=== PATIENT | female | born 1995 | race African-American/Black ===

== ENCOUNTER 2020-12-05 15:13 | Inpatient (IN) | payer OTHER, SELFPAY ==
--- NOTE | ~2020-12-05 | MR_ITS ---
EXAMINATION: MR BRAIN WITHOUT AND WITH CONTRAST CLINICAL INFORMATION: Abnormal EEG. Psychosis. Traumatic brain injury. COMPARISON: None available. TECHNIQUE: MRI of the brain was obtained using routine sequences without and following the administration of 8 mL of Gadavist intravenous contrast. FINDINGS: No focal restricted diffusion is demonstrated to suggest acute or subacute cerebral ischemia. No evidence of acute or chronic hemorrhagic products on heme-sensitive imaging. Normal parenchymal signal characteristics. The ventricles are normal in morphology and size. No abnormal mass effect. No midline shift. There is a mixed intensity nodular lesion associated with the pituitary gland that extends into the suprasellar cistern that demonstrates partial T1 hyperintensity and T2 hyperintensity. A portion of this lesion appears to demonstrate enhancement, potentially extending along the pituitary infundibulum. The lesion measures approximately 0.8 x 0.7 x 0.5 cm (although characterization is partially limited by the thickness of slices on this exam). Normal positioning of the cerebellar tonsils. Normal arterial and venous vascular flow voids are present. Small development of venous anomaly within the anterior right frontal lobe. No additional abnormal contrast enhancement. Normal, homogeneous marrow signal. Mild mucosal thickening of the paranasal sinuses. Moderate leftward nasal septal deviation. No signal abnormalities within the mastoids. Multiple soft tissue nodules within the superficial lobes of the left greater than right parotid gland, measuring up to 1.4 cm on the left. There appears to be mildly increased upper cervical chain lymph nodes which are not definitively increased in size on this exam. MR/MR head/brain wo/w con IMPRESSION: 1. No demonstrated acute intracranial abnormalities. 2. Mixed intensity, partially enhancing lesion associated with the pituitary gland extending into the suprasellar cistern. This may represent an underlying adenoma but could be further characterized with dedicated pituitary protocol MRI. 3. No additional suspicious intracranial enhancement. 4. Nonspecific mildly prominent upper cervical chain lymph nodes. Nodules within the bilateral parotid glands may represent intraparotid lymph nodes.
[2020-12-05 15:44] VITALS: BP 139/88; PULSE 113; RESP 16; TEMP 36.9; O2SAT 100; BMI 29.2
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
[2020-12-05 18:28] LABS: COVID-19 Test Negative (Negative); IDNOW Serial# 9DD0AD1C
--- NOTE | 2020-12-05 19:49 | PC.NURSE ---
pt seen by the care tea, pt sitting up in bed, visable on the monitor, protocal maintained with checks.
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
--- NOTE | 2020-12-05 23:01 | MHC.CARE ---
CARE Team reached out to [facility] and to [facility] to see if there were any inpatient psychiatric beds at [facility] as pt and pt's family would prefer that pt go there for treatment. Both [facility] and [facility] reported that there are no open beds and that there will be no open beds this weekend. Pt is a [facility] bedsearch at this time.
[2020-12-06 01:10] LABS: Basophils Percent Auto 0.7 % (0-2); Eosinophils Absolute Auto 0.1 X10*3/uL (0.0-0.4); Eosinophils Percent Auto 1.1 % (0-4); Hemoglobin 13.1 g/dl (12.0-16.0); Imm Gran Abs Auto 0.01 X10*3/uL (0.00-0.03); Imm Gran Pct Auto 0.2 % (0.0-0.4); Lymphocytes Absolute Auto 2.6 X10*3/uL (1.2-4.9); MANUAL DIFF FLAG NO; Mean Corpuscular HGB Conc 34.5 g/dl (31.0-35.0); Mean Corpuscular Hemoglobin 31.2 pg (27.0-33.0); Mean Corpuscular Volume 90.5 fL (80-98); Mean Platelet Volume 9.3 fL (9.4-12.3); Monocytes Absolute Auto 0.7 X10*3/uL (0.1-1.2); Monocytes Percent Auto 11.9 % (2-11); Neutrophils Absolute Auto 2.2 X10*3/uL (2.0-8.3); Neutrophils Percent Auto 40.1 % (45-73); Platelet Count 452 X10*3/uL (160-400); Red Cell Distribution Width 13.2 % (11.0-16.0); White Blood Count 5.6 X10*3/uL (4.8-10.8)
[2020-12-06 01:27] LABS: Alanine Aminotransferase 51 U/L (0-31); Albumin Level 4.3 g/dL (3.5-5.0); Alkaline Phosphatase 97 U/L (39-117); Anion Gap 14 (12-20); Aspartate Amino Transferase 35 U/L (5-31); Bilirubin Total 0.8 mg/dL (0.0-1.0); Blood Urea Nitrogen 5 mg/dL (9-16); Calcium 9.7 mg/dL (8.4-10.2); Carbon Dioxide 24 mmol/L (22-29); Chloride 106 mmol/L (96-108); Creatinine Clr Calc Pharmacy 115.2; Estimated Glomerular Filt Rate > 60; Glucose Random 101 mg/dL (60-115); Potassium 3.6 mmol/L (3.3-5.1); Sodium 140 mmol/L (135-145); Total Protein 7.4 g/dL (6.5-8.0)
--- NOTE | 2020-12-06 02:45 | PC.NURSE ---
pt trying to stay awake, pt nodding off. and is now laying down. pt visable on the monitor, rr reg even and no s./s of distress.
--- NOTE | 2020-12-06 04:57 | PC.NURSE ---
pt asked to give a urine and states she will not.
--- NOTE | 2020-12-06 10:26 | PHA.MEDREC ---
Pharmacy Consult ? Medication Reconciliation Pharmacy has completed the medication reconciliation. Patient refused to talk she said she already told multiple people what medications she take. All she said was she has not taken anything because she is sick. I spoke with patient's mother, Stephenie who reports patient refuses to take medications and it has been about 2 months since she last took her medications. Her active claim history includes: - bupropion XL 300 mg at bedtime - bupropion XL 300 mg daily - doxazosin 1 mg at bedtime - famotidine 20 mg BID - Zofran 2 mg q 6-8hr - olanzapine 15 mg bedtime - metoclopramide Selam Bourne, PharmD
[2020-12-06 10:28] VITALS: BP 143/101; PULSE 94; RESP 16; O2SAT 100
--- NOTE | 2020-12-06 11:46 | PC.NURSE ---
PT asking for nutrition consult, states that she has not eaten in days. Provider notified, consult placed.
--- NOTE | 2020-12-06 17:57 | PC.NURSE ---
PT appears to be responding internally at times. Can be seen making gestures with her hands while looking towards the wall, clapping her hands and laughing at random.
[2020-12-07 06:37] VITALS: BP 109/71; PULSE 104; RESP 18; O2SAT 96
--- NOTE | 2020-12-07 06:47 | PC.NURSE ---
pt slept thru the night, on waking pt was asked for a urine sample, pt states no one has asked her for one, pt has been asked multiple times and has refused. today pt states she will give us urine after drinking her apple juice. no foam cups due to the texture per pt. pt was ruid and used inapprop lang with staff.
[2020-12-07 12:06] VITALS: BP 114/75; PULSE 74; RESP 18; TEMP 37.1; O2SAT 97
--- NOTE | 2020-12-07 14:35 | PC.NURSE ---
pt responding to internal stimuli
--- NOTE | 2020-12-07 15:10 | PC.NURSE ---
Report received. Pt currently resting in room, no complaints at this time, calm and cooperative, no signs of distress. Continues to be a section 12 bed search.
--- NOTE | 2020-12-07 17:22 | PC.NURSE ---
Pt sitting on her bed, lights off in room. Responding to internal stimuli, conversing in self-dialogue.
--- NOTE | 2020-12-07 21:11 | PC.NURSE ---
Pt responding to internal stimuli; sitting on edge of bed, self dialoguing; Currently resting in bed eyes closed, respiration even, unlabored.
[2020-12-08 04:42] VITALS: BP 112/77; PULSE 104; RESP 16; TEMP 37; O2SAT 99
--- NOTE | 2020-12-08 05:59 | MHC.MBSS ---
Patient was up most part of the night watching TV, no distress observed/reported, behavior mostly non-disruptive but thought process disorganized, offered medication for sleep refused, refused to provide urine sample, patient is per-accepted to [facility], disposition is section 12 inpatient bed search, will continue to monitor.
--- NOTE | 2020-12-08 07:09 | PC.NURSE ---
patient appears to remain asleep at present respirations are evn and unlabored, patient appears in no distress
[2020-12-08 08:56] VITALS: BP 130/88; PULSE 92; RESP 14; TEMP 36.8; O2SAT 100
--- NOTE | 2020-12-08 09:07 | PC.NURSE ---
patient seemed irrritable upon t/w's approach with scheduled meds who ordered these meds t/w responded the provider when you came in dont they know griffin been throwing up for days? t/w this is the first i am hearing of it pt responds you need to write in my chart that i cant take pills patient states youre not going to do it, lyndsey olivas
[2020-12-08 11:31] LABS: Amphetamine Screen Urine Not Detected (Not Detect); Barbiturates, Urine Not Detected (Not Detect); Benzodiazepines Screen Urine Not Detected (Not Detect); Cannabinoid Screen Urine POSITIVE (Not Detect); Cocaine Screen Urine Not Detected (Not Detect); Fentanyl, urine Not Detected (Not Detect); Opiate Screen Urine Not Detected (Not Detect); Phencyclidine Screen Urine Not Detected (Not Detect)
--- NOTE | 2020-12-08 12:24 | ECG_ITS ---
Test Reason : atyp. antipsychotic use Blood Pressure : / mmHG Vent. Rate : 097 BPM Atrial Rate : 097 BPM P-R Int : 130 ms QRS Dur : 072 ms QT Int : 344 ms P-R-T Axes : 062 056 036 degrees QTc Int : 436 ms Normal sinus rhythm Normal ECG No previous ECGs available Referred By: Elma Johnson Electronically Signed By:MELCHOR GONZALES MD
[2020-12-08 15:46] VITALS: BP 132/76; PULSE 127; RESP 16; TEMP 36.4; O2SAT 99
--- NOTE | 2020-12-08 16:37 | PC.NURSE ---
Pt signed a Three Day Notice on Friday 12/08 up on 12/11.
--- NOTE | 2020-12-08 18:47 | PC.ADMIT ---
25 y.o female admitted from [facility] to [facility] for psychiatric evaluation. Pt arrived to ED via ambulance on sec 12a for decompensated behavior and functioning secondary to noncompliance with medications for past 2 months per outpatient therapist. Pt A&O, with irritable mood, full affect, and loud-pressured speech. Pt paranoid and delusional, does not appear to be responding to internal stimuli. Pt has been refusing to eat or drink and has lost a notable amount of weight, and has been sleeping poorly. Pt denies SI/HI but has a history of suicide attempts and has been aggressive and threatening towards family members. Pervious inpatient admissions at [facility]. Per Pt report Nausea and declined to any interventions including medications. Pt brief in interview. Pt reports that she does not feel safe at home and would like to have help with living arrangements. Pt denies si,hi, avh at this time. Pt On CV. Pt signed 3 day notice 12/08/2020 up on 12/11/2020. Pt on 15 min safety checks.
[2020-12-09 06:00] VITALS: BP 120/82; PULSE 105; RESP 18; TEMP 36.6; O2SAT 98
[2020-12-09 08:45] LABS: Estimated Average Glucose 97 mg/dL
[2020-12-09 09:06] LABS: Cholesterol 124 mg/dL; HDL Cholesterol 51 mg/dL; LDL Cholesterol Calculated 62 mg/dl; Triglycerides 56 mg/dL
[2020-12-09 09:19] LABS: Free T4 (Free Thyroxine) 1.07 ng/dL (0.71-1.85); Thyroid Stimulating Hormone 2.71 uIU/mL (0.32-4.0)
[2020-12-09 09:29] LABS: Folate 8.9 ng/mL (> or = 4.0); Vitamin B12 643 pg/mL (200-900)
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
--- NOTE | 2020-12-09 15:18 | MHC.CLN ---
RE: CONSULT HT 64 WT 170# IBW 120#+/-10% PT IS 142% IBW INDICATES OBESE FOR HT; BMI 29.2 LABS: 12/06/20 ALBUMIN 4.3 WNL MEDS; PT REPORTED SHE STOPPED TAKING HER MEDS FOR MONTHS ENN: 1422KCALS, 62G PROTEIN, 1860CC H20 DIET RX: REGULAR-APPROPRIATE PT REPORTED FEELING NAUSEOUS MAIN CAUSE OF NOT TAKING MEDS OR FOOD HOWEVER PT REFUSES TO TAKE MEDS FOR NAUSEA WHEN OFFERED PER STAFF PT'S NONCOMPLIANCE WITH PYSCH MEDS MAY BE CONTRIBUTOR TO POOR PO INTAKE IF NAUSEA CONTINUES; RECOMMEND GI CONSULT MONITOR PO INTAKE CLOSELY GSR TO ASSIST IN FILLING OUT MENU
[2020-12-09 18:00] VITALS: BP 126/81; PULSE 97; TEMP 36.3; O2SAT 100
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
[2020-12-10 19:46] VITALS: BP 124/95; PULSE 100; RESP 18; TEMP 36.4
[2020-12-11 06:00] VITALS: BP 118/83; PULSE 94; RESP 16; TEMP 36.3; O2SAT 98
--- NOTE | 2020-12-11 16:29 | P.EN_ITS ---
Event Note Date of Service: 12/11/20 Event Note: Return message from [facility]. Pt was told to stop Gena ace due to adverse response however she is cleared to take other medications prescribed. The team is available to pt as needed [phone]. GI consult ordered for pt today while hospitalized.
--- NOTE | 2020-12-11 16:29 | PM.EVENT ---
Event Note Date of Service: 12/11/20 Event Note: Return message from [facility]. Pt was told to stop Reglan due to adverse response however she is cleared to take other medications prescribed. The team is available to pt as needed [phone]. GI consult ordered for pt today while hospitalized.
--- NOTE | 2020-12-11 17:13 | P.PNPSI_ITS ---
Subjective Subjective Date of Service: 12/11/20 Reason For Visit: Schizoaffective Disorder Subjective Notes: Section 7 Interim History: Application for civil commitment filed due to pt's filing of TDN and decline to retract. Met with pt very briefly, initiated explanation of Section VII, she responded, Give me the paperwork, you are as useless as shit. She left the meeting abruptly after this. Care discussed with pt's father Jason Rueda who reports pt has been in and out of hospital over the past years including [facility], [facility] for ~1 month in 2019. Presentation this admit is similiar to last admit. Pt did well for a few years and was working [id number] began to become dysregulated Feb-Mar 2020. Parents have been monitoring her carefully- her father is a primary care physical and her mother a psychologist, however it is hard to know how to be most helpful to her at this time. Pt seen at [facility]-hx of Olanzapine plus Haldol, Prozac, Prazosin. She did well on these, Haldol was discontinued and Prozac changed to Wellbutrin due to GI sx-when she deteriorated (since spring 2020). PRITCHETT trials have been done-pt did not like them.[facility] had pt on PRITCHETT. Anibal nsideration due to GI issues may be possible if pt agrees. GI issues have been ongoing. She has no special food preferences. She completed cholecystectomy 5-6 years ago but does eat a high fat diet with lots of cheese and seltzer. She has not been eating regularly and family does have evidence that she has been vomiting. She has been smoking a significant amt of cannabis and family wonders if she has the vomiting syndrome associated with cannabis. Sx increased in Feb-Mar 2020 with repeat episodes of vomiting. Prozac was changed to Wellbutrin and pt's sx worsened with the change. [facility], Dr. Mart has done several tests-upper endoscopy was scheduled for this week. No clear cause of sx has been found yet. Team is thinking GI-Brain connection. Reglan trial was not helpful with resulting dystonia, possible seizure. EEG was completed last week. MRI was scheduled, CAT was completed 08/12. [facility] Teleneuro was consulted as well. Family has observed pt becoming more paranoid and spending more time in her room. She is unable to hear others and is dismissive which is not typical of her demeanor. Medication Compliance: No Side effects from medications: Yes (GI-Eval in progress) Attending Groups: No Review of Systems Acute medical concerns: Yes Nausea/Vomiting Medical Review of Systems: unchanged Review of Systems Review of Systems Yes Unobtainable due to mental status Constitutional: Reports poor appetite Gastrointestinal: Reports abdominal pain, Reports dyspepsia, Reports nausea, Reports vomiting and Reports other (unable to take her medicines.) Reports behavioral changes Psychiatric: Reports behavioral changes, Reports depression, Reports irritability, Reports mood swings, Reports paranoia and Reports homicidal ideation Mental Status Exam Mental Status Exam Patient Appearance: Disheveled Patient Orientation: Person, Place and Situation Level of Consciousness: Awake and Alert Patient Behavior: Guarded, Talkative, Suspicious, Aggressive (verbally), Belligerent, Swearing (a lot), Anxious, Fearful, Resistive to Care, Avoidant, Distractible, Good Eye Contact and Impulsive Mood Description: Labile and Angry Affect Description: Labile Patient Cognition Impaired: No Ability to Follow Directions: Good Speech Pattern: Clear, Perseverating, Spontaneous Speech, Rapid, Pressured and Includes Profanity Memory Description: Episodic Impaired Hallucinations: None (denies) Delusions: Paranoid Ideation and Present Perceptual Disturbances: Depersonalization and Derealization Thought Process: Racing, Distracted and Evasive Thought Content: positive for Racing, positive for Circumstantial, positive for Tangential, positive for Evasive, positive for Suicidal Ideation (denies) and positive for Homicidal Ideation (denies) Depressive Symptoms: Increased Anxiety, Insomnia, Diff. Making Decisions, Increased Irritability, Difficulty Sleeping, Changes in Appetite, Significant Weight Loss, Loss of Int. in Activity, Hopelessness, Isolating-Friends/Family, Unhappiness, Loss of Energy and Difficulty Concentrating Abnormal Motor Activity Signs and Symptoms: Agitation and Restlessness Judgement: Poor Diagnostics Vital Signs (24Hr): Vital Signs - 24 hr 12/10/20 19:46 12/11/20 06:00 Temperature 97.6 F 97.4 F Pulse Rate 100 94 Respiratory Rate 18 16 Blood Pressure 124/95 H 118/83 Pulse Oximetry 98 Body Mass Index 29.2 Labs Results: 12/06/20 01:03 12/06/20 01:03 Medications Medications Current Medications Acetaminophen (Acetaminophen 325 Mg Tablet) 650 mg PO Q6H PRN PRN Reason: Headache/Pain Mild Scale (1-3) Al Hydroxide/Mg Hydroxide (Magnesium Hydrox/Alum Hydrox 30 Ml Oral.Susp) 30 ml PO Q6H PRN PRN Reason: Heartburn/Nausea Bupropion HCl (Bupropion Hcl Xl 300 Mg Tab.Er.24h) 300 mg PO DAILY [facility] Last Admin: 12/11/20 08:09 Dose: Not Given Documented by: Hydroxyzine HCl (Hydroxyzine Hcl 25 Mg Tablet) 25 mg PO BEDTIME PRN PRN Reason: Anxiety Magnesium Hydroxide (Milk Of Magnesia 30 Ml Oral.Susp) 30 ml PO DAILY PRN PRN Reason: Constipation Olanzapine (Olanzapine 7.5 Mg Tablet) 15 mg PO DAILY [facility] Last Admin: 12/11/20 08:09 Dose: Not Given Documented by: Pharmacy Consult (Consult Rx Perform Med Rec) 1 each MISCELLANE ONCE PRN PRN Reason: Consult order Trazodone HCl (Trazodone Hcl 50 Mg Tablet) 50 mg PO BEDTIME PRN PRN Reason: Insomnia Allergies Allergies Allergy/AdvReac Type Severity Reaction Status Date / Time metoclopramide [From Reglan] Allergy Muscle Verified 12/06/20 07:02 cramps Assessment & Plan Assessment & Plan (1) Schizoaffective disorder, bipolar type: Status: Acute Code(s): F25.0 - Schizoaffective disorder, bipolar type (2) IBS (irritable bowel syndrome): Status: Acute Code(s): K58.9 - Irritable bowel syndrome without diarrhea Assessment and Plan: IMPRESSION: Pt is a 25 y.o. Female who carries a diagnosis of schizoaffective disorder. She has a hx of [facility] for paranoid delusional thought content and depression. Had OP services at [facility] but stopped taking medications and has been thus been decompensating. Crisis/ED reports family is afraid of patients aggressive behaviors, reports neglecting self care, not eating, not sleeping... Currently Pt is refusing PO medications at this time, may be interested in IM zyprexa. Currently patient does not want male provider and effort is being made to see if she can be switched to female provider. Patient admitted for safety and medication management Plan: Patient signed CV; patient then signed 3 day notice Q 15 minutes checks for safety Will work on switching to female provider Patient refusing p.o. meds Patient may be open to taking Zyprexa intramuscularly Will obtain collateral from family 12/10/20: Collateral contact with [facility] MRI- MRCP negative on 10/08/20-Pt provided with a copy center associate y of this. Message left for Dr. Mart of [facility] [phone] to discuss GI plan of care and if pt needs a consult while admitted. Nutritional eval ordered Pt declines contact with family and providers TDN expires 12/11/20. Pt informed I will proceed with request for commitment and asked to reconsider remaining here so we may re-establish her medications safely with consultation from her GI team, which cannot all be accomplished by 12/11. She will consider. She has made no decision on meds yet. 12/11/20 Care discussed with pt's father Section VII filed. GI consult appreciated. Continue evaluation. I spent 45_ minutes with the patient and/or on the patient floor today, greater than?50% of which was spent counseling/coordinating care. Patient educated on: therapeutic strategies and other Informed Consent: further education needed Reason for contiued inpatient stay Substantial Risk for: harm to self, harm to others, inability to function and med/psych decompensation
[2020-12-11 18:00] VITALS: BP 108/85; PULSE 80
--- NOTE | 2020-12-11 21:24 | PM.GICN ---
History of Present Illness Data of Consult Service Date: 12/11/20 Requesting physician: Hiram Canales Primary Care Provider: Unknown Physician HPI Reason for consult: nausea 25 yr old f with schizoaffective disorder and depression who I saw with a radarman on the psych unit. Patient admitted with decompensation of her mental condition per notes although this is denied by her. She has had chronic nausea and mid abdominal pain with flaky stools since a very young age. Abdominal oain is crampy and worse with food even water. Symptoms are intermittent and seem to occur every other week. She takes THC daily since teenage years, and did stop it for 6 months with no improvement in sx. in fact she felt it made her sx better. She was given reglan but couldn't cont due to cramps and SE. she denies reflux sx. Does admit to [facility] She said she had EGD 2012 and was 'blurry' inside. She also had GI care at [facility] with Dr Mart and had an MRi that was apparently nml. She denies having had a colonoscopy. Review of Systems Review of Systems: Yes Unobtainable due to mental status and Other (unoperative) Gastrointestinal: Gastrointestinal: Reports abdominal pain, Reports dyspepsia, Reports nausea and Reports other (unable to take her medicines.) Neurologic: Reports behavioral changes Psychiatric: Psychiatric: Reports behavioral changes and Reports depression [facility] Past Medical History Medical History (Updated 12/11/20 @ 21:53 by Archana Gomez MD) IBS (irritable bowel syndrome) Schizoaffective disorder, bipolar type Schizophrenia Social History Social History Household Members: Family Housing: House Do you presently have visiting nurse or other home services: No Unable to assess alcohol history related to: Unknown Patient Tobacco Use Status: Former Tobacco user Tobacco use type: Cigarette Smoked in Last 30 Days: No e-Cigarette/Vaping Use: Never Used Patient Interested in Nicotine Replacement: No Patient Given Instructions on How to Stop Smoking: No Second Hand Smoke Exposure: No Use of substances other than those prescribed or required for medical reasons: Yes Substance Use Type: Marijuana Substance Use Frequency: Daily Last Used Substance: Just Prior to Admission Currently Displaying Signs/Symptoms of Drug Intoxication Withdrawal: No Any prior treatment program specific to substance use: No Advance Directives: No Advance Directives Information Provided: Yes Healthcare Proxy: No Guardian: No Do you have thoughts of harming others: None Do you have a plan to hurt others: No Plan Recently lost weight without trying: Yes How much weight loss: Unsure Eating poorly because of decreased appetite: Yes Nutrition screen score: 5 Nutrition Risks: Poor intake 0-25% >4 days Patient : No : No Poor oral hygiene: No service: No Meds Allergies Allergy/AdvReac Type Severity Reaction Status Date / Time metoclopramide [From Reglan] Allergy Muscle Verified 12/06/20 07:02 cramps Active Medications: Current Medications Acetaminophen (Acetaminophen 325 Mg Tablet) 650 mg PO Q6H PRN PRN Reason: Headache/Pain Mild Scale (1-3) Al Hydroxide/Mg Hydroxide (Magnesium Hydrox/Alum Hydrox 30 Ml Oral.Susp) 30 ml PO Q6H PRN PRN Reason: Heartburn/Nausea Bupropion HCl (Bupropion Hcl Xl 300 Mg Tab.Er.24h) 300 mg PO DAILY [facility] Last Admin: 12/11/20 08:09 Dose: Not Given Documented by: Hydroxyzine HCl (Hydroxyzine Hcl 25 Mg Tablet) 25 mg PO BEDTIME PRN PRN Reason: Anxiety Magnesium Hydroxide (Milk Of Magnesia 30 Ml Oral.Susp) 30 ml PO DAILY PRN PRN Reason: Constipation Olanzapine (Olanzapine 7.5 Mg Tablet) 15 mg PO DAILY [facility] Last Admin: 12/11/20 08:09 Dose: Not Given Documented by: Pharmacy Consult (Consult Rx Perform Med Rec) 1 each MISCELLANE ONCE PRN PRN Reason: Consult order Trazodone HCl (Trazodone Hcl 50 Mg Tablet) 50 mg PO BEDTIME PRN PRN Reason: Insomnia Home Medications Medication Instructions Recorded Confirmed Last Taken Type bupropion HCl 300 mg 24 hr tablet, 300 mg PO QAM 12/07/20 12/07/20 Unknown History extended release (Wellbutrin XL) olanzapine 15 mg tablet (Zyprexa) 15 mg PO DAILY 12/07/20 12/07/20 Unknown History Physical Exam Vital Signs: Vital Signs: Last Vital Signs Temp 97.4 F 12/11/20 06:00 Pulse 94 12/11/20 06:00 Resp 16 12/11/20 06:00 BP 118/83 12/11/20 06:00 Pulse Ox 98 12/11/20 06:00 Body Mass Index 29.2 EXAM: GENERAL: The patient is well developed and nontoxic. VITAL SIGNS:see workflow HEENT: Nonicteric sclerae, PERRLA, EOMI. Oropharynx clear. Moist mucous membranes. Conjunctivae appear well perfused. No thyroid mass. CHEST: Chest wall is nontender. HEART: Regular rate and rhythm without murmurs. LUNGS: Clear to auscultation bilaterally. ABDOMEN: Soft, positive bowel sounds, nontender, no organomegaly.no flank tenderness SKIN: No rash, no excessive bruising, petechiae, or purpura. NEUROLOGIC: Cranial nerves II-XII intact without motor/sensory deficit. psych - abn affect, slash shah on arms Const: Other: Appearance: Alert. Oriented, pacing, uncooperative Eyes: Pupils equal, round and reactive to light. ENT: Pharynx normal. Neck: Normal inspection CVS: Unable to assess, patient does not want to be touched Respiratory: No respiratory distress Abdomen: Unable to assess Skin: Normal color Extremities: Standing, walking with steady gait Neuro: Cranial nerves 2-12 grossly intact Psych: Seems manic, uncooperative, angry Results Labs CBC & Chem 7: 12/06/20 01:03 12/06/20 01:03 ECG Attestation: I personally reviewed and interpreted this ECG as follows: (SR, nml QTC) Assessment and Plan (1) Nausea: Status: Acute 1/ Persistent nausea and abn bowel habit with abdominal pain DDX: functional dyspepsia, gastroparesis, gastritis, esophagitis, GERD, less likely central cause, medication effect, mast cell diorder plan: 1/ get notes from [facility] re- recent GI work up 2/ will order stool tests and labs incl calprotectin, elastase , tryptase, histamine, celiac serology, h pylori stool ag test 3/ can try sublingual zofran4 mg q6-8 hr meantime and add daily pantoprazole 20 mg, assess response 4/ if no recent egd thne may consider this as well as colonoscopy with tissue biopsy as an o/p Procedures Date of Service Date of Service: 12/11/20
[2020-12-11 23:24] LABS: Folate 6.8 ng/mL (> or = 4.0); Vitamin B12 561 pg/mL (200-900)
[2020-12-12 00:05] LABS: Erythrocyte Sedimentation Rate 9 MM/HR (0-20)
[2020-12-12 06:00] VITALS: BP 138/65; PULSE 101; RESP 16; TEMP 36.6; O2SAT 100
--- NOTE | 2020-12-12 16:46 | P.PNPSI_ITS ---
Subjective Subjective Date of Service: 12/12/20 Reason For Visit: Schizoaffective Disorder Subjective Notes: Section 7 Interim History: Visable in milieu however does spend much time in her room. Today, awake in bed, declines to meet, does accept a handout on Olanzapine-both IM, PO, short and long acting. GI eval in progress. Records received from [facility] WNL.Section VII. Court 12/17. Medication Compliance: No Side effects from medications: Yes (GI) Attending Groups: No Review of Systems Acute medical concerns: No Medical Review of Systems: unchanged Review of Systems Review of Systems Yes Unobtainable due to mental status and Other (unoperative) Gastrointestinal: Reports abdominal pain, Reports dyspepsia, Reports nausea and Reports other (unable to take her medicines.) Reports behavioral changes Psychiatric: Reports behavioral changes and Reports depression Mental Status Exam Mental Status Exam Patient Appearance: Disheveled Patient Orientation: Person, Place and Situation Level of Consciousness: Awake and Alert Patient Behavior: Guarded, Talkative, Suspicious, Aggressive (verbally), Belligerent, Swearing (a lot), Anxious, Fearful, Resistive to Care, Avoidant, Distractible, Good Eye Contact and Impulsive Mood Description: Labile and Angry Affect Description: Labile Patient Cognition Impaired: No Ability to Follow Directions: Good Speech Pattern: Clear, Perseverating, Spontaneous Speech, Rapid, Pressured and Includes Profanity Memory Description: Episodic Impaired Hallucinations: None (denies) Delusions: Paranoid Ideation and Present Perceptual Disturbances: Depersonalization and Derealization Thought Process: Racing, Distracted and Evasive Thought Content: positive for Racing, positive for Circumstantial, positive for Tangential, positive for Evasive, positive for Suicidal Ideation (denies) and positive for Homicidal Ideation (denies) Depressive Symptoms: Increased Anxiety, Insomnia, Diff. Making Decisions, Increased Irritability, Difficulty Sleeping, Changes in Appetite, Significant Weight Loss, Loss of Int. in Activity, Hopelessness, Isolating-Friends/Family, Unhappiness, Loss of Energy and Difficulty Concentrating Abnormal Motor Activity Signs and Symptoms: Agitation and Restlessness Judgement: Poor Diagnostics Vital Signs (24Hr): Vital Signs - 24 hr 12/11/20 18:00 12/12/20 06:00 Temperature 97.9 F Pulse Rate 80 101 H Respiratory Rate 16 Blood Pressure 108/85 138/65 Pulse Oximetry 100 Body Mass Index 29.2 Labs Results: 12/06/20 01:03 12/06/20 01:03 Labs: Laboratory Results - last 48 hr 12/11/20 12/11/20 22:23 22:23 ESR 9 Vitamin B12 561 Folate 6.8 Medications Medications Current Medications Acetaminophen (Acetaminophen 325 Mg Tablet) 650 mg PO Q6H PRN PRN Reason: Headache/Pain Mild Scale (1-3) Al Hydroxide/Mg Hydroxide (Magnesium Hydrox/Alum Hydrox 30 Ml Oral.Susp) 30 ml PO Q6H PRN PRN Reason: Heartburn/Nausea Bupropion HCl (Bupropion Hcl Xl 300 Mg Tab.Er.24h) 300 mg PO DAILY [facility] Last Admin: 12/12/20 08:32 Dose: Not Given Documented by: Hydroxyzine HCl (Hydroxyzine Hcl 25 Mg Tablet) 25 mg PO BEDTIME PRN PRN Reason: Anxiety Magnesium Hydroxide (Milk Of Magnesia 30 Ml Oral.Susp) 30 ml PO DAILY PRN PRN Reason: Constipation Olanzapine (Olanzapine 7.5 Mg Tablet) 15 mg PO DAILY [facility] Last Admin: 12/12/20 08:32 Dose: Not Given Documented by: Pharmacy Consult (Consult Rx Perform Med Rec) 1 each MISCELLANE ONCE PRN PRN Reason: Consult order Trazodone HCl (Trazodone Hcl 50 Mg Tablet) 50 mg PO BEDTIME PRN PRN Reason: Insomnia Allergies Allergies Allergy/AdvReac Type Severity Reaction Status Date / Time metoclopramide [From Reglan] Allergy Muscle Verified 12/06/20 07:02 cramps Assessment & Plan Assessment & Plan (1) Schizoaffective disorder, bipolar type: Status: Acute Code(s): F25.0 - Schizoaffective disorder, bipolar type (2) IBS (irritable bowel syndrome): Status: Acute Code(s): K58.9 - Irritable bowel syndrome without diarrhea Assessment and Plan: IMPRESSION: Pt is a 25 y.o. Female who carries a diagnosis of schizoaffective disorder. She has a hx of [facility] for paranoid delusional thought content and depression. Had OP services at [facility] but stopped taking medications and has been thus been decompensating. Crisis/ED reports family is afraid of patients aggressive behaviors, reports neglecting self care, not eating, not sleeping... Currently Pt is refusing PO medications at this time, may be interested in IM zyprexa. Currently patient does not want male provider and effort is being made to see if she can be switched to female provider. Patient admitted for safety and medication management Plan: Patient signed CV; patient then signed 3 day notice Q 15 minutes checks for safety Will work on switching to female provider Patient refusing p.o. meds Patient may be open to taking Zyprexa intramuscularly Will obtain collateral from family 12/10/20: Collateral contact with [facility] MRI- MRCP negative on 10/08/20-Pt provided with a copy of this. Message left for Dr. Mart of [facility] [phone] to discuss GI plan of care and if pt needs a consult while admitted. Nutritional eval ordered Pt declines contact with family and providers TDN expires 12/11/20. Pt informed I will proceed with request for commitment and asked to reconsider remaining here so we may re-establish her medications safely with consultation from her GI team, which cannot all be accomplished by 12/11. She will consider. She has made no decision on meds yet. 12/11/20 Care discussed with pt's father Section VII filed. GI consult appreciated. Continue evaluation. 12/12/20 Continue eval Pt given information on IM Olanzapine for review. I spent minutes with the patient and/or on the patient floor today, greater than?50% of which was spent counseling/coordinating care. Reason for contiued inpatient stay Substantial Risk for: harm to self, harm to others, inability to function, rapid decompensation and med/psych decompensation
[2020-12-13 11:35] LABS: Ceruloplasmin 34 mg/dL (18-53)
[2020-12-13 18:00] VITALS: BP 109/65; PULSE 96; RESP 18; TEMP 37.1; O2SAT 100
--- NOTE | 2020-12-13 18:53 | HO.PSYCHPN ---
Subjective Subjective Date of Service: 12/13/20 Reason For Visit: Schizoaffective Disorder Subjective Notes: Floyd Warning and Section 7 Medical Problems Affecting Mental Status: No Interim History: Delaney was mono-syllabic. She continues to refuse treatment and she has no insight into her illness. She tends to isolate and stay in her room. Medication Compliance: Intermittent Side effects from medications: No Attending Groups: No Review of Systems Acute medical concerns: No Medical Review of Systems: unchanged Mental Status Exam Mental Status Exam Patient Appearance: Disheveled Patient Orientation: Person, Place and Situation Level of Consciousness: Awake and Alert Patient Behavior: Guarded, Talkative, Suspicious, Aggressive (verbally), Belligerent, Swearing (a lot), Anxious, Fearful, Resistive to Care, Avoidant, Distractible, Good Eye Contact and Impulsive Mood Description: Labile and Angry Affect Description: Labile Patient Cognition Impaired: No Ability to Follow Directions: Good Speech Pattern: Clear, Perseverating, Spontaneous Speech, Rapid, Pressured and Includes Profanity Memory Description: Episodic Impaired Hallucinations: None (denies) Delusions: Paranoid Ideation and Present Perceptual Disturbances: Depersonalization and Derealization Thought Process: Racing, Distracted and Evasive Thought Content: positive for Racing, positive for Circumstantial, positive for Tangential, positive for Evasive, positive for Suicidal Ideation (denies) and positive for Homicidal Ideation (denies) Depressive Symptoms: Increased Anxiety, Insomnia, Diff. Making Decisions, Increased Irritability, Difficulty Sleeping, Changes in Appetite, Significant Weight Loss, Loss of Int. in Activity, Hopelessness, Isolating-Friends/Family, Unhappiness, Loss of Energy and Difficulty Concentrating Abnormal Motor Activity Signs and Symptoms: Agitation and Restlessness Judgement: Poor Diagnostics Vital Signs (24Hr): Vital Signs - 24 hr 12/13/20 18:00 Temperature 98.7 F Pulse Rate 96 Respiratory Rate 18 Blood Pressure 109/65 Pulse Oximetry 100 Body Mass Index 29.2 Labs Results: 12/06/20 01:03 12/06/20 01:03 Labs: Laboratory Results - last 48 hr 12/11/20 12/11/20 12/11/20 22:23 22:23 22:23 ESR 9 Ceruloplasmin 34 Vitamin B12 561 Folate 6.8 Medications Medications Current Medications Acetaminophen (Acetaminophen 325 Mg Tablet) 650 mg PO Q6H PRN PRN Reason: Headache/Pain Mild Scale (1-3) Al Hydroxide/Mg Hydroxide (Magnesium Hydrox/Alum Hydrox 30 Ml Oral.Susp) 30 ml PO Q6H PRN PRN Reason: Heartburn/Nausea Bupropion HCl (Bupropion Hcl Xl 300 Mg Tab.Er.24h) 300 mg PO DAILY [facility] Last Admin: 12/13/20 09:08 Dose: Not Given Documented by: Hydroxyzine HCl (Hydroxyzine Hcl 25 Mg Tablet) 25 mg PO BEDTIME PRN PRN Reason: Anxiety Magnesium Hydroxide (Milk Of Magnesia 30 Ml Oral.Susp) 30 ml PO DAILY PRN PRN Reason: Constipation Olanzapine (Olanzapine 7.5 Mg Tablet) 15 mg PO DAILY [facility] Last Admin: 12/13/20 09:08 Dose: Not Given Documented by: Pharmacy Consult (Consult Rx Perform Med Rec) 1 each MISCELLANE ONCE PRN PRN Reason: Consult order Trazodone HCl (Trazodone Hcl 50 Mg Tablet) 50 mg PO BEDTIME PRN PRN Reason: Insomnia Allergies Allergies Allergy/AdvReac Type Severity Reaction Status Date / Time metoclopramide [From Reglan] Allergy Muscle Verified 12/06/20 07:02 cramps Assessment & Plan Assessment & Plan (1) Schizoaffective disorder, bipolar type: Status: Acute Code(s): F25.0 - Schizoaffective disorder, bipolar type (2) IBS (irritable bowel syndrome): Status: Acute Code(s): K58.9 - Irritable bowel syndrome without diarrhea Assessment and Plan: IMPRESSION: Pt is a 25 y.o. Female who carries a diagnosis of schizoaffective disorder. She has a hx of [facility] for paranoid delusional thought content and depression. Had OP services at [facility] but stopped taking medications and has been thus been decompensating. Crisis/ED reports family is afraid of patients aggressive behaviors, reports neglecting self care, not eating, not sleeping... Currently Pt is refusing PO medications at this time, may be interested in IM zyprexa. Currently patient does not want male provider and effort is being made to see if she can be switched to female provider. Patient admitted for safety and medication management Plan: Patient signed CV; patient then signed 3 day notice Q 15 minutes checks for safety Will work on switching to female provider Patient refusing p.o. meds Patient may be open to taking Zyprexa intramuscularly Will obtain collateral from family 12/10/20: Collateral contact with [facility] MRI- MRCP negative on 10/08/20-Pt provided with a copy of this. Message left for Dr. Mart of [facility] [phone] to discuss GI plan of care and if pt needs a consult while admitted. Nutritional eval ordered Pt declines contact with family and providers TDN expires 12/11/20. Pt informed I will proceed with request for commitment and asked to reconsider remaining here so we may re-establish her medications safely with consultation from her GI team, which cannot all be accomplished by 12/11. She will consider. She has made no decision on meds yet. 12/11/20 Care discussed with pt's father Section VII filed. GI consult appreciated. Continue evaluation. 12/12/20 Continue eval Pt given information on IM Olanzapine for review. No change to the above plans I spent ___10___ minutes with the patient and/or on the patient floor today, greater than?50% of which was spent counseling/coordinating care. Informed Consent: does not understand Reason for contiued inpatient stay Substantial Risk for: inability to function and rapid decompensation
[2020-12-14 06:00] VITALS: BP 116/70; PULSE 93; RESP 16; TEMP 36.3; O2SAT 100
[2020-12-14 18:00] VITALS: BP 116/72; PULSE 88; TEMP 36.6; O2SAT 100
--- NOTE | 2020-12-14 18:49 | HO.PSYCHPN ---
Subjective Subjective Date of Service: 12/14/20 Reason For Visit: Schizoaffective Disorder Subjective Notes: Section 7 Medical Problems Affecting Mental Status: No Interim History: Delaney remains resistant to all aspects of treatment. She has not been bathing. She has been confrontational with her room mate, and hence a room change was made. She becomes angry when approached, and asks to be left alone. Medication Compliance: No Attending Groups: No Review of Systems Acute medical concerns: No Mental Status Exam Mental Status Exam Patient Appearance: Disheveled Patient Orientation: Person, Place and Situation Level of Consciousness: Awake and Alert Patient Behavior: Guarded, Suspicious, Aggressive (verbally), Belligerent, Swearing (a lot), Anxious, Fearful, Resistive to Care, Avoidant, Distractible, Good Eye Contact and Impulsive Mood Description: Labile and Angry Affect Description: Labile Patient Cognition Impaired: No Ability to Follow Directions: Good Speech Pattern: Clear, Perseverating, Spontaneous Speech, Rapid, Pressured and Includes Profanity Memory Description: Episodic Impaired Hallucinations: None (denies) Delusions: Paranoid Ideation and Present Perceptual Disturbances: Depersonalization and Derealization Thought Process: Racing, Distracted and Evasive Thought Content: positive for Racing, positive for Circumstantial, positive for Tangential, positive for Evasive, positive for Suicidal Ideation (denies) and positive for Homicidal Ideation (denies) Depressive Symptoms: Increased Anxiety, Insomnia, Diff. Making Decisions, Increased Irritability, Difficulty Sleeping, Changes in Appetite, Significant Weight Loss, Loss of Int. in Activity, Hopelessness, Isolating-Friends/Family, Unhappiness, Loss of Energy and Difficulty Concentrating Abnormal Motor Activity Signs and Symptoms: Agitation and Restlessness Judgement: Poor Diagnostics Vital Signs (24Hr): Vital Signs - 24 hr 12/14/20 06:00 Temperature 97.3 F Pulse Rate 93 Respiratory Rate 16 Blood Pressure 116/70 Pulse Oximetry 100 Body Mass Index 29.2 Labs Results: 12/06/20 01:03 12/06/20 01:03 Labs: Laboratory Results - last 48 hr 12/11/20 22:23 Ceruloplasmin 34 Medications Medications Current Medications Acetaminophen (Acetaminophen 325 Mg Tablet) 650 mg PO Q6H PRN PRN Reason: Headache/Pain Mild Scale (1-3) Al Hydroxide/Mg Hydroxide (Magnesium Hydrox/Alum Hydrox 30 Ml Oral.Susp) 30 ml PO Q6H PRN PRN Reason: Heartburn/Nausea Bupropion HCl (Bupropion Hcl Xl 300 Mg Tab.Er.24h) 300 mg PO DAILY [facility] Last Admin: 12/14/20 08:18 Dose: Not Given Documented by: Hydroxyzine HCl (Hydroxyzine Hcl 25 Mg Tablet) 25 mg PO BEDTIME PRN PRN Reason: Anxiety Magnesium Hydroxide (Milk Of Magnesia 30 Ml Oral.Susp) 30 ml PO DAILY PRN PRN Reason: Constipation Olanzapine (Olanzapine 7.5 Mg Tablet) 15 mg PO DAILY [facility] Last Admin: 12/14/20 08:18 Dose: Not Given Documented by: Pharmacy Consult (Consult Rx Perform Med Rec) 1 each MISCELLANE ONCE PRN PRN Reason: Consult order Trazodone HCl (Trazodone Hcl 50 Mg Tablet) 50 mg PO BEDTIME PRN PRN Reason: Insomnia Allergies Allergies Allergy/AdvReac Type Severity Reaction Status Date / Time metoclopramide [From Reglan] Allergy Muscle Verified 12/06/20 07:02 cramps Assessment & Plan Assessment & Plan (1) Schizoaffective disorder, bipolar type: Status: Acute Code(s): F25.0 - Schizoaffective disorder, bipolar type (2) IBS (irritable bowel syndrome): Status: Acute Code(s): K58.9 - Irritable bowel syndrome without diarrhea Assessment and Plan: IMPRESSION: Pt is a 25 y.o. Female who carries a diagnosis of schizoaffective disorder. She has a hx of [facility] for paranoid delusional thought content and depression. Had OP services at [facility] but stopped taking medications and has been thus been decompensating. Crisis/ED reports family is afraid of patients aggressive behaviors, reports neglecting self care, not eating, not sleeping... Currently Pt is refusing PO medications at this time, may be interested in IM zyprexa. Currently patient does not want male provider and effort is being made to see if she can be switched to female provider. Patient admitted for safety and medication management Plan: Patient signed CV; patient then signed 3 day notice Q 15 minutes checks for safety Will work on switching to female provider Patient refusing p.o. meds Patient may be open to taking Zyprexa intramuscularly Will obtain collateral from family 12/10/20: Collateral contact with [facility] MRI- MRCP negative on 10/08/20-Pt provided with a copy of this. Message left for Dr. Mart of [facility] [phone] to discuss GI plan of care and if pt needs a consult while admitted. Nutritional eval ordered Pt declines contact with family and providers TDN expires 12/11/20. Pt informed I will proceed with request for commitment and asked to reconsider remaining here so we may re-establish her medications safely with consultation from her GI team, which cannot all be accomplished by 12/11. She will consider. She has made no decision on meds yet. 12/11/20 Care discussed with pt's father Section VII filed. GI consult appreciated. Continue evaluation. 12/12/20 Continue eval Pt given information on IM Olanzapine for review. 12/13/20: No change to the above plans 12/14/20: No changes to the current plan I spent minutes with the patient and/or on the patient floor today, greater than?50% of which was spent counseling/coordinating care. Patient educated on: medication risk/benefits Informed Consent: does not understand Reason for contiued inpatient stay Substantial Risk for: harm to others, inability to function and rapid decompensation
[2020-12-15 06:00] VITALS: BP 105/57; PULSE 94; TEMP 37.2; O2SAT 99
[2020-12-15] MEDS: Ondansetron ODT 4 MG TAB.RAPDIS TRANSLINGU (12:56)
--- NOTE | 2020-12-15 15:54 | P.PNPSI_ITS ---
Subjective Subjective Date of Service: 12/15/20 Reason For Visit: Schizoaffective Disorder Subjective Notes: Section 7 Healthcare Proxy: No Guardianship: No Medical Problems Affecting Mental Status: No Interim History: Pt currently residing in Room 505 next to nursing station. Unable to give accurate history regarding medications. Telling tw to give haldol, however, per father (a physician) pt with hx of significant dystonia with Haldol. Discussed with pt. who states he is invalid, not existent and she will proceed with lawsuit for our consideration of his information. Attempted to discuss with pt efforts to treat her effectively and well, avoiding medications with adverse SE and in consideration of her PTSD, wanting no distress brought to her which is avoidable. Pt's response was in stating that she would decide the course of treatment, not family, out pt team, previous treatment experience, court. Consistent threats of lawsuit. Review with pt GI consult progress thus far- Zofran prn ordered, pantoprazole ordered but not available at [facility] so GI leadership development consultant chose Prilosec. Per father, pt has trialed Prilosec for several months without efficacy, Famotidine initially helped then stopped working, and Carafate trial of 2-3 doses precipitated vomiting. Pt to consider Zofran prn. GI diagnostics still pending. Pt's father called to provide information-family has cleaned pt's room since her admission and have found plates of food, black mold, perishable items in her room for weeks next to her bed which they see as evidence of pt's level of psychosis, unawareness and inability to care for herself. Medication Compliance: No Side effects from medications: No Attending Groups: No Review of Systems Acute medical concerns: Yes Review of Systems: GI Eval in progress. Review of Systems Review of Systems Yes Unobtainable due to mental status Reports behavioral changes Psychiatric: Reports anxiety, Reports behavioral changes, Reports change in appetite, Reports depression, Reports hopelessness, Reports irritability, Report s mood swings and Reports paranoia Mental Status Exam Mental Status Exam Patient Appearance: Disheveled Patient Orientation: Person, Place and Situation Level of Consciousness: Awake and Alert Patient Behavior: Guarded, Suspicious, Aggressive (verbally), Belligerent, Swearing (a lot), Anxious, Fearful, Resistive to Care, Avoidant, Distractible, Good Eye Contact and Impulsive Mood Description: Labile and Angry Affect Description: Labile Patient Cognition Impaired: No Ability to Follow Directions: Good Speech Pattern: Clear, Perseverating, Spontaneous Speech, Rapid, Pressured and Includes Profanity Memory Description: Episodic Impaired Hallucinations: None (denies) Delusions: Paranoid Ideation and Present Perceptual Disturbances: Depersonalization and Derealization Thought Process: Racing, Distracted and Evasive Thought Content: positive for Racing, positive for Circumstantial, positive for Tangential, positive for Evasive, positive for Suicidal Ideation (denies) and positive for Homicidal Ideation (denies) Depressive Symptoms: Increased Anxiety, Insomnia, Diff. Making Decisions, Increased Irritability, Difficulty Sleeping, Changes in Appetite, Significant Weight Loss, Loss of Int. in Activity, Hopelessness, Isolating-Friends/Family, Unhappiness, Loss of Energy and Difficulty Concentrating Abnormal Motor Activity Signs and Symptoms: Agitation and Restlessness Judgement: Poor Diagnostics Vital Signs (24Hr): Vital Signs - 24 hr 12/14/20 18:00 12/15/20 06:00 Temperature 98 F 98.9 F Pulse Rate 88 94 Blood Pressure 116/72 105/57 L Pulse Oximetry 100 99 Body Mass Index 29.2 Labs Results: 12/06/20 01:03 12/06/20 01:03 Medications Medications Current Medications Acetaminophen (Acetaminophen 325 Mg Tablet) 650 mg PO Q6H PRN PRN Reason: Headache/Pain Mild Scale (1-3) Al Hydroxide/Mg Hydroxide (Magnesium Hydrox/Alum Hydrox 30 Ml Oral.Susp) 30 ml PO Q6H PRN PRN Reason: Heartburn/Nausea Bupropion HCl (Bupropion Hcl Xl 300 Mg Tab.Er.24h) 300 mg PO DAILY [facility] Last Admin: 12/15/20 08:24 Dose: Not Given Documented by: Hydroxyzine HCl (Hydroxyzine Hcl 25 Mg Tablet) 25 mg PO BEDTIME PRN PRN Reason: Anxiety Magnesium Hydroxide (Milk Of Magnesia 30 Ml Oral.Susp) 30 ml PO DAILY PRN PRN Reason: Constipation Olanzapine (Olanzapine 7.5 Mg Tablet) 15 mg PO DAILY [facility] Last Admin: 12/15/20 08:24 Dose: Not Given Documented by: Omeprazole (Omeprazole 20 Mg Capsule.Dr) 20 mg PO DAILY@0630 [facility] Last Admin: 12/15/20 12:59 Dose: Not Given Documented by: Ondansetron HCl (Ondansetron Odt 4 Mg Tab.Rapdis) 4 mg TRANSLINGU Q8H PRN PRN Reason: Nausea Last Admin: 12/15/20 12:56 Dose: 4 mg Documented by: Pharmacy Consult (Consult Rx Perform Med Rec) 1 each MISCELLANE ONCE PRN PRN Reason: Consult order Trazodone HCl (Trazodone Hcl 50 Mg Tablet) 50 mg PO BEDTIME PRN PRN Reason: Insomnia Allergies Allergies Allergy/AdvReac Type Severity Reaction Status Date / Time metoclopramide [From Reglan] Allergy Muscle Verified 12/06/20 07:02 cramps Assessment & Plan Assessment & Plan (1) Schizoaffective disorder, bipolar type: Status: Acute Code(s): F25.0 - Schizoaffective disorder, bipolar type (2) IBS (irritable bowel syndrome): Status: Acute Code(s): K58.9 - Irritable bowel syndrome without diarrhea Assessment and Plan: IMPRESSION: Pt is a 25 y.o. Female who carries a diagnosis of schizoaffective disorder. She has a hx of [facility] for paranoid delusional thought content and depression. Had OP services at [facility] but stopped taking medications and has been thus been decompensating. Crisis/ED reports family is afraid of patients aggressive behaviors, reports neglecting self care, not eating, not sleeping... Currently Pt is refusing PO medications at this time, may be interested in IM zyprexa. Currently patient does not want male provider and effort is being made to see if she can be switched to female provider. Patient admitted for safety and medication management Plan: Patient signed CV; patient then signed 3 day notice Q 15 minutes checks for safety Will work on switching to female provider Patient refusing p.o. meds Patient may be open to taking Zyprexa intramuscularly Will obtain collateral from family 12/10/20: Collateral contact with [facility] MRI- MRCP negative on 10/08/20-Pt provided with a copy of this. Message left for Dr. Mart of [facility] [phone] to discuss GI plan of care and if pt needs a consult while admitted. Nutritional eval ordered Pt declines contact with family and providers TDN expires 12/11/20. Pt informed I will proceed with request for commitment and asked to reconsider remaining here so we may re-establish her medications safely with consultation from her GI team, which cannot all be accomplished by 12/11. She will consider. She has made no decision on meds yet. 12/11/20 Care discussed with pt's father Section VII filed. GI consult appreciated. Continue evaluation. 12/12/20 Continue eval Pt given information on IM Olanzapine for review. 12/13/20: No change to the above plans 12/14/20: No changes to the current plan 12/15/20: Encourage pt to trial IM Olanzapine. I spent _30 minutes with the patient and/or on the patient floor today, greater than?50% of which was spent counseling/coordinating care. Patient educated on: medication risk/benefits Informed Consent: understands and further education needed Reason for contiued inpatient stay Substantial Risk for: harm to self, harm to others, inability to function and rapid decompensation
[2020-12-15 18:00] VITALS: BP 130/66; PULSE 90; TEMP 36.9
[2020-12-16 06:00] VITALS: BP 108/58; PULSE 83; RESP 16; TEMP 36.7; O2SAT 100
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
[2020-12-16 21:25] VITALS: BP 123/70; PULSE 87; TEMP 36.3; O2SAT 98
[2020-12-16 22:31] LABS: Histamine Plasma <1.5 ng/mL (< OR = 1.8)
[2020-12-17 03:25] LABS: Zinc 51 mcg/dL (60-130)
--- NOTE | 2020-12-17 10:36 | P.PNPSI_ITS ---
Subjective Subjective Reason For Visit: Schizoaffective Disorder Diagnostics Vital Signs (24Hr): Vital Signs - 24 hr 12/16/20 21:25 Temperature 97.4 F Pulse Rate 87 Blood Pressure 123/70 Pulse Oximetry 98 Body Mass Index 29.2 Labs Results: 12/06/20 01:03 12/06/20 01:03 Labs: Laboratory Results - last 48 hr 12/11/20 12/12/20 12/12/20 22:23 08:35 08:35 Tryptase 3.8 Plasma Histamine <1.5 Zinc 51 L Medications Medications Current Medications Acetaminophen (Acetaminophen 325 Mg Tablet) 650 mg PO Q6H PRN PRN Reason: Headache/Pain Mild Scale (1-3) Al Hydroxide/Mg Hydroxide (Magnesium Hydrox/Alum Hydrox 30 Ml Oral.Susp) 30 ml PO Q6H PRN PRN Reason: Heartburn/Nausea Bupropion HCl (Bupropion Hcl Xl 300 Mg Tab.Er.24h) 300 mg PO DAILY [facility] Last Admin: 12/17/20 07:44 Dose: Not Given Documented by: Hydroxyzine HCl (Hydroxyzine Hcl 25 Mg Tablet) 25 mg PO BEDTIME PRN PRN Reason: Anxiety Magnesium Hydroxide (Milk Of Magnesia 30 Ml Oral.Susp) 30 ml PO DAILY PRN PRN Reason: Constipation Pt Own Med ( (Lansoprazole 30 Mg)) 1 each PO DAILY@30 [facility] Olanzapine (Olanzapine 7.5 Mg Tablet) 15 mg PO DAILY [facility] Last Admin: 12/17/20 07:44 Dose: Not Given Documented by: Omeprazole (Omeprazole 20 Mg Capsule.Dr) 20 mg PO DAILY@0630 [facility] Last Admin: 12/17/20 07:44 Dose: Not Given Documented by: Ondansetron HCl (Ondansetron Odt 4 Mg Tab.Rapdis) 4 mg TRANSLINGU Q8H PRN PRN Reason: Nausea Last Admin: 12/15/20 12:56 Dose: 4 mg Documented by: Pharmacy Consult (Consult Rx Perform Med Rec) 1 each MISCELLANE ONCE PRN PRN Reason: Consult order Trazodone HCl (Trazodone Hcl 50 Mg Tablet) 50 mg PO BEDTIME PRN PRN Reason: Insomnia Allergies Allergies Allergy/AdvReac Type Severity Reaction Status Date / Time metoclopramide [From Reglan] Allergy Muscle Verified 12/06/20 07:02 cramps haloperidol [From Haldol] AdvReac Severe Dystonia Verified 12/16/20 08:24 sucralfate [From Carafate] AdvReac Severe vomiting Verified 12/16/20 08:23 Assessment & Plan Assessment & Plan (1) Schizoaffective disorder, bipolar type: Status: Acute Code(s): F25.0 - Schizoaffective disorder, bipolar type (2) IBS (irritable bowel syndrome): Status: Acute Code(s): K58.9 - Irritable bowel syndrome without diarrhea Assessment and Plan: IMPRESSION: Pt is a 25 y.o. Female who carries a diagnosis of schizoaffective disorder. She has a hx of [facility] for paranoid delusional thought content and depression. Had OP services at [facility] but stopped taking medications and has been thus been decompensating. Crisis/ED reports family is afraid of patients aggressive behaviors, reports neglecting self care, not eating, not sleeping... Currently P t is refusing PO medications at this time, may be interested in IM zyprexa. Currently patient does not want male provider and effort is being made to see if she can be switched to female provider. Patient admitted for safety and medication management Plan: Patient signed CV; patient then signed 3 day notice Q 15 minutes checks for safety Will work on switching to female provider Patient refusing p.o. meds Patient may be open to taking Zyprexa intramuscularly Will obtain collateral from family 12/10/20: Collateral contact with [facility] MRI- MRCP negative on 10/08/20-Pt provided with a copy of this. Message left for Dr. Mart of [facility] [phone] to discuss GI plan of care and if pt needs a consult while admitted. Nutritional eval ordered Pt declines contact with family and providers TDN expires 12/11/20. Pt informed I will proceed with request for commitment and asked to reconsider remaining here so we may re-establish her medications safely with consultation from her GI team, which cannot all be accomplished by 12/11. She will consider. She has made no decision on meds yet. 12/11/20 Care discussed with pt's father Section VII filed. GI consult appreciated. Continue evaluation. 12/12/20 Continue eval Pt given information on IM Olanzapine for review. 12/13/20: No change to the above plans 12/14/20: No changes to the current plan 12/15/20: Encourage pt to trial IM Olanzapine. 12/16/20: Court date continued to Dec Dr. Gomez has suggested a trial of Lansoprazole 30 mg dissolvable which was ordered. I spent minutes with the patient and/or on the patient floor today, greater than?50% of which was spent counseling/coordinating care.
[2020-12-17 17:27] VITALS: BP 113/71; PULSE 95; RESP 16; TEMP 36.7; O2SAT 98
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
[2020-12-17] MEDS: OLANZapine 10 MG VIAL IM (19:52)
[2020-12-18] MEDS: OLANZapine 10 MG VIAL IM (10:21)
--- NOTE | 2020-12-18 13:42 | P.CNNE_ITS ---
History of Present Illness Data of Consult Service Date: 12/18/20 Primary Care Provider: Unknown Physician HPI Reason for consult: Abnormal EEG 25 years old woman with underlying she has of [place] a admitted on psychiatric hospital. Apparently she had an EEG done read by [facility] on December 05 that showed mild left posterior temporal slowing with no epileptiform discharges. There was no known history of seizure disorder. She had multiple psychiatric hospitalization and at this time she was in acute care for psychiatric symptoms. [facility] Past Medical History Medical History (Updated 12/18/20 @ 13:45 by Issac Tierney MD) IBS (irritable bowel syndrome) Schizoaffective disorder, bipolar type Schizophrenia Social History Social History Household Members: Family Housing: House Do you presently have visiting nurse or other home services: No Unable to assess alcohol history related to: Unknown Patient Tobacco Use Status: Former Tobacco user Tobacco use type: Cigarette Smoked in Last 30 Days: No e-Cigarette/Vaping Use: Never Used Patient Interested in Nicotine Replacement: No Patient Given Instructions on How to Stop Smoking: No Second Hand Smoke Exposure: No Use of substances other than those prescribed or required for medical reasons: Yes Substance Use Type: Marijuana Substance Use Frequency: Daily Last Used Substance: Just Prior to Admission Currently Displaying Signs/Symptoms of Drug Intoxication Withdrawal: No Any prior treatment program specific to substance use: No Advance Directives: No Advance Directives Information Provided: Yes Healthcare Proxy: No Guardian: No Do you have thoughts of harming others: None Do you have a plan to hurt others: No Plan Recently lost weight without trying: Yes How much weight loss: Unsure Eating poorly because of decreased appetite: Yes Nutrition screen score: 5 Nutrition Risks: Poor intake 0-25% >4 days Patient : No : No Poor oral hygiene: No service: No Meds Allergies Allergy/AdvReac Type Severity Reaction Status Date / Time metoclopramide [From Reglan] Allergy Muscle Verified 12/06/20 07:02 cramps haloperidol [From Haldol] AdvReac Severe Dystonia Verified 12/16/20 08:24 sucralfate [From Carafate] AdvReac Severe vomiting Verified 12/16/20 08:23 Active Medications: Current Medications Acetaminophen (Acetaminophen 325 Mg Tablet) 650 mg PO Q6H PRN PRN Reason: Headache/Pain Mild Scale (1-3) Al Hydroxide/Mg Hydroxide (Magnesium Hydrox/Alum Hydrox 30 Ml Oral.Susp) 30 ml PO Q6H PRN PRN Reason: Heartburn/Nausea Benztropine Mesylate (Benztropine Mesylate 1 Mg Tablet) 1 mg PO TID PRN PRN Reason: Extrapyramidal Effects Bupropion HCl (Bupropion Hcl Xl 300 Mg Tab.Er.24h) 300 mg PO DAILY [facility] Last Admin: 12/18/20 10:23 Dose: Not Given Documented by: Hydroxyzine HCl (Hydroxyzine Hcl 25 Mg Tablet) 25 mg PO BEDTIME PRN PRN Reason: Anxiety Magnesium Hydroxide (Milk Of Magnesia 30 Ml Oral.Susp) 30 ml PO DAILY PRN PRN Reason: Constipation Pt Own Med ( (Lansoprazole 30 Mg)) 1 each PO DAILY@0630 [facility] Last Admin: 12/18/20 10:23 Dose: Not Given Documented by: Olanzapine (Olanzapine 10 Mg Vial) 10 mg IM DAILY [facility] Last Admin: 12/18/20 10:21 Dose: 10 mg Documented by: Omeprazole (Omeprazole 20 Mg Capsule.Dr) 20 mg PO DAILY [facility] Last Admin: 12/18/20 10:23 Dose: Not Given Documented by: Ondansetron HCl (Ondansetron Odt 4 Mg Tab.Rapdis) 4 mg TRANSLINGU Q8H PRN PRN Reason: Nausea Last Admin: 12/15/20 12:56 Dose: 4 mg Documented by: Pharmacy Consult (Consult Rx Perform Med Rec) 1 each MISCELLANE ONCE PRN PRN Reason: Consult order Trazodone HCl (Trazodone Hcl 50 Mg Tablet) 50 mg PO BEDTIME PRN PRN Reason: Insomnia Home Medications Medication Instructions Recorded Confirmed Last Taken Type bupropion HCl 300 mg 24 hr tablet, 300 mg PO QAM 12/07/20 12/07/20 Unknown History extended release (Wellbutrin XL) olanzapine 15 mg tablet (Zyprexa) 15 mg PO DAILY 12/07/20 12/07/20 Unknown History Physical Exam Vital Signs: Vital Signs: Last Vital Signs Temp 98.0 F 12/17/20 17:27 Pulse 95 12/17/20 17:27 Resp 16 12/17/20 17:27 BP 113/71 12/17/20 17:27 Pulse Ox 98 12/17/20 17:27 Body Mass Index 29.2 Neuro: Other: She was alert and awake with normal spontaneity of speech fluency comprehension and anxious affect. Pupils were round reactive to light. Extraocular muscles are intact. Visual fletcher are full. Face was symmetrical. There was no focal weakness. Deep tendon reflexes were trace to absent with flexor plantars. Results Labs CBC & Chem 7: 12/06/20 01:03 12/06/20 01:03 Labs: An EEG at [facility] on December 05 read the [facility] revealed left posterior temporal slowing with no epileptic discharges. A noncontrast head CT 8 [facility] on November 13, according to report, did not reveal any significant abnormality. Assessment and Plan (1) Abnormal EEG: Status: Acute 25 years old woman with underlying diagnosis of she has a for any a and a recent abnormal EEG suggesting mild left temporal slowing. There was no clinical or EEG evidence of seizure disorder. Noncontrast head CT was okay. Examination was nonfocal. If she never had it before, I would recommend obtaini ng an MRI of brain with and without contrast to rule out any focal lesion explaining this abnormality. This type of abnormality could also be nonspecific. Procedures Date of Service Date of Service: 12/18/20
[2020-12-18 16:11] LABS: Transglutaminase Ab IgG <1.0 U/mL; Transglutaminase IgA <1.0 U/mL
--- NOTE | 2020-12-18 17:33 | HO.PSYCHPN ---
Subjective Subjective Date of Service: 12/18/20 Reason For Visit: Schizoaffective Disorder Interim History: Patient seen and discussed with team. Patient evaluated this morning and upon interview she reports im fine but also says everything is bothering me. Says I never feels safe, unable to fully articulate why she feels unsafe, attributes this to paranoia. Says her sleep is normal. Stressors include not liking the room she is in, was moved to room by RN station due to issues with roommate but pt says why did i have to move in here? Feels her roommate should have switched rooms, says the room she is in feels scary. Started olanzapine IM but upset that today the injection was brown and yellow, yesterday it was clear. Continues to c/o GI distress and says sublingual zofran did not help but she would be willing to re-trial it at a higher dose. Says she is somewhat eating. Mood is the same. Medication Compliance: Yes Side effects from medications: No Attending Groups: No Review of Systems Acute medical concerns: No Medical Review of Systems: unchanged Mental Status Exam Mental Status Exam Narrative: Patient Appearance:?Disheveled Patient Orientation:?Person, Place and Situation Level of Consciousness:?Awake and Alert Patient Behavior:?Guarded, Suspicious, Aggressive (verbally), Belligerent, Swearing (a lot), Anxious, Fearful, Resistive to Care, Avoidant, Distractible, Good Eye Contact and Impulsive Mood Description:?Labile and Angry Affect Description:?Labile Patient Cognition Impaired:?No Ability to Follow Directions:?Good Speech Pattern:?Clear, Perseverating, Spontaneous Speech, Rapid, Pressured and Includes Profanity Memory Description:?Episodic Impaired Hallucinations:?None (denies) Delusions:?Paranoid Ideation and Present Perceptual Disturbances:?Depersonalization and Derealization Thought Process:?Racing, Distracted and Evasive Thought Content:?positive for Racing, positive for Circumstantial, positive for Tangential, positive for Evasive, positive for Suicidal Ideation (denies) and positive for Homicidal Ideation (denies) Depressive Symptoms:?Increased Anxiety, Insomnia, Diff. Making Decisions, Increased Irritability, Difficulty Sleeping, Changes in Appetite, Significant Weight Loss, Loss of Int. in Activity, Hopelessness, Isolating-Friends/Family, Unhappiness, Loss of Energy and Difficulty Concentrating Abnormal Motor Activity Signs and Symptoms:?Agitation and Restlessness Judgement:?Poor Diagnostics Vital Signs (24Hr): Body Mass Index 29.2 Labs Results: 12/06/20 01:03 12/06/20 01:03 Labs: Laboratory Results - last 48 hr 12/11/20 12/11/20 12/12/20 22:23 22:23 08:35 Plasma Histamine <1.5 Zinc 51 L Tiss Transglutamin IgG <1.0 Tiss Transglutamin IgA <1.0 Medications Medications Current Medications Acetaminophen (Acetaminophen 325 Mg Tablet) 650 mg PO Q6H PRN PRN Reason: Headache/Pain Mild Scale (1-3) Al Hydroxide/Mg Hydroxide (Magnesium Hydrox/Alum Hydrox 30 Ml Oral.Susp) 30 ml PO Q6H PRN PRN Reason: Heartburn/Nausea Benztropine Mesylate (Benztropine Mesylate 1 Mg Tablet) 1 mg PO TID PRN PRN Reason: Extrapyramidal Effects Bupropion HCl (Bupropion Hcl Xl 300 Mg Tab.Er.24h) 300 mg PO DAILY [facility] Last Admin: 12/18/20 10:23 Dose: Not Given Documented by: Hydroxyzine HCl (Hydroxyzine Hcl 25 Mg Tablet) 25 mg PO BEDTIME PRN PRN Reason: Anxiety Magnesium Hydroxide (Milk Of Magnesia 30 Ml Oral.Susp) 30 ml PO DAILY PRN PRN Reason: Constipation Pt Own Med ( (Lansoprazole 30 Mg)) 1 each PO DAILY@0630 [facility] Last Admin: 12/18/20 10:23 Dose: Not Given Documented by: Olanzapine (Olanzapine 10 Mg Vial) 10 mg IM DAILY [facility] Last Admin: 12/18/20 10:21 Dose: 10 mg Documented by: Omeprazole (Omeprazole 20 Mg Capsule.Dr) 20 mg PO DAILY [facility] Last Admin: 12/18/20 10:23 Dose: Not Given Documented by: Ondansetron HCl (Ondansetron Odt 4 Mg Tab.Rapdis) 4 mg TRANSLINGU Q8H PRN PRN Reason: Nausea Last Admin: 12/15/20 12:56 Dose: 4 mg Documented by: Pharmacy Consult (Consult Rx Perform Med Rec) 1 each MISCELLANE ONCE PRN PRN Reason: Consult order Trazodone HCl (Trazodone Hcl 50 Mg Tablet) 50 mg PO BEDTIME PRN PRN Reason: Insomnia Allergies Allergies Allergy/AdvReac Type Severity Reaction Status Date / Time metoclopramide [From Reglan] Allergy Muscle Verified 12/06/20 07:02 cramps haloperidol [From Haldol] AdvReac Severe Dystonia Verified 12/16/20 08:24 sucralfate [From Carafate] AdvReac Severe vomiting Verified 12/16/20 08:23 Assessment & Plan Assessment & Plan (1) Abnormal EEG: Status: Acute Code(s): R94.01 - Abnormal electroencephalogram [EEG] (2) Schizoaffective disorder, bipolar type: Status: Acute Code(s): F25.0 - Schizoaffective disorder, bipolar type (3) IBS (irritable bowel syndrome): Status: Acute Code(s): K58.9 - Irritable bowel syndrome without diarrhea Assessment and Plan: IMPRESSION: Pt is a 25 y.o. Female who carries a diagnosis of schizoaffective disorder. She has a hx of [facility] for paranoid delusional thought content and depression. Had OP services at [facility] but stopped taking medications and has been thus been decompensating. Crisis/ED reports family is afraid of patients aggressive behaviors, reports neglecting self care, not eating, not sleeping... Currently Pt is refusing PO medications at this time, may be interested in IM zyprexa.? Currently patient does not want male provider and effort is being made to see if she can be switched to female provider.? Patient admitted for safety and medication management Plan: Patient signed CV; patient then signed 3 day notice Q 15 minutes checks for safety Will work on switching to female provider Patient refusing p.o. meds Patient may be open to taking Zyprexa intramuscularly Will obtain collateral from family 12/10/20: Collateral contact with [facility] MRI- MRCP negative on 10/08/20-Pt provided with a copy of this. Message left for Dr. Mart of [facility] [phone] to discuss GI plan of care and if pt needs a consult while admitted. Nutritional eval ordered Pt declines contact with family and providers TDN expires 12/11/20. Pt informed I will proceed with request for commitment and asked to reconsider remaining here so we may re-establish her medications safely with consultation from her GI team, which cannot all be accomplished by 12/11. She will consider. She has made no decision on meds yet. 12/11/20 Care discussed with pt's father Section VII filed. GI consult appreciated. Continue evaluation. 12/12/20 Continue eval Pt given information on IM Olanzapine for review. 12/13/20: No change to the above plans 12/14/20: No changes to the current plan 12/15/20: Encourage pt to trial IM Olanzapine. 12/16/20:? Court date continued to Dec ? Dr. Gomez has suggested a trial of Lansoprazole 30 mg dissolvable which was ordered. 12/17/20: Offer Lansoprazole when available, if effective PO atypicals ? Pt will accept IM Haldol-however, 3 reports indicated hx of significant dystonic reaction (father-a physician, [facility], and psychiatrist-[facility] records unable to be accessed). Continue to offer Olanzapine. 12/18/20: Pt has had two doses of IM olanzapine, tolerating it well. Continues to present with paranoia, internally preoccupied, irritable. She is willing to trial increased sublingual zofran to 8 mg BID PRN for continued GI distress. Had neuro consult, much appreciated, recent abnormal EEG suggesting mild left temporal slowing. There was no clinical or EEG evidence of seizure disorder.? Noncontrast head CT was okay.? Examination was nonfocal.?Dr. Vasquez recommend obtaining an MRI of brain with and without contrast to rule out any focal lesion explaining this abnormality. This type of abnormality could also be nonspecific. I spent minutes with the patient and/or on the patient floor today, greater than?50% of which was spent counseling/coordinating care. Reason for contiued inpatient stay Substantial Risk for: harm to self, inability to function, rapid decompensation and med/psych decompensation
[2020-12-18 18:00] VITALS: BP 111/77; PULSE 80; TEMP 36.6
[2020-12-19] MEDS: Ondansetron ODT 4 MG TAB.RAPDIS 8 MG TRANSLINGU (08:36)
[2020-12-19] MEDS: OLANZapine 10 MG VIAL IM (08:37)
--- NOTE | 2020-12-19 14:16 | P.PNPSI_ITS ---
Subjective Subjective Date of Service: 12/19/20 Reason For Visit: Schizoaffective Disorder Subjective Notes: Section 7 Healthcare Proxy: No Guardianship: No Medical Problems Affecting Mental Status: No Interim History: JOSSY completed 12/18/20. Met with pt who is caustic, verbally aggressive, accusatory, paranoid. Review of neuro eval and recommendation for MRI. Pt declines MRI at this time. Pt initiated Lansoprazole this a.m. When asked for her feedback thus far- well, I am not vomiting am I. Continuation of request on 12/17-pt wanting a print out of her meds from [facility]. Call to Noah of [facility] [phone] who reports they will not fax a list of prescriptions filled however will discuss this with pt via phone if she calls in-information given. Review of nutrition consult completed 12/09. Pt asks for another consult. When asked how Olanzpine is working she responds It does not w ork and like I told you I did not get the D word thing (dystonia). Denies feeling overmedicated at the current time and no sx of appearing overmedicated. Medication Compliance: Yes Side effects from medications: No Attending Groups: No Review of Systems Acute medical concerns: No Medical Review of Systems: unchanged Review of Systems Gastrointestinal: Reports nausea Reports behavioral changes Psychiatric: Reports anxiety, Reports behavioral changes, Reports change in appetite, Reports depression, Reports difficulty concentrating, Reports irritability, Reports anhedonia, Reports paranoia and Reports homicidal ideation (family found a large knife in pt's room at home while cleaning) Mental Status Exam Mental Status Exam Narrative: Patient Appearance:?Disheveled Patient Orientation:?Person, Place and Situation Level of Consciousness:?Awake and Alert Patient Behavior:?Guarded, Suspicious, Aggressive (verbally), Belligerent, Swearing (a lot), Anxious, Fearful, Resistive to Care, Avoidant, Distractible, Good Eye Contact and Impulsive Patient Appearance: Disheveled and Malodorous Patient Orientation: Person, Place and Situation Level of Consciousness: Alert Patient Behavior: Guarded, Talkative, Suspicious, Aggressive, Restless, Belligerent, Resistive to Care, Avoidant, Distractible, Isolative, Good Eye Contact and Impulsive Mood Description: Labile and Angry Affect Description: Labile and Angry Patient Cognition Impaired: Yes Ability to Follow Directions: Fair Speech Pattern: Spontaneous Speech, Rapid, Excessive and Loud Memory Description: Remote Impaired and Episodic Impaired Hallucinations: None Delusions: Paranoid Ideation and Present Thought Process: Racing and Evasive Thought Content: positive for Tangential and positive for Homicidal Ideation Depressive Symptoms: Increased Irritability Abnormal Motor Activity Signs and Symptoms: Aggression, Agitation and Restlessness Judgement: Poor Diagnostics Vital Signs (24Hr): Vital Signs - 24 hr 12/18/20 18:00 Temperature 97.9 F Pulse Rate 80 Blood Pressure 111/77 Body Mass Index 29.2 Labs Results: 12/06/20 01:03 12/06/20 01:03 Labs: Laboratory Results - last 48 hr 12/11/20 12/12/20 22:23 08:35 RAST Allergens SEE NOTE Tiss Transglutamin IgG <1.0 Tiss Transglutamin IgA <1.0 Medications Medications Current Medications Acetaminophen (Acetaminophen 325 Mg Tablet) 650 mg PO Q6H PRN PRN Reason: Headache/Pain Mild Scale (1-3) Al Hydroxide/Mg Hydroxide (Magnesium Hydrox/Alum Hydrox 30 Ml Oral.Susp) 30 ml PO Q6H PRN PRN Reason: Heartburn/Nausea Benztropine Mesylate (Benztropine Mesylate 1 Mg Tablet) 1 mg PO TID PRN PRN Reason: Extrapyramidal Effects Hydroxyzine HCl (Hydroxyzine Hcl 25 Mg Tablet) 25 mg PO BEDTIME PRN PRN Reason: Anxiety Magnesium Hydroxide (Milk Of Magnesia 30 Ml Oral.Susp) 30 ml PO DAILY PRN PRN Reason: Constipation Pt Own Med ( (Lansoprazole 30 Mg)) 1 each PO DAILY@0630 [facility] Last Admin: 12/19/20 08:36 Dose: 1 each Documented by: Olanzapine (Olanzapine 10 Mg Vial) 10 mg IM DAILY [facility] Last Admin: 12/19/20 08:37 Dose: 10 mg Documented by: Ondansetron HCl (Ondansetron Odt 4 Mg Tab.Rapdis) 8 mg TRANSLINGU Q8H PRN PRN Reason: Nausea Last Admin: 12/19/20 08:36 Dose: 8 mg Documented by: Pharmacy Consult (Consult Rx Perform Med Rec) 1 each MISCELLANE ONCE PRN PRN Reason: Consult order Trazodone HCl (Trazodone Hcl 50 Mg Tablet) 50 mg PO BEDTIME PRN PRN Reason: Insomnia Allergies Allergies Allergy/AdvReac Type Severity Reaction Status Date / Time metoclopramide [From Reglan] Allergy Muscle Verified 12/06/20 07:02 cramps haloperidol [From Haldol] AdvReac Severe Dystonia Verified 12/16/20 08:24 sucralfate [From Carafate] AdvReac Severe vomiting Verified 12/16/20 08:23 Assessment & Plan Assessment & Plan (1) Abnormal EEG: Status: Acute Code(s): R94.01 - Abnormal electroencephalogram [EEG] (2) Schizoaffective disorder, bipolar type: Status: Acute Code(s): F25.0 - Schizoaffective disorder, bipolar type (3) IBS (irritable bowel syndrome): Status: Acute Code(s): K58.9 - Irritable bowel syndrome without diarrhea Assessment and Plan: IMPRESSION: Pt is a 25 y.o. Female who carries a diagnosis of schizoaffective disorder. She has a hx of [facility] for paranoid delusional thought content and depression. Had OP services at [facility] but stopped taking medications and has been thus been decompensating. Crisis/ED reports family is afraid of patients aggressive behaviors, reports neglecting self care, not eating, not sleeping... Currently Pt is refusing PO medications at this time, may be interested in IM zyprexa.? Currently patient does not want male provider and effort is being made to see if she can be switched to female provider.? Patient admitted for safety and medication management Plan: Patient signed CV; patient then signed 3 day notice Q 15 minutes checks for safety Will work on switching to female provider Patient refusing p.o. meds Patient may be open to taking Zyprexa intramuscularly Will obtain collateral from family 12/10/20: Collateral contact with [facility] MRI- MRCP negative on 10/08/20-Pt provided with a copy of this. Message left for Dr. Mart of [facility] [phone] to discuss GI plan of care and if pt needs a consult while admitted. Nutritional eval ordered Pt declines contact with family and providers TDN expires 12/11/20. Pt informed I will proceed with request for commitment and asked to reconsider remaining here so we may re-establish her medications safely with consultation from her GI team, which cannot all be accomplished by 12/11. She will consider. She has made no decision on meds yet. 12/11/20 Care discussed with pt's father Section VII filed. GI consult appreciated. Continue evaluation. 12/12/20 Continue eval Pt given information on IM Olanzapine for review. 12/13/20: No change to the above plans 12/14/20: No changes to the current plan 12/15/20: Encourage pt to trial IM Olanzapine. 12/16/20:? Court date continued to Dec ? Dr. Gomez has suggested a trial of Lansoprazole 30 mg dissolvable which was ordered. 12/17/20: Offer Lansoprazole when available, if effective PO atypicals ? Pt will accept IM Haldol-however, 3 reports indicated hx of significant dystonic reaction (father-a physician, [facility], and psychiatrist-[facility] records unable to be accessed). Continue to offer Olanzapine. 12/18/20: Pt has had two doses of IM olanzapine, tolerating it well. Continues to present with paranoia, internally preoccupied, irritable. She is willing to trial increased sublingual zofran to 8 mg BID PRN for continued GI distress. Had neuro consult, much appreciated, recent abnormal EEG suggesting mild left temporal slowing. There was no clinical or EEG evidence of seizure disorder.? Noncontrast head CT was okay.? Examination was nonfocal.?Dr. Vasquez recommend obtaining an MRI of brain with and without contrast to rule out any focal lesion explaining this abnormality. This type of abnormality could also be nonspecific. 12/19/20 Pt has declined MRI Lansoprazole 30 mg initiated and tolerate Repeat nutrition consult ordered. I spent ___25___ minutes with the patient and/or on the patient floor today, greater than?50% of which was spent counseling/coordinating care. Patient educated on: medication risk/benefits, therapeutic strategies and medical condition Informed Consent: further education needed Reason for contiued inpatient stay Substantial Risk for: harm to self, harm to others, inability to function, rapid decompensation and med/psych decompensation
--- NOTE | 2020-12-19 14:33 | MHC.CLN ---
RE: CONSULT FOR N/V MEDS: PT STARTED ON LANSOPRAZOLE-PT REPORTS MEDS HAVE NOT HELPED; REMAINS THE SAME ENN: [id number], 62G PROTEIN, 1860CC H20 DIET RX: REGULAR-APPROPRIATE PT REPORTED FEELING NAUSEOUS MAIN CAUSE OF NOT TAKING PO DISCUSSED WITH PT FOODS TO ASSIST IN SYMPTOM MANAGEMENT I.E. BROTH, CRAX, G'DAYANA, TOAST OFFERED PT BLAND DIET AND/OR CLEAR LIQUID DIET PT DECLINED BOTH TYPES OF DIETS STATED, I WON'T EAT THAT ANYWAY EXPLAINED PROCESS FOR FILLING OUT MENU WITH [employer] FROM [employer]; PT CAN ORDER FOOD ITEMS NOTED ABOVE WITH ANY MEAL IF NEEDED PT REFUSED TO DISCUSS WT OR WT LOSS RELATED TO NAUSEA. PT APPEARS WELL NOURISHED [facility] TO ASSIST IN FILLING OUT MENU MONITOR PO INTAKE AND WEIGHT CLOSELY
[2020-12-19 18:00] VITALS: BP 108/74; PULSE 85; RESP 16; TEMP 36.5; O2SAT 99
[2020-12-20 06:00] VITALS: BP 120/81; PULSE 109; RESP 18; TEMP 36.2; O2SAT 100
--- NOTE | 2020-12-20 09:19 | P.PNPSI_ITS ---
Subjective Subjective Date of Service: 12/20/20 Reason For Visit: Schizoaffective Disorder Interim History: JOSSY completed 12/18/20. 12/19/20:Met with pt who is caustic, verbally aggressive, accusatory, paranoid. Review of neuro eval and recommendation for MRI. Pt declines MRI at this time. Pt initiated Lansoprazole this a.m. When asked for her feedback thus far- well, I am not vomiting am I. Continuation of request on 12/17-pt wanting a print out of her meds from [facility]. Call to Noah of [facility] [phone] who reports they will not fax a list of prescriptions filled however will discuss this with pt via phone if she calls in-information given. Review of nutrition consult completed 12/09. Pt asks for another consult. When asked how Olanzpine is working she responds It does not work and like I told you I did not get the D word thing (dystonia). Denies feeling overmedicated at the current time and no sx of appearing overmedicated. 12/20: Unkempt/malodorous. Minimal engagement. Accepting IM OLZ Review of Systems Review of Systems Yes Unobtainable due to mental status and Other (unoperative) Constitutional: Reports poor appetite Reports odynophagia Gastrointestinal: Reports abdominal pain, Reports early satiety, Reports dyspepsia, Reports nausea, Reports odynophagia, Reports vomiting and Reports other (unable to take her medicines.) Reports behavioral changes Psychiatric: Reports abnormal sleep pattern, Reports anxiety, Reports behavioral changes, Reports change in appetite, Reports depression, Reports difficulty concentrating, Reports hopelessness, Reports irritability, Reports anhedonia, Reports mood swings, Reports paranoia, Reports homicidal ideation (family found a large knife in pt's room at home while cleaning) and Reports other (reportedly aggressive to her family) Mental Status Exam Mental Status Exam Narrative: Patient Appearance:?Disheveled Patient Orientation:?Person, Place and Situation Level of Consciousness:?Awake and Alert Patient Behavior:?Guarded, Suspicious, Aggressive (verbally), Belligerent, Swearing (a lot), Anxious, Fearful, Resistive to Care, Avoidant, Distractible, Good Eye Contact and Impulsive Patient Appearance: Disheveled and Malodorous Patient Orientation: Person, Place and Situation Level of Consciousness: Alert Patient Behavior: Guarded, Talkative, Suspicious, Aggressive, Restless, Lira igerent, Resistive to Care, Avoidant, Distractible, Isolative, Good Eye Contact and Impulsive Mood Description: Labile and Angry Affect Description: Labile and Angry Patient Cognition Impaired: Yes Ability to Follow Directions: Fair Speech Pattern: Spontaneous Speech, Rapid, Excessive and Loud Memory Description: Remote Impaired and Episodic Impaired Diagnostics Vital Signs (24Hr): Vital Signs - 24 hr 12/19/20 18:00 12/20/20 06:00 Temperature 97.7 F 97.1 F Pulse Rate 85 109 H Respiratory Rate 16 18 Blood Pressure 108/74 120/81 Pulse Oximetry 99 100 Body Mass Index 29.2 Labs Results: 12/06/20 01:03 12/06/20 01:03 Labs: Laboratory Results - last 48 hr 12/11/20 12/12/20 22:23 08:35 RAST Allergens SEE NOTE Tiss Transglutamin IgG <1.0 Tiss Transglutamin IgA <1.0 Medications Medications Current Medications Acetaminophen (Acetaminophen 325 Mg Tablet) 650 mg PO Q6H PRN PRN Reason: Headache/Pain Mild Scale (1-3) Al Hydroxide/Mg Hydroxide (Magnesium Hydrox/Alum Hydrox 30 Ml Oral.Susp) 30 ml PO Q6H PRN PRN Reason: Heartburn/Nausea Benztropine Mesylate (Benztropine Mesylate 1 Mg Tablet) 1 mg PO TID PRN PRN Reason: Extrapyramidal Effects Hydroxyzine HCl (Hydroxyzine Hcl 25 Mg Tablet) 25 mg PO BEDTIME PRN PRN Reason: Anxiety Magnesium Hydroxide (Milk Of Magnesia 30 Ml Oral.Susp) 30 ml PO DAILY PRN PRN Reason: Constipation Pt Own Med ( (Lansoprazole 30 Mg)) 1 each PO DAILY@0630 [facility] Last Admin: 12/20/20 07:23 Dose: 1 each Documented by: Olanzapine (Olanzapine 10 Mg Vial) 10 mg IM DAILY [facility] Last Admin: 12/19/20 08:37 Dose: 10 mg Documented by: Ondansetron HCl (Ondansetron Odt 4 Mg Tab.Rapdis) 8 mg TRANSLINGU Q8H PRN PRN Reason: Nausea Last Admin: 12/19/20 08:36 Dose: 8 mg Documented by: Pharmacy Consult (Consult Rx Perform Med Rec) 1 each MISCELLANE ONCE PRN PRN Reason: Consult order Trazodone HCl (Trazodone Hcl 50 Mg Tablet) 50 mg PO BEDTIME PRN PRN Reason: Insomnia Allergies Allergies Allergy/AdvReac Type Severity Reaction Status Date / Time metoclopramide [From Reglan] Allergy Muscle Verified 12/06/20 07:02 cramps haloperidol [From Haldol] AdvReac Severe Dystonia Verified 12/16/20 08:24 sucralfate [From Carafate] AdvReac Severe vomiting Verified 12/16/20 08:23 Assessment & Plan Assessment & Plan (1) Abnormal EEG: Status: Acute Code(s): R94.01 - Abnormal electroencephalogram [EEG] (2) Schizoaffective disorder, bipolar type: Status: Acute Code(s): F25.0 - Schizoaffective disorder, bipolar type (3) IBS (irritable bowel syndrome): Status: Acute Code(s): K58.9 - Irritable bowel syndrome without diarrhea Assessment and Plan: IMPRESSION: Pt is a 25 y.o. Female who carries a diagnosis of schizoaffective disorder. She has a hx of [facility] for paranoid delusional thought content and depression. Had OP services at [facility] but stopped taking medications and has been thus been decompensating. Crisis/ED reports family is afraid of patients aggressive behaviors, reports neglecting self care, not eating, not sleeping... Currently Pt is refusing PO medications at this time, may be interested in IM zyprexa.? C urrently patient does not want male provider and effort is being made to see if she can be switched to female provider.? Patient admitted for safety and medication management Plan: Patient signed CV; patient then signed 3 day notice Q 15 minutes checks for safety Will work on switching to female provider Patient refusing p.o. meds Patient may be open to taking Zyprexa intramuscularly Will obtain collateral from family 12/10/20: Collateral contact with [facility] MRI- MRCP negative on 10/08/20-Pt provided with a copy of this. Message left for Dr. Mart of [facility] [phone] to discuss GI plan of care and if pt needs a consult while admitted. Nutritional eval ordered Pt declines contact with family and providers TDN expires 12/11/20. Pt informed I will proceed with request for commitment and asked to reconsider remaining here so we may re-establish her medications safely with consultation from her GI team, which cannot all be accomplished by 12/11. She will consider. She has made no decision on meds yet. 12/11/20 Care discussed with pt's father Section VII filed. GI consult appreciated. Continue evaluation. 12/12/20 Continue eval Pt given information on IM Olanzapine for review. 12/13/20: No change to the above plans 12/14/20: No changes to the current plan 12/15/20: Encourage pt to trial IM Olanzapine. 12/16/20:? Court date continued to Dec ? Dr. oGmez has suggested a trial of Lansoprazole 30 mg dissolvable which was ordered. 12/17/20: Offer Lansoprazole when available, if effective PO atypicals ? Pt will accept IM Haldol-however, 3 reports indicated hx of significant dystonic reaction (father-a physician, [employer] [facility], and psychiatrist-[facility] records unable to be accessed). Continue to offer Olanzapine. 12/18/20: Pt has had two doses of IM olanzapine, tolerating it well. Continues to present with paranoia, internally preoccupied, irritable. She is willing to trial increased sublingual zofran to 8 mg BID PRN for continued GI distress. Had neuro consult, much appreciated, recent abnormal EEG suggesting mild left temporal slowing. There was no clinical or EEG evidence of seizure disorder.? Noncontrast head CT was okay.? Examination was nonfocal.?Dr. Vasquez recommend obtaining an MRI of brain with and without contrast to rule out any focal lesion explaining this abnormality. This type of abnormality could also be nonspecific. 12/19/20 Pt has declined MRI Lansoprazole 30 mg initiated and tolerate Repeat nutrition consult ordered. 12/20: Ct plan w IM OLZ. I spent minutes with the patient and/or on the patient floor today, greater than?50% of which was spent counseling/coordinating care. Reason for contiued inpatient stay Substantial Risk for: rapid decompensation
[2020-12-20] MEDS: OLANZapine 10 MG VIAL IM (09:35)
[2020-12-20 18:00] VITALS: BP 115/71; PULSE 95; TEMP 36.6
[2020-12-21 06:00] VITALS: BP 112/73; PULSE 93; TEMP 36.4; O2SAT 100
--- NOTE | 2020-12-21 08:38 | HO.PSYCHPN ---
Subjective Subjective Date of Service: 12/21/20 Reason For Visit: Schizoaffective Disorder Interim History: JOSSY completed 12/18/20. 12/19/20:Met with pt who is caustic, verbally aggressive, accusatory, paranoid. Review of neuro eval and recommendation for MRI. Pt declines MRI at this time. Pt initiated Lansoprazole this a.m. When asked for her feedback thus far- well, I am not vomiting am I. Continuation of request on 12/17-pt wanting a print out of her meds from [facility]. Call to Noah of [facility] [phone] who reports they will not fax a list of prescriptions filled however will discuss this with pt via phone if she calls in-information given. Review of nutrition consult completed 12/09. Pt asks for another consult. When asked how Olanzpine is working she responds It does not work and like I told you I did not get the D word thing (dystonia). Denies feeling overmedicated at the current time and no sx of appearing overmedicated. 12/20: Unkempt/malodorous. Minimal engagement. Accepting IM OLZ 12/21: Irritable/hostile/Shrugs shoulders and rolls eyes at Qs. Accepting IMs. Unkempt. Refused shower despite staff encouragement Medication Compliance: Intermittent Side effects from medications: No Review of Systems Review of Systems Yes Unobtainable due to mental status and Other (unoperative) Constitutional: Reports poor appetite Reports odynophagia Gastrointestinal: Reports abdominal pain, Reports early satiety, Reports dyspepsia, Reports nausea, Reports odynophagia, Reports vomiting and Reports other (unable to take her medicines.) Reports behavioral changes Psychiatric: Reports abnormal sleep pattern, Reports anxiety, Reports behavioral changes, Reports change in appetite, Reports depression, Reports difficulty concentrating, Reports hopelessness, Reports irritability, Reports anhedonia, Reports mood swings, Reports paranoia, Reports homicidal ideation (family found a large knife in pt's room at home while cleaning) and Reports other (reportedly aggressive to her family) Mental Status Exam Mental Status Exam Narrative: Patient Appearance:?Disheveled Patient Orientation:?Person, Place and Situation Level of Consciousness:?Awake and Alert Patient Behavior:?Guarded, Suspicious, Aggressive (verbally), Belligerent, Swearing (a lot), Anxious, Fearful, Resistive to Care, Avoidant, Distractible, Good Eye Contact and Impulsive Patient Appearance: Disheveled and Malodorous Patient Orientation: Person, Place and Situation Level of Consciousness: Alert Patient Behavior: Guarded, Talkative, Suspicious, Aggressive, Restless, Belligerent, Resistive to Care, Avoidant, Distractible, Isolative, Good Eye Contact and Impulsive Mood Description: Labile and Angry Affect Description: Labile and Angry Patient Cognition Impaired: Yes Ability to Follow Directions: Fair Speech Pattern: Spontaneous Speech, Rapid, Excessive and Loud Memory Description: Remote Impaired and Episodic Impaired Diagnostics Vital Signs (24Hr): Vital Signs - 24 hr 12/20/20 18:00 12/21/20 06:00 Temperature 98 F 97.5 F Pulse Rate 95 93 Blood Pressure 115/71 112/73 Pulse Oximetry 100 Body Mass Index 29.2 Labs Results: 12/06/20 01:03 12/06/20 01:03 Labs: Laboratory Results - last 48 hr 12/12/20 08:35 RAST Allergens SEE NOTE Medications Medications Current Medications Acetaminophen (Acetaminophen 325 Mg Tablet) 650 mg PO Q6H PRN PRN Reason: Headache/Pain Mild Scale (1-3) Al Hydroxide/Mg Hydroxide (Magnesium Hydrox/Alum Hydrox 30 Ml Oral.Susp) 30 ml PO Q6H PRN PRN Reason: Heartburn/Nausea Benztropine Mesylate (Benztropine Mesylate 1 Mg Tablet) 1 mg PO TID PRN PRN Reason: Extrapyramidal Effects Hydroxyzine HCl (Hydroxyzine Hcl 25 Mg Tablet) 25 mg PO BEDTIME PRN PRN Reason: Anxiety Magnesium Hydroxide (Milk Of Magnesia 30 Ml Oral.Susp) 30 ml PO DAILY PRN PRN Reason: Constipation Pt Own Med ( (Lansoprazole 30 Mg)) 1 each PO DAILY@0630 [facility] Last Admin: 12/21/20 06:13 Dose: 1 each Documented by: Olanzapine (Olanzapine 10 Mg Vial) 10 mg IM DAILY [facility] Last Admin: 12/20/20 09:35 Dose: 10 mg Documented by: Ondansetron HCl (Ondansetron Odt 4 Mg Tab.Rapdis) 8 mg TRANSLINGU Q8H PRN PRN Reason: Nausea Last Admin: 12/19/20 08:36 Dose: 8 mg Documented by: Pharmacy Consult (Consult Rx Perform Med Rec) 1 each MISCELLANE ONCE PRN PRN Reason: Consult order Trazodone HCl (Trazodone Hcl 50 Mg Tablet) 50 mg PO BEDTIME PRN PRN Reason: Insomnia Allergies Allergies Allergy/AdvReac Type Severity Reaction Status Date / Time metoclopramide [From Reglan] Allergy Muscle Verified 12/06/20 07:02 cramps haloperidol [From Haldol] AdvReac Severe Dystonia Verified 12/16/20 08:24 sucralfate [From Carafate] AdvReac Severe vomiting Verified 12/16/20 08:23 Assessment & Plan Assessment & Plan (1) Abnormal EEG: Status: Acute Code(s): R94.01 - Abnormal electroencephalogram [EEG] (2) Schizoaffective disorder, bipolar type: Status: Acute Code(s): F25.0 - Schizoaffective disorder, bipolar type (3) IBS (irritable bowel syndrome): Status: Acute Code(s): K58.9 - Irritable bowel syndrome without diarrhea Assessment and Plan: IMPRESSION: Pt is a 25 y.o. Female who carries a diagnosis of schizoaffective disorder. She has a hx of [facility] for paranoid delusional thought content and depression. Had OP services at [facility] but stopped taking medications and has been thus been decompensating. Crisis/ED reports family is afraid of patients aggressive behaviors, reports neglecting self care, not eating, not sleeping... Currently Pt is refusing PO medications at this time, may be interested in IM zyprexa.? Currently patient does not want male provider and effort is being made to see if she can be switched to female provider.? Patient admitted for safety and medication management Plan: Patient signed CV; patient then signed 3 day notice Q 15 minutes checks for safety Will work on switching to female provider Patient refusing p.o. meds Patient may be open to taking Zyprexa intramuscularly Will obtain collateral from family 12/10/20: Collateral contact with [facility] MRI- MRCP negative on 10/08/20-Pt provided with a copy of this. Message left for Dr. Mart of [facility] [phone] to discuss GI plan of care and if pt needs a consult while admitted. Nutritional eval ordered Pt declines contact with family and providers TDN expires 12/11/20. Pt informed I will proceed with request for commitment and asked to reconsider remaining here so we may re-establish her medications safely with consultation from her GI team, which cannot all be accomplished by 12/11. She will consider. She has made no decision on meds yet. 12/11/20 Care discussed with pt's father Section VII filed. GI consult appreciated. Continue evaluation. 12/12/20 Continue eval Pt given information on IM Olanzapine for review. 12/13/20: No change to the above plans 12/14/20: No changes to the current plan 12/15/20: Encourage pt to trial IM Olanzapine. 12/16/20:? Court date continued to Dec ? Dr. Gomez has suggested a trial of Lansoprazole 30 mg dissolvable which was ordered. 12/17/20: Offer Lansoprazole when available, if effective PO atypicals ? Pt will accept IM Haldol-however, 3 reports indicated hx of significant dystonic reaction (father-a physician, [employer] [facility], and psychiatrist-[facility] records unable to be accessed). Continue to offer Olanzapine. 12/18/20: Pt has had two doses of IM olanzapine, tolerating it well. Continues to present with paranoia, internally preoccupied, irritable. She is willing to trial increased sublingual zofran to 8 mg BID PRN for continued GI distress. Had neuro consult, much appreciated, recent abnormal EEG suggesting mild left temporal slowing. There was no clinical or EEG evidence of seizure disorder.? Noncontrast head CT was okay.? Examination was nonfocal.?Dr. Vasquez recommend obtaining an MRI of brain with and without contrast to rule out any focal lesion explaining this abnormality. This type of abnormality could also be nonspecific. 12/19/20 Pt has declined MRI Lansoprazole 30 mg initiated and tolerate Repeat nutrition consult ordered. 12/21; Ct plan I spent minutes with the patient and/or on the patient floor today, greater than?50% of which was spent counseling/coordinating care. Reason for contiued inpatient stay Substantial Risk for: rapid decompensation
[2020-12-21] MEDS: OLANZapine 10 MG VIAL IM (09:38)
[2020-12-21 18:00] VITALS: BP 100/68; PULSE 95; TEMP 36.6
[2020-12-22 06:00] VITALS: BP 101/56; PULSE 70; RESP 16; TEMP 36.6; O2SAT 98
[2020-12-22] MEDS: OLANZapine 10 MG VIAL IM (09:40)
--- NOTE | 2020-12-22 12:18 | P.PNPSI_ITS ---
Subjective Subjective Date of Service: 12/22/20 Reason For Visit: Schizoaffective Disorder Subjective Notes: Section 7 Healthcare Proxy: No Guardianship: No Medical Problems Affecting Mental Status: Yes Interim History: Pt reports GI distress and inability to take medications or food. Lansoprazole 30 mg accepted x 3 days-refused today. Team reports pt able to eat over the weekend. Some increased interaction with team today-less caustic, some increased interaction, more visable in milieu. Met with transactional attorney. Continues with anger and verbally caustic stance with tw. Informed of calls received from parents and information they have given today. Pt angry, accusatory that someone brought in personal items from home and brought them to the pod when she has refused visitors. When asked for more detail, pt left the room precipitously, declining to discuss. Message received from pt's mother later in the morning stating she had left items she thought would be a comfort to pt. Pt informed of this information without response. Attempted to discuss ongoing treatment plan with pt-she is unwilling to do this. Medication Compliance: Intermittent Side effects from medications: No Attending Groups: No Review of Systems Acute medical concerns: Yes GI distress. Not accepting of lansoprazole today. Medical Review of Systems: unchanged Review of Systems Reports behavioral changes Psychiatric: Reports behavioral changes, Reports change in appetite (team reports pt is able to eat), Reports irritability, Reports anhedonia, Reports mood swings and Reports paranoia Mental Status Exam Mental Status Exam Narrative: Patient Appearance:?Disheveled Patient Orientation:?Person, Place and Situation Level of Consciousness:?Awake and Alert Patient Behavior:?Guarded, Suspicious, Aggressive (verbally), Belligerent, Swearing (a lot), Anxious, Fearful, Resistive to Care, Avoidant, Distractible, Good Eye Contact and Impulsive Patient Appearance: Disheveled and Malodorous Patient Orientation: Person, Place and Situation Level of Consciousness: Alert Patient Behavior: Guarded, Talkative, Suspicious, Aggressive, Restless, Belligerent, Resistive to Care, Avoidant, Distractible, Isolative, Good Eye Contact and Impulsive Mood Description: Labile and Angry Affect Description: Labile and Angry Patient Cognition Impaired: Yes Ability to Follow Directions: Fair Speech Pattern: Spontaneous Speech, Rapid, Excessive and Loud Memory Description: Remote Impaired and Episodic Impaired Diagnostics Vital Signs (24Hr): Vital Signs - 24 hr 12/21/20 18:00 12/22/20 06:00 Temperature 97.9 F 98 F Pulse Rate 95 70 Respiratory Rate 16 Blood Pressure 100/68 101/56 L Pulse Oximetry 98 Body Mass Index 29.2 Labs Results: 12/06/20 01:03 12/06/20 01:03 Medications Medications Current Medications Acetaminophen (Acetaminophen 325 Mg Tablet) 650 mg PO Q6H PRN PRN Reason: Headache/Pain Mild Scale (1-3) Al Hydroxide/Mg Hydroxide (Magnesium Hydrox/Alum Hydrox 30 Ml Oral.Susp) 30 ml PO Q6H PRN PRN Reason: Heartburn/Nausea Benztropine Mesylate (Benztropine Mesylate 1 Mg Tablet) 1 mg PO TID PRN PRN Reason: Extrapyramidal Effects Hydroxyzine HCl (Hydroxyzine Hcl 25 Mg Tablet) 25 mg PO BEDTIME PRN PRN Reason: Anxiety Magnesium Hydroxide (Milk Of Magnesia 30 Ml Oral.Susp) 30 ml PO DAILY PRN PRN Reason: Constipation Pt Own Med ( (Lansoprazole 30 Mg)) 1 each PO DAILY@0630 [facility] Last Admin: 12/22/20 06:31 Dose: Not Given Documented by: Olanzapine (Olanzapine 10 Mg Vial) 10 mg IM DAILY [facility] Last Admin: 12/22/20 09:40 Dose: 10 mg Documented by: Ondansetron HCl (Ondansetron Odt 4 Mg Tab.Rapdis) 8 mg TRANSLINGU Q8H PRN PRN Reason: Nausea Last Admin: 12/19/20 08:36 Dose: 8 mg Documented by: Pharmacy Consult (Consult Rx Perform Med Rec) 1 each MISCELLANE ONCE PRN PRN Reason: Consult order Trazodone HCl (Trazodone Hcl 50 Mg Tablet) 50 mg PO BEDTIME PRN PRN Reason: Insomnia Allergies Allergies Allergy/AdvReac Type Severity Reaction Status Date / Time metoclopramide [From Reglan] Allergy Muscle Verified 12/06/20 07:02 cramps haloperidol [From Haldol] AdvReac Severe Dystonia Verified 12/16/20 08:24 sucralfate [From Carafate] AdvReac Severe vomiting Verified 12/16/20 08:23 Assessment & Plan Assessment & Plan (1) Abnormal EEG: Status: Acute Code(s): R94.01 - Abnormal electroencephalogram [EEG] (2) Schizoaffective disorder, bipolar type: Status: Acute Code(s): F25.0 - Schizoaffective disorder, bipolar type (3) IBS (irritable bowel syndrome): Status: Acute Code(s): K58.9 - Irritable bowel syndrome without diarrhea Assessment and Plan: IMPRESSION: Pt is a 25 y.o. Female who carries a diagnosis of schizoaffective disorder. She has a hx of [facility] for paranoid delusional thought content and depression. Had OP services at [facility] but stopped taking medications and has been thus been decompensating. Crisis/ED reports family is afraid of patients aggressive behaviors, reports neglecting self care, not eating, not sleeping... Currently Pt is refusing PO medications at this time, may be interested in IM zyprexa.? Currently patient does not want male provider and effort is being made to see if she can be switched to female provider.? Patient admitted for safety and medication management Plan: Patient signed CV; patient then signed 3 day notice Q 15 minutes checks for safety Will work on switching to female provider Patient refusing p.o. meds Patient may be open to taking Zyprexa intramuscularly Will obtain collateral from family 12/10/20: Collateral contact with [facility] MRI- MRCP negative on 10/08/20-Pt provided with a copy of this. Message left for Dr. Mart of [facility] [phone] to discuss GI plan of care and if pt needs a consult while admitted. Nutritional eval ordered Pt declines contact with family and providers TDN expires 12/11/20. Pt informed I will proceed with request for commitment and asked to reconsider remaining here so we may re-establish her medications safely with consultation from her GI team, which cannot all be accomplished by 12/11. She will consider. She has made no decision on meds yet. 12/11/20 Care discussed with pt's father Section VII filed. GI consult appreciated. Continue evaluation. 12/12/20 Continue eval Pt given information on IM Olanzapine for review. 12/13/20: No change to the above plans 12/14/20: No changes to the current plan 12/15/20: Encourage pt to trial IM Olanzapine. 12/16/20:? Court date continued to Dec ? Dr. Gomez has suggested a trial of Lansoprazole 30 mg dissolvable which was ordered. 12/17/20: Offer Lansoprazole when available, if effective PO atypicals ? Pt will accept IM Haldol-however, 3 reports indicated hx of significant dystonic reaction (father-a physician, [employer] [facility], and psychiatrist-[facility] records unable to be accessed). Continue to offer Olanzapine. 12/18/20: Pt has had two doses of IM olanzapine, tolerating it well. Continues to present with paranoia, internally preoccupied, irritable. She is willing to trial increased sublingual zofran to 8 mg BID PRN for continued GI distress. Had neuro consult, much appreciated, recent abnormal EEG suggesting mild left temporal slowing. There was no clinical or EEG evidence of seizure disorder.? Noncontrast head CT was okay.? Examination was nonfocal.?Dr. Vasquez recommend obtaining an MRI of brain with and without contrast to rule out any focal lesion explaining this abnormality. This type of abnormality could also be nonspecific. 12/19/20 Pt has declined MRI Lansoprazole 30 mg initiated and tolerate Repeat nutrition consult ordered. 12/21; Ct plan 12/22/20: Attempted to discuss plan of care with pt/medications/goals. Pt refuses. Continue Olanzapine Court 12/25/20. I spent _35 minutes with the patient and/or on the patient floor today, greater than?50% of which was spent counseling/coordinating care. Patient educated on: medication risk/benefits and therapeutic strategies Informed Consent: further education needed Reason for contiued inpatient stay Substantial Risk for: harm to self, harm to others, inability to function, rapid decompensation and med/psych decompensation
[2020-12-23] MEDS: OLANZapine 10 MG VIAL IM (08:33)
--- NOTE | 2020-12-23 16:41 | HO.PSYCHPN ---
Subjective Subjective Date of Service: 12/23/20 Reason For Visit: Schizoaffective Disorder Subjective Notes: Section 7 Healthcare Proxy: No Guardianship: No Medical Problems Affecting Mental Status: No Interim History: Team reports Delaney is less aggressive and caustic in interaction. She attended groups this afternoon and is observed to be attentive and increasing her passive participation. She remains guarded, caustic and difficult to engage in discussion regarding treatment, focusing on a peripheral issue, becoming agitated, verbally abusive and abruptly leaving the meeting, diverting from treatment planning. She has refused lansoprazole, stating it does not work. Team reports intake is adequate and without vomiting. Medication Compliance: Intermittent Side effects from medications: No Attending Groups: Yes Review of Systems -Refuses lansoprazole -Refuses MRI suggested by Dr. Tierney Medical Review of Systems: unchanged Review of Systems Reports behavioral changes Psychiatric: Reports behavioral changes, Reports change in appetite (team reports pt is able to eat), Reports irritability, Reports anhedonia, Reports mood swings and Reports paranoia Mental Status Exam Mental Status Exam Patient Appearance: Disheveled and Malodorous Patient Orientation: Person, Place and Situation Level of Consciousness: Alert Patient Behavior: Guarded, Talkative, Suspicious, Aggressive, Restless, Belligerent, Resistive to Care, Avoidant, Distractible, Isolative, Good Eye Contact and Impulsive Mood Description: Labile and Angry Affect Description: Labile and Angry Patient Cognition Impaired: Yes Ability to Follow Directions: Fair Speech Pattern: Spontaneous Speech, Rapid, Excessive and Loud Memory Description: Remote Impaired and Episodic Impaired Diagnostics Vital Signs (24Hr): Body Mass Index 29.2 Labs Results: 12/06/20 01:03 12/06/20 01:03 Medications Medications Current Medications Acetaminophen (Acetaminophen 325 Mg Tablet) 650 mg PO Q6H PRN PRN Reason: Headache/Pain Mild Scale (1-3) Al Hydroxide/Mg Hydroxide (Magnesium Hydrox/Alum Hydrox 30 Ml Oral.Susp) 30 ml PO Q6H PRN PRN Reason: Heartburn/Nausea Benztropine Mesylate (Benztropine Mesylate 1 Mg Tablet) 1 mg PO TID PRN PRN Reason: Extrapyramidal Effects Hydroxyzine HCl (Hydroxyzine Hcl 25 Mg Tablet) 25 mg PO BEDTIME PRN PRN Reason: Anxiety Magnesium Hydroxide (Milk Of Magnesia 30 Ml Oral.Susp) 30 ml PO DAILY PRN PRN Reason: Constipation Pt Own Med ( (Lansoprazole 30 Mg)) 1 each PO DAILY@0630 [facility] Last Admin: 12/23/20 08:37 Dose: Not Given Documented by: Olanzapine (Olanzapine 10 Mg Vial) 10 mg IM DAILY [facility] Last Admin: 12/23/20 08:33 Dose: 10 mg Documented by: Ondansetron HCl (Ondansetron Odt 4 Mg Tab.Rapdis) 8 mg TRANSLINGU Q8H PRN PRN Reason: Nausea Last Admin: 12/19/20 08:36 Dose: 8 mg Documented by: Pharmacy Consult (Consult Rx Perform Med Rec) 1 each MISCELLANE ONCE PRN PRN Reason: Consult order Trazodone HCl (Trazodone Hcl 50 Mg Tablet) 50 mg PO BEDTIME PRN PRN Reason: Insomnia Allergies Allergies Allergy/AdvReac Type Severity Reaction Status Date / Time metoclopramide [From Reglan] Allergy Muscle Verified 12/06/20 07:02 cramps haloperidol [From Haldol] AdvReac Severe Dystonia Verified 12/16/20 08:24 sucralfate [From Carafate] AdvReac Severe vomiting Verified 12/16/20 08:23 Assessment & Plan Assessment & Plan (1) Abnormal EEG: Status: Acute Code(s): R94.01 - Abnormal electroencephalogram [EEG] (2) Schizoaffective disorder, bipolar type: Status: Acute Code(s): F25.0 - Schizoaffective disorder, bipolar type (3) IBS (irritable bowel syndrome): Status: Acute Code(s): K58.9 - Irritable bowel syndrome without diarrhea Assessment and Plan: IMPRESSION: Pt is a 25 y.o. Female who carries a diagnosis of schizoaffective disorder. She has a hx of [facility] for paranoid delusional thought content and depression. Had OP services at [facility] but stopped taking medications and has been thus been decompensating. Crisis/ED reports family is afraid of patients aggressive behaviors, reports neglecting self care, not eating, not sleeping... Currently Pt is refusing PO medications at this time, may be interested in IM zyprexa.? Currently patient does not want male provider and effort is being made to see if she can be switched to female provider.? Patient admitted for safety and medication management Plan: Patient signed CV; patient then signed 3 day notice Q 15 minutes checks for safety Will work on switching to female provider Patient refusing p.o. meds Patient may be open to taking Zyprexa intramuscularly Will obtain collateral from family 12/10/20: Collateral contact with [facility] MRI- MRCP negative on 10/08/20-Pt provided with a copy of this. Message left for Dr. Mart of [facility] [phone] to discuss GI plan of care and if pt needs a consult while admitted. Nutritional eval ordered Pt declines contact with family and providers TDN expires 12/11/20. Pt informed I will proceed with request for commitment and asked to reconsider remaining here so we may re-establish her medications safely with consultation from her GI team, which cannot all be accomplished by 12/11. She will consider. She has made no decision on meds yet. 12/11/20 Care discussed with pt's father Section VII filed. GI consult appreciated. Continue evaluation. 12/12/20 Continue eval Pt given information on IM Olanzapine for review. 12/13/20: No change to the above plans 12/14/20: No changes to the current plan 12/15/20: Encourage pt to trial IM Olanzapine. 12/16/20:? Court date continued to Dec ? Dr. Gomez has suggested a trial of Lansoprazole 30 mg dissolvable which was ordered. 12/17/20: Offer Lansoprazole when available, if effective PO atypicals ? Pt will accept IM Haldol-however, 3 reports indicated hx of significant dystonic reaction (father-a physician, [employer] [facility], and psychiatrist-[facility] records unable to be accessed). Continue to offer Olanzapine. 12/18/20: Pt has had two doses of IM olanzapine, tolerating it well. Continues to present with paranoia, internally preoccupied, irritable. She is willing to trial increased sublingual zofran to 8 mg BID PRN for continued GI distress. Had neuro consult, much appreciated, recent abnormal EEG suggesting mild left temporal slowing. There was no clinical or EEG evidence of seizure disorder.? Noncontrast head CT was okay.? Examination was nonfocal.?Dr. Vasquez recommend obtaining an MRI of brain with and without contrast to rule out any focal lesion explaining this abnormality. This type of abnormality could also be nonspecific. 12/19/20 Pt has declined MRI Lansoprazole 30 mg initiated and tolerate Repeat nutrition consult ordered. 12/21; Ct plan 12/22/20: Attempted to discuss plan of care with pt/medications/goals. Pt refuses. Continue Olanzapine Court 12/25/20. 12/23/20: Team reports pt is more visable in milieu and less agitated. Court 12/25/20. I spent 20 minutes with the patient and/or on the patient floor today, greater than?50% of which was spent counseling/coordinating care. Informed Consent: does not understand Reason for contiued inpatient stay Substantial Risk for: harm to self, harm to others, inability to function, rapid decompensation and med/psych decompensation
[2020-12-23 16:50] VITALS: BP 109/61; PULSE 76; TEMP 36.8
[2020-12-24] MEDS: OLANZapine 10 MG VIAL IM (08:35)
--- NOTE | 2020-12-24 14:51 | HO.PSYCHPN ---
Subjective Subjective Date of Service: 12/24/20 Reason For Visit: Schizoaffective Disorder Subjective Notes: Section 7 Healthcare Proxy: No Guardianship: No Medical Problems Affecting Mental Status: No Interim History: Some improvements are noted. Pt is in the milieu, she is sitting with others at the table, quietly, with some interaction. She is able to talk with some of the team without anger, irritability and verbally caustic sx. She is eating. Accepting IM Olanzapine 10 mg and does not appear with SE or sx of being overmedicated. Hygiene continues to be poor, pt continues to be resistant to talking about her treatment plan without dismissing the conversation and leaving the room before beginning to discuss this issue. . Withdrawal and negativity continue, but have decreased (per OP team report pt is consistently negative, caustic and abusive with providers-which has maintained during her stay thus far.). In consideration of these improvements, pt continues not to be prepared for discharge. Civil commitment hearding 12/25/20. Medication Compliance: Intermittent Side effects from medications: No Attending Groups: Intermittent Review of Systems Acute medical concerns: No Refusal of lansoprazole for GI distress. Pt able to eat but reports she cannot take PO medications due to GI distress. Medical Review of Systems: unchanged Review of Systems Gastrointestinal: Reports other (Eating, reports GI sx when taking PO medications.) Reports behavioral changes Psychiatric: Reports abnormal sleep pattern (reports poor sleep, team document pt is sleeping), Reports behavioral changes, Reports change in appetite, Reports irritability and Reports paranoia Mental Status Exam Mental Status Exam Patient Appearance: Disheveled, Unkempt and Malodorous Patient Orientation: Person, Place, Time and Situation Level of Consciousness: Awake and Alert Patient Behavior: Appropriate, Guarded, Suspicious, Avoidant and Distractible Mood Description: Calm, Suspicious and Withdrawn Affect Description: Flat Patient Cognition Impaired: No Ability to Follow Directions: Fair Speech Pattern: Spontaneous Speech Memory Description: Episodic Impaired Delusions: Paranoid Ideation Perceptual Disturbances: Depersonalization and Derealization Thought Process: Illogical Thought Content: positive for [place] and positive for Circumstantial Depressive Symptoms: Insomnia, Increased Irritability, Difficulty Sleeping, Changes in Appetite and Unexplained Stomach Pain Judgement: Poor Diagnostics Vital Signs (24Hr): Vital Signs - 24 hr 12/23/20 16:50 Temperature 98.3 F Pulse Rate 76 Blood Pressure 109/61 Body Mass Index 29.2 Labs Results: 12/06/20 01:03 12/06/20 01:03 Medications Medications Current Medications Acetaminophen (Acetaminophen 325 Mg Tablet) 650 mg PO Q6H PRN PRN Reason: Headache/Pain Mild Scale (1-3) Al Hydroxide/Mg Hydroxide (Magnesium Hydrox/Alum Hydrox 30 Ml Oral.Susp) 30 ml PO Q6H PRN PRN Reason: Heartburn/Nausea Benztropine Mesylate (Benztropine Mesylate 1 Mg Tablet) 1 mg PO TID PRN PRN Reason: Extrapyramidal Effects Hydroxyzine HCl (Hydroxyzine Hcl 25 Mg Tablet) 25 mg PO BEDTIME PRN PRN Reason: Anxiety Magnesium Hydroxide (Milk Of Magnesia 30 Ml Oral.Susp) 30 ml PO DAILY PRN PRN Reason: Constipation Pt Own Med ( (Lansoprazole 30 Mg)) 1 each PO DAILY@0630 [facility] Last Admin: 12/24/20 08:42 Dose: Not Given Documented by: Olanzapine (Olanzapine 10 Mg Vial) 10 mg IM DAILY [facility] Last Admin: 12/24/20 08:35 Dose: 10 mg Documented by: Ondansetron HCl (Ondansetron Odt 4 Mg Tab.Rapdis) 8 mg TRANSLINGU Q8H PRN PRN Reason: Nausea Last Admin: 12/19/20 08:36 Dose: 8 mg Documented by: Pharmacy Consult (Consult Rx Perform Med Rec) 1 each MISCELLANE ONCE PRN PRN Reason: Consult order Trazodone HCl (Trazodone Hcl 50 Mg Tablet) 50 mg PO BEDTIME PRN PRN Reason: Insomnia Allergies Allergies Allergy/AdvReac Type Severity Reaction Status Date / Time metoclopramide [From Reglan] Allergy Muscle Verified 12/06/20 07:02 cramps haloperidol [From Haldol] AdvReac Severe Dystonia Verified 12/16/20 08:24 sucralfate [From Carafate] AdvReac Severe vomiting Verified 12/16/20 08:23 Assessment & Plan Assessment & Plan (1) Abnormal EEG: Status: Acute Code(s): R94.01 - Abnormal electroencephalogram [EEG] (2) Schizoaffective disorder, bipolar type: Status: Acute Code(s): F25.0 - Schizoaffective disorder, bipolar type (3) IBS (irritable bowel syndrome): Status: Acute Code(s): K58.9 - Irritable bowel syndrome without diarrhea Assessment and Plan: IMPRESSION: Pt is a 25 y.o. Female who carries a diagnosis of schizoaffective disorder. She has a hx of [facility] for paranoid delusional thought content and depression. Had OP services at [facility] but stopped taking medications and has been thus been decompensating. Crisis/ED reports family is afraid of patients aggressive behaviors, reports neglecting self care, not eating, not sleeping... Currently Pt is refusing PO medications at this time, may be interested in IM zyprexa.? Currently patient does not want male provider and effort is being made to see if she can be switched to female provider.? Patient admitted for safety and medication management Plan: Patient signed CV; patient then signed 3 day notice Q 15 minutes checks for safety Will work on switching to female provider Patient refusing p.o. meds Patient may be open to taking Zyprexa intramuscularly Will obtain collateral from family 12/10/20: Collateral contact with [facility] MRI- MRCP negative on 10/08/20-Pt provided with a copy of this. Message left for Dr. Mart of [facility] [phone] to discuss GI plan of care and if pt needs a consult while admitted. Nutritional eval ordered Pt declines contact with family and providers TDN expires 12/11/20. Pt informed I will proceed with request for commitment and asked to reconsider remaining here so we may re-establish her medications safely with consultation from her GI team, which cannot all be accomplished by 12/11. She will consider. She has made no decision on meds yet. 12/11/20 Care discussed with pt's father Section VII filed. GI consult appreciated. Continue evaluation. 12/12/20 Continue eval Pt given information on IM Olanzapine for review. 12/13/20: No change to the above plans 12/14/20: No changes to the current plan 12/15/20: Encourage pt to trial IM Olanzapine. 12/16/20:? Court date continued to Dec ? Dr. Gomez has suggested a trial of Lansoprazole 30 mg dissolvable which was ordered. 12/17/20: Offer Lansoprazole when available, if effective PO atypicals ? Pt will accept IM Haldol-however, 3 reports indicated hx of significant dystonic reaction (father-a physician, [employer] [facility], and psychiatrist-[facility] records unable to be accessed). Continue to offer Olanzapine. 12/18/20: Pt has had two doses of IM olanzapine, tolerating it well. Continues to present with paranoia, internally preoccupied, irritable. She is willing to trial increased sublingual zofran to 8 mg BID PRN for continued GI distress. Had neuro consult, much appreciated, recent abnormal EEG suggesting mild left temporal slowing. There was no clinical or EEG evidence of seizure disorder.? Noncontrast head CT was okay.? Examination was nonfocal.?Dr. Vasquez recommend obtaining an MRI of brain with and without contrast to rule out any focal lesion explaining this abnormality. This type of abnormality could also be nonspecific. 12/19/20 Pt has declined MRI Lansoprazole 30 mg initiated and tolerate Repeat nutrition consult ordered. 12/21; Ct plan 12/22/20: Attempted to discuss plan of care with pt/medications/goals. Pt refuses. Continue Olanzapine Court 12/25/20. 12/23/20: Team reports pt is more visable in milieu and less agitated. Court 12/25/20. 12/24/20: Some increased appropriate interaction noted and milieu tolerance. Court 12/25/20. I spent 20 observation minutes with the patient and/or on the patient floor today, greater than?50% of which was spent counseling/coordinating care. Informed Consent: does not understand Reason for contiued inpatient stay Substantial Risk for: harm to self, harm to others, inability to function and rapid decompensation
[2020-12-24 20:45] VITALS: BP 114/68; PULSE 87; TEMP 36.4; O2SAT 100
[2020-12-25] MEDS: OLANZapine 10 MG VIAL IM (09:41)
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
[2020-12-25 17:57] VITALS: BP 119/69; PULSE 94; TEMP 36.6
[2020-12-26] MEDS: OLANZapine 10 MG VIAL IM (09:18)
--- NOTE | 2020-12-26 16:23 | P.PNPSI_ITS ---
Subjective Subjective Date of Service: 12/26/20 Reason For Visit: Schizoaffective Disorder Healthcare Proxy: No Guardianship: No Medical Problems Affecting Mental Status: No Interim History: Team reports pt did shower last night. We await court decision regarding continued treatment. Pt with some milieu participation-mainly art projects and games-will not discuss care with tw--- Go ... Call from mother who reports she called pt to check in last night. Pt was angry, dismissive and hung up on mother, only to call her back and continue to express anger with her. Pt, if discharged by the court, per family, will not be allowed at the home. She will not have a vehicle returned to her and there are no family or friends for her to stay with. [facility] may be able to offer respite. [facility] could ask pt if she would like to remain and complete treatment. Pt tells team she is planning to get her car and go to a hotel. Family reports she has no funds to implement this. Medication Compliance: Yes Side effects from medications: No Attending Groups: Yes Review of Systems Acute medical concerns: No Medical Review of Systems: unchanged Review of Systems Reports behavioral changes Psychiatric: Reports anxiety, Reports behavioral changes, Reports irritability and Reports paranoia Mental Status Exam Mental Status Exam Patient Appearance: Disheveled, Unkempt and Malodorous Patient Orientation: Person, Place, Time and Situation Level of Consciousness: Awake and Alert Patient Behavior: Appropriate, Guarded, Suspicious, Avoidant and Distractible Mood Description: Calm, Suspicious and Withdrawn Affect Description: Flat Patient Cognition Impaired: No Ability to Follow Directions: Fair Speech Pattern: Spontaneous Speech Memory Description: Episodic Impaired Delusions: Paranoid Ideation Perceptual Disturbances: Depersonalization and Derealization Thought Process: Illogical Thought Content: positive for [place] and positive for Circumstantial Depressive Symptoms: Insomnia, Increased Irritability, Difficulty Sleeping, Changes in Appetite and Unexplained Stomach Pain Judgement: Poor Diagnostics Vital Signs (24Hr): Vital Signs - 24 hr 12/25/20 17:57 Temperature 98 F Pulse Rate 94 Blood Pressure 119/69 Body Mass Index 29.2 Labs Results: 12/06/20 01:03 12/06/20 01:03 Medications Medications Current Medications Acetaminophen (Acetaminophen 325 Mg Tablet) 650 mg PO Q6H PRN PRN Reason: Headache/Pain Mild Scale (1-3) Al Hydroxide/Mg Hydroxide (Magnesium Hydrox/Alum Hydrox 30 Ml Oral.Susp) 30 ml PO Q6H PRN PRN Reason: Heartburn/Nausea Benztropine Mesylate (Benztropine Mesylate 1 Mg Tablet) 1 mg PO TID PRN PRN Reason: Extrapyramidal Effects Hydroxyzine HCl (Hydroxyzine Hcl 25 Mg Tablet) 25 mg PO BEDTIME PRN PRN Reason: Anxiety Magnesium Hydroxide (Milk Of Magnesia 30 Ml Oral.Susp) 30 ml PO DAILY PRN PRN Reason: Constipation Pt Own Med ( (Lansoprazole 30 Mg)) 1 each PO DAILY@0630 [facility] Last Admin: 12/26/20 06:45 Dose: Not Given Documented by: Olanzapine (Olanzapine 10 Mg Vial) 10 mg IM DAILY [facility] Last Admin: 12/26/20 09:18 Dose: 10 mg Documented by: Ondansetron HCl (Ondansetron Odt 4 Mg Tab.Rapdis) 8 mg TRANSLINGU Q8H PRN PRN Reason: Nausea Last Admin: 12/19/20 08:36 Dose: 8 mg Documented by: Pharmacy Consult (Consult Rx Perform Med Rec) 1 each MISCELLANE ONCE PRN PRN Reason: Consult order Trazodone HCl (Trazodone Hcl 50 Mg Tablet) 50 mg PO BEDTIME PRN PRN Reason: Insomnia Allergies Allergies Allergy/AdvReac Type Severity Reaction Status Date / Time metoclopramide [From Reglan] Allergy Muscle Verified 12/06/20 07:02 cramps haloperidol [From Haldol] AdvReac Severe Dystonia Verified 12/16/20 08:24 sucralfate [From Carafate] AdvReac Severe vomiting Verified 12/16/20 08:23 Assessment & Plan Assessment & Plan (1) Abnormal EEG: Status: Acute Code(s): R94.01 - Abnormal electroencephalogram [EEG] (2) Schizoaffective disorder, bipolar type: Status: Acute Code(s): F25.0 - Schizoaffective disorder, bipolar type (3) IBS (irritable bowel syndrome): Status: Acute Code(s): K58.9 - Irritable bowel syndrome without diarrhea Assessment and Plan: IMPRESSION: Pt is a 25 y.o. Female who carries a diagnosis of schizoaffective disorder. She has a hx of [facility] for paranoid delusional thought content and depression. Had OP services at [facility] but stopped taking medications and has been thus been decompensating. Crisis/ED reports family is afraid of patients aggressive behaviors, reports neglecting self care, not eating, not sleeping... Currently Pt is refusing PO medications at this time, may be interested in IM zyprexa.? Currently patient does not want male provider and effort is being made to see if she can be switched to female provider.? Patient admitted for safety and medication management Plan: Patient signed CV; patient then signed 3 day notice Q 15 minutes checks for safety Will work on switching to female provider Patient refusing p.o. meds Patient may be open to taking Zyprexa intramuscularly Will obtain collateral from family 12/10/20: Collateral contact with [facility] MRI- MRCP negative on 10/08/20-Pt provided with a copy of this. Message left for Dr. Mart of [facility] [phone] to discuss GI plan of care and if pt needs a consult while admitted. Nutritional eval ordered Pt declines contact with family and providers TDN expires 12/11/20. Pt informed I will proceed with request for commitment and asked to reconsider remaining here so we may re-establish her medications safely with consultation from her GI team, which cannot all be accomplished by 12/11. She will consider. She has made no decision on meds yet. 12/11/20 Care discussed with pt's father Section VII filed. GI consult appreciated. Continue evaluation. 12/12/20 Continue eval Pt given information on IM Olanzapine for review. 12/13/20: No change to the above plans 12/14/20: No changes to the current plan 12/15/20: Encourage pt to trial IM Olanzapine. 12/16/20:? Court date continued to Dec ? Dr. Gomez has suggested a trial of Lansoprazole 30 mg dissolvable which was ordered. 12/17/20: Offer Lansoprazole when available, if effective PO atypicals ? Pt will accept IM Haldol-however, 3 reports indicated hx of significant dystonic reaction (father-a physician, [facility] OP Team, and psychiatrist-[facility] records unable to be accessed). Continue to offer Olanzapine. 12/18/20: Pt has had two doses of IM olanzapine, tolerating it well. Continues to present with paranoia, internally preoccupied, irritable. She is willing to trial increased sublingual zofran to 8 mg BID PRN for continued GI distress. Had neuro consult, much appreciated, recent abnormal EEG suggesting mild left temporal slowing. There was no clinical or EEG evidence of seizure disorder.? Noncontrast head CT was okay.? Examination was nonfocal.?Dr. Vasquez recommend obtaining an MRI of brain with and without contrast to rule out any focal lesion explaining this abnormality. This type of abnormality could also be nonspecific. 12/19/20 Pt has declined MRI Lansoprazole 30 mg initiated and tolerate Repeat nutrition consult ordered. 12/21; Ct plan 12/22/20: Attempted to discuss plan of care with pt/medications/goals. Pt refuses. Continue Olanzapine Court 12/25/20. 12/23/20: Team reports pt is more visable in milieu and less agitated. Court 12/25/20. 12/24/20: Some increased appropriate interaction noted and milieu tolerance. Court 12/25/20. 12/25/20: Court hearing is continued without a finding. Family is working with [facility] on possible options for pt. They report pt currently has no options. Pt tentatively planning discharge to a hotel. Court decision pending. 12/26/20: Court decision pending. Continue current plan. I spent 30 minutes with the patient and/or on the patient floor today, greater than?50% of which was spent counseling/coordinating care. Informed Consent: further education needed Reason for contiued inpatient stay Substantial Risk for: harm to self, harm to others, inability to function, rapid decompensation and med/psych decompensation
[2020-12-26 19:22] VITALS: BP 111/67; PULSE 75; RESP 16; TEMP 36.3; O2SAT 100
[2020-12-27 06:00] VITALS: BP 111/73; PULSE 75; RESP 18; TEMP 36.5; O2SAT 100
[2020-12-27] MEDS: OLANZapine 10 MG VIAL IM (08:31)
--- NOTE | 2020-12-27 17:13 | P.PNPSI_ITS ---
Subjective Subjective Date of Service: 12/27/20 Reason For Visit: Schizoaffective Disorder Subjective Notes: Section 7 Medical Problems Affecting Mental Status: No Interim History: patient declined to engage with mortgage underwriter. Reported she felt f ine and had nothing to talk about. She did appear guarded. As per staff is paranoid poor ADLs. Medication Compliance: No Attending Groups: Intermittent Review of Systems Acute medical concerns: No Review of Systems Review of Systems unable to fully evaluate Comments: . Mental Status Exam Mental Status Exam Narrative: In room. Declined to engage with mortgage underwriter. Was seen intermittently in groups engaging at times with others. Is irritable and guarded. No evidence of SI or HI. Some internal preoccupation. Insight and judgment limited Diagnostics Vital Signs (24Hr): Vital Signs - 24 hr 12/26/20 19:22 12/27/20 06:00 Temperature 97.3 F 97.7 F Pulse Rate 75 75 Respiratory Rate 16 18 Blood Pressure 111/67 111/73 Pulse Oximetry 100 100 Body Mass Index 29.2 Labs Results: 12/06/20 01:03 12/06/20 01:03 Medications Medications Current Medications Acetaminophen (Acetaminophen 325 Mg Tablet) 650 mg PO Q6H PRN PRN Reason: Headache/Pain Mild Scale (1-3) Al Hydroxide/Mg Hydroxide (Magnesium Hydrox/Alum Hydrox 30 Ml Oral.Susp) 30 ml PO Q6H PRN PRN Reason: Heartburn/Nausea Benztropine Mesylate (Benztropine Mesylate 1 Mg Tablet) 1 mg PO TID PRN PRN Reason: Extrapyramidal Effects Hydroxyzine HCl (Hydroxyzine Hcl 25 Mg Tablet) 25 mg PO BEDTIME PRN PRN Reason: Anxiety Magnesium Hydroxide (Milk Of Magnesia 30 Ml Oral.Susp) 30 ml PO DAILY PRN PRN Reason: Constipation Pt Own Med ( (Lansoprazole 30 Mg)) 1 each PO DAILY@0630 [facility] Last Admin: 12/27/20 08:38 Dose: Not Given Documented by: Olanzapine (Olanzapine 10 Mg Vial) 10 mg IM DAILY [facility] Last Admin: 12/27/20 08:31 Dose: 10 mg Documented by: Ondansetron HCl (Ondansetron Odt 4 Mg Tab.Rapdis) 8 mg TRANSLINGU Q8H PRN PRN Reason: Nausea Last Admin: 12/19/20 08:36 Dose: 8 mg Documented by: Pharmacy Consult (Consult Rx Perform Med Rec) 1 each MISCELLANE ONCE PRN PRN Reason: Consult order Trazodone HCl (Trazodone Hcl 50 Mg Tablet) 50 mg PO BEDTIME PRN PRN Reason: Insomnia Allergies Allergies Allergy/AdvReac Type Severity Reaction Status Date / Time metoclopramide [From Reglan] Allergy Muscle Verified 12/06/20 07:02 cramps haloperidol [From Haldol] AdvReac Severe Dystonia Verified 12/16/20 08:24 sucralfate [From Carafate] AdvReac Severe vomiting Verified 12/16/20 08:23 Assessment & Plan Assessment & Plan (1) Abnormal EEG: Status: Acute Code(s): R94.01 - Abnormal electroencephalogram [EEG] (2) Schizoaffective disorder, bipolar type: Status: Acute Code(s): F25.0 - Schizoaffective disorder, bipolar type (3) IBS (irritable bowel syndrome): Status: Acute Code(s): K58.9 - Irritable bowel syndrome without diarrhea Assessment and Plan: IMPRESSION: Pt is a 25 y.o. Female who carries a diagnosis of schizoaffective disorder. She has a hx of [facility] for paranoid delusional thought content and depression. Had OP services at [facility] but stopped taking medications and has been thus been decompensating. Crisis/ED reports family is afraid of patients aggressive behaviors, reports neglecting self care, not eating, not sleeping... Currently Pt is refusing PO medications at this time, may be interested in IM zyprexa.? Currently patient does not want male provider and effort is being made to see if she can be switched to female provider.? Patient admitted for safety and medication management Plan: Patient signed CV; patient then signed 3 day notice Q 15 minutes checks for safety Will work on switching to female provider Patient refusing p.o. meds Patient may be open to taking Zyprexa intramuscularly Will obtain collateral from family 12/10/20: Collateral contact with [facility] MRI- MRCP negative on 10/08/20-Pt provided with a copy of this. Message left for Dr. Mart of [facility] [phone] to discuss GI plan of care and if pt needs a consult while admitted. Nutritional eval ordered Pt declines contact with family and providers TDN expires 12/11/20. Pt informed I will proceed with request for commitment and asked to reconsider remaining here so we may re-establish her medications safely with consultation from her GI team, which cannot all be accomplished by 12/11. She will consider. She has made no decision on meds yet. 12/11/20 Care discussed with pt's father Section VII filed. GI consult appreciated. Continue evaluation. 12/12/20 Continue eval Pt given information on IM Olanzapine for review. 12/13/20: No change to the above plans 12/14/20: No changes to the current plan 12/15/20: Encourage pt to trial IM Olanzapine. 12/16/20:? Court date continued to Dec ? Dr. Gomez has suggested a trial of Lansoprazole 30 mg dissolvable which was ordered. 12/17/20: Offer Lansoprazole when available, if effective PO atypicals ? Pt will accept IM Haldol-however, 3 reports indicated hx of significant dystonic reaction (father-a physician, [facility], and psychiatrist-[facility] records unable to be accessed). Continue to offer Olanzapine. 12/18/20: Pt has had two doses of IM olanzapine, tolerating it well. Continues to present with paranoia, internally preoccupied, irritable. She is willing to trial increased sublingual zofran to 8 mg BID PRN for continued GI distress. Had neuro consult, much appreciated, recent abnormal EEG suggesting mild left temporal slowing. There was no clinical or EEG evidence of seizure disorder.? Noncontrast head CT was okay.? Examination was nonfocal.?Dr. Vasquez recommend obtaining an MRI of brain with and without contrast to rule out any focal lesion explaining this abnormality. This type of abnormality could also be nonspecific. 12/19/20 Pt has declined MRI Lansoprazole 30 mg initiated and tolerate Repeat nutrition consult ordered. 12/21; Ct plan 12/22/20: Attempted to discuss plan of care with pt/medications/goals. Pt refuses. Continue Olanzapine Court 12/25/20. 12/23/20: Team reports pt is more visable in milieu and less agitated. Court 12/25/20. 12/24/20: Some increased appropriate interaction noted and milieu tolerance. Court 12/25/20. 12/25/20: Court hearing is continued without a finding. Family is working with [facility] on possible options for pt. They report pt currently has no options. Pt tentatively planning discharge to a hotel. Court decision pending. 12/26/20: Court decision pending. Continue current plan. 12/27/2020: No changes to primary team treatment plan I spent minutes with the patient and/or on the patient floor today, greater than?50% of which was spent counseling/coordinating care. Reason for contiued inpatient stay Substantial Risk for: inability to function
[2020-12-27 17:15] VITALS: BP 116/71; PULSE 81; RESP 16; TEMP 36.6; O2SAT 100
[2020-12-28] MEDS: OLANZapine 10 MG VIAL IM (08:17)
--- NOTE | 2020-12-28 12:29 | HO.PSYCHPN ---
Subjective Subjective Date of Service: 12/28/20 Reason For Visit: Schizoaffective Disorder Medical Problems Affecting Mental Status: No Interim History: Patient irritable and guarded today. Reports she has nothing to talk about and does not feel that she needs medications. Denied depression, SI or HI. report having a headache does not want to take anything for same. ADLs are poor. Getting Zyprexa IM as per court order Medication Compliance: No Side effects from medications: No Attending Groups: Intermittent Review of Systems Acute medical concerns: No Review of Systems Review of Systems Endorses having a headache Mental Status Exam Mental Status Exam Narrative: In room. Eating breakfast. Irritable. Guarded. Was seen intermittently in groups engaging at times with others. Is irritable and guarded. No evidence of SI or HI. Some internal preoccupation. Insight and judgment limited Diagnostics Vital Signs (24Hr): Vital Signs - 24 hr 12/27/20 17:15 Temperature 97.8 F Pulse Rate 81 Respiratory Rate 16 Blood Pressure 116/71 Pulse Oximetry 100 Body Mass Index 29.2 Labs Results: 12/06/20 01:03 12/06/20 01:03 Medications Medications Current Medications Acetaminophen (Acetaminophen 325 Mg Tablet) 650 mg PO Q6H PRN PRN Reason: Headache/Pain Mild Scale (1-3) Al Hydroxide/Mg Hydroxide (Magnesium Hydrox/Alum Hydrox 30 Ml Oral.Susp) 30 ml PO Q6H PRN PRN Reason: Heartburn/Nausea Benztropine Mesylate (Benztropine Mesylate 1 Mg Tablet) 1 mg PO TID PRN PRN Reason: Extrapyramidal Effects Hydroxyzine HCl (Hydroxyzine Hcl 25 Mg Tablet) 25 mg PO BEDTIME PRN PRN Reason: Anxiety Magnesium Hydroxide (Milk Of Magnesia 30 Ml Oral.Susp) 30 ml PO DAILY PRN PRN Reason: Constipation Pt Own Med ( (Lansoprazole 30 Mg)) 1 each PO DAILY@0630 [facility] Last Admin: 12/28/20 08:24 Dose: Not Given Documented by: Olanzapine (Olanzapine 10 Mg Vial) [address] [facility] Last Admin: 12/28/20 08:17 Dose: 10 mg Documented by: Ondansetron HCl (Ondansetron Odt 4 Mg Tab.Rapdis) 8 mg TRANSLINGU Q8H PRN PRN Reason: Nausea Last Admin: 12/19/20 08:36 Dose: 8 mg Documented by: Pharmacy Consult (Consult Rx Perform Med Rec) 1 each MISCELLANE ONCE PRN PRN Reason: Consult order Trazodone HCl (Trazodone Hcl 50 Mg Tablet) 50 mg PO BEDTIME PRN PRN Reason: Insomnia Allergies Allergies Allergy/AdvReac Type Severity Reaction Status Date / Time metoclopramide [From Reglan] Allergy Muscle Verified 12/06/20 07:02 cramps haloperidol [From Haldol] AdvReac Severe Dystonia Verified 12/16/20 08:24 sucralfate [From Carafate] AdvReac Severe vomiting Verified 12/16/20 08:23 Assessment & Plan Assessment & Plan (1) Abnormal EEG: Status: Acute Code(s): R94.01 - Abnormal electroencephalogram [EEG] (2) Schizoaffective disorder, bipolar type: Status: Acute Code(s): F25.0 - Schizoaffective disorder, bipolar type (3) IBS (irritable bowel syndrome): Status: Acute Code(s): K58.9 - Irritable bowel syndrome without diarrhea Assessment and Plan: IMPRESSION: Pt is a 25 y.o. Female who carries a diagnosis of schizoaffective disorder. She has a hx of [facility] for paranoid delusional thought content and depression. Had OP services at [facility] but stopped taking medications and has been thus been decompensating. Crisis/ED reports family is afraid of patients aggressive behaviors, reports neglecting self care, not eating, not sleeping... Currently Pt is refusing PO medications at this time, may be interested in IM zyprexa.? Currently patient does not want male provider and effort is being made to see if she can be switched to female provider.? Patient admitted for safety and medication management Plan: Patient signed CV; patient then signed 3 day notice Q 15 minutes checks for safety Will work on switching to female provider Patient refusing p.o. meds Patient may be open to taking Zyprexa intramuscularly Will obtain collateral from family 12/10/20: Collateral contact with [facility] MRI- MRCP negative on 10/08/20-Pt provided with a copy of this. Message left for Dr. Mart of [facility] [phone] to discuss GI plan of care and if pt needs a consult while admitted. Nutritional eval ordered Pt declines contact with family and providers TDN expires 12/11/20. Pt informed I will proceed with request for commitment and asked to reconsider remaining here so we may re-establish her medications safely with consultation from her GI team, which cannot all be accomplished by 12/11. She will consider. She has made no decision on meds yet. 12/11/20 Care discussed with pt's father Section VII filed. GI consult appreciated. Continue evaluation. 12/12/20 Continue eval Pt given information on IM Olanzapine for review. 12/13/20: No change to the above plans 12/14/20: No changes to the current plan 12/15/20: Encourage pt to trial IM Olanzapine. 12/16/20:? Court date continued to Dec ? Dr. Gomez has suggested a trial of Lansoprazole 30 mg dissolvable which was ordered. 12/17/20: Offer Lansoprazole when available, if effective PO atypicals ? Pt will accept IM Haldol-however, 3 reports indicated hx of significant dystonic reaction (father-a physician, [facility], and psychiatrist-[facility] records unable to be accessed). Continue to offer Olanzapine. 12/18/20: Pt has had two doses of IM olanzapine, tolerating it well. Continues to present with paranoia, internally preoccupied, irritable. She is willing to trial increased sublingual zofran to 8 mg BID PRN for continued GI distress. Had neuro consult, much appreciated, recent abnormal EEG suggesting mild left temporal slowing. There was no clinical or EEG evidence of seizure disorder.? Noncontrast head CT was okay.? Examination was nonfocal.?Dr. Vasquez recommend obtaining an MRI of brain with and without contrast to rule out any focal lesion explaining this abnormality. This type of abnormality could also be nonspecific. 12/19/20 Pt has declined MRI Lansoprazole 30 mg initiated and tolerate Repeat nutrition consult ordered. 12/21; Ct plan 12/22/20: Attempted to discuss plan of care with pt/medications/goals. Pt refuses. Continue Olanzapine Court 12/25/20. 12/23/20: Team reports pt is more visable in milieu and less agitated. Court 12/25/20. 12/24/20: Some increased appropriate interaction noted and milieu tolerance. Court 12/25/20. 12/25/20: Court hearing is continued without a finding. Family is working with [facility] on possible options for pt. They report pt currently has no options. Pt tentatively planning discharge to a hotel. Court decision pending. 12/26/20: Court decision pending. Continue current plan. 12/28/2020: No changes to primary team treatment plan I spent minutes with the patient and/or on the patient floor today, greater than?50% of which was spent counseling/coordinating care. Reason for contiued inpatient stay Substantial Risk for: rapid decompensation
[2020-12-28 16:43] VITALS: BP 169/69; PULSE 81; RESP 16; TEMP 36.7; O2SAT 99
[2020-12-29 06:00] VITALS: BP 96/59; PULSE 69; RESP 18; TEMP 37; O2SAT 100
[2020-12-29 08:22] LABS: MANUAL DIFF FLAG NO
[2020-12-29 08:25] LABS: Basophils Percent Auto 0.2 % (0-2); Eosinophils Absolute Auto 0.1 X10*3/uL (0.0-0.4); Eosinophils Percent Auto 2.2 % (0-4); Hematocrit 35.5 % (37.0-47.0); Hemoglobin 11.6 g/dl (12.0-16.0); Imm Gran Abs Auto 0.01 X10*3/uL (0.00-0.03); Imm Gran Pct Auto 0.2 % (0.0-0.4); Lymphocytes Absolute Auto 1.9 X10*3/uL (1.2-4.9); Lymphocytes Percent Auto 33.5 % (20-40); Mean Corpuscular HGB Conc 32.7 g/dl (31.0-35.0); Mean Corpuscular Hemoglobin 31.4 pg (27.0-33.0); Mean Corpuscular Volume 95.9 fL (80.0-98.0); Mean Platelet Volume 9.1 fL (9.4-12.3); Monocytes Absolute Auto 0.5 X10*3/uL (0.1-1.2); Monocytes Percent Auto 9.5 % (2-11); Neutrophils Percent Auto 54.4 % (45-73); Platelet Count 391 X10*3/uL (160-400); Red Cell Distribution Width 14.4 % (11.0-16.0); White Blood Count 5.6 X10*3/uL (4.8-10.8)
[2020-12-29 08:43] LABS: Alanine Aminotransferase 31 U/L (0-31); Albumin Level 3.9 g/dL (3.5-5.0); Alkaline Phosphatase 75 U/L (39-117); Anion Gap 12 (12-20); Aspartate Amino Transferase 22 U/L (5-31); Bilirubin Total 0.4 mg/dL (0.0-1.0); Blood Urea Nitrogen 7 mg/dL (9-16); Calcium 9.2 mg/dL (8.4-10.2); Carbon Dioxide 27 mmol/L (22-29); Chloride 105 mmol/L (96-108); Creatinine Clr Calc Pharmacy 130.9; Estimated Glomerular Filt Rate > 60; Glucose Random 86 mg/dL (60-115); Potassium 4.8 mmol/L (3.3-5.1); Sodium 139 mmol/L (135-145); Total Protein 6.6 g/dL (6.5-8.0)
[2020-12-29] MEDS: OLANZapine 10 MG VIAL IM (08:55)
[2020-12-29 17:23] VITALS: BP 116/75; PULSE 94; TEMP 36.5; O2SAT 100
--- NOTE | 2020-12-29 17:29 | P.PNPSI_ITS ---
Subjective Subjective Date of Service: 12/29/20 Reason For Visit: Schizoaffective Disorder Subjective Notes: Section 7 Healthcare Proxy: No Guardianship: No Medical Problems Affecting Mental Status: No Interim History: [facility] continues to accept IM Olanzapine. We continue to await court decision regarding Section VIII. We have heard from the court that family is in process of a restraining order. Pt's mother has informed tw that pt will not be allowed to take a family vehicle and they believe she has no funds for a hotel or family/friends for resources for housing. When the court decision is completed, will discuss with pt options for ongoing care-possibly [facility] respite, possibly pt remaining in hospital on a voluntary basis to continue care. Pt continues to be dismissive of team. She is in the milieu at times, but is mostly isolative. Medication Compliance: Yes (olanzapine) Side effects from medications: No Attending Groups: Intermittent Review of Systems Acute medical concerns: No Medical Review of Systems: unchanged Review of Systems: Pt has not given an answer regarding continuing GI eval as the next phase may be with more invasive procedures (endoscopy). We will attempt to support pt in her decision making. Review of Systems Reports behavioral changes Psychiatric: Reports behavioral changes, Reports mood swings and Reports paranoia Mental Status Exam Mental Status Exam Patient Appearance: Malodorous Patient Orientation: Person, Place and Situation Level of Consciousness: Alert Patient Behavior: Guarded, Suspicious, Aggressive (verbally), Belligerent, Resistive to Care, Avoidant, Distractible, Isolative and Uncooperative Mood Description: Constricted Affect Description: Constricted Patient Cognition Impaired: Yes Ability to Follow Directions: Fair Speech Pattern: Perseverating and Spontaneous Speech Memory Description: Remote Impaired and Episodic Impaired Delusions: Paranoid Ideation Thought Process: Illogical Thought Content: positive for [place], positive for Circumstantial, positive for Preoccupation and positive for Thought Blocking Depressive Symptoms: Increased Irritability and Isolating-Friends/Family Abnormal Motor Activity Signs and Symptoms: Agitation Judgement: Poor Diagnostics Vital Signs (24Hr): Vital Signs - 24 hr 12/29/20 06:00 12/29/20 17:23 Temperature 98.6 F 97.7 F Pulse Rate 69 94 Respiratory Rate 18 Blood Pressure 96/59 L 116/75 Pulse Oximetry 100 100 Body Mass Index 29.2 Labs Results: 12/29/20 08:06 12/29/20 08:06 Labs: Laboratory Results - last 48 hr 12/29/20 12/29/20 08:06 08:06 WBC 5.6 RBC 3.70 L Hgb 11.6 L Hct 35.5 L MCV 95.9 MCH 31.4 MCHC 32.7 RDW 14.4 Plt Count 391 MPV 9.1 L Immature Gran % (Auto) 0.2 Neut % (Auto) 54.4 Lymph % (Auto) 33.5 Yancey % (Auto) 9.5 Eos % (Auto) 2.2 Baso % (Auto) 0.2 Lymph # (Auto) 1.9 Yancey # (Auto) 0.5 Eos # (Auto) 0.1 Baso # (Auto) 0.0 Abs Immat Gran (auto) 0.01 Absolute Neuts (auto) 3.0 Absolute Nucleated RBC 0.000 Nucleated RBC % (auto) 0.0 Sodium 139 Potassium 4.8 D Chloride 105 Carbon Dioxide 27 Anion Gap 12 BUN 7 L Creatinine 0.66 Estim Creat Clear Calc 130.9 Estimated GFR > 60 Random Glucose 86 Calcium 9.2 Total Bilirubin 0.4 AST 22 ALT 31 Alkaline Phosphatase 75 D Total Protein 6.6 Albumin 3.9 Medications Medications Current Medications Acetaminophen (Acetaminophen 325 Mg Tablet) 650 mg PO Q6H PRN PRN Reason: Headache/Pain Mild Scale (1-3) Al Hydroxide/Mg Hydroxide (Magnesium Hydrox/Alum Hydrox 30 Ml Oral.Susp) 30 ml PO Q6H PRN PRN Reason: Heartburn/Nausea Benztropine Mesylate (Benztropine Mesylate 1 Mg Tablet) 1 mg PO TID PRN PRN Reason: Extrapyramidal Effects Hydroxyzine HCl (Hydroxyzine Hcl 25 Mg Tablet) 25 mg PO BEDTIME PRN PRN Reason: Anxiety Magnesium Hydroxide (Milk Of Magnesia 30 Ml Oral.Susp) 30 ml PO DAILY PRN PRN Reason: Constipation Pt Own Med ( (Lansoprazole 30 Mg)) 1 each PO DAILY@0630 [facility] Last Admin: 12/29/20 08:22 Dose: Not Given Documented by: Olanzapine (Olanzapine 10 Mg Vial) 10 mg IM DAILY [facility] Last Admin: 12/29/20 08:55 Dose: 10 mg Documented by: Ondansetron HCl (Ondansetron Odt 4 Mg Tab.Rapdis) 8 mg TRANSLINGU Q8H PRN PRN Reason: Nausea Last Admin: 12/19/20 08:36 Dose: 8 mg Documented by: Pharmacy Consult (Consult Rx Perform Med Rec) 1 each MISCELLANE ONCE PRN PRN Reason: Consult order Trazodone HCl (Trazodone Hcl 50 Mg Tablet) 50 mg PO BEDTIME PRN PRN Reason: Insomnia Allergies Allergies Allergy/AdvReac Type Severity Reaction Status Date / Time metoclopramide [From Reglan] Allergy Muscle Verified 12/06/20 07:02 cramps haloperidol [From Haldol] AdvReac Severe Dystonia Verified 12/16/20 08:24 sucralfate [From Carafate] AdvReac Severe vomiting Verified 12/16/20 08:23 Assessment & Plan Assessment & Plan (1) Schizoaffective disorder, bipolar type: Status: Acute Code(s): F25.0 - Schizoaffective disorder, bipolar type (2) Abnormal EEG: Status: Acute Code(s): R94.01 - Abnormal electroencephalogram [EEG] (3) IBS (irritable bowel syndrome): Status: Acute Code(s): K58.9 - Irritable bowel syndrome without diarrhea Assessment and Plan: IMPRESSION: Pt is a 25 y.o. Female who carries a diagnosis of schizoaffective disorder. She has a hx of [facility] for paranoid delusional thought content and depression. Had OP services at [facility] but stopped taking medications and has been thus been decompensating. Crisis/ED reports family is afraid of patients aggressive behaviors, reports neglecting self care, not eating, not sleeping... Currently Pt is refusing PO medications at this time, may be interested in IM zyprexa.? Currently patient does not want male provider and effort is being made to see if she can be switched to female provider.? Patient admitted for safety and medication management Plan: Patient signed CV; patient then signed 3 day notice Q 15 minutes checks for safety Will work on switching to female provider Patient refusing p.o. meds Patient may be open to taking Zyprexa intramuscularly Will obtain collateral from family 12/10/20: Collateral contact with [facility] MRI- MRCP negative on 10/08/20-Pt provided with a copy of this. Message left for Dr. Mart of [facility] [phone] to discuss GI plan of care and if pt needs a consult while admitted. Nutritional eval ordered Pt declines contact with family and providers TDN expires 12/11/20. Pt informed I will proceed with request for commitment and asked to reconsider remaining here so we may re-establish her medications safely with consultation from her GI team, which cannot all be accomplished by 12/11. She will consider. She has made no decision on meds yet. 12/11/20 Care discussed with pt's father Section VII filed. GI consult appreciated. Continue evaluation. 12/12/20 Continue eval Pt given information on IM Olanzapine for review. 12/13/20: No change to the above plans 12/14/20: No changes to the current plan 12/15/20: Encourage pt to trial IM Olanzapine. 12/16/20:? Court date continued to Dec ? Dr. Gomez has suggested a trial of Lansoprazole 30 mg dissolvable which was ordered. 12/17/20: Offer Lansoprazole when available, if effective PO atypicals ? Pt will accept IM Haldol-however, 3 reports indicated hx of significant dystonic reaction (father-a physician, [facility], and psychiatrist-[facility] records unable to be accessed). Continue to offer Olanzapine. 12/18/20: Pt has had two doses of IM olanzapine, tolerating it well. Continues to present with paranoia, internally preoccupied, irritable. She is willing to trial increased sublingual zofran to 8 mg BID PRN for continued GI distress. Had neuro consult, much appreciated, recent abnormal EEG suggesting mild left temporal slowing. There was no clinical or EEG evidence of seizure disorder.? Noncontrast head CT was okay.? Examination was nonfocal.?Dr. Vasquez recommend obtaining an MRI of brain with and without contrast to rule out any focal lesion explaining this abnormality. This type of abnormality could also be nonspecific. 12/19/20 Pt has declined MRI Lansoprazole 30 mg initiated and tolerate Repeat nutrition consult ordered. 12/21; Ct plan 12/22/20: Attempted to discuss plan of care with pt/medications/goals. Pt refuses. Continue Olanzapine Court 12/25/20. 12/23/20: Team reports pt is more visable in milieu and less agitated. Court 12/25/20. 12/24/20: Some increased appropriate interaction noted and milieu tolerance. Court 12/25/20. 12/25/20: Court hearing is continued without a finding. Family is working with [facility] on possible options for pt. They report pt currently has no options. Pt tentatively planning discharge to a hotel. Court decision pending. 12/26/20: Court decision pending. Continue current plan. 12/28/2020: No changes to primary team treatment plan 12/29/20: Continue current plan. Court decision is still pending. I spent 15 minutes with the patient and/or on the patient floor today, greater t swain?50% of which was spent counseling/coordinating care. Informed Consent: further education needed Reason for contiued inpatient stay Substantial Risk for: harm to self, harm to others, inability to function and rapid decompensation
[2020-12-30 06:00] VITALS: BP 110/76; PULSE 83; RESP 18; TEMP 36.5; O2SAT 100
[2020-12-30] MEDS: OLANZapine 10 MG VIAL IM (08:01)
[2020-12-30 18:00] VITALS: BP 126/60; PULSE 94; TEMP 36.2; O2SAT 100
--- NOTE | 2020-12-30 20:43 | P.PNPSI_ITS ---
Subjective Subjective Date of Service: 12/30/20 Reason For Visit: Schizoaffective Disorder Subjective Notes: Section 7 Healthcare Proxy: No Guardianship: No Medical Problems Affecting Mental Status: No Interim History: Discussed with Delaney that family will not be able to have her at home if she is not treated properly. Pt reports she plans to get her car and go to a hotel. She will accept a daily IM and will accept an aftercare referral. Discussed respite/crisis stab (she declines) and signing in to the unit (she declines). I am good, I don't need medicine. Medication Compliance: Yes Side effects from medications: No Attending Groups: Intermittent Review of Systems Acute medical concerns: No Medical Review of Systems: unchanged Review of Systems Reports behavioral changes Psychiatric: Reports behavioral changes, Reports mood swings and Reports paranoia Mental Status Exam Mental Status Exam Patient Appearance: Malodorous Patient Orientation: Person, Place and Situation Level of Consciousness: Alert Patient Behavior: Guarded, Suspicious, Aggressive (verbally), Belligerent, Resistive to Care, Avoidant, Distractible, Isolative and Uncooperative Mood Description: Constricted Affect Description: Constricted Patient Cognition Impaired: Yes Ability to Follow Directions: Fair Speech Pattern: Perseverating and Spontaneous Speech Memory Description: Remote Impaired and Episodic Impaired Delusions: Paranoid Ideation Thought Process: Illogical Thought Content: positive for [place], positive for Circumstantial, positive for Preoccupation and positive for Thought Blocking Depressive Symptoms: Increased Irritability and Isolating-Friends/Family Abnormal Motor Activity Signs and Symptoms: Agitation Judgement: Poor Diagnostics Vital Signs (24Hr): Vital Signs - 24 hr 12/30/20 06:00 12/30/20 18:00 Temperature 97.7 F 97.2 F Pulse Rate 83 94 Respiratory Rate 18 Blood Pressure 110/76 126/60 Pulse Oximetry 100 100 Body Mass Index 29.2 Labs Results: 12/29/20 08:06 12/29/20 08:06 Labs: Laboratory Results - last 48 hr 12/29/20 12/29/20 08:06 08:06 WBC 5.6 RBC 3.70 L Hgb 11.6 L Hct 35.5 L MCV 95.9 MCH 31.4 MCHC 32.7 RDW 14.4 Plt Count 391 MPV 9.1 L Immature Gran % (Auto) 0.2 Neut % (Auto) 54.4 Lymph % (Auto) 33.5 [place] % (Auto) 9.5 Eos % (Auto) 2.2 Baso % (Auto) 0.2 Lymph # (Auto) 1.9 [place] # (Auto) 0.5 Eos # (Auto) 0.1 Baso # (Auto) 0.0 Abs Immat Gran (auto) 0.01 Absolute Neuts (auto) 3.0 Absolute Nucleated RBC 0.000 Nucleated RBC % (auto) 0.0 Sodium 139 Potassium 4.8 D Chloride 105 Carbon Dioxide 27 Anion Gap 12 BUN 7 L Creatinine 0.66 Estim Creat Clear Calc 130.9 Estimated GFR > 60 Random Glucose 86 Calcium 9.2 Total Bilirubin 0.4 AST 22 ALT 31 Alkaline Phosphatase 75 D Total Protein 6.6 Albumin 3.9 Medications Medications Current Medications Acetaminophen (Acetaminophen 325 Mg Tablet) 650 mg PO Q6H PRN PRN Reason: Headache/Pain Mild Scale (1-3) Al Hydroxide/Mg Hydroxide (Magnesium Hydrox/Alum Hydrox 30 Ml Oral.Susp) 30 ml PO Q6H PRN PRN Reason: Heartburn/Nausea Benztropine Mesylate (Benztropine Mesylate 1 Mg Tablet) 1 mg PO TID PRN PRN Reason: Extrapyramidal Effects Hydroxyzine HCl (Hydroxyzine Hcl 25 Mg Tablet) 25 mg PO BEDTIME PRN PRN Reason: Anxiety Magnesium Hydroxide (Milk Of Magnesia 30 Ml Oral.Susp) 30 ml PO DAILY PRN PRN Reason: Constipation Pt Own Med ( (Lansoprazole 30 Mg)) 1 each PO DAILY@0630 [facility] Last Admin: 12/30/20 06:28 Dose: Not Given Documented by: Olanzapine (Olanzapine 10 Mg Vial) 10 mg IM DAILY [facility] Last Admin: 12/30/20 08:01 Dose: 10 mg Documented by: Ondansetron HCl (Ondansetron Odt 4 Mg Tab.Rapdis) 8 mg TRANSLINGU Q8H PRN PRN Reason: Nausea Last Admin: 12/19/20 08:36 Dose: 8 mg Documented by: Pharmacy Consult (Consult Rx Perform Med Rec) 1 each MISCELLANE ONCE PRN PRN Reason: Consult order Trazodone HCl (Trazodone Hcl 50 Mg Tablet) 50 mg PO BEDTIME PRN PRN Reason: Insomnia Allergies Allergies Allergy/AdvReac Type Severity Reaction Status Date / Time metoclopramide [From Reglan] Allergy Muscle Verified 12/06/20 07:02 cramps haloperidol [From Haldol] AdvReac Severe Dystonia Verified 12/16/20 08:24 sucralfate [From Carafate] AdvReac Severe vomiting Verified 12/16/20 08:23 Assessment & Plan Assessment & Plan (1) Schizoaffective disorder, bipolar type: Status: Acute Code(s): F25.0 - Schizoaffective disorder, bipolar type (2) Abnormal EEG: Status: Acute Code(s): R94.01 - Abnormal electroencephalogram [EEG] (3) IBS (irritable bowel syndrome): Status: Acute Code(s): K58.9 - Irritable bowel syndrome without diarrhea Assessment and Plan: IMPRESSION: Pt is a 25 y.o. Female who carries a diagnosis of schizoaffective disorder. She has a hx of [facility] for paranoid delusional thought content and depression. Had OP services at [facility] but stopped taking medications and has been thus been decompensating. Crisis/ED reports family is afraid of patients aggressive behaviors, reports neglecting self care, not eating, not sleeping... Currently Pt is refusing PO medications at this time, may be interested in IM zyprexa.? Currently patient does not want male provider and effort is being made to see if she can be switched to female provider.? Patient admitted for safety and medication management Plan: Patient signed CV; patient then signed 3 day notice Q 15 minutes checks for safety Will work on switching to female provider Patient refusing p.o. meds Patient may be open to taking Zyprexa intramuscularly Will obtain collateral from family 12/10/20: Collateral contact with [facility] MRI- MRCP negative on 10/08/20-Pt provided with a copy of this. Message left for Dr. Mart of [facility] [phone] to discuss GI plan of care and if pt needs a consult while admitted. Nutritional eval ordered Pt declines contact with family and providers TDN expires 12/11/20. Pt informed I will proceed with request for commitment and asked to reconsider remaining here so we may re-establish her medications safely with consultation from her GI team, which cannot all be accomplished by 12/11. She will consider. She has made no decision on meds yet. 12/11/20 Care discussed with pt's father Section VII filed. GI consult appreciated. Continue evaluation. 12/12/20 Continue eval Pt given information on IM Olanzapine for review. 12/13/20: No change to the above plans 12/14/20: No changes to the current plan 12/15/20: Encourage pt to trial IM Olanzapine. 12/16/20:? Court date continued to Dec ? Dr. Gomez has suggested a trial of Lansoprazole 30 mg dissolvable which was ordered. 12/17/20: Offer Lansoprazole when available, if effective PO atypicals ? Pt will accept IM Haldol-however, 3 reports indicated hx of significant dystonic reaction (father-a physician, [employer] [facility], and psychiatrist-[facility] records unable to be accessed). Continue to offer Olanzapine. 12/18/20: Pt has had two doses of IM olanzapine, tolerating it well. Continues to present with paranoia, internally preoccupied, irritable. She is willing to trial increased sublingual zofran to 8 mg BID PRN for continued GI distress. Had neuro consult, much appreciated, recent abnormal EEG suggesting mild left temporal slowing. There was no clinical or EEG evidence of seizure disorder.? N oncontrast head CT was okay.? Examination was nonfocal.?Dr. Vasquez recommend obtaining an MRI of brain with and without contrast to rule out any focal lesion explaining this abnormality. This type of abnormality could also be nonspecific. 12/19/20 Pt has declined MRI Lansoprazole 30 mg initiated and tolerate Repeat nutrition consult ordered. 12/21; Ct plan 12/22/20: Attempted to discuss plan of care with pt/medications/goals. Pt refuses. Continue Olanzapine Court 12/25/20. 12/23/20: Team reports pt is more visable in milieu and less agitated. Court 12/25/20. 12/24/20: Some increased appropriate interaction noted and milieu tolerance. Court 12/25/20. 12/25/20: Court hearing is continued without a finding. Family is working with [facility] on possible options for pt. They report pt currently has no options. Pt tentatively planning discharge to a hotel. Court decision pending. 12/26/20: Court decision pending. Continue current plan. 12/28/2020: No changes to primary team treatment plan 12/29/20: Continue current plan. Court decision is still pending. 12/30/20: No court decision yet. Encouraged pt to begin to look at options to continue her treatment. Family is doing the same. I spent 15 minutes with the patient and/or on the patient floor today, greater than?50% of which was spent counseling/coordinating care. Patient educated on: medication risk/benefits and therapeutic strategies Informed Consent: further education needed Reason for contiued inpatient stay Substantial Risk for: harm to self, harm to others, inability to function and rapid decompensation
[2020-12-31 06:00] VITALS: BP 110/71; PULSE 126; RESP 18; TEMP 37; O2SAT 99
[2020-12-31] MEDS: OLANZapine 10 MG VIAL IM (09:47)
--- NOTE | 2020-12-31 17:02 | PC.NURSE ---
Pt is aware of discharge. Pt plans to utilize community services and coping skills learnt here. Denies SI/HI, plan or intent to harm herself or others. Pt verbalize understanding of discharge instructions. She denies physical complaint. Meds sent to [facility]. Appointment for injection tomorrow at 1030 am with PCP office scheduled.
--- NOTE | 2020-12-31 18:34 | HO.PSYCHPN ---
Subjective Subjective Date of Service: 12/31/20 Reason For Visit: Schizoaffective Disorder Subjective Notes: Conditional Voluntary Healthcare Proxy: No Guardianship: No Medical Problems Affecting Mental Status: No Interim History: The court has decided to release pt from her Section VII. In discussion with pt and parents pt decided to sign herself in on CV and continue her treatment. She continues to decline PO medications, stating her GI tract cannot tolerate these and she needs IM. PRITCEHTT discussed with pt-she is on board, but will not do a PO trial-only an IR IM trial. We have initiated a pharmacy search for Abilify IR IM 9.75/1.3 ml with [place], [facility] and [facility]. Medication Compliance: Yes Side effects from medications: No Attending Groups: Yes Review of Systems Acute medical concerns: No Medical Review of Systems: unchanged Review of Systems Reports behavioral changes Psychiatric: Reports behavioral changes, Reports mood swings and Reports paranoia Mental Status Exam Mental Status Exam Patient Appearance: Malodorous Patient Orientation: Person, Place and Situation Level of Consciousness: Alert Patient Behavior: Guarded, Suspicious, Aggressive (verbally), Belligerent, Resistive to Care, Avoidant, Distractible, Isolative and Uncooperative Mood Description: Constricted Affect Description: Constricted Patient Cognition Impaired: Yes Ability to Follow Directions: Fair Speech Pattern: Perseverating and Spontaneous Speech Memory Description: Remote Impaired and Episodic Impaired Delusions: Paranoid Ideation Thought Process: Illogical Thought Content: positive for [place], positive for Circumstantial, positive for Preoccupation and positive for Thought Blocking Depressive Symptoms: Increased Irritability and Isolating-Friends/Family Abnormal Motor Activity Signs and Symptoms: Agitation Judgement: Poor Diagnostics Vital Signs (24Hr): Vital Signs - 24 hr 12/31/20 06:00 Temperature 98.6 F Pulse Rate 126 H Respiratory Rate 18 Blood Pressure 110/71 Pulse Oximetry 99 Body Mass Index 29.2 Labs Results: 12/29/20 08:06 12/29/20 08:06 Medications Medications Current Medications Acetaminophen (Acetaminophen 325 Mg Tablet) 650 mg PO Q6H PRN PRN Reason: Headache/Pain Mild Scale (1-3) Al Hydroxide/Mg Hydroxide (Magnesium Hydrox/Alum Hydrox 30 Ml Oral.Susp) 30 ml PO Q6H PRN PRN Reason: Heartburn/Nausea Benztropine Mesylate (Benztropine Mesylate 1 Mg Tablet) 1 mg PO TID PRN PRN Reason: Extrapyramidal Effects Hydroxyzine HCl (Hydroxyzine Hcl 25 Mg Tablet) 25 mg PO BEDTIME PRN PRN Reason: Anxiety Magnesium Hydroxide (Milk Of Magnesia 30 Ml Oral.Susp) 30 ml PO DAILY PRN PRN Reason: Constipation Pt Own Med ( (Lansoprazole 30 Mg)) 1 each PO DAILY@0630 [facility] Last Admin: 12/31/20 08:05 Dose: Not Given Documented by: Olanzapine (Olanzapine 10 Mg Vial) 10 mg IM DAILY [facility] Last Admin: 12/31/20 09:47 Dose: 10 mg Documented by: Ondansetron HCl (Ondansetron Odt 4 Mg Tab.Rapdis) 8 mg TRANSLINGU Q8H PRN PRN Reason: Nausea Last Admin: 12/19/20 08:36 Dose: 8 mg Documented by: Pharmacy Consult (Consult Rx Perform Med Rec) 1 each MISCELLANE ONCE PRN PRN Reason: Consult order Trazodone HCl (Trazodone Hcl 50 Mg Tablet) 50 mg PO BEDTIME PRN PRN Reason: Insomnia Allergies Allergies Allergy/AdvReac Type Severity Reaction Status Date / Time metoclopramide [From Reglan] Allergy Muscle Verified 12/06/20 07:02 cramps haloperidol [From Haldol] AdvReac Severe Dystonia Verified 12/16/20 08:24 sucralfate [From Carafate] AdvReac Severe vomiting Verified 12/16/20 08:23 Assessment & Plan Assessment & Plan (1) Schizoaffective disorder, bipolar type: Status: Acute Code(s): F25.0 - Schizoaffective disorder, bipolar type (2) Abnormal EEG: Status: Acute Code(s): R94.01 - Abnormal electroencephalogram [EEG] (3) IBS (irritable bowel syndrome): Status: Acute Code(s): K58.9 - Irritable bowel syndrome without diarrhea Assessment and Plan: IMPRESSION: Pt is a 25 y.o. Female who carries a diagnosis of schizoaffective disorder. She has a hx of [facility] for paranoid delusional thought content and depression. Had OP services at [facility] but stopped taking medications and has been thus been decompensating. Crisis/ED reports family is afraid of patients aggressive behaviors, reports neglecting self care, not eating, not sleeping... Currently Pt is refusing PO medications at this time, may be interested in IM zyprexa.? Currently patient does not want male provider and effort is being made to see if she can be switched to female provider.? Patient admitted for safety and medication management Plan: Patient signed CV; patient then signed 3 day notice Q 15 minutes checks for safety Will work on switching to female provider Patient refusing p.o. meds Patient may be open to taking Zyprexa intramuscularly Will obtain collateral from family 12/10/20: Collateral contact with [facility] MRI- MRCP negative on 10/08/20-Pt provided with a copy of this. Message left for Dr. Mart of [facility] [phone] to discuss GI plan of care and if pt needs a consult while admitted. Nutritional eval ordered Pt declines contact with family and providers TDN expires 12/11/20. Pt informed I will proceed with request for commitment and asked to reconsider remaining here so we may re-establish her medications safely with consultation from her GI team, which cannot all be accomplished by 12/11. She will consider. She has made no decision on meds yet. 12/11/20 Care discussed with pt's father Section VII filed. GI consult appreciated. Continue evaluation. 12/12/20 Continue eval Pt given information on IM Olanzapine for review. 12/13/20: No change to the above plans 12/14/20: No changes to the current plan 12/15/20: Encourage pt to trial IM Olanzapine. 12/16/20:? Court date continued to Dec ? Dr. Gomez has suggested a trial of Lansoprazole 30 mg dissolvable which was ordered. 12/17/20: Offer Lansoprazole when available, if effective PO atypicals ? Pt will accept IM Haldol-however, 3 reports indicated hx of significant dystonic reaction (father-a physician, [employer] [facility], and psychiatrist-[facility] records unable to be accessed). Continue to offer Olanzapine. 12/18/20: Pt has had two doses of IM olanzapine, tolerating it well. Continues to present with paranoia, internally preoccupied, irritable. She is willing to trial increased sublingual zofran to 8 mg BID PRN for continued GI distress. Had neuro consult, much appreciated, recent abnormal EEG suggesting mild left temporal slowing. There was no clinical or EEG evidence of seizure disorder.? Noncontrast head CT was okay.? Examination was nonfocal.?Dr. Vasquez recommend obtaining an MRI of brain with and without contrast to rule out any focal lesion explaining this abnormality. This type of abnormality could also be nonspecific. 12/19/20 Pt has declined MRI Lansoprazole 30 mg initiated and tolerate Repeat nutrition consult ordered. 12/21; Ct plan 12/22/20: Attempted to discuss plan of care with pt/medications/goals. Pt refuses. Continue Olanzapine Court 12/25/20. 12/23/20: Team reports pt is more visable in milieu and less agitated. Court 12/25/20. 12/24/20: Some increased appropriate interaction noted and milieu tolerance. Court 12/25/20. 12/25/20: Court hearing is continued without a finding. Family is working with [facility] on possible options for pt. They report pt currently has no options. Pt tentatively planning discharge to a hotel. Court decision pending. 12/26/20: Court decision pending. Continue current plan. 12/28/2020: No changes to primary team treatment plan 12/29/20: Continue current plan. Court decision is still pending. 12/30/20: No court decision yet. Encouraged pt to begin to look at options to continue her treatment. Family is doing the same. 12/31/20: Pt has been released by the court from her Section VII. She has made a choice to remain in treatment and we are working on a trial of PRITCHETT Abilify Aristada, as recommended by her out pt prescribing team. She agrees with this plan, however, will not agree to do a 2 day PO trial of Abilify, therefore we are searching for Abilify IR IM 9.75/1.3 ml with local pharmacies to complete trial to establish tolerance. I spent 120 minutes with the patient and/or on the patient floor today, greater than?50% of which was spent counseling/coordinating care. Patient educated on: medication risk/benefits Informed Consent: further education needed Reason for contiued inpatient stay Substantial Risk for: harm to self, harm to others, inability to function and rapid decompensation
[2021-01-01] MEDS: OLANZapine 10 MG VIAL IM (08:18)
--- NOTE | 2021-01-01 17:26 | HO.PSYCHPN ---
Subjective Subjective Date of Service: 01/01/21 Reason For Visit: Schizoaffective Disorder Subjective Notes: Conditional Voluntary Healthcare Proxy: No Guardianship: No Medical Problems Affecting Mental Status: No Interim History: Discussed with pt our inability to secure Abilify IR IM for 2 day trial to establish tolerance. Pt not wanting to do a PO trial. Discussed options. She will consider and discuss with her parents. Medication Compliance: Yes Side effects from medications: No Attending Groups: Yes Review of Systems Acute medical concerns: No Medical Review of Systems: unchanged Review of Systems Reports behavioral changes Psychiatric: Reports behavioral changes, Reports mood swings and Reports paranoia Mental Status Exam Mental Status Exam Patient Appearance: Malodorous Patient Orientation: Person, Place and Situation Level of Consciousness: Alert Patient Behavior: Guarded, Suspicious, Aggressive (verbally), Belligerent, Resistive to Care, Avoidant, Distractible, Isolative and Uncooperative Mood Description: Constricted Affect Description: Constricted Patient Cognition Impaired: Yes Ability to Follow Directions: Fair Speech Pattern: Perseverating and Spontaneous Speech Memory Description: Remote Impaired and Episodic Impaired Delusions: Paranoid Ideation Thought Process: Illogical Thought Content: positive for [place], positive for Circumstantial, positive for Preoccupation and positive for Thought Blocking Depressive Symptoms: Increased Irritability and Isolating-Friends/Family Abnormal Motor Activity Signs and Symptoms: Agitation Judgement: Poor Diagnostics Vital Signs (24Hr): Body Mass Index 29.2 Labs Results: 12/29/20 08:06 12/29/20 08:06 Medications Medications Current Medications Acetaminophen (Acetaminophen 325 Mg Tablet) 650 mg PO Q6H PRN PRN Reason: Headache/Pain Mild Scale (1-3) Al Hydroxide/Mg Hydroxide (Magnesium Hydrox/Alum Hydrox 30 Ml Oral.Susp) 30 ml PO Q6H PRN PRN Reason: Heartburn/Nausea Benztropine Mesylate (Benztropine Mesylate 1 Mg Tablet) 1 mg PO TID PRN PRN Reason: Extrapyramidal Effects Hydroxyzine HCl (Hydroxyzine Hcl 25 Mg Tablet) 25 mg PO BEDTIME PRN PRN Reason: Anxiety Magnesium Hydroxide (Milk Of Magnesia 30 Ml Oral.Susp) 30 ml PO DAILY PRN PRN Reason: Constipation Pt Own Med ( (Lansoprazole 30 Mg)) 1 each PO DAILY@0630 [facility] Last Admin: 01/01/21 07:48 Dose: Not Given Documented by: Olanzapine (Olanzapine 10 Mg Vial) 10 mg IM DAILY [facility] Last Admin: 01/01/21 08:18 Dose: 10 mg Documented by: Ondansetron HCl (Ondansetron Odt 4 Mg Tab.Rapdis) 8 mg TRANSLINGU Q8H PRN PRN Reason: Nausea Last Admin: 12/19/20 08:36 Dose: 8 mg Documented by: Pharmacy Consult (Consult Rx Perform Med Rec) 1 each MISCELLANE ONCE PRN PRN Reason: Consult order Trazodone HCl (Trazodone Hcl 50 Mg Tablet) 50 mg PO BEDTIME PRN PRN Reason: Insomnia Allergies Allergies Allergy/AdvReac Type Severity Reaction Status Date / Time metoclopramide [From Reglan] Allergy Muscle Verified 12/06/20 07:02 cramps haloperidol [From Haldol] AdvReac Severe Dystonia Verified 12/16/20 08:24 sucralfate [From Carafate] AdvReac Severe vomiting Verified 12/16/20 08:23 Assessment & Plan Assessment & Plan (1) Schizoaffective disorder, bipolar type: Status: Acute Code(s): F25.0 - Schizoaffective disorder, bipolar type (2) Abnormal EEG: Status: Acute Code(s): R94.01 - Abnormal electroencephalogram [EEG] (3) IBS (irritable bowel syndrome): Status: Acute Code(s): K58.9 - Irritable bowel syndrome without diarrhea Assessment and Plan: IMPRESSION: Pt is a 25 y.o. Female who carries a diagnosis of schizoaffective disorder. She has a hx of [facility] for paranoid delusional thought content and depression. Had OP services at [facility] but stopped taking medications and has been thus been decompensating. Crisis/ED reports family is afraid of patients aggressive behaviors, reports neglecting self care, not eating, not sleeping... Currently Pt is refusing PO medications at this time, may be interested in IM zyprexa.? Currently patient does not want male provider and effort is being made to see if she can be switched to female provider.? Patient admitted for safety and medication management Plan: Patient signed CV; patient then signed 3 day notice Q 15 minutes checks for safety Will work on switching to female provider Patient refusing p.o. meds Patient may be open to taking Zyprexa intramuscularly Will obtain collateral from family 12/10/20: Collateral contact with [facility] MRI- MRCP negative on 10/08/20-Pt provided with a copy of this. Message left for Dr. Mart of [facility] [phone] to discuss GI plan of care and if pt needs a consult while admitted. Nutritional eval ordered Pt declines contact with family and providers TDN expires 12/11/20. Pt informed I will proceed with request for commitment and asked to reconsider remaining here so we may re-establish her medications safely with consultation from her GI team, which cannot all be accomplished by 12/11. She will consider. She has made no decision on meds yet. 12/11/20 Care discussed with pt's father Section VII filed. GI consult appreciated. Continue evaluation. 12/12/20 Continue eval Pt given information on IM Olanzapine for review. 12/13/20: No change to the above plans 12/14/20: No changes to the current plan 12/15/20: Encourage pt to trial IM Olanzapine. 12/16/20:? Court date continued to Dec ? Dr. Gomez has suggested a trial of Lansoprazole 30 mg dissolvable which was ordered. 12/17/20: Offer Lansoprazole when available, if effective PO atypicals ? Pt will accept IM Haldol-however, 3 reports indicated hx of significant dystonic reaction (father-a physician, [facility], and psychiatrist-[facility] records unable to be accessed). Continue to offer Olanzapine. 12/18/20: Pt has had two doses of IM olanzapine, tolerating it well. Continues to present with paranoia, internally preoccupied, irritable. She is willing to trial increased sublingual zofran to 8 mg BID PRN for continued GI distress. Had neuro consult, much appreciated, recent abnormal EEG suggesting mild left temporal slowing. There was no clinical or EEG evidence of seizure disorder.? Noncontrast head CT was okay.? Examination was nonfocal.?Dr. Vasquez recommend obtaining an MRI of brain with and without contrast to rule out any focal lesion explaining this abnormality. This type of abnormality could also be nonspecific. 12/19/20 Pt has declined MRI Lansoprazole 30 mg initiated and tolerate Repeat nutrition consult ordered. 12/21; Ct plan 12/22/20: Attempted to discuss plan of care with pt/medications/goals. Pt refuses. Continue Olanzapine Court 12/25/20. 12/23/20: Team reports pt is more visable in milieu and less agitated. Court 12/25/20. 12/24/20: Some increased appropriate interaction noted and milieu tolerance. Court 12/25/20. 12/25/20: Court hearing is continued without a finding. Family is working with [facility] on possible options for pt. They report pt currently has no options. Pt tentatively planning discharge to a hotel. Court decision pending. 12/26/20: Court decision pending. Continue current plan. 12/28/2020: No changes to primary team treatment plan 12/29/20: Continue current plan. Court decision is still pending. 12/30/20: No court decision yet. Encouraged pt to begin to look at options to continue her treatment. Family is doing the same. 01/01/21: Abilify IR IM is no longer available-there is a supply in [place] and a small supply caught up in the shipping industry issue-pharmacy supplier believes a small supply to be on a barge in the [place]. Pt, at this time is not willing to do a 2 day PO Abilify trial to establish tolerance for Maintena or Aristada, however is considering options and discussing with her family. Continue current Olanzapine. I spent 60 minutes with the patient and/or on the patient floor today, greater than?50% of which was spent counseling/coordinating care. Patient educated on: medication risk/benefits Informed Consent: understands and further education needed Reason for contiued inpatient stay Substantial Risk for: harm to self, harm to others, inability to function and rapid decompensation
[2021-01-01 18:00] VITALS: BP 109/57; PULSE 94; RESP 16; TEMP 36.8; O2SAT 100
[2021-01-02 06:00] VITALS: BP 117/69; PULSE 102; RESP 16; TEMP 36.8; O2SAT 100
[2021-01-02] MEDS: OLANZapine 10 MG VIAL IM (08:36)
--- NOTE | 2021-01-02 10:45 | P.PNPSI_ITS ---
Subjective Subjective Date of Service: 01/02/21 Reason For Visit: Schizoaffective Disorder Subjective Notes: Conditional Voluntary Healthcare Proxy: No Guardianship: No Medical Problems Affecting Mental Status: No Interim History: Pt is visable in milieu and engaged. She presents with less ang er and irritability. She continues to contemplate a 2 day PO Abilify trial to establish tolerance for Maintena/Aristada trial. Family is talking with her to assist her in decision making. As of late this afternoon she is considering this with GI support for the 2 day trial. Medication Compliance: Yes Side effects from medications: No Attending Groups: Yes Review of Systems Acute medical concerns: No Medical Review of Systems: unchanged Review of Systems Reports behavioral changes Psychiatric: Reports behavioral changes, Reports mood swings and Reports paranoia Mental Status Exam Mental Status Exam Patient Appearance: Malodorous Patient Orientation: Person, Place and Situation Level of Consciousness: Alert Patient Behavior: Guarded, Suspicious, Aggressive (verbally), Belligerent, Resistive to Care, Avoidant, Distractible, Isolative and Uncooperative Mood Description: Constricted Affect Description: Constricted Patient Cognition Impaired: Yes Ability to Follow Directions: Fair Speech Pattern: Perseverating and Spontaneous Speech Memory Description: Remote Impaired and Episodic Impaired Delusions: Paranoid Ideation Thought Process: Illogical Thought Content: positive for [place], positive for Circumstantial, positive for Preoccupation and positive for Thought Blocking Depressive Symptoms: Increased Irritability and Isolating-Friends/Family Abnormal Motor Activity Signs and Symptoms: Agitation Judgement: Poor Diagnostics Vital Signs (24Hr): Vital Signs - 24 hr 01/01/21 18:00 01/02/21 06:00 Temperature 98.2 F 98.3 F Pulse Rate 94 102 H Respiratory Rate 16 16 Blood Pressure 109/57 L 117/69 Pulse Oximetry 100 100 Body Mass Index 29.2 Labs Results: 12/29/20 08:06 12/29/20 08:06 Medications Medications Current Medications Acetaminophen (Acetaminophen 325 Mg Tablet) 650 mg PO Q6H PRN PRN Reason: Headache/Pain Mild Scale (1-3) Al Hydroxide/Mg Hydroxide (Magnesium Hydrox/Alum Hydrox 30 Ml Oral.Susp) 30 ml PO Q6H PRN PRN Reason: Heartburn/Nausea Benztropine Mesylate (Benztropine Mesylate 1 Mg Tablet) 1 mg PO TID PRN PRN Reason: Extrapyramidal Effects Hydroxyzine HCl (Hydroxyzine Hcl 25 Mg Tablet) 25 mg PO BEDTIME PRN PRN Reason: Anxiety Magnesium Hydroxide (Milk Of Magnesia 30 Ml Oral.Susp) 30 ml PO DAILY PRN PRN Reason: Constipation Pt Own Med ( (Lansoprazole 30 Mg)) 1 each PO DAILY@0630 [facility] Last Admin: 01/02/21 08:36 Dose: Not Given Documented by: Olanzapine (Olanzapine 10 Mg Vial) 10 mg IM DAILY [facility] Last Admin: 01/02/21 08:36 Dose: 10 mg Documented by: Ondansetron HCl (Ondansetron Odt 4 Mg Tab.Rapdis) 8 mg TRANSLINGU Q8H PRN PRN Reason: Nausea Last Admin: 12/19/20 08:36 Dose: 8 mg Documented by: Pharmacy Consult (Consult Rx Perform Med Rec) 1 each MISCELLANE ONCE PRN PRN Reason: Consult order Trazodone HCl (Trazodone Hcl 50 Mg Tablet) 50 mg PO BEDTIME PRN PRN Reason: Insomnia Allergies Allergies Allergy/AdvReac Type Severity Reaction Status Date / Time metoclopramide [From Reglan] Allergy Muscle Verified 12/06/20 07:02 cramps haloperidol [From Haldol] AdvReac Severe Dystonia Verified 12/16/20 08:24 sucralfate [From Carafate] AdvReac Severe vomiting Verified 12/16/20 08:23 Assessment & Plan Assessment & Plan (1) Schizoaffective disorder, bipolar type: Status: Acute Code(s): F25.0 - Schizoaffective disorder, bipolar type (2) Abnormal EEG: Status: Acute Code(s): R94.01 - Abnormal electroencephalogram [EEG] (3) IBS (irritable bowel syndrome): Status: Acute Code(s): K58.9 - Irritable bowel syndrome without diarrhea Assessment and Plan: 01/02/21: Continue current regime On 01/05 probable 2 day trial of Abilify po with GI med support to establish tolerance for Maintena/Aristada trial. I spent 30 minutes with the patient and/or on the patient floor today, greater than?50% of which was spent counseling/coordinating care. Informed Consent: further education needed Reason for contiued inpatient stay Substantial Risk for: harm to self, harm to others, inability to function and rapid decompensation
[2021-01-03 06:00] VITALS: BP 95/52; PULSE 92; RESP 18; TEMP 36.3; O2SAT 100
[2021-01-03] MEDS: OLANZapine 10 MG VIAL IM (09:07)
--- NOTE | 2021-01-03 10:03 | P.PNPSI_ITS ---
Subjective Subjective Date of Service: 01/03/21 Reason For Visit: Schizoaffective Disorder Subjective Notes: Conditional Voluntary Medical Problems Affecting Mental Status: No Interim History: Patient was seen in rounds today and discussed. Records and treatment plan reviewed. Labs are reviewed. He continues to be somewhat irritable. Denies any symptoms of anxiety or depression. He is med compliant. Eating and sleeping adequately. He has been requesting to get his Zyprexa daily as an IM injection. He generally is feeling better. He denies any side effects. No changes were made today. Side effects from medications: Yes Attending Groups: Yes Review of Systems Acute medical concerns: No Review of Systems Review of Systems Yes all other systems are reviewed and are negative Mental Status Exam Mental Status Exam Patient Appearance: Malodorous Patient Orientation: Person, Place and Situation Level of Consciousness: Alert Patient Behavior: Guarded, Suspicious, Aggressive (verbally), Belligerent, Resistive to Care, Avoidant, Distractible, Isolative and Uncooperative Mood Description: Constricted Affect Description: Constricted Patient Cognition Impaired: Yes Ability to Follow Directions: Fair Speech Pattern: Perseverating and Spontaneous Speech Memory Description: Remote Impaired and Episodic Impaired Delusions: Paranoid Ideation Thought Process: Illogical Thought Content: positive for [place], positive for Circumstantial, positive for Preoccupation and positive for Thought Blocking Depressive Symptoms: Increased Irritability and Isolating-Friends/Family Abnormal Motor Activity Signs and Symptoms: Agitation Judgement: Poor Diagnostics Vital Signs (24Hr): Vital Signs - 24 hr 01/03/21 06:00 Temperature 97.4 F Pulse Rate 92 Respiratory Rate 18 Blood Pressure 95/52 L Pulse Oximetry 100 Body Mass Index 29.2 Labs Results: 12/29/20 08:06 12/29/20 08:06 Medications Medications Current Medications Acetaminophen (Acetaminophen 325 Mg Tablet) 650 mg PO Q6H PRN PRN Reason: Headache/Pain Mild Scale (1-3) Al Hydroxide/Mg Hydroxide (Magnesium Hydrox/Alum Hydrox 30 Ml Oral.Susp) 30 ml PO Q6H PRN PRN Reason: Heartburn/Nausea Benztropine Mesylate (Benztropine Mesylate 1 Mg Tablet) 1 mg PO TID PRN PRN Reason: Extrapyramidal Effects Hydroxyzine HCl (Hydroxyzine Hcl 25 Mg Tablet) 25 mg PO BEDTIME PRN PRN Reason: Anxiety Magnesium Hydroxide (Milk Of Magnesia 30 Ml Oral.Susp) 30 ml PO DAILY PRN PRN Reason: Constipation Pt Own Med ( (Lansoprazole 30 Mg)) 1 each PO DAILY@0630 [facility] Last Admin: 01/03/21 06:16 Dose: Not Given Documented by: Olanzapine (Olanzapine 10 Mg Vial) 10 mg IM DAILY [facility] Last Admin: 01/03/21 09:07 Dose: 10 mg Documented by: Ondansetron HCl (Ondansetron Odt 4 Mg Tab.Rapdis) 8 mg TRANSLINGU Q8H PRN PRN Reason: Nausea Last Admin: 12/19/20 08:36 Dose: 8 mg Documented by: Pharmacy Consult (Consult Rx Perform Med Rec) 1 each MISCELLANE ONCE PRN PRN Reason: Consult order Trazodone HCl (Trazodone Hcl 50 Mg Tablet) 50 mg PO BEDTIME PRN PRN Reason: Insomnia Allergies Allergies Allergy/AdvReac Type Severity Reaction Status Date / Time metoclopramide [From Reglan] Allergy Muscle Verified 12/06/20 07:02 cramps haloperidol [From Haldol] AdvReac Severe Dystonia Verified 12/16/20 08:24 sucralfate [From Carafate] AdvReac Severe vomiting Verified 12/16/20 08:23 Assessment & Plan Assessment & Plan (1) Schizoaffective disorder, bipolar type: Status: Acute Code(s): F25.0 - Schizoaffective disorder, bipolar type (2) Abnormal EEG: Status: Acute Code(s): R94.01 - Abnormal electroencephalogram [EEG] (3) IBS (irritable bowel syndrome): Status: Acute Code(s): K58.9 - Irritable bowel syndrome without diarrhea Assessment and Plan: 01/02/21: Continue current regime On 01/05 probable 2 day trial of Abilify po with GI med support to establish tolerance for Maintena/Aristada trial. I spent minutes with the patient and/or on the patient floor today, greater than?50% of which was spent counseling/coordinating care. Reason for contiued inpatient stay Substantial Risk for: other
[2021-01-03 19:20] VITALS: BP 111/80; PULSE 84; RESP 18; TEMP 36.3; O2SAT 98
[2021-01-04 06:00] VITALS: BP 133/81; PULSE 76; TEMP 36.4; O2SAT 100
[2021-01-04 06:58] VITALS: BP 114/75; PULSE 88; TEMP 36.4; O2SAT 100
--- NOTE | 2021-01-04 08:40 | P.PNPSI_ITS ---
Subjective Subjective Date of Service: 01/04/21 Reason For Visit: Schizoaffective Disorder Subjective Notes: Conditional Voluntary Interim History: Patient was seen in rounds today. He has been doing better. Records were reviewed. He has been more visible, pleasant but irritable at times. No complaints or side effects. Eating and sleeping adequately. No mcnally ges were made today Medication Compliance: Yes Side effects from medications: No Review of Systems Acute medical concerns: No Medical Review of Systems: changed Mental Status Exam Mental Status Exam Patient Appearance: Malodorous Patient Orientation: Person, Place and Situation Level of Consciousness: Alert Patient Behavior: Guarded, Suspicious, Aggressive (verbally), Belligerent, Resistive to Care, Avoidant, Distractible, Isolative and Uncooperative Mood Description: Constricted Affect Description: Constricted Patient Cognition Impaired: Yes Ability to Follow Directions: Fair Speech Pattern: Perseverating and Spontaneous Speech Memory Description: Remote Impaired and Episodic Impaired Delusions: Paranoid Ideation Thought Process: Illogical Thought Content: positive for [place], positive for Circumstantial, positive for Preoccupation and positive for Thought Blocking Depressive Symptoms: Increased Irritability and Isolating-Friends/Family Abnormal Motor Activity Signs and Symptoms: Agitation Judgement: Poor Diagnostics Vital Signs (24Hr): Vital Signs - 24 hr 01/03/21 19:20 01/04/21 06:00 01/04/21 06:58 Temperature 97.4 F 97.6 F 97.6 F Pulse Rate 84 76 88 Respiratory Rate 18 Blood Pressure 111/80 133/81 114/75 Pulse Oximetry 98 100 100 Body Mass Index 29.2 Labs Results: 12/29/20 08:06 12/29/20 08:06 Medications Medications Current Medications Acetaminophen (Acetaminophen 325 Mg Tablet) 650 mg PO Q6H PRN PRN Reason: Headache/Pain Mild Scale (1-3) Al Hydroxide/Mg Hydroxide (Magnesium Hydrox/Alum Hydrox 30 Ml Oral.Susp) 30 ml PO Q6H PRN PRN Reason: Heartburn/Nausea Benztropine Mesylate (Benztropine Mesylate 1 Mg Tablet) 1 mg PO TID PRN PRN Reason: Extrapyramidal Effects Hydroxyzine HCl (Hydroxyzine Hcl 25 Mg Tablet) 25 mg PO BEDTIME PRN PRN Reason: Anxiety Magnesium Hydroxide (Milk Of Magnesia 30 Ml Oral.Susp) 30 ml PO DAILY PRN PRN Reason: Constipation Pt Own Med ( (Lansoprazole 30 Mg)) 1 each PO DAILY@0630 [facility] Last Admin: 01/03/21 06:16 Dose: Not Given Documented by: Olanzapine (Olanzapine 10 Mg Vial) 10 mg IM DAILY [facility] Last Admin: 01/03/21 09:07 Dose: 10 mg Documented by: Ondansetron HCl (Ondansetron Odt 4 Mg Tab.Rapdis) 8 mg TRANSLINGU Q8H PRN PRN Reason: Nausea Last Admin: 12/19/20 08:36 Dose: 8 mg Documented by: Pharmacy Consult (Consult Rx Perform Med Rec) 1 each MISCELLANE ONCE PRN PRN Reason: Consult order Trazodone HCl (Trazodone Hcl 50 Mg Tablet) 50 mg PO BEDTIME PRN PRN Reason: Insomnia Allergies Allergies Allergy/AdvReac Type Severity Reaction Status Date / Time metoclopramide [From Reglan] Allergy Muscle Verified 12/06/20 07:02 cramps haloperidol [From Haldol] AdvReac Severe Dystonia Verified 12/16/20 08:24 sucralfate [From Carafate] AdvReac Severe vomiting Verified 12/16/20 08:23 Assessment & Plan Assessment & Plan (1) Schizoaffective disorder, bipolar type: Status: Acute Code(s): F25.0 - Schizoaffective disorder, bipolar type (2) Abnormal EEG: Status: Acute Code(s): R94.01 - Abnormal electroencephalogram [EEG] (3) IBS (irritable bowel syndrome): Status: Acute Code(s): K58.9 - Irritable bowel syndrome without diarrhea Assessment and Plan: 01/02/21: Continue current regime On 01/05 probable 2 day trial of Abilify po with GI med support to establish tolerance for Maintena/Aristada trial. 01/04/2021 continue current regimen and plans I spent minutes with the patient and/or on the patient floor today, greater than?50% of which was spent counseling/coordinating care. Reason for contiued inpatient stay Substantial Risk for: other
[2021-01-04] MEDS: OLANZapine 10 MG VIAL IM (08:42)
[2021-01-04 20:05] VITALS: BP 111/71; PULSE 81; RESP 18; TEMP 36.8; O2SAT 99
[2021-01-04] MEDS: hydrOXYzine HCL 25 MG TABLET PO (23:25)
[2021-01-04] MEDS: Ondansetron ODT 4 MG TAB.RAPDIS 8 MG TRANSLINGU (23:25)
--- NOTE | 2021-01-05 05:04 | PC.NURSE ---
Patient noted to be anxious and withdrawn to room. When asked how she was doing, she was unable to respond. After sometime she stated, I am having flashbacks. Patient noted to have gross motor and facial tics. Patient provided with comfort and assisted to bed with warm blankets.
[2021-01-05 06:26] VITALS: BP 110/59; PULSE 74; RESP 18; TEMP 36.9; O2SAT 100
[2021-01-05] MEDS: OLANZapine 10 MG VIAL IM (09:08)
--- NOTE | 2021-01-05 17:43 | P.PNPSI_ITS ---
Subjective Subjective Date of Service: 01/05/21 Reason For Visit: Schizoaffective Disorder Subjective Notes: Conditional Voluntary Healthcare Proxy: No Guardianship: No Medical Problems Affecting Mental Status: No Interim History: Pt has agreed to Abilify trial, two po doses, if tolerated will give PRITCHETT Abilify. She refuses PO Zofran-[facility] pharmacy has IM and we will order IM Zofran prior to Abilify po trial dosing. Care discussed with Dr. Gomez, consult much appreciated Medication Compliance: Yes Side effects from medications: No Attending Groups: Yes Review of Systems Acute medical concerns: No Medical Review of Systems: unchanged Review of Systems Reports behavioral changes Psychiatric: Reports anxiety, Reports behavioral changes, Reports irritability, Reports mood swings and Reports paranoia Mental Status Exam Mental Status Exam Patient Appearance: Appropriate Patient Orientation: Person, Place, Time and Situation Level of Consciousness: Alert Patient Behavior: Guarded, Talkative, Suspicious, Aggressive, Belligerent, Anxio us, Fearful, Resistive to Care, Avoidant, Good Eye Contact and Uncooperative Mood Description: Calm, Suspicious, Constricted, Hostile, Angry, Flat and Apprehensive Affect Description: Constricted Patient Cognition Impaired: No Ability to Follow Directions: Good Speech Pattern: Spontaneous Speech Memory Description: Episodic Impaired Hallucinations: None Delusions: Paranoid Ideation and Present Thought Process: Distracted Thought Content: positive for [place] Depressive Symptoms: Increased Irritability Abnormal Motor Activity Signs and Symptoms: Restlessness Judgement: Fair Diagnostics Vital Signs (24Hr): Vital Signs - 24 hr 01/04/21 20:05 01/05/21 06:26 Temperature 98.3 F 98.4 F Pulse Rate 81 74 Respiratory Rate 18 18 Blood Pressure 111/71 110/59 L Pulse Oximetry 99 100 Body Mass Index 29.2 Labs Results: 12/29/20 08:06 12/29/20 08:06 Medications Medications Current Medications Acetaminophen (Acetaminophen 325 Mg Tablet) 650 mg PO Q6H PRN PRN Reason: Headache/Pain Mild Scale (1-3) Al Hydroxide/Mg Hydroxide (Magnesium Hydrox/Alum Hydrox 30 Ml Oral.Susp) 30 ml PO Q6H PRN PRN Reason: Heartburn/Nausea Aripiprazole (Aripiprazole 10 Mg Tablet) 10 mg PO DAILY [facility] Stop: 01/08/21 10:00 Benztropine Mesylate (Benztropine Mesylate 1 Mg Tablet) 1 mg PO TID PRN PRN Reason: Extrapyramidal Effects Hydroxyzine HCl (Hydroxyzine Hcl 25 Mg Tablet) 25 mg PO BEDTIME PRN PRN Reason: Anxiety Last Admin: 01/04/21 23:25 Dose: 25 mg Documented by: Magnesium Hydroxide (Milk Of Magnesia 30 Ml Oral.Susp) 30 ml PO DAILY PRN PRN Reason: Constipation Pt Own Med ( (Lansoprazole 30 Mg)) 1 each PO DAILY@0630 [facility] Last Admin: 01/05/21 08:55 Dose: Not Given Documented by: Ondansetron HCl (Ondansetron Odt 4 Mg Tab.Rapdis) 8 mg TRANSLINGU Q8H PRN PRN Reason: Nausea Last Admin: 01/04/21 23:25 Dose: 8 mg Documented by: Ondansetron HCl (Ondansetron Odt 8 Mg Tab.Rapdis) 8 mg TRANSLINGU DAILY [facility] Stop: 01/08/21 10:00 Pharmacy Consult (Consult Rx Perform Med Rec) 1 each MISCELLANE ONCE PRN PRN Reason: Consult order Trazodone HCl (Trazodone Hcl 50 Mg Tablet) 50 mg PO BEDTIME PRN PRN Reason: Insomnia Allergies Allergies Allergy/AdvReac Type Severity Reaction Status Date / Time metoclopramide [From Reglan] Allergy Muscle Verified 12/06/20 07:02 cramps haloperidol [From Haldol] AdvReac Severe Dystonia Verified 12/16/20 08:24 sucralfate [From Carafate] AdvReac Severe vomiting Verified 12/16/20 08:23 Assessment & Plan Assessment & Plan (1) Schizoaffective disorder, bipolar type: Status: Acute Code(s): F25.0 - Schizoaffective disorder, bipolar type (2) Abnormal EEG: Status: Acute Code(s): R94.01 - Abnormal electroencephalogram [EEG] (3) IBS (irritable bowel syndrome): Status: Acute Code(s): K58.9 - Irritable bowel syndrome without diarrhea Assessment and Plan: Pt agrees to Abilify trial, po, 2 doses, 10 mg. Will only accept Zofran IM or I V. [facility] pharmacy has IM so we will trial this. I spent 30 minutes with the patient and/or on the patient floor today, greater than?50% of which was spent counseling/coordinating care. Patient educated on: medication risk/benefits Informed Consent: understands and further education needed Reason for contiued inpatient stay Substantial Risk for: inability to function and rapid decompensation
[2021-01-06 05:23] VITALS: BP 114/74; PULSE 65; RESP 17; TEMP 36.3; O2SAT 98
[2021-01-06] MEDS: ondansetron HCL 4 MG/2 ML VIAL IM (10:15)
[2021-01-06] MEDS: ARIPiprazole 10 MG TABLET PO (11:29)
--- NOTE | 2021-01-06 15:27 | P.PNPSI_ITS ---
Subjective Subjective Date of Service: 01/06/21 Reason For Visit: Schizoaffective Disorder Subjective Notes: Conditional Voluntary Healthcare Proxy: No Guardianship: No Medical Problems Affecting Mental Status: No Interim History: Day one trial of PO Abilify. Given IM Zofran and pt able to jerica erate PO dosing. Checked in with pt during the day-no adverse effects. Discussed with mother. Medication Compliance: Yes Side effects from medications: No Attending Groups: Yes Review of Systems Acute medical concerns: No Medical Review of Systems: unchanged Review of Systems Reports behavioral changes Psychiatric: Reports anxiety, Reports behavioral changes, Reports irritability, Reports mood swings and Reports paranoia Mental Status Exam Mental Status Exam Patient Appearance: Appropriate Patient Orientation: Person, Place, Time and Situation Level of Consciousness: Alert Patient Behavior: Guarded, Talkative, Suspicious, Aggressive, Belligerent, Anxious, Fearful, Resistive to Care, Avoidant, Good Eye Contact and Uncooperative Mood Description: Calm, Suspicious, Constricted, Hostile, Angry, Flat and Apprehensive Affect Description: Constricted Patient Cognition Impaired: No Ability to Follow Directions: Good Speech Pattern: Spontaneous Speech Memory Description: Episodic Impaired Hallucinations: None Delusions: Paranoid Ideation and Present Thought Process: Distracted Thought Content: positive for [place] Depressive Symptoms: Increased Irritability Abnormal Motor Activity Signs and Symptoms: Restlessness Judgement: Fair Diagnostics Vital Signs (24Hr): Vital Signs - 24 hr 01/06/21 05:23 Temperature 97.3 F Pulse Rate 65 Respiratory Rate 17 Blood Pressure 114/74 Pulse Oximetry 98 Body Mass Index 29.2 Labs Results: 12/29/20 08:06 12/29/20 08:06 Medications Medications Current Medications Acetaminophen (Acetaminophen 325 Mg Tablet) 650 mg PO Q6H PRN PRN Reason: Headache/Pain Mild Scale (1-3) Al Hydroxide/Mg Hydroxide (Magnesium Hydrox/Alum Hydrox 30 Ml Oral.Susp) 30 ml PO Q6H PRN PRN Reason: Heartburn/Nausea Aripiprazole (Aripiprazole 10 Mg Tablet) 10 mg PO DAILY [facility] Stop: 01/08/21 10:00 Last Admin: 01/06/21 11:29 Dose: 10 mg Documented by: Benztropine Mesylate (Benztropine Mesylate 1 Mg Tablet) 1 mg PO TID PRN PRN Reason: Extrapyramidal Effects Hydroxyzine HCl (Hydroxyzine Hcl 25 Mg Tablet) 25 mg PO BEDTIME PRN PRN Reason: Anxiety Last Admin: 01/04/21 23:25 Dose: 25 mg Documented by: Magnesium Hydroxide (Milk Of Magnesia 30 Ml Oral.Susp) 30 ml PO DAILY PRN PRN Reason: Constipation Pt Own Med ( (Lansoprazole 30 Mg)) 1 each PO DAILY@0630 [facility] Last Admin: 01/06/21 10:20 Dose: Not Given Documented by: Ondansetron HCl (Ondansetron Odt 4 Mg Tab.Rapdis) 8 mg TRANSLINGU Q8H PRN PRN Reason: Nausea Last Admin: 01/04/21 23:25 Dose: 8 mg Documented by: Ondansetron HCl (Ondansetron Hcl 4 Mg/2 Ml Vial) 4 mg IM DAILY [facility] Stop: 01/07/21 09:01 Last Admin: 01/06/21 10:15 Dose: 4 mg Documented by: Pharmacy Consult (Consult Rx Perform Med Rec) 1 each MISCELLANE ONCE PRN PRN Reason: Consult order Trazodone HCl (Trazodone Hcl 50 Mg Tablet) 50 mg PO BEDTIME PRN PRN Reason: Insomnia Allergies Allergies Allergy/AdvReac Type Severity Reaction Status Date / Time metoclopramide [From Reglan] Allergy Muscle Verified 12/06/20 07:02 cramps haloperidol [From Haldol] AdvReac Severe Dystonia Verified 12/16/20 08:24 sucralfate [From Carafate] AdvReac Severe vomiting Verified 12/16/20 08:23 Assessment & Plan Assessment & Plan (1) Schizoaffective disorder, bipolar type: Status: Acute Code(s): F25.0 - Schizoaffective disorder, bipolar type (2) Abnormal EEG: Status: Acute Code(s): R94.01 - Abnormal electroencephalogram [EEG] (3) IBS (irritable bowel syndrome): Status: Acute Code(s): K58.9 - Irritable bowel syndrome without diarrhea Assessment and Plan: Day 1 of PO Abilify trial without adverse effects. Will proceed with plan to trial for day 2 to establish tolerability. I spent 20 minutes with the patient and/or on the patient floor today, greater than?50% of which was spent counseling/coordinating care. Patient educated on: medication risk/benefits Informed Consent: understands Reason for contiued inpatient stay Substantial Risk for: inability to function and rapid decompensation
[2021-01-07 06:00] VITALS: BP 120/68; PULSE 107; RESP 18; TEMP 36.4
[2021-01-07] MEDS: ondansetron HCL 4 MG/2 ML VIAL IM (09:18)
[2021-01-07] MEDS: ARIPiprazole 10 MG TABLET PO (10:20)
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
[2021-01-08 06:00] VITALS: BP 86/54; PULSE 62; RESP 16; TEMP 36.4; O2SAT 100
--- NOTE | 2021-01-08 14:48 | P.PNPSI_ITS ---
Subjective Subjective Date of Service: 01/08/21 Reason For Visit: Schizoaffective Disorder Subjective Notes: Conditional Voluntary Healthcare Proxy: No Guardianship: No Medical Problems Affecting Mental Status: No Interim History: Pt was scheduled to receive Abilify Maintena 300 mg IM initial dosing today, however we did not receive it on order from outside provider. As a result, discussed with pt ordering the MRI today which she agreed with. Testing completed. Plans [facility] interview 01/09. Active in milieu-no adverse effects reported from two initial doses of PO abilify on 01/06 and 01/07. Planning discharge Wed. Medication Compliance: Yes Side effects from medications: No Attending Groups: Yes Review of Systems Acute medical concerns: No Awaiting MRI results Medical Review of Systems: unchanged Review of Systems Psychiatric: Reports anxiety and Reports irritability Diagnostics Vital Signs (24Hr): Vital Signs - 24 hr 01/08/21 06:00 Temperature 97.5 F Pulse Rate 62 Respiratory Rate 16 Blood Pressure 86/54 L Pulse Oximetry 100 Body Mass Index 29.2 Labs Results: 12/29/20 08:06 01/08/21 20:06 Imaging Radiology Impressions: ITS Impressions Brain MRI 01/08/21 13:09 IMPRESSION: 1. No demonstrated acute intracranial abnormalities. 2. Mixed intensity, partially enhancing lesion associated with the pituitary gland extending into the suprasellar cistern. This may represent an underlying adenoma but could be further characterized with dedicated pituitary protocol MRI. 3. No additional suspicious intracranial enhancement. 4. Nonspecific mildly prominent upper cervical chain lymph nodes. Nodules within the bilateral parotid glands may represent intraparotid lymph nodes. Medications Medications Current Medications Acetaminophen (Acetaminophen 325 Mg Tablet) 650 mg PO Q6H PRN PRN Reason: Headache/Pain Mild Scale (1-3) Al Hydroxide/Mg Hydroxide (Magnesium Hydrox/Alum Hydrox 30 Ml Oral.Susp) 30 ml PO Q6H PRN PRN Reason: Heartburn/Nausea Aripiprazole (Aripiprazole Er 300 Mg Suser.Vial) 300 mg IM ONCE ONE Stop: 01/09/21 10:01 Benztropine Mesylate (Benztropine Mesylate 1 Mg Tablet) 1 mg PO TID PRN PRN Reason: Extrapyramidal Effects Hydroxyzine HCl (Hydroxyzine Hcl 25 Mg Tablet) 25 mg PO BEDTIME PRN PRN Reason: Anxiety Last Admin: 01/04/21 23:25 Dose: 25 mg Documented by: Magnesium Hydroxide (Milk Of Magnesia 30 Ml Oral.Susp) 30 ml PO DAILY PRN PRN Reason: Constipation Pt Own Med ( (Lansoprazole 30 Mg)) 1 each PO DAILY@0630 [facility] Last Admin: 01/08/21 09:14 Dose: Not Given Documented by: Ondansetron HCl (Ondansetron Odt 4 Mg Tab.Rapdis) 8 mg TRANSLINGU Q8H PRN PRN Reason: Nausea Last Admin: 01/04/21 23:25 Dose: 8 mg Documented by: Pharmacy Consult (Consult Rx Perform Med Rec) 1 each MISCELLANE ONCE PRN PRN Reason: Consult order Trazodone HCl (Trazodone Hcl 50 Mg Tablet) 50 mg PO BEDTIME PRN PRN Reason: Insomnia Allergies Allergies Allergy/AdvReac Type Severity Reaction Status Date / Time metoclopramide [From Reglan] Allergy Muscle Verified 12/06/20 07:02 cramps haloperidol [From Haldol] AdvReac Severe Dystonia Verified 12/16/20 08:24 sucralfate [From Carafate] AdvReac Severe vomiting Verified 12/16/20 08:23 Assessment & Plan Assessment & Plan (1) Schizoaffective disorder, bipolar type: Status: Acute Code(s): F25.0 - Schizoaffective disorder, bipolar type (2) Abnormal EEG: Status: Acute Code(s): R94.01 - Abnormal electroencephalogram [EEG] (3) IBS (irritable bowel syndrome): Status: Acute Code(s): K58.9 - Irritable bowel syndrome without diarrhea Assessment and Plan: Continue to monitor. Jorge Aative Zohra Acharyaa injection 01/09/21. I spent 15 minutes with the patient and/or on the patient floor today, greater than?50% of which was spent counseling/coordinating care. Informed Consent: understands and further education needed Reason for contiued inpatient stay Substantial Risk for: harm to self, harm to others, inability to function, rapid decompensation and med/psych decompensation
[2021-01-08 18:45] VITALS: BP 110/89; PULSE 98; RESP 18; TEMP 36.1; O2SAT 99
--- NOTE | 2021-01-08 19:14 | P.EN_ITS ---
Event Note Date of Service: 01/08/21 Event Note: Rapid response Called 655 pm. went directly to see the patient in kitchen moving irregularly. no tonic clonic seizure noted. Observed and received 2 doses of Ativan 2 mg with fair response. Seems pseudoseizures Patient mentation improved after ativan and became relaxed and talkative To check electrolytes Will continue to monitor overnight Hospitalist team fabrication and assembly supervisor
[2021-01-08 19:21] VITALS: PULSE 112; O2SAT 100
[2021-01-08] MEDS: LORazepam 2 MG/ML VIAL 4 MG IVPUSH (19:24)
--- NOTE | 2021-01-08 19:26 | PC.NURSE ---
Ativan 2mg given, with repeat dose 5 minutes apart IV PUSH for seizure/pseudo seizure stat using override
[2021-01-08 19:38] LABS: Glucose, Whole Blood 85 mg/dL (60-115)
[2021-01-08 20:38] LABS: Alanine Aminotransferase 18 U/L (0-31); Albumin Level 4.6 g/dL (3.5-5.0); Alkaline Phosphatase 93 U/L (39-117); Anion Gap 13 (12-20); Aspartate Amino Transferase 18 U/L (5-31); Bilirubin Direct 0.2 mg/dL (0.0-0.5); Bilirubin Total 0.5 mg/dL (0.0-1.0); Blood Urea Nitrogen 8 mg/dL (9-16); Calcium 9.6 mg/dL (8.4-10.2); Carbon Dioxide 27 mmol/L (22-29); Chloride 102 mmol/L (96-108); Creatinine Clr Calc Pharmacy 113.6; Estimated Glomerular Filt Rate > 60; Glucose Random 92 mg/dL (60-115); Magnesium 2.1 mg/dL (1.6-2.6); Potassium 4.1 mmol/L (3.3-5.1); Sodium 138 mmol/L (135-145)
--- NOTE | 2021-01-08 22:40 | PC.NURSE ---
Around 1854- help was requested d/t Pt requiring rapid assistance. Pt observed seizing on the floor as staff where assisting Pt. HAND SOLE SEWER was announced. Pt transferred to [facility]. Oncall aware, Nursing Processing Mgr aware. Family was notified of event.
--- NOTE | 2021-01-09 07:34 | PM.PSYDC ---
DS: Providers Provider Date of Service: 01/08/21 Date of admission: 12/08/20 14:42 Date of discharge: 01/08/21 Primary care physician: Unknown Physician Admitting clinician: Hiram Canales Attending physician on admission: Hiram Canales Consults: 12/11/20 16:25 Consult to Gastroenterology Routine Consulting Provider: [facility] Reason for consultation: Difficulty keeping medications down, IBS sx, OP evhina w/ Dr. Mart in proce Has provider been notified: Yes 12/17/20 19:17 Consult to Neurology Routine Consulting Provider: [facility] Reason for consultation: psychosis, abnormal EEG Has provider been notified: No 01/05/21 10:34 Consult to Gastroenterology Routine Consulting Provider: [facility] Reason for consultation: request recommendation for meds to help pt tolerate po antipsychotic dosing Has provider been notified: Yes Attending physician on discharge: Mat Christensen Discharging clinician: Joann White DS: Diagnosis Discharge Diagnosis (1) Schizoaffective disorder, bipolar type: Status: Acute (2) Abnormal EEG: Status: Acute (3) IBS (irritable bowel syndrome): Status: Acute DS: Medications Discharge Medications Home Medications: Home Medications Medication Instructions Recorded Confirmed L norgest/E estradiol-E estrad 1 tab PO DAILY 01/09/21 01/09/21 0.15 mg-30 mcg (84)/10 mcg(7) tabs,3mos bupropion HCl 300 mg 24 hr tablet, 1 tab PO DAILY 01/09/21 01/09/21 extended release lansoprazole 30 mg delayed 30 mg PO DAILY 01/09/21 01/09/21 release,disintegrating tablet metoclopramide HCl 5 mg tablet 1 tab PO QID 01/09/21 01/09/21 olanzapine 15 mg disintegrating 1 tab PO BEDTIME 01/09/21 01/09/21 tablet Mental Status Exam Mental Status Exam Narrative: This publications writer was not present when pt was discharged to medicine. Data Data Completed and Pending Completed studies during hospitalization [Text1]: 01/08/21 01/08/21 01/08/21 19:18 20:06 20:06 Sodium 138 Potassium 4.1 Chloride 102 Carbon Dioxide 27 Anion Gap 13 BUN 8 L Creatinine 0.76 Estim Creat Clear Calc 113.6 Estimated GFR > 60 POC Glucose 85 Random Glucose 92 Calcium 9.6 Magnesium 2.1 Total Bilirubin 0.5 Direct Bilirubin 0.2 AST 18 ALT 18 Alkaline Phosphatase 93 D Total Protein 8.0 D Albumin 4.6 Prolactin 6.1 Imaging Diagnostic Imaging Impressions Brain MRI 01/08/21 13:09 IMPRESSION: 1. No demonstrated acute intracranial abnormalities. 2. Mixed intensity, partially enhancing lesion associated with the pituitary gland extending into the suprasellar cistern. This may represent an underlying adenoma but could be further characterized with dedicated pituitary protocol MRI. 3. No additional suspicious intracranial enhancement. 4. Nonspecific mildly prominent upper cervical chain lymph nodes. Nodules within the bilateral parotid glands may represent intraparotid lymph nodes. DS: Summary Hospital Course Hospital Course: Admission to adult psychiatry to address symptoms of exacerbation of PTSD and schizoaffective disorder. Civil commit consideration was requested and denied by the court. Pt, unable to tolerate PO meds due to GI sx, accepted Olanzapine 10 mg IM throughout admission. Upon denial of civil commitment by the court, pt agreed to sign a conditional voluntary and continue care and to have a trial of Abilify Maintena, suggested by her out pt provider. She tolerated two po doses of Abilify 10 mg with IM Zofran given prior to both doses on 01/06 and 01/07. Maintena 300 mg was not available on 01/08 and she agreed to continue her medical eval, having MRI with and without contrast to further clarify abnormal EEG results found at [facility] early this . On the evening of 01/08/21 she presented with seizure-like activity and is transferred to medicine for further evaluation, hopefully to continue psychiatric care when this evaluation is completed. Time spent discussing smoking cessation with patient: 3 to 10 minutes Status at Discharge Cognitive/behavioral status at discharge: this publications writer was not present when pt was discharged to medicine Functional status at discharge: bed bound Overall status at discharge: patient is not back to baseline Time Spent with Patient Time attestation: Total time spent providing and/or coordinating discharge services: 15 Discharge Plan Discharge Patient Disposition: [facility] Acute Care Hospital Discharge Diagnosis: Schizoaffective Disorder, Bipolar Type Referrals: JUDY WAKEFIELD [Other] - 01/08/21 2:00 pm (IN OFFICE) Physician,Bobo J [Primary Care Provider] - 1 Day (M[facility] Appointment for injection tomorrow at 1030am with PCP) Discharge Medications: Discontinued olanzapine [Zyprexa] 15 mg Tablet 15 mg PO DAILY RF: 0 bupropion HCl [Wellbutrin XL] 300 mg Tablet Extended Release 24 Hr 300 mg PO QAM RF: 0 No Action metoclopramide HCl 5 mg tablet 1 tab PO QID RF: 0 olanzapine 15 mg tablet,disintegrating 1 tab PO BEDTIME RF: 0 lansoprazole 30 mg tablet,disintegrat, delay rel 30 mg PO DAILY RF: 0 bupropion HCl 300 mg tablet extended release 24 hr 1 tab PO DAILY RF: 0 L norgest/e.estradiol-e.estrad 0.15 mg-30 mcg (84)/10 mcg (7) tablets,dose pack,3 month 1 tab PO DAILY RF: 0 Discharge Orders: Discharge Order (Routine); Ordered 01/08/21 Ordered By: Chanda Lechuga Diet: other Activity on Discharge: per med Stand Alone Forms: Patient Portal Discharge page, Community Support Care Plan Goals: Mood Stabilization Health Concerns: Schizoaffective Disorder, Bipolar Type Plan of Treatment: Transfer to medicine. Assessment: [facility] applied for civil commitment for Delaney. Judge Akins declined ongoing hospitalization, thus Delaney is being discharged before we believe she is prepared to do so. She has been offered to continue treatment at [facility], and to apply for emergency respite services and has declined. She has agreed to a [facility] application for services and this has been submitted. We have recommended that she not drive and she does disagree with this recommendation. She plans to return to her family home in [place], [facility] and states she will stay in a hotel. We have placed her on alert status with local crisis teams. She reports she will continue her IM medications. As a result we have scheduled her with her primary care practice for 01/01/21 10:[address] Cody Maier for her daily injection. Medication refills have been sent to [facility], [place], [place]. Patient Instructions: Olanzapine (By injection) Discharge Date/Time: 01/08/21 19:59
[2021-01-11 04:31] LABS: Prolactin 6.1 ng/mL
== END 2021-01-08 19:59 | disposition home or self-care (01) | DRG 885 ==
LOC: HO.ED 12-08 00:58 → HO.PM5 12-08 14:43
PROVIDERS: Internal Medicine Gastroenterology; Registered Nurse; Student in an Organized Health Care Education/Training Program; Admitting Provider Psychiatry & Neurology Psychiatry; Emergency Provider Emergency Medicine; Visit Provider Clinical Nurse Specialist Psychiatric/Mental Health, Adult
DX: F25.0 Schizoaffective disorder, bipolar type (principal); K58.9 Irritable bowel syndrome, unspecified; R56.9 Unspecified convulsions; R94.01 Abnormal electroencephalogram [EEG]; Z91.14 Patient's other noncompliance with medication regimen; Z91.51 Personal history of suicidal behavior; Z20.822 Contact with and (suspected) exposure to COVID-19; Z87.891 Personal history of nicotine dependence; Z79.899 Other long term (current) drug therapy
CPT/HCPCS: 36415; 70553; 80048; 80053; 80061; 80076; 80307; 82390; 82607; 82746; 82947; 83036; 83088; 83516; 83520; 83735; 84146; 84439; 84443; 84630; 85025; 85652; 86003; 87635; 93005; 99285; A9585; J2060; J2405

== ENCOUNTER 2021-01-08 20:18 | Observation (INO) | payer OTHER, SELFPAY ==
--- NOTE | 2021-01-08 | ECG_ITS ---
Test Reason : chest pain Blood Pressure : / mmHG Vent. Rate : 102 BPM Atrial Rate : 102 BPM P-R Int : 138 ms QRS Dur : 072 ms QT Int : 346 ms P-R-T Axes : 031 041 033 degrees QTc Int : 450 ms Sinus tachycardia Otherwise normal ECG No significant changes seen Referred By: Leonid Ward Electronically Signed By:MELCHOR GONZALES MD
--- NOTE | ~2021-01-08 | FL_ITS ---
PROCEDURE: XR LUMBAR PUNCTURE CLINICAL INFORMATION: Abnormal EEG. Psychosis. Traumatic brain injury. Check anti-NMDA antibody. COMPARISON: None TECHNIQUE/FINDINGS: Procedure and risks and benefits including bleeding, infection and headache were discussed with the patient and informed consent was obtained. The patient was positioned in the prone position. The back was prepped and draped in the usual sterile fashion. The soft tissues were anesthetized with 1% lidocaine plain. Using fluoroscopic guidance and a 22-gauge spinal needle, CSF access at the L3-L4 interlaminar level was obtained. 4 mL of clear CSF fluid was removed. Opening pressure was 3 cm of water. Diagnostic specimen was sent as requested by the ordering physician. FLUOROSCOPY TIME: 0.7 minutes DOSE AREA PRODUCT: 5 Gycm2 FL/FL guided lumbar puncture LP IMPRESSION: Fluoroscopy-guided lumbar puncture.
--- NOTE | ~2021-01-08 | MR_ITS ---
EXAMINATION: MR BRAIN WITHOUT AND WITH CONTRAST CLINICAL INFORMATION: Pituitary adenoma. COMPARISON: Brain MRI from 01/08/2021. TECHNIQUE: Multiplanar, multisequence MRI of the brain was obtained using pituitary protocol before and after the intravenous administration of 4 mL Gadavist. FINDINGS: No focal restricted diffusion is demonstrated to suggest acute or subacute cerebral ischemia. Normal parenchymal signal characteristics. The ventricles are normal in morphology and size. No abnormal mass effect. No midline shift. Normal positioning of the cerebellar tonsils. As previously noted, there is a nodular lesion within the suprasellar cistern that is inseparable from the superior margin of the pituitary gland, measuring 0.7 x 0.7 x 0.6 cm. This lesion demonstrates a 0.4 cm nodular component along its right lateral aspect that is inherently T1 hyperintense and T2 hypointense. There is a 0.6 cm portion of this lesion that is inherently T1 hypointense and T2 hyperintense along its left lateral aspect with irregular enhancing peripheral sheehan. This lesion directly abuts the anterior margin of the pituitary infundibulum which remains midline but is mildly buckled posteriorly. The lesion also abuts the undersurface of the optic chiasm without causing overt deformity of the chiasm. No abnormal signal intensity or enhancement within the optic chiasm at this time. Otherwise, the pituitary gland appears of normal morphology and signal intensity. No additional Normal posterior pituitary bright spot. No hyperenhancing or hypoenhancing lesions demonstrated on post contrast imaging. Normal arterial and venous vascular flow voids are present. No additional abnormal contrast enhancement. Normal, homogeneous marrow signal. Mild mucosal thickening of the paranasal sinuses. Rightward nasal septal deviation. No signal abnormalities within the mastoids. Nonspecific mildly prominent upper cervical chain and parotid lymph nodes, similar to prior exam. MR/MR head/brain wo/w con IMPRESSION: 1. Redemonstrated 0.7 cm nodular lesion centered within the suprasellar cistern. This lesion appears intimately related to the superior margin of the pituitary gland but also abuts the anterior margin of the pituitary infundibulum and undersurface of the optic chiasm. There appears to be both cystic and solid components of this lesion. Leading considerations would include an underlying pituitary microadenoma versus small craniopharyngioma. 2. No acute intracranial abnormalities. No additional abnormal intracranial enhancement.
[2021-01-08 20:25] VITALS: BMI 27.2
[2021-01-08 20:30] VITALS: BP 111/70; PULSE 102; RESP 16; TEMP 37; O2SAT 99
--- NOTE | 2021-01-08 21:35 | P.HPHOSP_ITS ---
History of Present Illness Date of Service: 01/08/21 Chief Complaint: seizure 25-year-old female with past medical history of bipolar/schizophrenia, admitted [facility] for this same who had a rapid response call on her around 7:00 p.m. due to seizure-like activity. Patient was seen by my colleague, given patient co ntinues seizing therefore nursing staff as well as ICU recommended transfer to [facility]. When I saw the patient she was awake, alert, oriented, able to give history well, her father and mother were at bedside. Her mother is a psychologist in her father is a physician in the area. The patient herself says that she had about 2 similar episodes in the past, she was evaluated at an outside hospital, with an EEG and was told that she does not have seizure. She reports that she felt like her seizure was coming today, she had a headache, and when she came about she was postictal. She denies any loss of bowel or bladder control and tongue bite. She currently complaining of abdominal pain but otherwise has no chest pain, no shortness of breath, no nausea or vomiting, no diarrhea constipation, no urinary symptoms and no lower extremity edema. Vitals show no abnormality, I obtained BMP which will showed no significant abnormality, troponin is negative. Lactic acid is 1.4, no other significant abnormality. Patient did have an MRI ordered by the psychiatrist earlier today which showed no demonstrated acute intracranial abnormality, makes intensity partially enhancing lesion associated with the pituitary gland extending into the suprasellar cistern. Patient also had an EEG that was reviewed by Neurology back in November. Per the Neurology report EEG suggesting mild left temporal slowing, no clinical or EEG evidence of seizure disorder. Noncontrast head CT okay, recommend obtaining an MRI of the brain with and without contrast to rule out any focal lesion. This type of abnormality could also be abnormal Patient will be admitted to the medical floor for further management Review of Systems Review of Systems: Yes all other systems are reviewed and are negative [facility] Medical History Anxiety Depression IBS (irritable bowel syndrome) Schizoaffective disorder, bipolar type Schizophrenia Umbilical hernia Pertinent family history: Patient adopted Surgical History History of cholecystectomy Social History Household Members: Family Household Members Other:: dad & brother Housing: House Do you presently have visiting nurse or other home services: No Unable to assess alcohol history related to: Unknown Patient Tobacco Use Status: Former Tobacco user Tobacco use type: Cigarette e-Cigarette/Vaping Use: Never Used Second Hand Smoke Exposure: No Use of substances other than those prescribed or required for medical reasons: Yes Substance Use Type: Marijuana Substance Use Frequency: Daily Last Used Substance: Weeks (ago) Last Used Substance Other:: 5 weeks ago Currently Displaying Signs/Symptoms of Drug Intoxication Withdrawal: No Any prior treatment program specific to substance use: No Have you been hit, kicked, punched, or otherwise hurt by someone within the past year? If so, by whom?: No Do you feel safe in your current relationship?: No Current Relationship Is there a partner from a previous relationship who is making you feel unsafe now?: No Are you made to feel afraid or neglected: No Spiritual Healthcare Practices: none Episcopal Healthcare Practices: none Cultural Healthcare Practices: none Advance Directives: No Do you have thoughts of harming others: None Do you have a plan to hurt others: No Plan Recently lost weight without trying: No Nutrition Risks: No Nutritional Risk Patient : No : No Poor oral hygiene: No service: No Meds Allergies Allergy/AdvReac Type Severity Reaction Status Date / Time metoclopramide [From Reglan] Allergy Muscle Verified 01/08/21 20:46 cramps haloperidol [From Haldol] AdvReac Severe Dystonia Verified 01/08/21 20:46 sucralfate [From Carafate] AdvReac Severe vomiting Verified 01/08/21 20:46 Active Medications: Current Medications Acetaminophen (Acetaminophen 325 Mg Tablet) 650 mg PO Q6H PRN PRN Reason: Pain, Mild (Pain Scale 1-3) Enoxaparin Sodium (Enoxaparin Sodium 40 Mg/0.4 Ml Syringe) 40 mg SUBCUT Q24H FROILAN Levetiracetam (Keppra) 500 mg in 100 mls @ 400 mls/hr IV Q12H FROILAN Ondansetron HCl (Ondansetron Hcl 4 Mg/2 Ml Vial) 4 mg IVPUSH Q8H PRN PRN Reason: Nausea and Vomiting Sodium Chloride (0.9 % Sodium Chloride Flush 3 Ml Syringe) 3 ml IVFLUSH QSHIFT [facility] Physical Exam Vital Signs and Narrative: Vital Signs: Last Vital Signs Temp 98.6 F 01/08/21 20:30 Pulse 102 H 01/08/21 20:30 Resp 16 01/08/21 20:30 BP 111/70 01/08/21 20:30 Pulse Ox 99 01/08/21 20:30 Body Mass Index 27.2 Const: General: cooperative and no acute distress Orientation/consciousness: patient oriented x3 Eyes: General: appearance normal, both eyes and all related structures Pupils: Equal, round and reactive pupils present Resp: Effort & Inspection: normal respiratory effort Auscultation: clear to auscultation bilaterally Cardio: Rate: regular rate Rhythm: regular rhythm GI: Palpation (GI): Soft to palpation Auscultation: normal bowel sounds Skin: General skin exam: no rashes or lesions noted Neuro: General: patient oriented x3 Cranial nerves: Yes Equal, round and reactive pupils present Cognition (Neuro): normal cognition Extrem: General: Yes normal to inspection and Yes no pedal edema Results Labs CBC and Chem 7: 01/08/21 22:06 Assessment and Plan (1) Seizure-like activity: Status: Acute 25-year-old female who was admitted to [facility] for Behavioral health management including bipolar and schizophrenia had a rapid response called on her due to she seizure-like activity. # seizure-like activity - history of this, MRI showing pituitary gland lesion, and history of abnormal EEG - will start on Keppra 500 b.i.d. - will consult neurology - p.r.n. Ativan if seizure activity occurs # bipolar/schizophrenia - will consult psych to see patient while on the medical floor DVT prophylaxis: lovenox Quality Stroke Does the patient have a stroke diagnosis?: No VTE Prior VTE?: No VTE Risk Level:: Medical - moderate - high VTE Device Contraindication: Treatment Not Indicated VTE Drug Contraindication: N/A - Med Ordered
[2021-01-08] MEDS: Enoxaparin Sodium 40 MG/0.4 ML SYRINGE SUBCUT (21:43)
[2021-01-08] MEDS: levETIRAcetam in NaCl (iso-os) 500 MG/100 ML PIGGYBACK 400 MG IV (21:44)
[2021-01-08] MEDS: ondansetron HCL 4 MG/2 ML VIAL IVPUSH (21:44)
[2021-01-08 22:21] LABS: Lactic Acid 1.4 mmol/L (0.5-2.0)
[2021-01-08 22:30] LABS: Anion Gap 10 (12-20); Blood Urea Nitrogen 8 mg/dL (9-16); Calcium 8.3 mg/dL (8.4-10.2); Carbon Dioxide 25 mmol/L (22-29); Chloride 105 mmol/L (96-108); Creatinine Clr Calc Pharmacy 132.1; Estimated Glomerular Filt Rate > 60; Glucose Random 116 mg/dL (60-115); Potassium 3.9 mmol/L (3.3-5.1); Sodium 136 mmol/L (135-145)
[2021-01-08 22:32] LABS: Troponin-I High Sensitivity < 3.5 ng/L (<3.5-17.0)
[2021-01-08] MEDS: 0.9 % Sodium Chloride Flush 3 ML SYRINGE IVFLUSH (23:29)
[2021-01-08 23:34] VITALS: BP 102/54; PULSE 108; RESP 18; TEMP 36.6; O2SAT 97
--- NOTE | 2021-01-09 | EEG_ITS ---
Waking background activity consists of low voltage fast frequencies, intermixed with brief appearance of posterior alpha frequency of 8 hertz at low voltage. Most of the time, the patient is either drowsy or in stage II of sleep with symmetrical frontal central sleep spindles and vertex sharp transients that developed briefly. Deeper stages of sleep are not identified. Arousals are unremarkable. Photic stimulation is without activation. Hyperventilation was omitted. No focal, lateralizing, or paroxysmal discharge is seen. IMPRESSION: This briefly awake and predominantly sleep EEG is within normal limits. MD HERB Park/KRISSY / [id number]
[2021-01-09 04:00] VITALS: BP 115/63; PULSE 103; RESP 18; TEMP 36.8; O2SAT 98
[2021-01-09] MEDS: ondansetron HCL 4 MG/2 ML VIAL IVPUSH (05:56)
[2021-01-09 06:52] LABS: MANUAL DIFF FLAG NO
[2021-01-09 07:02] LABS: Basophils Percent Auto 0.4 % (0-2); Eosinophils Absolute Auto 0.1 X10*3/uL (0.0-0.4); Eosinophils Percent Auto 1.8 % (0-4); Hematocrit 35.8 % (37.0-47.0); Hemoglobin 11.6 g/dl (12.0-16.0); Imm Gran Abs Auto 0.01 X10*3/uL (0.00-0.03); Imm Gran Pct Auto 0.2 % (0.0-0.4); Lymphocytes Absolute Auto 2.1 X10*3/uL (1.2-4.9); Lymphocytes Percent Auto 37.8 % (20-40); Mean Corpuscular HGB Conc 32.4 g/dl (31.0-35.0); Mean Corpuscular Hemoglobin 31.3 pg (27.0-33.0); Mean Corpuscular Volume 96.5 fL (80.0-98.0); Monocytes Absolute Auto 0.6 X10*3/uL (0.1-1.2); Monocytes Percent Auto 10.6 % (2-11); Neutrophils Absolute Auto 2.8 x10*3/uL (2.0-8.3); Neutrophils Percent Auto 49.2 % (45-73); Platelet Count 512 X10*3/uL (160-400); Red Blood Count 3.71 X10*6/uL (4.20-5.50); Red Cell Distribution Width 14.3 % (11.0-16.0); White Blood Count 5.7 X10*3/uL (4.8-10.8)
[2021-01-09 07:18] VITALS: BP 102/58; PULSE 98; RESP 18; TEMP 37; O2SAT 98
[2021-01-09 07:25] LABS: Anion Gap 12 (12-20); Blood Urea Nitrogen 10 mg/dL (9-16); Carbon Dioxide 24 mmol/L (22-29); Chloride 107 mmol/L (96-108); Creatinine Clr Calc Pharmacy 124.8; Estimated Glomerular Filt Rate > 60; Glucose Random 93 mg/dL (60-115); Potassium 4.6 mmol/L (3.3-5.1); Sodium 138 mmol/L (135-145)
[2021-01-09] MEDS: 0.9 % Sodium Chloride Flush 3 ML SYRINGE IVFLUSH ×3 (09:05→21:56)
[2021-01-09] MEDS: levETIRAcetam in NaCl (iso-os) 500 MG/100 ML PIGGYBACK 400 MG IV ×2 (09:05→21:49)
--- NOTE | 2021-01-09 09:48 | HO.PM.IMPN ---
Subjective Subjective Date of Service: 01/09/21 Interval History: seen and examined this AM with patients RN bedside Patient reports minimal recollection of the events that transpired yesterday -- she reports being in the TV room. She remembers thinking she was about to seize and she remembers being given a medication after which she fell asleep. She reports prior history of seizures, but is not any medications She reports intermittent headache, which is not new. She denies any visual changes. Review of Systems negative except HPI Physical Exam Vital Signs: Vital Signs: Last Vital Signs Temp 98.6 F 01/09/21 07:18 Pulse 98 01/09/21 07:18 Resp 18 01/09/21 07:18 BP 102/58 L 01/09/21 07:18 Pulse Ox 98 01/09/21 07:18 Body Mass Index 27.2 Const: Other: General - no acute distress, appears comfortable Cardiovascular - regular rate and rhythm, S1-S2 Lungs - normal respiratory effort, clear to auscultation bilaterally, no wheezing Abdomen - soft, nontender, no rebound or guarding Extremities - no edema bilaterally Neuro - awake and alert, no focal deficits Objective Data Active Medications Acetaminophen (Acetaminophen 325 Mg Tablet) 650 mg PO Q6H PRN PRN Reason: Pain, Mild (Pain Scale 1-3) Enoxaparin Sodium (Enoxaparin Sodium 40 Mg/0.4 Ml Syringe) 40 mg SUBCUT Q24H [facility] Last Admin: 01/08/21 21:43 Dose: 40 mg Documented by: NEO Levetiracetam (Keppra) 500 mg in 100 mls @ 400 mls/hr IV Q12H [facility] Last Infusion: 01/09/21 09:21 Dose: 0 mls/hr Documented by: RANDI Ondansetron HCl (Ondansetron Hcl 4 Mg/2 Ml Vial) 4 mg IVPUSH Q8H PRN PRN Reason: Nausea and Vomiting Last Admin: 01/09/21 05:56 Dose: 4 mg Documented by: NEO Sodium Chloride (0.9 % Sodium Chloride Flush 3 Ml Syringe) 3 ml IVFLUSH QSHIFT [facility] Last Admin: 01/09/21 09:05 Dose: 3 ml Documented by: RANDI Labs CBC & Chem 7: 01/09/21 06:11 01/09/21 06:11 Labs: Laboratory Results - last 24 hr 01/08/21 01/08/21 01/08/21 22:06 22:06 22:06 MCV MCH MCHC RDW Plt Count MPV Immature Gran % (Auto) Neut % (Auto) Lymph % (Auto) [place] % (Auto) Eos % (Auto) Baso % (Auto) Lymph # (Auto) [place] # (Auto) Eos # (Auto) Baso # (Auto) Abs Immat Gran (auto) Absolute Neuts (auto) Absolute Nucleated RBC Nucleated RBC % (auto) Anion Gap 10 L Estim Creat Clear Calc 132.1 Estimated GFR > 60 Random Glucose 116 H Lactic Acid 1.4 Calcium 8.3 L D Troponin I High Sens < 3.5 01/09/21 01/09/21 06:11 06:11 MCV 96.5 MCH 31.3 MCHC 32.4 RDW 14.3 Plt Count 512 H D MPV 9.0 L Immature Gran % (Auto) 0.2 Neut % (Auto) 49.2 Lymph % (Auto) 37.8 [place] % (Auto) 10.6 Eos % (Auto) 1.8 Baso % (Auto) 0.4 Lymph # (Auto) 2.1 [place] # (Auto) 0.6 Eos # (Auto) 0.1 Baso # (Auto) 0.0 Abs Immat Gran (auto) 0.01 Absolute Neuts (auto) 2.8 Absolute Nucleated RBC 0.000 Nucleated RBC % (auto) 0.0 Anion Gap 12 Estim Creat Clear Calc 124.8 Estimated GFR > 60 Random Glucose 93 Lactic Acid Calcium 9.0 D Troponin I High Sens Assessment and Plan (1) Seizure-like activity: Status: Acute Assessment and Plan: This is a 25 yo F who was being treated for schizoaffective disorder on M5 and was transferred to the medical floor on 01/08 after seizure like activity. 1. Seizures -- epileptic vs non-epileptic On IV keppra -- continue for the time being EEG ordered Neurology consulted maintain seizure precautions 2. Suspected Pituitary Adenoma d/w Dr. Mamie Austin from the endocrinology clinic -- hormonal work up can be done as an outpatient. Will give her referral upon d/c. 3. Schizoaffective d/o Med rec pending -- continue meds that she was getting on M5 Psych Consult Full Code DVT pptx, Lovenox Quality Stroke Does the patient have a stroke diagnosis?: No VTE Prior VTE?: No VTE Risk Level:: Medical - moderate - high VTE Device Contraindication: Treatment Not Indicated VTE Drug Contraindication: N/A - Med Ordered
[2021-01-09 12:00] VITALS: BP 104/65; PULSE 85; RESP 18; TEMP 37.2; O2SAT 99
--- NOTE | 2021-01-09 12:27 | MHC.CM.PN ---
met with pt who is from plan is to return when medic ally stable prior to admisison pt explains mthat she was lvivnmg with her family
[2021-01-09 15:55] VITALS: BP 106/58; PULSE 84; RESP 18; TEMP 37.2; O2SAT 100
--- NOTE | 2021-01-09 16:16 | PM.NEUROCN ---
History of Present Illness Data of Consult Service Date: 01/09/21 Primary Care Provider: Unknown Physician HPI Reason for consult: Seizures, psychosis and mood disorder This is a 25-year-old woman who has a long history of headaches since childhood and is also being treated for psychotic problems, probably a schizoaffective disorder and possibly are more disorder for more than 3 years and has had one or 2 hospitalizations at [place] and hospitalization at [facility] and was now admitted to because of the psychotic behavior according to the family, which the patient vehemently denies. In October she had an episode of possible loss of consciousness. She was in the kitchen trying to get some juice and became lightheaded and weak and slid down to the floor with her back against the refrigerator and then came to and went back tto her room. Around that time she was having some twitching movements of her shoulders, which were noted by her psychologist and a video called and she was referred to [facility] where she was seen in the emergency room were tested and thought to possibly have have a dystonic reaction to Reglan that she is only taking 2 pills of but she says that both times she threw them up and that the twitching movements of her shoulders are going on before that. While in [facility] there is some possibility that she may have had a seizure. An EEG was done which showed some areas of slowing. There was no epileptiform activity. Subsequently she had an MRI of the brain which was normal except for a possibility of a pituitary adenoma. She has not been taking her olanzapine for several months and was brought in and admitted took him 5 a few days ago according to her mother because she became dangerous and psychotic. The patient again denies all of this and feels that she is being falsely accused. While on M5 she had a seizure-like episode that was noted as being prolonged. She was transferred to the medical floor and given Keppra IV and started on Keppra 500 mg twice a day, assuming that this was an epileptic seizure.The patient does not have any hheadache at this time, although she gets headaches frequently. Mentally, she is clear and oriented and sometimes confrontational with her mother, who is at bedside and is a psychologist. Review of Systems Review of Systems: negative except HPI Yes all other systems are reviewed and are negative [facility] Past Medical History Medical History Anxiety Depression IBS (irritable bowel syndrome) Schizoaffective disorder, bipolar type Schizophrenia Umbilical hernia Family History Pertinent family history: Patient adopted Surgical History Surgical History History of cholecystectomy Social History Social History Household Members: Family Household Members Other:: dad & brother Housing: House Do you presently have visiting nurse or other home services: No Unable to assess alcohol history related to: Unknown Patient Tobacco Use Status: Former Tobacco user Tobacco use type: Cigarette e-Cigarette/Vaping Use: Never Used Second Hand Smoke Exposure: No Use of substances other than those prescribed or required for medical reasons: Yes Substance Use Type: Marijuana Substance Use Frequency: Daily Last Used Substance: Weeks (ago) Last Used Substance Other:: 5 weeks ago Currently Displaying Signs/Symptoms of Drug Intoxication Withdrawal: No Any prior treatment program specific to substance use: No Have you been hit, kicked, punched, or otherwise hurt by someone within the past year? If so, by whom?: No Do you feel safe in your current relationship?: No Current Relationship Is there a partner from a previous relationship who is making you feel unsafe now?: No Are you made to feel afraid or neglected: No Spiritual Healthcare Practices: none [employer] Healthcare Practices: none Cultural Healthcare Practices: none Advance Directives: No Do you have thoughts of harming others: None Do you have a plan to hurt others: No Plan Recently lost weight without trying: No Nutrition Risks: No Nutritional Risk Patient : No : No Poor oral hygiene: No service: No Meds Allergies Allergy/AdvReac Type Severity Reaction Status Date / Time metoclopramide [From Reglan] Allergy Muscle Verified 01/08/21 20:46 cramps haloperidol [From Haldol] AdvReac Severe Dystonia Verified 01/08/21 20:46 sucralfate [From Carafate] AdvReac Severe vomiting Verified 01/08/21 20:46 Active Medications: Current Medications Acetaminophen (Acetaminophen 325 Mg Tablet) 650 mg PO Q6H PRN PRN Reason: Pain, Mild (Pain Scale 1-3) Enoxaparin Sodium (Enoxaparin Sodium 40 Mg/0.4 Ml Syringe) 40 mg SUBCUT Q24H [facility] Last Admin: 01/08/21 21:43 Dose: 40 mg Documented by: Levetiracetam (Keppra) 500 mg in 100 mls @ 400 mls/hr IV Q12H [facility] Last Infusion: 01/09/21 09:21 Dose: Infused Documented by: Ondansetron HCl (Ondansetron Hcl 4 Mg/2 Ml Vial) 4 mg IVPUSH Q8H PRN PRN Reason: Nausea and Vomiting Last Admin: 01/09/21 05:56 Dose: 4 mg Documented by: Sodium Chloride (0.9 % Sodium Chloride Flush 3 Ml Syringe) 3 ml IVFLUSH QSHIFT [facility] Last Admin: 01/09/21 09:05 Dose: 3 ml Documented by: Home Medications Medication Instructions Recorded Confirmed Last Taken Type L norgest/E estradiol-E estrad 1 tab PO DAILY 01/09/21 01/09/21 Unknown History 0.15 mg-30 mcg (84)/10 mcg(7) tabs,3mos bupropion HCl 300 mg 24 hr tablet, 1 tab PO DAILY 01/09/21 01/09/21 Unknown History extended release lansoprazole 30 mg delayed 30 mg PO DAILY 01/09/21 01/09/21 Unknown History release,disintegrating tablet metoclopramide HCl 5 mg tablet 1 tab PO QID 01/09/21 01/09/21 Unknown History olanzapine 15 mg disintegrating 1 tab PO BEDTIME 01/09/21 01/09/21 Unknown History tablet Physical Exam Vital Signs: Vital Signs: Last Vital Signs Temp 98.9 F 01/09/21 15:55 Pulse 84 01/09/21 15:55 Resp 18 01/09/21 15:55 BP 106/58 L 01/09/21 15:55 Pulse Ox 100 01/09/21 15:55 Body Mass Index 27.2 Const: Other: General - no acute distress, appears comfortable Cardiovascular - regular rate and rhythm, S1-S2 Lungs - normal respiratory effort, clear to auscultation bilaterally, no wheezing Abdomen - soft, nontender, no rebound or guarding Extremities - no edema bilaterally Neuro - awake and alert, no focal deficits General: cooperative and no acute distress Orientation/consciousness: patient oriented x3 Eyes: General: appearance normal, both eyes and all related structures Pupils: Equal, round and reactive pupils present Resp: Effort & Inspection: normal respiratory effort Auscultation: clear to auscultation bilaterally Cardio: Rate: regular rate Rhythm: regular rhythm GI: Palpation (GI): Soft to palpation Auscultation: normal bowel sounds Skin: General skin exam: no rashes or lesions noted Neuro: Other: Normal neurological examination With no focal findings General: patient oriented x3 Cranial nerves: Yes Equal, round and reactive pupils present Cognition (Neuro): normal cognition Extrem: General: Yes normal to inspection and Yes no pedal edema Results Labs CBC & Chem 7: 01/09/21 06:11 01/09/21 06:11 Labs: Short CBC 01/09/21 Range/Units 06:11 WBC 5.7 (4.8-10.8) X10*3/uL Hgb 11.6 L (12.0-16.0) g/dl Hct 35.8 L (37.0-47.0) % Plt Count 512 H D (160-400) X10*3/uL BMP 01/08/21 01/09/21 22:06 06:11 Sodium 136 138 Potassium 3.9 4.6 Chloride 105 107 Carbon Dioxide 25 24 BUN 8 L 10 Creatinine 0.68 0.72 Calcium 8.3 L D 9.0 D Assessment and Plan (1) Seizure-like activity: Status: Acute It is unclear if she is having epileptic seizures or this represents psychogenic seizures. The EEG done today was predominantly drowsy and asleep the brief waking record and this was normal with no paroxysmal features. She has already been started on Keppra 500 mg twice a day as a precaution. I would recommend doing a 24-hour ambulatory EEG which can be arranged as an outpatient In terms of her psychotic behavior and mood disorder, I would leave this up to the psychiatrist's. Because of her age, psychotic episodes and possible seizure the possibility of anti-NMDA receptor encephalitis does exist, although unlikely. In this regard, I would suggest a lumbar puncture next week by the radiologist in the spinal fluid sent for routine analysis, and anti-NMDA receeptor antibody titers In terms of her pituitary lesion I would recommend a dedicated MRI with and without gadolinium with the pituitary protocol. This can also be done next week. As far as I'm concernned the patient can be transferred back to unit and the above recommendations can be followed through. This is a 25 yo F who was being treated for schizoaffective disorder on M5 and was transferred to the medical floor on 01/08 after seizure like activity. 1. Seizures -- epileptic vs non-epileptic On IV keppra -- continue for the time being EEG ordered Neurology consulted maintain seizure precautions 2. Suspected Pituitary Adenoma d/w Dr. Mamie Austin from the endocrinology clinic -- hormonal work up can be done as an outpatient. Will give her referral upon d/c. 3. Schizoaffective d/o Med rec pending -- continue meds that she was getting on M5 Psych Consult Full Code DVT pptx, Lovenox Procedures Date of Service Date of Service: 01/09/21
--- NOTE | 2021-01-09 17:38 | PM.EVENT ---
Event Note Date of Service: 01/09/21 Event Note: Met with patient on [facility], after being transferred from yesterday. Presented as guarded, suspicious, some paranoia noted during encounter, although willing to meet with me. She reports that she wishes to return to when medically cleared. She reports she has not received Abilify today. Continues with some anxiety. States she does not want to miss appointment today with [facility] worker. Discussed case with Dr. Del Cid, recommend hold Abilify at this time. Patient not medically cleared at this time, awaiting Neurology. Discussed case with Gauri White APRN, provider on . This typewriter tester will defer case to psychiatry providers at this time. Thank you.
[2021-01-09 20:00] VITALS: BP 123/77; PULSE 89; RESP 18; TEMP 36.6; O2SAT 100
[2021-01-09] MEDS: LORazepam 2 MG/ML VIAL 1 MG IVPUSH (21:48)
[2021-01-09] MEDS: Enoxaparin Sodium 40 MG/0.4 ML SYRINGE SUBCUT (21:54)
[2021-01-10] VITALS (7 sets, daily range): BP systolic 91–119; BP diastolic 52–82; PULSE 79–102; RESP 18–20; TEMP 36.3–36.9; O2SAT 95–100
--- NOTE | 2021-01-10 03:45 | PC.NURSE ---
Rapid response called for pt d/t seizures that started at 19:53 and lasted a minute. Vitals were taken O2: 100, BP 118/66, RR19, P: 84. happened four more times and ended around 20:06. Overnight hospitalist aware and 1mg Ativan ordered
--- NOTE | 2021-01-10 08:22 | HO.PM.IMPN ---
Subjective Subjective Date of Service: 01/10/21 Interval History: Seen in f/u for seizure, possible Psychogenic seizue, had an episode this morning. Review of Systems no seizure this morning no fever Physical Exam Vital Signs: Vital Signs: Last Vital Signs Temp 98.4 F 01/10/21 03:18 Pulse 94 01/10/21 03:18 Resp 18 01/10/21 03:18 BP 106/56 L 01/10/21 03:18 Pulse Ox 95 01/10/21 03:18 Body Mass Index 27.2 Const: Other: General: AO X 3, no acute distress Resp: CTA bilateral CVS: S1,S2,RRR GI: +BS, NT, no distention Skin: No rash Neuro: motor grossly intact Psych: appropriate affect Objective Data Active Medications Acetaminophen (Acetaminophen 325 Mg Tablet) 650 mg PO Q6H PRN PRN Reason: Pain, Mild (Pain Scale 1-3) Enoxaparin Sodium (Enoxaparin Sodium 40 Mg/0.4 Ml Syringe) 40 mg SUBCUT Q24H [facility] Last Admin: 01/09/21 21:54 Dose: 40 mg Documented by: DEMARCO Levetiracetam (Keppra) 500 mg in 100 mls @ 400 mls/hr IV Q12H [facility] Last Infusion: 01/09/21 23:36 Dose: 0 mls/hr Documented by: DEMARCO Ondansetron HCl (Ondansetron Hcl 4 Mg/2 Ml Vial) 4 mg IVPUSH Q8H PRN PRN Reason: Nausea and Vomiting Last Admin: 01/09/21 05:56 Dose: 4 mg Documented by: NEO Sodium Chloride (0.9 % Sodium Chloride Flush 3 Ml Syringe) 3 ml IVFLUSH QSHIFT [facility] Last Admin: 01/09/21 21:56 Dose: 3 ml Documented by: DEMARCO Labs CBC & Chem 7: 01/09/21 06:11 01/09/21 06:11 Assessment and Plan (1) Seizure-like activity: Status: Acute Assessment and Plan: This is a 25 yo F who was being treated for schizoaffective disorder on M5 and was transferred to the medical floor on 01/08 after seizure like activity. 1. Seizures -- epileptic vs non-epileptic On IV keppra -- continue for the time being EEG no siezure activity Neurology recommends continuing with Keppra, MRI w/ and w/o contrast, LP--all can be done while on Psych unit maintain seizure precautions--if no further seizure next 24 hours then transfer back to Psych 2. Suspected Pituitary Adenoma d/w Dr. Mamie Austin from the endocrinology clinic -- hormonal work up can be done as an outpatient. Will give her referral upon d/c.\ MR as above 3. Schizoaffective d/o Med rec pending -- continue meds that she was getting on M5 Psych following Full Code DVT pptx, Lovenox Transfer to Psych when medically stable. Quality Stroke Does the patient have a stroke diagnosis?: No VTE Prior VTE?: No VTE Risk Level:: Medical - moderate - high VTE Device Contraindication: Treatment Not Indicated VTE Drug Contraindication: N/A - Med Ordered
[2021-01-10] MEDS: levETIRAcetam in NaCl (iso-os) 500 MG/100 ML PIGGYBACK 100 MG IV (10:18)
[2021-01-10] MEDS: 0.9 % Sodium Chloride Flush 3 ML SYRINGE IVFLUSH ×3 (10:23→21:49)
[2021-01-10] MEDS: Enoxaparin Sodium 40 MG/0.4 ML SYRINGE SUBCUT (21:45)
[2021-01-10] MEDS: levETIRAcetam in NaCl (iso-os) 500 MG/100 ML PIGGYBACK 400 MG IV (21:49)
[2021-01-11 03:19] VITALS: BP 99/62; PULSE 92; RESP 20; TEMP 36.4; O2SAT 99
[2021-01-11 07:52] VITALS: BP 98/53; PULSE 76; RESP 20; TEMP 36.9; O2SAT 98
[2021-01-11] MEDS: levETIRAcetam in NaCl (iso-os) 500 MG/100 ML PIGGYBACK 400 MG IV ×2 (10:11→19:42)
[2021-01-11] MEDS: 0.9 % Sodium Chloride Flush 3 ML SYRINGE IVFLUSH ×2 (10:14→19:42)
--- NOTE | 2021-01-11 11:20 | P.PNIM_ITS ---
Subjective Subjective Date of Service: 01/11/21 Interval History: no seizure-like episodes since Tuesday evening anxious Review of Systems Review of Systems: Yes all other systems are reviewed and are negative Physical Exam Vital Signs: Vital Signs: Last Vital Signs Temp 98.5 F 01/11/21 07:52 Pulse 76 01/11/21 07:52 Resp 20 01/11/21 07:52 BP 98/53 L 01/11/21 07:52 Pulse Ox 98 01/11/21 07:52 Body Mass Index 27.2 Gen: in no acute distress HEENT: sclera anicteric, moist mucus membranes Neck: supple Lungs: clear to auscultation bilaterally Heart: regular rate and rhythm, no murmurs Abd: soft, non-tender, non-distended Ext: no edema Skin: warm/well-perfused Neuro: alert and oriented x3, no focal findings Psych: appropriate affect Objective Data Active Medications Acetaminophen (Acetaminophen 325 Mg Tablet) 650 mg PO Q6H PRN PRN Reason: Pain, Mild (Pain Scale 1-3) Enoxaparin Sodium (Enoxaparin Sodium 40 Mg/0.4 Ml Syringe) 40 mg SUBCUT Q24H [facility] Last Admin: 01/10/21 21:45 Dose: 40 mg Documented by: DEMARCO Levetiracetam (Keppra) 500 mg in 100 mls @ 400 mls/hr IV Q12H [facility] Last Infusion: 01/11/21 10:39 Dose: 0 mls/hr Documented by: MAARA Ondansetron HCl (Ondansetron Hcl 4 Mg/2 Ml Vial) 4 mg IVPUSH Q8H PRN PRN Reason: Nausea and Vomiting Last Admin: 01/09/21 05:56 Dose: 4 mg Documented by: NEO Sodium Chloride (0.9 % Sodium Chloride Flush 3 Ml Syringe) 3 ml IVFLUSH QSHIFT [facility] Last Admin: 01/11/21 10:14 Dose: 3 ml Documented by: AMARA Labs CBC & Chem 7: 01/09/21 06:11 01/09/21 06:11 Assessment and Plan (1) Seizure-like activity: Status: Acute Assessment and Plan: hospital d#4 25yo F who was on M5 for psychosis due to schizoaffective disorder, transferred to [facility] after seizure-like activity hx possible LOC with twitching in October attributed possibly to dystonia from metoclopramide MRI with mixed intensity, partially enhancing lesion associated with the pituitary gland extending into the suprasellar cistern concerning for pituitary adenoma # seizure-like activity - continue levetiracetam as per Neurology; outpt 24-hr ambulatory EEG; LP to obtain CSF for anti-NMDA receptor antibody [can be done while on M5] # incidental pituitary adenoma - MRI pituitary protocol with/without contrast, also can be done while on M5 - endocrinology f/u # schizoaffective disorder - continue bupropion, olanzapine as per psychiatry - awaiting psychiatrist to accept pt back to M5 # VTE ppx - SCDs Quality Stroke Does the patient have a stroke diagnosis?: No VTE Prior VTE?: No VTE Risk Level:: Medical - moderate - high VTE Device Contraindication: Treatment Not Indicated VTE Drug Contraindication: N/A - Med Ordered
[2021-01-11 11:49] VITALS: BP 101/64; PULSE 100; RESP 16; TEMP 36.8; O2SAT 100
[2021-01-11 15:11] VITALS: BP 114/63; PULSE 83; RESP 20; TEMP 36.4; O2SAT 100
[2021-01-11 19:01] VITALS: BP 102/63; PULSE 93; RESP 20; TEMP 36.6; O2SAT 99
[2021-01-11 23:07] VITALS: BP 106/51; PULSE 73; RESP 20; TEMP 36.9; O2SAT 98
[2021-01-12 03:25] VITALS: BP 104/57; PULSE 68; RESP 18; TEMP 37; O2SAT 98
[2021-01-12 07:47] VITALS: BP 108/58; PULSE 77; RESP 18; TEMP 37.1; O2SAT 99
[2021-01-12] MEDS: 0.9 % Sodium Chloride Flush 3 ML SYRINGE IVFLUSH ×3 (08:05→20:05)
[2021-01-12] MEDS: levETIRAcetam in NaCl (iso-os) 500 MG/100 ML PIGGYBACK 400 MG IV (08:07)
[2021-01-12 11:20] VITALS: BP 131/60; PULSE 91; RESP 18; TEMP 36.6; O2SAT 100
--- NOTE | 2021-01-12 12:22 | MHC.CM.PN ---
per rounds dc date not determined at this time
--- NOTE | 2021-01-12 14:10 | P.PNIM_ITS ---
Subjective Subjective Date of Service: 01/12/21 Interval History: C/o chronic abd pain/nausea/vomiting Was able to eat half a cheeseburger for lunch Refuses all PO meds, saying they will trigger her abd pain/nausea/vomiting Sees GI at [facility] No further seizure-like episodes Leery of cristóbal Singhppra suspension Review of Systems Review of Systems: Yes all other systems are reviewed and are negative Physical Exam Vital Signs: Vital Signs: Last Vital Signs Temp 97.9 F 01/12/21 11:20 Pulse 91 01/12/21 11:20 Resp 18 01/12/21 11:20 BP 131/60 01/12/21 11:20 Pulse Ox 100 01/12/21 11:20 Body Mass Index 27.2 Gen: in no acute distress HEENT: sclera anicteric, moist mucus membranes Neck: supple Lungs: clear to auscultation bilaterally Heart: regular rate and rhythm, no murmurs Abd: soft, non-tender, non-distended Ext: no edema Skin: warm/well-perfused Neuro: alert and oriented x3, no focal findings Psych: guarded Objective Data Active Medications Acetaminophen (Acetaminophen 325 Mg Tablet) 650 mg PO Q6H PRN PRN Reason: Pain, Mild (Pain Scale 1-3) Bupropion HCl (Bupropion Hcl Xl 300 Mg Tab.Er.24h) 300 mg PO DAILY [facility] Last Admin: 01/12/21 08:07 Dose: Not Given Documented by: LAMBERTO Non-Admin Reason: Patient Refused Levetiracetam (Keppra) 500 mg in 100 mls @ 400 mls/hr IV Q12H [facility] Last Infusion: 01/12/21 08:54 Dose: 0 mls/hr Documented by: LAMBERTO Olanzapine (Olanzapine 7.5 Mg Tablet) 15 mg PO BEDTIME [facility] Last Admin: 01/11/21 19:43 Dose: Not Given Documented by: TONE Non-Admin Reason: Patient Refused Omeprazole (Omeprazole 20 Mg Capsule.) 20 mg PO DAILY [facility] Last Admin: 01/12/21 08:07 Dose: Not Given Documented by: LAMBERTO Non-Admin Reason: Patient Refused Ondansetron HCl (Ondansetron Hcl 4 Mg/2 Ml Vial) 4 mg IVPUSH Q8H PRN PRN Reason: Nausea and Vomiting Last Admin: 01/09/21 05:56 Dose: 4 mg Documented by: TUMASY Sodium Chloride (0.9 % Sodium Chloride Flush 3 Ml Syringe) 3 ml IVFLUSH QSHIFT [facility] Last Admin: 01/12/21 08:05 Dose: 3 ml Documented by: LAMBERTO Labs CBC & Chem 7: 01/09/21 06:11 01/09/21 06:11 Assessment and Plan (1) Seizure-like activity: Status: Acute Assessment and Plan: hospital d#4 25yo F who was on M5 for psychosis due to schizoaffective disorder, transferred to [facility] after seizure-like activity hx possible LOC with twitching in October attributed possibly to dystonia from metoclopramide MRI with mixed intensity, partially enhancing lesion associated with the pituitary gland extending into the suprasellar cistern concerning for pituitary adenoma chronic abd pain/PO med intolerance # seizure-like activity - try oral Keppra liquid; otherwise, per Neurology, d/c Keppra and check outpt ambulatory 24-48hr EEG # chronic abd pain - Dr Gomez consulted 12/11/20. DDX: functional dyspepsia, gastroparesis, gastritis, esophagitis, GERD, less likely central cause, medication effect, mast cell diorder - I would also add possibility of cyclic vomiting/cannabinoid hyperemesis - will request [facility] GI records - will order stool tests: calprotectin + H pylori antigen. check serum elastase , tryptase, histamine. celiac serology negative - re-consult GI - check GES - ?EGD + C-scope? outpt? # schizoaffective disorder - per Neurology, will perform LP and check anti-NMDA receptor antibodies [was going to be done from M5 but psychiatrist requested we keep pt to do the study] - ultimately, it is likely that her other issues are secondary to a primary ps ychiatric disorder- will discuss with psychiatrist # incidental pituitary adenoma - MRI pituitary protocol with/without contrast, outpt endocrinology f/u # VTE ppx - SCDs Quality Stroke Does the patient have a stroke diagnosis?: No VTE Prior VTE?: No VTE Risk Level:: Medical - moderate - high VTE Device Contraindication: Treatment Not Indicated VTE Drug Contraindication: N/A - Med Ordered
[2021-01-12 15:04] LABS: Prothrombin Time 10.8 SEC (9.9-13.0)
[2021-01-12 15:07] LABS: Partial Thromboplastin Time 46.5 SEC (24.1-38.0)
[2021-01-12 15:16] LABS: HCG Quantitative < 2 mIU/mL
[2021-01-12 15:24] VITALS: BP 109/62; PULSE 84; RESP 20; TEMP 36.5; O2SAT 100
[2021-01-12] MEDS: Scopolamine 1.5 MG PATCH.TD.3 EAR-BEHIND (15:59)
[2021-01-12 19:24] VITALS: BP 110/64; PULSE 78; RESP 21; TEMP 36.4; O2SAT 99
[2021-01-12] MEDS: levETIRAcetam Oral Soln 500 MG/5 ML PO (20:05)
--- NOTE | 2021-01-12 22:29 | PM.GIPN ---
Subjective Subjective Date of Service: 01/12/21 Interval History: asked to f/u after seeing pt in the in patient psych unit ongoing issues with taking PO meds due to nausea apparently has managed to take food but not meds couldn;t take lansoprazole after one dose as caused abdominal pain now being investigated for seizures with MRI revealing pituitary lesion Critical Care Time (minutes): 15 Physical Exam Vital Signs: Vital Signs: Last Vital Signs Temp 97.5 F 01/12/21 19:24 Pulse 78 01/12/21 19:24 Resp 21 H 01/12/21 19:24 BP 110/64 01/12/21 19:24 Pulse Ox 99 01/12/21 19:24 Body Mass Index 27.2 EXAM: GENERAL: The patient is well developed and nontoxic. VITAL SIGNS:see workflow HEENT: Nonicteric sclerae, PERRLA, EOMI. Oropharynx clear. Moist mucous membranes. Conjunctivae appear well perfused. No thyroid mass. CHEST: Chest wall is nontender. HEART: Regular rate and rhythm without murmurs. LUNGS: Clear to auscultation bilaterally. ABDOMEN: Soft, positive bowel sounds, nontender, no organomegaly.no flank tenderness SKIN: No rash, no excessive bruising, petechiae, or purpura. NEUROLOGIC: Cranial nerves II-XII intact without motor/sensory deficit. psych- nml affect Objective Data Labs CBC & Chem 7: 01/09/21 06:11 01/09/21 06:11 Labs: Laboratory Results - last 24 hr 01/12/21 01/12/21 14:41 14:41 PT 10.8 INR 1.0 APTT 46.5 H Beta HCG, Quant < 2 Procedures Date of Service Date of Service: 01/12/21 Progress Note: A&P Assessment and plan (1) Nausea: Status: Acute Assessment and Plan: 1/ Unclear if her nausea is organic in origin or psychosomatic given she has been taking food with apparent ease. There may be central effect from seizure disorder or pituitary lesion. She had extensive GI w/u with [facility] at [facility] PLAN: 1/ trial of scopolamine patch since she states she cannot take PO meds, 2/ cont neuro w/u--if neg can consider EGD for further assessment but my feeling is it will be low yield, GES is ordered and pending Fall Risk Details Current Medications: Current Medications Levetiracetam (Levetiracetam Oral Soln 500 Mg/5 Ml) 500 mg PO BID [facility] Last Admin: 01/12/21 20:05 Dose: 500 mg Documented by: Ondansetron HCl (Ondansetron Hcl 4 Mg/2 Ml Vial) 4 mg IVPUSH Q8H PRN PRN Reason: Nausea and Vomiting Last Admin: 01/09/21 05:56 Dose: 4 mg Documented by: Scopolamine (Scopolamine 1.5 Mg Patch.Td.3) 1.5 mg EAR-BEHIND Q72H [facility] Last Admin: 01/12/21 15:59 Dose: 1.5 mg Documented by: Sodium Chloride (0.9 % Sodium Chloride Flush 3 Ml Syringe) 3 ml IVFLUSH QSHIFT [facility] Last Admin: 01/12/21 20:05 Dose: 3 ml Documented by: Time Spent With Patient Time: Total time spent is greater than 50% in coordination of care (as documented) at patient's floor/unit and/or counseling patient: Time with patient: 15 - 24 minutes Quality Stroke Does the patient have a stroke diagnosis?: No VTE Prior VTE?: No VTE Risk Level:: Medical - moderate - high VTE Device Contraindication: Treatment Not Indicated VTE Drug Contraindication: N/A - Med Ordered
[2021-01-12 23:21] VITALS: PULSE 78
[2021-01-13] VITALS (7 sets, daily range): BP systolic 92–112; BP diastolic 59–65; PULSE 58–71; RESP 16–20; TEMP 36.4–37; O2SAT 98–100
[2021-01-13] MEDS: 0.9 % Sodium Chloride Flush 3 ML SYRINGE IVFLUSH (08:56)
--- NOTE | 2021-01-13 11:20 | PC.NURSE ---
Patient is currently downstairs having Lumbar puncture. aware and agrees with procedure
--- NOTE | 2021-01-13 12:32 | HO.RADPN ---
RADIOLOGY Narrative Narrative: LP performed using 22g spinal needle at L3/L4. 4 mL clear CSF removed. Opening pressure not elevated measuring 3 cm h20.
--- NOTE | 2021-01-13 12:41 | PC.NURSE ---
on bedrest lying flat s/p LP. Patient aware and agrees with plan of care. VS q 30min
[2021-01-13 13:02] LABS: CSF Appearance Clear, Colorless; CSF Tube # 2
[2021-01-13 13:04] LABS: Glucose CSF 49 mg/dL
--- NOTE | 2021-01-13 13:18 | HO.PM.IMPN ---
Subjective Subjective Date of Service: 01/13/21 Interval History: tried oral Keppra solution last night and says it made her stomach hurt. she is angry and frustrated NPO for LP today Review of Systems Review of Systems: Yes all other systems are reviewed and are negative Physical Exam Vital Signs: Vital Signs: Last Vital Signs Temp 98.2 F 01/13/21 12:31 Pulse 58 01/13/21 12:59 Resp 18 01/13/21 12:59 BP 112/59 L 01/13/21 12:59 Pulse Ox 100 01/13/21 12:59 Body Mass Index 27.2 Gen: anxious, frustrated HEENT: sclera anicteric, moist mucus membranes Neck: supple Lungs: clear to auscultation bilaterally Heart: regular rate and rhythm, no murmurs Abd: soft, non-tender, non-distended Ext: no edema Skin: warm/well-perfused Neuro: alert and oriented x3, no focal findings Psych: guarded Objective Data Active Medications Levetiracetam (Levetiracetam Oral Soln 500 Mg/5 Ml) 500 mg PO BID [facility] Last Admin: 01/13/21 08:56 Dose: Not Given Documented by: AUGUST Non-Admin Reason: Patient Refused Ondansetron HCl (Ondansetron Hcl 4 Mg/2 Ml Vial) 4 mg IVPUSH Q8H PRN PRN Reason: Nausea and Vomiting Last Admin: 01/09/21 05:56 Dose: 4 mg Documented by: NEO Scopolamine (Scopolamine 1.5 Mg Patch.Td.3) 1.5 mg EAR-BEHIND Q72H [facility] Last Admin: 01/12/21 15:59 Dose: 1.5 mg Documented by: LAMBERTO Sodium Chloride (0.9 % Sodium Chloride Flush 3 Ml Syringe) 3 ml IVFLUSH QSHIFT [facility] Last Admin: 01/13/21 08:56 Dose: 3 ml Documented by: AUGUST Labs CBC & Chem 7: 01/09/21 06:11 01/09/21 06:11 Labs: Laboratory Results - last 24 hr 01/12/21 01/12/21 01/13/21 14:41 14:41 Unknown PT 10.8 INR 1.0 APTT 46.5 H Beta HCG, Quant < 2 CSF Glucose 49 CSF Total Protein 22.0 Assessment and Plan (1) Seizure-like activity: Status: Acute Assessment and Plan: hospital d#5 25yo F who was on M5 for psychosis due to schizoaffective disorder, transferred to [facility] after seizure-like activity hx possible LOC with twitching in October attributed possibly to dystonia from metoclopramide MRI with mixed intensity, partially enhancing lesion associated with the pituitary gland extending into the suprasellar cistern concerning for pituitary adenoma chronic abd pain/PO med intolerance # seizure-like activity - at this point, I believe the safest and most acceptable solution is for the pt to return to and continue IV Keppra with the hope that improving her psychiatric condition would then improve her willingness to transition to oral medications - at some point, she should get an ambulatory 24-48 hr EEG. I tried to arrange this for when she returns to but it really isn't feasible with scheduling. so will have to wait until she is discharged from # chronic abd pain - Dr Gomez consulted 12/11/20. DDX: functional dyspepsia, gastroparesis, gastritis, esophagitis, GERD, less likely central cause, medication effect, mast cell diorder - I would also add possibility of cyclic vomiting/cannabinoid hyperemesis - requested [facility] records - will order stool tests: calprotectin + H pylori antigen. checking serum elastase , tryptase, histamine. celiac serology negative - will order gastric emptying study for tomorrow but can be done while she is on M5 # schizoaffective disorder - per Neurology, will perform LP and check anti-NMDA receptor antibodies [was going to be done from but psychiatrist requested we keep pt to do the study] - ultimately, it is likely that her other issues are secondary to a primary psychiatric disorder- will discuss with psychiatrist # incidental pituitary adenoma - MRI pituitary protocol with/without contrast, outpt endocrinology f/u # VTE ppx - SCDs Quality Stroke Does the patient have a stroke diagnosis?: No VTE Prior VTE?: No VTE Risk Level:: Medical - moderate - high VTE Device Contraindication: Treatment Not Indicated VTE Drug Contraindication: N/A - Med Ordered
[2021-01-13 14:41] LABS: Appearance CSF CLEAR; CSF Tube # 1; Color CSF COLORLESS; Red Blood Cell CSF 1 MM*3; White Blood Cell CSF 0 MM*3
[2021-01-13 14:42] LABS: Appearance CSF CLEAR; CSF Tube # 4; Color CSF COLORLESS; Neutrophils CSF 0 %; Red Blood Cell CSF 0 MM*3; White Blood Cell CSF 0 MM*3
--- NOTE | 2021-01-13 14:48 | PM.DS ---
DS: Providers Provider Date of Service: 01/13/21 Date of admission: 01/08/21 20:18 Primary care physician: Unknown Physician Consults: 01/08/21 20:23 Consult to Neurology Routine Consulting Provider: [facility] Reason for consultation: seizure like activity Has provider been notified: No 01/09/21 06:36 Consult to Psychiatry Routine Consulting Provider: Psych [facility] Reason for consultation: inpatient u pt Has provider been notified: No 01/10/21 06:15 Consult to Crisis Stat Reason for consultation: medically ready to return to Psych Has provider been notified: No 01/12/21 08:18 Consult to Gastroenterology Routine Consulting Provider: [facility] Reason for consultation: GI intolerance of almost every medication DS: Diagnosis Discharge Diagnosis (1) Seizure-like activity: Status: Acute (2) Pituitary neoplasm: Status: Acute (3) Chronic abdominal pain: Status: Acute DS: Summary Hospital Course Hospital Course: from H+P by admitting hospitalist Leonid Ward MD, 01/08/21: 25-year-old female with past medical history of bipolar/schizophrenia, admitted to [facility] for this same who had a rapid response call on her around 7:00 p.m. due to seizure-like activity.? Patient was seen by my colleague, given patient continues seizing therefore nursing staff as well as ICU recommended transfer to [facility].? When I saw the patient she was awake, alert, oriented, able to give history well, her father and mother were at bedside.? Her mother is a psychologist in her father is a physician in the area.? The patient herself says that she had about 2 similar episodes in the past, she was evaluated at an outside hospital, with an EEG and was told that she does not have seizure.? She reports that she felt like her seizure was coming today, she had a headache, and when she came about she was postictal.? She denies any loss of bowel or bladder control and tongue bite. She currently complaining of abdominal pain but otherwise has no chest pain, no shortness of breath, no nausea or vomiting, no diarrhea constipation, no urinary symptoms and no lower extremity edema.? Vitals show no abnormality, I obtained BMP which will showed no significant abnormality, troponin is negative.? Lactic acid is 1.4, no other significant abnormality. Patient did have an MRI ordered by the psychiatrist earlier today which showed no demonstrated acute intracranial abnormality, makes intensity partially enhancing lesion associated with the pituitary gland extending into the suprasellar cistern.? Patient also had an EEG that was reviewed by Neurology back in November.? Per the Neurology report EEG suggesting mild left temporal slowing, no clinical or EEG evidence of seizure disorder.? Noncontrast head CT okay, recommend obtaining an MRI of the brain with and without contrast to rule out any focal lesion.? This type of abnormality could also be abnormal Patient will be admitted to the medical floor for further management This 25yo F who was on M5 for psychosis due to schizoaffective disorder was transferred to the [facility] after seizure-like activity. She has a history of possible syncope with twitching movements back in the [facility] ED in October 2020 attributed possibly to dystonia from metoclopramide. She was started on IV Keppra. MRI of the brain showed a mixed intensity, partially enhancing lesion associated with the pituitary gland extending into the suprasellar cistern concerning for pituitary adenoma; dedicated pituitary MRI showed pituitary adenoma vs. small craniopharyngioma. Regarding this, she should have outpatient Endocrinology and Neurosurgery consultations. Regarding her seizures, we attempted to transition her to PO Keppra liquid but she did not tolerate it. It turns out that she has a longstanding history of PO medication intolerance and is undergoing workup by Gastroenterology at [facility]. She had actually had a consultation with our GI back in November; differential at that time included functional dyspepsia, gastroapresis, gastritis, esophagitis, GERD, medication effect, and mast cell disorder. I resumed the biochemical workup by sending serum elastase, tryptase, and histamine. Celiac serology was negative. Stool tests for calprotectin and Helicobacter pylori antigen are ordered and can be sent from . I did arrange a gastric emptying study for 01/14/21. The possibility of cyclic vomiting/cannabinoid hyperemesis should be considered. Ultimately, she may require EGD as an outpatient. At Neurology's suggestion, we did perform an LP to send anti-NMDA receptor antibodies, which are a sendout test to be followed by Psychiatry. It seems at this point that the priority should be treating her schizoaffective disorder and she was transferred back to for definitive management. As her psychiatric symptoms improve, the hope is that her GI symptoms improve and she becomes more willing to try oral medications. Time Spent with Patient Time attestation: Total time spent providing and/or coordinating discharge services: Discharge coordination time: Greater than 30 minutes Quality: Stroke Does the patient have a stroke diagnosis?: No Physical Exam Vital Signs: Vital Signs: Last Vital Signs Temp 98.2 F 01/13/21 12:31 Pulse 63 01/13/21 14:30 Resp 18 01/13/21 14:30 BP 107/65 01/13/21 14:30 Pulse Ox 99 01/13/21 14:30 Gen: anxious, frus trated HEENT: scle ra anicteric, mois t mucus membranes Neck: supple Lungs : clear to auscult ation bilaterally Heart: regular rat e and rhythm, no m urmurs Abd: soft, non-tender, non-di stended Ext: no ed stanley Skin: warm/wel l-perfused Neuro: alert and oriented x3, no focal find ings Psych: guarde d Body Mass Index 27.2 DS: Data Data Completed and Pending Completed studies during hospitalization [Text1]: ITS Impressions Brain MRI 01/12/21 08:00 IMPRESSION: 1. Redemonstrated 0.7 cm nodular lesion centered within the suprasellar cistern. This lesion appears intimately related to the superior margin of the pituitary gland but also abuts the anterior margin of the pituitary infundibulum and undersurface of the optic chiasm. There appears to be both cystic and solid components of this lesion. Leading considerations would include an underlying pituitary microadenoma versus small craniopharyngioma. 2. No acute intracranial abnormalities. No additional abnormal intracranial enhancement. Laboratory Tests 01/08/21 01/08/21 01/08/21 22:06 22:06 22:06 WBC RBC Hgb Hct MCV MCH MCHC RDW Plt Count MPV Immature Gran % (Auto) Neut % (Auto) Lymph % (Auto) [place] % (Auto) Eos % (Auto) Baso % (Auto) Lymph # (Auto) [place] # (Auto) Eos # (Auto) Baso # (Auto) Abs Immat Gran (auto) Absolute Neuts (auto) Absolute Nucleated RBC Nucleated RBC % (auto) PT INR APTT Sodium 136 Potassium 3.9 Chloride 105 Carbon Dioxide 25 Anion Gap 10 L BUN 8 L Creatinine 0.68 Estim Creat Clear Calc 132.1 Estimated GFR > 60 Random Glucose 116 H Lactic Acid 1.4 Calcium 8.3 L D Troponin I High Sens < 3.5 Tryptase Beta HCG, Quant CSF Tube Number CSF Volume CSF Appearance CSF Color CSF WBC CSF RBC CSF Neutrophils CSF Appearance (b) CSF Glucose CSF Total Protein 01/09/21 01/09/21 01/12/21 06:11 06:11 14:41 WBC 5.7 RBC 3.71 L Hgb 11.6 L Hct 35.8 L MCV 96.5 MCH 31.3 MCHC 32.4 RDW 14.3 Plt Count 512 H D MPV 9.0 L Immature Gran % (Auto) 0.2 Neut % (Auto) 49.2 Lymph % (Auto) 37.8 [place] % (Auto) 10.6 Eos % (Auto) 1.8 Baso % (Auto) 0.4 Lymph # (Auto) 2.1 [place] # (Auto) 0.6 Eos # (Auto) 0.1 Baso # (Auto) 0.0 Abs Immat Gran (auto) 0.01 Absolute Neuts (auto) 2.8 Absolute Nucleated RBC 0.000 Nucleated RBC % (auto) 0.0 PT INR APTT Sodium 138 Potassium 4.6 Chloride 107 Carbon Dioxide 24 Anion Gap 12 BUN 10 Creatinine 0.72 Estim Creat Clear Calc 124.8 Estimated GFR > 60 Random Glucose 93 Lactic Acid Calcium 9.0 D Troponin I High Sens Tryptase 4.7 Beta HCG, Quant CSF Tube Number CSF Volume CSF Appearance CSF Color CSF WBC CSF RBC CSF Neutrophils CSF Appearance (b) CSF Glucose CSF Total Protein 01/12/21 01/12/21 01/13/21 14:41 14:41 Unknown WBC RBC Hgb Hct MCV MCH MCHC RDW Plt Count MPV Immature Gran % (Auto) Neut % (Auto) Lymph % (Auto) [place] % (Auto) Eos % (Auto) Baso % (Auto) Lymph # (Auto) [place] # (Auto) Eos # (Auto) Baso # (Auto) Abs Immat Gran (auto) Absolute Neuts (auto) Absolute Nucleated RBC Nucleated RBC % (auto) PT 10.8 INR 1.0 APTT 46.5 H Sodium Potassium Chloride Carbon Dioxide Anion Gap BUN Creatinine Estim Creat Clear Calc Estimated GFR Random Glucose Lactic Acid Calcium Troponin I High Sens Tryptase Beta HCG, Quant < 2 CSF Tube Number 2 CSF Volume CSF Appearance CSF Color CSF WBC CSF RBC CSF Neutrophils CSF Appearance (b) Clear, Colorless CSF Glucose 49 CSF Total Protein 22.0 01/13/21 01/13/21 Unknown Unknown WBC RBC Hgb Hct MCV MCH MCHC RDW Plt Count MPV Immature Gran % (Auto) Neut % (Auto) Lymph % (Auto) [place] % (Auto) Eos % (Auto) Baso % (Auto) Lymph # (Auto) [place] # (Auto) Eos # (Auto) Baso # (Auto) Abs Immat Gran (auto) Absolute Neuts (auto) Absolute Nucleated RBC Nucleated RBC % (auto) PT INR APTT Sodium Potassium Chloride Carbon Dioxide Anion Gap BUN Creatinine Estim Creat Clear Calc Estimated GFR Random Glucose Lactic Acid Calcium Troponin I High Sens Tryptase Beta HCG, Quant CSF Tube Number 1 4 CSF Volume 1.0 1.0 CSF Appearance CLEAR CLEAR CSF Color COLORLESS COLORLESS CSF WBC 0 0 CSF RBC 1 0 CSF Neutrophils 0 0 CSF Appearance (b) CSF Glucose CSF Total Protein Discharge Plan Discharge Patient Disposition: Xfer Psychiatric Hosp Referrals: Physician,Unknown J [Primary Care Provider] - 1 Week Discharge Medications: New scopolamine base [Transderm-Scop] 1 mg over 3 days Patch 3 Day 1.5 mg EAR-BEHIND Q72H Qty: 1 RF: 0 sodium chloride 0.9 % (flush) [BD PosiFlush Normal Saline 0.9] Syringe 3 ml IVFLUSH QSHIFT Qty: 1000 RF: 0 ondansetron HCl (PF) 4 mg/2 mL Solution 4 mg IVPUSH Q8H PRN (Reason: Nausea And Vomiting) Qty: 1 RF: 0 levetiracetam [Keppra] 500 mg/5 mL solution 500 mg IV BID Qty: 5 RF: 0 Discontinued metoclopramide HCl 5 mg tablet 1 tab PO QID RF: 0 olanzapine 15 mg tablet,disintegrating 1 tab PO BEDTIME RF: 0 lansoprazole 30 mg tablet,disintegrat, delay rel 30 mg PO DAILY RF: 0 bupropion HCl 300 mg tablet extended release 24 hr 1 tab PO DAILY RF: 0 L norgest/e.estradiol-e.estrad 0.15 mg-30 mcg (84)/10 mcg (7) tablets,dose pack,3 month 1 tab PO DAILY RF: 0 Discharge Orders: Discharge Order (Routine); Ordered 01/13/21 Ordered By: Jaehyun Magalie Diet: advance to usual diet Activity on Discharge: As tolerated Stand Alone Forms: Patient Portal Discharge page Care Plan Goals: mental health prevention of possible seizures GI health Health Concerns: schizoaffective disorder seizure-like activity chronic abd pain pituitary neoplasm Plan of Treatment: return to for definitive management of psychiatric symptoms continue IV Keppra 500 mg q12h and transition to PO Keppra at some point 24-48 hour ambulatory EEG as outpatient, follow up with neurology as outpatient GI workup pending: stool studies, gastric emptying study follow up with GI as outpatient follow up with Endocrinology and Neurosurgery as outpatient Assessment: See Discharge Summary
--- NOTE | 2021-01-13 15:07 | MHC.CM.PN ---
pt transferred to
--- NOTE | 2021-01-13 15:30 | PC.NURSE ---
patient no longer on bedrest. VSS during post LP recovery. no restrictionns at this time per MD order. Report called to m5. Care team will pick patient up
[2021-01-19 18:37] LABS: Histamine Plasma <1.5 ng/mL (< OR = 1.8)
== END 2021-01-13 15:31 ==
PROVIDERS: Admitting Provider Internal Medicine; Visit Provider Family Medicine
DX: R56.9 Unspecified convulsions (principal); D44.3 Neoplasm of uncertain behavior of pituitary gland; G89.29 Other chronic pain; R10.9 Unspecified abdominal pain; R11.0 Nausea; G04.81 Other encephalitis and encephalomyelitis; R07.9 Chest pain, unspecified; R00.0 Tachycardia, unspecified; F41.8 Other specified anxiety disorders; F25.0 Schizoaffective disorder, bipolar type; F12.20 Cannabis dependence, uncomplicated; Z90.49 Acquired absence of other specified parts of digestive tract; Z88.8 Allergy status to other drugs, medicaments and biological substances; Z79.3 Long term (current) use of hormonal contraceptives; Z79.899 Other long term (current) drug therapy
CPT/HCPCS: 36415; 62328; 70553; 80048; 82945; 83088; 83520; 83605; 84157; 84484; 84702; 85025; 85610; 85730; 86255; 87015; 87070; 87205; 89051; 93005; 94799; 95816; 99219; J1650; J1953; J2060; J2405

== ENCOUNTER 2021-01-13 15:38 | Inpatient (IN) | payer OTHER, SELFPAY ==
--- NOTE | ~2021-01-13 | NM_ITS ---
EXAMINATION: NM RADIONUCLIDE SOLID FOOD GASTRIC EMPTYING 4-HOUR STUDY CLINICAL INFORMATION: Chronic abdominal pain, nausea and RIBS. Patient cannot eat eggs. COMPARISON: None TECHNIQUE: A standard meal 8 ounces of ensure was administered orally to the patient. Images were obtained using a dual head gamma camera in the anterior and posterior projections over of the stomach immediately post ingestion and at hourly intervals up to 4 hours post ingestion. The anterior and posterior counts at each time interval were averaged using the geometric mean and expressed as percentage of the immediate post ingestion counts. FINDINGS: There is good visualization of activity in the stomach immediately post ingestion. As the study progresses, there is good clearance of activity from the stomach and visualization of progressively increasing small bowel activity. By the end of the study, there is almost no retention noted in the stomach. Retention in the stomach at each time interval was: 1 hour 73% (normal 37%-90%) 2 hours 34% (normal 30%-60%) 3 hours 15% 4 hours 4% (normal 0%-10%) NM/SC gastric emptying study IMPRESSION: Normal 4-hour solid food gastric emptying study. Patient had ensure for oral food.
[2021-01-13] MEDS: levETIRAcetam in NaCl (iso-os) 500 MG/100 ML PIGGYBACK 400 MG IV (17:55)
[2021-01-13 18:00] VITALS: BP 141/78; RESP 92; TEMP 36.5
--- NOTE | 2021-01-13 22:57 | PC.ADMIT ---
Pt is a 25 year old female who was originally on and got transferred to [facility] due to seizure activity. Transferred to [facility] on 01/08/21. Reasoning for coming to was due to decompensation from not taking psychiatric medications for several months. Diagnosis scizoaffecticve disorder. Was medically cleared and will continue to monitor and create a plan in teams for psychiatric treatment. Pt reported mild back pain from receiving a spinal tap for a work up. Denies SI/HI/AVH. Socially more active with peers. Anxiety is high due to not knowing the plan for tomorrow. Did eat 50 % of meal this evening. Continuing IV Keppra Q12. Will continue to monitor.
[2021-01-14 06:00] VITALS: BP 96/60; PULSE 74; RESP 16; TEMP 36.8; O2SAT 97
[2021-01-14] MEDS: levETIRAcetam in NaCl (iso-os) 500 MG/100 ML PIGGYBACK 400 MG IV (06:23)
[2021-01-14] MEDS: 0.9 % Sodium Chloride Flush 3 ML SYRINGE IVFLUSH ×2 (08:41→21:34)
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
[2021-01-14] MEDS: bisacodyL 10 MG SUPP.RECT PR (19:37)
[2021-01-14 20:00] VITALS: BP 95/62; PULSE 100; RESP 16; TEMP 36.4; O2SAT 97
[2021-01-14] MEDS: Mineral OiL enema 133 ML ENEMA PR (20:25)
[2021-01-15] MEDS: 0.9 % Sodium Chloride Flush 3 ML SYRINGE IVFLUSH (06:40)
--- NOTE | 2021-01-15 10:29 | HO.PSYCHPN ---
Subjective Subjective Date of Service: 01/15/21 Reason For Visit: schizoaffective disorder; PTSD Subjective Notes: Conditional Voluntary Healthcare Proxy: No Guardianship: No Medical Problems Affecting Mental Status: Yes Interim History: PT reports co pain and angry that having pain s/p lumbar puncture in back and goes down leg denies headache Medication Compliance: Yes Side effects from medications: No Attending Groups: Intermittent Review of Systems Acute medical concerns: Yes pain on back and down leg- if not responding to lidocaine patch will call hospitalist to see this is known risk from LP Mental Status Exam Mental Status Exam Patient Appearance: Well Grooomed and Appropriate Patient Orientation: Person, Place and Time Level of Consciousness: Awake Patient Behavior: Appropriate (though angry about pain can't tolerate po meds for pain) Mood Description: Constricted Affect Description: Angry Patient Cognition Impaired: No Ability to Follow Directions: Good Speech Pattern: Clear Hallucinations: None Delusions: Not Present Thought Process: Goal Oriented Thought Content: positive for Intact Judgement: Fair Diagnostics Vital Signs (24Hr): Vital Signs - 24 hr 01/14/21 20:00 Temperature 97.5 F Pulse Rate 100 Respiratory Rate 16 Blood Pressure 95/62 Pulse Oximetry 97 Imaging Radiology Impressions: ITS Impressions Gastric Emptying Nuclear Medicine 01/13/21 16:30 IMPRESSION: Normal 4-hour solid food gastric emptying study. Patient had ensure for oral food. Medications Medications Current Medications Acetaminophen (Acetaminophen 325 Mg Tablet) 650 mg PO Q6H PRN PRN Reason: Headache/Pain Mild Scale (1-3) Al Hydroxide/Mg Hydroxide (Magnesium Hydrox/Alum Hydrox 30 Ml Oral.Susp) 30 ml PO Q6H PRN PRN Reason: Heartburn/Nausea Magnesium Hydroxide (Milk Of Magnesia 30 Ml Oral.Susp) 30 ml PO DAILY PRN PRN Reason: Constipation Olanzapine (Olanzapine 10 Mg Tablet) 10 mg PO BID PRN PRN Reason: psychotic agitation Scopolamine (Scopolamine 1.5 Mg Patch.Td.3) 1.5 mg EAR-BEHIND Q72H [facility] Sodium Chloride (0.9 % Sodium Chloride Flush 3 Ml Syringe) 3 ml IVFLUSH QSHIFT [facility] Last Admin: 01/15/21 06:40 Dose: 3 ml Documented by: Trazodone HCl (Trazodone Hcl 50 Mg Tablet) 50 mg PO BEDTIME PRN PRN Reason: Insomnia Trolamine Salicylate/Aloe Vera (Trolamine Salicylate 10%/Aloe Cream 35.4 Gm) 1 appl TOPICAL QID PRN PRN Reason: back pain Last Admin: 01/14/21 21:40 Dose: 1 appl Documented by: Allergies Allergies Allergy/AdvReac Type Severity Reaction Status Date / Time metoclopramide [From Reglan] Allergy Muscle Verified 01/08/21 20:46 cramps haloperidol [From Haldol] AdvReac Severe Dystonia Verified 01/08/21 20:46 sucralfate [From Carafate] AdvReac Severe vomiting Verified 01/08/21 20:46 Assessment & Plan Assessment & Plan (1) Schizoaffective disorder, depressive type: Status: Acute Code(s): F25.1 - Schizoaffective disorder, depressive type Assessment and Plan: ? if this is dx (2) PTSD (post-traumatic stress disorder): Status: Acute Code(s): F43.10 - Post-traumatic stress disorder, unspecified Assessment and Plan: seems more accurate Assessment and Plan: 25 yo female, hx of PTSD, Schizoaffective Disorder. Return transfer from the medical floor s/p [id number] per team. No psychotic symptoms in one week with medication discontinuation. Plan: Discontinue Keppra IV-consulted with neurology. No scheduled psychotropic meds at this time as pt has been off for one week and has not been symptomatic. Olanzapine prn Monitor for symptoms. Continue paraneoplastic evaluation. -Prolactin, TSH, Growth Hormone, FSH, LH 24 hour urine-free cortisol 01/15/21 update pt had seizure at 5:28 SHEET METAL OPERATOR called and pt was transfered to medical unit I spent minutes with the patient and/or on the patient floor today, greater than?50% of which was spent counseling/coordinating care. Patient educated on: other (LP side effect) Informed Consent: understands Reason for contiued inpatient stay Substantial Risk for: rapid decompensation and med/psych decompensation
[2021-01-15] MEDS: Lidocaine 4 % Patch ADH..PATCH 1 PATCH TRANSDERMA (11:04)
[2021-01-15 11:28] VITALS: BP 108/63; PULSE 103; RESP 16; TEMP 36.9; O2SAT 100
[2021-01-15] MEDS: Scopolamine 1.5 MG PATCH.TD.3 EAR-BEHIND (16:05)
[2021-01-15 16:56] VITALS: BP 113/67; PULSE 90; TEMP 36.8; O2SAT 100
--- NOTE | 2021-01-15 17:56 | PC.NURSE ---
Pt started seizing at 1628 in the kitchen was lowered to the floor by staff. Rapid response called. Pt received 4 mg in total of Ativan. information assoc MD notified. Transferred to [facility] [place]. Manager Laundry notified. Family notified at 0048.
[2021-01-15] MEDS: LORazepam 2 MG/ML VIAL 1 MG IM (18:26)
--- NOTE | 2021-01-15 18:35 | PM.IMHP ---
History of Present Illness Date of Service: 01/15/21 Chief Complaint: convulsions 25-year-old female transferred from inpatient psychiatry after rapid response for convulsions. Patient was recently admitted to medical floor, from inpatient psychiatry, on 01/08/2021 for seizure PMFSH Medical History (Updated 01/14/21 @ 18:11 by Joann White APRN) Anxiety Depression IBS (irritable bowel syndrome) PTSD (post-traumatic stress disorder) Schizoaffective disorder, bipolar type Schizophrenia Umbilical hernia Surgical History History of cholecystectomy Social History Household Members: Family Household Members Other:: dad & brother Housing: House Do you presently have visiting nurse or other home services: No Unable to assess alcohol history related to: Unknown Patient Tobacco Use Status: Former Tobacco user Tobacco use type: Cigarette e-Cigarette/Vaping Use: Never Used Second Hand Smoke Exposure: No Substance Use Type: Marijuana service: No Sexual orientation: Lesbian/Greer/Homosexual Meds Allergies Allergy/AdvReac Type Severity Reaction Status Date / Time metoclopramide [From Reglan] Allergy Muscle Verified 01/08/21 20:46 cramps haloperidol [From Haldol] AdvReac Severe Dystonia Verified 01/08/21 20:46 sucralfate [From Carafate] AdvReac Severe vomiting Verified 01/08/21 20:46 Active Medications: Current Medications Acetaminophen (Acetaminophen 325 Mg Tablet) 650 mg PO Q6H PRN PRN Reason: Headache/Pain Mild Scale (1-3) Al Hydroxide/Mg Hydroxide (Magnesium Hydrox/Alum Hydrox 30 Ml Oral.Susp) 30 ml PO Q6H PRN PRN Reason: Heartburn/Nausea Lidocaine (Lidocaine 4 % Patch Adh..Patch) 1 patch TRANSDERMA DAILY PRN; Protocol PRN Reason: Pain, Mild (Pain Scale 1-3) Last Admin: 01/15/21 11:04 Dose: 1 patch Documented by: Lorazepam (Lorazepam 2 Mg/Ml Vial) 2 mg IVPUSH Q4H PRN PRN Reason: seizure Magnesium Hydroxide (Milk Of Magnesia 30 Ml Oral.Susp) 30 ml PO DAILY PRN PRN Reason: Constipation Olanzapine (Olanzapine 10 Mg Tablet) 10 mg PO BID PRN PRN Reason: psychotic agitation Olanzapine (Olanzapine 10 Mg Tablet) 10 mg PO BID PRN PRN Reason: psychosis Scopolamine (Scopolamine 1.5 Mg Patch.Td.3) 1.5 mg EAR-BEHIND Q72H [facility] Last Admin: 01/15/21 16:05 Dose: 1.5 mg Documented by: Sodium Chloride (0.9 % Sodium Chloride Flush 3 Ml Syringe) 3 ml IVFLUSH [facility] Last Admin: 01/15/21 06:40 Dose: 3 ml Documented by: Sodium Chloride (0.9 % Sodium Chloride Flush 3 Ml Syringe) 3 ml IVFLUSH [facility] Trazodone HCl (Trazodone Hcl 50 Mg Tablet) 50 mg PO BEDTIME PRN PRN Reason: Insomnia Trazodone HCl (Trazodone Hcl 50 Mg Tablet) 50 mg PO BEDTIME PRN PRN Reason: insomnnia Trolamine Salicylate/Aloe Vera (Trolamine Salicylate 10%/Aloe Cream 35.4 Gm) 1 appl TOPICAL QID PRN PRN Reason: back pain Last Admin: 01/14/21 21:40 Dose: 1 appl Documented by: Trolamine Salicylate/Aloe Vera (Trolamine Salicylate 10%/Aloe Cream 35.4 Gm) 1 appl TOPICAL QID PRN; Protocol PRN Reason: Pain, Moderate (Pain Scale 4-6 Physical Exam Vital Signs and Narrative: Vital Signs: Last Vital Signs Temp 98.3 F 01/15/21 16:56 Pulse 90 01/15/21 16:56 Resp 16 01/15/21 11:28 BP 113/67 01/15/21 16:56 Pulse Ox 100 01/15/21 16:56 Results Imaging Radiologist's Impressions: Impressions Gastric Emptying Nuclear Medicine 01/13/21 16:30 IMPRESSION: Normal 4-hour solid food gastric emptying study. Patient had ensure for oral food. Quality VTE VTE Risk Level:: Medical - low VTE Device Contraindication: Treatment Not Indicated VTE Drug Contraindication: Treatment Not Indicated
[2021-01-15 19:24] LABS: Hematocrit 35.5 % (37.0-47.0); Hemoglobin 11.6 g/dl (12.0-16.0); Mean Corpuscular HGB Conc 32.7 g/dl (31.0-35.0); Mean Corpuscular Volume 97.8 fL (80.0-98.0); Mean Platelet Volume 9.2 fL (9.4-12.3); Platelet Count 293 X10*3/uL (160-400); Red Blood Count 3.63 X10*6/uL (4.20-5.50); Red Cell Distribution Width 13.8 % (11.0-16.0); White Blood Count 4.8 X10*3/uL (4.8-10.8)
[2021-01-15 19:40] LABS: Anion Gap 14 (12-20); Blood Urea Nitrogen 8 mg/dL (9-16); Calcium 9.6 mg/dL (8.4-10.2); Carbon Dioxide 25 mmol/L (22-29); Chloride 105 mmol/L (96-108); Estimated Glomerular Filt Rate > 60; Glucose Random 74 mg/dL (60-115); Magnesium 2.1 mg/dL (1.6-2.6); Potassium 4.2 mmol/L (3.3-5.1); Sodium 140 mmol/L (135-145)
--- NOTE | 2021-03-15 16:15 | PM.PSYDC ---
DS: Providers Provider Date of Service: 03/17/21 Date of admission: 01/13/21 15:38 Date of discharge: 03/17/21 Primary care physician: Unknown Physician Admitting clinician: Joann White Attending physician on admission: Mat Christensen Consults: 01/15/21 18:30 Consult to Neurology Routine Consulting Provider: [facility] Reason for consultation: seizure - ?epileptic vs non epileptic Attending physician on discharge: Tiana Holder Discharging clinician: Tiana Holder DS: Diagnosis Discharge Diagnosis (1) Schizoaffective disorder, depressive type: (2) PTSD (post-traumatic stress disorder): Status: Acute DS: Medications Discharge Medications Home Medications: Previous Rx's Medication Instructions Recorded aripiprazole 300 mg intramuscular 300 mg IM QMONTH #1 ea 03/02/21 suspension,extended release (Abilify Maintena) aripiprazole 5 mg tablet (Abilify) 5 mg PO DAILY #30 tab 03/02/21 clonazepam 0.5 mg tablet 0.5 mg PO BID #60 tab 03/02/21 clonidine HCl 0.1 mg tablet 0.1 mg PO BID #60 tab 03/02/21 divalproex 250 mg tablet,extended 250 mg PO DAILY #3 tab 03/02/21 release 24 hr (Depakote ER) divalproex 500 mg tablet,extended 500 mg PO BEDTIME #3 tab 03/02/21 release 24 hr hydroxyzine HCl 25 mg tablet 25 mg PO TID PRN #90 tab 03/02/21 hydroxyzine HCl 50 mg tablet 50 mg PO BEDTIME #30 tab 03/02/21 lamotrigine 25 mg tablet 25 mg PO BEDTIME #30 tab 03/02/21 lorazepam 1 mg tablet 1 mg PO Q4H PRN #60 tab 03/02/21 mirtazapine 15 mg tablet 15 mg PO BEDTIME #30 tab 03/02/21 neomycin-bacitracn Zn-polymyx 3.5 1 g TOPICAL BID #1 g 03/02/21 mg-400 unit-5,000 unit/gram top oint (Triple Antibiotic) ondansetron 4 mg disintegrating 4 mg TRANSLINGUAL DAILY PRN #30 tab 03/02/21 tablet ondansetron 8 mg disintegrating 8 mg TRANSLINGUAL BEDTIME #30 tab 03/02/21 tablet Mental Status Exam Mental Status Exam Narrative: S/P seizure Data Imaging Diagnostic Imaging Impressions Gastric Emptying Nuclear Medicine 01/13/21 16:30 IMPRESSION: Normal 4-hour solid food gastric emptying study. Patient had ensure for oral food. DS: Summary Hospital Course Hospital Course: Pt initially admitted 12/08/20-01/08/21 to psychiatry for PTSD, Schizoaffective Disorder. She was transferred to medicine on 01/08/21 due to seizure, returned to psychiatry on 01/13/21 and experienced seizure activity again on 01/15/21, requiring transfer to medicine again for ongoing assessment. Time spent discussing smoking cessation with patient: 3 to 10 minutes Status at Discharge Cognitive/behavioral status at discharge: s/p seizure Functional status at discharge: bed bound Overall status at discharge: patient is not back to baseline Time Spent with Patient Time attestation: Total time spent providing and/or coordinating discharge services:not present when this occurred Time spent: Less than 30 minutes Discharge Plan Discharge Patient Disposition: er Acute Care Hospital Discharge Diagnosis: seizure Referrals: Physician,Unknown J [Primary Care Provider] - 1 Week Discharge Medications: No Action clonidine HCl 0.1 mg Tablet 0.1 mg PO BID Qty: 60 RF: 0 Triple Antibiotic 3.5mg-400 unit- 5,000 unit/gram Ointment 1 g topical BID Qty: 1 RF: 0 clonazepam 0.5 mg Tablet 0.5 mg PO BID Qty: 60 RF: 0 hydroxyzine HCl 50 mg Tablet 50 mg PO BEDTIME Qty: 30 RF: 0 ondansetron 8 mg Tablet,Disintegrating 8 mg translingual BEDTIME Qty: 30 RF: 0 lamotrigine 25 mg Tablet 25 mg PO BEDTIME Qty: 30 RF: 0 divalproex 500 mg Tablet Extended Release 24 Hr 500 mg PO BEDTIME Qty: 3 RF: 0 hydroxyzine HCl 25 mg Tablet 25 mg PO TID PRN (Reason: anxiety) Qty: 90 RF: 0 mirtazapine 15 mg Tablet 15 mg PO BEDTIME Qty: 30 RF: 0 lorazepam 1 mg Tablet 1 mg PO Q4H PRN (Reason: Anxiety) Qty: 60 RF: 0 ondansetron 4 mg Tablet,Disintegrating 4 mg translingual DAILY PRN (Reason: Nausea) Qty: 30 RF: 0 aripiprazole [Abilify] 5 mg Tablet 5 mg PO DAILY Qty: 30 RF: 0 Abilify Maintena 300 mg suspension,extended rel recon 300 mg IM QMONTH Qty: 1 RF: 0 divalproex [Depakote ER] 250 mg tablet extended release 24 hr 250 mg PO DAILY Qty: 3 RF: 0 Discharge Orders: Discharge Order (Routine); Ordered 01/15/21 Ordered By: Tiana Holder Activity on Discharge: As tolerated Care Plan Goals: transfer to medical floor then return for psych planning Health Concerns: seizure s/p LP Plan of Treatment: [facility]IST Assessment: pt seen having seizure - timed by nursing called CLINICAL EXERCISE SPECIALIST and transfer to medical Discharge Date/Time: 01/15/21 18:45
== END 2021-01-15 18:45 | disposition short-term general hospital (02) | DRG 885 ==
LOC: HO.PM5 01-14 09:15 → HO.IMC 01-15 17:48
PROVIDERS: Internal Medicine; Admitting Provider Psychiatry & Neurology Psychiatry; Visit Provider Clinical Nurse Specialist Psychiatric/Mental Health, Adult
DX: F25.1 Schizoaffective disorder, depressive type (principal); F12.20 Cannabis dependence, uncomplicated; F43.10 Post-traumatic stress disorder, unspecified; Z87.891 Personal history of nicotine dependence; Z79.899 Other long term (current) drug therapy
CPT/HCPCS: 36415; 78264; 80048; 83735; 85027; A9541; J1953; J2060

== ENCOUNTER 2021-01-15 18:42 | Inpatient (IN) | payer OTHER, SELFPAY ==
--- NOTE | 2021-01-15 18:43 | P.HPHOSP_ITS ---
History of Present Illness Date of Service: 01/15/21 Chief Complaint: convulsions 25-year-old female transferred from inpatient psychiatry after rapid response for convulsions.? Patient? was recently admitted to medical floor,? from inpatient psychiatry, on 01/08/2021 for seizure. EEG and LP were unremarkable. 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 she was initially started on Keppra but did not tolerate, was then discontinued. She was transferred back to inpatient psychiatry 01/13/2021. On 01/15/2021 at about 17:00 she had convulsions for about 20 minutes, eyes were mostly closed, did not have any trauma as she was lowered gently to floor, no incontinence, Oxygen saturation was maintained throughout, was given 4 mg of Ativan IM. Seizure then broke. patient did not appear postictal. Review of Systems Review of Systems: Constitutional: Denies fever, denies Chills Eyes: denies blurry vision ENT: denies sore throat CVS: denies chest pain Respiratory: Denies dyspnea GI: no abdominal pain : denies dysuria MSK: denies neck pain Skin: denies rash Neuro: denies specific motor weakness Psych: denies suicidal ideation Endocrine: denies heat/cold intolerance Hematologic: denies easy bleeding Allergy: denies hives [facility] Medical History Anxiety Depression IBS (irritable bowel syndrome) PTSD (post-traumatic stress disorder) Schizoaffective disorder, bipolar type Schizophrenia Umbilical hernia Pertinent family history: denies seizures Surgical History History of cholecystectomy Social History Household Members: Family Household Members Other:: dad & brother Housing: House Do you presently have visiting nurse or other home services: No Unable to assess alcohol history related to: Unknown Patient Tobacco Use Status: Former Tobacco user Tobacco use type: Cigarette e-Cigarette/Vaping Use: Never Used Second Hand Smoke Exposure: No Substance Use Type: Marijuana Advance Directives: No Advance Directives Information Provided: No service: No Sexual orientation: Lesbian/Greer/Homosexual Meds Allergies Allergy/AdvReac Type Severity Reaction Status Date / Time metoclopramide [From Reglan] Allergy Muscle Verified 01/08/21 20:46 cramps haloperidol [From Haldol] AdvReac Severe Dystonia Verified 01/08/21 20:46 sucralfate [From Carafate] AdvReac Severe vomiting Verified 01/08/21 20:46 Physical Exam Vital Signs and Narrative: Vital Signs: General: no acute distress HEENT: atraumatic Neck: normal to visual inspection CVS: S1, S2, RRR Resp: CTA bilateral Chest: non tender GI: soft, non tender, non distended : no CVA tenderness Skin: no rashes Extremities: no edema Neuro: Oriented X3, grossly intact Psych: flat affect Assessment and Plan (1) Seizure-like activity: Status: Acute 25F prsented with convulsions convulsions epileptic versus nonepileptic seizure seizure precautions p.r.n. Ativan neuro eval PTSD/schizoaffective psychiatry follow-up pituitary macroadenoma prolactin 6.1, beta HCG less than 2, outpatient follow-up Quality Stroke Does the patient have a stroke diagnosis?: No VTE Prior VTE?: No VTE Risk Level:: Medical - low VTE Device Contraindication: Treatment Not Indicated VTE Drug Contraindication: Treatment Not Indicated
[2021-01-15 19:05] VITALS: BP 127/72; PULSE 98; RESP 16; O2SAT 99
[2021-01-15 19:24] VITALS: BP 127/72; PULSE 98; RESP 16; O2SAT 99
[2021-01-15 19:56] VITALS: BP 108/58; PULSE 87; RESP 18; TEMP 37.1; O2SAT 98
[2021-01-15 23:53] VITALS: BP 106/53; PULSE 89; RESP 18; TEMP 37; O2SAT 97
[2021-01-16] MEDS: 0.9 % Sodium Chloride Flush 3 ML SYRINGE IVFLUSH ×4 (00:31→19:27)
[2021-01-16 03:12] VITALS: BP 96/56; PULSE 92; RESP 20; TEMP 36.9; O2SAT 97
[2021-01-16 06:18] VITALS: BMI 27.5
[2021-01-16 08:00] VITALS: BP 112/62; PULSE 93; RESP 18; TEMP 36.5; O2SAT 100
--- NOTE | 2021-01-16 09:47 | MHC.CM.PN ---
01/16/21 Female 25 DX SZ She was tx from -5 r/t SZ activity. She has been back and forth x2 from [facility] [place]. She lives with family. She is independent with all functional mobility. It has been documented that the Pt has a guardian; however, T/W has not found the guardianship document in the record. DP per Pt M_5 or home. She does not know , she appears to have no preference either way. CM will follow.
[2021-01-16 11:14] VITALS: BP 108/61; PULSE 95; RESP 18; TEMP 36.6; O2SAT 100
--- NOTE | 2021-01-16 12:27 | P.CNNE_ITS ---
History of Present Illness Data of Consult Service Date: 01/16/21 Primary Care Provider: Unknown Physician HPI Reason for consult: Seizure disorder 25 years old woman with complex underlying psychiatric history including diagnosis of schizophrenia who has been evaluated before a possible seizure disorder. She said that 1 time she went to [facility] after a seizure but was discharged on Benadryl. She was admitted on psychiatric floor and there was noted to have convulsions. Apparently dose of Keppra was given but that resulted in side effects. She was brought to medical floor where she was noted to have the seizure-like episodes but hospitalists of the way johnson suggested that this was probably more behavioral than neurological. In the middle of episodes she was relatively responsive and there was no change in her vital signs. She said that she had no clue what had happened. She only remember having a seizure and then waking up in the bed. [facility] Past Medical History Medical History Anxiety Depression IBS (irritable bowel syndrome) PTSD (post-traumatic stress disorder) Schizoaffective disorder, bipolar type Schizophrenia Umbilical hernia Surgical History Surgical History History of cholecystectomy Social History Social History Household Members: Other Household Members Other:: dad & brother Housing: Other Do you presently have visiting nurse or other home services: No Unable to assess alcohol history related to: Unknown Patient Tobacco Use Status: Former Tobacco user Tobacco use type: Cigarette e-Cigarette/Vaping Use: Never Used Second Hand Smoke Exposure: No Use of substances other than those prescribed or required for medical reasons: Yes Substance Use Type: Marijuana Last Used Substance: Weeks (ago) Currently Displaying Signs/Symptoms of Drug Intoxication Withdrawal: No Have you been hit, kicked, punched, or otherwise hurt by someone within the past year? If so, by whom?: No Do you feel safe in your current relationship?: No Current Relationship Is there a partner from a previous relationship who is making you feel unsafe now?: No Advance Directives: No Advance Directives Information Provided: No Advance Directives on File: No Do you have thoughts of harming others: None Do you have a plan to hurt others: No Plan Recently lost weight without trying: No Nutrition Risks: No Nutritional Risk Patient : No : No Poor oral hygiene: No service: No Current occupational status: disabled Sexual orientation: Lesbian/Greer/Homosexual Meds Allergies Allergy/AdvReac Type Severity Reaction Status Date / Time metoclopramide [From Reglan] Allergy Muscle Verified 01/08/21 20:46 cramps haloperidol [From Haldol] AdvReac Severe Dystonia Verified 01/08/21 20:46 sucralfate [From Carafate] AdvReac Severe vomiting Verified 01/08/21 20:46 Active Medications: Current Medications Acetaminophen (Acetaminophen 325 Mg Tablet) 650 mg PO Q6H PRN PRN Reason: Pain, Mild (Pain Scale 1-3) Ibuprofen (Ibuprofen 400 Mg Tablet) 400 mg PO Q6H PRN PRN Reason: mild pain Lorazepam (Lorazepam 2 Mg/Ml Vial) 2 mg IVPUSH Q4H PRN PRN Reason: seizure Sodium Chloride (0.9 % Sodium Chloride Flush 3 Ml Syringe) 3 ml IVFLUSH [facility] Last Admin: 01/16/21 09:52 Dose: 3 ml Documented by: Home Medications Medication Instructions Recorded Confirmed Last Taken Type L norgest/E estradiol-E estrad 1 tab PO DAILY 01/16/21 Unknown History 0.15 mg-30 mcg (84)/10 mcg(7) tabs,3mos bupropion HCl 300 mg 24 hr tablet, 1 tab PO DAILY 01/16/21 Unknown History extended release lansoprazole 30 mg delayed 30 mg PO DAILY 01/16/21 Unknown History release,disintegrating tablet ondansetron 4 mg disintegrating 0.5 tab PO Q6-8H PRN 01/16/21 Unknown History tablet scopolamine base 1 mg over 3 days 1 patch TRANSDERMAL Q3D 01/16/21 01/16/21 01/15/21 History transdermal patch Physical Exam Vital Signs: Vital Signs: Last Vital Signs Temp 97.9 F 01/16/21 11:14 Pulse 95 01/16/21 11:14 Resp 18 01/16/21 11:14 BP 108/61 01/16/21 11:14 Pulse Ox 100 01/16/21 11:14 Body Mass Index 27.5 Neuro: Other: She was alert and awake with normal spontaneity of speech fluency comprehension and affect. Pupils were round reactive. Face was symmetrical. There was no focal weakness. Plantars were flexor. Deep tendon reflexes were trace to absent. When I asked her to sit little bit up, there was bobbing movement of her trunk. Results Labs Labs: Her MRI of brain has not reveal any significant pathology. One EEG had [facility] has revealed left temporal slowing. Assessment and Plan (1) Seizure-like activity: Status: Acute 25 years old woman with complex psychiatric history has multiple episodes suggestive of seizure but clinical observation was suggesting that it might be nonepileptic in nature. Exam was nonfocal. MRI of brain did not reveal any epileptic lesion though a small pituitary lesion was noted with normal prolactin level. An EEG done in the past has revealed left temporal slowing, which was relatively nonspecific but a focal finding. At this time my recommendation is to hold antiepileptics and obtain a 48 hour ambulatory EEG. This EEG can be done here when she is in the hospital or as an outpatient. Procedures Date of Service Date of Service: 01/16/21
--- NOTE | 2021-01-16 12:52 | HO.PM.IMPN ---
Subjective Subjective Date of Service: 01/16/21 Interval History: cc: convulsions interval history: no further events Cardiovascular Cardiovascular: Reports no additional cardiovascular complaints Respiratory Respiratory: Reports no additional respiratory complaints Physical Exam Vital Signs: Vital Signs: Last Vital Signs Temp 97.9 F 01/16/21 11:14 Pulse 95 01/16/21 11:14 Resp 18 01/16/21 11:14 BP 108/61 01/16/21 11:14 Pulse Ox 100 01/16/21 11:14 Body Mass Index 27.5 General: AO X 3, no acute distress Resp: CTA bilateral, no accessory muscles used CVS: S1,S2,RRR GI: soft, non tender, non distended Neuro: motor grossly intact, alert Psych: appropriate affect, appropriate insight Objective Data Active Medications Acetaminophen (Acetaminophen 325 Mg Tablet) 650 mg PO Q6H PRN PRN Reason: Pain, Mild (Pain Scale 1-3) Ibuprofen (Ibuprofen 400 Mg Tablet) 400 mg PO Q6H PRN PRN Reason: mild pain Lorazepam (Lorazepam 2 Mg/Ml Vial) 2 mg IVPUSH Q4H PRN PRN Reason: seizure Sodium Chloride (0.9 % Sodium Chloride Flush 3 Ml Syringe) 3 ml IVFLUSH QSHIFT [facility] Last Admin: 01/16/21 09:52 Dose: 3 ml Documented by: SYLVIA Assessment and Plan (1) Seizure-like activity: Status: Acute Quality Stroke Does the patient have a stroke diagnosis?: No VTE Prior VTE?: No VTE Risk Level:: Medical - low VTE Device Contraindication: Treatment Not Indicated VTE Drug Contraindication: Treatment Not Indicated
--- NOTE | 2021-01-16 13:19 | PM.DS ---
DS: Providers Provider Date of Service: 01/16/21 Date of admission: 01/15/21 18:42 Primary care physician: Unknown Physician Consults: 01/15/21 18:41 Consult to Neurology Routine Consulting Provider: [facility] Reason for consultation: seizure - ? epileptic versus nonepileptic DS: Diagnosis Discharge Diagnosis (1) Seizure-like activity: Status: Acute DS: Summary Hospital Course Hospital Course: patient was admitted for convulsions. she had no further episodes while inpatient. she was seen by neuro who felt these were more likely non epileptic, though, would get 48hr EEG (can be done outpatient). would not continue KEppra or antiepileptic, would not use ativan for further similar events. patient will be transferred back to inpatient psychiatry. Time Spent with Patient Time attestation: Total time spent providing and/or coordinating discharge services: Discharge coordination time: Greater than 30 minutes Quality: Stroke Does the patient have a stroke diagnosis?: No Physical Exam Vital Signs: Vital Signs: Last Vital Signs Temp 97.9 F 01/16/21 11:14 Pulse 95 01/16/21 11:14 Resp 18 01/16/21 11:14 BP 108/61 01/16/21 11:14 Pulse Ox 100 01/16/21 11:14 Body Mass Index 27.5 General: AO X 3, no acute distress Resp: CTA bilateral, no accessory muscles used CVS: S1,S2,RRR GI: soft, non tender, non distended Neuro: motor grossly intact, alert Psych: appropriate affect, appropriate insight Discharge Plan Discharge Patient Disposition: Xfer Psychiatric Hosp Referrals: Physician,Unknown J [Primary Care Provider] - 1 Week Discharge Medications: No Action scopolamine base 1 mg over 3 days Patch 3 Day 1 patch TRANSDERMAL Q3D RF: 0 levetiracetam [Keppra] 500 mg/5 mL solution 500 mg IV BID Qty: 5 RF: 0 ondansetron 4 mg tablet,disintegrating 0.5 tab PO Q6-8H PRN (Reason: Nausea) RF: 0 lansoprazole 30 mg tablet,disintegrat, delay rel 30 mg PO DAILY RF: 0 bupropion HCl 300 mg tablet extended release 24 hr 1 tab PO DAILY RF: 0 L norgest/e.estradiol-e.estrad 0.15 mg-30 mcg (84)/10 mcg (7) tablets,dose pack,3 month 1 tab PO DAILY RF: 0 Discharge Orders: Discharge Order (Routine); Ordered 01/16/21 Ordered By: Leonides Roman Diet: advance to usual diet Activity on Discharge: As tolerated Stand Alone Forms: Patient Portal Discharge page
--- NOTE | 2021-01-16 13:38 | MHC.CARE ---
CARE Team approaches pt regarding signing a Conditional Voluntary Admission form. Pt refuses to sign the form and stated that she will only do so if she is given a 1:1 staff member as she is concerned about having a seizure and falling. She expressed concern over the harm that could result during a fall should she have a seizure. Pt further stated that she wants a female 1:1 and not a male due to her trauma hx. M5 charge nurse contacted to explore the possibility of a 1:1 female staff or if she is able to be placed on a section 12.
[2021-01-16 15:08] VITALS: BP 100/65; PULSE 86; RESP 20; TEMP 36.5; O2SAT 100
--- NOTE | 2021-01-16 16:18 | P.PNIM_ITS ---
Subjective Subjective Date of Service: 01/16/21 Interval History: cc: convulsion interval history: no further events Cardiovascular Cardiovascular: Reports no additional cardiovascular complaints Respiratory Respiratory: Reports no additional respiratory complaints Physical Exam Vital Signs: Vital Signs: Last Vital Signs Temp 97.7 F 01/16/21 15:08 Pulse 86 01/16/21 15:08 Resp 20 01/16/21 15:08 BP 100/65 01/16/21 15:08 Pulse Ox 100 01/16/21 15:08 Body Mass Index 27.5 General: AO X 3, no acute distress Resp: CTA bilateral, no accessory muscles used CVS: S1,S2,RRR GI: soft, non tender, non distended Neuro: motor grossly intact, alert Psych: appropriate affect, appropriate insight Objective Data Active Medications Acetaminophen (Acetaminophen 325 Mg Tablet) 650 mg PO Q6H PRN PRN Reason: Pain, Mild (Pain Scale 1-3) Ibuprofen (Ibuprofen 400 Mg Tablet) 400 mg PO Q6H PRN PRN Reason: mild pain Sodium Chloride (0.9 % Sodium Chloride Flush 3 Ml Syringe) 3 ml IVFLUSH [facility] Last Admin: 01/16/21 16:16 Dose: 3 ml Documented by: VIC Assessment and Plan (1) Seizure-like activity: Status: Acute Assessment and Plan: 25F prsented with convulsions ?convulsions neuro appreciated, more likely non eplieptic, should get 48 hr ambulatory eeg, would not give ativan for further events medically cleared for transfer back to ?PTSD/schizoaffective plan to transfer back to ?pituitary macroadenoma ?prolactin 6.1, beta HCG less than 2,? outpatient follow-up Quality Stroke Does the patient have a stroke diagnosis?: No VTE Prior VTE?: No VTE Risk Level:: Medical - low VTE Device Contraindication: Treatment Not Indicated VTE Drug Contraindication: Treatment Not Indicated
[2021-01-16 20:00] VITALS: BP 105/57; PULSE 80; RESP 20; TEMP 36.8; O2SAT 100
[2021-01-16 23:31] VITALS: BP 105/67; PULSE 65; RESP 18; TEMP 36.2; O2SAT 97
[2021-01-17 04:00] VITALS: PULSE 68
[2021-01-17 08:00] VITALS: BP 103/65; PULSE 69; RESP 18; TEMP 36.7; O2SAT 100
--- NOTE | 2021-01-17 09:03 | MHC.CARE ---
Pt is not voluntary for re-admission to . Per Joann White and Shanae Vargas plan for Pt to be discharged home with family when medically cleared. No further CARE Team intervention needed at this time.
[2021-01-17] MEDS: 0.9 % Sodium Chloride Flush 3 ML SYRINGE IVFLUSH ×3 (10:59→19:43)
--- NOTE | 2021-01-17 11:55 | HO.PM.IMPN ---
Subjective Subjective Date of Service: 01/17/21 Interval History: cc: convulsions interval history: no further events Cardiovascular Cardiovascular: Reports no additional cardiovascular complaints Respiratory Respiratory: Reports no additional respiratory complaints Physical Exam Vital Signs: Vital Signs: Last Vital Signs Temp 98.1 F 01/17/21 08:00 Pulse 69 01/17/21 08:00 Resp 18 01/17/21 08:00 BP 103/65 01/17/21 08:00 Pulse Ox 100 01/17/21 08:00 Body Mass Index 27.5 General: AO X 3, no acute distress Resp:? CTA bilateral, no accessory muscles used CVS: S1,S2,RRR GI: soft, non tender, non distended Neuro:? motor grossly intact, alert Psych: appropriate affect, appropriate insight? Objective Data Active Medications Acetaminophen (Acetaminophen 325 Mg Tablet) 650 mg PO Q6H PRN PRN Reason: Pain, Mild (Pain Scale 1-3) Ibuprofen (Ibuprofen 400 Mg Tablet) 400 mg PO Q6H PRN PRN Reason: mild pain Sodium Chloride (0.9 % Sodium Chloride Flush 3 Ml Syringe) 3 ml IVFLUSH QSHIFT [facility] Last Admin: 01/17/21 10:59 Dose: 3 ml Documented by: LAMBERTO Assessment and Plan (1) Seizure-like activity: Status: Acute Assessment and Plan: 25F prsented with convulsions ?convulsions neuro appreciated, more likely non eplieptic, should get 48 hr ambulatory eeg, would not give ativan for further events will cotinue to observe for now ?PTSD/schizoaffective involuntary admission to inpatient psychiatry not recommended at this time ?pituitary macroadenoma ?prolactin 6.1, beta HCG less than 2,? outpatient follow-up Quality Stroke Does the patient have a stroke diagnosis?: No VTE Prior VTE?: No VTE Risk Level:: Medical - low VTE Device Contraindication: Treatment Not Indicated VTE Drug Contraindication: Treatment Not Indicated
[2021-01-17 15:12] VITALS: BP 107/64; PULSE 78; RESP 20; TEMP 36.9; O2SAT 99
[2021-01-17 18:56] VITALS: BP 113/75; PULSE 80; RESP 20; TEMP 36.5; O2SAT 99
[2021-01-17 23:03] VITALS: BP 138/69; PULSE 128; RESP 20; TEMP 36.8; O2SAT 100
[2021-01-17] MEDS: LORazepam 2 MG/ML VIAL 1 MG IVPUSH (23:10)
--- NOTE | 2021-01-17 23:24 | PM.EVENT ---
Event Note Date of Service: 01/19/21 Event Note: Seizure : Pt had an episode of seizure; rolling Eyes to back, violently shaking; not answering ; Given Ativan - with improvement; had another seizure; given 2nd dose of ativan IV. obtaining stat labs- BMP,lactate, CPK, Prolactin. Spoke to Dr Tierney- chadd- Ativan prn; No AEDs for now as she might need video EEG.
--- NOTE | 2021-01-17 23:42 | PC.NURSE ---
Pt apppeared to be having seizure for appx 5 minutes at 2300. VSS. MD to bedside. Seizure broke with 2mg IV Ativan administered. Base back to baseline orientation and states she doesn't remember having a seizure. MD to folllow-up with neurology on plan.
[2021-01-18 00:01] LABS: Lactic Acid 1.7 mmol/L (0.5-2.0)
[2021-01-18 00:09] LABS: Anion Gap 15 (12-20); Blood Urea Nitrogen 8 mg/dL (9-16); Calcium 9.9 mg/dL (8.4-10.2); Carbon Dioxide 26 mmol/L (22-29); Chloride 104 mmol/L (96-108); Creatinine Clr Calc Pharmacy 115.8; Estimated Glomerular Filt Rate > 60; Glucose Random 89 mg/dL (60-115); Potassium 3.9 mmol/L (3.3-5.1); Sodium 141 mmol/L (135-145)
[2021-01-18] MEDS: LORazepam 2 MG/ML VIAL 1 MG IVPUSH (00:43)
[2021-01-18 03:08] VITALS: BP 97/54; PULSE 80; RESP 20; TEMP 36.8; O2SAT 99
[2021-01-18] MEDS: 0.9 % Sodium Chloride Flush 3 ML SYRINGE IVFLUSH ×2 (07:21→15:49)
[2021-01-18 08:00] VITALS: BP 101/59; PULSE 91; RESP 18; TEMP 36.8; O2SAT 98
--- NOTE | 2021-01-18 11:15 | P.PNIM_ITS ---
Subjective Subjective Date of Service: 01/18/21 Interval History: cc: convulsions interval history: had another episode last night, now feeling better, does not remember episode Cardiovascular Cardiovascular: Reports no additional cardiovascular complaints Respiratory Respiratory: Reports no additional respiratory complaints Physical Exam 2 Vital Signs: Vital Signs: Last Vital Signs Temp 98.2 F 01/18/21 08:00 Pulse 91 01/18/21 08:00 Resp 18 01/18/21 08:00 BP 101/59 L 01/18/21 08:00 Pulse Ox 98 01/18/21 08:00 Body Mass Index 27.5 General: AO X 3, no acute distress Resp: CTA bilateral, no accessory muscles used CVS: S1,S2,RRR GI: soft, non tender, non distended Neuro: motor grossly intact, alert Psych: appropriate affect, appropriate insight Objective Data Active Medications Acetaminophen (Acetaminophen 325 Mg Tablet) 650 mg PO Q6H PRN PRN Reason: Pain, Mild (Pain Scale 1-3) Ibuprofen (Ibuprofen 400 Mg Tablet) 400 mg PO Q6H PRN PRN Reason: mild pain Lorazepam (Lorazepam 2 Mg/Ml Vial) 1 mg IVPUSH Q2H PRN PRN Reason: Seizures Last Admin: 01/17/21 23:10 Dose: 1 mg Documented by: NATALIE Sodium Chloride (0.9 % Sodium Chloride Flush 3 Ml Syringe) [facility] Last Admin: 01/18/21 07:21 Dose: 3 ml Documented by: LAMBERTO Labs CBC & Chem 7: 01/17/21 23:43 Labs: Laboratory Results - last 24 hr 01/17/21 01/17/21 23:43 23:43 Anion Gap 15 Estim Creat Clear Calc 115.8 Estimated GFR > 60 Random Glucose 89 Lactic Acid 1.7 Calcium 9.9 Total Creatine Kinase 274 H Assessment and Plan (1) Seizure-like activity: Status: Acute Assessment and Plan: 25F prsented with convulsions ?convulsions neuro appreciated, previous episodes more likely non eplieptic, however, episode from 01/17/21 was caught on video, shown to neuro, appears more suspicious for epileptic seizure recommendations to transfer to [facility] for video EEG, unfortunately, [facility] unavailable for transfers at this time plan for now will be 48hr inpatient EEG here while on camera, to start 01/19 hold off on AED to allow for events to be caught on EEG. ?PTSD/schizoaffective involuntary admission to inpatient psychiatry not recommended at this time ?pituitary macroadenoma ?prolactin 6.1, beta HCG less than 2,? outpatient follow-up Quality Stroke Does the patient have a stroke diagnosis?: No VTE Prior VTE?: No VTE Risk Level:: Medical - low VTE Device Contraindication: Treatment Not Indicated VTE Drug Contraindication: Treatment Not Indicated
[2021-01-18 12:00] VITALS: BP 102/56; PULSE 80; RESP 18; TEMP 36.8; O2SAT 99
[2021-01-18 15:03] VITALS: BP 115/68; PULSE 80; RESP 16; TEMP 36.9; O2SAT 100
[2021-01-18] MEDS: Enoxaparin Sodium 40 MG/0.4 ML SYRINGE SUBCUT (15:46)
[2021-01-18 18:59] VITALS: BP 104/60; PULSE 86; RESP 17; TEMP 36.7; O2SAT 100
[2021-01-19 04:00] VITALS: BP 99/58; PULSE 88; RESP 20; TEMP 37; O2SAT 96
[2021-01-19] MEDS: LORazepam 2 MG/ML VIAL 1 MG IVPUSH ×5 (04:42→20:06)
--- NOTE | 2021-01-19 06:05 | PM.EVENT ---
Event Note Date of Service: 01/19/21 Event Note: seizure: Patient had another episode of seizure around 4:00 a.m.. Received Ativan IV x3 with improvement in symptoms. Per day team patient is scheduled for EEG today. Will sign out to the day hospitalist for follow-up with the Neurology. Patient's vital signs And respiratory status stable.
[2021-01-19 08:00] VITALS: BP 95/57; PULSE 83; RESP 20; TEMP 36.5; O2SAT 99
[2021-01-19] MEDS: 0.9 % Sodium Chloride Flush 3 ML SYRINGE IVFLUSH ×2 (09:09→17:49)
--- NOTE | 2021-01-19 09:40 | MHC.CM.PN ---
Female 25 DX SZ Plan Tuesday01/16/21 was return to M5. The Patient has continued with SZ activity TX on hold. A 48Hour EEG has been scheduled for today. DP return to M5 when medically clear.
--- NOTE | 2021-01-19 11:23 | P.PNIM_ITS ---
Subjective Subjective Date of Service: 01/19/21 Interval History: cc: convulsions interval history: had another episode last night as well, now feeling better, does not remember episode Cardiovascular Cardiovascular: Reports no additional cardiovascular complaints Respiratory Respiratory: Reports no additional respiratory complaints Physical Exam Vital Signs: Vital Signs: Last Vital Signs Temp 97.7 F 01/19/21 08:00 Pulse 83 01/19/21 08:00 Resp 20 01/19/21 08:00 BP 95/57 L 01/19/21 08:00 Pulse Ox 99 01/19/21 08:00 Body Mass Index 27.5 General: AO X 3, no acute distress Resp:? CTA bilateral, no accessory muscles used CVS: S1,S2,RRR GI: soft, non tender, non distended Neuro:? motor grossly intact, alert Psych: appropriate affect, appropriate insight? Objective Data Active Medications Acetaminophen (Acetaminophen 325 Mg Tablet) 650 mg PO Q6H PRN PRN Reason: Pain, Mild (Pain Scale 1-3) Enoxaparin Sodium (Enoxaparin Sodium 40 Mg/0.4 Ml Syringe) 40 mg SUBCUT Q24H [facility] Last Admin: 01/18/21 15:46 Dose: 40 mg Documented by: SHAWANDA Ibuprofen (Ibuprofen 400 Mg Tablet) 400 mg PO Q6H PRN PRN Reason: mild pain Lorazepam (Lorazepam 2 Mg/Ml Vial) 1 mg IVPUSH Q2H PRN PRN Reason: Seizures Last Admin: 01/19/21 04:57 Dose: 1 mg Documented by: LUIS MANUEL Sodium Chloride (0.9 % Sodium Chloride Flush 3 Ml Syringe) [facility] Last Admin: 01/19/21 09:09 Dose: 3 ml Documented by: CATRACHITA Labs CBC & Chem 7: 01/17/21 23:43 Assessment and Plan (1) Seizure-like activity: Status: Acute Assessment and Plan: 25F prsented with convulsions ?convulsions neuro appreciated, previous episodes more likely non eplieptic, however, episode from 01/17/21 was caught on video, shown to neuro, appears more suspicious for epileptic seizure recommendations to transfer [place] [facility] [place], unfortunately, [facility] unavailable for transfers at this time, and unable to do continuous EEG here plan for now will be 1hr EEG, follow up neuro hold off on AED ?PTSD/schizoaffective involuntary admission to inpatient psychiatry not recommended at this time ?pituitary macroadenoma ?prolactin 6.1, beta HCG less than 2,? outpatient follow-up Quality Stroke Does the patient have a stroke diagnosis?: No VTE Prior VTE?: No VTE Risk Level:: Medical - low VTE Device Contraindication: Treatment Not Indicated VTE Drug Contraindication: Treatment Not Indicated
[2021-01-19 11:47] VITALS: BP 102/60; PULSE 99; RESP 20; TEMP 37; O2SAT 99
[2021-01-19 12:06] LABS: Prolactin 12.5 ng/mL
--- NOTE | 2021-01-19 13:45 | PC.NURSE ---
Skin assessment completed today. Patient has no open areas but has some itchiness to chest. Cream applied.
[2021-01-19 15:51] VITALS: BP 100/58; PULSE 86; RESP 16; TEMP 36.8; O2SAT 100
[2021-01-19] MEDS: Enoxaparin Sodium 40 MG/0.4 ML SYRINGE SUBCUT (15:51)
[2021-01-19 19:54] VITALS: BP 112/52; PULSE 93; RESP 20; TEMP 37; O2SAT 100
[2021-01-19 20:08] VITALS: BP 123/73; PULSE 106; O2SAT 99
--- NOTE | 2021-01-20 | EEG_ITS ---
This is a 16-channel EEG with an EKG lead. The patient started with fully alert and awake and then started having seizure-like episodes. Many of these episodes involved half closure of eyes, deviation of eyes to the right side, jerking of eyes, tensing of the body and jerking of upper torso forward and backward. Background EEG rhythm during initial part of the tracing was 8 to 10 hertz, 5 to 30 microvolt posteriorly, lower amplitude fast anteriorly. Some lead, muscle, and eye movement-related artifacts were noted. Otherwise, no definite EEG abnormality was noted. Cardiac lead revealed tachycardia. IMPRESSION: This EEG reveals nonepileptic episodes or nonepileptic convulsions. No EEG abnormality was noted to suggest epilepsy. MD ALEX Joe/KRISSY / [id number]
[2021-01-20] MEDS: LORazepam 2 MG/ML VIAL 1 MG IVPUSH (02:03)
[2021-01-20 04:00] VITALS: RESP 16
[2021-01-20 07:56] VITALS: BP 108/62; PULSE 90; TEMP 35.8; O2SAT 100
--- NOTE | 2021-01-20 09:30 | HO.PM.IMPN ---
Subjective Subjective Date of Service: 01/20/21 Interval History: cc: convulsions interval history: has had events past 3 nights Cardiovascular Cardiovascular: Reports no additional cardiovascular complaints Respiratory Respiratory: Reports no additional respiratory complaints Physical Exam Vital Signs: Vital Signs: Last Vital Signs Temp 96.4 F L 01/20/21 07:56 Pulse 90 01/20/21 07:56 Resp 16 01/20/21 04:00 BP 108/62 01/20/21 07:56 Pulse Ox 100 01/20/21 07:56 Body Mass Index 27.5 General: AO X 3, no acute distress Resp:? CTA bilateral, no accessory muscles used CVS: S1,S2,RRR GI: soft, non tender, non distended Neuro:? motor grossly intact, alert Psych: appropriate affect, appropriate insight? Objective Data Active Medications Acetaminophen (Acetaminophen 325 Mg Tablet) 650 mg PO Q6H PRN PRN Reason: Pain, Mild (Pain Scale 1-3) Enoxaparin Sodium (Enoxaparin Sodium 40 Mg/0.4 Ml Syringe) 40 mg SUBCUT Q24H [facility] Last Admin: 01/19/21 15:51 Dose: 40 mg Documented by: CATRACHITA Ibuprofen (Ibuprofen 400 Mg Tablet) 400 mg PO Q6H PRN PRN Reason: mild pain Lorazepam (Lorazepam 2 Mg/Ml Vial) 1 mg IVPUSH Q2H PRN PRN Reason: Seizures Last Admin: 01/20/21 02:03 Dose: 1 mg Documented by: CELESTE Sodium Chloride (0.9 % Sodium Chloride Flush 3 Ml Syringe) 3 ml IVFLUSH QSHIFT [facility] Last Admin: 01/19/21 23:48 Dose: Not Given Documented by: CELESTE Non-Admin Reason: Patient Asleep Labs CBC & Chem 7: 01/17/21 23:43 Labs: Laboratory Results - last 24 hr 01/17/21 23:43 Prolactin 12.5 Assessment and Plan (1) Seizure-like activity: Status: Acute Assessment and Plan: 25F prsented with convulsions ?convulsions neuro appreciated, previous episodes more likely non eplieptic, however, episode from 01/17/21 was caught on video, shown to neuro, appears more suspicious for epileptic seizure recommendations to transfer to [facility] for video EEG, unfortunately, [facility] unavailable for transfers at this time, and unable to do continuous EEG here plan for now will be 1hr EEG, follow up neuro hold off on AED ?PTSD/schizoaffective involuntary admission to inpatient psychiatry not recommended at this time will request consult for follow up, ? starting med while inpatient on medicine ?pituitary macroadenoma ?prolactin 6.1, beta HCG less than 2,? outpatient follow-up Quality Stroke Does the patient have a stroke diagnosis?: No VTE Prior VTE?: No VTE Risk Level:: Medical - low VTE Device Contraindication: Treatment Not Indicated VTE Drug Contraindication: Treatment Not Indicated
[2021-01-20 11:20] VITALS: BP 110/56; PULSE 94; TEMP 36.4; O2SAT 97
[2021-01-20 15:35] VITALS: BP 102/64; PULSE 94; RESP 15; TEMP 37.1; O2SAT 100
[2021-01-20] MEDS: Enoxaparin Sodium 40 MG/0.4 ML SYRINGE SUBCUT (16:43)
[2021-01-20] MEDS: 0.9 % Sodium Chloride Flush 3 ML SYRINGE IVFLUSH (16:44)
[2021-01-20 19:31] VITALS: BP 90/63; PULSE 92; RESP 15; TEMP 36.7; O2SAT 99
[2021-01-20 23:40] VITALS: BP 97/54; PULSE 85; RESP 18; TEMP 36.4; O2SAT 98
[2021-01-21] MEDS: 0.9 % Sodium Chloride Flush 3 ML SYRINGE IVFLUSH ×4 (01:13→19:46)
[2021-01-21 08:00] VITALS: BP 118/59; PULSE 78; RESP 18; TEMP 36.8; O2SAT 100
[2021-01-21 11:11] VITALS: BP 116/59; PULSE 85; RESP 18; TEMP 36.5; O2SAT 100
--- NOTE | 2021-01-21 11:14 | HO.PM.IMPN ---
Subjective Subjective Date of Service: 01/21/21 Interval History: the patient was seen and evaluated this morning Laying in bed, feels comfortable overall with no recurrence of the seizures Denies any fever, chills or shortness of breath No reported other overnight events. Systemic review: No fever, chills but reports generalized weakness No chest pain, palpitation No shortness of breath or coughing No abdominal pain but reports having nausea No urinary symptoms No any rash or wounds Physical Exam Vital Signs: Vital Signs: Last Vital Signs Temp 97.7 F 01/21/21 11:11 Pulse 85 01/21/21 11:11 Resp 18 01/21/21 11:11 BP 116/59 L 01/21/21 11:11 Pulse Ox 100 01/21/21 11:11 BMI result Body Mass Index 27.5 Const: Other: Constitutional : Alert, oriented, not in distress Neck : Normal inspection, Supple Cardiovascular : RRR, S1 S2, no lower extremity edema Respiratory : Good bilateral air entry, no crackles, wheezes or rhonchi Gastrointestinal: soft, lax, Normal bowel sounds, Non tender Skin : Warm, Dry Neurological : Alert & oriented x3, No focal deficit Objective Data Active Medications Acetaminophen (Acetaminophen 325 Mg Tablet) 650 mg PO Q6H PRN PRN Reason: Pain, Mild (Pain Scale 1-3) Enoxaparin Sodium (Enoxaparin Sodium 40 Mg/0.4 Ml Syringe) 40 mg SUBCUT Q24H [facility] Last Admin: 01/20/21 16:43 Dose: 40 mg Documented by: ALEKSANDR Ibuprofen (Ibuprofen 400 Mg Tablet) 400 mg PO Q6H PRN PRN Reason: mild pain Sodium Chloride (0.9 % Sodium Chloride Flush 3 Ml Syringe) 3 ml IVFLUSH QSHIFT [facility] Last Admin: 01/21/21 10:20 Dose: 3 ml Documented by: ALEKSANDR Labs CBC & Chem 7: 01/17/21 23:43 Assessment and Plan (1) Nausea: Status: Acute (2) Seizure-like activity: Status: Acute Assessment and Plan: 25F prsented with convulsions ?convulsions neuro input appreciated, previous episodes more likely non eplieptic, however, episode from 01/17/21 was caught on video, shown to neuro, appears more suspicious for epileptic seizure with recommendations to transfer to [facility] [place] unfortunately, [facility] unavailable for transfers at this time, and unable to do continuous EEG here EEG done showing no epileptic wave ?PTSD/schizoaffective involuntary admission to inpatient psychiatry not recommended at this time Psych consult starting med while inpatient on medicine ?pituitary macroadenoma ?prolactin 6.1, beta HCG less than 2,? outpatient follow-up Quality Stroke Does the patient have a stroke diagnosis?: No VTE Prior VTE?: No VTE Risk Level:: Medical - low VTE Device Contraindication: Treatment Not Indicated VTE Drug Contraindication: Treatment Not Indicated
--- NOTE | 2021-01-21 14:32 | MHC.CM.PN ---
Female 25 DX SZ. The EEG has determined that the Pt does not have Epilepsy. M5 eval is pending. DP M5 vs Home.
--- NOTE | 2021-01-21 15:25 | PM.DS ---
DS: Providers Provider Date of Service: 01/22/21 Date of admission: 01/15/21 18:42 Primary care physician: Unknown Physician Consults: 01/15/21 18:41 Consult to Neurology Routine Consulting Provider: [facility] Reason for consultation: seizure - ? epileptic versus nonepileptic 01/20/21 08:48 Consult to Psychiatry Routine Consulting Provider: Psych Covering Reason for consultation: ?start planned meds while on medicine 01/20/21 14:08 Consult to Care Team Routine Comment: Reason for consultation: possible m5 DS: Diagnosis Discharge Diagnosis (1) Nausea: Status: Acute (2) Seizure-like activity: Status: Acute DS: Summary Hospital Course Hospital Course: Admission note HPI 25-year-old female transferred from inpatient psychiatry after rapid response for convulsions.? Patient? was recently admitted to medical floor,? from inpatient psychiatry, on 01/08/2021 for seizure.? EEG and LP were unremarkable.? MRI showed pituitary macroadenoma, does not appear to be functional.? she was initially started on Keppra but did not tolerate, was then discontinued.? She was transferred back to inpatient psychiatry 01/13/2021.? On 01/15/2021 at about 17:00 she had convulsions for about 20 minutes, eyes were mostly closed, did not have any trauma as she was lowered gently to floor, no incontinence,? Oxygen saturation was maintained throughout, was given 4 mg of Ativan IM.? Seizure then broke.? patient did not appear postictal. Hospital course patient was admitted for convulsions. she had no further episodes while inpatient. she was seen by neurology team who felt these were more likely non epileptic, an EEG was done showing no epileptic waves. Neurology recommend would not continue KEppra or antiepileptic, would not use ativan for further similar events. The patient seizure-like episode from 01/17/21 was caught on video, shown to neuro, appears more suspicious so recommendations [place] [facility] [place], unfortunately, [facility] [place] at this time, and unable to do continuous EEG here. EEG was done in the hospital for once showing no abnormal waves. patient will be transferred back to inpatient psychiatry to continue treatment. Time Spent with Patient Time attestation: Total time spent providing and/or coordinating discharge services: Discharge coordination time: Greater than 30 minutes Quality: Stroke Does the patient have a stroke diagnosis?: No Physical Exam Vital Signs: Vital Signs: Last Vital Signs Temp 97.7 F 01/21/21 11:11 Pulse 85 01/21/21 11:11 Resp 18 01/21/21 11:11 BP 116/59 L 01/21/21 11:11 Pulse Ox 100 01/21/21 11:11 BMI result Body Mass Index 27.5 Const: Other: Constitutional : Alert, oriented, not in distress Neck : Normal inspection, Supple Cardiovascular : RRR, S1 S2, no lower extremity edema Respiratory : Good bilateral air entry, no crackles, wheezes or rhonchi Gastrointestinal: soft, lax, Normal bowel sounds, Non tender Skin : Warm, Dry Neurological : Alert & oriented x3, No focal deficit Discharge Plan Discharge Patient Disposition: Xfer Psychiatric Hosp Referrals: Physician,Unknown J [Physician] - 1 Week Discharge Medications: Continued ondansetron 4 mg tablet,disintegrating 0.5 tab PO Q6-8H PRN (Reason: Nausea) RF: 0 lansoprazole 30 mg tablet,disintegrat, delay rel 30 mg PO DAILY RF: 0 Held scopolamine base 1 mg over 3 days Patch 3 Day 1 patch TRANSDERMAL Q3D RF: 0 Hold Instructions: MD shaikh bupropion HCl 300 mg tablet extended release 24 hr 1 tab PO DAILY RF: 0 Hold Instructions: MD shaikh L norgest/e.estradiol-e.estrad 0.15 mg-30 mcg (84)/10 mcg (7) tablets,dose pack,3 month 1 tab PO DAILY RF: 0 Hold Instructions: MD shaikh Discontinued levetiracetam [Keppra] 500 mg/5 mL solution 500 mg IV BID Qty: 5 RF: 0 Discharge Orders: Discharge Order (Routine); Ordered 01/22/21 Ordered By: Ros Mark Diet: advance to usual diet Activity on Discharge: As tolerated Stand Alone Forms: Patient Portal Discharge page
[2021-01-21 15:35] VITALS: BP 108/57; PULSE 9; RESP 18; TEMP 37.6; O2SAT 98
[2021-01-21 15:37] VITALS: TEMP 36.8
--- NOTE | 2021-01-21 16:22 | MHC.CARE ---
1600 Call to [facility] ([phone]), spoke to Hospice Aide Kerrie who stated that patient does NOT need a prior authorization for admission. She was unable to explain why there were three previous authorizations given with number of days and review dates provided.
--- NOTE | 2021-01-21 16:54 | PC.NURSE ---
Patient had seizure for about 5minutes, MD at bedside, patient recovered, awake, only complaint is that her head hurts.
[2021-01-21] MEDS: Enoxaparin Sodium 40 MG/0.4 ML SYRINGE SUBCUT (17:16)
[2021-01-21] MEDS: hydrOXYzine HCL 50 MG/ML VIAL IM (19:02)
[2021-01-21 19:30] VITALS: BP 114/55; PULSE 81; RESP 24; TEMP 36.8; O2SAT 98
[2021-01-21 23:20] VITALS: BP 100/51; PULSE 77; RESP 18; TEMP 36.4; O2SAT 97
--- NOTE | 2021-01-21 23:41 | PC.NURSE ---
Patient with convulsions noted. Airway protected. RN at bedside. Patient on her side. Body convulsing, eyes opening and closing at times. PT given 50mg IM Hydroxyzine at 19:00 as order, by previous RN. Patient continued to have convulsing episodes for about 1.5 hours on and off, usually lasted 30 seconds to a minute each. MD made aware. No new ordered entered. After about 1.5 hours, patient arousing, alert, oriented, c/o h/a. Refused Motrin or Tylenol. Patient able to ambulate with steady gait/standby assist to bathroom with no issues noted. Night MD made aware, states to hold on transfer at this time. RN on M5 notified. Telesitter at bedside at this time. High fall risk precautions in place.
[2021-01-22 03:23] VITALS: BP 99/54; PULSE 66; RESP 18; TEMP 36.4; O2SAT 95
[2021-01-22 07:34] VITALS: BP 98/61; PULSE 72; RESP 16; TEMP 36.9; O2SAT 98
--- NOTE | 2021-01-22 11:04 | PC.NURSE ---
Pt refusing high fall risk measures stating to shut off bed alarm as shes going to do whatever the fuck I want anyways Telesitter remains in place.
--- NOTE | 2021-01-22 16:07 | MHC.CM.PN ---
Female 25 DX SZ Per EEG report patient is not seizing. Patient is scheduled to transfer to M5 today. The discharge order has been received. Patient will transport to M5 when the bed is available. It is anticipated that she will be transfer today.
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
== END 2021-01-22 18:15 | DRG 101 ==
PROVIDERS: Hospitalist; Admitting Provider Internal Medicine; PCP Nurse Practitioner Family; Visit Provider Student in an Organized Health Care Education/Training Program
DX: R56.9 Unspecified convulsions (principal); D35.2 Benign neoplasm of pituitary gland; F43.10 Post-traumatic stress disorder, unspecified; F25.9 Schizoaffective disorder, unspecified; Z87.891 Personal history of nicotine dependence; Z79.1 Long term (current) use of non-steroidal anti-inflammatories (NSAID); Z79.899 Other long term (current) drug therapy
CPT/HCPCS: 36415; 80048; 82550; 83605; 84146; 95816; J1650; J2060

== ENCOUNTER 2021-01-22 18:50 | Inpatient (IN) | payer OTHER, SELFPAY ==
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
[2021-01-22] MEDS: hydrOXYzine HCL 50 MG/ML VIAL IM (21:53)
[2021-01-23 01:25] VITALS: BP 115/64; PULSE 93; RESP 18; TEMP 36.8; O2SAT 100
--- NOTE | 2021-01-23 01:45 | PC.NURSE ---
Patient arrived to [facility] on 2nd shift at 18:34pm.
--- NOTE | 2021-01-23 01:49 | PC.NURSE ---
Patient comes out to nurses station at approximately 1am states I don't feel good. Patient is asked if she wants to talk, she nods her head Yes. Patient is brought to kitchen for conversation. In conversation, patient is asked if she thinks being in the hospital is helping, she responds, I don't know. Patient is asked if she believes she will get through this difficult time, she responds, No, because no one believes me. Patient is provided with validation of her experience and encouraged to discuss her feelings. Patient crouches over her knees while sitting in chair and does not make eye contact, she stops communicating with this flex o writer operator. She then begins to shake her legs and body; Seizure activity is not suspected. Patient is given warm blankets and this flex o writer operator sits with patient while she shakes from 1:10-1:30am. Vitals are assessed; 98.3, HR 93, BP 115/64, 02- 100%. Patient is brought back to her room at approximately 1:40am and encouraged to lay down and rest. Additional warm blankets provided. Patient refuses to lay down, instead sitting up in bed hugging her knees. Covering Chaparro Garcia is notified of event. Will continue to monitor patient for safety and well-being.
[2021-01-23 06:45] VITALS: BP 110/78; PULSE 100; RESP 18; TEMP 36.1; O2SAT 100
--- NOTE | 2021-01-23 16:21 | HO.PSYCHPN ---
Subjective Subjective Date of Service: 01/23/21 Reason For Visit: Psychosis Subjective Notes: Conditional Voluntary and 3 Day Healthcare Proxy: No Guardianship: No Medical Problems Affecting Mental Status: No Interim History: The trauma has taken a toll I guess. Can we discuss my options again? So much has happened I want to be clear on what we decided and why. Alert, calmer, clear. Discussed her thoughts regarding a mixed symptom set of psychotic sx, lability of mood, trauma sx, conversion, seizure sx. They tell me I don't have epilepsy . Reviewed with pt the original idea for Abilify Aristada/Maintena came from her out pt prescriber Dr. Mai Carvajal. Reviewed 2 day po trial of abilify with IM Zofran. Reviewed suggested trial of 14 days of PO prior to PRITCHETT and minimum trial of 2 days. Review of neurology and internal medicine recommendation that pt can have PRITCHETT without restriction given epilepsy rule out. Pt agrees to trial PO for 14 days with Zofran then transition per recommendation to PRITCHETT. Discussed referral to [facility]. She refuses. You don't understand how long it takes me to trust people. I could not do any work because I don't trust them. Agrees we may look for a new therapist for trauma work. Asks that I not talk with family at this time. Medication Compliance: Yes Side effects from medications: No Attending Groups: Yes Review of Systems Acute medical concerns: No Medical Review of Systems: unchanged Review of Systems Reports behavioral changes and Reports seizure-like activity (medical/neuro team report non-epileptic activity) Psychiatric: Reports anxiety, Reports behavioral changes, Reports depression, Reports irritability, Reports anhedonia and Reports paranoia Mental Status Exam Mental Status Exam Patient Appearance: Appropriate Patient Orientation: Person, Place, Time and Situation Level of Consciousness: Awake and Alert Patient Behavior: Guarded, Talkative, Cooperative, Suspicious, Anxious, Fearful and Good Eye Contact Mood Description: Suspicious, Fearful, Hostile, Anxious, Labile, Nervous and Apprehensive Affect Description: Labile Patient Cognition Impaired: No Ability to Follow Directions: Good Speech Pattern: Spontaneous Speech and Soft-Spoken Memory Description: Remote Impaired and Episodic Impaired Hallucinations: None Delusions: Paranoid Ideation Perceptual Disturbances: Depersonalization and Derealization Thought Process: Distracted Thought Content: positive for [place] and positive for Circumstantial Depressive Symptoms: Increased Anxiety, Diff. Making Decisions, Increased Irritability, Isolating-Friends/Family, Unexplained Headaches, Unhappiness, Unexplained Stomach Pain and Difficulty Concentrating Judgement: Fair Diagnostics Vital Signs (24Hr): Vital Signs - 24 hr 01/23/21 01:25 01/23/21 06:45 Temperature 98.3 F 97 F Pulse Rate 93 100 Respiratory Rate 18 18 Blood Pressure 115/64 110/78 Pulse Oximetry 100 100 Medications Medications Current Medications Acetaminophen (Acetaminophen 325 Mg Tablet) 650 mg PO Q6H PRN PRN Reason: Headache/Pain Mild Scale (1-3) Acetaminophen (Acetaminophen 325 Mg Tablet) 650 mg PO Q6H PRN PRN Reason: Headache/Pain Mild Scale (1-3) Acetaminophen (Acetaminophen 325 Mg Tablet) 650 mg PO Q6H PRN PRN Reason: Pain, Mild (Pain Scale 1-3) Al Hydroxide/Mg Hydroxide (Magnesium Hydrox/Alum Hydrox 30 Ml Oral.Susp) 30 ml PO Q6H PRN PRN Reason: Heartburn/Nausea Al Hydroxide/Mg Hydroxide (Magnesium Hydrox/Alum Hydrox 30 Ml Oral.Susp) 30 ml PO Q6H PRN PRN Reason: Heartburn/Nausea Aripiprazole (Aripiprazole 10 Mg Tablet) 10 mg PO BEDTIME [facility] Hydroxyzine HCl (Hydroxyzine Hcl 50 Mg/Ml Vial) 50 mg IM Q6H PRN PRN Reason: agitation, anxiety Last Admin: 01/22/21 21:53 Dose: 50 mg Documented by: Hydroxyzine HCl (Hydroxyzine Hcl 50 Mg Tablet) 50 mg PO Q6H PRN PRN Reason: Anxiety Hydroxyzine HCl (Hydroxyzine Hcl 50 Mg Tablet) 50 mg PO BEDTIME PRN PRN Reason: Anxiety Ibuprofen (Ibuprofen 400 Mg Tablet) 400 mg PO Q6H PRN PRN Reason: mild pain Lorazepam (Lorazepam 2 Mg/Ml Vial) 1 mg IM Q4H PRN PRN Reason: Seizure activity Magnesium Hydroxide (Milk Of Magnesia 30 Ml Oral.Susp) 30 ml PO DAILY PRN PRN Reason: Constipation Magnesium Hydroxide (Milk Of Magnesia 30 Ml Oral.Susp) 30 ml PO DAILY PRN PRN Reason: Constipation Magnesium Hydroxide (Milk Of Magnesia 30 Ml Oral.Susp) 30 ml PO DAILY PRN PRN Reason: Constipation Ondansetron HCl (Ondansetron Hcl 4 Mg/2 Ml Vial) 4 mg IM BEDTIME [facility] Trazodone HCl (Trazodone Hcl 50 Mg Tablet) 50 mg PO BEDTIME PRN PRN Reason: Insomnia Allergies Allergies Allergy/AdvReac Type Severity Reaction Status Date / Time metoclopramide [From Reglan] Allergy Muscle Verified 01/08/21 20:46 cramps haloperidol [From Haldol] AdvReac Severe Dystonia Verified 01/08/21 20:46 sucralfate [From Carafate] AdvReac Severe vomiting Verified 01/08/21 20:46 Assessment & Plan Assessment & Plan (1) PTSD (post-traumatic stress disorder): Status: Acute Code(s): F43.10 - Post-traumatic stress disorder, unspecified (2) Schizoaffective disorder, bipolar type: Status: Acute Code(s): F25.0 - Schizoaffective disorder, bipolar type Assessment and Plan: 25 yo female returns to after extensive medical evaluation of seizure activity. 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 Pt also with inability to swallow medications due to nausea, vomiting, abdominal pain. GI testing is negative thus far. Discussed with Delaney the next step in her treatment. Discussed possible conversion reactions secondary to PTSD which she agrees is a strong possiblity. Asked if she would consider referral to [facility] if we were able and she declined. She is willing to trial a new out pt therapist (female only) and will do a 14 day Abilify po trial with IM Zofran with the plan to transition to [facility]. Plan: 1. Ensure tid with meals-vanilla only. 2. Ativan 1 mg IM prn seizure activity 3. Zofran 4 mg IM HS prior to Abilify dosing 4. Abilify 10 mg HS. I spent 40 minutes with the patient and/or on the patient floor today, greater than?50% of which was spent counseling/coordinating care. Patient educated on: medication risk/benefits and therapeutic strategies Informed Consent: understands and further education needed Reason for contiued inpatient stay Substantial Risk for: rapid decompensation
[2021-01-23] MEDS: LORazepam 2 MG/ML VIAL 1 MG IM (16:30)
[2021-01-23 17:00] VITALS: BP 168/96; PULSE 136; RESP 20; TEMP 36.7; O2SAT 98
[2021-01-23] MEDS: OLANZapine 10 MG VIAL IM (17:58)
--- NOTE | 2021-01-23 23:21 | PC.NURSE ---
At approx 1630- This RN was called over to see Pt in the hallway sitting by the telephone. Pt started to shake her body and hold her hands against her face as she was shaking. Pt was encouraged to talk about what is causing her distress. Pt did not respond initially. Pt received medication (see MAR). Staff prompted Pt to get into wheelchair with minimal assistance- Pt tolerated transfer well. This RN talked to Pt with distractions with positive effect. Pt would smile and say a comment, then go back into a shaking mood. Pt reports having flashbacks as she makes the shaking movement. Pt encouraged to utilize healthy coping skills. Pt started to smack herself in the face with her fists and reporting negative thoughts. Pt offered Zyprexa and Pt agreed to the medication (SEE MAR). Pt observed calmer and resting in her bed with eyes open as staff comes in and out of the room. Pt educated about safety in milieu. Will con't to monitor and provide support.
[2021-01-23 23:35] VITALS: PULSE 68; RESP 15
[2021-01-24] MEDS: hydrOXYzine HCL 50 MG/ML VIAL IM (00:33)
--- NOTE | 2021-01-24 00:48 | PC.NURSE ---
At approximately 12:15am patient requests to speak with a nurse. Patient is assessed, she reports high levels of anxiety and states, Can you please just give me something to knock me out? Medications are reviewed and patient is offered P.O. Trazodone and Hydroxyzine. She replies, That's just going to make me sick, so I guess I'll just suffer. Carbon Rod Inserter Provider, Chanda Lechuga is contacted and updated; IM Hydroxyzine 50mg is recommended. 50 mg IM Hydroxyzine is administered to Left Deltoid without incident.
[2021-01-24] MEDS: ondansetron HCL 4 MG/2 ML VIAL IM (08:02)
[2021-01-24] MEDS: ARIPiprazole 10 MG TABLET PO (08:04)
--- NOTE | 2021-01-24 08:31 | HO.PSYCHPN ---
Subjective Subjective Date of Service: 01/24/21 Reason For Visit: Psychosis Interim History: Patient seen and discussed with team. Patient evaluated this morning and upon interview she reports she has a migraine, rubbing her eyes and face. Pt had a pseudoseizure in afternoon of 01/25/21, endorses sx of amnesia and confusion postictal, however may be a function of PTSD. She was administered IM ativan by RN due to PNES sx. Later in the evening, pt had incident of hitting herself in the face, olanzapine IM 10 mg was administered (not chemical restraint, as pt was willing and prefers IM administration). At bedtime, pt requested IM atarax 50 mg, which helped with sleep, knocked me out, I need that every fucking night. Continues to endorse GI distress. Pt disclosed urges to self harm by cutting but denies plan or intent. She denies SI. Medication Compliance: Yes Side effects from medications: No Attending Groups: Yes Review of Systems Acute medical concerns: No Medical Review of Systems: unchanged Mental Status Exam Mental Status Exam Narrative: Patient Appearance:?Appropriate Patient Orientation:?Person, Place, Time and Situation Level of Consciousness:?Awake and Alert Patient Behavior:?Guarded, Talkative, Cooperative, Suspicious, Anxious, Fearful and Good Eye Contact Mood Description:?Suspicious, Fearful, Hostile, Anxious, Labile, Nervous and Apprehensive Affect Description:?Labile Patient Cognition Impaired:?No Ability to Follow Directions:?Good Speech Pattern:?Spontaneous Speech and Soft-Spoken Memory Description:?Remote Impaired and Episodic Impaired Hallucinations:?None Delusions:?Paranoid Ideation Perceptual Disturbances:?Depersonalization and Derealization Thought Process:?Distracted Thought Content:?positive for [place] and positive for Circumstantial Depressive Symptoms:?Increased Anxiety, Diff. Making Decisions, Increased Irritability, Isolating-Friends/Family, Unexplained Headaches, Unhappiness, Unexplained Stomach Pain and Difficulty Concentrating Judgement:?Fair Diagnostics Vital Signs (24Hr): Vital Signs - 24 hr 01/24/21 21:30 01/24/21 21:37 01/24/21 21:45 Temperature 98.4 F 98.0 F 97.3 F Pulse Rate 114 H 111 H 108 H Respiratory Rate 18 18 14 Blood Pressure 136/84 130/85 126/70 Pulse Oximetry 98 96 99 01/24/21 22:15 Temperature 97.0 F Pulse Rate 101 H Respiratory Rate 18 Blood Pressure 117/70 Pulse Oximetry 100 Medications Medications Current Medications Acetaminophen (Acetaminophen 325 Mg Tablet) 650 mg PO Q6H PRN PRN Reason: Headache/Pain Mild Scale (1-3) Acetaminophen (Acetaminophen 325 Mg Tablet) 650 mg PO Q6H PRN PRN Reason: Headache/Pain Mild Scale (1-3) Acetaminophen (Acetaminophen 325 Mg Tablet) 650 mg PO Q6H PRN PRN Reason: Pain, Mild (Pain Scale 1-3) Al Hydroxide/Mg Hydroxide (Magnesium Hydrox/Alum Hydrox 30 Ml Oral.Susp) 30 ml PO Q6H PRN PRN Reason: Heartburn/Nausea Al Hydroxide/Mg Hydroxide (Magnesium Hydrox/Alum Hydrox 30 Ml Oral.Susp) 30 ml PO Q6H PRN PRN Reason: Heartburn/Nausea Aripiprazole (Aripiprazole 10 Mg Tablet) 10 mg PO DAILY [facility] Last Admin: 01/24/21 08:04 Dose: 10 mg Documented by: Hydroxyzine HCl (Hydroxyzine Hcl 50 Mg/Ml Vial) 50 mg IM Q6H PRN PRN Reason: agitation, anxiety Last Admin: 01/24/21 00:33 Dose: 50 mg Documented by: Hydroxyzine HCl (Hydroxyzine Hcl 50 Mg Tablet) 50 mg PO Q6H PRN PRN Reason: Anxiety Last Admin: 01/25/21 02:56 Dose: 50 mg Documented by: Hydroxyzine HCl (Hydroxyzine Hcl 50 Mg Tablet) 50 mg PO BEDTIME PRN PRN Reason: Anxiety Ibuprofen (Ibuprofen 400 Mg Tablet) 400 mg PO Q6H PRN PRN Reason: mild pain Lorazepam (Lorazepam 2 Mg/Ml Vial) 1 mg IM Q4H PRN PRN Reason: Seizure activity Last Admin: 01/24/21 21:30 Dose: 1 mg Documented by: Magnesium Hydroxide (Milk Of Magnesia 30 Ml Oral.Susp) 30 ml PO DAILY PRN PRN Reason: Constipation Magnesium Hydroxide (Milk Of Magnesia 30 Ml Oral.Susp) 30 ml PO DAILY PRN PRN Reason: Constipation Magnesium Hydroxide (Milk Of Magnesia 30 Ml Oral.Susp) 30 ml PO DAILY PRN PRN Reason: Constipation Ondansetron HCl (Ondansetron Hcl 4 Mg/2 Ml Vial) 4 mg IM DAILY [facility] Last Admin: 01/24/21 08:02 Dose: 4 mg Documented by: Trazodone HCl (Trazodone Hcl 50 Mg Tablet) 50 mg PO BEDTIME PRN PRN Reason: Insomnia Allergies Allergies Allergy/AdvReac Type Severity Reaction Status Date / Time metoclopramide [From Reglan] Allergy Muscle Verified 01/08/21 20:46 cramps haloperidol [From Haldol] AdvReac Severe Dystonia Verified 01/08/21 20:46 sucralfate [From Carafate] AdvReac Severe vomiting Verified 01/08/21 20:46 Assessment & Plan Assessment & Plan (1) PTSD (post-traumatic stress disorder): Status: Acute Code(s): F43.10 - Post-traumatic stress disorder, unspecified (2) Schizoaffective disorder, bipolar type: Status: Acute Code(s): F25.0 - Schizoaffective disorder, bipolar type Assessment and Plan: 25 yo female returns to after extensive medical evaluation of seizure activity. 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 Pt also with inability to swallow medications due to nausea, vomiting, abdominal pain. GI testing is negative thus far. Discussed with Delaney the next step in her treatment. Discussed possible conversion reactions secondary to PTSD which she agrees is a strong possiblity. Asked if she would consider referral to [facility] if we were able and she declined. She is willing to trial a new out pt therapist (female only) and will do a 14 day Abilify po trial with IM Zofran with the plan to transition to [facility]. Plan: 1. Ensure tid with meals-vanilla only. 2. Ativan 1 mg IM prn seizure activity 3. Zofran 4 mg IM HS prior to Abilify dosing 4. Abilify 10 mg HS. Weekend Coverage: 01/24- Pt continues to have episodes of pseudoseizures in the evening, appears to be responding well to IM hydroxyzine 50 mg at bedtime. Will continue abilify PO trial with IM zofran. I spent minutes with the patient and/or on the patient floor today, greater than?50% of which was spent counseling/coordinating care. Reason for contiued inpatient stay Substantial Risk for: harm to self and med/psych decompensation
[2021-01-24 21:30] VITALS: BP 136/84; PULSE 114; RESP 18; TEMP 36.9; O2SAT 98
[2021-01-24] MEDS: LORazepam 2 MG/ML VIAL 1 MG IM (21:30)
[2021-01-24 21:37] VITALS: BP 130/85; PULSE 111; RESP 18; TEMP 36.7; O2SAT 96
[2021-01-24 21:45] VITALS: BP 122/70; BP 126/70; PULSE 104; PULSE 108; RESP 14; RESP 18; TEMP 36.3; TEMP 36.7; O2SAT 98; O2SAT 99
--- NOTE | 2021-01-24 21:59 | PC.NURSE ---
Patient was found in Group Room B by staff completing checks at approximately 21:20. Pt was noted to be unconscious, drooling, with eyes rolled back, and shaking. Ativan 1mg was administered to Right Deltoid with no effect. Covering Chaparro Garcia was notified. Chaparro Garcia requested an CLIENT TECHNOLOGIES ANALYST be called. CLIENT TECHNOLOGIES ANALYST was called and staff came to floor with Nursing Vacation Planner, Kerrie Martin. Nursing Vacation Planner cancelled CLIENT TECHNOLOGIES ANALYST once staff arrived to floor due to previous known medical hx and requested patient be transferred back to her bed to recover. Patient remains unresponsive to staff and continues to shake at this time; 22:07pm.
[2021-01-24 22:15] VITALS: BP 117/70; PULSE 101; RESP 18; TEMP 36.1; O2SAT 100
[2021-01-25] MEDS: hydrOXYzine HCL 50 MG TABLET PO (02:56)
--- NOTE | 2021-01-25 03:18 | PC.NURSE ---
Patient is ambulating the hallway from approximately 230am till 2:55am. She presents with labile mood demanding to know where her shoes and fidget toy are; she is cursing at staff. Staff assist in helping her find her personal items. Patient is agitated with staff and then requests a shot to calm down. Patient is encouraged to take P.O. medication. Patient argues with this remote mortgage underwriter about taking P.O. medications stating it will make her sick. Patient is again encouraged to try P.O. Medication. Hydroxyzine 50mg is cut into quarters with Pill Splitter and quarter pieces administered every five minutes with small sips of tim ciro and 1 cracker which she breaks into quarters. Patient is instructed to sit in view of RN, for close observation. Patient sits outside of medication room from 2:55am - 3:25am while trialing P.O. Medication. Patient is tolerant of P.O. medication without vomiting at this time.
[2021-01-25] MEDS: ondansetron HCL 4 MG/2 ML VIAL IM (09:24)
[2021-01-25] MEDS: ARIPiprazole 10 MG TABLET PO (09:30)
--- NOTE | 2021-01-25 14:33 | HO.PSYCHPN ---
Subjective Subjective Date of Service: 01/25/21 Reason For Visit: Psychosis Interim History: Patient seen and discussed with team. Per staffing and scheduling coordinator, pt had a pseudoseizure over the night on third shift, rapid response called and advised pt be redirected back to bed. She was administered PO hydroxyzine per protection mgr psychiatrist. Patient evaluated this morning and upon interview she says she does not remember the pseudoseizure she had, has postictal sx of confusion, fatigue. However, as interview continued pt was able to recall precipitants to pseudoseizure, mainly exposure to male staff and headphones dying, also a male peer on [facility] told her to stop staring at me, although Delaney said she had been looking at the ground. Pt says she hit her head during the episode, I dont know where, I know what the feeling is. Continues to endorse GI distress but ate a bagel this morning. Continues to report migraine/ headache. Pt reiterates that she prefers IM medication, does not want PO medication. Pt currently denies SI/SIB, behavior is safe in [facility]. Medication Compliance: Yes Side effects from medications: No Attending Groups: Yes Review of Systems Acute medical concerns: No Medical Review of Systems: unchanged Mental Status Exam Mental Status Exam Narrative: Patient Appearance:?Appropriate Patient Orientation:?Person, Place, Time and Situation Level of Consciousness:?Awake and Alert Patient Behavior:?Guarded, Talkative, Cooperative, Suspicious, Anxious, Fearful and Good Eye Contact Mood Description:?Suspicious, Fearful, Hostile, Anxious, Labile, Nervous and Apprehensive Affect Description:?Labile Patient Cognition Impaired:?No Ability to Follow Directions:?Good Speech Pattern:?Spontaneous Speech and Soft-Spoken Memory Description:?Remote Impaired and Episodic Impaired Hallucinations:?None Delusions:?Paranoid Ideation Perceptual Disturbances:?Depersonalization and Derealization Thought Process:?Distracted Thought Content:?positive for [place] and positive for Circumstantial Depressive Symptoms:?Increased Anxiety, Diff. Making Decisions, Increased Irritability, Isolating-Friends/Family, Unexplained Headaches, Unhappiness, Unexplained Stomach Pain and Difficulty Concentrating Judgment:?Fair Diagnostics Vital Signs (24Hr): Vital Signs - 24 hr 01/24/21 21:30 01/24/21 21:37 01/24/21 21:45 Temperature 98.4 F 98.0 F 97.3 F Pulse Rate 114 H 111 H 108 H Respiratory Rate 18 18 14 Blood Pressure 136/84 130/85 126/70 Pulse Oximetry 98 96 99 01/24/21 22:15 Temperature 97.0 F Pulse Rate 101 H Respiratory Rate 18 Blood Pressure 117/70 Pulse Oximetry 100 Imaging Radiology Impressions: ITS Impressions Head CT 01/25/21 11:49 IMPRESSION: 1. There are no acute intracranial bleeds or territorial infarcts. The study partially redemonstrates the fullness in the suprasellar cistern, better shown on the prior MRI scan. 2. There are no acute osseous or soft tissue abnormalities. Medications Medications Current Medications Acetaminophen (Acetaminophen 325 Mg Tablet) 650 mg PO Q6H PRN PRN Reason: Headache/Pain Mild Scale (1-3) Acetaminophen (Acetaminophen 325 Mg Tablet) 650 mg PO Q6H PRN PRN Reason: Headache/Pain Mild Scale (1-3) Acetaminophen (Acetaminophen 325 Mg Tablet) 650 mg PO Q6H PRN PRN Reason: Pain, Mild (Pain Scale 1-3) Al Hydroxide/Mg Hydroxide (Magnesium Hydrox/Alum Hydrox 30 Ml Oral.Susp) 30 ml PO Q6H PRN PRN Reason: Heartburn/Nausea Al Hydroxide/Mg Hydroxide (Magnesium Hydrox/Alum Hydrox 30 Ml Oral.Susp) 30 ml PO Q6H PRN PRN Reason: Heartburn/Nausea Aripiprazole (Aripiprazole 10 Mg Tablet) 10 mg PO DAILY [facility] Last Admin: 01/25/21 09:30 Dose: 10 mg Documented by: Hydroxyzine HCl (Hydroxyzine Hcl 50 Mg/Ml Vial) 50 mg IM Q6H PRN PRN Reason: agitation, anxiety Last Admin: 01/24/21 00:33 Dose: 50 mg Documented by: Hydroxyzine HCl (Hydroxyzine Hcl 50 Mg/Ml Vial) 50 mg IM BEDTIME [facility] Ibuprofen (Ibuprofen 400 Mg Tablet) 400 mg PO Q6H PRN PRN Reason: mild pain Lorazepam (Lorazepam 2 Mg/Ml Vial) 1 mg IM Q4H PRN PRN Reason: Seizure activity Last Admin: 01/24/21 21:30 Dose: 1 mg Documented by: Magnesium Hydroxide (Milk Of Magnesia 30 Ml Oral.Susp) 30 ml PO DAILY PRN PRN Reason: Constipation Magnesium Hydroxide (Milk Of Magnesia 30 Ml Oral.Susp) 30 ml PO DAILY PRN PRN Reason: Constipation Magnesium Hydroxide (Milk Of Magnesia 30 Ml Oral.Susp) 30 ml PO DAILY PRN PRN Reason: Constipation Ondansetron HCl (Ondansetron Hcl 4 Mg/2 Ml Vial) 4 mg IM DAILY [facility] Last Admin: 01/25/21 09:24 Dose: 4 mg Documented by: Allergies Allergies Allergy/AdvReac Type Severity Reaction Status Date / Time metoclopramide [From Reglan] Allergy Muscle Verified 01/08/21 20:46 cramps haloperidol [From Haldol] AdvReac Severe Dystonia Verified 01/08/21 20:46 sucralfate [From Carafate] AdvReac Severe vomiting Verified 01/08/21 20:46 Assessment & Plan Assessment & Plan (1) PTSD (post-traumatic stress disorder): Status: Acute Code(s): F43.10 - Post-traumatic stress disorder, unspecified (2) Schizoaffective disorder, bipolar type: Status: Acute Code(s): F25.0 - Schizoaffective disorder, bipolar type Assessment and Plan: 25 yo female returns to after extensive medical evaluation of seizure activity. 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 Pt also with inability to swallow medications due to nausea, vomiting, abdominal pain. GI testing is negative thus far. Discussed with Delaney the next step in her treatment. Discussed possible conversion reactions secondary to PTSD which she agrees is a strong possiblity. Asked if she would consider referral to [facility] if we were able and she declined. She is willing to trial a new out pt therapist (female only) and will do a 14 day Abilify po trial with IM Zofran with the plan to transition to [facility]. Plan: 1. Ensure tid with meals-vanilla only. 2. Ativan 1 mg IM prn seizure activity 3. Zofran 4 mg IM HS prior to Abilify dosing 4. Abilify 10 mg HS. Weekend Coverage: 01/24- Pt continues to have episodes of pseudoseizures in the evening, appears to be responding well to IM hydroxyzine 50 mg at bedtime. Will continue abilify PO trial with IM zofran. 01/25- Will discontinue hydroxyzine PO PRN, as pt prefers IM due to reported GI distress. Discussed with primary provider and will start abilify maintena 300 mg AM. Pt denies adverse effects on PO abilify, tolerating it well. Continues to have pseudoseizure in evening. Discussed with hospitalist, who recommended staffing and scheduling coordinator contact hospitalist, direct pt to bed, and continue to use hydroxyzine IM PRN or ativan IM PRN for relief. I spent minutes with the patient and/or on the patient floor today, greater than?50% of which was spent counseling/coordinating care. Reason for contiued inpatient stay Substantial Risk for: rapid decompensation and med/psych decompensation
[2021-01-25 20:45] VITALS: BP 129/74; PULSE 92; TEMP 36.8; O2SAT 100
[2021-01-25] MEDS: hydrOXYzine HCL 50 MG/ML VIAL IM (21:32)
--- NOTE | 2021-01-25 21:51 | PC.NURSE ---
Patient is sitting in kitchen with peers, when peers yell for help at approximately 21:30pm. Patient is noted to be unresponsive and shaking with a Pseudoseizure. Patient is moved from kitchen back to her bed and placed in side laying rescue position. 50mg Hydroxyzine IM is administered in Right Glutus by assigned RN Margaret. Patient is provided with 1:1 staff for monitoring while she recovers.
--- NOTE | 2021-01-26 13:30 | PC.NURSE ---
at 1105 [facility] she was caught by a staff member and gently placed down to the floor. blankets out under her head for safety and comfort and staff sat with her on the floor. serene present for the seizure like activity. prior to the activity a female patient had come out of her room naked and megan stated oh hell no and began shaking and eyes rolling back. vss. 126/73 95 99%. breathing ok. activity lasted 25 minutes on the floor. she was given ativan 1mg im in the r gluteal. pt then assisted to wheelchair and and to her bed. c/o headache afterwards.
--- NOTE | 2021-01-26 18:36 | P.PNPSI_ITS ---
Subjective Subjective Date of Service: 01/26/21 Reason For Visit: Psychosis Subjective Notes: Conditional Voluntary and 3 Day (retracted with Hannah Proctor ALDEN) Healthcare Proxy: No Guardianship: No Medical Problems Affecting Mental Status: No Interim History: Pt retracted three day notice with Hannah RUANO. Experienced witnessed pseudo- seizure activity today. Ativan IM prn and support. Pt able to recompensate in a few hours and return to milieu activities. Review with hospitalist team. No medical intervention was required. Met with Delaney later in the day-she asks if tw observed seizure-no recall of what occurred and why-team believes pt was triggered by another female patient who came into the fortune and disrobed in public. Pt with no recall of precipitant or incident. Discussed experience with PO Abilify/IM Zofran over the weekend. Pt reporting her stomach could just not tolerate it-reviewed tw discussion of sx. Abilify Maintena 300 mg [id number] IM on 01/27. Pt agrees. She reports she did not recall our Medication Compliance: Yes Side effects from medications: No Attending Groups: Yes Review of Systems Pseudoseizure activity today. Medical Review of Systems: unchanged Review of Systems Reports behavioral changes Psychiatric: Reports anxiety, Reports behavioral changes, Reports irritability and Reports mood swings Mental Status Exam Mental Status Exam Patient Appearance: Fatigued Patient Orientation: Person, Place, Time and Situation Level of Consciousness: Alert Patient Behavior: Appropriate, Talkative, Cooperative, Fatigued and Good Eye Contact Mood Description: Constricted Affect Description: Constricted Patient Cognition Impaired: No Ability to Follow Directions: Good Speech Pattern: Clear, Spontaneous Speech and Soft-Spoken Memory Description: Episodic Impaired Hallucinations: None Delusions: Not Present Perceptual Disturbances: Depersonalization and Derealization Thought Process: Distracted Thought Content: positive for [place], positive for Circumstantial and positive for Suicidal Ideation (denies) Depressive Symptoms: Increased Anxiety, Diff. Making Decisions, Increased Irritability, Changes in Appetite and Increased Fatigue Judgement: Fair Diagnostics Vital Signs (24Hr): Vital Signs - 24 hr 01/25/21 20:45 Temperature 98.2 F Pulse Rate 92 Blood Pressure 129/74 Pulse Oximetry 100 Imaging Radiology Impressions: ITS Impressions Head CT 01/25/21 11:49 IMPRESSION: 1. There are no acute intracranial bleeds or territorial infarcts. The study partially redemonstrates the fullness in the suprasellar cistern, better shown on the prior MRI scan. 2. There are no acute osseous or soft tissue abnormalities. Medications Medications Current Medications Acetaminophen (Acetaminophen 325 Mg Tablet) 650 mg PO Q6H PRN PRN Reason: Headache/Pain Mild Scale (1-3) Al Hydroxide/Mg Hydroxide (Magnesium Hydrox/Alum Hydrox 30 Ml Oral.Susp) 30 ml PO Q6H PRN PRN Reason: Heartburn/Nausea Hydroxyzine HCl (Hydroxyzine Hcl 50 Mg/Ml Vial) 50 mg IM Q6H PRN PRN Reason: agitation, anxiety Last Admin: 01/24/21 00:33 Dose: 50 mg Documented by: Hydroxyzine HCl (Hydroxyzine Hcl 50 Mg/Ml Vial) 50 mg IM BEDTIME FROILAN Last Admin: 01/25/21 21:32 Dose: 50 mg Documented by: Hydroxyzine HCl (Hydroxyzine Hcl 50 Mg/Ml Vial) 25 mg IM Q6H PRN PRN Reason: Anxiety Ibuprofen (Ibuprofen 400 Mg Tablet) 400 mg PO Q6H PRN PRN Reason: mild pain Lorazepam (Lorazepam 2 Mg/Ml Vial) 1 mg IM Q4H PRN PRN Reason: Seizure activity Last Admin: 01/24/21 21:30 Dose: 1 mg Documented by: Magnesium Hydroxide (Milk Of Magnesia 30 Ml Oral.Susp) 30 ml PO DAILY PRN PRN Reason: Constipation Non-Formulary Medication (Aripiprazole Maintena) 300 mg IM ONCE ONE Stop: 01/26/21 08:01 Ondansetron HCl (Ondansetron Hcl 4 Mg/2 Ml Vial) 4 mg IM DAILY PRN PRN Reason: nausea, vomiting Allergies Allergies Allergy/AdvReac Type Severity Reaction Status Date / Time metoclopramide [From Reglan] Allergy Muscle Verified 01/08/21 20:46 cramps haloperidol [From Haldol] AdvReac Severe Dystonia Verified 01/08/21 20:46 sucralfate [From Carafate] AdvReac Severe vomiting Verified 01/08/21 20:46 Assessment & Plan Assessment & Plan (1) PTSD (post-traumatic stress disorder): Status: Acute Code(s): F43.10 - Post-traumatic stress disorder, unspecified (2) Schizoaffective disorder, bipolar type: Status: Acute Code(s): F25.0 - Schizoaffective disorder, bipolar type Assessment and Plan: 25 yo female returns to after extensive medical evaluation of seizure activity. 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 Pt also with inability to swallow medications due to nausea, vomiting, abdominal pain. GI testing is negative thus far. Discussed with Delaney the next step in her treatment. Discussed possible conversion reactions secondary to PTSD which she agrees is a strong possiblity. Asked if she would consider referral to [facility] if we were able and she declined. She is willing to trial a new out pt therapist (female only) and will do a 14 day Abilify po trial with IM Zofran with the plan to transition to Maintena. Plan: 1. Ensure tid with meals-vanilla only. 2. Ativan 1 mg IM prn seizure activity 3. Zofran 4 mg IM HS prior to Abilify dosing 4. Abilify 10 mg HS. Weekend Coverage: 01/24- Pt continues to have episodes of pseudoseizures in the evening, appears to be responding well to IM hydroxyzine 50 mg at bedtime. Will continue abilify PO trial with IM zofran. 01/25- Will discontinue hydroxyzine PO PRN, as pt prefers IM due to reported GI distress. Discussed with primary provider and will start abilify maintena 300 mg AM. Pt denies adverse effects on PO abilify, tolerating it well. Continues to have pseudoseizure in evening. Discussed with hospitalist, who recommended staff development nurse contact hospitalist, direct pt to bed, and continue to use hydroxyzine IM PRN or ativan IM PRN for relief. 01/26/21 Tentative Abilify Maintena IM 300 mg for 01/27/21. Dr. Christensen to consult with pt on 01/27 as well. I spent 25 minutes with the patient and/or on the patient floor today, greater than?50% of which was spent counseling/coordinating care. Patient educated on: medication risk/benefits Informed Consent: understands and further education needed Reason for contiued inpatient stay Substantial Risk for: harm to self, inability to function, rapid decompensation and med/psych decompensation
[2021-01-26] MEDS: hydrOXYzine HCL 50 MG/ML VIAL IM (20:13)
[2021-01-27 06:00] VITALS: BP 112/73; PULSE 86; RESP 18; TEMP 36.9; O2SAT 100
[2021-01-27] MEDS: hydrOXYzine HCL 50 MG/ML VIAL IM ×2 (06:12→21:15)
--- NOTE | 2021-01-27 07:31 | PC.NURSE ---
Patient is noted to be sitting in the Patient kitchen around 6am with her head in her hands rubbing her temples. Patient check-in is completed. When asked if she was ok Patient shakes her head no. When asked if she thought she needed Hydroxyzine she nods her head yes. Patient vitals are assessed and found to be WNL. Patient is escorted back to room and Hydroxyzine 50mg IM administered to Left Glutus without incident. Patient is resting comfortably in bed at this time.
[2021-01-27] MEDS: LORazepam 2 MG/ML VIAL 1 MG IM (09:18)
[2021-01-27 09:38] LABS: Glucose, Whole Blood 95 mg/dL (60-115)
--- NOTE | 2021-01-27 10:13 | PC.NURSE ---
At 09:15, pt presented with possible seizure activity and staff gently lowered her to the ground and placed her on her side. Blankets were placed under her head for safety and comfort. Prior to the activity, a patient continued to slam their door loudly which appeared to trigger this response. Her body was shaking and eyes rolled to the back of her head. Activity lasted 20 minutes on the floor. Vitals were assessed, BP 143/77, HR 93, O2 98%, blood glucose 95. Once activity subsided, pt was helped into a wheelchair and brought into her room to her bed. Pt c/o headache afterwards.
--- NOTE | 2021-01-27 17:32 | P.PNPSI_ITS ---
Subjective Subjective Date of Service: 01/27/21 Reason For Visit: Psychosis Subjective Notes: Conditional Voluntary Healthcare Proxy: No Guardianship: No Medical Problems Affecting Mental Status: No Interim History: Seizure activity present today. Responded to Lorazepam IM and team support. Reports no memory s/p seizure-minimal recall of events prior to seizure activity. Pt visable in milieu after this event, participating in art/structured activity groups. Zohra IM held today d/t seizure activity- Medication Compliance: Yes Side effects from medications: No Attending Groups: Yes Review of Systems Acute medical concerns: No Review of Systems Reports behavioral changes Psychiatric: Reports anxiety, Reports behavioral changes, Reports irritability and Reports mood swings Mental Status Exam Mental Status Exam Patient Appearance: Fatigued Patient Orientation: Person, Place, Time and Situation Level of Consciousness: Alert Patient Behavior: Appropriate, Talkative, Cooperative, Fatigued and Good Eye Contact Mood Description: Constricted Affect Description: Constricted Patient Cognition Impaired: No Ability to Follow Directions: Good Speech Pattern: Clear, Spontaneous Speech and Soft-Spoken Memory Description: Episodic Impaired Hallucinations: None Delusions: Not Present Perceptual Disturbances: Depersonalization and Derealization Thought Process: Distracted Thought Content: positive for [place], positive for Circumstantial and positive for Suicidal Ideation (denies) Depressive Symptoms: Increased Anxiety, Diff. Making Decisions, Increased Irritability, Changes in Appetite and Increased Fatigue Judgement: Fair Diagnostics Vital Signs (24Hr): Vital Signs - 24 hr 01/27/21 06:00 Temperature 98.5 F Pulse Rate 86 Respiratory Rate 18 Blood Pressure 112/73 Pulse Oximetry 100 Labs Labs: Laboratory Results - last 48 hr 01/27/21 09:34 POC Glucose 95 Imaging Radiology Impressions: ITS Impressions Head CT 01/25/21 11:49 IMPRESSION: 1. There are no acute intracranial bleeds or territorial infarcts. The study partially redemonstrates the fullness in the suprasellar cistern, better shown on the prior MRI scan. 2. There are no acute osseous or soft tissue abnormalities. Medications Medications Current Medications Acetaminophen (Acetaminophen 325 Mg Tablet) 650 mg PO Q6H PRN PRN Reason: Headache/Pain Mild Scale (1-3) Al Hydroxide/Mg Hydroxide (Magnesium Hydrox/Alum Hydrox 30 Ml Oral.Susp) 30 ml PO Q6H PRN PRN Reason: Heartburn/Nausea Hydroxyzine HCl (Hydroxyzine Hcl 50 Mg/Ml Vial) 50 mg IM Q6H PRN PRN Reason: agitation, anxiety Last Admin: 01/27/21 06:12 Dose: 50 mg Documented by: Hydroxyzine HCl (Hydroxyzine Hcl 50 Mg/Ml Vial) 50 mg IM BEDTIME FROILAN Last Admin: 01/26/21 20:13 Dose: 50 mg Documented by: Hydroxyzine HCl (Hydroxyzine Hcl 50 Mg/Ml Vial) 25 mg IM Q6H PRN PRN Reason: Anxiety Ibuprofen (Ibuprofen 400 Mg Tablet) 400 mg PO Q6H PRN PRN Reason: mild pain Lorazepam (Lorazepam 2 Mg/Ml Vial) 1 mg IM Q4H PRN PRN Reason: Seizure activity Last Admin: 01/27/21 09:18 Dose: 1 mg Documented by: Magnesium Hydroxide (Milk Of Magnesia 30 Ml Oral.Susp) 30 ml PO DAILY PRN PRN Reason: Constipation Ondansetron HCl (Ondansetron Hcl 4 Mg/2 Ml Vial) 4 mg IM DAILY PRN PRN Reason: nausea, vomiting Allergies Allergies Allergy/AdvReac Type Severity Reaction Status Date / Time metoclopramide [From Reglan] Allergy Muscle Verified 01/08/21 20:46 cramps haloperidol [From Haldol] AdvReac Severe Dystonia Verified 01/08/21 20:46 sucralfate [From Carafate] AdvReac Severe vomiting Verified 01/08/21 20:46 Assessment & Plan Assessment & Plan (1) PTSD (post-traumatic stress disorder): Status: Acute Code(s): F43.10 - Post-traumatic stress disorder, unspecified (2) Schizoaffective disorder, bipolar type: Status: Acute Code(s): F25.0 - Schizoaffective disorder, bipolar type Assessment and Plan: 25 yo female returns to after extensive medical evaluation of seizure activity. 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 Pt also with inability to swallow medications due to nausea, vomiting, abdominal pain. GI testing is negative thus far. Discussed with Delaney the next step in her treatment. Discussed possible conversion reactions secondary to PTSD which she agrees is a strong possiblity. Asked if she would consider referral to [facility] if we were able and she declined. She is willing to trial a new out pt therapist (female only) and will do a 14 day Abilify po trial with IM Zofran with the plan to transition to Maintena. Plan: 1. Ensure tid with meals-vanilla only. 2. Ativan 1 mg IM prn seizure activity 3. Zofran 4 mg IM HS prior to Abilify dosing 4. Abilify 10 mg HS. Weekend Coverage: 01/24- Pt continues to have episodes of pseudoseizures in the evening, appears to be responding well to IM hydroxyzine 50 mg at bedtime. Will continue abilify PO trial with IM zofran. 01/25- Will discontinue hydroxyzine PO PRN, as pt prefers IM due to reported GI distress. Discussed with primary provider and will start abilify maintena 300 mg AM. Pt denies adverse effects on PO abilify, tolerating it well. Continues to have pseudoseizure in evening. Discussed with hospitalist, who recommended staff attorney contact hospitalist, direct pt to bed, and continue to use hydroxyzine IM PRN or ativan IM PRN for relief. 01/26/21 Tentative Abilify Maintena IM 300 mg for 01/27/21. Dr. Christensen to consult with pt on 01/27 as well. 01/27/21 Hold Abilify PRITCHETT today s/p seizure. I spent 20 minutes with the patient and/or on the patient floor today, greater than?50% of which was spent counseling/coordinating care. Informed Consent: further education needed Reason for contiued inpatient stay Substantial Risk for: harm to self, inability to function and rapid decompensation
[2021-01-27 18:00] VITALS: BP 113/69; PULSE 92; RESP 18; TEMP 36.6; O2SAT 100
[2021-01-28 04:49] LABS: Glucose, Whole Blood 93 mg/dL (60-115)
--- NOTE | 2021-01-28 04:52 | PC.NURSE ---
At 0430 was summoned to pts room by her roomate yelling help. pt was found having gross tonic clonic activity involving all extremities. pt noted to have a right upward gaze. she did not respond to pain or follow command. she is nonverbal. she was immediately placed in a lateral side lying position. tonic clonic activity lasted approximately 5 minutes. with loud noise (slamming of a door) and screaming(pt next door) triggering several other tonic clonic episodes. poc checked 93 vital signs b/p 125/68 p 68 rr 28 sao2 99%.
[2021-01-28 05:11] VITALS: BP 125/68; PULSE 68; RESP 24; O2SAT 99
--- NOTE | 2021-01-28 05:14 | PC.NURSE ---
of interest, pt was left in room uncovered by linens. upon returning to room, pt was found with linens pulled up over her shoulder. no one had entered pts room to pull linen over pt.
[2021-01-28 06:00] VITALS: BP 105/66; PULSE 98; RESP 16; TEMP 36.4; O2SAT 100
--- NOTE | 2021-01-28 06:49 | PC.NURSE ---
pt ambulating hallway. gait is steady. sensorium intact. speech clear and well articulated. no focal deficits. pt states that she does not understand why we did not medicate her while she had seizure. her vital signs are stable.
--- NOTE | 2021-01-28 16:16 | HO.PSYCHPN ---
Subjective Subjective Date of Service: 01/28/21 Reason For Visit: Psychosis Subjective Notes: Conditional Voluntary Healthcare Proxy: No Guardianship: No Medical Problems Affecting Mental Status: No Interim History: Met with pt and Dr. Christensen, as we were going to initiate a trial of Abilify Fabian today. Discussed with pt her OP team recommendation for Abilify. Given her history of Olanzapine, Haldol Dec and other atypicals, Abilify was recommended to assist with mood mgt. Pt, having been off antipsychotics for a few weeks with no evidence of psychosis. She identified target sx as PTSD, anxiety, recent diagnosis of pseudoseizures. Discussed options. Will trial Remeron 7.5 mg HS along with IM Zofran. Medication Compliance: Yes Side effects from medications: No Attending Groups: Yes Review of Systems Acute medical concerns: Yes Medical Review of Systems: unchanged Review of Systems Reports behavioral changes Psychiatric: Reports anxiety, Reports behavioral changes, Reports irritability and Reports mood swings Mental Status Exam Mental Status Exam Patient Appearance: Fatigued Patient Orientation: Person, Place, Time and Situation Level of Consciousness: Alert Patient Behavior: Appropriate, Talkative, Cooperative, Fatigued and Good Eye Contact Mood Description: Constricted Affect Description: Constricted Patient Cognition Impaired: No Ability to Follow Directions: Good Speech Pattern: Clear, Spontaneous Speech and Soft-Spoken Memory Description: Episodic Impaired Hallucinations: None Delusions: Not Present Perceptual Disturbances: Depersonalization and Derealization Thought Process: Distracted Thought Content: positive for [place], positive for Circumstantial and positive for Suicidal Ideation (denies) Depressive Symptoms: Increased Anxiety, Diff. Making Decisions, Increased Irritability, Changes in Appetite and Increased Fatigue Judgement: Fair Diagnostics Vital Signs (24Hr): Vital Signs - 24 hr 01/27/21 18:00 01/28/21 05:11 01/28/21 06:00 Temperature 98 F 97.6 F Pulse Rate 92 68 98 Respiratory Rate 18 24 H 16 Blood Pressure 113/69 125/68 105/66 Pulse Oximetry 100 99 100 Labs Labs: Laboratory Results - last 48 hr 01/27/21 01/28/21 09:34 04:44 POC Glucose 95 93 Imaging Radiology Impressions: ITS Impressions Head CT 01/25/21 11:49 IMPRESSION: 1. There are no acute intracranial bleeds or territorial infarcts. The study partially redemonstrates the fullness in the suprasellar cistern, better shown on the prior MRI scan. 2. There are no acute osseous or soft tissue abnormalities. Medications Medications Current Medications Acetaminophen (Acetaminophen 325 Mg Tablet) 650 mg PO Q6H PRN PRN Reason: Headache/Pain Mild Scale (1-3) Al Hydroxide/Mg Hydroxide (Magnesium Hydrox/Alum Hydrox 30 Ml Oral.Susp) 30 ml PO Q6H PRN PRN Reason: Heartburn/Nausea Hydroxyzine HCl (Hydroxyzine Hcl 50 Mg/Ml Vial) 50 mg IM Q6H PRN PRN Reason: agitation, anxiety Last Admin: 01/27/21 06:12 Dose: 50 mg Documented by: Hydroxyzine HCl (Hydroxyzine Hcl 50 Mg/Ml Vial) 50 mg IM BEDTIME FROILAN Last Admin: 01/27/21 21:15 Dose: 50 mg Documented by: Hydroxyzine HCl (Hydroxyzine Hcl 50 Mg/Ml Vial) 25 mg IM Q6H PRN PRN Reason: Anxiety Ibuprofen (Ibuprofen 400 Mg Tablet) 400 mg PO Q6H PRN PRN Reason: mild pain Lorazepam (Lorazepam 2 Mg/Ml Vial) 1 mg IM Q4H PRN PRN Reason: Seizure activity Last Admin: 01/27/21 09:18 Dose: 1 mg Documented by: Magnesium Hydroxide (Milk Of Magnesia 30 Ml Oral.Susp) 30 ml PO DAILY PRN PRN Reason: Constipation Mirtazapine (Mirtazapine 7.5 Mg Tablet) 7.5 mg PO BEDTIME FROILAN Ondansetron HCl (Ondansetron Hcl 4 Mg/2 Ml Vial) 4 mg IM DAILY PRN PRN Reason: nausea, vomiting Ondansetron HCl (Ondansetron Hcl 4 Mg/2 Ml Vial) 4 mg IM BEDTIME FROILAN Allergies Allergies Allergy/AdvReac Type Severity Reaction Status Date / Time metoclopramide [From Reglan] Allergy Muscle Verified 01/08/21 20:46 cramps haloperidol [From Haldol] AdvReac Severe Dystonia Verified 01/08/21 20:46 sucralfate [From Carafate] AdvReac Severe vomiting Verified 01/08/21 20:46 Assessment & Plan Assessment & Plan (1) PTSD (post-traumatic stress disorder): Status: Acute Code(s): F43.10 - Post-traumatic stress disorder, unspecified (2) Schizoaffective disorder, bipolar type: Status: Acute Code(s): F25.0 - Schizoaffective disorder, bipolar type Assessment and Plan: 25 yo female returns to after extensive medical evaluation of seizure activity. 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 Pt also with inability to swallow medications due to nausea, vomiting, abdominal pain. GI testing is negative thus far. Discussed with Delaney the next step in her treatment. Discussed possible conversion reactions secondary to PTSD which she agrees is a strong possiblity. Asked if she would consider referral to [facility] if we were able and she declined. She is willing to trial a new out pt therapist (female only) and will do a 14 day Abilify po trial with IM Zofran with the plan to transition to Maintena. Plan: 1. Ensure tid with meals-vanilla only. 2. Ativan 1 mg IM prn seizure activity 3. Zofran 4 mg IM HS prior to Abilify dosing 4. Abilify 10 mg HS. Weekend Coverage: 01/24- Pt continues to have episodes of pseudoseizures in the evening, appears to be responding well to IM hydroxyzine 50 mg at bedtime. Will continue abilify PO trial with IM zofran. 01/25- Will discontinue hydroxyzine PO PRN, as pt prefers IM due to reported GI distress. Discussed with primary provider and will start abilify maintena 300 mg AM. Pt denies adverse effects on PO abilify, tolerating it well. Continues to have pseudoseizure in evening. Discussed with hospitalist, who recommended medical staff services manager contact hospitalist, direct pt to bed, and continue to use hydroxyzine IM PRN or ativan IM PRN for relief. 01/26/21 Tentative Abilify Maintena IM 300 mg for 01/27/21. Dr. Christensen to consult with pt on 01/27 as well. 01/27/21 Hold Abilify PRITCHETT today s/p seizure. 01/28/21 Discontinue Abilify Maintena Remeron 7.5 mg HS I spent 30 minutes with the patient and/or on the patient floor today, greater than?50% of which was spent counseling/coordinating care. Patient educated on: medication risk/benefits Informed Consent: understands and further education needed Reason for contiued inpatient stay Substantial Risk for: harm to self, harm to others, inability to function and rapid decompensation
[2021-01-28 18:00] VITALS: BP 119/77; PULSE 95; RESP 18; TEMP 36.6; O2SAT 100
[2021-01-28] MEDS: LORazepam 2 MG/ML VIAL 1 MG IM ×2 (18:17→23:48)
[2021-01-28] MEDS: ondansetron HCL 4 MG/2 ML VIAL IM (21:16)
[2021-01-28] MEDS: Mirtazapine 7.5 MG TABLET PO (21:16)
[2021-01-28] MEDS: hydrOXYzine HCL 50 MG/ML VIAL IM (21:16)
--- NOTE | 2021-01-29 01:06 | PC.NURSE ---
2348: Pt was given Ativan 1 mg IM for seizure-like activity. This activity lasted for approximately 5-7 minutes. Pt fell asleep almost immediately after receiving Ativan injection.
[2021-01-29 08:32] VITALS: BP 108/76; PULSE 104; RESP 18; TEMP 36.9; O2SAT 100
[2021-01-29 13:45] VITALS: BP 136/78; PULSE 118; RESP 18; O2SAT 99
[2021-01-29] MEDS: LORazepam 2 MG/ML VIAL 1 MG IM ×2 (13:55→20:38)
[2021-01-29 18:00] VITALS: BP 111/74; PULSE 102; RESP 18; TEMP 36.6; O2SAT 100
[2021-01-29] MEDS: ondansetron HCL 4 MG/2 ML VIAL IM (20:38)
[2021-01-29] MEDS: Mirtazapine 7.5 MG TABLET PO (20:39)
[2021-01-29] MEDS: clonazePAM 0.5 MG TABLET PO (20:39)
[2021-01-29 22:00] VITALS: BP 133/58; PULSE 108; RESP 16; TEMP 36.6; O2SAT 98
--- NOTE | 2021-01-29 22:58 | P.PNPSI_ITS ---
Subjective Subjective Date of Service: 01/29/21 Reason For Visit: Psychosis Subjective Notes: Conditional Voluntary Healthcare Proxy: No Guardianship: No Medical Problems Affecting Mental Status: No Interim History: Pt with ongoing seizure activity, triggers appear to be environmental and situational. Tolerated Remeron but with stomach upset. Discussed with pt adding Klonopin 0.5 mg and she concurs. Rationale for anxiety mgt, headache mgt, GI upset. Pt able to discuss frustrations-being assigned to male staff, feeling unheard. Medication Compliance: Yes Side effects from medications: No Attending Groups: Yes Review of Systems Acute medical concerns: No Medical Review of Systems: unchanged Review of Systems Reports behavioral changes Psychiatric: Reports anxiety, Reports behavioral changes, Reports irritability and Reports mood swings Mental Status Exam Mental Status Exam Patient Appearance: Fatigued Patient Orientation: Person, Place, Time and Situation Level of Consciousness: Alert Patient Behavior: Appropriate, Talkative, Cooperative, Fatigued and Good Eye Contact Mood Description: Constricted Affect Description: Constricted Patient Cognition Impaired: No Ability to Follow Directions: Good Speech Pattern: Clear, Spontaneous Speech and Soft-Spoken Memory Description: Episodic Impaired Hallucinations: None Delusions: Not Present Perceptual Disturbances: Depersonalization and Derealization Thought Process: Distracted Thought Content: positive for [place], positive for [place]um[place] and positive for Suicidal Ideation (denies) Depressive Symptoms: Increased Anxiety, Diff. Making Decisions, Increased Irritability, Changes in Appetite and Increased Fatigue Judgement: Fair Diagnostics Vital Signs (24Hr): Vital Signs - 24 hr 01/29/21 08:32 01/29/21 13:45 01/29/21 18:00 Temperature 98.4 F 97.8 F Pulse Rate 104 H 118 H 102 H Respiratory Rate 18 18 18 Blood Pressure 108/76 136/78 111/74 Pulse Oximetry 100 99 100 01/29/21 22:00 Temperature 97.8 F Pulse Rate 108 H Respiratory Rate 16 Blood Pressure 133/58 L Pulse Oximetry 98 Labs Labs: Laboratory Results - last 48 hr 01/28/21 04:44 POC Glucose 93 Imaging Radiology Impressions: ITS Impressions Head CT 01/25/21 11:49 IMPRESSION: 1. There are no acute intracranial bleeds or territorial infarcts. The study partially redemonstrates the fullness in the suprasellar cistern, better shown on the prior MRI scan. 2. There are no acute osseous or soft tissue abnormalities. Medications Medications Current Medications Acetaminophen (Acetaminophen 325 Mg Tablet) 650 mg PO Q6H PRN PRN Reason: Headache/Pain Mild Scale (1-3) Al Hydroxide/Mg Hydroxide (Magnesium Hydrox/Alum Hydrox 30 Ml Oral.Susp) 30 ml PO Q6H PRN PRN Reason: Heartburn/Nausea Clonazepam (Clonazepam 0.5 Mg Tablet) 0.5 mg PO BEDTIME [facility] Last Admin: 01/29/21 20:39 Dose: 0.5 mg Documented by: Hydroxyzine HCl (Hydroxyzine Hcl 50 Mg/Ml Vial) 50 mg IM Q6H PRN PRN Reason: agitation, anxiety Last Admin: 01/27/21 06:12 Dose: 50 mg Documented by: Hydroxyzine HCl (Hydroxyzine Hcl 50 Mg/Ml Vial) 50 mg IM BEDTIME [facility] Last Admin: 01/29/21 20:47 Dose: Not Given Documented by: Hydroxyzine HCl (Hydroxyzine Hcl 50 Mg/Ml Vial) 25 mg IM Q6H PRN PRN Reason: Anxiety Ibuprofen (Ibuprofen 400 Mg Tablet) 400 mg PO Q6H PRN PRN Reason: mild pain Lorazepam (Lorazepam 2 Mg/Ml Vial) 1 mg IM Q4H PRN PRN Reason: Seizure activity Last Admin: 01/29/21 20:38 Dose: 1 mg Documented by: Magnesium Hydroxide (Milk Of Magnesia 30 Ml Oral.Susp) 30 ml PO DAILY PRN PRN Reason: Constipation Mirtazapine (Mirtazapine 7.5 Mg Tablet) 7.5 mg PO BEDTIME [facility] Last Admin: 01/29/21 20:39 Dose: 7.5 mg Documented by: Ondansetron HCl (Ondansetron Hcl 4 Mg/2 Ml Vial) 4 mg IM DAILY PRN PRN Reason: nausea, vomiting Ondansetron HCl (Ondansetron Hcl 4 Mg/2 Ml Vial) 4 mg IM BEDTIME [facility] Last Admin: 01/29/21 20:38 Dose: 4 mg Documented by: Allergies Allergies Allergy/AdvReac Type Severity Reaction Status Date / Time metoclopramide [From Reglan] Allergy Muscle Verified 01/08/21 20:46 cramps haloperidol [From Haldol] AdvReac Severe Dystonia Verified 01/08/21 20:46 sucralfate [From Carafate] AdvReac Severe vomiting Verified 01/08/21 20:46 Assessment & Plan Assessment & Plan (1) PTSD (post-traumatic stress disorder): Status: Acute Code(s): F43.10 - Post-traumatic stress disorder, unspecified (2) Schizoaffective disorder, bipolar type: Status: Acute Code(s): F25.0 - Schizoaffective disorder, bipolar type Assessment and Plan: 25 yo female returns to after extensive medical evaluation of seizure activity. 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 Pt also with inability to swallow medications due to nausea, vomiting, abdominal pain. GI testing is negative thus far. Discussed with Delaney the next step in her treatment. Discussed possible conversion reactions secondary to PTSD which she agrees is a strong possiblity. Asked if she would consider referral to [place] if we were able and she declined. She is willing to trial a new out pt therapist (female only) and will do a 14 day Abilify po trial with IM Zofran with the plan to transition to Maintena. Plan: 1. Ensure tid with meals-vanilla only. 2. Ativan 1 mg IM prn seizure activity 3. Zofran 4 mg IM HS prior to Abilify dosing 4. Abilify 10 mg HS. Weekend Coverage: 01/24- Pt continues to have episodes of pseudoseizures in the evening, appears to be responding well to IM hydroxyzine 50 mg at bedtime. Will continue abilify PO trial with IM zofran. 01/25- Will discontinue hydroxyzine PO PRN, as pt prefers IM due to reported GI distress. Discussed with primary provider and will start abilify maintena 300 mg AM. Pt denies adverse effects on PO abilify, tolerating it well. Continues to have pseudoseizure in evening. Discussed with hospitalist, who recommended staff nuclear medicine technologist contact hospitalist, direct pt to bed, and continue to use hydroxyzine IM PRN or ativan IM PRN for relief. 01/26/21 Tentative Abilify Maintena IM 300 mg for 01/27/21. Dr. Christensen to consult with pt on 01/27 as well. 01/27/21 Hold Abilify PRITCHETT today s/p seizure. 01/28/21 Discontinue Abilify Maintena Remeron 7.5 mg HS 01/29/21 Klonopin 0.5 mg HS Continue Mirtazapine I spent 30 minutes with the patient and/or on the patient floor today, greater than?50% of which was spent counseling/coordinating care. Patient educated on: medication risk/benefits Informed Consent: further education needed Reason for contiued inpatient stay Substantial Risk for: harm to self, harm to others, inability to function and rapid decompensation
[2021-01-30 09:11] VITALS: BP 112/68; PULSE 88; RESP 16; TEMP 36.6; O2SAT 100
--- NOTE | 2021-01-30 13:43 | P.PNPSI_ITS ---
Subjective Subjective Date of Service: 01/30/21 Reason For Visit: Psychosis Subjective Notes: Conditional Voluntary Healthcare Proxy: No Guardianship: No Medical Problems Affecting Mental Status: No Interim History: Pt experiencing seizure activity today. She identifies being upset that family will not bring in her eyeglasses as a potential precipitant. Pt accepted for review worksheets on emotional regulation-figuring out what emotions are doing for me, emotional diary and observation and description worksheets. Medication Compliance: Yes Side effects from medications: No Attending Groups: Yes Review of Systems Acute medical concerns: No Medical Review of Systems: unchanged Review of Systems Reports behavioral changes Psychiatric: Reports anxiety, Reports behavioral changes, Reports irritability and Reports mood swings Mental Status Exam Mental Status Exam Patient Appearance: Fatigued Patient Orientation: Person, Place, Time and Situation Level of Consciousness: Alert Patient Behavior: Appropriate, Talkative, Cooperative, Fatigued and Good Eye Contact Mood Description: Constricted Affect Description: Constricted Patient Cognition Impaired: No Ability to Follow Directions: Good Speech Pattern: Clear, Spontaneous Speech and Soft-Spoken Memory Description: Episodic Impaired Hallucinations: None Delusions: Not Present Perceptual Disturbances: Depersonalization and Derealization Thought Process: Distracted Thought Content: positive for [place], positive for Circumstantial and positive for Suicidal Ideation (denies) Depressive Symptoms: Increased Anxiety, Diff. Making Decisions, Increased Irritability, Changes in Appetite and Increased Fatigue Judgement: Fair Diagnostics Vital Signs (24Hr): Vital Signs - 24 hr 01/29/21 13:45 01/29/21 18:00 01/29/21 22:00 Temperature 97.8 F 97.8 F Pulse Rate 118 H 102 H 108 H Respiratory Rate 18 18 16 Blood Pressure 136/78 111/74 133/58 L Pulse Oximetry 99 100 98 01/30/21 09:11 Temperature 97.9 F Pulse Rate 88 Respiratory Rate 16 Blood Pressure 112/68 Pulse Oximetry 100 Imaging Radiology Impressions: ITS Impressions Head CT 01/25/21 11:49 IMPRESSION: 1. There are no acute intracranial bleeds or territorial infarcts. The study partially redemonstrates the fullness in the suprasellar cistern, better shown on the prior MRI scan. 2. There are no acute osseous or soft tissue abnormalities. Medications Medications Current Medications Acetaminophen (Acetaminophen 325 Mg Tablet) 650 mg PO Q6H PRN PRN Reason: Headache/Pain Mild Scale (1-3) Al Hydroxide/Mg Hydroxide (Magnesium Hydrox/Alum Hydrox 30 Ml Oral.Susp) 30 ml PO Q6H PRN PRN Reason: Heartburn/Nausea Clonazepam (Clonazepam 0.5 Mg Tablet) 0.5 mg PO BEDTIME [facility] Last Admin: 01/29/21 20:39 Dose: 0.5 mg Documented by: Hydroxyzine HCl (Hydroxyzine Hcl 50 Mg/Ml Vial) 50 mg IM Q6H PRN PRN Reason: agitation, anxiety Last Admin: 01/27/21 06:12 Dose: 50 mg Documented by: Hydroxyzine HCl (Hydroxyzine Hcl 50 Mg/Ml Vial) 50 mg IM BEDTIME [facility] Last Admin: 01/29/21 20:47 Dose: Not Given Documented by: Hydroxyzine HCl (Hydroxyzine Hcl 50 Mg/Ml Vial) 25 mg IM Q6H PRN PRN Reason: Anxiety Ibuprofen (Ibuprofen 400 Mg Tablet) 400 mg PO Q6H PRN PRN Reason: mild pain Lorazepam (Lorazepam 2 Mg/Ml Vial) 1 mg IM Q4H PRN PRN Reason: Seizure activity Last Admin: 01/29/21 20:38 Dose: 1 mg Documented by: Magnesium Hydroxide (Milk Of Magnesia 30 Ml Oral.Susp) 30 ml PO DAILY PRN PRN Reason: Constipation Mirtazapine (Mirtazapine 7.5 Mg Tablet) 7.5 mg PO BEDTIME [facility] Last Admin: 01/29/21 20:39 Dose: 7.5 mg Documented by: Ondansetron HCl (Ondansetron Hcl 4 Mg/2 Ml Vial) 4 mg IM DAILY PRN PRN Reason: nausea, vomiting Ondansetron HCl (Ondansetron Hcl 4 Mg/2 Ml Vial) 4 mg IM BEDTIME [facility] Last Admin: 01/29/21 20:38 Dose: 4 mg Documented by: Allergies Allergies Allergy/AdvReac Type Severity Reaction Status Date / Time metoclopramide [From Reglan] Allergy Muscle Verified 01/08/21 20:46 cramps haloperidol [From Haldol] AdvReac Severe Dystonia Verified 01/08/21 20:46 sucralfate [From Carafate] AdvReac Severe vomiting Verified 01/08/21 20:46 Assessment & Plan Assessment & Plan (1) PTSD (post-traumatic stress disorder): Status: Acute Code(s): F43.10 - Post-traumatic stress disorder, unspecified (2) Schizoaffective disorder, bipolar type: Status: Acute Code(s): F25.0 - Schizoaffective disorder, bipolar type Assessment and Plan: 25 yo female returns to after extensive medical evaluation of seizure activity. 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 Pt also with inability to swallow medications due to nausea, vomiting, abdominal pain. GI testing is negative thus far. Discussed with Delaney the next step in her treatment. Discussed possible conversion reactions secondary to PTSD which she agrees is a strong possiblity. Asked if she would consider referral to [place] if we were able and she declined. She is willing to trial a new out pt therapist (female only) and will do a 14 day Abilify po trial with IM Zofran with the plan to transition to Maintena. Plan: 1. Ensure tid with meals-vanilla only. 2. Ativan 1 mg IM prn seizure activity 3. Zofran 4 mg IM HS prior to Abilify dosing 4. Abilify 10 mg HS. Weekend Coverage: 01/24- Pt continues to have episodes of pseudoseizures in the evening, appears to be responding well to IM hydroxyzine 50 mg at bedtime. Will continue abilify PO trial with IM zofran. 01/25- Will discontinue hydroxyzine PO PRN, as pt prefers IM due to reported GI distress. Discussed with primary provider and will start abilify maintena 300 mg AM. Pt denies adverse effects on PO abilify, tolerating it well. Continues to have pseudoseizure in evening. Discussed with hospitalist, who recommended chief of staff doctor contact hospitalist, direct pt to bed, and continue to use hydroxyzine IM PRN or ativan IM PRN for relief. 01/26/21 Tentative Abilify Maintena IM 300 mg for 01/27/21. Dr. Christensen to consult with pt on 01/27 as well. 01/27/21 Hold Abilify PRITCHETT today s/p seizure. 01/28/21 Discontinue Abilify Maintena Remeron 7.5 mg HS 01/29/21 Klonopin 0.5 mg HS Continue Mirtazapine 01/30/21 Increase Zofran to 8 mg IM HS-pt request as she is having GI distress with new medications. Continue Klonopin/Mirtazapine trial I spent 20 minutes with the patient and/or on the patient floor today, greater than?50% of which was spent counseling/coordinating care. Patient educated on: medication risk/benefits and therapeutic strategies Informed Consent: further education needed Reason for contiued inpatient stay Substantial Risk for: inability to function and rapid decompensation
[2021-01-30] MEDS: LORazepam 2 MG/ML VIAL 1 MG IM (15:13)
[2021-01-30 18:00] VITALS: BP 107/57; PULSE 102; RESP 16; TEMP 36.8
[2021-01-30 20:20] VITALS: BP 105/57; PULSE 102; RESP 16; O2SAT 99
[2021-01-30] MEDS: hydrOXYzine HCL 50 MG/ML VIAL IM (20:27)
[2021-01-30 20:45] VITALS: BP 110/62; PULSE 98; RESP 16; TEMP 36.9; O2SAT 99
[2021-01-30] MEDS: ondansetron HCL 4 MG/2 ML VIAL 8 MG IM (21:27)
[2021-01-30] MEDS: Mirtazapine 7.5 MG TABLET PO (22:21)
[2021-01-30] MEDS: clonazePAM 0.5 MG TABLET PO (22:21)
--- NOTE | 2021-01-30 22:31 | PC.NURSE ---
Addendum entered by Cristiane Graham RN 01/30/21 22:41: It is to be noted that PTs vital signs remained stable throughout seizure like activity. Original Note: At approximately 2014 patient was found to be having seizure like activity in kitchen area. Upper extremities were shaking and she had upward right sided gaze. PT able to transfer from kitchen chair to wheelchair following simple commands. PT wheeled to room and transferred to bed and placed on right lateral side with Aura Lechuga at the bedside. This nurse administered Hydroxyzine 50mg IM (see APR). PT continued with mild upper extremity jerking for approximately 8 minutes and was able to recover without incident. At approximately 20:40 PT is A & O x 4, sitting upright in bed, speech is clear and precise. Nothing further to report at this time.
--- NOTE | 2021-01-31 06:13 | P.PNPSI_ITS ---
Subjective Subjective Date of Service: 01/31/21 Reason For Visit: Psychosis Interim History: Pt experiencing seizure activity today. She identifies being upset that family will not bring in her eyeglasses as a potential precipitant. Pt accepted for review worksheets on emotional regulation-figuring out what emotions are doing for me, emotional diary and observation and description worksheets. !04/03/20: Refuses to engage with TW. I dont talk to men . Hx pseudoSz noted. Review of Systems Reports behavioral changes and Reports seizure-like activity (medical/neuro team report non-epileptic activity) Psychiatric: Reports anxiety, Reports behavioral changes, Reports depression, Reports irritability, Reports anhedonia, Reports mood swings and Reports paranoia Mental Status Exam Mental Status Exam Narrative: Patient Appearance:?Appropriate Patient Orientation:?Person, Place, Time and Situation Level of Consciousness:?Awake and Alert Patient Behavior:?Guarded, Talkative, Cooperative, Suspicious, Anxious, Fearful and Good Eye Contact Mood Description:?Suspicious, Fearful, Hostile, Anxious, Labile, Nervous and Apprehensive Affect Description:?Labile Patient Cognition Impaired:?No Ability to Follow Directions:?Good Speech Pattern:?Spontaneous Speech and Soft-Spoken Memory Description:?Remote Impaired and Episodic Impaired Hallucinations:?None Delusions:?Paranoid Ideation Perceptual Disturbances:?Depersonalization and Derealization Thought Process:?Distracted Thought Content:?positive for [place] and positive for Circumstantial Depressive Symptoms:?Increased Anxiety, Diff. Making Decisions, Increased Irritability, Isolating-Friends/Family, Unexplained Headaches, Unhappiness, Unexplained Stomach Pain and Difficulty Concentrating Judgment:?Fair Patient Appearance: Fatigued Patient Orientation: Person, Place, Time and Situation Level of Consciousness: Alert Patient Behavior: Appropriate, Talkative, Cooperative, Fatigued and Good Eye Contact Mood Description: Constricted Affect Description: Constricted Patient Cognition Impaired: No Ability to Follow Directions: Good Speech Pattern: Clear, Spontaneous Speech and Soft-Spoken Memory Description: Episodic Impaired Diagnostics Vital Signs (24Hr): Vital Signs - 24 hr 01/30/21 09:11 01/30/21 18:00 01/30/21 20:20 Temperature 97.9 F 98.2 F Pulse Rate 88 102 H 102 H Respiratory Rate 16 16 16 Blood Pressure 112/68 107/57 L 105/57 L Pulse Oximetry 100 99 01/30/21 20:45 Temperature 98.4 F Pulse Rate 98 Respiratory Rate 16 Blood Pressure 110/62 Pulse Oximetry 99 Imaging Radiology Impressions: ITS Impressions Head CT 01/25/21 11:49 IMPRESSION: 1. There are no acute intracranial bleeds or territorial infarcts. The study partially redemonstrates the fullness in the suprasellar cistern, better shown on the prior MRI scan. 2. There are no acute osseous or soft tissue abnormalities. Medications Medications Current Medications Acetaminophen (Acetaminophen 325 Mg Tablet) 650 mg PO Q6H PRN PRN Reason: Headache/Pain Mild Scale (1-3) Al Hydroxide/Mg Hydroxide (Magnesium Hydrox/Alum Hydrox 30 Ml Oral.Susp) 30 ml PO Q6H PRN PRN Reason: Heartburn/Nausea Clonazepam (Clonazepam 0.5 Mg Tablet) 0.5 mg PO BEDTIME [facility] Last Admin: 01/30/21 22:21 Dose: 0.5 mg Documented by: Hydroxyzine HCl (Hydroxyzine Hcl 50 Mg/Ml Vial) 50 mg IM Q6H PRN PRN Reason: agitation, anxiety Last Admin: 01/27/21 06:12 Dose: 50 mg Documented by: Hydroxyzine HCl (Hydroxyzine Hcl 50 Mg/Ml Vial) 50 mg IM BEDTIME [facility] Last Admin: 01/30/21 20:27 Dose: 50 mg Documented by: Hydroxyzine HCl (Hydroxyzine Hcl 50 Mg/Ml Vial) 25 mg IM Q6H PRN PRN Reason: Anxiety Ibuprofen (Ibuprofen 400 Mg Tablet) 400 mg PO Q6H PRN PRN Reason: mild pain Lorazepam (Lorazepam 2 Mg/Ml Vial) 1 mg IM Q4H PRN PRN Reason: Seizure activity Last Admin: 01/30/21 15:13 Dose: 1 mg Documented by: Magnesium Hydroxide (Milk Of Magnesia 30 Ml Oral.Susp) 30 ml PO DAILY PRN PRN Reason: Constipation Mirtazapine (Mirtazapine 7.5 Mg Tablet) 7.5 mg PO BEDTIME [facility] Last Admin: 01/30/21 22:21 Dose: 7.5 mg Documented by: Ondansetron HCl (Ondansetron Hcl 4 Mg/2 Ml Vial) 4 mg IM DAILY PRN PRN Reason: nausea, vomiting Ondansetron HCl (Ondansetron Hcl 4 Mg/2 Ml Vial) 8 mg IM BEDTIME [facility] Last Admin: 01/30/21 21:27 Dose: 8 mg Documented by: Allergies Allergies Allergy/AdvReac Type Severity Reaction Status Date / Time metoclopramide [From Reglan] Allergy Muscle Verified 01/08/21 20:46 cramps haloperidol [From Haldol] AdvReac Severe Dystonia Verified 01/08/21 20:46 sucralfate [From Carafate] AdvReac Severe vomiting Verified 01/08/21 20:46 Assessment & Plan Assessment & Plan (1) PTSD (post-traumatic stress disorder): Status: Acute Code(s): F43.10 - Post-traumatic stress disorder, unspecified (2) Schizoaffective disorder, bipolar type: Status: Acute Code(s): F25.0 - Schizoaffective disorder, bipolar type Assessment and Plan: 25 yo female returns to after extensive medical evaluation of seizure activity. 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 Pt also with inability to swallow medications due to nausea, vomiting, abdominal pain. GI testing is negative thus far. Discussed with Delaney the next step in her treatment. Discussed possible conversion reactions secondary to PTSD which she agrees is a strong possiblity. Asked if she would consider referral to [place] if we were able and she declined. She is willing to trial a new out pt therapist (female only) and will do a 14 day Abilify po trial with IM Zofran with the plan to transition to Maintena. Plan: 1. Ensure tid with meals-vanilla only. 2. Ativan 1 mg IM prn seizure activity 3. Zofran 4 mg IM HS prior to Abilify dosing 4. Abilify 10 mg HS. Weekend Coverage: 01/24- Pt continues to have episodes of pseudoseizures in the evening, appears to be responding well to IM hydroxyzine 50 mg at bedtime. Will continue abilify PO trial with IM zofran. 01/25- Will discontinue hydroxyzine PO PRN, as pt prefers IM due to reported GI distress. Discussed with primary provider and will start abilify maintena 300 mg AM. Pt denies adverse effects on PO abilify, tolerating it well. Continues to have pseudoseizure in evening. Discussed with hospitalist, who recommended community health nurse staff contact hospitalist, direct pt to bed, and continue to use hydroxyzine IM PRN or ativan IM PRN for relief. 01/26/21 Tentative Abilify Maintena IM 300 mg for 01/27/21. Dr. Christensen to consult with pt on 01/27 as well. 01/27/21 Hold Abilify PRITCHETT today s/p seizure. 01/28/21 Discontinue Abilify Maintena Remeron 7.5 mg HS 01/29/21 Klonopin 0.5 mg HS Continue Mirtazapine 01/30/21 Increase Zofran to 8 mg IM HS-pt request as she is having GI distress with new medications. Continue Klonopin/Mirtazapine trial I spent minutes with the patient and/or on the patient floor today, greater than?50% of which was spent counseling/coordinating care. Reason for contiued inpatient stay Substantial Risk for: rapid decompensation
[2021-01-31 11:07] VITALS: BP 123/72; PULSE 124; RESP 16; TEMP 36.3; O2SAT 99
[2021-01-31 16:46] VITALS: BP 111/61; PULSE 104; RESP 16; TEMP 36.9; O2SAT 100
[2021-01-31] MEDS: ondansetron HCL 4 MG/2 ML VIAL 8 MG IM (20:50)
[2021-01-31 21:00] VITALS: BP 116/58; PULSE 102; RESP 16; TEMP 37.2; O2SAT 98
[2021-01-31] MEDS: LORazepam 2 MG/ML VIAL 1 MG IM (21:00)
[2021-01-31 21:10] VITALS: BP 106/58; PULSE 99; RESP 16; O2SAT 99
[2021-01-31 21:20] VITALS: BP 102/56; PULSE 94; RESP 16; O2SAT 98
--- NOTE | 2021-01-31 22:07 | PC.NURSE ---
At approximately 20:45 this nurse asked pt if she would like to take her night time mediation. PT ambulated to bedroom and was talking with this nurse. Ondansetron was given IM (see MAR). Patient immediately began eye fluttering and slow jerking movements of upper extremeties. VS 116/58 HR 102 T 99.0 O2 98%. 1mg Ativan was then given at approximately 21:00 (see MAR). PT continued to have eye fluttering slow jerking movements for approximately 15 minutes and it began to taper off but eye fluttering lasted approximately 45 minutes total. VS remained stable throughout activity.
[2021-01-31] MEDS: Mirtazapine 7.5 MG TABLET PO (22:29)
[2021-01-31] MEDS: clonazePAM 0.5 MG TABLET PO (22:29)
--- NOTE | 2021-02-01 15:07 | P.PNPSI_ITS ---
Subjective Subjective Date of Service: 02/01/21 Reason For Visit: Psychosis Interim History: Pt experiencing seizure activity today. She identifies being upset that family will not bring in her eyeglasses as a potential precipitant. Pt accepted for review worksheets on emotional regulation-figuring out what emotions are doing for me, emotional diary and observation and description worksheets. !04/03/20: Refuses to engage with TW. I dont talk to men . Hx pseudoSz noted. 02/01/21: Remains much the same. Refused to interact. Review of Systems Reports behavioral changes and Reports seizure-like activity (medical/neuro team report non-epileptic activity) Psychiatric: Reports anxiety, Reports behavioral changes, Reports depression, Reports irritability, Reports anhedonia, Reports mood swings and Reports paranoia Mental Status Exam Mental Status Exam Narrative: Patient Appearance:?Appropriate Patient Orientation:?Person, Place, Time and Situation Level of Consciousness:?Awake and Alert Patient Behavior:?Guarded, Talkative, Cooperative, Suspicious, Anxious, Fearful and Good Eye Contact Mood Description:?Suspicious, Fearful, Hostile, Anxious, Labile, Nervous and Apprehensive Affect Description:?Labile Patient Cognition Impaired:?No Ability to Follow Directions:?Good Speech Pattern:?Spontaneous Speech and Soft-Spoken Memory Description:?Remote Impaired and Episodic Impaired Hallucinations:?None Delusions:?Paranoid Ideation Perceptual Disturbances:?Depersonalization and Derealization Thought Process:?Distracted Thought Content:?positive for [place] and positive for Circumstantial Depressive Symptoms:?Increased Anxiety, Diff. Making Decisions, Increased Irritability, Isolating-Friends/Family, Unexplained Headaches, Unhappiness, Unexplained Stomach Pain and Difficulty Concentrating Judgment:?Fair Patient Appearance: Fatigued Patient Orientation: Person, Place, Time and Situation Level of Consciousness: Alert Patient Behavior: Appropriate, Talkative, Cooperative, Fatigued and Good Eye Contact Mood Description: Constricted Affect Description: Constricted Patient Cognition Impaired: No Ability to Follow Directions: Good Speech Pattern: Clear, Spontaneous Speech and Soft-Spoken Memory Description: Episodic Impaired Diagnostics Vital Signs (24Hr): Vital Signs - 24 hr 01/31/21 16:46 01/31/21 21:00 01/31/21 21:10 Temperature 98.4 F 99 F Pulse Rate 104 H 102 H 99 Respiratory Rate 16 16 16 Blood Pressure 111/61 116/58 L 106/58 L Pulse Oximetry 100 98 99 01/31/21 21:20 Temperature Pulse Rate 94 Respiratory Rate 16 Blood Pressure 102/56 L Pulse Oximetry 98 Imaging Radiology Impressions: ITS Impressions Head CT 01/25/21 11:49 IMPRESSION: 1. There are no acute intracranial bleeds or territorial infarcts. The study partially redemonstrates the fullness in the suprasellar cistern, better shown on the prior MRI scan. 2. There are no acute osseous or soft tissue abnormalities. Medications Medications Current Medications Acetaminophen (Acetaminophen 325 Mg Tablet) 650 mg PO Q6H PRN PRN Reason: Headache/Pain Mild Scale (1-3) Al Hydroxide/Mg Hydroxide (Magnesium Hydrox/Alum Hydrox 30 Ml Oral.Susp) 30 ml PO Q6H PRN PRN Reason: Heartburn/Nausea Clonazepam (Clonazepam 0.5 Mg Tablet) 0.5 mg PO BEDTIME FROILAN Last Admin: 01/31/21 22:29 Dose: 0.5 mg Documented by: Hydroxyzine HCl (Hydroxyzine Hcl 50 Mg/Ml Vial) 50 mg IM Q6H PRN PRN Reason: agitation, anxiety Last Admin: 01/27/21 06:12 Dose: 50 mg Documented by: Hydroxyzine HCl (Hydroxyzine Hcl 50 Mg/Ml Vial) 50 mg IM BEDTIME [facility]OILAN Last Admin: 01/31/21 22:03 Dose: Not Given Documented by: Hydroxyzine HCl (Hydroxyzine Hcl 50 Mg/Ml Vial) 25 mg IM Q6H PRN PRN Reason: Anxiety Ibuprofen (Ibuprofen 400 Mg Tablet) 400 mg PO Q6H PRN PRN Reason: mild pain Lorazepam (Lorazepam 2 Mg/Ml Vial) 1 mg IM Q4H PRN PRN Reason: Seizure activity Last Admin: 01/31/21 21:00 Dose: 1 mg Documented by: Magnesium Hydroxide (Milk Of Magnesia 30 Ml Oral.Susp) 30 ml PO DAILY PRN PRN Reason: Constipation Mirtazapine (Mirtazapine 7.5 Mg Tablet) 7.5 mg PO BEDTIME FROILAN Last Admin: 01/31/21 22:29 Dose: 7.5 mg Documented by: Ondansetron HCl (Ondansetron Hcl 4 Mg/2 Ml Vial) 4 mg IM DAILY PRN PRN Reason: nausea, vomiting Ondansetron HCl (Ondansetron Hcl 4 Mg/2 Ml Vial) 8 mg IM BEDTIME FROILAN Last Admin: 01/31/21 20:50 Dose: 8 mg Documented by: Allergies Allergies Allergy/AdvReac Type Severity Reaction Status Date / Time metoclopramide [From Reglan] Allergy Muscle Verified 01/08/21 20:46 cramps haloperidol [From Haldol] AdvReac Severe Dystonia Verified 01/08/21 20:46 sucralfate [From Carafate] AdvReac Severe vomiting Verified 01/08/21 20:46 Assessment & Plan Assessment & Plan (1) PTSD (post-traumatic stress disorder): Status: Acute Code(s): F43.10 - Post-traumatic stress disorder, unspecified (2) Schizoaffective disorder, bipolar type: Status: Acute Code(s): F25.0 - Schizoaffective disorder, bipolar type Assessment and Plan: 25 yo female returns to after extensive medical evaluation of seizure activity. 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 Pt also with inability to swallow medications due to nausea, vomiting, abdominal pain. GI testing is negative thus far. Discussed with Delaney the next step in her treatment. Discussed possible conversion reactions secondary to PTSD which she agrees is a strong possiblity. Asked if she would consider referral to [facility] if we were able and she declined. She is willing to trial a new out pt therapist (female only) and will do a 14 day Abilify po trial with IM Zofran with the plan to transition to Maintena. Plan: 1. Ensure tid with meals-vanilla only. 2. Ativan 1 mg IM prn seizure activity 3. Zofran 4 mg IM HS prior to Abilify dosing 4. Abilify 10 mg HS. Weekend Coverage: 01/24- Pt continues to have episodes of pseudoseizures in the evening, appears to be responding well to IM hydroxyzine 50 mg at bedtime. Will continue abilify PO trial with IM zofran. 01/25- Will discontinue hydroxyzine PO PRN, as pt prefers IM due to reported GI distress. Discussed with primary provider and will start abilify maintena 300 mg AM. Pt denies adverse effects on PO abilify, tolerating it well. Continues to have pseudoseizure in evening. Discussed with hospitalist, who recommended staff submarine warfare officer contact hospitalist, direct pt to bed, and continue to use hydroxyzine IM PRN or ativan IM PRN for relief. 01/26/21 Tentative Abilify Maintena IM 300 mg for 01/27/21. Dr. Christensen to consult with pt on 01/27 as well. 01/27/21 Hold Abilify PRITCHETT today s/p seizure. 01/28/21 Discontinue Abilify Maintena Remeron 7.5 mg HS 01/29/21 Klonopin 0.5 mg HS Continue Mirtazapine 01/30/21 Increase Zofran to 8 mg IM HS-pt request as she is having GI distress with new medications. Continue Klonopin/Mirtazapine trial 01/31 and 02/01/21: Ct Rx plan I spent minutes with the patient and/or on the patient floor today, greater than?50% of which was spent counseling/coordinating care. Reason for contiued inpatient stay Substantial Risk for: rapid decompensation
[2021-02-01] MEDS: hydrOXYzine HCL 50 MG/ML VIAL 25 MG IM (17:19)
[2021-02-01 17:47] VITALS: BP 96/57; PULSE 90; RESP 18; TEMP 36.7; O2SAT 97
[2021-02-01] MEDS: ondansetron HCL 4 MG/2 ML VIAL 8 MG IM (19:54)
[2021-02-01] MEDS: clonazePAM 0.5 MG TABLET PO (21:09)
[2021-02-01] MEDS: Mirtazapine 7.5 MG TABLET PO (21:11)
[2021-02-02] MEDS: hydrOXYzine HCL 50 MG/ML VIAL IM ×3 (01:04→22:53)
--- NOTE | 2021-02-02 03:39 | PC.NURSE ---
Patient is noted to be ambulating out to the nurse's station with un-even gait and tilted head. Patient reports I don't feel good. Pt. is instructed to return to her room and bed for safety while utilization review specialist medications. Patient is escorted back to room and returns to bed without incident. Patient is noted to have seizure like activity while laying in bed, with eyes rolled back Fluttering. Two RNs, assess and wash & dry frequently utilized IM sites; Bilateral Deltoids, Bilateral Gluteals. Three bandaids are removed from Right Deltoid, One bandaids removed from Left Deltoid. One bandaid removed from Right Glut, 2 Bandaids removed from Left Glut. Skin breakdown is noted to bilateral deltoids; worse on Left Deltoids. Skin noted to be open and leaking clear fluid from Left Delotid; Washed & Dried, and covered with Dry Sterile Dressing. Patient is administered IM hydroxyzine to Right Deltoid without incident. Patient's face and feet are washed and dried. Patient is noted to be mal-odorous as she has been refusing to attend to hygiene care. A full bed linen change is completed and patient's dirty clothing around room is collected to be washed/dried. Patient remained in bed with seizure like activity throughout hygiene care and bed linen change till RNs began going through the pockets of her jacket and contents on desk at which point she was able to make and maintain eye contact and clearly state what items she did not want RNs throwing out as they had personal importance to her. Will continue to assess for safety and well being
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
--- NOTE | 2021-02-02 16:08 | PC.NURSE ---
At 1545 p Vitals were takeatient was speaking with a Route Aide in the Art Room and was noted to be having seizure type activity: head town, eyes fluttering, limp. Patient was assisted into wheelchair and assisted into bed and placed in rescue Vitals position. Vitals were taken temp 98.8, BP 99/55, hear rate 100, O2 sats was 100%on room air. Patient remained nonverbal but was reassured by staff. Some fluttering of eyes with eyes rolling backwards. Patient was given and IM of 100 mg of Hydroxyzine in the left gluteus lawanda at 1610/ Patient in NAD at this time. Will monitor as needed.
[2021-02-02 22:00] VITALS: BP 108/61; PULSE 98; TEMP 36.7; O2SAT 99
[2021-02-02] MEDS: ondansetron HCL 4 MG/2 ML VIAL 8 MG IM (22:07)
[2021-02-02] MEDS: Mirtazapine 7.5 MG TABLET PO (22:42)
[2021-02-02] MEDS: clonazePAM 0.5 MG TABLET PO (22:42)
[2021-02-03] MEDS: hydrOXYzine HCL 50 MG/ML VIAL IM ×3 (12:50→20:42)
[2021-02-03 16:25] VITALS: BP 125/78; PULSE 97; RESP 16; TEMP 37.1
[2021-02-03 16:45] VITALS: BP 120/73; PULSE 85; RESP 16
[2021-02-03 18:05] VITALS: BP 119/67; PULSE 101; RESP 16
[2021-02-03 18:30] VITALS: BP 110/74; PULSE 94; RESP 16
--- NOTE | 2021-02-03 19:45 | PC.NURSE ---
Addendum entered by Cristiane Graham RN 02/03/21 19:53: Hydroxyzine 50mg given IM - see MAR Original Note: At approximately 16:20 pt was meeting with provider in room when she began to have pseudo seizure activity. PT was placed in left lateral position. This event lasted approximately 25 minutes. VS remained stable throughout. PT recovered with no complaints post incident.
--- NOTE | 2021-02-03 19:48 | PC.NURSE ---
At approximately 17:50 pt began to exhibit pseudo seizure like activity while in kitchen. PT was lowered to the floor and a pillow was placed under her head to prevent injury. PT was able to follow verbal commands and was able to stand up and transfer to wheelchair with a 2 person assist. PT was brought to her room, transferred to bed and placed in left lateral rescue position. Seizure like activity lasted approximately 30 mins on and off, with eyes rolling back, and mild shaking of all limbs. VS remained stable throughout. call taker contacted, no further orders. Patient supported through event and recovered without incident. Will continue to monitor.
[2021-02-03] MEDS: ondansetron HCL 4 MG/2 ML VIAL 8 MG IM (20:42)
[2021-02-03] MEDS: clonazePAM 0.5 MG TABLET PO (21:04)
[2021-02-03] MEDS: Mirtazapine 7.5 MG TABLET PO (21:04)
--- NOTE | 2021-02-03 21:32 | HO.PSYCHPN ---
Subjective Subjective Date of Service: 02/03/21 Reason For Visit: Psychosis Subjective Notes: Conditional Voluntary Healthcare Proxy: No Guardianship: No Medical Problems Affecting Mental Status: No Interim History: Irritable, seizure activity present. Pt is struggling with planning the next step of care and treatment. Struggles with the psychosis label of symptoms. Identifies PTSD, Anxiety, Depression, Bipolar Mood Disorder as symptoms with validity to her condition. Prepared a handout with comparison of Haldol, Olanzapine, Abilify and common prescription rationale and FDA approved rationale for family meeting 02/04. Medication Compliance: Yes Side effects from medications: No Attending Groups: Yes Review of Systems Acute medical concerns: No Review of Systems Reports behavioral changes Psychiatric: Reports anxiety, Reports behavioral changes, Reports depression, Reports hopelessness, Reports irritability, Reports mood swings and Reports paranoia Mental Status Exam Mental Status Exam Patient Appearance: Disheveled and Unkempt Patient Orientation: Person, Place, Time and Situation Level of Consciousness: Alert Patient Behavior: Guarded, Talkative, Anxious, Distractible, Good Eye Contact and Impulsive Mood Description: Anxious, Labile, Angry and Apprehensive Affect Description: Labile Patient Cognition Impaired: No Ability to Follow Directions: Good Speech Pattern: Spontaneous Speech Memory Description: Episodic Impaired Hallucinations: None Delusions: Paranoid Ideation Perceptual Disturbances: Depersonalization and Derealization Thought Process: Distracted and Rumination Thought Content: positive for Circumstantial Depressive Symptoms: Increased Anxiety, Diff. Making Decisions, Increased Irritability, Hopelessness, Unhappiness and Difficulty Concentrating Judgement: Fair Diagnostics Vital Signs (24Hr): Vital Signs - 24 hr 02/02/21 22:00 02/03/21 16:25 02/03/21 16:45 Temperature 98.0 F 98.8 F Pulse Rate 98 97 85 Respiratory Rate 16 16 Blood Pressure 108/61 125/78 120/73 Pulse Oximetry 99 02/03/21 18:05 02/03/21 18:30 Temperature Pulse Rate 101 H 94 Respiratory Rate 16 16 Blood Pressure 119/67 110/74 Pulse Oximetry Imaging Radiology Impressions: ITS Impressions Head CT 01/25/21 11:49 IMPRESSION: 1. There are no acute intracranial bleeds or territorial infarcts. The study partially redemonstrates the fullness in the suprasellar cistern, better shown on the prior MRI scan. 2. There are no acute osseous or soft tissue abnormalities. Medications Medications Current Medications Acetaminophen (Acetaminophen 325 Mg Tablet) 650 mg PO Q6H PRN PRN Reason: Headache/Pain Mild Scale (1-3) Al Hydroxide/Mg Hydroxide (Magnesium Hydrox/Alum Hydrox 30 Ml Oral.Susp) 30 ml PO Q6H PRN PRN Reason: Heartburn/Nausea Clonazepam (Clonazepam 0.5 Mg Tablet) 0.5 mg PO BEDTIME [facility] Last Admin: 02/03/21 21:04 Dose: 0.5 mg Documented by: Hydroxyzine HCl (Hydroxyzine Hcl 50 Mg/Ml Vial) 50 mg IM Q6H PRN PRN Reason: agitation, anxiety Last Admin: 02/03/21 16:34 Dose: 50 mg Documented by: Hydroxyzine HCl (Hydroxyzine Hcl 50 Mg/Ml Vial) 50 mg IM BEDTIME [facility] Last Admin: 02/03/21 20:42 Dose: 50 mg Documented by: Hydroxyzine HCl (Hydroxyzine Hcl 50 Mg/Ml Vial) 25 mg IM Q6H PRN PRN Reason: Anxiety Last Admin: 02/01/21 17:19 Dose: 25 mg Documented by: Ibuprofen (Ibuprofen 400 Mg Tablet) 400 mg PO Q6H PRN PRN Reason: mild pain Lorazepam (Lorazepam 2 Mg/Ml Vial) 1 mg IM Q4H PRN PRN Reason: Seizure activity Last Admin: 01/31/21 21:00 Dose: 1 mg Documented by: Magnesium Hydroxide (Milk Of Magnesia 30 Ml Oral.Susp) 30 ml PO DAILY PRN PRN Reason: Constipation Mirtazapine (Mirtazapine 7.5 Mg Tablet) 7.5 mg PO BEDTIME [facility] Last Admin: 02/03/21 21:04 Dose: 7.5 mg Documented by: Multi-Ingred Cream/Lotion/Oil/Oint (Mineral Oil/Petrolatum,White 106 Gm Tube) 1 appl TOPICAL TID [facility] Last Admin: 02/03/21 13:32 Dose: Not Given Documented by: Ondansetron HCl (Ondansetron Hcl 4 Mg/2 Ml Vial) 4 mg IM DAILY PRN PRN Reason: nausea, vomiting Ondansetron HCl (Ondansetron Hcl 4 Mg/2 Ml Vial) 8 mg IM BEDTIME [facility] Last Admin: 02/03/21 20:42 Dose: 8 mg Documented by: Allergies Allergies Allergy/AdvReac Type Severity Reaction Status Date / Time metoclopramide [From Reglan] Allergy Muscle Verified 01/08/21 20:46 cramps haloperidol [From Haldol] AdvReac Severe Dystonia Verified 01/08/21 20:46 sucralfate [From Carafate] AdvReac Severe vomiting Verified 01/08/21 20:46 Assessment & Plan Assessment & Plan (1) PTSD (post-traumatic stress disorder): Status: Acute Code(s): F43.10 - Post-traumatic stress disorder, unspecified (2) Schizoaffective disorder, bipolar type: Status: Acute Code(s): F25.0 - Schizoaffective disorder, bipolar type Assessment and Plan: 25 yo female returns to after extensive medical evaluation of seizure activity. 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 Pt also with inability to swallow medications due to nausea, vomiting, abdominal pain. GI testing is negative thus far. Discussed with Delaney the next step in her treatment. Discussed possible conversion reactions secondary to PTSD which she agrees is a strong possiblity. Asked if she would consider referral to [place] if we were able and she declined. She is willing to trial a new out pt therapist (female only) and will do a 14 day Abilify po trial with IM Zofran with the plan to transition to Maintena. Plan: 1. Ensure tid with meals-vanilla only. 2. Ativan 1 mg IM prn seizure activity 3. Zofran 4 mg IM HS prior to Abilify dosing 4. Abilify 10 mg HS. Weekend Coverage: 01/24- Pt continues to have episodes of pseudoseizures in the evening, appears to be responding well to IM hydroxyzine 50 mg at bedtime. Will continue abilify PO trial with IM zofran. 01/25- Will discontinue hydroxyzine PO PRN, as pt prefers IM due to reported GI distress. Discussed with primary provider and will start abilify maintena 300 mg AM. Pt denies adverse effects on PO abilify, tolerating it well. Continues to have pseudoseizure in evening. Discussed with hospitalist, who recommended staff development nurse contact hospitalist, direct pt to bed, and continue to use hydroxyzine IM PRN or ativan IM PRN for relief. 01/26/21 Tentative Abilify Maintena IM 300 mg for 01/27/21. Dr. Christensen to consult with pt on 01/27 as well. 01/27/21 Hold Abilify PRITCHETT today s/p seizure. 01/28/21 Discontinue Abilify Maintena Remeron 7.5 mg HS 01/29/21 Klonopin 0.5 mg HS Continue Mirtazapine 01/30/21 Increase Zofran to 8 mg IM HS-pt request as she is having GI distress with new medications. Continue Klonopin/Mirtazapine trial 01/31 and 02/01/21: Ct Rx plan 02/02/21: Ct. current plan. Seizure activity with clearer precipitants Family meeting with pt 02/04 to discuss Abilify Maintena Trial Will provide added educational material in terms of how Abilify may assist pt in symptom mgt. 02/03/21 Seizure activity present Family meeting 02/04/21 Continue current med regime I spent 15 minutes with the patient and/or on the patient floor today, greater than?50% of which was spent counseling/coordinating care. Patient educated on: medication risk/benefits and therapeutic strategies Informed Consent: further education needed Reason for contiued inpatient stay Substantial Risk for: inability to function and rapid decompensation
[2021-02-04 09:15] VITALS: BP 112/63; PULSE 91; RESP 16; TEMP 36.4; O2SAT 97
[2021-02-04 18:00] VITALS: BP 115/64; PULSE 97; RESP 18; TEMP 37.2; O2SAT 100
--- NOTE | 2021-02-04 18:37 | HO.PSYCHPN ---
Subjective Subjective Date of Service: 02/04/21 Reason For Visit: Psychosis Subjective Notes: Conditional Voluntary Medical Problems Affecting Mental Status: No Interim History: Seizure activity still present. Met with pt, Hannah RUANO, parents to discuss discharge planning, medications. Abilify 10 mg po planned for 02/05 and with Maintena 300 mg IM scheduled for trial on 02/07. Pt, later in the evening asked to meet with tw-she has a cellulitis on her upper arm from injections-she was seen by the hospitalist and given Toradol for pain. Medication Compliance: Yes Side effects from medications: Yes (GI distress) Attending Groups: Yes Review of Systems Acute medical concerns: Yes Medical Review of Systems: unchanged Review of Systems Reports behavioral changes Psychiatric: Reports anxiety, Reports behavioral changes, Reports depression, Reports difficulty concentrating, Reports hopelessness, Reports irritability, Reports anhedonia, Reports mood swings and Reports paranoia Mental Status Exam Mental Status Exam Patient Appearance: Appropriate Patient Orientation: Person, Place, Time and Situation Level of Consciousness: Alert Patient Behavior: Guarded, Talkative, Anxious, Distractible, Good Eye Contact and Impulsive Mood Description: Anxious, Labile, Angry and Apprehensive Affect Description: Labile Patient Cognition Impaired: No Ability to Follow Directions: Good Speech Pattern: Spontaneous Speech Memory Description: Episodic Impaired Hallucinations: None Delusions: Paranoid Ideation Perceptual Disturbances: Depersonalization and Derealization Thought Process: Distracted and Rumination Thought Content: positive for Circumstantial Depressive Symptoms: Increased Anxiety, Diff. Making Decisions, Increased Irritability, Hopelessness, Unhappiness and Difficulty Concentrating Judgement: Fair Diagnostics Vital Signs (24Hr): Vital Signs - 24 hr 02/04/21 09:15 Temperature 97.6 F Pulse Rate 91 Respiratory Rate 16 Blood Pressure 112/63 Pulse Oximetry 97 Imaging Radiology Impressions: ITS Impressions Head CT 01/25/21 11:49 IMPRESSION: 1. There are no acute intracranial bleeds or territorial infarcts. The study partially redemonstrates the fullness in the suprasellar cistern, better shown on the prior MRI scan. 2. There are no acute osseous or soft tissue abnormalities. Medications Medications Current Medications Acetaminophen (Acetaminophen 325 Mg Tablet) 650 mg PO Q6H PRN PRN Reason: Headache/Pain Mild Scale (1-3) Al Hydroxide/Mg Hydroxide (Magnesium Hydrox/Alum Hydrox 30 Ml Oral.Susp) 30 ml PO Q6H PRN PRN Reason: Heartburn/Nausea Aripiprazole (Aripiprazole 10 Mg Tablet) 10 mg PO DAILY [facility] Stop: 02/07/21 09:00 Clonazepam (Clonazepam 0.5 Mg Tablet) 0.5 mg PO BEDTIME [facility] Last Admin: 02/03/21 21:04 Dose: 0.5 mg Documented by: Hydroxyzine HCl (Hydroxyzine Hcl 50 Mg/Ml Vial) 50 mg IM BEDTIME [facility] Last Admin: 02/03/21 20:42 Dose: 50 mg Documented by: Hydroxyzine HCl (Hydroxyzine Hcl 50 Mg/Ml Vial) 25 mg IM BID PRN PRN Reason: Anxiety Ibuprofen (Ibuprofen 400 Mg Tablet) 400 mg PO Q6H PRN PRN Reason: mild pain Lorazepam (Lorazepam 2 Mg/Ml Vial) 1 mg IM BID PRN PRN Reason: Seizure activity Magnesium Hydroxide (Milk Of Magnesia 30 Ml Oral.Susp) 30 ml PO DAILY PRN PRN Reason: Constipation Mirtazapine (Mirtazapine 7.5 Mg Tablet) 7.5 mg PO BEDTIME [facility] Last Admin: 02/03/21 21:04 Dose: 7.5 mg Documented by: Multi-Ingred Cream/Lotion/Oil/Oint (Mineral Oil/Petrolatum,White 106 Gm Tube) 1 appl TOPICAL TID [facility] Last Admin: 02/04/21 12:47 Dose: Not Given Documented by: Non-Formulary Medication (Abilify Maintena) 300 mg IM ONCE ONE Stop: 02/07/21 09:01 Ondansetron HCl (Ondansetron Hcl 4 Mg/2 Ml Vial) 4 mg IM DAILY PRN PRN Reason: nausea, vomiting Ondansetron HCl (Ondansetron Hcl 4 Mg/2 Ml Vial) 8 mg IM BEDTIME [facility] Last Admin: 02/03/21 20:42 Dose: 8 mg Documented by: Allergies Allergies Allergy/AdvReac Type Severity Reaction Status Date / Time metoclopramide [From Reglan] Allergy Muscle Verified 01/08/21 20:46 cramps haloperidol [From Haldol] AdvReac Severe Dystonia Verified 01/08/21 20:46 sucralfate [From Carafate] AdvReac Severe vomiting Verified 01/08/21 20:46 band-aids AdvReac Intermediate skin Uncoded 02/04/21 17:52 irritation Assessment & Plan Assessment & Plan (1) PTSD (post-traumatic stress disorder): Status: Acute Code(s): F43.10 - Post-traumatic stress disorder, unspecified (2) Schizoaffective disorder, bipolar type: Status: Acute Code(s): F25.0 - Schizoaffective disorder, bipolar type Assessment and Plan: 25 yo female returns to after extensive medical evaluation of seizure activity. 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 Pt also with inability to swallow medications due to nausea, vomiting, abdominal pain. GI testing is negative thus far. Discussed with Delaney the next step in her treatment. Discussed possible conversion reactions secondary to PTSD which she agrees is a strong possiblity. Asked if she would consider referral to [place] if we were able and she declined. She is willing to trial a new out pt therapist (female only) and will do a 14 day Abilify po trial with IM Zofran with the plan to transition to Maintena. Plan: 1. Ensure tid with meals-vanilla only. 2. Ativan 1 mg IM prn seizure activity 3. Zofran 4 mg IM HS prior to Abilify dosing 4. Abilify 10 mg HS. Weekend Coverage: 01/24- Pt continues to have episodes of pseudoseizures in the evening, appears to be responding well to IM hydroxyzine 50 mg at bedtime. Will continue abilify PO trial with IM zofran. 01/25- Will discontinue hydroxyzine PO PRN, as pt prefers IM due to reported GI distress. Discussed with primary provider and will start abilify maintena 300 mg AM. Pt denies adverse effects on PO abilify, tolerating it well. Continues to have pseudoseizure in evening. Discussed with hospitalist, who recommended staffing recruiter contact hospitalist, direct pt to bed, and continue to use hydroxyzine IM PRN or ativan IM PRN for relief. 01/26/21 Tentative Abilify Maintena IM 300 mg for 01/27/21. Dr. Christensen to consult with pt on 01/27 as well. 01/27/21 Hold Abilify PRITCHETT today s/p seizure. 01/28/21 Discontinue Abilify Maintena Remeron 7.5 mg HS 01/29/21 Klonopin 0.5 mg HS Continue Mirtazapine 01/30/21 Increase Zofran to 8 mg IM HS-pt request as she is having GI distress with new medications. Continue Klonopin/Mirtazapine trial 01/31 and 02/01/21: Ct Rx plan 02/02/21: Ct. current plan. Seizure activity with clearer precipitants Family meeting with pt 02/04 to discuss Abilify Maintena Trial Will provide added educational material in terms of how Abilify may assist pt in symptom mgt. 02/03/21 Seizure activity present Family meeting 02/04/21 Continue current med regime 02/04/21 Family meeting to discuss discharge planning. Pt beginning to discuss her traumatic experience with her brother to her parents. Parents to discuss what their next step is. Pt wants her brother to move from the family home. Tentative plan would be for pt to return to father's home as she cannot smoke cannabis in mother's partners home. Abilify 10 mg po 02/05 and 17 with IM Maintena on 02/07. I spent 60 minutes with the patient and/or on the patient floor today, greater than?50% of which was spent counseling/coordinating care. Patient educated on: medication risk/benefits Informed Consent: understands and further education needed Reason for contiued inpatient stay Substantial Risk for: inability to function and rapid decompensation
[2021-02-04 20:21] LABS: COVID-19 Test Negative (Negative); IDNOW Serial# 55D5AD1C
[2021-02-04] MEDS: ondansetron HCL 4 MG/2 ML VIAL 8 MG IM (22:11)
--- NOTE | 2021-02-04 22:19 | PM.EVENT ---
Event Note Date of Service: 02/04/21 Event Note: pt complaining of severe pain at site of medication injection in right deltoid muscle. examined, there is no erythema, some edema with tenderness. arms equally warm bilaterally. no evidence of cellulitis. pt unable to take po meds. will prescrive toradol IM for pain and cold compress. please avoid using right deltoid for injection This was communicated to pt Nurse, pt and also to BILINGUAL ACCOUNT MANAGER in charge of pt tonight
[2021-02-04] MEDS: hydrOXYzine HCL 50 MG/ML VIAL IM (22:24)
[2021-02-05] MEDS: ARIPiprazole 10 MG TABLET PO (09:03)
[2021-02-05 09:21] VITALS: BP 97/57; PULSE 84; RESP 16; TEMP 36.8; O2SAT 97
[2021-02-05] MEDS: Ketorolac Tromethamine 30 MG/ML VIAL 15 MG IM ×2 (11:14→20:40)
[2021-02-05] MEDS: Ondansetron ODT 4 MG TAB.RAPDIS TRANSLINGU (16:19)
[2021-02-05 17:22] VITALS: BP 123/71; PULSE 95; RESP 16; TEMP 36.9; O2SAT 100
[2021-02-05] MEDS: Mineral Oil/Petrolatum,White 106 GM Tube 1 APPL TOPICAL (20:56)
[2021-02-05] MEDS: Ondansetron ODT 8 MG TAB.RAPDIS TRANSLINGU (21:00)
[2021-02-05] MEDS: clonazePAM 0.5 MG TABLET PO (21:31)
[2021-02-05] MEDS: Mirtazapine 7.5 MG TABLET PO (21:31)
[2021-02-05] MEDS: hydrOXYzine HCL 25 MG TABLET PO (22:05)
[2021-02-06 06:00] VITALS: BP 123/75; PULSE 85; RESP 14; TEMP 37.1; O2SAT 100
[2021-02-06 09:05] LABS: COVID-19 Test Negative (Negative); IDNOW Serial# 9DD0AD1C
[2021-02-06] MEDS: Ketorolac Tromethamine 30 MG/ML VIAL 15 MG IM ×2 (09:26→20:10)
[2021-02-06] MEDS: Ondansetron ODT 4 MG TAB.RAPDIS TRANSLINGU (09:26)
[2021-02-06] MEDS: Mineral Oil/Petrolatum,White 106 GM Tube 1 APPL TOPICAL ×3 (09:59→23:33)
[2021-02-06] MEDS: ARIPiprazole 10 MG TABLET PO (09:59)
--- NOTE | 2021-02-06 15:24 | HO.PSYCHPN ---
Subjective Subjective Date of Service: 02/05/21 Reason For Visit: Psychosis Subjective Notes: Conditional Voluntary Interim History: Pt asked to meet to review medications. At this time she has decided to take as many of her meds as possible via mouth to offer healing at injection sites. We reviewed her entire regime and made changes, answered questions and explained rationales. Medication Compliance: Yes Side effects from medications: Yes (Pt has been using IM meds and has cellulitis from injection sites) Attending Groups: Yes Review of Systems Acute medical concerns: No Medical Review of Systems: unchanged Review of Systems Psychiatric: Reports anxiety, Reports depression, Reports difficulty concentrating, Reports hopelessness, Reports irritability and Reports paranoia Mental Status Exam Mental Status Exam Patient Appearance: Appropriate Patient Orientation: Person, Place, Time and Situation Level of Consciousness: Alert Patient Behavior: Talkative, Anxious, Distractible, Good Eye Contact and Impulsive Mood Description: Anxious, Labile, Angry and Apprehensive Affect Description: Labile Patient Cognition Impaired: No Ability to Follow Directions: Good Speech Pattern: Spontaneous Speech Memory Description: Episodic Impaired Hallucinations: None Delusions: Paranoid Ideation Perceptual Disturbances: Depersonalization and Derealization Thought Process: Distracted and Rumination Thought Content: positive for Circumstantial Depressive Symptoms: Increased Anxiety, Diff. Making Decisions, Increased Irritability, Hopelessness, Unhappiness and Difficulty Concentrating Judgement: Fair Diagnostics Vital Signs (24Hr): Vital Signs - 24 hr 02/05/21 17:22 02/06/21 06:00 Temperature 98.4 F 98.8 F Pulse Rate 95 85 Respiratory Rate 16 14 Blood Pressure 123/71 123/75 Pulse Oximetry 100 100 Labs Labs: Laboratory Results - last 48 hr 02/04/21 02/06/21 19:57 08:19 COVID-19 ([facility]) Negative Negative COVID-19 Clin Com See Note See Note Imaging Radiology Impressions: ITS Impressions Head CT 01/25/21 11:49 IMPRESSION: 1. There are no acute intracranial bleeds or territorial infarcts. The study partially redemonstrates the fullness in the suprasellar cistern, better shown on the prior MRI scan. 2. There are no acute osseous or soft tissue abnormalities. Medications Medications Current Medications Al Hydroxide/Mg Hydroxide (Magnesium Hydrox/Alum Hydrox 30 Ml Oral.Susp) 30 ml PO Q6H PRN PRN Reason: Heartburn/Nausea Aripiprazole (Aripiprazole 10 Mg Tablet) 10 mg PO DAILY [facility] Stop: 02/07/21 09:00 Last Admin: 02/06/21 09:59 Dose: 10 mg Documented by: Aripiprazole (Aripiprazole Er 300 Mg Suser.Syr) 300 mg IM ONCE ONE Stop: 02/07/21 09:01 Clonazepam (Clonazepam 0.5 Mg Tablet) 0.5 mg PO BEDTIME [facility] Last Admin: 02/05/21 21:31 Dose: 0.5 mg Documented by: Hydroxyzine HCl (Hydroxyzine Hcl 25 Mg Tablet) 25 mg PO Q6H PRN PRN Reason: Anxiety Last Admin: 02/05/21 22:05 Dose: 25 mg Documented by: Ketorolac Tromethamine (Ketorolac Tromethamine 30 Mg/Ml Vial) 15 mg IM BID PRN PRN Reason: cellulitis pain Last Admin: 02/06/21 09:26 Dose: 15 mg Documented by: Lorazepam (Lorazepam 2 Mg/Ml Vial) 1 mg IM BID PRN PRN Reason: Seizure activity Magnesium Hydroxide (Milk Of Magnesia 30 Ml Oral.Susp) 30 ml PO DAILY PRN PRN Reason: Constipation Mirtazapine (Mirtazapine 7.5 Mg Tablet) 7.5 mg PO BEDTIME [facility] Last Admin: 02/05/21 21:31 Dose: 7.5 mg Documented by: Multi-Ingred Cream/Lotion/Oil/Oint (Mineral Oil/Petrolatum,White 106 Gm Tube) 1 appl TOPICAL TID [facility] Last Admin: 02/06/21 14:36 Dose: 1 appl Documented by: Ondansetron HCl (Ondansetron Odt 8 Mg Tab.Rapdis) 8 mg TRANSLINGU BEDTIME [facility] Last Admin: 02/05/21 21:00 Dose: 8 mg Documented by: Ondansetron HCl (Ondansetron Odt 4 Mg Tab.Rapdis) 4 mg TRANSLINGU DAILY PRN PRN Reason: Nausea Last Admin: 02/06/21 09:26 Dose: 4 mg Documented by: Allergies Allergies Allergy/AdvReac Type Severity Reaction Status Date / Time metoclopramide [From Reglan] Allergy Muscle Verified 01/08/21 20:46 cramps haloperidol [From Haldol] AdvReac Severe Dystonia Verified 01/08/21 20:46 sucralfate [From Carafate] AdvReac Severe vomiting Verified 01/08/21 20:46 band-aids AdvReac Intermediate skin Uncoded 02/04/21 17:52 irritation Assessment & Plan Assessment & Plan (1) PTSD (post-traumatic stress disorder): Status: Acute Code(s): F43.10 - Post-traumatic stress disorder, unspecified (2) Schizoaffective disorder, bipolar type: Status: Acute Code(s): F25.0 - Schizoaffective disorder, bipolar type Assessment and Plan: 25 yo female returns to after extensive medical evaluation of seizure activity. 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 Pt also with inability to swallow medications due to nausea, vomiting, abdominal pain. GI testing is negative thus far. Discussed with Delaney the next step in her treatment. Discussed possible conversion reactions secondary to PTSD which she agrees is a strong possiblity. Asked if she would consider referral to [place] if we were able and she declined. She is willing to trial a new out pt therapist (female only) and will do a 14 day Abilify po trial with IM Zofran with the plan to transition to Maintena. Plan: 1. Ensure tid with meals-vanilla only. 2. Ativan 1 mg IM prn seizure activity 3. Zofran 4 mg IM HS prior to Abilify dosing 4. Abilify 10 mg HS. Weekend Coverage: 01/24- Pt continues to have episodes of pseudoseizures in the evening, appears to be responding well to IM hydroxyzine 50 mg at bedtime. Will continue abilify PO trial with IM zofran. 01/25- Will discontinue hydroxyzine PO PRN, as pt prefers IM due to reported GI distress. Discussed with primary provider and will start abilify maintena 300 mg AM. Pt denies adverse effects on PO abilify, tolerating it well. Continues to have pseudoseizure in evening. Discussed with hospitalist, who recommended bell staff contact hospitalist, direct pt to bed, and continue to use hydroxyzine IM PRN or ativan IM PRN for relief. 01/26/21 Tentative Abilify Maintena IM 300 mg for 01/27/21. Dr. Christensen to consult with pt on 01/27 as well. 01/27/21 Hold Abilify PRITCHETT today s/p seizure. 01/28/21 Discontinue Abilify Maintena Remeron 7.5 mg HS 01/29/21 Klonopin 0.5 mg HS Continue Mirtazapine 01/30/21 Increase Zofran to 8 mg IM HS-pt request as she is having GI distress with new medications. Continue Klonopin/Mirtazapine trial 01/31 and 02/01/21: Ct Rx plan 02/02/21: Ct. current plan. Seizure activity with clearer precipitants Family meeting with pt 02/04 to discuss Abilify Maintena Trial Will provide added educational material in terms of how Abilify may assist pt in symptom mgt. 02/03/21 Seizure activity present Family meeting 02/04/21 Continue current med regime 02/04/21 Family meeting to discuss discharge planning. Pt beginning to discuss her traumatic experience with her brother to her parents. Parents to discuss what their next step is. Pt wants her brother to move from the family home. Tentative plan would be for pt to return to father's home as she cannot smoke cannabis in mother's partners home. Abilify 10 mg po 02/05 and with IM Maintena on 02/07. 02/05/21 Pt took initiative today to review meds and request changes from IM to PO to assist in her arms healing. Continue current plan of care. I spent 35 minutes with the patient and/or on the patient floor today, greater than?50% of which was spent counseling/coordinating care. Patient educated on: medication risk/benefits Informed Consent: understands and further education needed Reason for contiued inpatient stay Substantial Risk for: inability to function and rapid decompensation
--- NOTE | 2021-02-06 17:11 | HO.PSYCHPN ---
Subjective Subjective Date of Service: 02/06/21 Reason For Visit: Psychosis Subjective Notes: Conditional Voluntary Interim History: Visable in milieu. No requests for tw today. Tolerating po changes. Zohra Peralta IM due 02/07. Medication Compliance: Yes Side effects from medications: No Attending Groups: Yes Review of Systems Acute medical concerns: No Medical Review of Systems: unchanged Review of Systems Psychiatric: Reports anxiety, Reports depression, Reports difficulty concentrating, Reports hopelessness, Reports irritability and Reports paranoia Mental Status Exam Mental Status Exam Patient Appearance: Appropriate Patient Orientation: Person, Place, Time and Situation Level of Consciousness: Alert Patient Behavior: Talkative, Anxious, Distractible, Good Eye Contact and Impulsive Mood Description: Anxious, Labile, Angry and Apprehensive Affect Description: Labile Patient Cognition Impaired: No Ability to Follow Directions: Good Speech Pattern: Spontaneous Speech Memory Description: Episodic Impaired Hallucinations: None Delusions: Paranoid Ideation Perceptual Disturbances: Depersonalization and Derealization Thought Process: Distracted and Rumination Thought Content: positive for Circumstantial Depressive Symptoms: Increased Anxiety, Diff. Making Decisions, Increased Irritability, Hopelessness, Unhappiness and Difficulty Concentrating Judgement: Fair Diagnostics Vital Signs (24Hr): Vital Signs - 24 hr 02/05/21 17:22 02/06/21 06:00 Temperature 98.4 F 98.8 F Pulse Rate 95 85 Respiratory Rate 16 14 Blood Pressure 123/71 123/75 Pulse Oximetry 100 100 Labs Labs: Laboratory Results - last 48 hr 02/04/21 02/06/21 19:57 08:19 COVID-19 ([facility]) Negative Negative COVID-19 Clin Com See Note See Note Imaging Radiology Impressions: ITS Impressions Head CT 01/25/21 11:49 IMPRESSION: 1. There are no acute intracranial bleeds or territorial infarcts. The study partially redemonstrates the fullness in the suprasellar cistern, better shown on the prior MRI scan. 2. There are no acute osseous or soft tissue abnormalities. Medications Medications Current Medications Al Hydroxide/Mg Hydroxide (Magnesium Hydrox/Alum Hydrox 30 Ml Oral.Susp) 30 ml PO Q6H PRN PRN Reason: Heartburn/Nausea Aripiprazole (Aripiprazole 10 Mg Tablet) 10 mg PO DAILY FROILAN Stop: 02/07/21 09:00 Last Admin: 02/06/21 09:59 Dose: 10 mg Documented by: Aripiprazole (Aripiprazole Er 300 Mg Suser.Syr) 300 mg IM ONCE ONE Stop: 02/07/21 09:01 Clonazepam (Clonazepam 0.5 Mg Tablet) 0.5 mg PO BEDTIME FROILAN Last Admin: 02/05/21 21:31 Dose: 0.5 mg Documented by: Hydroxyzine HCl (Hydroxyzine Hcl 25 Mg Tablet) 25 mg PO Q6H PRN PRN Reason: Anxiety Last Admin: 02/05/21 22:05 Dose: 25 mg Documented by: Ketorolac Tromethamine (Ketorolac Tromethamine 30 Mg/Ml Vial) 15 mg IM BID PRN PRN Reason: cellulitis pain Last Admin: 02/06/21 09:26 Dose: 15 mg Documented by: Lorazepam (Lorazepam 2 Mg/Ml Vial) 1 mg IM BID PRN PRN Reason: Seizure activity Magnesium Hydroxide (Milk Of Magnesia 30 Ml Oral.Susp) 30 ml PO DAILY PRN PRN Reason: Constipation Mirtazapine (Mirtazapine 7.5 Mg Tablet) 7.5 mg PO BEDTIME FROILAN Last Admin: 02/05/21 21:31 Dose: 7.5 mg Documented by: Multi-Ingred Cream/Lotion/Oil/Oint (Mineral Oil/Petrolatum,White 106 Gm Tube) 1 appl TOPICAL TID [facility] Last Admin: 02/06/21 14:36 Dose: 1 appl Documented by: Ondansetron HCl (Ondansetron Odt 8 Mg Tab.Rapdis) 8 mg TRANSLINGU BEDTIME FROILAN Last Admin: 02/05/21 21:00 Dose: 8 mg Documented by: Ondansetron HCl (Ondansetron Odt 4 Mg Tab.Rapdis) 4 mg TRANSLINGU DAILY PRN PRN Reason: Nausea Last Admin: 02/06/21 09:26 Dose: 4 mg Documented by: Allergies Allergies Allergy/AdvReac Type Severity Reaction Status Date / Time metoclopramide [From Reglan] Allergy Muscle Verified 01/08/21 20:46 cramps haloperidol [From Haldol] AdvReac Severe Dystonia Verified 01/08/21 20:46 sucralfate [From Carafate] AdvReac Severe vomiting Verified 01/08/21 20:46 band-aids AdvReac Intermediate skin Uncoded 02/04/21 17:52 irritation Assessment & Plan Assessment & Plan (1) PTSD (post-traumatic stress disorder): Status: Acute Code(s): F43.10 - Post-traumatic stress disorder, unspecified (2) Schizoaffective disorder, bipolar type: Status: Acute Code(s): F25.0 - Schizoaffective disorder, bipolar type Assessment and Plan: 25 yo female returns to after extensive medical evaluation of seizure activity. 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 Pt also with inability to swallow medications due to nausea, vomiting, abdominal pain. GI testing is negative thus far. Discussed with Delaney the next step in her treatment. Discussed possible conversion reactions secondary to PTSD which she agrees is a strong possiblity. Asked if she would consider referral to [place] if we were able and she declined. She is willing to trial a new out pt therapist (female only) and will do a 14 day Abilify po trial with IM Zofran with the plan to transition to Maintena. Plan: 1. Ensure tid with meals-vanilla only. 2. Ativan 1 mg IM prn seizure activity 3. Zofran 4 mg IM HS prior to Abilify dosing 4. Abilify 10 mg HS. Weekend Coverage: 01/24- Pt continues to have episodes of pseudoseizures in the evening, appears to be responding well to IM hydroxyzine 50 mg at bedtime. Will continue abilify PO trial with IM zofran. 01/25- Will discontinue hydroxyzine PO PRN, as pt prefers IM due to reported GI distress. Discussed with primary provider and will start abilify maintena 300 mg AM. Pt denies adverse effects on PO abilify, tolerating it well. Continues to have pseudoseizure in evening. Discussed with hospitalist, who recommended staff command and control officer contact hospitalist, direct pt to bed, and continue to use hydroxyzine IM PRN or ativan IM PRN for relief. 01/26/21 Tentative Abilify Maintena IM 300 mg for 01/27/21. Dr. Christensen to consult with pt on 01/27 as well. 01/27/21 Hold Abilify PRITCHETT today s/p seizure. 01/28/21 Discontinue Abilify Maintena Remeron 7.5 mg HS 01/29/21 Klonopin 0.5 mg HS Continue Mirtazapine 01/30/21 Increase Zofran to 8 mg IM HS-pt request as she is having GI distress with new medications. Continue Klonopin/Mirtazapine trial 01/31 and 02/01/21: Ct Rx plan 02/02/21: Ct. current plan. Seizure activity with clearer precipitants Family meeting with pt 02/04 to discuss Abilify Maintena Trial Will provide added educational material in terms of how Abilify may assist pt in symptom mgt. 02/03/21 Seizure activity present Family meeting 02/04/21 Continue current med regime 02/04/21 Family meeting to discuss discharge planning. Pt beginning to discuss her traumatic experience with her brother to her parents. Parents to discuss what their next step is. Pt wants her brother to move from the family home. Tentative plan would be for pt to return to father's home as she cannot smoke cannabis in mother's partners home. Abilify 10 mg po 02/05 and with IM Maintena on 02/07. 02/05/21 Pt took initiative today to review meds and request changes from IM to PO to assist in her arms healing. Continue current plan of care. 02/06/21 Continue current plan of care I spent 15 minutes with the patient and/or on the patient floor today, greater than?50% of which was spent counseling/coordinating care. Informed Consent: further education needed Reason for contiued inpatient stay Substantial Risk for: inability to function and rapid decompensation
[2021-02-06 20:05] VITALS: BP 109/58; PULSE 93; RESP 18; TEMP 36.9; O2SAT 100
[2021-02-06] MEDS: Ondansetron ODT 8 MG TAB.RAPDIS TRANSLINGU (20:10)
[2021-02-06] MEDS: clonazePAM 0.5 MG TABLET PO (20:26)
[2021-02-06] MEDS: Mirtazapine 7.5 MG TABLET PO (20:26)
[2021-02-06] MEDS: hydrOXYzine HCL 25 MG TABLET PO (23:35)
[2021-02-07] MEDS: Ketorolac Tromethamine 30 MG/ML VIAL 15 MG IM ×2 (09:38→20:52)
[2021-02-07] MEDS: ARIPIPRAZOLE 300 MG IM (09:39)
[2021-02-07] MEDS: Mineral Oil/Petrolatum,White 106 GM Tube 1 APPL TOPICAL ×3 (09:42→21:25)
[2021-02-07] MEDS: Ondansetron ODT 4 MG TAB.RAPDIS TRANSLINGU (11:47)
[2021-02-07] MEDS: hydrOXYzine HCL 25 MG TABLET PO ×2 (15:36→21:23)
--- NOTE | 2021-02-07 18:07 | HO.PSYCHPN ---
Subjective Subjective Date of Service: 02/07/21 Reason For Visit: Psychosis Interim History: Pt received Abilify Maintena 300 mg today. She has been visable on the unit-engaged, confrontive with team at times and at other times appropriately engaged. Medication Compliance: Yes Side effects from medications: No Attending Groups: Yes Review of Systems Acute medical concerns: No Medical Review of Systems: unchanged Review of Systems Psychiatric: Reports anxiety, Reports depression, Reports difficulty concentrating, Reports hopelessness, Reports irritability and Reports paranoia Mental Status Exam Mental Status Exam Patient Appearance: Appropriate Patient Orientation: Person, Place, Time and Situation Level of Consciousness: Alert Patient Behavior: Talkative, Anxious, Distractible, Good Eye Contact and Impulsive Mood Description: Anxious, Labile, Angry and Apprehensive Affect Description: Labile Patient Cognition Impaired: No Ability to Follow Directions: Good Speech Pattern: Spontaneous Speech Memory Description: Episodic Impaired Hallucinations: None Delusions: Paranoid Ideation Perceptual Disturbances: Depersonalization and Derealization Thought Process: Distracted and Rumination Thought Content: positive for Circumstantial Depressive Symptoms: Increased Anxiety, Diff. Making Decisions, Increased Irritability, Hopelessness, Unhappiness and Difficulty Concentrating Judgement: Fair Diagnostics Vital Signs (24Hr): Vital Signs - 24 hr 02/06/21 20:05 Temperature 98.5 F Pulse Rate 93 Respiratory Rate 18 Blood Pressure 109/58 L Pulse Oximetry 100 Labs Labs: Laboratory Results - last 48 hr 02/06/21 08:19 COVID-19 (SHANE) Negative COVID-19 Clin Com See Note Imaging Radiology Impressions: ITS Impressions Head CT 01/25/21 11:49 IMPRESSION: 1. There are no acute intracranial bleeds or territorial infarcts. The study partially redemonstrates the fullness in the suprasellar cistern, better shown on the prior MRI scan. 2. There are no acute osseous or soft tissue abnormalities. Medications Medications Current Medications Al Hydroxide/Mg Hydroxide (Magnesium Hydrox/Alum Hydrox 30 Ml Oral.Susp) 30 ml PO Q6H PRN PRN Reason: Heartburn/Nausea Clonazepam (Clonazepam 0.5 Mg Tablet) 0.5 mg PO BID FROILAN Hydroxyzine HCl (Hydroxyzine Hcl 25 Mg Tablet) 25 mg PO TID FROILAN Last Admin: 02/07/21 15:36 Dose: 25 mg Documented by: Ketorolac Tromethamine (Ketorolac Tromethamine 30 Mg/Ml Vial) 15 mg IM BID PRN PRN Reason: cellulitis pain Last Admin: 02/07/21 09:38 Dose: 15 mg Documented by: Lorazepam (Lorazepam 2 Mg/Ml Vial) 1 mg IM BID PRN PRN Reason: Seizure activity Magnesium Hydroxide (Milk Of Magnesia 30 Ml Oral.Susp) 30 ml PO DAILY PRN PRN Reason: Constipation Mirtazapine (Mirtazapine 7.5 Mg Tablet) 7.5 mg PO BEDTIME FROILAN Last Admin: 02/06/21 20:26 Dose: 7.5 mg Documented by: Multi-Ingred Cream/Lotion/Oil/Oint (Mineral Oil/Petrolatum,White 106 Gm Tube) 1 appl TOPICAL TID FROILAN Last Admin: 02/07/21 15:36 Dose: 1 appl Documented by: Ondansetron HCl (Ondansetron Odt 8 Mg Tab.Rapdis) 8 mg TRANSLINGU BEDTIME FROILAN Last Admin: 02/06/21 20:10 Dose: 8 mg Documented by: Ondansetron HCl (Ondansetron Odt 4 Mg Tab.Rapdis) 4 mg TRANSLINGU DAILY PRN PRN Reason: Nausea Last Admin: 02/07/21 11:47 Dose: 4 mg Documented by: Allergies Allergies Allergy/AdvReac Type Severity Reaction Status Date / Time metoclopramide [From Reglan] Allergy Muscle Verified 01/08/21 20:46 cramps haloperidol [From Haldol] AdvReac Severe Dystonia Verified 01/08/21 20:46 sucralfate [From Carafate] AdvReac Severe vomiting Verified 01/08/21 20:46 band-aids AdvReac Intermediate skin Uncoded 02/04/21 17:52 irritation Assessment & Plan Assessment & Plan (1) PTSD (post-traumatic stress disorder): Status: Acute Code(s): F43.10 - Post-traumatic stress disorder, unspecified (2) Schizoaffective disorder, bipolar type: Status: Acute Code(s): F25.0 - Schizoaffective disorder, bipolar type Assessment and Plan: 25 yo female returns to after extensive medical evaluation of seizure activity. 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 Pt also with inability to swallow medications due to nausea, vomiting, abdominal pain. GI testing is negative thus far. Discussed with Delaney the next step in her treatment. Discussed possible conversion reactions secondary to PTSD which she agrees is a strong possiblity. Asked if she would consider referral to [place] if we were able and she declined. She is willing to trial a new out pt therapist (female only) and will do a 14 day Abilify po trial with IM Zofran with the plan to transition to Maintena. Plan: 1. Ensure tid with meals-vanilla only. 2. Ativan 1 mg IM prn seizure activity 3. Zofran 4 mg IM HS prior to Abilify dosing 4. Abilify 10 mg HS. Weekend Coverage: 01/24- Pt continues to have episodes of pseudoseizures in the evening, appears to be responding well to IM hydroxyzine 50 mg at bedtime. Will continue abilify PO trial with IM zofran. 01/25- Will discontinue hydroxyzine PO PRN, as pt prefers IM due to reported GI distress. Discussed with primary provider and will start abilify maintena 300 mg AM. Pt denies adverse effects on PO abilify, tolerating it well. Continues to have pseudoseizure in evening. Discussed with hospitalist, who recommended director of medical staff services contact hospitalist, direct pt to bed, and continue to use hydroxyzine IM PRN or ativan IM PRN for relief. 01/26/21 Tentative Abilify Maintena IM 300 mg for 01/27/21. Dr. Christensen to consult with pt on 01/27 as well. 01/27/21 Hold Abilify PRITCHETT today s/p seizure. 01/28/21 Discontinue Abilify Maintena Remeron 7.5 mg HS 01/29/21 Klonopin 0.5 mg HS Continue Mirtazapine 01/30/21 Increase Zofran to 8 mg IM HS-pt request as she is having GI distress with new medications. Continue Klonopin/Mirtazapine trial 01/31 and 02/01/21: Ct Rx plan 02/02/21: Ct. current plan. Seizure activity with clearer precipitants Family meeting with pt 02/04 to discuss Abilify Maintena Trial Will provide added educational material in terms of how Abilify may assist pt in symptom mgt. 02/03/21 Seizure activity present Family meeting 02/04/21 Continue current med regime 02/04/21 Family meeting to discuss discharge planning. Pt beginning to discuss her traumatic experience with her brother to her parents. Parents to discuss what their next step is. Pt wants her brother to move from the family home. Tentative plan would be for pt to return to father's home as she cannot smoke cannabis in mother's partners home. Abilify 10 mg po 02/05 and with IM Maintena on 02/07. 02/05/21 Pt took initiative today to review meds and request changes from IM to PO to assist in her arms healing. Continue current plan of care. 02/06/21 Continue current plan of care 02/07/21 Abilify Maintena given Observe for adverse effects. I spent minutes with the patient and/or on the patient floor today, greater than?50% of which was spent counseling/coordinating care. Patient educated on: therapeutic strategies Informed Consent: understands and further education needed Reason for contiued inpatient stay Substantial Risk for: inability to function and rapid decompensation
[2021-02-07] MEDS: Ondansetron ODT 8 MG TAB.RAPDIS TRANSLINGU (20:45)
[2021-02-07] MEDS: Mirtazapine 7.5 MG TABLET PO (21:23)
[2021-02-07] MEDS: clonazePAM 0.5 MG TABLET PO (21:23)
[2021-02-07 21:38] VITALS: BP 130/75; PULSE 82; RESP 16; O2SAT 100
[2021-02-08] MEDS: hydrOXYzine HCL 25 MG TABLET PO ×3 (08:32→21:19)
[2021-02-08] MEDS: clonazePAM 0.5 MG TABLET PO ×2 (08:32→21:19)
[2021-02-08] MEDS: Mineral Oil/Petrolatum,White 106 GM Tube 1 APPL TOPICAL ×3 (08:51→21:16)
--- NOTE | 2021-02-08 15:44 | P.PNPSI_ITS ---
Subjective Subjective Date of Service: 02/08/21 Reason For Visit: Psychosis Interim History: Tolerating Maintena thus far without adverse effect. Discussed relationship with parents today along with feeling uncared for and unloved by family. Discussed not wanting to live, but having many positive things to live for. 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 Decrease in overall lability. Medication Compliance: Yes Side effects from medications: No Attending Groups: Yes Review of Systems Acute medical concerns: No Medical Review of Systems: unchanged Review of Systems Psychiatric: Reports anxiety, Reports depression, Reports difficulty concentrating, Reports hopelessness, Reports irritability and Reports paranoia Mental Status Exam Mental Status Exam Patient Appearance: Appropriate Patient Orientation: Person, Place, Time and Situation Level of Consciousness: Alert Patient Behavior: Talkative, Anxious, Distractible, Good Eye Contact and Impulsive Mood Description: Anxious, Labile, Angry and Apprehensive Affect Description: Labile Patient Cognition Impaired: No Ability to Follow Directions: Good Speech Pattern: Spontaneous Speech Memory Description: Episodic Impaired Hallucinations: None Delusions: Paranoid Ideation Perceptual Disturbances: Depersonalization and Derealization Thought Process: Distracted and Rumination Thought Content: positive for Circumstantial Depressive Symptoms: Increased Anxiety, Diff. Making Decisions, Increased Irritability, Hopelessness, Unhappiness and Difficulty Concentrating Judgement: Fair Diagnostics Vital Signs (24Hr): Vital Signs - 24 hr 02/07/21 21:38 Pulse Rate 82 Respiratory Rate 16 Blood Pressure 130/75 Pulse Oximetry 100 Imaging Radiology Impressions: ITS Impressions Head CT 01/25/21 11:49 IMPRESSION: 1. There are no acute intracranial bleeds or territorial infarcts. The study partially redemonstrates the fullness in the suprasellar cistern, better shown on the prior MRI scan. 2. There are no acute osseous or soft tissue abnormalities. Medications Medications Current Medications Al Hydroxide/Mg Hydroxide (Magnesium Hydrox/Alum Hydrox 30 Ml Oral.Susp) 30 ml PO Q6H PRN PRN Reason: Heartburn/Nausea Clonazepam (Clonazepam 0.5 Mg Tablet) 0.5 mg PO BID [facility] Last Admin: 02/08/21 08:32 Dose: 0.5 mg Documented by: Hydroxyzine HCl (Hydroxyzine Hcl 25 Mg Tablet) 25 mg PO TID [facility] Last Admin: 02/08/21 14:22 Dose: 25 mg Documented by: Ketorolac Tromethamine (Ketorolac Tromethamine 30 Mg/Ml Vial) 15 mg IM BID PRN PRN Reason: cellulitis pain Last Admin: 02/07/21 20:52 Dose: 15 mg Documented by: Lorazepam (Lorazepam 2 Mg/Ml Vial) 1 mg IM BID PRN PRN Reason: Seizure activity Magnesium Hydroxide (Milk Of Magnesia 30 Ml Oral.Susp) 30 ml PO DAILY PRN PRN Reason: Constipation Mirtazapine (Mirtazapine 7.5 Mg Tablet) 7.5 mg PO BEDTIME FROILAN Last Admin: 02/07/21 21:23 Dose: 7.5 mg Documented by: Multi-Ingred Cream/Lotion/Oil/Oint (Mineral Oil/Petrolatum,White 106 Gm Tube) 1 appl TOPICAL TID [facility] Last Admin: 02/08/21 14:23 Dose: 1 appl Documented by: Ondansetron HCl (Ondansetron Odt 8 Mg Tab.Rapdis) 8 mg TRANSLINGU BEDTIME FROILAN Last Admin: 02/07/21 20:45 Dose: 8 mg Documented by: Ondansetron HCl (Ondansetron Odt 4 Mg Tab.Rapdis) 4 mg TRANSLINGU DAILY PRN PRN Reason: Nausea Last Admin: 02/07/21 11:47 Dose: 4 mg Documented by: Allergies Allergies Allergy/AdvReac Type Severity Reaction Status Date / Time metoclopramide [From Reglan] Allergy Muscle Verified 01/08/21 20:46 cramps haloperidol [From Haldol] AdvReac Severe Dystonia Verified 01/08/21 20:46 sucralfate [From Carafate] AdvReac Severe vomiting Verified 01/08/21 20:46 band-aids AdvReac Intermediate skin Uncoded 02/04/21 17:52 irritation Assessment & Plan Assessment & Plan (1) PTSD (post-traumatic stress disorder): Status: Acute Code(s): F43.10 - Post-traumatic stress disorder, unspecified (2) Schizoaffective disorder, bipolar type: Status: Acute Code(s): F25.0 - Schizoaffective disorder, bipolar type Assessment and Plan: 25 yo female returns to after extensive medical evaluation of seizure activity. 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 Pt also with inability to swallow medications due to nausea, vomiting, abdominal pain. GI testing is negative thus far. Discussed with Delaney the next step in her treatment. Discussed possible c onversion reactions secondary to PTSD which she agrees is a strong possiblity. Asked if she would consider referral to [facility] if we were able and she declined. She is willing to trial a new out pt therapist (female only) and will do a 14 day Abilify po trial with IM Zofran with the plan to transition to Maintena. Plan: 1. Ensure tid with meals-vanilla only. 2. Ativan 1 mg IM prn seizure activity 3. Zofran 4 mg IM HS prior to Abilify dosing 4. Abilify 10 mg HS. Weekend Coverage: 01/24- Pt continues to have episodes of pseudoseizures in the evening, appears to be responding well to IM hydroxyzine 50 mg at bedtime. Will continue abilify PO trial with IM zofran. 01/25- Will discontinue hydroxyzine PO PRN, as pt prefers IM due to reported GI distress. Discussed with primary provider and will start abilify maintena 300 mg AM. Pt denies adverse effects on PO abilify, tolerating it well. Continues to have pseudoseizure in evening. Discussed with hospitalist, who recommended staff writer contact hospitalist, direct pt to bed, and continue to use hydroxyzine IM PRN or ativan IM PRN for relief. 01/26/21 Tentative Abilify Maintena IM 300 mg for 01/27/21. Dr. Christensen to consult with pt on 01/27 as well. 01/27/21 Hold Abilify PRITCHETT today s/p seizure. 01/28/21 Discontinue Abilify Maintena Remeron 7.5 mg HS 01/29/21 Klonopin 0.5 mg HS Continue Mirtazapine 01/30/21 Increase Zofran to 8 mg IM HS-pt request as she is having GI distress with new medications. Continue Klonopin/Mirtazapine trial 01/31 and 02/01/21: Ct Rx plan 02/02/21: Ct. current plan. Seizure activity with clearer precipitants Family meeting with pt 02/04 to discuss Abilify Maintena Trial Will provide added educational material in terms of how Abilify may assist pt in symptom mgt. 02/03/21 Seizure activity present Family meeting 02/04/21 Continue current med regime 02/04/21 Family meeting to discuss discharge planning. Pt beginning to discuss her traumatic experience with her brother to her parents. Parents to discuss what their next step is. Pt wants her brother to move from the family home. Tentative plan would be for pt to return to father's home as she cannot smoke cannabis in mother's partners home. Abilify 10 mg po 02/05 and with IM Maintena on 02/07. 02/05/21 Pt took initiative today to review meds and request changes from IM to PO to assist in her arms healing. Continue current plan of care. 02/06/21 Continue current plan of care 02/07/21 Abilify Maintena given Observe for adverse effects. 02/08/21 Continue current plan Pt considering a mood stabilizer for seizure mgt, headache mgt, mood-Will hold as Abilify is new. I spent minutes with the patient and/or on the patient floor today, greater than?50% of which was spent counseling/coordinating care. Patient educated on: medication risk/benefits, therapeutic strategies and medical condition Informed Consent: understands and does not understand Reason for contiued inpatient stay Substantial Risk for: harm to self, inability to function, rapid decompensation and med/psych decompensation
[2021-02-08 16:46] VITALS: BP 104/57; PULSE 88; RESP 18; TEMP 36.2; O2SAT 100
[2021-02-08] MEDS: Ondansetron ODT 8 MG TAB.RAPDIS TRANSLINGU (21:11)
[2021-02-08] MEDS: Ketorolac Tromethamine 30 MG/ML VIAL 15 MG IM (21:19)
[2021-02-08] MEDS: Mirtazapine 7.5 MG TABLET PO (21:19)
[2021-02-09 05:40] VITALS: BP 105/64; PULSE 93; RESP 14; TEMP 36.4; O2SAT 100
[2021-02-09] MEDS: hydrOXYzine HCL 25 MG TABLET PO ×3 (09:14→23:44)
[2021-02-09] MEDS: Mineral Oil/Petrolatum,White 106 GM Tube 1 APPL TOPICAL ×3 (09:15→23:46)
[2021-02-09] MEDS: clonazePAM 0.5 MG TABLET PO ×2 (09:15→23:43)
[2021-02-09] MEDS: Ondansetron ODT 4 MG TAB.RAPDIS TRANSLINGU (13:01)
[2021-02-09] MEDS: Topiramate 25 MG TABLET PO (13:04)
[2021-02-09 13:28] LABS: COVID-19 Test Negative (Negative); IDNOW Serial# 9DD0AD1C
--- NOTE | 2021-02-09 16:34 | P.PNPSI_ITS ---
Subjective Subjective Date of Service: 02/09/21 Reason For Visit: Psychosis Subjective Notes: Conditional Voluntary Interim History: Discussed Topiramate, Lamictal with pt. Discussed risks/benefits. Will trial Topiramate for assistance with mood, seizure activity, headache. Pt asked for information on pituitary adenoma dx. Given from Up To Date. Pt asks for consult/second opinion-thinking she may want surgery. She prefers [facility] to [facility] or [facility] OP consult. Medication Compliance: Yes Side effects from medications: No Attending Groups: Yes Review of Systems Acute medical concerns: No Medical Review of Systems: unchanged Review of Systems Reports behavioral changes Psychiatric: Reports anxiety, Reports behavioral changes, Reports hopelessness, Reports irritability, Reports anhedonia, Reports mood swings, Reports paranoia and Reports suicidal ideation (reports detention SI) Mental Status Exam Mental Status Exam Patient Appearance: Appropriate Patient Orientation: Person, Place, Time and Situation Level of Consciousness: Alert Patient Behavior: Talkative, Anxious, Distractible, Good Eye Contact and Impulsive Mood Description: Anxious, Labile, Angry and Apprehensive Affect Description: Labile Patient Cognition Impaired: No Ability to Follow Directions: Good Speech Pattern: Spontaneous Speech Memory Description: Episodic Impaired Hallucinations: None Delusions: Paranoid Ideation Perceptual Disturbances: Depersonalization and Derealization Thought Process: Distracted and Rumination Thought Content: positive for Circumstantial Depressive Symptoms: Increased Anxiety, Diff. Making Decisions, Increased Irritability, Hopelessness, Unhappiness and Difficulty Concentrating Judgement: Fair Diagnostics Vital Signs (24Hr): Vital Signs - 24 hr 02/08/21 16:46 02/09/21 05:40 Temperature 97.2 F 97.5 F Pulse Rate 88 93 Respiratory Rate 18 14 Blood Pressure 104/57 L 105/64 Pulse Oximetry 100 100 Labs Labs: Laboratory Results - last 48 hr 02/09/21 12:33 COVID-19 ([facility]) Negative COVID-19 Clin Com See Note Imaging Radiology Impressions: ITS Impressions Head CT 01/25/21 11:49 IMPRESSION: 1. There are no acute intracranial bleeds or territorial infarcts. The study partially redemonstrates the fullness in the suprasellar cistern, better shown on the prior MRI scan. 2. There are no acute osseous or soft tissue abnormalities. Medications Medications Current Medications Al Hydroxide/Mg Hydroxide (Magnesium Hydrox/Alum Hydrox 30 Ml Oral.Susp) 30 ml PO Q6H PRN PRN Reason: Heartburn/Nausea Clonazepam (Clonazepam 0.5 Mg Tablet) 0.5 mg PO BID [facility] Last Admin: 02/09/21 09:15 Dose: 0.5 mg Documented by: Hydroxyzine HCl (Hydroxyzine Hcl 25 Mg Tablet) 25 mg PO TID [facility] Last Admin: 02/09/21 15:13 Dose: 25 mg Documented by: Ketorolac Tromethamine (Ketorolac Tromethamine 30 Mg/Ml Vial) 15 mg IM BID PRN PRN Reason: cellulitis pain Last Admin: 02/08/21 21:19 Dose: 15 mg Documented by: Lorazepam (Lorazepam 2 Mg/Ml Vial) 1 mg IM BID PRN PRN Reason: Seizure activity Magnesium Hydroxide (Milk Of Magnesia 30 Ml Oral.Susp) 30 ml PO DAILY PRN PRN Reason: Constipation Mirtazapine (Mirtazapine 7.5 Mg Tablet) 7.5 mg PO BEDTIME [facility] Last Admin: 02/08/21 21:19 Dose: 7.5 mg Documented by: Multi-Ingred Cream/Lotion/Oil/Oint (Mineral Oil/Petrolatum,White 106 Gm Tube) 1 appl TOPICAL TID [facility] Last Admin: 02/09/21 15:05 Dose: 1 appl Documented by: Ondansetron HCl (Ondansetron Odt 8 Mg Tab.Rapdis) 8 mg TRANSLINGU BEDTIME [facility] Last Admin: 02/08/21 21:11 Dose: 8 mg Documented by: Ondansetron HCl (Ondansetron Odt 4 Mg Tab.Rapdis) 4 mg TRANSLINGU DAILY PRN PRN Reason: Nausea Last Admin: 02/09/21 13:01 Dose: 4 mg Documented by: Topiramate (Topiramate 25 Mg Tablet) 25 mg PO DAILY [facility] Last Admin: 02/09/21 13:04 Dose: 25 mg Documented by: Allergies Allergies Allergy/AdvReac Type Severity Reaction Status Date / Time metoclopramide [From Reglan] Allergy Muscle Verified 01/08/21 20:46 cramps haloperidol [From Haldol] AdvReac Severe Dystonia Verified 01/08/21 20:46 sucralfate [From Carafate] AdvReac Severe vomiting Verified 01/08/21 20:46 band-aids AdvReac Intermediate skin Uncoded 02/04/21 17:52 irritation Assessment & Plan Assessment & Plan (1) PTSD (post-traumatic stress disorder): Status: Acute Code(s): F43.10 - Post-traumatic stress disorder, unspecified (2) Schizoaffective disorder, bipolar type: Status: Acute Code(s): F25.0 - Schizoaffective disorder, bipolar type Assessment and Plan: 25 yo female returns to after extensive medical evaluation of seizure activity. 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 Pt also with inability to swallow medications due to nausea, vomiting, abdominal pain. GI testing is negative thus far. Discussed with Delaney the next step in her treatment. Discussed possible conversion reactions secondary to PTSD which she agrees is a strong possiblity. Asked if she would consider referral to [place] if we were able and she declined. She is willing to trial a new out pt therapist (female only) and will do a 14 day Abilify po trial with IM Zofran with the plan to transition to Maintena. Plan: 1. Ensure tid with meals-vanilla only. 2. Ativan 1 mg IM prn seizure activity 3. Zofran 4 mg IM HS prior to Abilify dosing 4. Abilify 10 mg HS. Weekend Coverage: 01/24- Pt continues to have episodes of pseudoseizures in the evening, appears to be responding well to IM hydroxyzine 50 mg at bedtime. Will continue abilify PO trial with IM zofran. 01/25- Will discontinue hydroxyzine PO PRN, as pt prefers IM due to reported GI distress. Discussed with primary provider and will start abilify maintena 300 mg AM. Pt denies adverse effects on PO abilify, tolerating it well. Continues to have pseudoseizure in evening. Discussed with hospitalist, who recommended staffing administrator contact hospitalist, direct pt to bed, and continue to use hydroxyzine IM PRN or ativan IM PRN for relief. 01/26/21 Tentative Abilify Maintena IM 300 mg for 01/27/21. Dr. Christensen to consult with pt on 01/27 as well. 01/27/21 Hold Abilify PRITCHETT today s/p seizure. 01/28/21 Discontinue Abilify Maintena Remeron 7.5 mg HS 01/29/21 Klonopin 0.5 mg HS Continue Mirtazapine 01/30/21 Increase Zofran to 8 mg IM HS-pt request as she is having GI distress with new medications. Continue Klonopin/Mirtazapine trial 01/31 and 02/01/21: Ct Rx plan 02/02/21: Ct. current plan. Seizure activity with clearer precipitants Family meeting with pt 02/04 to discuss Abilify Maintena Trial Will provide added educational material in terms of how Abilify may assist pt in symptom mgt. 02/03/21 Seizure activity present Family meeting 02/04/21 Continue current med regime 02/04/21 Family meeting to discuss discharge planning. Pt beginning to discuss her traumatic experience with her brother to her parents. Parents to discuss what their next step is. Pt wants her brother to move from the family home. Tentative plan would be for pt to return to father's home as she cannot smoke cannabis in mother's partners home. Abilify 10 mg po 02/05 and with IM Maintena on 02/07. 02/05/21 Pt took initiative today to review meds and request changes from IM to PO to assist in her arms healing. Continue current plan of care. 02/06/21 Continue current plan of care 02/07/21 Abilify Maintena given Observe for adverse effects. 02/08/21 Continue current plan Pt considering a mood stabilizer for seizure mgt, headache mgt, mood-Will hold as Abilify is new. 02/09/21: Topiramate 25 mg daily Pt asks for second opinion regarding pituitary tumor Discharge planning. I spent minutes with the patient and/or on the patient floor today, greater than?50% of which was spent counseling/coordinating care. Reason for contiued inpatient stay Substantial Risk for: inability to function and rapid decompensation
[2021-02-09 18:00] VITALS: BP 118/69; PULSE 94; TEMP 36.3; O2SAT 100
[2021-02-09] MEDS: Ondansetron ODT 8 MG TAB.RAPDIS TRANSLINGU (22:27)
[2021-02-09] MEDS: Mirtazapine 7.5 MG TABLET PO (23:44)
[2021-02-10] MEDS: hydrOXYzine HCL 25 MG TABLET PO ×3 (09:20→21:22)
[2021-02-10] MEDS: clonazePAM 0.5 MG TABLET PO ×2 (09:20→21:22)
[2021-02-10] MEDS: Mineral Oil/Petrolatum,White 106 GM Tube 1 APPL TOPICAL ×2 (09:20→16:00)
[2021-02-10] MEDS: Topiramate 25 MG TABLET PO (09:20)
[2021-02-10] MEDS: Ondansetron ODT 4 MG TAB.RAPDIS TRANSLINGU (09:29)
[2021-02-10 18:00] VITALS: BP 118/77; PULSE 111; RESP 18; TEMP 36.9; O2SAT 98
--- NOTE | 2021-02-10 18:15 | P.PNPSI_ITS ---
Subjective Subjective Date of Service: 02/10/21 Reason For Visit: Psychosis Subjective Notes: Conditional Voluntary Interim History: Pt requested a second opinion regarding pituitary adenoma-appt scheduled with [facility] for May 06, 2021 2:15pm [address] Discussed feeling triggered by a peer and by one staff member. Discussed symptom mgt/trigger mgt and encouraged to inform the staff when this occurs so they may assist her in grounding re-enforcement. Medication Compliance: Yes Side effects from medications: No Attending Groups: Yes Review of Systems Acute medical concerns: No Chronic headaches Medical Review of Systems: unchanged Review of Systems Reports behavioral changes Psychiatric: Reports anxiety, Reports behavioral changes, Reports hopelessness, Reports irritability, Reports anhedonia, Reports mood swings, Reports paranoia and Reports suicidal ideation (reports [facility] SI) Mental Status Exam Mental Status Exam Patient Appearance: Appropriate Patient Orientation: Person, Place, Time and Situation Level of Consciousness: Alert Patient Behavior: Talkative, Anxious, Distractible, Good Eye Contact and Impulsive Mood Description: Anxious, Labile, Angry and Apprehensive Affect Description: Labile Patient Cognition Impaired: No Ability to Follow Directions: Good Speech Pattern: Spontaneous Speech Memory Description: Episodic Impaired Hallucinations: None Delusions: Paranoid Ideation Perceptual Disturbances: Depersonalization and Derealization Thought Process: Distracted and Rumination Thought Content: positive for Circumstantial Depressive Symptoms: Increased Anxiety, Diff. Making Decisions, Increased Irritability, Hopelessness, Unhappiness and Difficulty Concentrating Judgement: Fair Diagnostics Labs Labs: Laboratory Results - last 48 hr 02/09/21 12:33 COVID-19 ([facility]) Negative COVID-19 Clin Com See Note Imaging Radiology Impressions: ITS Impressions Head CT 01/25/21 11:49 IMPRESSION: 1. There are no acute intracranial bleeds or territorial infarcts. The study partially redemonstrates the fullness in the suprasellar cistern, better shown on the prior MRI scan. 2. There are no acute osseous or soft tissue abnormalities. Medications Medications Current Medications Al Hydroxide/Mg Hydroxide (Magnesium Hydrox/Alum Hydrox 30 Ml Oral.Susp) 30 ml PO Q6H PRN PRN Reason: Heartburn/Nausea Clonazepam (Clonazepam 0.5 Mg Tablet) 0.5 mg PO BID [facility] Last Admin: 02/10/21 09:20 Dose: 0.5 mg Documented by: Hydroxyzine HCl (Hydroxyzine Hcl 25 Mg Tablet) 25 mg PO TID [facility] Last Admin: 02/10/21 16:00 Dose: 25 mg Documented by: Ketorolac Tromethamine (Ketorolac Tromethamine 30 Mg/Ml Vial) 15 mg IM BID PRN PRN Reason: cellulitis pain Last Admin: 02/08/21 21:19 Dose: 15 mg Documented by: Lorazepam (Lorazepam 2 Mg/Ml Vial) 1 mg IM BID PRN PRN Reason: Seizure activity Magnesium Hydroxide (Milk Of Magnesia 30 Ml Oral.Susp) 30 ml PO DAILY PRN PRN Reason: Constipation Mirtazapine (Mirtazapine 7.5 Mg Tablet) 7.5 mg PO BEDTIME [facility] Last Admin: 02/09/21 23:44 Dose: 7.5 mg Documented by: Multi-Ingred Cream/Lotion/Oil/Oint (Mineral Oil/Petrolatum,White 106 Gm Tube) 1 appl TOPICAL TID [facility] Last Admin: 02/10/21 16:00 Dose: 1 appl Documented by: Ondansetron HCl (Ondansetron Odt 8 Mg Tab.Rapdis) 8 mg TRANSLINGU BEDTIME [facility] Last Admin: 02/09/21 22:27 Dose: 8 mg Documented by: Ondansetron HCl (Ondansetron Odt 4 Mg Tab.Rapdis) 4 mg TRANSLINGU DAILY PRN PRN Reason: Nausea Last Admin: 02/10/21 09:29 Dose: 4 mg Documented by: Topiramate (Topiramate 25 Mg Tablet) 25 mg PO DAILY [facility] Last Admin: 02/10/21 09:20 Dose: 25 mg Documented by: Allergies Allergies Allergy/AdvReac Type Severity Reaction Status Date / Time metoclopramide [From Reglan] Allergy Muscle Verified 01/08/21 20:46 cramps haloperidol [From Haldol] AdvReac Severe Dystonia Verified 01/08/21 20:46 sucralfate [From Carafate] AdvReac Severe vomiting Verified 01/08/21 20:46 band-aids AdvReac Intermediate skin Uncoded 02/04/21 17:52 irritation Assessment & Plan Assessment & Plan (1) PTSD (post-traumatic stress disorder): Status: Acute Code(s): F43.10 - Post-traumatic stress disorder, unspecified (2) Schizoaffective disorder, bipolar type: Status: Acute Code(s): F25.0 - Schizoaffective disorder, bipolar type Assessment and Plan: 25 yo female returns to after extensive medical evaluation of seizure activity. 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 Pt also with inability to swallow medications due to nausea, vomiting, abdominal pain. GI testing is negative thus far. Discussed with Delaney the next step in her treatment. Discussed possible conversion reactions secondary to PTSD which she agrees is a strong possiblity. Asked if she would consider referral to [place] if we were able and she declined. She is willing to trial a new out pt therapist (female only) and will do a 14 d ay Abilify po trial with IM Zofran with the plan to transition to Maintena. Plan: 1. Ensure tid with meals-vanilla only. 2. Ativan 1 mg IM prn seizure activity 3. Zofran 4 mg IM HS prior to Abilify dosing 4. Abilify 10 mg HS. Weekend Coverage: 01/24- Pt continues to have episodes of pseudoseizures in the evening, appears to be responding well to IM hydroxyzine 50 mg at bedtime. Will continue abilify PO trial with IM zofran. 01/25- Will discontinue hydroxyzine PO PRN, as pt prefers IM due to reported GI distress. Discussed with primary provider and will start abilify maintena 300 mg AM. Pt denies adverse effects on PO abilify, tolerating it well. Continues to have pseudoseizure in evening. Discussed with hospitalist, who recommended icu staff nurse contact hospitalist, direct pt to bed, and continue to use hydroxyzine IM PRN or ativan IM PRN for relief. 01/26/21 Tentative Abilify Maintena IM 300 mg for 01/27/21. Dr. Christensen to consult with pt on 01/27 as well. 01/27/21 Hold Abilify PRITCHETT today s/p seizure. 01/28/21 Discontinue Abilify Maintena Remeron 7.5 mg HS 01/29/21 Klonopin 0.5 mg HS Continue Mirtazapine 01/30/21 Increase Zofran to 8 mg IM HS-pt request as she is having GI distress with new medications. Continue Klonopin/Mirtazapine trial 01/31 and 02/01/21: Ct Rx plan 02/02/21: Ct. current plan. Seizure activity with clearer precipitants Family meeting with pt 02/04 to discuss Abilify Maintena Trial Will provide added educational material in terms of how Abilify may assist pt in symptom mgt. 02/03/21 Seizure activity present Family meeting 02/04/21 Continue current med regime 02/04/21 Family meeting to discuss discharge planning. Pt beginning to discuss her traumatic experience with her brother to her parents. Parents to discuss what their next step is. Pt wants her brother to move from the family home. Tentative plan would be for pt to return to father's home as she cannot smoke cannabis in mother's partners home. Abilify 10 mg po 02/05 and with IM Maintena on 02/07. 02/05/21 Pt took initiative today to review meds and request changes from IM to PO to assist in her arms healing. Continue current plan of care. 02/06/21 Continue current plan of care 02/07/21 Abilify Maintena given Observe for adverse effects. 02/08/21 Continue current plan Pt considering a mood stabilizer for seizure mgt, headache mgt, mood-Will hold as Abilify is new. 02/09/21: Topiramate 25 mg daily Pt asks for second opinion regarding pituitary tumor Discharge planning. 02/10/21 Continue current plan. I spent minutes with the patient and/or on the patient floor today, greater than?50% of which was spent counseling/coordinating care. Patient educated on: therapeutic strategies Informed Consent: understands Reason for contiued inpatient stay Substantial Risk for: harm to self, harm to others, inability to function, rapid decompensation and med/psych decompensation
[2021-02-10] MEDS: Ondansetron ODT 8 MG TAB.RAPDIS TRANSLINGU (18:55)
[2021-02-10] MEDS: LORazepam 2 MG/ML VIAL 1 MG IM (20:45)
[2021-02-10] MEDS: Mirtazapine 7.5 MG TABLET PO (21:21)
--- NOTE | 2021-02-10 21:25 | PC.NURSE ---
Patient was in group room C with other patients and a patient observer. The group was singing and laughing. At 2039 patient began exhibiting seizure type activity. This scientific writer and another RN transported patient to her room in a wheelchair. She was able to assist staff with her transfer from the wheelchair to the bed. Vital signs were obtained and read: BP 104/58, HR 96, O2 sats on room air 98% and temporal scan temperature 97.5F. Staff stayed with patient, who was place in the rescue position on her left side. Eyes were noted to be rolled back, breathing without any distress, some rhythmic movements noted to upper body. This scientific writer gave patient Ativan 1 mg IM in the right gluteus lawanda and remained with the patient. At 2109 patient opened her eyes and said she needed to go pee . This scientific writer observed patient as she got up from the side of her bed. Patient denied any dizziness. Patient gait steady as she walked to the bathroom to void. At this time, patient in NAD.
[2021-02-11] MEDS: Mineral Oil/Petrolatum,White 106 GM Tube 1 APPL TOPICAL ×2 (08:58→19:42)
[2021-02-11] MEDS: clonazePAM 0.5 MG TABLET PO ×2 (08:58→19:27)
[2021-02-11] MEDS: hydrOXYzine HCL 25 MG TABLET PO ×3 (08:58→19:27)
[2021-02-11] MEDS: Topiramate 25 MG TABLET PO (08:58)
--- NOTE | 2021-02-11 17:37 | HO.PSYCHPN ---
Subjective Subjective Date of Service: 02/11/21 Reason For Visit: Psychosis Subjective Notes: Conditional Voluntary Healthcare Proxy: No Guardianship: No Medical Problems Affecting Mental Status: No Interim History: TW did not meet individually with pt today-she was not available at 1700 and was engaged in another activity. She is visable on the unit, sad appearing but well engaged with peers.. Received a voice mail from pt's mother, who is not approving of discharge and who is confrontive on the following issues... 1. Medications-She believes Abilify was given incorrectly-400 mg is loading dose, pt had 300 mg. Pt is to have PO for 14-21 days after IM and subtherapeutic dosing will set her up to fail in respite. She reports she has read the literature and checked with Dr. Pena and other MD experts, wondering if tw had checked with MD prior to dosing. Discussed the decision making process, levels of consultation received and rationale for dosing at 300 mg initially-seizure activity and absence of overt sx along with pt's refusal to utilize PO after the injection-making a longer time for efficacy. 2. Decision to discharge pt before improvement setting her up to fail. Mother is concerned and sad. Reviewed progress pt has made. Mother will deliver Yu gifts on 02/13 but is grieving that she cannot be with pt for holiday as it will not be the same. Discussed this as a difficult year, however, pt does seem to be making some progress in treatment. Medication Compliance: Yes Side effects from medications: No Attending Groups: Yes Review of Systems Acute medical concerns: No Medical Review of Systems: unchanged Review of Systems Reports behavioral changes Psychiatric: Reports anxiety, Reports behavioral changes, Reports depression, Reports hopelessness, Reports irritability, Reports anhedonia, Reports mood swings and Reports suicidal ideation Mental Status Exam Mental Status Exam Patient Appearance: Appropriate Patient Orientation: Person, Place, Time and Situation Level of Consciousness: Alert Patient Behavior: Talkative, Anxious and Good Eye Contact Mood Description: Anxious, Labile and Apprehensive Affect Description: Labile Patient Cognition Impaired: No Ability to Follow Directions: Good Speech Pattern: Spontaneous Speech Memory Description: Episodic Impaired Hallucinations: None Delusions: Paranoid Ideation Perceptual Disturbances: Depersonalization and Derealization Thought Process: Distracted and Rumination Thought Content: positive for Circumstantial Depressive Symptoms: Increased Anxiety, Diff. Making Decisions, Increased Irritability, Hopelessness, Unhappiness and Difficulty Concentrating Judgement: Fair Diagnostics Vital Signs (24Hr): Vital Signs - 24 hr 02/10/21 18:00 Temperature 98.4 F Pulse Rate 111 H Respiratory Rate 18 Blood Pressure 118/77 Pulse Oximetry 98 Imaging Radiology Impressions: ITS Impressions Head CT 01/25/21 11:49 IMPRESSION: 1. There are no acute intracranial bleeds or territorial infarcts. The study partially redemonstrates the fullness in the suprasellar cistern, better shown on the prior MRI scan. 2. There are no acute osseous or soft tissue abnormalities. Medications Medications Current Medications Al Hydroxide/Mg Hydroxide (Magnesium Hydrox/Alum Hydrox 30 Ml Oral.Susp) 30 ml PO Q6H PRN PRN Reason: Heartburn/Nausea Clonazepam (Clonazepam 0.5 Mg Tablet) 0.5 mg PO BID [facility] Last Admin: 02/11/21 08:58 Dose: 0.5 mg Documented by: Hydroxyzine HCl (Hydroxyzine Hcl 25 Mg Tablet) 25 mg PO TID [facility] Last Admin: 02/11/21 15:22 Dose: 25 mg Documented by: Ketorolac Tromethamine (Ketorolac Tromethamine 30 Mg/Ml Vial) 15 mg IM BID PRN PRN Reason: cellulitis pain Last Admin: 02/08/21 21:19 Dose: 15 mg Documented by: Lorazepam (Lorazepam 2 Mg/Ml Vial) 1 mg IM BID PRN PRN Reason: Seizure activity Last Admin: 02/10/21 20:45 Dose: 1 mg Documented by: Magnesium Hydroxide (Milk Of Magnesia 30 Ml Oral.Susp) 30 ml PO DAILY PRN PRN Reason: Constipation Mirtazapine (Mirtazapine 7.5 Mg Tablet) 7.5 mg PO BEDTIME [facility] Last Admin: 02/10/21 21:21 Dose: 7.5 mg Documented by: Multi-Ingred Cream/Lotion/Oil/Oint (Mineral Oil/Petrolatum,White 106 Gm Tube) 1 appl TOPICAL TID [facility] Last Admin: 02/11/21 16:00 Dose: Not Given Documented by: Ondansetron HCl (Ondansetron Odt 8 Mg Tab.Rapdis) 8 mg TRANSLINGU BEDTIME [facility] Last Admin: 02/10/21 18:55 Dose: 8 mg Documented by: Ondansetron HCl (Ondansetron Odt 4 Mg Tab.Rapdis) 4 mg TRANSLINGU DAILY PRN PRN Reason: Nausea Last Admin: 02/10/21 09:29 Dose: 4 mg Documented by: Topiramate (Topiramate 25 Mg Tablet) 25 mg PO DAILY [facility] Last Admin: 02/11/21 08:58 Dose: 25 mg Documented by: Allergies Allergies Allergy/AdvReac Type Severity Reaction Status Date / Time metoclopramide [From Reglan] Allergy Muscle Verified 01/08/21 20:46 cramps haloperidol [From Haldol] AdvReac Severe Dystonia Verified 01/08/21 20:46 sucralfate [From Carafate] AdvReac Severe vomiting Verified 01/08/21 20:46 band-aids AdvReac Intermediate skin Uncoded 02/04/21 17:52 irritation Assessment & Plan Assessment & Plan (1) PTSD (post-traumatic stress disorder): Status: Acute Code(s): F43.10 - Post-traumatic stress disorder, unspecified (2) Schizoaffective disorder, bipolar type: Status: Acute Code(s): F25.0 - Schizoaffective disorder, bipolar type Assessment and Plan: 25 yo female returns to after extensive medical evaluation of seizure activity. 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 Pt also with inability to swallow medications due to nausea, vomiting, abdominal pain. GI testing is negative thus far. Discussed with Delaney the next step in her treatment. Discussed possible conversion reactions secondary to PTSD which she agrees is a strong possiblity. Asked if she would consider referral to [place] if we were able and she declined. She is willing to trial a new out pt therapist (female only) and will do a 14 day Abilify po trial with IM Zofran with the plan to transition to [facility]. Plan: 1. Ensure tid with meals-vanilla only. 2. Ativan 1 mg IM prn seizure activity 3. Zofran 4 mg IM HS prior to Abilify dosing 4. Abilify 10 mg HS. Weekend Coverage: 01/24- Pt continues to have episodes of pseudoseizures in the evening, appears to be responding well to IM hydroxyzine 50 mg at bedtime. Will continue abilify PO trial with IM zofran. 01/25- Will discontinue hydroxyzine PO PRN, as pt prefers IM due to reported GI distress. Discussed with primary provider and will start abilify maintena 300 mg AM. Pt denies adverse effects on PO abilify, tolerating it well. Continues to have pseudoseizure in evening. Discussed with hospitalist, who recommended waitstaff contact hospitalist, direct pt to bed, and continue to use hydroxyzine IM PRN or ativan IM PRN for relief. 01/26/21 Tentative Abilify Maintena IM 300 mg for 01/27/21. Dr. Christensen to consult with pt on 01/27 as well. 01/27/21 Hold Abilify PRITCHETT today s/p seizure. 01/28/21 Discontinue Abilify Maintena Remeron 7.5 mg HS 01/29/21 Klonopin 0.5 mg HS Continue Mirtazapine 01/30/21 Increase Zofran to 8 mg IM HS-pt request as she is having GI distress with new medications. Continue Klonopin/Mirtazapine trial 01/31 and 02/01/21: Ct Rx plan 02/02/21: Ct. current plan. Seizure activity with clearer precipitants Family meeting with pt 02/04 to discuss Abilify Maintena Trial Will provide added educational material in terms of how Abilify may assist pt in symptom mgt. 02/03/21 Seizure activity present Family meeting 02/04/21 Continue current med regime 02/04/21 Family meeting to discuss discharge planning. Pt beginning to discuss her traumatic experience with her brother to her parents. Parents to discuss what their next step is. Pt wants her brother to move from the family home. Tentative plan would be for pt to return to father's home as she cannot smoke cannabis in mother's partners home. Abilify 10 mg po 02/05 and with IM Maintena on 02/07. 02/05/21 Pt took initiative today to review meds and request changes from IM to PO to assist in her arms healing. Continue current plan of care. 02/06/21 Continue current plan of care 02/07/21 Abilify Maintena given Observe for adverse effects. 02/08/21 Continue current plan Pt considering a mood stabilizer for seizure mgt, headache mgt, mood-Will hold as Abilify is new. 02/09/21: Topiramate 25 mg daily Pt asks for second opinion regarding pituitary tumor Discharge planning. 02/10/21 Continue current plan. 02/11/21 No changes today in medications. Continue support, education, modulation work I spent minutes with the patient and/or on the patient floor today, greater than?50% of which was spent counseling/coordinating care. Informed Consent: further education needed Reason for contiued inpatient stay Substantial Risk for: harm to self, harm to others, inability to function and rapid decompensation
[2021-02-11 17:56] VITALS: BP 122/62; PULSE 99; RESP 18; TEMP 36.9; O2SAT 100
[2021-02-11] MEDS: Ondansetron ODT 8 MG TAB.RAPDIS TRANSLINGU (19:26)
[2021-02-11] MEDS: Mirtazapine 7.5 MG TABLET PO (19:27)
[2021-02-11] MEDS: LORazepam 2 MG/ML VIAL 1 MG IM (22:11)
--- NOTE | 2021-02-11 23:55 | PC.NURSE ---
Pt brought staff a rock one inch in diameter, a pen, and a pencil. Pt reported to staff that pt's roommate had discussed using the items as weapons.
--- NOTE | 2021-02-12 04:15 | PC.NURSE ---
Early in the evening approximately 19:15 - 19:30pm on 02/11/21 Other patients/peer notify this public relations writer that patient is trying to fight someone in the kitchen. This patient is noted to be verbally antagonizing a new male patient in the kitchen. Patient is redirected to please stop, the behavior and take some space by this public relations writer. The patient becomes verbally aggressive and using foul language with this public relations writer stepping towards them stating You don't even know what's happening. etc. Patient is non-redirectable and disruptive to other patients in the vicinity at this time. Both patient are instructed to take space in their rooms for 15 minutes. This patient initially refuses, becoming verbally belligerent with this public relations writer, she is again instructed to return to her room for some space. The patient slowly returns to her room standing in the door way, making verbal insults toward this public relations writer. Later on in the evening this patient joins another female patient on the unit in staff bashing this public relations writer for approximately an hour. The behavior increases intensity and volume till other patients make complaints. Limits are set with both patients who do not respond well to limit setting. Patient is noted to have become ruder to staff and other patients, less redirectable, and more disruptive to the milieu in recent days.
[2021-02-12] MEDS: Mineral Oil/Petrolatum,White 106 GM Tube 1 APPL TOPICAL ×2 (09:08→20:12)
[2021-02-12] MEDS: hydrOXYzine HCL 25 MG TABLET PO ×2 (09:08→16:40)
[2021-02-12] MEDS: Topiramate 25 MG TABLET PO (09:08)
[2021-02-12] MEDS: clonazePAM 0.5 MG TABLET PO ×2 (09:08→19:59)
--- NOTE | 2021-02-12 13:19 | P.PNPSI_ITS ---
Subjective Subjective Date of Service: 02/12/21 Reason For Visit: Psychosis Interim History: Patient seen and discussed with team. Patient evaluated this morning and upon interview she reports feeling worse. Pt reports intentional restricting, I havent eaten all day. I dont want to eat. Says her stomach always hurts, but also says this is due to staff talking to her about behaviors and she feels she needs to punish herself. Had 2 ensures today. She disclosed incident of SIB, superficial cutting with L arm using phillip. Also reports feeling triggered by a peer on the milieu who has been head banging, as she says she used to do it all the time. Pt currently denies SI/SIB and says she feels safe. Medication Compliance: Yes Side effects from medications: Yes Attending Groups: Yes Review of Systems Acute medical concerns: No Medical Review of Systems: unchanged Mental Status Exam Mental Status Exam Narrative: Patient Appearance:?Appropriate Patient Orientation:?Person, Place, Time and Situation Level of Consciousness:?Alert Patient Behavior:?Talkative, Anxious and Good Eye Contact Mood Description:?Anxious, Labile and Apprehensive Affect Description:?Labile Patient Cognition Impaired:?No Ability to Follow Directions:?Good Speech Pattern:?Spontaneous Speech Memory Description:?Episodic Impaired Hallucinations:?None Delusions:?Paranoid Ideation Perceptual Disturbances:?Depersonalization and Derealization Thought Process:?Distracted and Rumination Thought Content:?positive for Circumstantial Depressive Symptoms:?Increased Anxiety, Diff. Making Decisions, Increased Irritability, Hopelessness, Unhappiness and Difficulty Concentrating Judgement:?Fair Diagnostics Vital Signs (24Hr): Vital Signs - 24 hr 02/11/21 17:56 Temperature 98.4 F Pulse Rate 99 Respiratory Rate 18 Blood Pressure 122/62 Pulse Oximetry 100 Imaging Radiology Impressions: ITS Impressions Head CT 01/25/21 11:49 IMPRESSION: 1. There are no acute intracranial bleeds or territorial infarcts. The study partially redemonstrates the fullness in the suprasellar cistern, better shown on the prior MRI scan. 2. There are no acute osseous or soft tissue abnormalities. Medications Medications Current Medications Al Hydroxide/Mg Hydroxide (Magnesium Hydrox/Alum Hydrox 30 Ml Oral.Susp) 30 ml PO Q6H PRN PRN Reason: Heartburn/Nausea Clonazepam (Clonazepam 0.5 Mg Tablet) 0.5 mg PO BID [facility] Last Admin: 02/12/21 09:08 Dose: 0.5 mg Documented by: Hydroxyzine HCl (Hydroxyzine Hcl 25 Mg Tablet) 25 mg PO TID [facility] Last Admin: 02/12/21 09:08 Dose: 25 mg Documented by: Ketorolac Tromethamine (Ketorolac Tromethamine 30 Mg/Ml Vial) 15 mg IM BID PRN PRN Reason: cellulitis pain Last Admin: 02/08/21 21:19 Dose: 15 mg Documented by: Lorazepam (Lorazepam 2 Mg/Ml Vial) 1 mg IM BID PRN PRN Reason: Seizure activity Last Admin: 02/11/21 22:11 Dose: 1 mg Documented by: Magnesium Hydroxide (Milk Of Magnesia 30 Ml Oral.Susp) 30 ml PO DAILY PRN PRN Reason: Constipation Mirtazapine (Mirtazapine 7.5 Mg Tablet) 7.5 mg PO BEDTIME [facility] Last Admin: 02/11/21 19:27 Dose: 7.5 mg Documented by: Multi-Ingred Cream/Lotion/Oil/Oint (Mineral Oil/Petrolatum,White 106 Gm Tube) 1 appl TOPICAL TID [facility] Last Admin: 02/12/21 09:08 Dose: 1 appl Documented by: Ondansetron HCl (Ondansetron Odt 8 Mg Tab.Rapdis) 8 mg TRANSLINGU BEDTIME [facility] Last Admin: 02/11/21 19:26 Dose: 8 mg Documented by: Ondansetron HCl (Ondansetron Odt 4 Mg Tab.Rapdis) 4 mg TRANSLINGU DAILY PRN PRN Reason: Nausea Last Admin: 02/10/21 09:29 Dose: 4 mg Documented by: Topiramate (Topiramate 25 Mg Tablet) 25 mg PO DAILY [facility] Last Admin: 02/12/21 09:08 Dose: 25 mg Documented by: Allergies Allergies Allergy/AdvReac Type Severity Reaction Status Date / Time metoclopramide [From Reglan] Allergy Muscle Verified 01/08/21 20:46 cramps haloperidol [From Haldol] AdvReac Severe Dystonia Verified 01/08/21 20:46 sucralfate [From Carafate] AdvReac Severe vomiting Verified 01/08/21 20:46 band-aids AdvReac Intermediate skin Uncoded 02/04/21 17:52 irritation Assessment & Plan Assessment & Plan (1) PTSD (post-traumatic stress disorder): Status: Acute Code(s): F43.10 - Post-traumatic stress disorder, unspecified (2) Schizoaffective disorder, bipolar type: Status: Acute Code(s): F25.0 - Schizoaffective disorder, bipolar type Assessment and Plan: 25 yo female returns to after extensive medical evaluation of seizure activity. 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 Pt also with inability to swallow medications due to nausea, vomiting, abdominal pain. GI testing is negative thus far. Discussed with Delaney the next step in her treatment. Discussed possible conversion reactions secondary to PTSD which she agrees is a strong possiblity. Asked if she would consider referral to [place] if we were able and she declined. She is willing to trial a new out pt therapist (female only) and will do a 14 day Abilify po trial with IM Zofran with the plan to transition to M[facility]. Plan: 1. Ensure tid with meals-vanilla only. 2. Ativan 1 mg IM prn seizure activity 3. Zofran 4 mg IM HS prior to Abilify dosing 4. Abilify 10 mg HS. Weekend Coverage: 01/24- Pt continues to have episodes of pseudoseizures in the evening, appears to be responding well to IM hydroxyzine 50 mg at bedtime. Will continue abilify PO trial with IM zofran. 01/25- Will discontinue hydroxyzine PO PRN, as pt prefers IM due to reported GI distress. Discussed with primary provider and will start abilify maintena 300 mg AM. Pt denies adverse effects on PO abilify, tolerating it well. Continues to have pseudoseizure in evening. Discussed with hospitalist, who recommended clinical staff anesthesiologist contact hospitalist, direct pt to bed, and continue to use hydroxyzine IM PRN or ativan IM PRN for relief. 01/26/21 Tentative Abilify Maintena IM 300 mg for 01/27/21. Dr. Christensen to consult with pt on 01/27 as well. 01/27/21 Hold Abilify PRITCHETT today s/p seizure. 01/28/21 Discontinue Abilify Maintena Remeron 7.5 mg HS 01/29/21 Klonopin 0.5 mg HS Continue Mirtazapine 01/30/21 Increase Zofran to 8 mg IM HS-pt request as she is having GI distress with new medications. Continue Klonopin/Mirtazapine trial 01/31 and 02/01/21: Ct Rx plan 02/02/21: Ct. current plan. Seizure activity with clearer precipitants Family meeting with pt 02/04 to discuss Abilify Maintena Trial Will provide added educational material in terms of how Abilify may assist pt in symptom mgt. 02/03/21 Seizure activity present Family meeting 02/04/21 Continue current med regime 02/04/21 Family meeting to discuss discharge planning. Pt beginning to discuss her traumatic experience with her brother to her parents. Parents to discuss what their next step is. Pt wants her brother to move from the family home. Tentative plan would be for pt to return to father's home as she cannot smoke cannabis in mother's partners home. Abilify 10 mg po 02/05 and with IM Maintena on 02/07. 02/05/21 Pt took initiative today to review meds and request changes from IM to PO to assist in her arms healing. Continue current plan of care. 02/06/21 Continue current plan of care 02/07/21 Abilify Maintena given Observe for adverse effects. 02/08/21 Continue current plan Pt considering a mood stabilizer for seizure mgt, headache mgt, mood-Will hold as Abilify is new. 02/09/21: Topiramate 25 mg daily Pt asks for second opinion regarding pituitary tumor Discharge planning. 02/10/21 Continue current plan. 02/11/21 No changes today in medications. Continue support, education, modulation work 02/12/21: Start trial of clonidine 0.1 mg BID, as pt is reporting urges to self harm, feeling triggered, has sx of PTSD. Reviewed risks and benefits. I spent minutes with the patient and/or on the patient floor today, greater than?50% of which was spent counseling/coordinating care. Reason for contiued inpatient stay Substantial Risk for: harm to self, rapid decompensation and med/psych decompensation
[2021-02-12] MEDS: Magnesium Hydrox/Alum Hydrox 30 ML ORAL.SUSP PO (17:44)
[2021-02-12 19:03] VITALS: BP 137/92; PULSE 118; RESP 18; TEMP 36.6; O2SAT 100
[2021-02-12 19:58] VITALS: BP 129/75; PULSE 118
[2021-02-12] MEDS: cloNIDine HCL 0.1 MG TABLET PO (19:58)
[2021-02-12] MEDS: Mirtazapine 7.5 MG TABLET PO (19:58)
[2021-02-12] MEDS: Ondansetron ODT 8 MG TAB.RAPDIS TRANSLINGU (19:59)
[2021-02-13] MEDS: clonazePAM 0.5 MG TABLET PO ×2 (10:05→20:32)
[2021-02-13] MEDS: Topiramate 25 MG TABLET PO (10:05)
[2021-02-13] MEDS: Mineral Oil/Petrolatum,White 106 GM Tube 1 APPL TOPICAL ×2 (10:06→22:10)
[2021-02-13 10:07] VITALS: BP 114/76; PULSE 126
[2021-02-13] MEDS: cloNIDine HCL 0.1 MG TABLET PO ×2 (10:07→20:32)
--- NOTE | 2021-02-13 11:24 | P.PNPSI_ITS ---
Subjective Subjective Date of Service: 02/13/21 Reason For Visit: Psychosis Interim History: Patient seen and discussed with team. Patient evaluated this morning and upon interview pt reports she slept some and feels somewhat calmer in her body since starting clonidine. Still restricting appetite in effort to punish self as she perceives staff setting boundaries as staff being upset with her. Encouraged to eat and attend to self care strategies. Pt denies urges to self harm other than restriction, denies SI, says she feels safe. Medication Compliance: Yes Side effects from medications: No Attending Groups: Yes Review of Systems Acute medical concerns: No Medical Review of Systems: unchanged Mental Status Exam Mental Status Exam Narrative: Patient Appearance:?Appropriate Patient Orientation:?Person, Place, Time and Situation Level of Consciousness:?Alert Patient Behavior:?Talkative, Anxious and Good Eye Contact Mood Description:?Anxious, Labile and Apprehensive Affect Description:?Labile Patient Cognition Impaired:?No Ability to Follow Directions:?Good Speech Pattern:?Spontaneous Speech Memory Description:?Episodic Impaired Hallucinations:?None Delusions:?Paranoid Ideation Perceptual Disturbances:?Depersonalization and Derealization Thought Process:?Distracted and Rumination Thought Content:?positive for Circumstantial Depressive Symptoms:?Increased Anxiety, Diff. Making Decisions, Increased Irritability, Hopelessness, Unhappiness and Difficulty Concentrating Judgement:?Fair Diagnostics Vital Signs (24Hr): Vital Signs - 24 hr 02/15/21 09:17 02/15/21 18:00 02/16/21 06:00 Temperature 98 F 97.4 F Pulse Rate 102 H 74 98 Respiratory Rate 16 16 Blood Pressure 97/63 118/68 105/61 Pulse Oximetry 100 Imaging Radiology Impressions: ITS Impressions Head CT 01/25/21 11:49 IMPRESSION: 1. There are no acute intracranial bleeds or territorial infarcts. The study partially redemonstrates the fullness in the suprasellar cistern, better shown on the prior MRI scan. 2. There are no acute osseous or soft tissue abnormalities. Medications Medications Current Medications Al Hydroxide/Mg Hydroxide (Magnesium Hydrox/Alum Hydrox 30 Ml Oral.Susp) 30 ml PO Q6H PRN PRN Reason: Heartburn/Nausea Last Admin: 02/13/21 15:43 Dose: 30 ml Documented by: Clonazepam (Clonazepam 0.5 Mg Tablet) 0.5 mg PO BID FROILAN Last Admin: 02/15/21 22:02 Dose: 0.5 mg Documented by: Clonidine HCl (Clonidine Hcl 0.1 Mg Tablet) 0.1 mg PO BID [facility]; Protocol Last Admin: 02/15/21 22:02 Dose: 0.1 mg Documented by: Hydroxyzine HCl (Hydroxyzine Hcl 50 Mg Tablet) 50 mg PO BEDTIME [facility] Last Admin: 02/15/21 22:03 Dose: 50 mg Documented by: Hydroxyzine HCl (Hydroxyzine Hcl 25 Mg Tablet) 25 mg PO TID PRN PRN Reason: anxiety Lorazepam (Lorazepam 2 Mg/Ml Vial) 1 mg IM BID PRN PRN Reason: Seizure activity Last Admin: 02/11/21 22:11 Dose: 1 mg Documented by: Magnesium Hydroxide (Milk Of Magnesia 30 Ml Oral.Susp) 30 ml PO DAILY PRN PRN Reason: Constipation Mirtazapine (Mirtazapine 7.5 Mg Tablet) 7.5 mg PO BEDTIME [facility] Last Admin: 02/15/21 22:03 Dose: 7.5 mg Documented by: Multi-Ingred Cream/Lotion/Oil/Oint (Mineral Oil/Petrolatum,White 106 Gm Tube) 1 appl TOPICAL TID [facility] Last Admin: 02/15/21 22:16 Dose: 1 appl Documented by: Ondansetron HCl (Ondansetron Odt 8 Mg Tab.Rapdis) 8 mg TRANSLINGU BEDTIME [facility] Last Admin: 02/15/21 20:21 Dose: 8 mg Documented by: Ondansetron HCl (Ondansetron Odt 4 Mg Tab.Rapdis) 4 mg TRANSLINGU DAILY PRN PRN Reason: Nausea Last Admin: 02/10/21 09:29 Dose: 4 mg Documented by: Topiramate (Topiramate 25 Mg Tablet) 25 mg PO DAILY [facility] Last Admin: 02/15/21 09:17 Dose: 25 mg Documented by: Allergies Allergies Allergy/AdvReac Type Severity Reaction Status Date / Time metoclopramide [From Reglan] Allergy Muscle Verified 01/08/21 20:46 cramps haloperidol [From Haldol] AdvReac Severe Dystonia Verified 01/08/21 20:46 sucralfate [From Carafate] AdvReac Severe vomiting Verified 01/08/21 20:46 band-aids AdvReac Intermediate skin Uncoded 02/04/21 17:52 irritation Assessment & Plan Assessment & Plan (1) PTSD (post-traumatic stress disorder): Status: Acute Code(s): F43.10 - Post-traumatic stress disorder, unspecified (2) Schizoaffective disorder, bipolar type: Status: Acute Code(s): F25.0 - Schizoaffective disorder, bipolar type Assessment and Plan: 25 yo female returns to after extensive medical evaluation of seizure activity. 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 Pt also with inability to swallow medications due to nausea, vomiting, abdominal pain. GI testing is negative thus far. Discussed with Delaney the next step in her treatment. Discussed possible conversion reactions secondary to PTSD which she agrees is a strong possiblity. Asked if she would consider referral to [place] if we were able and she declined. She is willing to trial a new out pt therapist (female only) and will do a 14 day Abilify po trial with IM Zofran with the plan to transition to Maintena. Plan: 1. Ensure tid with meals-vanilla only. 2. Ativan 1 mg IM prn seizure activity 3. Zofran 4 mg IM HS prior to Abilify dosing 4. Abilify 10 mg HS. Weekend Coverage: 01/24- Pt continues to have episodes of pseudoseizures in the evening, appears to be responding well to IM hydroxyzine 50 mg at bedtime. Will continue abilify PO trial with IM zofran. 01/25- Will discontinue hydroxyzine PO PRN, as pt prefers IM due to reported GI distress. Discussed with primary provider and will start abilify maintena 300 mg AM. Pt denies adverse effects on PO abilify, tolerating it well. Continues to have pseudoseizure in evening. Discussed with hospitalist, who recommended staff climate scientist contact hospitalist, direct pt to bed, and continue to use hydroxyzine IM PRN or ativan IM PRN for relief. 01/26/21 Tentative Abilify Maintena IM 300 mg for 01/27/21. Dr. Christensen to consult with pt on 01/27 as well. 01/27/21 Hold Abilify PRITCHETT today s/p seizure. 01/28/21 Discontinue Abilify Maintena Remeron 7.5 mg HS 01/29/21 Klonopin 0.5 mg HS Continue Mirtazapine 01/30/21 Increase Zofran to 8 mg IM HS-pt request as she is having GI distress with new medications. Continue Klonopin/Mirtazapine trial 01/31 and 02/01/21: Ct Rx plan 02/02/21: Ct. current plan. Seizure activity with clearer precipitants Family meeting with pt 02/04 to discuss Abilify Maintena Trial Will provide added educational material in terms of how Abilify may assist pt in symptom mgt. 02/03/21 Seizure activity present Family meeting 02/04/21 Continue current med regime 02/04/21 Family meeting to discuss discharge planning. Pt beginning to discuss her traumatic experience with her brother to her parents. Parents to discuss what their next step is. Pt wants her brother to move from the family home. Tentative plan would be for pt to return to father's home as she cannot smoke cannabis in mother's partners home. Abilify 10 mg po 02/05 and with IM Maintena on 02/07. 02/05/21 Pt took initiative today to review meds and request changes from IM to PO to assist in her arms healing. Continue current plan of care. 02/06/21 Continue current plan of care 02/07/21 Abilify Maintena given Observe for adverse effects. 02/08/21 Continue current plan Pt considering a mood stabilizer for seizure mgt, headache mgt, mood-Will hold as Abilify is new. 02/09/21: Topiramate 25 mg daily Pt asks for second opinion regarding pituitary tumor Discharge planning. 02/10/21 Continue current plan. 02/11/21 No changes today in medications. Continue support, education, modulation work 02/12/21: Start trial of clonidine 0.1 mg BID, as pt is reporting urges to self harm, feeling triggered, has sx of PTSD. Reviewed risks and benefits. 02/13/21: Denies SE on clonidine, reports some improvement in sleep and hyperarousal, continues to endorse sx of PTSD. I spent minutes with the patient and/or on the patient floor today, greater than?50% of which was spent counseling/coordinating care. Reason for contiued inpatient stay Substantial Risk for: harm to self, rapid decompensation and med/psych decompensation
[2021-02-13] MEDS: Magnesium Hydrox/Alum Hydrox 30 ML ORAL.SUSP PO (15:43)
[2021-02-13 18:20] VITALS: BP 119/68; PULSE 100; RESP 18; TEMP 36.6; O2SAT 100
[2021-02-13] MEDS: Ondansetron ODT 8 MG TAB.RAPDIS TRANSLINGU (20:31)
[2021-02-13 20:32] VITALS: BP 120/71; PULSE 97
[2021-02-13] MEDS: hydrOXYzine HCL 25 MG TABLET PO (20:33)
[2021-02-13] MEDS: Mirtazapine 7.5 MG TABLET PO (20:33)
[2021-02-14] MEDS: Topiramate 25 MG TABLET PO (09:36)
[2021-02-14] MEDS: clonazePAM 0.5 MG TABLET PO ×2 (09:36→21:09)
[2021-02-14] MEDS: hydrOXYzine HCL 25 MG TABLET PO ×2 (09:36→21:09)
[2021-02-14 09:38] VITALS: BP 116/61; PULSE 94
[2021-02-14] MEDS: cloNIDine HCL 0.1 MG TABLET PO ×2 (09:38→21:08)
[2021-02-14] MEDS: Mineral Oil/Petrolatum,White 106 GM Tube 1 APPL TOPICAL (09:38)
--- NOTE | 2021-02-14 15:28 | HO.PSYCHPN ---
Subjective Subjective Date of Service: 02/14/21 Reason For Visit: Psychosis Interim History: Patient seen and discussed with team. Patient evaluated this morning and upon interview she reports its going. Says her body still feels calmer. Sleep last night was terrible. Discloses a pt called her the n word, doesnt feel safe around him but is able to talk to staff and utilize coping skills. Ate yogurt and little bit of muffin today. Denies SI/SIB. Medication Compliance: Yes Side effects from medications: No Attending Groups: Yes Review of Systems Acute medical concerns: No Medical Review of Systems: unchanged Mental Status Exam Mental Status Exam Narrative: Patient Appearance:?Appropriate Patient Orientation:?Person, Place, Time and Situation Level of Consciousness:?Alert Patient Behavior:?Talkative, Anxious and Good Eye Contact Mood Description:?Anxious, Labile and Apprehensive Affect Description:?Labile Patient Cognition Impaired:?No Ability to Follow Directions:?Good Speech Pattern:?Spontaneous Speech Memory Description:?Episodic Impaired Hallucinations:?None Delusions:?Paranoid Ideation Perceptual Disturbances:?Depersonalization and Derealization Thought Process:?Distracted and Rumination Thought Content:?positive for Circumstantial Depressive Symptoms:?Increased Anxiety, Diff. Making Decisions, Increased Irritability, Hopelessness, Unhappiness and Difficulty Concentrating Judgement:?Fair Diagnostics Vital Signs (24Hr): Vital Signs - 24 hr 02/15/21 09:17 02/15/21 18:00 02/16/21 06:00 Temperature 98 F 97.4 F Pulse Rate 102 H 74 98 Respiratory Rate 16 16 Blood Pressure 97/63 118/68 105/61 Pulse Oximetry 100 Imaging Radiology Impressions: ITS Impressions Head CT 01/25/21 11:49 IMPRESSION: 1. There are no acute intracranial bleeds or territorial infarcts. The study partially redemonstrates the fullness in the suprasellar cistern, better shown on the prior MRI scan. 2. There are no acute osseous or soft tissue abnormalities. Medications Medications Current Medications Al Hydroxide/Mg Hydroxide (Magnesium Hydrox/Alum Hydrox 30 Ml Oral.Susp) 30 ml PO Q6H PRN PRN Reason: Heartburn/Nausea Last Admin: 02/13/21 15:43 Dose: 30 ml Documented by: Clonazepam (Clonazepam 0.5 Mg Tablet) 0.5 mg PO BID FROILAN Last Admin: 02/15/21 22:02 Dose: 0.5 mg Documented by: Clonidine HCl (Clonidine Hcl 0.1 Mg Tablet) 0.1 mg PO BID [facility]; Protocol Last Admin: 02/15/21 22:02 Dose: 0.1 mg Documented by: Hydroxyzine HCl (Hydroxyzine Hcl 50 Mg Tablet) 50 mg PO BEDTIME [facility] Last Admin: 02/15/21 22:03 Dose: 50 mg Documented by: Hydroxyzine HCl (Hydroxyzine Hcl 25 Mg Tablet) 25 mg PO TID PRN PRN Reason: anxiety Lorazepam (Lorazepam 2 Mg/Ml Vial) 1 mg IM BID PRN PRN Reason: Seizure activity Last Admin: 02/11/21 22:11 Dose: 1 mg Documented by: Magnesium Hydroxide (Milk Of Magnesia 30 Ml Oral.Susp) 30 ml PO DAILY PRN PRN Reason: Constipation Mirtazapine (Mirtazapine 7.5 Mg Tablet) 7.5 mg PO BEDTIME [facility] Last Admin: 02/15/21 22:03 Dose: 7.5 mg Documented by: Multi-Ingred Cream/Lotion/Oil/Oint (Mineral Oil/Petrolatum,White 106 Gm Tube) 1 appl TOPICAL TID [facility] Last Admin: 02/15/21 22:16 Dose: 1 appl Documented by: Ondansetron HCl (Ondansetron Odt 8 Mg Tab.Rapdis) 8 mg TRANSLINGU BEDTIME [facility] Last Admin: 02/15/21 20:21 Dose: 8 mg Documented by: Ondansetron HCl (Ondansetron Odt 4 Mg Tab.Rapdis) 4 mg TRANSLINGU DAILY PRN PRN Reason: Nausea Last Admin: 02/10/21 09:29 Dose: 4 mg Documented by: Topiramate (Topiramate 25 Mg Tablet) 25 mg PO DAILY [facility] Last Admin: 02/15/21 09:17 Dose: 25 mg Documented by: Allergies Allergies Allergy/AdvReac Type Severity Reaction Status Date / Time metoclopramide [From Reglan] Allergy Muscle Verified 01/08/21 20:46 cramps haloperidol [From Haldol] AdvReac Severe Dystonia Verified 01/08/21 20:46 sucralfate [From Carafate] AdvReac Severe vomiting Verified 01/08/21 20:46 band-aids AdvReac Intermediate skin Uncoded 02/04/21 17:52 irritation Assessment & Plan Assessment & Plan (1) PTSD (post-traumatic stress disorder): Status: Acute Code(s): F43.10 - Post-traumatic stress disorder, unspecified (2) Schizoaffective disorder, bipolar type: Status: Acute Code(s): F25.0 - Schizoaffective disorder, bipolar type Assessment and Plan: 25 yo female returns to after extensive medical evaluation of seizure activity. 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 Pt also with inability to swallow medications due to nausea, vomiting, abdominal pain. GI testing is negative thus far. Discussed with Delaney the next step in her treatment. Discussed possible conversion reactions secondary to PTSD which she agrees is a strong possiblity. Asked if she would consider referral to [place] if we were able and she declined. She is willing to trial a new out pt therapist (female only) and will do a 14 day Abilify po trial with IM Zofran with the plan to transition to Maintena. Plan: 1. Ensure tid with meals-vanilla only. 2. Ativan 1 mg IM prn seizure activity 3. Zofran 4 mg IM HS prior to Abilify dosing 4. Abilify 10 mg HS. Weekend Coverage: 01/24- Pt continues to have episodes of pseudoseizures in the evening, appears to be responding well to IM hydroxyzine 50 mg at bedtime. Will continue abilify PO trial with IM zofran. 01/25- Will discontinue hydroxyzine PO PRN, as pt prefers IM due to reported GI distress. Discussed with primary provider and will start abilify maintena 300 mg AM. Pt denies adverse effects on PO abilify, tolerating it well. Continues to have pseudoseizure in evening. Discussed with hospitalist, who recommended staff editor contact hospitalist, direct pt to bed, and continue to use hydroxyzine IM PRN or ativan IM PRN for relief. 01/26/21 Tentative Abilify Maintena IM 300 mg for 01/27/21. Dr. Christensen to consult with pt on 01/27 as well. 01/27/21 Hold Abilify PRITCHETT today s/p seizure. 01/28/21 Discontinue Abilify Maintena Remeron 7.5 mg HS 01/29/21 Klonopin 0.5 mg HS Continue Mirtazapine 01/30/21 Increase Zofran to 8 mg IM HS-pt request as she is having GI distress with new medications. Continue Klonopin/Mirtazapine trial 01/31 and 02/01/21: Ct Rx plan 02/02/21: Ct. current plan. Seizure activity with clearer precipitants Family meeting with pt 02/04 to discuss Abilify Maintena Trial Will provide added educational material in terms of how Abilify may assist pt in symptom mgt. 02/03/21 Seizure activity present Family meeting 02/04/21 Continue current med regime 02/04/21 Family meeting to discuss discharge planning. Pt beginning to discuss her traumatic experience with her brother to her parents. Parents to discuss what their next step is. Pt wants her brother to move from the family home. Tentative plan would be for pt to return to father's home as she cannot smoke cannabis in mother's partners home. Abilify 10 mg po 02/05 and with IM Maintena on 02/07. 02/05/21 Pt took initiative today to review meds and request changes from IM to PO to assist in her arms healing. Continue current plan of care. 02/06/21 Continue current plan of care 02/07/21 Abilify Maintena given Observe for adverse effects. 02/08/21 Continue current plan Pt considering a mood stabilizer for seizure mgt, headache mgt, mood-Will hold as Abilify is new. 02/09/21: Topiramate 25 mg daily Pt asks for second opinion regarding pituitary tumor Discharge planning. 02/10/21 Continue current plan. 02/11/21 No changes today in medications. Continue support, education, modulation work 02/12/21: Start trial of clonidine 0.1 mg BID, as pt is reporting urges to self harm, feeling triggered, has sx of PTSD. Reviewed risks and benefits. 02/13/21: Denies SE on clonidine, reports some improvement in sleep and hyperarousal, continues to endorse sx of PTSD. 02/14/21: Pt's appetite has improved somewhat and pt has been reporting benefit on medications, however says sleep was poor and she continues to endorse sx of PTSD. I spent minutes with the patient and/or on the patient floor today, greater than?50% of which was spent counseling/coordinating care. Reason for contiued inpatient stay Substantial Risk for: harm to self, rapid decompensation and med/psych decompensation
[2021-02-14 18:00] VITALS: BP 102/74; PULSE 96; RESP 18; TEMP 36.3; O2SAT 97
[2021-02-14] MEDS: Ondansetron ODT 8 MG TAB.RAPDIS TRANSLINGU (20:41)
[2021-02-14 21:08] VITALS: BP 102/74; PULSE 96
[2021-02-14] MEDS: Mirtazapine 7.5 MG TABLET PO (21:09)
[2021-02-15 06:00] VITALS: BP 97/63; PULSE 102; RESP 18; TEMP 36.5; O2SAT 100
[2021-02-15 09:17] VITALS: BP 97/63; PULSE 102
[2021-02-15] MEDS: clonazePAM 0.5 MG TABLET PO ×2 (09:17→22:02)
[2021-02-15] MEDS: hydrOXYzine HCL 25 MG TABLET PO ×2 (09:17→14:19)
[2021-02-15] MEDS: Topiramate 25 MG TABLET PO (09:17)
[2021-02-15] MEDS: cloNIDine HCL 0.1 MG TABLET PO ×2 (09:17→22:02)
[2021-02-15] MEDS: Mineral Oil/Petrolatum,White 106 GM Tube 1 APPL TOPICAL ×2 (09:19→22:16)
--- NOTE | 2021-02-15 16:32 | HO.PSYCHPN ---
Subjective Subjective Date of Service: 02/15/21 Reason For Visit: Psychosis Interim History: Patient seen and discussed with team. Patient evaluated this morning and upon interview pt reports she didnt sleep at all last night, says her door is so squeaky, does not like nightly checks, lies awake at night, says her anxiety is worse at night because the drama is way worse at night, referring to social issues on the milieu. Reports she only ate breakfast because the kitchen did not bring up the correct meal for lunch and dinner. Denies feeling tired in the day. Today she says her flashbacks are so much stronger. Denies SI/SIB/HI upon inquiry. Says she feels safe. Medication Compliance: Yes Side effects from medications: No Attending Groups: Yes Review of Systems Acute medical concerns: No Medical Review of Systems: unchanged Mental Status Exam Mental Status Exam Narrative: Patient Appearance:?Appropriate Patient Orientation:?Person, Place, Time and Situation Level of Consciousness:?Alert Patient Behavior:?Talkative, Anxious and Good Eye Contact Mood Description:?Anxious, Labile and Apprehensive Affect Description:?Labile Patient Cognition Impaired:?No Ability to Follow Directions:?Good Speech Pattern:?Spontaneous Speech Memory Description:?Episodic Impaired Hallucinations:?None Delusions:?Paranoid Ideation Perceptual Disturbances:?Depersonalization and Derealization Thought Process:?Distracted and Rumination Thought Content:?positive for Circumstantial Depressive Symptoms:?Increased Anxiety, Diff. Making Decisions, Increased Irritability, Hopelessness, Unhappiness and Difficulty Concentrating Judgement:?Fair Diagnostics Vital Signs (24Hr): Vital Signs - 24 hr 02/15/21 09:17 02/15/21 18:00 02/16/21 06:00 Temperature 98 F 97.4 F Pulse Rate 102 H 74 98 Respiratory Rate 16 16 Blood Pressure 97/63 118/68 105/61 Pulse Oximetry 100 Imaging Radiology Impressions: ITS Impressions Head CT 01/25/21 11:49 IMPRESSION: 1. There are no acute intracranial bleeds or territorial infarcts. The study partially redemonstrates the fullness in the suprasellar cistern, better shown on the prior MRI scan. 2. There are no acute osseous or soft tissue abnormalities. Medications Medications Current Medications Al Hydroxide/Mg Hydroxide (Magnesium Hydrox/Alum Hydrox 30 Ml Oral.Susp) 30 ml PO Q6H PRN PRN Reason: Heartburn/Nausea Last Admin: 02/13/21 15:43 Dose: 30 ml Documented by: Clonazepam (Clonazepam 0.5 Mg Tablet) 0.5 mg PO BID [facility] Last Admin: 02/15/21 22:02 Dose: 0.5 mg Documented by: Clonidine HCl (Clonidine Hcl 0.1 Mg Tablet) 0.1 mg PO BID [facility]; Protocol Last Admin: 02/15/21 22:02 Dose: 0.1 mg Documented by: Hydroxyzine HCl (Hydroxyzine Hcl 50 Mg Tablet) 50 mg PO BEDTIME [facility] Last Admin: 02/15/21 22:03 Dose: 50 mg Documented by: Hydroxyzine HCl (Hydroxyzine Hcl 25 Mg Tablet) 25 mg PO TID PRN PRN Reason: anxiety Lorazepam (Lorazepam 2 Mg/Ml Vial) 1 mg IM BID PRN PRN Reason: Seizure activity Last Admin: 02/11/21 22:11 Dose: 1 mg Documented by: Magnesium Hydroxide (Milk Of Magnesia 30 Ml Oral.Susp) 30 ml PO DAILY PRN PRN Reason: Constipation Mirtazapine (Mirtazapine 7.5 Mg Tablet) 7.5 mg PO BEDTIME [facility] Last Admin: 02/15/21 22:03 Dose: 7.5 mg Documented by: Multi-Ingred Cream/Lotion/Oil/Oint (Mineral Oil/Petrolatum,White 106 Gm Tube) 1 appl TOPICAL TID [facility] Last Admin: 02/15/21 22:16 Dose: 1 appl Documented by: Ondansetron HCl (Ondansetron Odt 8 Mg Tab.Rapdis) 8 mg TRANSLINGU BEDTIME [facility] Last Admin: 02/15/21 20:21 Dose: 8 mg Documented by: Ondansetron HCl (Ondansetron Odt 4 Mg Tab.Rapdis) 4 mg TRANSLINGU DAILY PRN PRN Reason: Nausea Last Admin: 02/10/21 09:29 Dose: 4 mg Documented by: Topiramate (Topiramate 25 Mg Tablet) 25 mg PO DAILY [facility] Last Admin: 02/15/21 09:17 Dose: 25 mg Documented by: Allergies Allergies Allergy/AdvReac Type Severity Reaction Status Date / Time metoclopramide [From Reglan] Allergy Muscle Verified 01/08/21 20:46 cramps haloperidol [From Haldol] AdvReac Severe Dystonia Verified 01/08/21 20:46 sucralfate [From Carafate] AdvReac Severe vomiting Verified 01/08/21 20:46 band-aids AdvReac Intermediate skin Uncoded 02/04/21 17:52 irritation Assessment & Plan Assessment & Plan (1) PTSD (post-traumatic stress disorder): Status: Acute Code(s): F43.10 - Post-traumatic stress disorder, unspecified (2) Schizoaffective disorder, bipolar type: Status: Acute Code(s): F25.0 - Schizoaffective disorder, bipolar type Assessment and Plan: 25 yo female returns to after extensive medical evaluation of seizure activity. 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 Pt also with inability to swallow medications due to nausea, vomiting, abdominal pain. GI testing is negative thus far. Discussed with Delaney the next step in her treatment. Discussed possible conversion reactions secondary to PTSD which she agrees is a strong possiblity. Asked if she would consider referral to [place] if we were able and she declined. She is willing to trial a new out pt therapist (female only) and will do a 14 day Abilify po trial with IM Zofran with the plan to transition to Maintena. Plan: 1. Ensure tid with meals-vanilla only. 2. Ativan 1 mg IM prn seizure activity 3. Zofran 4 mg IM HS prior to Abilify dosing 4. Abilify 10 mg HS. Weekend Coverage: 01/24- Pt continues to have episodes of pseudoseizures in the evening, appears to be responding well to IM hydroxyzine 50 mg at bedtime. Will continue abilify PO trial with IM zofran. 01/25- Will discontinue hydroxyzine PO PRN, as pt prefers IM due to reported GI distress. Discussed with primary provider and will start abilify maintena 300 mg AM. Pt denies adverse effects on PO abilify, tolerating it well. Continues to have pseudoseizure in evening. Discussed with hospitalist, who recommended staff field engineer contact hospitalist, direct pt to bed, and continue to use hydroxyzine IM PRN or ativan IM PRN for relief. 01/26/21 Tentative Abilify Maintena IM 300 mg for 01/27/21. Dr. Christensen to consult with pt on 01/27 as well. 01/27/21 Hold Abilify PRITCHETT today s/p seizure. 01/28/21 Discontinue Abilify Maintena Remeron 7.5 mg HS 01/29/21 Klonopin 0.5 mg HS Continue Mirtazapine 01/30/21 Increase Zofran to 8 mg IM HS-pt request as she is having GI distress with new medications. Continue Klonopin/Mirtazapine trial 01/31 and 02/01/21: Ct Rx plan 02/02/21: Ct. current plan. Seizure activity with clearer precipitants Family meeting with pt 02/04 to discuss Abilify Maintena Trial Will provide added educational material in terms of how Abilify may assist pt in symptom mgt. 02/03/21 Seizure activity present Family meeting 02/04/21 Continue current med regime 02/04/21 Family meeting to discuss discharge planning. Pt beginning to discuss her traumatic experience with her brother to her parents. Parents to discuss what their next step is. Pt wants her brother to move from the family home. Tentative plan would be for pt to return to father's home as she cannot smoke cannabis in mother's partners home. Abilify 10 mg po 02/05 and with IM Maintena on 02/07. 02/05/21 Pt took initiative today to review meds and request changes from IM to PO to assist in her arms healing. Continue current plan of care. 02/06/21 Continue current plan of care 02/07/21 Abilify Maintena given Observe for adverse effects. 02/08/21 Continue current plan Pt considering a mood stabilizer for seizure mgt, headache mgt, mood-Will hold as Abilify is new. 02/09/21: Topiramate 25 mg daily Pt asks for second opinion regarding pituitary tumor Discharge planning. 02/10/21 Continue current plan. 02/11/21 No changes today in medications. Continue support, education, modulation work 02/12/21: Start trial of clonidine 0.1 mg BID, as pt is reporting urges to self harm, feeling triggered, has sx of PTSD. Reviewed risks and benefits. 02/13/21: Denies SE on clonidine, reports some improvement in sleep and hyperarousal, continues to endorse sx of PTSD. 02/14/21: Pt's appetite has improved somewhat and pt has been reporting benefit on medications, however says sleep was poor and she continues to endorse sx of PTSD. 02/15/21: Pt reports sx of PTSD, unclear if clonidine has been helpful. Encouraged pt to attend to ADLs. I spent minutes with the patient and/or on the patient floor today, greater than?50% of which was spent counseling/coordinating care. Reason for contiued inpatient stay Substantial Risk for: harm to self, rapid decompensation and med/psych decompensation
[2021-02-15 18:00] VITALS: BP 118/68; PULSE 74; RESP 16; TEMP 36.6
[2021-02-15] MEDS: Ondansetron ODT 8 MG TAB.RAPDIS TRANSLINGU (20:21)
[2021-02-15] MEDS: Mirtazapine 7.5 MG TABLET PO (22:03)
[2021-02-15] MEDS: hydrOXYzine HCL 50 MG TABLET PO (22:03)
--- NOTE | 2021-02-15 22:55 | PC.NURSE ---
At approximately 6:05 pm PT began to have seizure like activity (eyes rolling and arms shaking) while in bed. VS remained stable throughout episode that lasted approximately 10 minutes. PT was emotionally supported throughout the episode and did not require any medication. PT did not lose control of bowels or bladder and recovered without any lasting effects.
[2021-02-16 06:00] VITALS: BP 105/61; PULSE 98; RESP 16; TEMP 36.3; O2SAT 100
[2021-02-16] MEDS: Topiramate 25 MG TABLET PO (10:56)
[2021-02-16] MEDS: Mineral Oil/Petrolatum,White 106 GM Tube 1 APPL TOPICAL ×2 (10:56→14:29)
[2021-02-16] MEDS: clonazePAM 0.5 MG TABLET PO ×2 (10:56→22:11)
[2021-02-16 10:57] VITALS: BP 98/64; PULSE 94
[2021-02-16] MEDS: cloNIDine HCL 0.1 MG TABLET PO ×2 (10:57→22:10)
--- NOTE | 2021-02-16 13:22 | P.PNPSI_ITS ---
Subjective Subjective Date of Service: 02/16/21 Reason For Visit: Psychosis Subjective Notes: Conditional Voluntary Healthcare Proxy: No Guardianship: No Medical Problems Affecting Mental Status: No Interim History: Pt reports she continues with headache, does experience double vision at times-reports eye exam > 1 year ago and has been using her glasses from home for >1 week. Seizure activity continues, however infrequent, usually tied to overt stressor in environment or identifiable trigger. Responds to support. Accepting PO medications and working hard on symptom managment/trigger managment and on moving ahead in a positive frame of reference. Review of medications. Discussed adding PO Abilify to PRITCHETT Maintena as mother had requested-pt reports she will try with ongoing GI sx concerns. Also, discussed Topiramate efficacy for headache mgt-pt reports no change-would like to trial Depakote, which was previously discussed-pt aware that this medication is not suggested for child-bearing age women, pt again responds that she has no intention of having children and asks for trial. She verbalized understanding of potential defects if she becomes while on Depakote. She also discussed her change of perspective regarding second opinion regarding pituitary adenoma. She requests consult with [facility] as she has been given a positive reference from a peer regarding [facility] [place] [place] consultations. Medication Compliance: Yes Side effects from medications: No Attending Groups: Yes Review of Systems Acute medical concerns: No Medical Review of Systems: unchanged Review of Systems Reports behavioral changes Psychiatric: Reports anxiety, Reports behavioral changes, Reports depression, Reports hopelessness, Reports irritability, Reports anhedonia, Reports mood swings and Reports suicidal ideation Mental Status Exam Mental Status Exam Patient Appearance: Appropriate Patient Orientation: Person, Place, Time and Situation Level of Consciousness: Awake and Alert Patient Behavior: Appropriate, Talkative, Cooperative and Good Eye Contact Mood Description: Anxious Affect Description: Anxious Patient Cognition Impaired: No Ability to Follow Directions: Good Speech Pattern: Spontaneous Speech Memory Description: Intact Hallucinations: None Delusions: Not Present Perceptual Disturbances: Depersonalization and Derealization Thought Process: Linear Thought Content: positive for Linear Depressive Symptoms: Increased Anxiety, Diff. Making Decisions and Thoughts of /Suicide Judgement: Fair Diagnostics Vital Signs (24Hr): Vital Signs - 24 hr 02/15/21 18:00 02/16/21 06:00 02/16/21 10:57 Temperature 98 F 97.4 F Pulse Rate 74 98 94 Respiratory Rate 16 16 Blood Pressure 118/68 105/61 98/64 Pulse Oximetry 100 Imaging Radiology Impressions: ITS Impressions Head CT 01/25/21 11:49 IMPRESSION: 1. There are no acute intracranial bleeds or territorial infarcts. The study partially redemonstrates the fullness in the suprasellar cistern, better shown on the prior MRI scan. 2. There are no acute osseous or soft tissue abnormalities. Medications Medications Current Medications Al Hydroxide/Mg Hydroxide (Magnesium Hydrox/Alum Hydrox 30 Ml Oral.Susp) 30 ml PO Q6H PRN PRN Reason: Heartburn/Nausea Last Admin: 02/13/21 15:43 Dose: 30 ml Documented by: Clonazepam (Clonazepam 0.5 Mg Tablet) 0.5 mg PO BID [facility] Last Admin: 02/16/21 10:56 Dose: 0.5 mg Documented by: Clonidine HCl (Clonidine Hcl 0.1 Mg Tablet) 0.1 mg PO BID [facility]; Protocol Last Admin: 02/16/21 10:57 Dose: 0.1 mg Documented by: Hydroxyzine HCl (Hydroxyzine Hcl 50 Mg Tablet) 50 mg PO BEDTIME [facility] Last Admin: 02/15/21 22:03 Dose: 50 mg Documented by: Hydroxyzine HCl (Hydroxyzine Hcl 25 Mg Tablet) 25 mg PO TID PRN PRN Reason: anxiety Lorazepam (Lorazepam 2 Mg/Ml Vial) 1 mg IM BID PRN PRN Reason: Seizure activity Last Admin: 02/11/21 22:11 Dose: 1 mg Documented by: Magnesium Hydroxide (Milk Of Magnesia 30 Ml Oral.Susp) 30 ml PO DAILY PRN PRN Reason: Constipation Mirtazapine (Mirtazapine 7.5 Mg Tablet) 7.5 mg PO BEDTIME [facility] Last Admin: 02/15/21 22:03 Dose: 7.5 mg Documented by: Multi-Ingred Cream/Lotion/Oil/Oint (Mineral Oil/Petrolatum,White 106 Gm Tube) 1 appl TOPICAL TID [facility] Last Admin: 02/16/21 10:56 Dose: 1 appl Documented by: Ondansetron HCl (Ondansetron Odt 8 Mg Tab.Rapdis) 8 mg TRANSLINGU BEDTIME [facility] Last Admin: 02/15/21 20:21 Dose: 8 mg Documented by: Ondansetron HCl (Ondansetron Odt 4 Mg Tab.Rapdis) 4 mg TRANSLINGU DAILY PRN PRN Reason: Nausea Last Admin: 02/10/21 09:29 Dose: 4 mg Documented by: Topiramate (Topiramate 25 Mg Tablet) 25 mg PO DAILY [facility] Last Admin: 02/16/21 10:56 Dose: 25 mg Documented by: Allergies Allergies Allergy/AdvReac Type Severity Reaction Status Date / Time metoclopramide [From Reglan] Allergy Muscle Verified 01/08/21 20:46 cramps haloperidol [From Haldol] AdvReac Severe Dystonia Verified 01/08/21 20:46 sucralfate [From Carafate] AdvReac Severe vomiting Verified 01/08/21 20:46 band-aids AdvReac Intermediate skin Uncoded 02/04/21 17:52 irritation Assessment & Plan Assessment & Plan (1) PTSD (post-traumatic stress disorder): Status: Acute Code(s): F43.10 - Post-traumatic stress disorder, unspecified (2) Schizoaffective disorder, bipolar type: Status: Acute Code(s): F25.0 - Schizoaffective disorder, bipolar type Assessment and Plan: 25 yo female returns to after extensive medical evaluation of seizure activity. 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 Pt also with inability to swallow medications due to nausea, vomiting, abdominal pain. GI testing is negative thus far. Discussed with Delaney the next step in her treatment. Discussed possible conversion reactions secondary to PTSD which she agrees is a strong possiblity. Asked if she would consider referral to [place] if we were able and she declined. She is willing to trial a new out pt therapist (female only) and will do a 14 day Abilify po trial with IM Zofran with the plan to transition to [facility]. Plan: 1. Ensure tid with meals-vanilla only. 2. Ativan 1 mg IM prn seizure activity 3. Zofran 4 mg IM HS prior to Abilify dosing 4. Abilify 10 mg HS. Weekend Coverage: 01/24- Pt continues to have episodes of pseudoseizures in the evening, appears to be responding well to IM hydroxyzine 50 mg at bedtime. Will continue abilify PO trial with IM zofran. 01/25- Will discontinue hydroxyzine PO PRN, as pt prefers IM due to reported GI distress. Discussed with primary provider and will start abilify maintena 300 mg AM. Pt denies adverse effects on PO abilify, tolerating it well. Continues to have pseudoseizure in evening. Discussed with hospitalist, who recommended staffing assistant contact hospitalist, direct pt to bed, and continue to use hydroxyzine IM PRN or ativan IM PRN for relief. 01/26/21 Tentative Abilify Maintena IM 300 mg for 01/27/21. Dr. Christensen to consult with pt on 01/27 as well. 01/27/21 Hold Abilify PRITCHETT today s/p seizure. 01/28/21 Discontinue Abilify Maintena Remeron 7.5 mg HS 01/29/21 Klonopin 0.5 mg HS Continue Mirtazapine 01/30/21 Increase Zofran to 8 mg IM HS-pt request as she is having GI distress with new medications. Continue Klonopin/Mirtazapine trial 01/31 and 02/01/21: Ct Rx plan 02/02/21: Ct. current plan. Seizure activity with clearer precipitants Family meeting with pt 02/04 to discuss Abilify Maintena Trial Will provide added educational material in terms of how Abilify may assist pt in symptom mgt. 02/03/21 Seizure activity present Family meeting 02/04/21 Continue current med regime 02/04/21 Family meeting to discuss discharge planning. Pt beginning to discuss her traumatic experience with her brother to her parents. Parents to discuss what their next step is. Pt wants her brother to move from the family home. Tentative plan would be for pt to return to father's home as she cannot smoke cannabis in mother's partners home. Abilify 10 mg po 02/05 and with IM Maintena on 02/07. 02/05/21 Pt took initiative today to review meds and request changes from IM to PO to assist in her arms healing. Continue current plan of care. 02/06/21 Continue current plan of care 02/07/21 Abilify Maintena given Observe for adverse effects. 02/08/21 Continue current plan Pt considering a mood stabilizer for seizure mgt, headache mgt, mood-Will hold as Abilify is new. 02/09/21: Topiramate 25 mg daily Pt asks for second opinion regarding pituitary tumor Discharge planning. 02/10/21 Continue current plan. 02/11/21 No changes today in medications. Continue support, education, modulation work 02/12/21: Start trial of clonidine 0.1 mg BID, as pt is reporting urges to self harm, feeling triggered, has sx of PTSD. Reviewed risks and benefits. 02/13/21: Denies SE on clonidine, reports some improvement in sleep and hyperarousal, continues to endorse sx of PTSD. 02/14/21: Pt's appetite has improved somewhat and pt has been reporting benefit on medications, however says sleep was poor and she continues to endorse sx of PTSD. 02/15/21: Pt reports sx of PTSD, unclear if clonidine has been helpful. Encouraged pt to attend to ADLs. 02/16/21: Abilify 5 mg HS Depakote ER 250 mg HS For now, continue Topiramate-if Depakote is more effective, will taper. I spent 30 minutes with the patient and/or on the patient floor today, greater than?50% of which was spent counseling/coordinating care. Patient educated on: medication risk/benefits Informed Consent: understands and further education needed Reason for contiued inpatient stay Substantial Risk for: harm to self, inability to function and rapid decompensation
[2021-02-16] MEDS: Ondansetron ODT 8 MG TAB.RAPDIS TRANSLINGU (20:48)
[2021-02-16] MEDS: Mirtazapine 7.5 MG TABLET PO (22:10)
[2021-02-16] MEDS: ARIPiprazole 5 MG TABLET PO (22:10)
[2021-02-16] MEDS: hydrOXYzine HCL 50 MG TABLET PO (22:10)
[2021-02-16] MEDS: Divalproex Sodium ER 250 MG TAB.ER.24H PO (22:11)
[2021-02-17 06:00] VITALS: BP 107/60; PULSE 80; RESP 18; TEMP 36.6; O2SAT 100
[2021-02-17] MEDS: Topiramate 25 MG TABLET PO (09:16)
[2021-02-17] MEDS: clonazePAM 0.5 MG TABLET PO ×2 (09:17→21:16)
[2021-02-17 15:43] VITALS: BP 112/67; PULSE 91; RESP 16; TEMP 37.1; O2SAT 99
[2021-02-17 15:52] VITALS: BP 112/67; PULSE 91
[2021-02-17] MEDS: cloNIDine HCL 0.1 MG TABLET PO (15:52)
--- NOTE | 2021-02-17 17:33 | HO.PSYCHPN ---
Subjective Subjective Date of Service: 02/17/21 Reason For Visit: Psychosis Subjective Notes: Conditional Voluntary Healthcare Proxy: No Guardianship: No Medical Problems Affecting Mental Status: No Interim History: Seizure activity today-possibly triggered by discussing discharge. Reports poor sleep, racing thoughts. I think I have never slept well. Discussed medication changes which she is very open to trials. Medication Compliance: Yes Side effects from medications: No Attending Groups: Yes Review of Systems Acute medical concerns: No Medical Review of Systems: unchanged Review of Systems Reports behavioral changes Psychiatric: Reports abnormal sleep pattern, Reports anxiety, Reports behavioral changes, Reports depression, Reports hopelessness, Reports irritability, Reports anhedonia, Reports mood swings and Reports suicidal ideation Mental Status Exam Mental Status Exam Patient Appearance: Appropriate Patient Orientation: Person, Place, Time and Situation Level of Consciousness: Awake and Alert Patient Behavior: Appropriate, Talkative, Cooperative and Good Eye Contact Mood Description: Anxious Affect Description: Anxious Patient Cognition Impaired: No Ability to Follow Directions: Good Speech Pattern: Spontaneous Speech Memory Description: Intact Hallucinations: None Delusions: Not Present Perceptual Disturbances: Depersonalization and Derealization Thought Process: Linear Thought Content: positive for Linear Depressive Symptoms: Increased Anxiety, Diff. Making Decisions and Thoughts of /Suicide Judgement: Fair Diagnostics Vital Signs (24Hr): Vital Signs - 24 hr 02/17/21 06:00 02/17/21 15:43 02/17/21 15:52 Temperature 97.9 F 98.8 F Pulse Rate 80 91 91 Respiratory Rate 18 16 Blood Pressure 107/60 112/67 112/67 Pulse Oximetry 100 99 Imaging Radiology Impressions: ITS Impressions Head CT 01/25/21 11:49 IMPRESSION: 1. There are no acute intracranial bleeds or territorial infarcts. The study partially redemonstrates the fullness in the suprasellar cistern, better shown on the prior MRI scan. 2. There are no acute osseous or soft tissue abnormalities. Medications Medications Current Medications Al Hydroxide/Mg Hydroxide (Magnesium Hydrox/Alum Hydrox 30 Ml Oral.Susp) 30 ml PO Q6H PRN PRN Reason: Heartburn/Nausea Last Admin: 02/13/21 15:43 Dose: 30 ml Documented by: Aripiprazole (Aripiprazole 5 Mg Tablet) 5 mg PO DAILY FROILAN Clonazepam (Clonazepam 0.5 Mg Tablet) 0.5 mg PO BID FROILAN Last Admin: 02/17/21 09:17 Dose: 0.5 mg Documented by: Clonidine HCl (Clonidine Hcl 0.1 Mg Tablet) 0.1 mg PO BID FROILAN; Protocol Last Admin: 02/17/21 09:30 Dose: Not Given Documented by: Divalproex Sodium (Divalproex Sodium Er 500 Mg Tab.Er.24h) 500 mg PO BEDTIME FROILAN Hydroxyzine HCl (Hydroxyzine Hcl 50 Mg Tablet) 50 mg PO BEDTIME FROILAN Last Admin: 02/16/21 22:10 Dose: 50 mg Documented by: Hydroxyzine HCl (Hydroxyzine Hcl 25 Mg Tablet) 25 mg PO TID PRN PRN Reason: anxiety Lorazepam (Lorazepam 2 Mg/Ml Vial) 1 mg IM BID PRN PRN Reason: Seizure activity Last Admin: 02/11/21 22:11 Dose: 1 mg Documented by: Lorazepam (Lorazepam 1 Mg Tablet) 1 mg PO Q4H PRN PRN Reason: Anxiety Magnesium Hydroxide (Milk Of Magnesia 30 Ml Oral.Susp) 30 ml PO DAILY PRN PRN Reason: Constipation Ondansetron HCl (Ondansetron Odt 8 Mg Tab.Rapdis) 8 mg TRANSLINGU BEDTIME FROILAN Last Admin: 02/16/21 20:48 Dose: 8 mg Documented by: Ondansetron HCl (Ondansetron Odt 4 Mg Tab.Rapdis) 4 mg TRANSLINGU DAILY PRN PRN Reason: Nausea Last Admin: 02/10/21 09:29 Dose: 4 mg Documented by: Quetiapine Fumarate (Quetiapine Fumarate 50 Mg Tablet) 50 mg PO TID PRN PRN Reason: anxiety, insomnia Allergies Allergies Allergy/AdvReac Type Severity Reaction Status Date / Time metoclopramide [From Reglan] Allergy Muscle Verified 01/08/21 20:46 cramps haloperidol [From Haldol] AdvReac Severe Dystonia Verified 01/08/21 20:46 sucralfate [From Carafate] AdvReac Severe vomiting Verified 01/08/21 20:46 band-aids AdvReac Intermediate skin Uncoded 02/04/21 17:52 irritation Assessment & Plan Assessment & Plan (1) PTSD (post-traumatic stress disorder): Status: Acute Code(s): F43.10 - Post-traumatic stress disorder, unspecified (2) Schizoaffective disorder, bipolar type: Status: Acute Code(s): F25.0 - Schizoaffective disorder, bipolar type Assessment and Plan: 25 yo female returns to after extensive medical evaluation of seizure activity. 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 Pt also with inability to swallow medications due to nausea, vomiting, abdominal pain. GI testing is negative thus far. Discussed with Delaney the next step in her treatment. Discussed possible conversion reactions secondary to PTSD which she agrees is a strong possiblity. Asked if she would consider referral to [place] if we were able and she declined. She is willing to trial a new out pt therapist (female only) and will do a 14 day Abilify po trial with IM Zofran with the plan to transition to Maintena. Plan: 1. Ensure tid with meals-vanilla only. 2. Ativan 1 mg IM prn seizure activity 3. Zofran 4 mg IM HS prior to Abilify dosing 4. Abilify 10 mg HS. Weekend Coverage: 01/24- Pt continues to have episodes of pseudoseizures in the evening, appears to be responding well to IM hydroxyzine 50 mg at bedtime. Will continue abilify PO trial with IM zofran. 01/25- Will discontinue hydroxyzine PO PRN, as pt prefers IM due to reported GI distress. Discussed with primary provider and will start abilify maintena 300 mg AM. Pt denies adverse effects on PO abilify, tolerating it well. Continues to have pseudoseizure in evening. Discussed with hospitalist, who recommended nursing staffing coordinator contact hospitalist, direct pt to bed, and continue to use hydroxyzine IM PRN or ativan IM PRN for relief. 01/26/21 Tentative Abilify Maintena IM 300 mg for 01/27/21. Dr. Christensen to consult with pt on 01/27 as well. 01/27/21 Hold Abilify PRITCHETT today s/p seizure. 01/28/21 Discontinue Abilify Maintena Remeron 7.5 mg HS 01/29/21 Klonopin 0.5 mg HS Continue Mirtazapine 01/30/21 Increase Zofran to 8 mg IM HS-pt request as she is having GI distress with new medications. Continue Klonopin/Mirtazapine trial 01/31 and 02/01/21: Ct Rx plan 02/02/21: Ct. current plan. Seizure activity with clearer precipitants Family meeting with pt 02/04 to discuss Abilify Maintena Trial Will provide added educational material in terms of how Abilify may assist pt in symptom mgt. 02/03/21 Seizure activity present Family meeting 02/04/21 Continue current med regime 02/04/21 Family meeting to discuss discharge planning. Pt beginning to discuss her traumatic experience with her brother to her parents. Parents to discuss what their next step is. Pt wants her brother to move from the family home. Tentative plan would be for pt to return to father's home as she cannot smoke cannabis in mother's partners home. Abilify 10 mg po 02/05 and with IM Maintena on 02/07. 02/05/21 Pt took initiative today to review meds and request changes from IM to PO to assist in her arms healing. Continue current plan of care. 02/06/21 Continue current plan of care 02/07/21 Abilify Maintena given Observe for adverse effects. 02/08/21 Continue current plan Pt considering a mood stabilizer for seizure mgt, headache mgt, mood-Will hold as Abilify is new. 02/09/21: Topiramate 25 mg daily Pt asks for second opinion regarding pituitary tumor Discharge planning. 02/10/21 Continue current plan. 02/11/21 No changes today in medications. Continue support, education, modulation work 02/12/21: Start trial of clonidine 0.1 mg BID, as pt is reporting urges to self harm, feeling triggered, has sx of PTSD. Reviewed risks and benefits. 02/13/21: Denies SE on clonidine, reports some improvement in sleep and hyperarousal, continues to endorse sx of PTSD. 02/14/21: Pt's appetite has improved somewhat and pt has been reporting benefit on medications, however says sleep was poor and she continues to endorse sx of PTSD. 02/15/21: Pt reports sx of PTSD, unclear if clonidine has been helpful. Encouraged pt to attend to ADLs. 02/16/21: Abilify 5 mg HS Depakote ER 250 mg HS For now, continue Topiramate-if Depakote is more effective, will taper. 02/17/21 Change Abilify to a.m. dosing Discontinue Topiramate Increase Depakote to ER 500 mg HS Seroquel 50 mg tid prn Lorazepam 1 mg po q4 hours prn anxiety, panic I spent 30 minutes with the patient and/or on the patient floor today, greater than?50% of which was spent counseling/coordinating care. Patient educated on: medication risk/benefits Informed Consent: further education needed Reason for contiued inpatient stay Substantial Risk for: harm to self, inability to function and rapid decompensation
[2021-02-17] MEDS: Ondansetron ODT 8 MG TAB.RAPDIS TRANSLINGU (20:56)
[2021-02-17] MEDS: hydrOXYzine HCL 50 MG TABLET PO (21:16)
[2021-02-17] MEDS: Divalproex Sodium ER 500 MG TAB.ER.24H PO (21:16)
[2021-02-17 21:27] VITALS: BP 91/53; PULSE 80; RESP 18; TEMP 36.4; O2SAT 100
[2021-02-17] MEDS: hydrOXYzine HCL 25 MG TABLET PO (22:58)
[2021-02-17 23:01] VITALS: BP 95/52; PULSE 80
[2021-02-18] MEDS: LORazepam 1 MG TABLET PO ×2 (00:06→17:03)
[2021-02-18 08:50] VITALS: BP 102/60; PULSE 95
[2021-02-18] MEDS: cloNIDine HCL 0.1 MG TABLET PO ×2 (08:50→20:08)
[2021-02-18] MEDS: clonazePAM 0.5 MG TABLET PO ×2 (08:50→20:09)
[2021-02-18] MEDS: ARIPiprazole 5 MG TABLET PO (08:50)
--- NOTE | 2021-02-18 13:53 | P.PNPSI_ITS ---
Subjective Subjective Date of Service: 02/18/21 Reason For Visit: Psychosis Subjective Notes: Conditional Voluntary Healthcare Proxy: No Guardianship: No Medical Problems Affecting Mental Status: No Interim History: Tolerating medications PO. Reports some increase in sleep last night (minutes), however no relief from headache or insomnia. Discussed feelings of anger today and the energy it requires to manage anger. Discussed having no future goals-life, career-just to . 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 Currently without interest in returning to this. Medication Compliance: Yes Side effects from medications: No Attending Groups: Yes Review of Systems Acute medical concerns: No Medical Review of Systems: unchanged Review of Systems Constitutional: Reports headache(s) Reports headache(s) Reports headache(s) Psychiatric: Reports abnormal sleep pattern, Reports anxiety, Reports depression, Reports hopelessness, Reports irritability, Reports anhedonia, Reports mood swings and Reports suicidal ideation Mental Status Exam Mental Status Exam Patient Appearance: Appropriate Patient Orientation: Person, Place, Time and Situation Level of Consciousness: Awake and Alert Patient Behavior: Appropriate, Talkative, Cooperative and Good Eye Contact Mood Description: Anxious Affect Description: Anxious Patient Cognition Impaired: No Ability to Follow Directions: Good Speech Pattern: Spontaneous Speech Memory Description: Intact Hallucinations: None Delusions: Not Present Perceptual Disturbances: Depersonalization and Derealization Thought Process: Linear Thought Content: positive for Linear Depressive Symptoms: Increased Anxiety, Diff. Making Decisions and Thoughts of /Suicide Judgement: Fair Diagnostics Vital Signs (24Hr): Vital Signs - 24 hr 02/17/21 15:43 02/17/21 15:52 02/17/21 21:27 Temperature 98.8 F 97.5 F Pulse Rate 91 91 80 Respiratory Rate 16 18 Blood Pressure 112/67 112/67 91/53 L Pulse Oximetry 99 100 02/17/21 23:01 02/18/21 08:50 Temperature Pulse Rate 80 95 Respiratory Rate Blood Pressure 95/52 L 102/60 Pulse Oximetry Imaging Radiology Impressions: ITS Impressions Head CT 01/25/21 11:49 IMPRESSION: 1. There are no acute intracranial bleeds or territorial infarcts. The study partially redemonstrates the fullness in the suprasellar cistern, better shown on the prior MRI scan. 2. There are no acute osseous or soft tissue abnormalities. Medications Medications Current Medications Al Hydroxide/Mg Hydroxide (Magnesium Hydrox/Alum Hydrox 30 Ml Oral.Susp) 30 ml PO Q6H PRN PRN Reason: Heartburn/Nausea Last Admin: 02/13/21 15:43 Dose: 30 ml Documented by: Aripiprazole (Aripiprazole 5 Mg Tablet) 5 mg PO DAILY [facility] Last Admin: 02/18/21 08:50 Dose: 5 mg Documented by: Clonazepam (Clonazepam 0.5 Mg Tablet) 0.5 mg PO BID FROILAN Last Admin: 02/18/21 08:50 Dose: 0.5 mg Documented by: Clonidine HCl (Clonidine Hcl 0.1 Mg Tablet) 0.1 mg PO BID [facility]; Protocol Last Admin: 02/18/21 08:50 Dose: 0.1 mg Documented by: Divalproex Sodium (Divalproex Sodium Er 500 Mg Tab.Er.24h) 500 mg PO BEDTIME FROILAN Last Admin: 02/17/21 21:16 Dose: 500 mg Documented by: Hydroxyzine HCl (Hydroxyzine Hcl 50 Mg Tablet) 50 mg PO BEDTIME FROILAN Last Admin: 02/17/21 21:16 Dose: 50 mg Documented by: Hydroxyzine HCl (Hydroxyzine Hcl 25 Mg Tablet) 25 mg PO TID PRN PRN Reason: anxiety Last Admin: 02/17/21 22:58 Dose: 25 mg Documented by: Lorazepam (Lorazepam 2 Mg/Ml Vial) 1 mg IM BID PRN PRN Reason: Seizure activity Last Admin: 02/11/21 22:11 Dose: 1 mg Documented by: Lorazepam (Lorazepam 1 Mg Tablet) 1 mg PO Q4H PRN PRN Reason: Anxiety Last Admin: 02/18/21 00:06 Dose: 1 mg Documented by: Magnesium Hydroxide (Milk Of Magnesia 30 Ml Oral.Susp) 30 ml PO DAILY PRN PRN Reason: Constipation Ondansetron HCl (Ondansetron Odt 8 Mg Tab.Rapdis) 8 mg TRANSLINGU BEDTIME FROILAN Last Admin: 02/17/21 20:56 Dose: 8 mg Documented by: Ondansetron HCl (Ondansetron Odt 4 Mg Tab.Rapdis) 4 mg TRANSLINGU DAILY PRN PRN Reason: Nausea Last Admin: 02/10/21 09:29 Dose: 4 mg Documented by: Quetiapine Fumarate (Quetiapine Fumarate 50 Mg Tablet) 50 mg PO TID PRN PRN Reason: anxiety, insomnia Allergies Allergies Allergy/AdvReac Type Severity Reaction Status Date / Time metoclopramide [From Reglan] Allergy Muscle Verified 01/08/21 20:46 cramps haloperidol [From Haldol] AdvReac Severe Dystonia Verified 01/08/21 20:46 sucralfate [From Carafate] AdvReac Severe vomiting Verified 01/08/21 20:46 band-aids AdvReac Intermediate skin Uncoded 02/04/21 17:52 irritation Assessment & Plan Assessment & Plan (1) PTSD (post-traumatic stress disorder): Status: Acute Code(s): F43.10 - Post-traumatic stress disorder, unspecified (2) Schizoaffective disorder, bipolar type: Status: Acute Code(s): F25.0 - Schizoaffective disorder, bipolar type Assessment and Plan: 25 yo female returns to after extensive medical evaluation of seizure activity. 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 Pt also with inability to swallow medications due to nausea, vomiting, abdominal pain. GI testing is negative thus far. Discussed with Delaney the next step in her treatment. Discussed possible conversion reactions secondary to PTSD which she agrees is a strong possiblity. Asked if she would consider referral to [place] if we were able and she declined. She is willing to trial a new out pt therapist (female only) and will do a 14 d ay Abilify po trial with IM Zofran with the plan to transition to Maintena. Plan: 1. Ensure tid with meals-vanilla only. 2. Ativan 1 mg IM prn seizure activity 3. Zofran 4 mg IM HS prior to Abilify dosing 4. Abilify 10 mg HS. Weekend Coverage: 01/24- Pt continues to have episodes of pseudoseizures in the evening, appears to be responding well to IM hydroxyzine 50 mg at bedtime. Will continue abilify PO trial with IM zofran. 01/25- Will discontinue hydroxyzine PO PRN, as pt prefers IM due to reported GI distress. Discussed with primary provider and will start abilify maintena 300 mg AM. Pt denies adverse effects on PO abilify, tolerating it well. Continues to have pseudoseizure in evening. Discussed with hospitalist, who recommended staff educator contact hospitalist, direct pt to bed, and continue to use hydroxyzine IM PRN or ativan IM PRN for relief. 01/26/21 Tentative Abilify Maintena IM 300 mg for 01/27/21. Dr. Christensen to consult with pt on 01/27 as well. 01/27/21 Hold Abilify PRITCHETT today s/p seizure. 01/28/21 Discontinue Abilify Maintena Remeron 7.5 mg HS 01/29/21 Klonopin 0.5 mg HS Continue Mirtazapine 01/30/21 Increase Zofran to 8 mg IM HS-pt request as she is having GI distress with new medications. Continue Klonopin/Mirtazapine trial 01/31 and 02/01/21: Ct Rx plan 02/02/21: Ct. current plan. Seizure activity with clearer precipitants Family meeting with pt 02/04 to discuss Abilify Maintena Trial Will provide added educational material in terms of how Abilify may assist pt in symptom mgt. 02/03/21 Seizure activity present Family meeting 02/04/21 Continue current med regime 02/04/21 Family meeting to discuss discharge planning. Pt beginning to discuss her traumatic experience with her brother to her parents. Parents to discuss what their next step is. Pt wants her brother to move from the family home. Tentative plan would be for pt to return to father's home as she cannot smoke cannabis in mother's partners home. Abilify 10 mg po 02/05 and with IM Maintena on 02/07. 02/05/21 Pt took initiative today to review meds and request changes from IM to PO to assist in her arms healing. Continue current plan of care. 02/06/21 Continue current plan of care 02/07/21 Abilify Maintena given Observe for adverse effects. 02/08/21 Continue current plan Pt considering a mood stabilizer for seizure mgt, headache mgt, mood-Will hold as Abilify is new. 02/09/21: Topiramate 25 mg daily Pt asks for second opinion regarding pituitary tumor Discharge planning. 02/10/21 Continue current plan. 02/11/21 No changes today in medications. Continue support, education, modulation work 02/12/21: Start trial of clonidine 0.1 mg BID, as pt is reporting urges to self harm, feeling triggered, has sx of PTSD. Reviewed risks and benefits. 02/13/21: Denies SE on clonidine, reports some improvement in sleep and hyperarousal, continues to endorse sx of PTSD. 02/14/21: Pt's appetite has improved somewhat and pt has been reporting benefit on medications, however says sleep was poor and she continues to endorse sx of PTSD. 02/15/21: Pt reports sx of PTSD, unclear if clonidine has been helpful. Encouraged pt to attend to ADLs. 02/16/21: Abilify 5 mg HS Depakote ER 250 mg HS For now, continue Topiramate-if Depakote is more effective, will taper. 02/17/21 Change Abilify to a.m. dosing Discontinue Topiramate Increase Depakote to ER 500 mg HS Seroquel 50 mg tid prn Lorazepam 1 mg po q4 hours prn anxiety, panic 02/18/21 Continue current plan. I spent minutes with the patient and/or on the patient floor today, greater than?50% of which was spent counseling/coordinating care. Patient educated on: therapeutic strategies Informed Consent: understands and further education needed Reason for contiued inpatient stay Substantial Risk for: harm to self, inability to function, rapid decompensation and med/psych decompensation
[2021-02-18 18:00] VITALS: BP 109/71; PULSE 81; RESP 18; TEMP 36.2; O2SAT 100
[2021-02-18] MEDS: Ondansetron ODT 8 MG TAB.RAPDIS TRANSLINGU (20:07)
[2021-02-18 20:08] VITALS: BP 121/73; PULSE 109
[2021-02-18] MEDS: Divalproex Sodium ER 500 MG TAB.ER.24H PO (20:09)
[2021-02-18] MEDS: hydrOXYzine HCL 50 MG TABLET PO (20:09)
[2021-02-19] MEDS: hydrOXYzine HCL 25 MG TABLET PO (00:42)
[2021-02-19 09:20] VITALS: BP 109/75; PULSE 91
[2021-02-19] MEDS: clonazePAM 0.5 MG TABLET PO ×2 (09:20→20:12)
[2021-02-19] MEDS: ARIPiprazole 5 MG TABLET PO (09:20)
[2021-02-19] MEDS: cloNIDine HCL 0.1 MG TABLET PO ×2 (09:20→20:12)
--- NOTE | 2021-02-19 16:32 | P.PNPSI_ITS ---
Subjective Subjective Date of Service: 02/19/21 Reason For Visit: Psychosis Subjective Notes: Conditional Voluntary Healthcare Proxy: No Guardianship: No Medical Problems Affecting Mental Status: No Interim History: Pt reporting no effects from medications, sleep is ~25 minutes per night, no change in headache pain. Reports GI sx are not as bad as when I first started taking meds-Zofran IM is helpful she reports. Pt discussed some of her interactions/conflicts with peers on the unit-as the unit has been high activity-she is astute, observant and accurate in her observations. Attempted to answer questions offer support. Discussion of Depakote titration. Labs 02/23/21. Tentative COVID booster 02/24/21. Medication Compliance: Yes Side effects from medications: No Attending Groups: Yes Review of Systems Acute medical concerns: No Medical Review of Systems: unchanged Review of Systems Reports behavioral changes Psychiatric: Reports abnormal sleep pattern, Reports anxiety, Reports behavioral changes, Reports change in appetite, Reports depression, Reports difficulty concentrating, Reports hopelessness, Reports irritability, Reports anhedonia, Reports mood swings and Reports suicidal ideation Mental Status Exam Mental Status Exam Patient Appearance: Appropriate Patient Orientation: Person, Place, Time and Situation Level of Consciousness: Awake and Alert Patient Behavior: Appropriate, Talkative, Cooperative and Good Eye Contact Mood Description: Anxious Affect Description: Anxious Patient Cognition Impaired: No Ability to Follow Directions: Good Speech Pattern: Spontaneous Speech Memory Description: Intact Hallucinations: None Delusions: Not Present Perceptual Disturbances: Depersonalization and Derealization Thought Process: Linear Thought Content: positive for Linear Depressive Symptoms: Increased Anxiety, Diff. Making Decisions and Thoughts of /Suicide Judgement: Fair Diagnostics Vital Signs (24Hr): Vital Signs - 24 hr 02/18/21 18:00 02/18/21 20:08 02/19/21 09:20 Temperature 97.1 F Pulse Rate 81 109 H 91 Respiratory Rate 18 Blood Pressure 109/71 121/73 109/75 Pulse Oximetry 100 Labs Results: 02/23/21 08:18 02/23/21 08:18 Imaging Radiology Impressions: ITS Impressions Head CT 01/25/21 11:49 IMPRESSION: 1. There are no acute intracranial bleeds or territorial infarcts. The study partially redemonstrates the fullness in the suprasellar cistern, better shown on the prior MRI scan. 2. There are no acute osseous or soft tissue abnormalities. Medications Medications Current Medications Al Hydroxide/Mg Hydroxide (Magnesium Hydrox/Alum Hydrox 30 Ml Oral.Susp) 30 ml PO Q6H PRN PRN Reason: Heartburn/Nausea Last Admin: 02/13/21 15:43 Dose: 30 ml Documented by: Aripiprazole (Aripiprazole 5 Mg Tablet) 5 mg PO DAILY FROILAN Last Admin: 02/19/21 09:20 Dose: 5 mg Documented by: Clonazepam (Clonazepam 0.5 Mg Tablet) 0.5 mg PO BID FROILAN Last Admin: 02/19/21 09:20 Dose: 0.5 mg Documented by: Clonidine HCl (Clonidine Hcl 0.1 Mg Tablet) 0.1 mg PO BID [facility]; Protocol Last Admin: 02/19/21 09:20 Dose: 0.1 mg Documented by: Divalproex Sodium (Divalproex Sodium Er 250 Mg Tab.Er.24h) 750 mg PO BEDTIME FROILAN Hydroxyzine HCl (Hydroxyzine Hcl 50 Mg Tablet) 50 mg PO BEDTIME FROILAN Last Admin: 02/18/21 20:09 Dose: 50 mg Documented by: Hydroxyzine HCl (Hydroxyzine Hcl 25 Mg Tablet) 25 mg PO TID PRN PRN Reason: anxiety Last Admin: 02/19/21 00:42 Dose: 25 mg Documented by: Lorazepam (Lorazepam 2 Mg/Ml Vial) 1 mg IM BID PRN PRN Reason: Seizure activity Last Admin: 02/11/21 22:11 Dose: 1 mg Documented by: Lorazepam (Lorazepam 1 Mg Tablet) 1 mg PO Q4H PRN PRN Reason: Anxiety Last Admin: 02/18/21 17:03 Dose: 1 mg Documented by: Magnesium Hydroxide (Milk Of Magnesia 30 Ml Oral.Susp) 30 ml PO DAILY PRN PRN Reason: Constipation Ondansetron HCl (Ondansetron Odt 8 Mg Tab.Rapdis) 8 mg TRANSLINGU BEDTIME FROILAN Last Admin: 02/18/21 20:07 Dose: 8 mg Documented by: Ondansetron HCl (Ondansetron Odt 4 Mg Tab.Rapdis) 4 mg TRANSLINGU DAILY PRN PRN Reason: Nausea Last Admin: 02/10/21 09:29 Dose: 4 mg Documented by: Quetiapine Fumarate (Quetiapine Fumarate 50 Mg Tablet) 50 mg PO TID PRN PRN Reason: anxiety, insomnia Allergies Allergies Allergy/AdvReac Type Severity Reaction Status Date / Time metoclopramide [From Reglan] Allergy Muscle Verified 01/08/21 20:46 cramps haloperidol [From Haldol] AdvReac Severe Dystonia Verified 01/08/21 20:46 sucralfate [From Carafate] AdvReac Severe vomiting Verified 01/08/21 20:46 band-aids AdvReac Intermediate skin Uncoded 02/04/21 17:52 irritation Assessment & Plan Assessment & Plan (1) PTSD (post-traumatic stress disorder): Status: Acute Code(s): F43.10 - Post-traumatic stress disorder, unspecified (2) Schizoaffective disorder, bipolar type: Status: Acute Code(s): F25.0 - Schizoaffective disorder, bipolar type Assessment and Plan: 25 yo female returns to after extensive medical evaluation of seizure activity. 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 Pt also with inability to swallow medications due to nausea, vomiting, abdominal pain. GI testing is negative thus far. Discussed with Delaney the next step in her treatment. Discussed possible conversion reactions secondary to PTSD which she agrees is a strong possiblity. Asked if she would consider referral to [place] if we were able and she declined. She is willing to trial a new out pt therapist (female only) and will do a 14 day Abilify po trial with IM Zofran with the plan to transition to Maintena. Plan: 1. Ensure tid with meals-vanilla only. 2. Ativan 1 mg IM prn seizure activity 3. Zofran 4 mg IM HS prior to Abilify dosing 4. Abilify 10 mg HS. Weekend Coverage: 01/24- Pt continues to have episodes of pseudoseizures in the evening, appears to be responding well to IM hydroxyzine 50 mg at bedtime. Will continue abilify PO trial with IM zofran. 01/25- Will discontinue hydroxyzine PO PRN, as pt prefers IM due to reported GI distress. Discussed with primary provider and will start abilify maintena 300 mg AM. Pt denies adverse effects on PO abilify, tolerating it well. Continues to have pseudoseizure in evening. Discussed with hospitalist, who recommended temporary staff accountant contact hospitalist, direct pt to bed, and continue to use hydroxyzine IM PRN or ativan IM PRN for relief. 01/26/21 Tentative Abilify Maintena IM 300 mg for 01/27/21. Dr. Christensen to consult with pt on 01/27 as well. 01/27/21 Hold Abilify PRITCHETT today s/p seizure. 01/28/21 Discontinue Abilify Maintena Remeron 7.5 mg HS 01/29/21 Klonopin 0.5 mg HS Continue Mirtazapine 01/30/21 Increase Zofran to 8 mg IM HS-pt request as she is having GI distress with new medications. Continue Klonopin/Mirtazapine trial 01/31 and 02/01/21: Ct Rx plan 02/02/21: Ct. current plan. Seizure activity with clearer precipitants Family meeting with pt 02/04 to discuss Abilify Maintena Trial Will provide added educational material in terms of how Abilify may assist pt in symptom mgt. 02/03/21 Seizure activity present Family meeting 02/04/21 Continue current med regime 02/04/21 Family meeting to discuss discharge planning. Pt beginning to discuss her traumatic experience with her brother to her parents. Parents to discuss what their next step is. Pt wants her brother to move from the family home. Tentative plan would be for pt to return to father's home as she cannot smoke cannabis in mother's partners home. Abilify 10 mg po 02/05 and with IM Maintena on 02/07. 02/05/21 Pt took initiative today to review meds and request changes from IM to PO to assist in her arms healing. Continue current plan of care. 02/06/21 Continue current plan of care 02/07/21 Abilify Maintena given Observe for adverse effects. 02/08/21 Continue current plan Pt considering a mood stabilizer for seizure mgt, headache mgt, mood-Will hold as Abilify is new. 02/09/21: Topiramate 25 mg daily Pt asks for second opinion regarding pituitary tumor Discharge planning. 02/10/21 Continue current plan. 02/11/21 No changes today in medications. Continue support, education, modulation work 02/12/21: Start trial of clonidine 0.1 mg BID, as pt is reporting urges to self harm, feeling triggered, has sx of PTSD. Reviewed risks and benefits. 02/13/21: Denies SE on clonidine, reports some improvement in sleep and hyperarousal, continues to endorse sx of PTSD. 02/14/21: Pt's appetite has improved somewhat and pt has been reporting benefit on medications, however says sleep was poor and she continues to endorse sx of PTSD. 02/15/21: Pt reports sx of PTSD, unclear if clonidine has been helpful. Encouraged pt to attend to ADLs. 02/16/21: Abilify 5 mg HS Depakote ER 250 mg HS For now, continue Topiramate-if Depakote is more effective, will taper. 02/17/21 Change Abilify to a.m. dosing Discontinue Topiramate Increase Depakote to ER 500 mg HS Seroquel 50 mg tid prn Lorazepam 1 mg po q4 hours prn anxiety, panic 02/18/21 Continue current plan. 02/19/21 Pt reports no relief from headache nor increase in sleep. Discussed titration of Depakote to 750 mg with labs on 02/23/21-valproate, cbcd, chemp. Tentative COVID vaccine 02/24/21. I spent minutes with the patient and/or on the patient floor today, greater than?50% of which was spent counseling/coordinating care. Reason for contiued inpatient stay Substantial Risk for: harm to self, inability to function, rapid decompensation and med/psych decompensation
[2021-02-19 18:00] VITALS: BP 106/63; PULSE 79; TEMP 37.1; O2SAT 100
[2021-02-19] MEDS: Ondansetron ODT 8 MG TAB.RAPDIS TRANSLINGU (20:09)
[2021-02-19 20:12] VITALS: BP 105/57; PULSE 80
[2021-02-19] MEDS: hydrOXYzine HCL 50 MG TABLET PO (20:12)
[2021-02-19] MEDS: Divalproex Sodium ER 250 MG TAB.ER.24H 750 MG PO (20:12)
[2021-02-19] MEDS: LORazepam 1 MG TABLET PO (20:14)
[2021-02-19] MEDS: QUEtiapine Fumarate 50 MG TABLET PO (22:32)
[2021-02-20] MEDS: hydrOXYzine HCL 50 MG TABLET PO ×2 (00:07→20:32)
[2021-02-20] MEDS: LORazepam 1 MG TABLET PO ×2 (00:07→18:52)
[2021-02-20 08:37] VITALS: BP 110/56; PULSE 81; RESP 14; TEMP 36; O2SAT 100
[2021-02-20 09:24] VITALS: BP 114/60; PULSE 83
[2021-02-20] MEDS: ARIPiprazole 5 MG TABLET PO (09:24)
[2021-02-20] MEDS: clonazePAM 0.5 MG TABLET PO ×2 (09:24→20:33)
[2021-02-20] MEDS: cloNIDine HCL 0.1 MG TABLET PO ×2 (09:24→20:33)
--- NOTE | 2021-02-20 11:10 | HO.PSYCHPN ---
Subjective Subjective Date of Service: 02/20/21 Reason For Visit: Psychosis Subjective Notes: Conditional Voluntary Interim History: Pt reporting no change from medications, sleep is still poor sleeping approximately 30 minutes per night, no change in headache pain. Reports GI sx improved. Pt has psuedo seizure 2 days ago but none today. less conflict with others on unit. Labs 02/23/21. Tentative COVID booster 02/24/21. Medication Compliance: Yes Side effects from medications: Yes (? headache) Attending Groups: No Review of Systems Acute medical concerns: No Medical Review of Systems: unchanged Review of Systems Review of Systems unchanged Constitutional: Reports headache(s) Reports headache(s) Reports behavioral changes, Reports headache(s) and Reports seizure-like activity (medical/neuro team report non-epileptic activity) Psychiatric: Reports abnormal sleep pattern, Reports anxiety, Reports behavioral changes, Reports change in appetite, Reports depression, Reports difficulty concentrating, Reports hopelessness, Reports irritability, Reports anhedonia, Reports mood swings, Reports paranoia, Reports suicidal ideation and Reports other (pseudoseizure) Mental Status Exam Mental Status Exam Narrative: Patient Appearance:?Appropriate Patient Orientation:?Person, Place, Time and Situation Level of Consciousness:?Alert Patient Behavior:?Talkative, Anxious and Good Eye Contact Mood Description:?Anxious, Labile and Apprehensive Affect Description:?Labile Patient Cognition Impaired:?No Ability to Follow Directions:?Good Speech Pattern:?Spontaneous Speech Memory Description:?Episodic Impaired Hallucinations:?None Delusions:?Paranoid Ideation Perceptual Disturbances:?Depersonalization and Derealization Thought Process:?Distracted and Rumination Thought Content:?positive for Circumstantial Depressive Symptoms:?Increased Anxiety, Diff. Making Decisions, Increased Irritability, Hopelessness, Unhappiness and Difficulty Concentrating Judgement:?Fair Patient Cognition Impaired: No Diagnostics Vital Signs (24Hr): Vital Signs - 24 hr 02/19/21 18:00 02/19/21 20:12 02/20/21 08:37 Temperature 98.7 F 96.8 F Pulse Rate 79 80 81 Respiratory Rate 14 Blood Pressure 106/63 105/57 L 110/56 L Pulse Oximetry 100 100 02/20/21 09:24 Temperature Pulse Rate 83 Respiratory Rate Blood Pressure 114/60 Pulse Oximetry Imaging Radiology Impressions: ITS Impressions Head CT 01/25/21 11:49 IMPRESSION: 1. There are no acute intracranial bleeds or territorial infarcts. The study partially redemonstrates the fullness in the suprasellar cistern, better shown on the prior MRI scan. 2. There are no acute osseous or soft tissue abnormalities. Medications Medications Current Medications Al Hydroxide/Mg Hydroxide (Magnesium Hydrox/Alum Hydrox 30 Ml Oral.Susp) 30 ml PO Q6H PRN PRN Reason: Heartburn/Nausea Last Admin: 02/13/21 15:43 Dose: 30 ml Documented by: Aripiprazole (Aripiprazole 5 Mg Tablet) 5 mg PO DAILY FROILAN Last Admin: 02/20/21 09:24 Dose: 5 mg Documented by: Clonazepam (Clonazepam 0.5 Mg Tablet) 0.5 mg PO BID FROILAN Last Admin: 02/20/21 09:24 Dose: 0.5 mg Documented by: Clonidine HCl (Clonidine Hcl 0.1 Mg Tablet) 0.1 mg PO BID FROILAN; Protocol Last Admin: 02/20/21 09:24 Dose: 0.1 mg Documented by: Divalproex Sodium (Divalproex Sodium Er 250 Mg Tab.Er.24h) 750 mg PO BEDTIME FROILAN Last Admin: 02/19/21 20:12 Dose: 750 mg Documented by: Hydroxyzine HCl (Hydroxyzine Hcl 50 Mg Tablet) 50 mg PO BEDTIME FROILAN Last Admin: 02/20/21 00:07 Dose: 50 mg Documented by: Hydroxyzine HCl (Hydroxyzine Hcl 25 Mg Tablet) 25 mg PO TID PRN PRN Reason: anxiety Last Admin: 02/19/21 00:42 Dose: 25 mg Documented by: Lorazepam (Lorazepam 2 Mg/Ml Vial) 1 mg IM BID PRN PRN Reason: Seizure activity Last Admin: 02/11/21 22:11 Dose: 1 mg Documented by: Lorazepam (Lorazepam 1 Mg Tablet) 1 mg PO Q4H PRN PRN Reason: Anxiety Last Admin: 02/20/21 00:07 Dose: 1 mg Documented by: Magnesium Hydroxide (Milk Of Magnesia 30 Ml Oral.Susp) 30 ml PO DAILY PRN PRN Reason: Constipation Ondansetron HCl (Ondansetron Odt 8 Mg Tab.Rapdis) 8 mg TRANSLINGU BEDTIME FROILAN Last Admin: 02/19/21 20:09 Dose: 8 mg Documented by: Ondansetron HCl (Ondansetron Odt 4 Mg Tab.Rapdis) 4 mg TRANSLINGU DAILY PRN PRN Reason: Nausea Last Admin: 02/10/21 09:29 Dose: 4 mg Documented by: Quetiapine Fumarate (Quetiapine Fumarate 50 Mg Tablet) 50 mg PO TID PRN PRN Reason: anxiety, insomnia Last Admin: 02/19/21 22:32 Dose: 50 mg Documented by: Allergies Allergies Allergy/AdvReac Type Severity Reaction Status Date / Time metoclopramide [From Reglan] Allergy Muscle Verified 01/08/21 20:46 cramps haloperidol [From Haldol] AdvReac Severe Dystonia Verified 01/08/21 20:46 sucralfate [From Carafate] AdvReac Severe vomiting Verified 01/08/21 20:46 band-aids AdvReac Intermediate skin Uncoded 02/04/21 17:52 irritation Assessment & Plan Assessment & Plan (1) PTSD (post-traumatic stress disorder): Status: Acute Code(s): F43.10 - Post-traumatic stress disorder, unspecified (2) Schizoaffective disorder, bipolar type: Status: Acute Code(s): F25.0 - Schizoaffective disorder, bipolar type Assessment and Plan: 25 yo female returns to after extensive medical evaluation of seizure activity. 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 Pt also with inability to swallow medications due to nausea, vomiting, abdominal pain. GI testing is negative thus far. Discussed with Delaney the next step in her treatment. Discussed possible conversion reactions secondary to PTSD which she agrees is a strong possiblity. Asked if she would consider referral to [place] if we were able and she declined. She is willing to trial a new out pt therapist (female only) and will do a 14 day Abilify po trial with IM Zofran with the plan to transition to [facility]. Plan: 1. Ensure tid with meals-vanilla only. 2. Ativan 1 mg IM prn seizure activity 3. Zofran 4 mg IM HS prior to Abilify dosing 4. Abilify 10 mg HS. Weekend Coverage: 01/24- Pt continues to have episodes of pseudoseizures in the evening, appears to be responding well to IM hydroxyzine 50 mg at bedtime. Will continue abilify PO trial with IM zofran. 01/25- Will discontinue hydroxyzine PO PRN, as pt prefers IM due to reported GI distress. Discussed with primary provider and will start abilify maintena 300 mg AM. Pt denies adverse effects on PO abilify, tolerating it well. Continues to have pseudoseizure in evening. Discussed with hospitalist, who recommended staff submarine warfare officer contact hospitalist, direct pt to bed, and continue to use hydroxyzine IM PRN or ativan IM PRN for relief. 01/26/21 Tentative Abilify Maintena IM 300 mg for 01/27/21. Dr. Christensen to consult with pt on 01/27 as well. 01/27/21 Hold Abilify PRITCHETT today s/p seizure. 01/28/21 Discontinue Abilify Maintena Remeron 7.5 mg HS 01/29/21 Klonopin 0.5 mg HS Continue Mirtazapine 01/30/21 Increase Zofran to 8 mg IM HS-pt request as she is having GI distress with new medications. Continue Klonopin/Mirtazapine trial 01/31 and 02/01/21: Ct Rx plan 02/02/21: Ct. current plan. Seizure activity with clearer precipitants Family meeting with pt 02/04 to discuss Abilify Maintena Trial Will provide added educational material in terms of how Abilify may assist pt in symptom mgt. 02/03/21 Seizure activity present Family meeting 02/04/21 Continue current med regime 02/04/21 Family meeting to discuss discharge planning. Pt beginning to discuss her traumatic experience with her brother to her parents. Parents to discuss what their next step is. Pt wants her brother to move from the family home. Tentative plan would be for pt to return to father's home as she cannot smoke cannabis in mother's partners home. Abilify 10 mg po 02/05 and with IM Maintena on 02/07. 02/05/21 Pt took initiative today to review meds and request changes from IM to PO to assist in her arms healing. Continue current plan of care. 02/06/21 Continue current plan of care 02/07/21 Abilify Maintena given Observe for adverse effects. 02/08/21 Continue current plan Pt considering a mood stabilizer for seizure mgt, headache mgt, mood-Will hold as Abilify is new. 02/09/21: Topiramate 25 mg daily Pt asks for second opinion regarding pituitary tumor Discharge planning. 02/10/21 Continue current plan. 02/11/21 No changes today in medications. Continue support, education, modulation work 02/12/21: Start trial of clonidine 0.1 mg BID, as pt is reporting urges to self harm, feeling triggered, has sx of PTSD. Reviewed risks and benefits. 02/13/21: Denies SE on clonidine, reports some improvement in sleep and hyperarousal, continues to endorse sx of PTSD. 02/14/21: Pt's appetite has improved somewhat and pt has been reporting benefit on medications, however says sleep was poor and she continues to endorse sx of PTSD. 02/15/21: Pt reports sx of PTSD, unclear if clonidine has been helpful. Encouraged pt to attend to ADLs. 02/16/21: Abilify 5 mg HS Depakote ER 250 mg HS For now, continue Topiramate-if Depakote is more effective, will taper. 02/17/21 Change Abilify to a.m. dosing Discontinue Topiramate Increase Depakote to ER 500 mg HS Seroquel 50 mg tid prn Lorazepam 1 mg po q4 hours prn anxiety, panic 02/18/21 Continue current plan. 02/19/21 Pt reports no relief from headache nor increase in sleep. Discussed titration of Depakote to 750 mg with labs on 02/23/21-valproate, cbcd, chemp. Tentative COVID vaccine 02/24/21. 02/20/21- continue with current plan I spent minutes with the patient and/or on the patient floor today, greater than?50% of which was spent counseling/coordinating care. Reason for contiued inpatient stay Substantial Risk for: inability to function and rapid decompensation
[2021-02-20 18:05] VITALS: BP 108/64; PULSE 100; RESP 16; TEMP 36.7; O2SAT 100
[2021-02-20] MEDS: Ondansetron ODT 8 MG TAB.RAPDIS TRANSLINGU (20:32)
[2021-02-20] MEDS: Divalproex Sodium ER 250 MG TAB.ER.24H 750 MG PO (20:32)
[2021-02-20 20:33] VITALS: BP 107/59; PULSE 88
[2021-02-20] MEDS: QUEtiapine Fumarate 50 MG TABLET PO (20:33)
[2021-02-21] MEDS: LORazepam 1 MG TABLET PO ×2 (00:08→22:00)
[2021-02-21] MEDS: hydrOXYzine HCL 25 MG TABLET PO (00:08)
[2021-02-21 08:59] VITALS: BP 105/82; PULSE 93
[2021-02-21] MEDS: ARIPiprazole 5 MG TABLET PO (08:59)
[2021-02-21] MEDS: clonazePAM 0.5 MG TABLET PO ×2 (08:59→21:58)
[2021-02-21] MEDS: cloNIDine HCL 0.1 MG TABLET PO ×2 (08:59→21:58)
[2021-02-21 16:00] VITALS: BP 109/66; PULSE 86; TEMP 36.4; O2SAT 99
--- NOTE | 2021-02-21 18:52 | P.PNPSI_ITS ---
Subjective Subjective Date of Service: 02/21/21 Reason For Visit: Psychosis Interim History: pt brighter affect. less irritable; subjectively reporting she feels no different but appears brighter and calmer. Medication Compliance: Yes Side effects from medications: No Review of Systems Acute medical concerns: No Medical Review of Systems: unchanged Review of Systems Review of Systems unchanged Constitutional: Reports headache(s) Reports headache(s) Reports behavioral changes, Reports headache(s) and Reports seizure-like activity (medical/neuro team report non-epileptic activity) Psychiatric: Reports abnormal sleep pattern, Reports anxiety, Reports behavioral changes, Reports change in appetite, Reports depression, Reports difficulty concentrating, Reports hopelessness, Reports irritability, Reports anhedonia, Reports mood swings, Reports paranoia, Reports suicidal ideation and Reports other (pseudoseizure) Mental Status Exam Mental Status Exam Patient Appearance: Appropriate Patient Orientation: Person, Place, Time and Situation Level of Consciousness: Awake and Alert Patient Behavior: Appropriate, Talkative, Cooperative and Good Eye Contact Mood Description: Calm and Cheerful (slightly more content) Affect Description: Happy (slightly more content) and Relaxed Patient Cognition Impaired: No Ability to Follow Directions: Good Speech Pattern: Spontaneous Speech Memory Description: Intact Judgement: Good Diagnostics Vital Signs (24Hr): Vital Signs - 24 hr 02/20/21 20:33 02/21/21 08:59 02/21/21 16:00 Temperature 97.6 F Pulse Rate 88 93 86 Blood Pressure 107/59 L 105/82 109/66 Pulse Oximetry 99 Imaging Radiology Impressions: ITS Impressions Head CT 01/25/21 11:49 IMPRESSION: 1. There are no acute intracranial bleeds or territorial infarcts. The study partially redemonstrates the fullness in the suprasellar cistern, better shown on the prior MRI scan. 2. There are no acute osseous or soft tissue abnormalities. Medications Medications Current Medications Al Hydroxide/Mg Hydroxide (Magnesium Hydrox/Alum Hydrox 30 Ml Oral.Susp) 30 ml PO Q6H PRN PRN Reason: Heartburn/Nausea Last Admin: 02/13/21 15:43 Dose: 30 ml Documented by: Aripiprazole (Aripiprazole 5 Mg Tablet) 5 mg PO DAILY [facility] Last Admin: 02/21/21 08:59 Dose: 5 mg Documented by: Clonazepam (Clonazepam 0.5 Mg Tablet) 0.5 mg PO BID [facility] Last Admin: 02/21/21 08:59 Dose: 0.5 mg Documented by: Clonidine HCl (Clonidine Hcl 0.1 Mg Tablet) 0.1 mg PO BID [facility]; Protocol Last Admin: 02/21/21 08:59 Dose: 0.1 mg Documented by: Divalproex Sodium (Divalproex Sodium Er 250 Mg Tab.Er.24h) 750 mg PO BEDTIME [facility] Last Admin: 02/20/21 20:32 Dose: 750 mg Documented by: Hydroxyzine HCl (Hydroxyzine Hcl 50 Mg Tablet) 50 mg PO BEDTIME [facility] Last Admin: 02/20/21 20:32 Dose: 50 mg Documented by: Hydroxyzine HCl (Hydroxyzine Hcl 25 Mg Tablet) 25 mg PO TID PRN PRN Reason: anxiety Last Admin: 02/21/21 00:08 Dose: 25 mg Documented by: Lorazepam (Lorazepam 2 Mg/Ml Vial) 1 mg IM BID PRN PRN Reason: Seizure activity Last Admin: 02/11/21 22:11 Dose: 1 mg Documented by: Lorazepam (Lorazepam 1 Mg Tablet) 1 mg PO Q4H PRN PRN Reason: Anxiety Last Admin: 02/21/21 00:08 Dose: 1 mg Documented by: Magnesium Hydroxide (Milk Of Magnesia 30 Ml Oral.Susp) 30 ml PO DAILY PRN PRN Reason: Constipation Ondansetron HCl (Ondansetron Odt 8 Mg Tab.Rapdis) 8 mg TRANSLINGU BEDTIME [facility] Last Admin: 02/20/21 20:32 Dose: 8 mg Documented by: Ondansetron HCl (Ondansetron Odt 4 Mg Tab.Rapdis) 4 mg TRANSLINGU DAILY PRN PRN Reason: Nausea Last Admin: 02/10/21 09:29 Dose: 4 mg Documented by: Quetiapine Fumarate (Quetiapine Fumarate 50 Mg Tablet) 50 mg PO TID PRN PRN Reason: anxiety, insomnia Last Admin: 02/20/21 20:33 Dose: 50 mg Documented by: Allergies Allergies Allergy/AdvReac Type Severity Reaction Status Date / Time metoclopramide [From Reglan] Allergy Muscle Verified 01/08/21 20:46 cramps haloperidol [From Haldol] AdvReac Severe Dystonia Verified 01/08/21 20:46 sucralfate [From Carafate] AdvReac Severe vomiting Verified 01/08/21 20:46 band-aids AdvReac Intermediate skin Uncoded 02/04/21 17:52 irritation Assessment & Plan Assessment & Plan (1) PTSD (post-traumatic stress disorder): Status: Acute Code(s): F43.10 - Post-traumatic stress disorder, unspecified (2) Schizoaffective disorder, bipolar type: Status: Acute Code(s): F25.0 - Schizoaffective disorder, bipolar type Assessment and Plan: 25 yo female returns to after extensive medical evaluation of seizure activity. 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 Pt also with inability to swallow medications due to nausea, vomiting, abdominal pain. GI testing is negative thus far. Discussed with Delaney the next step in her treatment. Discussed possible conversion reactions secondary to PTSD which she agrees is a strong possiblity. Asked if she would consider referral to [facility] if we were able and she declined. She is willing to trial a new out pt therapist (female only) and will do a 14 day Abilify po trial with IM Zofran with the plan to transition to Maintena. Plan: 1. Ensure tid with meals-vanilla only. 2. Ativan 1 mg IM prn seizure activity 3. Zofran 4 mg IM HS prior to Abilify dosing 4. Abilify 10 mg HS. Weekend Coverage: 01/24- Pt continues to have episodes of pseudoseizures in the evening, appears to be responding well to IM hydroxyzine 50 mg at bedtime. Will continue abilify PO trial with IM zofran. 01/25- Will discontinue hydroxyzine PO PRN, as pt prefers IM due to reported GI distress. Discussed with primary provider and will start abilify maintena 300 mg AM. Pt denies adverse effects on PO abilify, tolerating it well. Continues to have pseudoseizure in evening. Discussed with hospitalist, who recommended staff readiness officer contact hospitalist, direct pt to bed, and continue to use hydroxyzine IM PRN or ativan IM PRN for relief. 01/26/21 Tentative Abilify Maintena IM 300 mg for 01/27/21. Dr. Christensen to consult with pt on 01/27 as well. 01/27/21 Hold Abilify PRITCHETT today s/p seizure. 01/28/21 Discontinue Abilify Maintena Remeron 7.5 mg HS 01/29/21 Klonopin 0.5 mg HS Continue Mirtazapine 01/30/21 Increase Zofran to 8 mg IM HS-pt request as she is having GI distress with new medications. Continue Klonopin/Mirtazapine trial 01/31 and 02/01/21: Ct Rx plan 02/02/21: Ct. current plan. Seizure activity with clearer precipitants Family meeting with pt 02/04 to discuss Abilify Maintena Trial Will provide added educational material in terms of how Abilify may assist pt in symptom mgt. 02/03/21 Seizure activity present Family meeting 02/04/21 Continue current med regime 02/04/21 Family meeting to discuss discharge planning. Pt beginning to discuss her traumatic experience with her brother to her parents. Parents to discuss what their next step is. Pt wants her brother to move from the family home. Tentative plan would be for pt to return to father's home as she cannot smoke cannabis in mother's partners home. Abilify 10 mg po 02/05 and with IM Maintena on 02/07. 02/05/21 Pt took initiative today to review meds and request changes from IM to PO to assist in her arms healing. Continue current plan of care. 02/06/21 Continue current plan of care 02/07/21 Abilify Maintena given Observe for adverse effects. 02/08/21 Continue current plan Pt considering a mood stabilizer for seizure mgt, headache mgt, mood-Will hold as Abilify is new. 02/09/21: Topiramate 25 mg daily Pt asks for second opinion regarding pituitary tumor Discharge planning. 02/10/21 Continue current plan. 02/11/21 No changes today in medications. Continue support, education, modulation work 02/12/21: Start trial of clonidine 0.1 mg BID, as pt is reporting urges to self harm, feeling triggered, has sx of PTSD. Reviewed risks and benefits. 02/13/21: Denies SE on clonidine, reports some improvement in sleep and hyperarousal, continues to endorse sx of PTSD. 02/14/21: Pt's appetite has improved somewhat and pt has been reporting benefit on medications, however says sleep was poor and she continues to endorse sx of PTSD. 02/15/21: Pt reports sx of PTSD, unclear if clonidine has been helpful. Encouraged pt to attend to ADLs. 02/16/21: Abilify 5 mg HS Depakote ER 250 mg HS For now, continue Topiramate-if Depakote is more effective, will taper. 02/17/21 Change Abilify to a.m. dosing Discontinue Topiramate Increase Depakote to ER 500 mg HS Seroquel 50 mg tid prn Lorazepam 1 mg po q4 hours prn anxiety, panic 02/18/21 Continue current plan. 02/19/21 Pt reports no relief from headache nor increase in sleep. Discussed titration of Depakote to 750 mg with labs on 02/23/21-valproate, cbcd, chemp. Tentative COVID vaccine 02/24/21. 02/20/21- continue with current plan 02/21/21 continue with current treatment plan I spent minutes with the patient and/or on the patient floor today, greater than?50% of which was spent counseling/coordinating care. Reason for contiued inpatient stay Substantial Risk for: harm to self, inability to function and rapid decompensation
[2021-02-21] MEDS: Ondansetron ODT 8 MG TAB.RAPDIS TRANSLINGU (21:36)
[2021-02-21] MEDS: Divalproex Sodium ER 250 MG TAB.ER.24H 750 MG PO (21:57)
[2021-02-21 21:58] VITALS: BP 115/78; PULSE 91
[2021-02-21] MEDS: hydrOXYzine HCL 50 MG TABLET PO (22:01)
[2021-02-22] MEDS: QUEtiapine Fumarate 50 MG TABLET PO ×2 (00:32→22:43)
[2021-02-22 06:00] VITALS: BP 107/57; PULSE 94; RESP 16; TEMP 36.6; O2SAT 99
[2021-02-22 09:31] VITALS: BP 107/57; PULSE 94
[2021-02-22] MEDS: clonazePAM 0.5 MG TABLET PO ×2 (09:31→22:43)
[2021-02-22] MEDS: ARIPiprazole 5 MG TABLET PO (09:31)
[2021-02-22] MEDS: cloNIDine HCL 0.1 MG TABLET PO ×2 (09:31→22:42)
--- NOTE | 2021-02-22 10:38 | P.PNPSI_ITS ---
Subjective Subjective Date of Service: 02/22/21 Reason For Visit: Psychosis Interim History: pt brighter affect. less irritable;anxious Medication Compliance: Yes Side effects from medications: No Attending Groups: Intermittent Review of Systems Acute medical concerns: No Medical Review of Systems: unchanged Review of Systems Review of Systems unchanged Constitutional: Reports headache(s) Reports headache(s) Reports behavioral changes, Reports headache(s) and Reports seizure-like activity (medical/neuro team report non-epileptic activity) Psychiatric: Reports abnormal sleep pattern, Reports anxiety, Reports behavioral changes, Reports change in appetite, Reports depression, Reports difficulty concentrating, Reports hopelessness, Reports irritability, Reports anhedonia, Reports mood swings, Reports paranoia, Reports suicidal ideation and Reports other (pseudoseizure) Mental Status Exam Mental Status Exam Narrative: Patient Appearance:?Appropriate Patient Orientation:?Person, Place, Time and Situation Level of Consciousness:?Alert Patient Behavior:?Talkative, Anxious and Good Eye Contact Mood Description:?Anxious, Labile and Apprehensive Affect Description:?Labile Patient Cognition Impaired:?No Ability to Follow Directions:?Good Speech Pattern:?Spontaneous Speech Memory Description:?Episodic Impaired Hallucinations:?None Delusions:?Paranoid Ideation Perceptual Disturbances:?Depersonalization and Derealization Thought Process:?Distracted and Rumination Thought Content:?positive for Circumstantial Depressive Symptoms:?Increased Anxiety, Diff. Making Decisions, Increased Irritability, Hopelessness, Unhappiness and Difficulty Concentrating Judgement:?Fair Patient Appearance: Appropriate Patient Orientation: Person, Place, Time and Situation Level of Consciousness: Awake and Alert Patient Behavior: Appropriate, Talkative, Cooperative and Good Eye Contact Mood Description: Calm and Cheerful (slightly more content) Affect Description: Happy (slightly more content) and Relaxed Patient Cognition Impaired: No Ability to Follow Directions: Good Speech Pattern: Spontaneous Speech Memory Description: Intact Judgement: Fair Diagnostics Vital Signs (24Hr): Vital Signs - 24 hr 02/21/21 16:00 02/21/21 21:58 02/22/21 06:00 Temperature 97.6 F 97.8 F Pulse Rate 86 91 94 Respiratory Rate 16 Blood Pressure 109/66 115/78 107/57 L Pulse Oximetry 99 99 02/22/21 09:31 Temperature Pulse Rate 94 Respiratory Rate Blood Pressure 107/57 L Pulse Oximetry Imaging Radiology Impressions: ITS Impressions Head CT 01/25/21 11:49 IMPRESSION: 1. There are no acute intracranial bleeds or territorial infarcts. The study partially redemonstrates the fullness in the suprasellar cistern, better shown on the prior MRI scan. 2. There are no acute osseous or soft tissue abnormalities. Medications Medications Current Medications Al Hydroxide/Mg Hydroxide (Magnesium Hydrox/Alum Hydrox 30 Ml Oral.Susp) 30 ml PO Q6H PRN PRN Reason: Heartburn/Nausea Last Admin: 02/13/21 15:43 Dose: 30 ml Documented by: Aripiprazole (Aripiprazole 5 Mg Tablet) 5 mg PO DAILY [facility] Last Admin: 02/22/21 09:31 Dose: 5 mg Documented by: Clonazepam (Clonazepam 0.5 Mg Tablet) 0.5 mg PO BID [facility] Last Admin: 02/22/21 09:31 Dose: 0.5 mg Documented by: Clonidine HCl (Clonidine Hcl 0.1 Mg Tablet) 0.1 mg PO BID [facility]; Protocol Last Admin: 02/22/21 09:31 Dose: 0.1 mg Documented by: Divalproex Sodium (Divalproex Sodium Er 250 Mg Tab.Er.24h) 750 mg PO BEDTIME [facility] Last Admin: 02/21/21 21:57 Dose: 750 mg Documented by: Hydroxyzine HCl (Hydroxyzine Hcl 50 Mg Tablet) 50 mg PO BEDTIME [facility] Last Admin: 02/21/21 22:01 Dose: 50 mg Documented by: Hydroxyzine HCl (Hydroxyzine Hcl 25 Mg Tablet) 25 mg PO TID PRN PRN Reason: anxiety Last Admin: 02/21/21 00:08 Dose: 25 mg Documented by: Lorazepam (Lorazepam 2 Mg/Ml Vial) 1 mg IM BID PRN PRN Reason: Seizure activity Last Admin: 02/11/21 22:11 Dose: 1 mg Documented by: Lorazepam (Lorazepam 1 Mg Tablet) 1 mg PO Q4H PRN PRN Reason: Anxiety Last Admin: 02/21/21 22:00 Dose: 1 mg Documented by: Magnesium Hydroxide (Milk Of Magnesia 30 Ml Oral.Susp) 30 ml PO DAILY PRN PRN Reason: Constipation Ondansetron HCl (Ondansetron Odt 8 Mg Tab.Rapdis) 8 mg TRANSLINGU BEDTIME [facility] Last Admin: 02/21/21 21:36 Dose: 8 mg Documented by: Ondansetron HCl (Ondansetron Odt 4 Mg Tab.Rapdis) 4 mg TRANSLINGU DAILY PRN PRN Reason: Nausea Last Admin: 02/10/21 09:29 Dose: 4 mg Documented by: Quetiapine Fumarate (Quetiapine Fumarate 50 Mg Tablet) 50 mg PO TID PRN PRN Reason: anxiety, insomnia Last Admin: 02/22/21 00:32 Dose: 50 mg Documented by: Allergies Allergies Allergy/AdvReac Type Severity Reaction Status Date / Time metoclopramide [From Reglan] Allergy Muscle Verified 01/08/21 20:46 cramps haloperidol [From Haldol] AdvReac Severe Dystonia Verified 01/08/21 20:46 sucralfate [From Carafate] AdvReac Severe vomiting Verified 01/08/21 20:46 band-aids AdvReac Intermediate skin Uncoded 02/04/21 17:52 irritation Assessment & Plan Assessment & Plan (1) PTSD (post-traumatic stress disorder): Status: Acute Code(s): F43.10 - Post-traumatic stress disorder, unspecified (2) Schizoaffective disorder, bipolar type: Status: Acute Code(s): F25.0 - Schizoaffective disorder, bipolar type Assessment and Plan: 25 yo female returns to after extensive medical evaluation of seizure activity. 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 Pt also with inability to swallow medications due to nausea, vomiting, abdominal pain. GI testing is negative thus far. Discussed with Delaney the next step in her treatment. Discussed possible conversion reactions secondary to PTSD which she agrees is a strong possiblity. Asked if she would consider referral to [facility] if we were able and she declined. She is willing to trial a new out pt therapist (female only) and will do a 14 day Abilify po trial with IM Zofran with the plan to transition to [facility]. Plan: 1. Ensure tid with meals-vanilla only. 2. Ativan 1 mg IM prn seizure activity 3. Zofran 4 mg IM HS prior to Abilify dosing 4. Abilify 10 mg HS. Weekend Coverage: 01/24- Pt continues to have episodes of pseudoseizures in the evening, appears to be responding well to IM hydroxyzine 50 mg at bedtime. Will continue abilify PO trial with IM zofran. 01/25- Will discontinue hydroxyzine PO PRN, as pt prefers IM due to reported GI distress. Discussed with primary provider and will start abilify maintena 300 mg AM. Pt denies adverse effects on PO abilify, tolerating it well. Continues to have pseudoseizure in evening. Discussed with hospitalist, who recommended staff development educator contact hospitalist, direct pt to bed, and continue to use hydroxyzine IM PRN or ativan IM PRN for relief. 01/26/21 Tentative Abilify Maintena IM 300 mg for 01/27/21. Dr. Christensen to consult with pt on 01/27 as well. 01/27/21 Hold Abilify PRITCHETT today s/p seizure. 01/28/21 Discontinue Abilify Maintena Remeron 7.5 mg HS 01/29/21 Klonopin 0.5 mg HS Continue Mirtazapine 01/30/21 Increase Zofran to 8 mg IM HS-pt request as she is having GI distress with new medications. Continue Klonopin/Mirtazapine trial 01/31 and 02/01/21: Ct Rx plan 02/02/21: Ct. current plan. Seizure activity with clearer precipitants Family meeting with pt 02/04 to discuss Abilify Maintena Trial Will provide added educational material in terms of how Abilify may assist pt in symptom mgt. 02/03/21 Seizure activity present Family meeting 02/04/21 Continue current med regime 02/04/21 Family meeting to discuss discharge planning. Pt beginning to discuss her traumatic experience with her brother to her parents. Parents to discuss what their next step is. Pt wants her brother to move from the family home. Tentative plan would be for pt to return to father's home as she cannot smoke cannabis in mother's partners home. Abilify 10 mg po 02/05 and with IM Maintena on 02/07. 02/05/21 Pt took initiative today to review meds and request changes from IM to PO to assist in her arms healing. Continue current plan of care. 02/06/21 Continue current plan of care 02/07/21 Abilify Maintena given Observe for adverse effects. 02/08/21 Continue current plan Pt considering a mood stabilizer for seizure mgt, headache mgt, mood-Will hold as Abilify is new. 02/09/21: Topiramate 25 mg daily Pt asks for second opinion regarding pituitary tumor Discharge planning. 02/10/21 Continue current plan. 02/11/21 No changes today in medications. Continue support, education, modulation work 02/12/21: Start trial of clonidine 0.1 mg BID, as pt is reporting urges to self harm, feeling triggered, has sx of PTSD. Reviewed risks and benefits. 02/13/21: Denies SE on clonidine, reports some improvement in sleep and hyperarousal, continues to endorse sx of PTSD. 02/14/21: Pt's appetite has improved somewhat and pt has been reporting benefit on medications, however says sleep was poor and she continues to endorse sx of PTSD. 02/15/21: Pt reports sx of PTSD, unclear if clonidine has been helpful. Encouraged pt to attend to ADLs. 02/16/21: Abilify 5 mg HS Depakote ER 250 mg HS For now, continue Topiramate-if Depakote is more effective, will taper. 02/17/21 Change Abilify to a.m. dosing Discontinue Topiramate Increase Depakote to ER 500 mg HS Seroquel 50 mg tid prn Lorazepam 1 mg po q4 hours prn anxiety, panic 02/18/21 Continue current plan. 02/19/21 Pt reports no relief from headache nor increase in sleep. Discussed titration of Depakote to 750 mg with labs on 02/23/21-valproate, cbcd, chemp. Tentative COVID vaccine 02/24/21. 02/20/21- continue with current plan 02/21/21 continue with current treatment plan 02/22/21 continue current treatment plan - labs scheduled for 02/23 I spent minutes with the patient and/or on the patient floor today, greater than?50% of which was spent counseling/coordinating care. Reason for contiued inpatient stay Substantial Risk for: harm to self, inability to function and rapid decompensation
[2021-02-22 18:00] VITALS: BP 90/51; PULSE 78
[2021-02-22] MEDS: Ondansetron ODT 8 MG TAB.RAPDIS TRANSLINGU (21:25)
[2021-02-22 22:42] VITALS: BP 102/63; PULSE 87
[2021-02-22] MEDS: hydrOXYzine HCL 50 MG TABLET PO (22:43)
[2021-02-22] MEDS: Divalproex Sodium ER 250 MG TAB.ER.24H 750 MG PO (22:43)
[2021-02-23 05:35] VITALS: BP 102/54; PULSE 80; RESP 16; TEMP 36.4; O2SAT 100
[2021-02-23 08:23] LABS: MANUAL DIFF FLAG NO
[2021-02-23 08:26] LABS: Basophils Percent Auto 0.5 % (0-2); Eosinophils Absolute Auto 0.1 X10*3/uL (0.0-0.4); Eosinophils Percent Auto 1.8 % (0-4); Hematocrit 35.5 % (37.0-47.0); Hemoglobin 11.6 g/dl (12.0-16.0); Imm Gran Abs Auto 0.01 X10*3/uL (0.00-0.03); Imm Gran Pct Auto 0.3 % (0.0-0.4); Lymphocytes Absolute Auto 1.9 X10*3/uL (1.2-4.9); Lymphocytes Percent Auto 47.7 % (20-40); Mean Corpuscular HGB Conc 32.7 g/dl (31.0-35.0); Mean Corpuscular Hemoglobin 31.9 pg (27.0-33.0); Mean Corpuscular Volume 97.5 fL (80.0-98.0); Mean Platelet Volume 8.4 fL (9.4-12.3); Monocytes Absolute Auto 0.4 X10*3/uL (0.1-1.2); Monocytes Percent Auto 10.7 % (2-11); Neutrophils Absolute Auto 1.5 x10*3/uL (2.0-8.3); Platelet Count 456 X10*3/uL (160-400); Red Blood Count 3.64 X10*6/uL (4.20-5.50); Red Cell Distribution Width 12.7 % (11.0-16.0); White Blood Count 3.9 X10*3/uL (4.8-10.8)
[2021-02-23 08:44] LABS: Alanine Aminotransferase 11 U/L (0-31); Alkaline Phosphatase 69 U/L (39-117); Anion Gap 9 (12-20); Aspartate Amino Transferase 12 U/L (5-31); Bilirubin Total 0.3 mg/dL (0.0-1.0); Blood Urea Nitrogen 9 mg/dL (9-16); Calcium 9.3 mg/dL (8.4-10.2); Carbon Dioxide 31 mmol/L (22-29); Chloride 103 mmol/L (96-108); Estimated Glomerular Filt Rate > 60; Glucose Random 87 mg/dL (60-115); Potassium 4.6 mmol/L (3.3-5.1); Sodium 138 mmol/L (135-145); Total Protein 7.1 g/dL (6.5-8.0)
[2021-02-23 08:48] VITALS: BP 102/60; PULSE 100
[2021-02-23] MEDS: ARIPiprazole 5 MG TABLET PO (08:48)
[2021-02-23] MEDS: clonazePAM 0.5 MG TABLET PO ×2 (08:48→20:35)
[2021-02-23] MEDS: cloNIDine HCL 0.1 MG TABLET PO ×2 (08:48→20:35)
[2021-02-23 08:50] LABS: Valproate 76.8 mcg/mL (50.0-100.0)
[2021-02-23] MEDS: LORazepam 2 MG/ML VIAL 1 MG IM (18:33)
[2021-02-23] MEDS: Ondansetron ODT 8 MG TAB.RAPDIS TRANSLINGU (20:34)
[2021-02-23] MEDS: Divalproex Sodium ER 250 MG TAB.ER.24H 750 MG PO (20:35)
[2021-02-23] MEDS: hydrOXYzine HCL 50 MG TABLET PO (20:35)
[2021-02-23 20:41] VITALS: BP 119/75; PULSE 98; RESP 18; TEMP 36.7; O2SAT 100
[2021-02-23] MEDS: NeoMY/Polymyx/Bacit/Ointment 14 GM Tube TOPICAL (22:43)
[2021-02-24] MEDS: QUEtiapine Fumarate 25 MG TABLET 75 MG PO ×2 (00:28→23:35)
[2021-02-24 06:00] VITALS: BP 106/64; PULSE 76; RESP 17; TEMP 36; O2SAT 97
[2021-02-24] MEDS: cloNIDine HCL 0.1 MG TABLET PO ×2 (08:48→20:58)
[2021-02-24] MEDS: clonazePAM 0.5 MG TABLET PO ×2 (08:48→20:56)
[2021-02-24] MEDS: ARIPiprazole 5 MG TABLET PO (08:48)
--- NOTE | 2021-02-24 15:23 | HO.PSYCHPN ---
Subjective Subjective Date of Service: 02/23/21 Reason For Visit: Psychosis Subjective Notes: Conditional Voluntary Interim History: Reports insomnia, depression, flashbacks, nightmares. Reports SIBS (cutting) over the weekend with a staple. Superficial scratches on L forearm-neosporin ordered per pt request. Pt prepared for COVID vaccine ordered for 02/25/20. Discussed frustration with family and feeling not loved or cared for-reports father purchased a new vehicle however will not fund brother getting his own apartment so pt can return home feeling safe-interprets this action as not being cared about or valued. Medication Compliance: Yes Side effects from medications: No Attending Groups: Yes Review of Systems Acute medical concerns: No Medical Review of Systems: unchanged Review of Systems Psychiatric: Reports abnormal sleep pattern, Reports anxiety, Reports depression, Reports hopelessness, Reports irritability and Reports suicidal ideation Mental Status Exam Mental Status Exam Patient Appearance: Appropriate Patient Orientation: Person, Place, Time and Situation Level of Consciousness: Alert Patient Behavior: Talkative, Cooperative and Good Eye Contact Mood Description: Depressed Affect Description: Flat Patient Cognition Impaired: No Ability to Follow Directions: Good Speech Pattern: Spontaneous Speech Memory Description: Intact Hallucinations: None Delusions: Not Present Perceptual Disturbances: Depersonalization and Derealization Thought Process: Rumination Thought Content: positive for Circumstantial, positive for Perseveration and positive for Suicidal Ideation Depressive Symptoms: Increased Anxiety, Insomnia, Increased Irritability, Difficulty Sleeping, Hopelessness, Isolating-Friends/Family, Unhappiness, Increased Fatigue, Thoughts of /Suicide, Low Self Esteem, Loss of Energy and Difficulty Concentrating Judgement: Fair Diagnostics Vital Signs (24Hr): Vital Signs - 24 hr 02/23/21 20:41 02/24/21 06:00 Temperature 98.0 F 96.8 F Pulse Rate 98 76 Respiratory Rate 18 17 Blood Pressure 119/75 106/64 Pulse Oximetry 100 97 Labs Results: 02/23/21 08:18 02/23/21 08:18 Labs: Laboratory Results - last 48 hr 02/23/21 02/23/21 08:18 08:18 WBC 3.9 L RBC 3.64 L Hgb 11.6 L Hct 35.5 L MCV 97.5 MCH 31.9 MCHC 32.7 RDW 12.7 Plt Count 456 H D MPV 8.4 L Immature Gran % (Auto) 0.3 Neut % (Auto) 39.0 L Lymph % (Auto) 47.7 H [place] % (Auto) 10.7 Eos % (Auto) 1.8 Baso % (Auto) 0.5 Lymph # (Auto) 1.9 [place] # (Auto) 0.4 Eos # (Auto) 0.1 Baso # (Auto) 0.0 Abs Immat Gran (auto) 0.01 Absolute Neuts (auto) 1.5 L Absolute Nucleated RBC 0.000 Nucleated RBC % (auto) 0.0 Sodium 138 Potassium 4.6 Chloride 103 Carbon Dioxide 31 H Anion Gap 9 L BUN 9 Creatinine 0.80 Estim Creat Clear Calc TNP Estimated GFR > 60 Random Glucose 87 Calcium 9.3 D Total Bilirubin 0.3 AST 12 ALT 11 Alkaline Phosphatase 69 D Total Protein 7.1 Albumin 4.0 Valproic Acid 76.8 Imaging Radiology Impressions: ITS Impressions Head CT 01/25/21 11:49 IMPRESSION: 1. There are no acute intracranial bleeds or territorial infarcts. The study partially redemonstrates the fullness in the suprasellar cistern, better shown on the prior MRI scan. 2. There are no acute osseous or soft tissue abnormalities. Medications Medications Current Medications Al Hydroxide/Mg Hydroxide (Magnesium Hydrox/Alum Hydrox 30 Ml Oral.Susp) 30 ml PO Q6H PRN PRN Reason: Heartburn/Nausea Last Admin: 02/13/21 15:43 Dose: 30 ml Documented by: Aripiprazole (Aripiprazole 5 Mg Tablet) 5 mg PO DAILY [facility] Last Admin: 02/24/21 08:48 Dose: 5 mg Documented by: Clonazepam (Clonazepam 0.5 Mg Tablet) 0.5 mg PO BID [facility] Last Admin: 02/24/21 08:48 Dose: 0.5 mg Documented by: Clonidine HCl (Clonidine Hcl 0.1 Mg Tablet) 0.1 mg PO BID [facility]; Protocol Last Admin: 02/24/21 08:48 Dose: 0.1 mg Documented by: Divalproex Sodium (Divalproex Sodium Er 250 Mg Tab.Er.24h) 750 mg PO BEDTIME [facility] Last Admin: 02/23/21 20:35 Dose: 750 mg Documented by: Hydroxyzine HCl (Hydroxyzine Hcl 50 Mg Tablet) 50 mg PO BEDTIME [facility] Last Admin: 02/23/21 20:35 Dose: 50 mg Documented by: Hydroxyzine HCl (Hydroxyzine Hcl 25 Mg Tablet) 25 mg PO TID PRN PRN Reason: anxiety Last Admin: 02/21/21 00:08 Dose: 25 mg Documented by: Lorazepam (Lorazepam 2 Mg/Ml Vial) 1 mg IM BID PRN PRN Reason: Seizure activity Last Admin: 02/23/21 18:33 Dose: 1 mg Documented by: Lorazepam (Lorazepam 1 Mg Tablet) 1 mg PO Q4H PRN PRN Reason: Anxiety Last Admin: 02/21/21 22:00 Dose: 1 mg Documented by: Magnesium Hydroxide (Milk Of Magnesia 30 Ml Oral.Susp) 30 ml PO DAILY PRN PRN Reason: Constipation Neomycin/Polymyxin/Bacitracin (Neomy/Polymyx/Bacit/Ointment 14 Gm Tube) 1 gm TOPICAL BID [facility]; Protocol Last Admin: 02/24/21 09:07 Dose: Not Given Documented by: Ondansetron HCl (Ondansetron Odt 8 Mg Tab.Rapdis) 8 mg TRANSLINGU BEDTIME [facility] Last Admin: 02/23/21 20:34 Dose: 8 mg Documented by: Ondansetron HCl (Ondansetron Odt 4 Mg Tab.Rapdis) 4 mg TRANSLINGU DAILY PRN PRN Reason: Nausea Last Admin: 02/10/21 09:29 Dose: 4 mg Documented by: Quetiapine Fumarate (Quetiapine Fumarate 25 Mg Tablet) 75 mg PO BEDTIME PRN PRN Reason: insomnia Last Admin: 02/24/21 00:28 Dose: 75 mg Documented by: Allergies Allergies Allergy/AdvReac Type Severity Reaction Status Date / Time metoclopramide [From Reglan] Allergy Muscle Verified 01/08/21 20:46 cramps haloperidol [From Haldol] AdvReac Severe Dystonia Verified 01/08/21 20:46 sucralfate [From Carafate] AdvReac Severe vomiting Verified 01/08/21 20:46 band-aids AdvReac Intermediate skin Uncoded 02/04/21 17:52 irritation Assessment & Plan Assessment & Plan (1) PTSD (post-traumatic stress disorder): Status: Acute Code(s): F43.10 - Post-traumatic stress disorder, unspecified (2) Schizoaffective disorder, bipolar type: Status: Acute Code(s): F25.0 - Schizoaffective disorder, bipolar type Assessment and Plan: 25 yo female returns to after extensive medical evaluation of seizure activity. 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 Pt also with inability to swallow medications due to nausea, vomiting, abdominal pain. GI testing is negative thus far. Discussed with Delaney the next step in her treatment. Discussed possible conversion reactions secondary to PTSD which she agrees is a strong possiblity. Asked if she would consider referral to [place] if we were able and she declined. She is willing to trial a new out pt therapist (female only) and will do a 14 day Abilify po trial with IM Zofran with the plan to transition to Maintena. Plan: 1. Ensure tid with meals-vanilla only. 2. Ativan 1 mg IM prn seizure activity 3. Zofran 4 mg IM HS prior to Abilify dosing 4. Abilify 10 mg HS. Weekend Coverage: 01/24- Pt continues to have episodes of pseudoseizures in the evening, appears to be responding well to IM hydroxyzine 50 mg at bedtime. Will continue abilify PO trial with IM zofran. 01/25- Will discontinue hydroxyzine PO PRN, as pt prefers IM due to reported GI distress. Discussed with primary provider and will start abilify maintena 300 mg AM. Pt denies adverse effects on PO abilify, tolerating it well. Continues to have pseudoseizure in evening. Discussed with hospitalist, who recommended director of midwifery/staff midwife contact hospitalist, direct pt to bed, and continue to use hydroxyzine IM PRN or ativan IM PRN for relief. 01/26/21 Tentative Abilify Maintena IM 300 mg for 01/27/21. Dr. Christensen to consult with pt on 01/27 as well. 01/27/21 Hold Abilify PRITCHETT today s/p seizure. 01/28/21 Discontinue Abilify Maintena Remeron 7.5 mg HS 01/29/21 Klonopin 0.5 mg HS Continue Mirtazapine 01/30/21 Increase Zofran to 8 mg IM HS-pt request as she is having GI distress with new medications. Continue Klonopin/Mirtazapine trial 01/31 and 02/01/21: Ct Rx plan 02/02/21: Ct. current plan. Seizure activity with clearer precipitants Family meeting with pt 02/04 to discuss Abilify Maintena Trial Will provide added educational material in terms of how Abilify may assist pt in symptom mgt. 02/03/21 Seizure activity present Family meeting 02/04/21 Continue current med regime 02/04/21 Family meeting to discuss discharge planning. Pt beginning to discuss her traumatic experience with her brother to her parents. Parents to discuss what their next step is. Pt wants her brother to move from the family home. Tentative plan would be for pt to return to father's home as she cannot smoke cannabis in mother's partners home. Abilify 10 mg po 02/05 and with IM Maintena on 02/07. 02/05/21 Pt took initiative today to review meds and request changes from IM to PO to assist in her arms healing. Continue current plan of care. 02/06/21 Continue current plan of care 02/07/21 Abilify Maintena given Observe for adverse effects. 02/08/21 Continue current plan Pt considering a mood stabilizer for seizure mgt, headache mgt, mood-Will hold as Abilify is new. 02/09/21: Topiramate 25 mg daily Pt asks for second opinion regarding pituitary tumor Discharge planning. 02/10/21 Continue current plan. 02/11/21 No changes today in medications. Continue support, education, modulation work 02/12/21: Start trial of clonidine 0.1 mg BID, as pt is reporting urges to self harm, feeling triggered, has sx of PTSD. Reviewed risks and benefits. 02/13/21: Denies SE on clonidine, reports some improvement in sleep and hyperarousal, continues to endorse sx of PTSD. 02/14/21: Pt's appetite has improved somewhat and pt has been reporting benefit on medications, however says sleep was poor and she continues to endorse sx of PTSD. 02/15/21: Pt reports sx of PTSD, unclear if clonidine has been helpful. Encouraged pt to attend to ADLs. 02/16/21: Abilify 5 mg HS Depakote ER 250 mg HS For now, continue Topiramate-if Depakote is more effective, will taper. 02/17/21 Change Abilify to a.m. dosing Discontinue Topiramate Increase Depakote to ER 500 mg HS Seroquel 50 mg tid prn Lorazepam 1 mg po q4 hours prn anxiety, panic 02/18/21 Continue current plan. 02/19/21 Pt reports no relief from headache nor increase in sleep. Discussed titration of Depakote to 750 mg with labs on 02/23/21-valproate, cbcd, chemp. Tentative COVID vaccine 02/24/21. 02/23/21 Increase Seroquel to 75 mg HS as sleep remains disrupted Neosporin to superficial scratches COVID Booster 02/24/21. Transition to Respite when appropriate I spent 30 minutes with the patient and/or on the patient floor today, greater than?50% of which was spent counseling/coordinating care. Patient educated on: medication risk/benefits and therapeutic strategies Informed Consent: understands and further education needed Reason for contiued inpatient stay Substantial Risk for: harm to self, inability to function and rapid decompensation
[2021-02-24 18:00] VITALS: BP 129/63; PULSE 97; TEMP 36.7
[2021-02-24] MEDS: Ondansetron ODT 4 MG TAB.RAPDIS TRANSLINGU (18:18)
--- NOTE | 2021-02-24 20:06 | P.PNPSI_ITS ---
Subjective Subjective Date of Service: 02/24/21 Reason For Visit: Psychosis Subjective Notes: Conditional Voluntary Healthcare Proxy: No Guardianship: No Medical Problems Affecting Mental Status: No Interim History: Participating in [employer] Received COVID booster today Planning transition for respite. Medication Compliance: Yes Side effects from medications: No Attending Groups: Yes Review of Systems Acute medical concerns: No Medical Review of Systems: unchanged Review of Systems Psychiatric: Reports abnormal sleep pattern, Reports anxiety, Reports depression, Reports hopelessness, Reports irritability and Reports suicidal ideation Mental Status Exam Mental Status Exam Patient Appearance: Appropriate Patient Orientation: Person, Place, Time and Situation Level of Consciousness: Alert Patient Behavior: Talkative, Cooperative and Good Eye Contact Mood Description: Depressed Affect Description: Flat Patient Cognition Impaired: No Ability to Follow Directions: Good Speech Pattern: Spontaneous Speech Memory Description: Intact Hallucinations: None Delusions: Not Present Perceptual Disturbances: Depersonalization and Derealization Thought Process: Rumination Thought Content: positive for Circumstantial, positive for Perseveration and positive for Suicidal Ideation Depressive Symptoms: Increased Anxiety, Insomnia, Increased Irritability, Difficulty Sleeping, Hopelessness, Isolating-Friends/Family, Unhappiness, Increased Fatigue, Thoughts of /Suicide, Low Self Esteem, Loss of Energy and Difficulty Concentrating Judgement: Fair Diagnostics Vital Signs (24Hr): Vital Signs - 24 hr 02/23/21 20:41 02/24/21 06:00 02/24/21 18:00 Temperature 98.0 F 96.8 F 98.0 F Pulse Rate 98 76 97 Respiratory Rate 18 17 Blood Pressure 119/75 106/64 129/63 Pulse Oximetry 100 97 Labs Results: 02/23/21 08:18 02/23/21 08:18 Labs: Laboratory Results - last 48 hr 02/23/21 02/23/21 08:18 08:18 WBC 3.9 L RBC 3.64 L Hgb 11.6 L Hct 35.5 L MCV 97.5 MCH 31.9 MCHC 32.7 RDW 12.7 Plt Count 456 H D MPV 8.4 L Immature Gran % (Auto) 0.3 Neut % (Auto) 39.0 L Lymph % (Auto) 47.7 H [place] % (Auto) 10.7 Eos % (Auto) 1.8 Baso % (Auto) 0.5 Lymph # (Auto) 1.9 [place] # (Auto) 0.4 Eos # (Auto) 0.1 Baso # (Auto) 0.0 Abs Immat Gran (auto) 0.01 Absolute Neuts (auto) 1.5 L Absolute Nucleated RBC 0.000 Nucleated RBC % (auto) 0.0 Sodium 138 Potassium 4.6 Chloride 103 Carbon Dioxide 31 H Anion Gap 9 L BUN 9 Creatinine 0.80 Estim Creat Clear Calc TNP Estimated GFR > 60 Random Glucose 87 Calcium 9.3 D Total Bilirubin 0.3 AST 12 ALT 11 Alkaline Phosphatase 69 D Total Protein 7.1 Albumin 4.0 Valproic Acid 76.8 Imaging Radiology Impressions: ITS Impressions Head CT 01/25/21 11:49 IMPRESSION: 1. There are no acute intracranial bleeds or territorial infarcts. The study partially redemonstrates the fullness in the suprasellar cistern, better shown on the prior MRI scan. 2. There are no acute osseous or soft tissue abnormalities. Medications Medications Current Medications Al Hydroxide/Mg Hydroxide (Magnesium Hydrox/Alum Hydrox 30 Ml Oral.Susp) 30 ml PO Q6H PRN PRN Reason: Heartburn/Nausea Last Admin: 02/13/21 15:43 Dose: 30 ml Documented by: Aripiprazole (Aripiprazole 5 Mg Tablet) 5 mg PO DAILY [facility] Last Admin: 02/24/21 08:48 Dose: 5 mg Documented by: Clonazepam (Clonazepam 0.5 Mg Tablet) 0.5 mg PO BID [facility] Last Admin: 02/24/21 08:48 Dose: 0.5 mg Documented by: Clonidine HCl (Clonidine Hcl 0.1 Mg Tablet) 0.1 mg PO BID [facility]; Protocol Last Admin: 02/24/21 08:48 Dose: 0.1 mg Documented by: Divalproex Sodium (Divalproex Sodium Er 250 Mg Tab.Er.24h) 750 mg PO BEDTIME [facility] Last Admin: 02/23/21 20:35 Dose: 750 mg Documented by: Hydroxyzine HCl (Hydroxyzine Hcl 50 Mg Tablet) 50 mg PO BEDTIME [facility] Last Admin: 02/23/21 20:35 Dose: 50 mg Documented by: Hydroxyzine HCl (Hydroxyzine Hcl 25 Mg Tablet) 25 mg PO TID PRN PRN Reason: anxiety Last Admin: 02/21/21 00:08 Dose: 25 mg Documented by: Lorazepam (Lorazepam 2 Mg/Ml Vial) 1 mg IM BID PRN PRN Reason: Seizure activity Last Admin: 02/23/21 18:33 Dose: 1 mg Documented by: Lorazepam (Lorazepam 1 Mg Tablet) 1 mg PO Q4H PRN PRN Reason: Anxiety Last Admin: 02/21/21 22:00 Dose: 1 mg Documented by: Magnesium Hydroxide (Milk Of Magnesia 30 Ml Oral.Susp) 30 ml PO DAILY PRN PRN Reason: Constipation Neomycin/Polymyxin/Bacitracin (Neomy/Polymyx/Bacit/Ointment 14 Gm Tube) 1 gm TOPICAL BID [facility]; Protocol Last Admin: 02/24/21 09:07 Dose: Not Given Documented by: Ondansetron HCl (Ondansetron Odt 8 Mg Tab.Rapdis) 8 mg TRANSLINGU BEDTIME [facility] Last Admin: 02/23/21 20:34 Dose: 8 mg Documented by: Ondansetron HCl (Ondansetron Odt 4 Mg Tab.Rapdis) 4 mg TRANSLINGU DAILY PRN PRN Reason: Nausea Last Admin: 02/24/21 18:18 Dose: 4 mg Documented by: Quetiapine Fumarate (Quetiapine Fumarate 25 Mg Tablet) 75 mg PO BEDTIME PRN PRN Reason: insomnia Last Admin: 02/24/21 00:28 Dose: 75 mg Documented by: Allergies Allergies Allergy/AdvReac Type Severity Reaction Status Date / Time metoclopramide [From Reglan] Allergy Muscle Verified 01/08/21 20:46 cramps haloperidol [From Haldol] AdvReac Severe Dystonia Verified 01/08/21 20:46 sucralfate [From Carafate] AdvReac Severe vomiting Verified 01/08/21 20:46 band-aids AdvReac Intermediate skin Uncoded 02/04/21 17:52 irritation Assessment & Plan Assessment & Plan (1) PTSD (post-traumatic stress disorder): Status: Acute Code(s): F43.10 - Post-traumatic stress disorder, unspecified (2) Schizoaffective disorder, bipolar type: Status: Acute Code(s): F25.0 - Schizoaffective disorder, bipolar type Assessment and Plan: 25 yo female returns to after extensive medical evaluation of seizure activity. 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 Pt also with inability to swallow medications due to nausea, vomiting, abdominal pain. GI testing is negative thus far. Discussed with Delaney the next step in her treatment. Discussed possible conver cesar reactions secondary to PTSD which she agrees is a strong possiblity. Asked if she would consider referral to [place] if we were able and she declined. She is willing to trial a new out pt therapist (female only) and will do a 14 day Abilify po trial with IM Zofran with the plan to transition to Maintena. Plan: 1. Ensure tid with meals-vanilla only. 2. Ativan 1 mg IM prn seizure activity 3. Zofran 4 mg IM HS prior to Abilify dosing 4. Abilify 10 mg HS. Weekend Coverage: 01/24- Pt continues to have episodes of pseudoseizures in the evening, appears to be responding well to IM hydroxyzine 50 mg at bedtime. Will continue abilify PO trial with IM zofran. 01/25- Will discontinue hydroxyzine PO PRN, as pt prefers IM due to reported GI distress. Discussed with primary provider and will start abilify maintena 300 mg AM. Pt denies adverse effects on PO abilify, tolerating it well. Continues to have pseudoseizure in evening. Discussed with hospitalist, who recommended staff home therapy rn contact hospitalist, direct pt to bed, and continue to use hydroxyzine IM PRN or ativan IM PRN for relief. 01/26/21 Tentative Abilify Maintena IM 300 mg for 01/27/21. Dr. Christensen to consult with pt on 01/27 as well. 01/27/21 Hold Abilify PRITCHETT today s/p seizure. 01/28/21 Discontinue Abilify Maintena Remeron 7.5 mg HS 01/29/21 Klonopin 0.5 mg HS Continue Mirtazapine 01/30/21 Increase Zofran to 8 mg IM HS-pt request as she is having GI distress with new medications. Continue Klonopin/Mirtazapine trial 01/31 and 02/01/21: Ct Rx plan 02/02/21: Ct. current plan. Seizure activity with clearer precipitants Family meeting with pt 02/04 to discuss Abilify Maintena Trial Will provide added educational material in terms of how Abilify may assist pt in symptom mgt. 02/03/21 Seizure activity present Family meeting 02/04/21 Continue current med regime 02/04/21 Family meeting to discuss discharge planning. Pt beginning to discuss her traumatic experience with her brother to her parents. Parents to discuss what their next step is. Pt wants her brother to move from the family home. Tentative plan would be for pt to return to father's home as she cannot smoke cannabis in mother's partners home. Abilify 10 mg po 02/05 and with IM Maintena on 02/07. 02/05/21 Pt took initiative today to review meds and request changes from IM to PO to assist in her arms healing. Continue current plan of care. 02/06/21 Continue current plan of care 02/07/21 Abilify Maintena given Observe for adverse effects. 02/08/21 Continue current plan Pt considering a mood stabilizer for seizure mgt, headache mgt, mood-Will hold as Abilify is new. 02/09/21: Topiramate 25 mg daily Pt asks for second opinion regarding pituitary tumor Discharge planning. 02/10/21 Continue current plan. 02/11/21 No changes today in medications. Continue support, education, modulation work 02/12/21: Start trial of clonidine 0.1 mg BID, as pt is reporting urges to self harm, feeling triggered, has sx of PTSD. Reviewed risks and benefits. 02/13/21: Denies SE on clonidine, reports some improvement in sleep and hyperarousal, continues to endorse sx of PTSD. 02/14/21: Pt's appetite has improved somewhat and pt has been reporting benefit on medications, however says sleep was poor and she continues to endorse sx of PTSD. 02/15/21: Pt reports sx of PTSD, unclear if clonidine has been helpful. Encouraged pt to attend to ADLs. 02/16/21: Abilify 5 mg HS Depakote ER 250 mg HS For now, continue Topiramate-if Depakote is more effective, will taper. 02/17/21 Change Abilify to a.m. dosing Discontinue Topiramate Increase Depakote to ER 500 mg HS Seroquel 50 mg tid prn Lorazepam 1 mg po q4 hours prn anxiety, panic 02/18/21 Continue current plan. 02/19/21 Pt reports no relief from headache nor increase in sleep. Discussed titration of Depakote to 750 mg with labs on 02/23/21-valproate, cbcd, chemp. Tentative COVID vaccine 02/24/21. 02/24/21 Continue current plan Transition/discharge planning for tentative respite admission. I spent 30 minutes with the patient and/or on the patient floor today, greater than?50% of which was spent counseling/coordinating care. Patient educated on: therapeutic strategies Informed Consent: further education needed Reason for contiued inpatient stay Substantial Risk for: harm to self, inability to function and rapid decompensation
[2021-02-24] MEDS: hydrOXYzine HCL 50 MG TABLET PO (20:55)
[2021-02-24] MEDS: Divalproex Sodium ER 250 MG TAB.ER.24H 750 MG PO (20:56)
[2021-02-24] MEDS: Ondansetron ODT 8 MG TAB.RAPDIS TRANSLINGU (20:56)
[2021-02-24] MEDS: LORazepam 2 MG/ML VIAL 1 MG IM (23:53)
--- NOTE | 2021-02-25 00:37 | PC.NURSE ---
Addendum entered by Maryellen Briceño RN 02/25/21 00:55: Will continue to monitor throughout the night. Original Note: At approx. 2345 Pt had seizure activity while standing at the med room. She was given ativan at 2253 and transported to her room. Vitals taken 123/66, HR 78, Temp 98.9, 100%.
[2021-02-25 01:02] VITALS: BP 85/52; PULSE 78; RESP 16; TEMP 36.9; O2SAT 99
[2021-02-25] MEDS: hydrOXYzine HCL 25 MG TABLET PO (04:03)
[2021-02-25] MEDS: ARIPiprazole 5 MG TABLET PO (09:10)
[2021-02-25] MEDS: clonazePAM 0.5 MG TABLET PO ×2 (09:10→22:06)
[2021-02-25] MEDS: cloNIDine HCL 0.1 MG TABLET PO ×2 (09:10→22:08)
--- NOTE | 2021-02-25 16:50 | P.PNPSI_ITS ---
Subjective Subjective Date of Service: 02/25/21 Reason For Visit: Psychosis Subjective Notes: Conditional Voluntary Healthcare Proxy: No Guardianship: No Medical Problems Affecting Mental Status: No Interim History: Pt/team report seizure activity last evening-pt reports due to another pt screaming and rattling at her door handle in the late evening. Pt has had a GI response to COVID vaccine-did spend some time resting today but is feeling improved when we met mid afternoon. Review of medicines and efficacy. Seroquel not helpful-will return to Remeron and discontinue Seroquel-Remeron pt felt somewhat more helpful with sleep. Unsure about Depakote-no real change in headache mgt, some decrease in seizure activity however I think it has nothing to do with Depakote . Will continue to monitor-?Lamictal trial. Pt requests to be allowed to have her switch first thing in the a.m. as it decreased anxiety overall. Will discuss in team. Medication Compliance: Yes Side effects from medications: No Attending Groups: Yes Review of Systems Acute medical concerns: No Medical Review of Systems: unchanged Review of Systems Psychiatric: Reports abnormal sleep pattern, Reports anxiety, Reports depression, Reports hopelessness, Reports irritability and Reports suicidal ideation Mental Status Exam Mental Status Exam Patient Appearance: Appropriate Patient Orientation: Person, Place, Time and Situation Level of Consciousness: Alert Patient Behavior: Talkative, Cooperative and Good Eye Contact Mood Description: Depressed Affect Description: Flat Patient Cognition Impaired: No Ability to Follow Directions: Good Speech Pattern: Spontaneous Speech Memory Description: Intact Hallucinations: None Delusions: Not Present Perceptual Disturbances: Depersonalization and Derealization Thought Process: Rumination Thought Content: positive for Circumstantial, positive for Perseveration and positive for Suicidal Ideation Depressive Symptoms: Increased Anxiety, Insomnia, Increased Irritability, Difficulty Sleeping, Hopelessness, Isolating-Friends/Family, Unhappiness, Increased Fatigue, Thoughts of /Suicide, Low Self Esteem, Loss of Energy and Difficulty Concentrating Judgement: Fair Diagnostics Vital Signs (24Hr): Vital Signs - 24 hr 02/24/21 18:00 02/25/21 01:02 Temperature 98.0 F 98.4 F Pulse Rate 97 78 Respiratory Rate 16 Blood Pressure 129/63 85/52 L Pulse Oximetry 99 Labs Results: 02/23/21 08:18 02/23/21 08:18 Imaging Radiology Impressions: ITS Impressions Head CT 01/25/21 11:49 IMPRESSION: 1. There are no acute intracranial bleeds or territorial infarcts. The study partially redemonstrates the fullness in the suprasellar cistern, better shown on the prior MRI scan. 2. There are no acute osseous or soft tissue abnormalities. Medications Medications Current Medications Al Hydroxide/Mg Hydroxide (Magnesium Hydrox/Alum Hydrox 30 Ml Oral.Susp) 30 ml PO Q6H PRN PRN Reason: Heartburn/Nausea Last Admin: 02/13/21 15:43 Dose: 30 ml Documented by: Aripiprazole (Aripiprazole 5 Mg Tablet) 5 mg PO DAILY [facility] Last Admin: 02/25/21 09:10 Dose: 5 mg Documented by: Clonazepam (Clonazepam 0.5 Mg Tablet) 0.5 mg PO BID [facility] Last Admin: 02/25/21 09:10 Dose: 0.5 mg Documented by: Clonidine HCl (Clonidine Hcl 0.1 Mg Tablet) 0.1 mg PO BID [facility]; Protocol Last Admin: 02/25/21 09:10 Dose: 0.1 mg Documented by: Divalproex Sodium (Divalproex Sodium Er 250 Mg Tab.Er.24h) 750 mg PO BEDTIME [facility] Last Admin: 02/24/21 20:56 Dose: 750 mg Documented by: Hydroxyzine HCl (Hydroxyzine Hcl 50 Mg Tablet) 50 mg PO BEDTIME [facility] Last Admin: 02/24/21 20:55 Dose: 50 mg Documented by: Hydroxyzine HCl (Hydroxyzine Hcl 25 Mg Tablet) 25 mg PO TID PRN PRN Reason: anxiety Last Admin: 02/25/21 04:03 Dose: 25 mg Documented by: Lorazepam (Lorazepam 2 Mg/Ml Vial) 1 mg IM BID PRN PRN Reason: Seizure activity Last Admin: 02/24/21 23:53 Dose: 1 mg Documented by: Lorazepam (Lorazepam 1 Mg Tablet) 1 mg PO Q4H PRN PRN Reason: Anxiety Last Admin: 02/21/21 22:00 Dose: 1 mg Documented by: Magnesium Hydroxide (Milk Of Magnesia 30 Ml Oral.Susp) 30 ml PO DAILY PRN PRN Reason: Constipation Neomycin/Polymyxin/Bacitracin (Neomy/Polymyx/Bacit/Ointment 14 Gm Tube) 1 gm TOPICAL BID [facility]; Protocol Last Admin: 02/25/21 09:17 Dose: Not Given Documented by: Ondansetron HCl (Ondansetron Odt 8 Mg Tab.Rapdis) 8 mg TRANSLINGU BEDTIME [facility] Last Admin: 02/24/21 20:56 Dose: 8 mg Documented by: Ondansetron HCl (Ondansetron Odt 4 Mg Tab.Rapdis) 4 mg TRANSLINGU DAILY PRN PRN Reason: Nausea Last Admin: 02/24/21 18:18 Dose: 4 mg Documented by: Quetiapine Fumarate (Quetiapine Fumarate 25 Mg Tablet) 75 mg PO BEDTIME PRN PRN Reason: insomnia Last Admin: 02/24/21 23:35 Dose: 75 mg Documented by: Allergies Allergies Allergy/AdvReac Type Severity Reaction Status Date / Time metoclopramide [From Reglan] Allergy Muscle Verified 01/08/21 20:46 cramps haloperidol [From Haldol] AdvReac Severe Dystonia Verified 01/08/21 20:46 sucralfate [From Carafate] AdvReac Severe vomiting Verified 01/08/21 20:46 band-aids AdvReac Intermediate skin Uncoded 02/04/21 17:52 irritation Assessment & Plan Assessment & Plan (1) PTSD (post-traumatic stress disorder): Status: Acute Code(s): F43.10 - Post-traumatic stress disorder, unspecified (2) Schizoaffective disorder, bipolar type: Status: Acute Code(s): F25.0 - Schizoaffective disorder, bipolar type Assessment and Plan: 25 yo female returns to after extensive medical evaluation of seizure activity. 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 Pt also with inability to swallow medications due to nausea, vomiting, abdominal pain. GI testing is negative thus far. Discussed with Delaney the next step in her treatment. Discussed possible conversion reactions secondary to PTSD which she agrees is a strong possiblity. Asked if she would consider referral to [place] if we were able and she declined. She is willing to trial a new out pt therapist (female only) and will do a 14 day Abilify po trial with IM Zofran with the plan to transition to [facility]. Plan: 1. Ensure tid with meals-vanilla only. 2. Ativan 1 mg IM prn seizure activity 3. Zofran 4 mg IM HS prior to Abilify dosing 4. Abilify 10 mg HS. Weekend Coverage: 01/24- Pt continues to have episodes of pseudoseizures in the evening, appears to be responding well to IM hydroxyzine 50 mg at bedtime. Will continue abilify PO trial with IM zofran. 01/25- Will discontinue hydroxyzine PO PRN, as pt prefers IM due to reported GI distress. Discussed with primary provider and will start abilify maintena 300 mg AM. Pt denies adverse effects on PO abilify, tolerating it well. Continues to have pseudoseizure in evening. Discussed with hospitalist, who recommended workforce staffing advisor contact hospitalist, direct pt to bed, and continue to use hydroxyzine IM PRN or ativan IM PRN for relief. 01/26/21 Tentative Abilify Maintena IM 300 mg for 01/27/21. Dr. Christensen to consult with pt on 01/27 as well. 01/27/21 Hold Abilify PRITCHETT today s/p seizure. 01/28/21 Discontinue Abilify Maintena Remeron 7.5 mg HS 01/29/21 Klonopin 0.5 mg HS Continue Mirtazapine 01/30/21 Increase Zofran to 8 mg IM HS-pt request as she is having GI distress with new medications. Continue Klonopin/Mirtazapine trial 01/31 and 02/01/21: Ct Rx plan 02/02/21: Ct. current plan. Seizure activity with clearer precipitants Family meeting with pt 02/04 to discuss Abilify Maintena Trial Will provide added educational material in terms of how Abilify may assist pt in symptom mgt. 02/03/21 Seizure activity present Family meeting 02/04/21 Continue current med regime 02/04/21 Family meeting to discuss discharge planning. Pt beginning to discuss her traumatic experience with her brother to her parents. Parents to discuss what their next step is. Pt wants her brother to move from the family home. Tentative plan would be for pt to return to father's home as she cannot smoke cannabis in mother's partners home. Abilify 10 mg po 02/05 and with IM Maintena on 02/07. 02/05/21 Pt took initiative today to review meds and request changes from IM to PO to assist in her arms healing. Continue current plan of care. 02/06/21 Continue current plan of care 02/07/21 Paulinamamililiam Peralta given Observe for adverse effects. 02/08/21 Continue current plan Pt considering a mood stabilizer for seizure mgt, headache mgt, mood-Will hold as Abilify is new. 02/09/21: Topiramate 25 mg daily Pt asks for second opinion regarding pituitary tumor Discharge planning. 02/10/21 Continue current plan. 02/11/21 No changes today in medications. Continue support, education, modulation work 02/12/21: Start trial of clonidine 0.1 mg BID, as pt is reporting urges to self harm, feeling triggered, has sx of PTSD. Reviewed risks and benefits. 02/13/21: Denies SE on clonidine, reports some improvement in sleep and hyperarousal, continues to endorse sx of PTSD. 02/14/21: Pt's appetite has improved somewhat and pt has been reporting benefit on m edications, however says sleep was poor and she continues to endorse sx of PTSD. 02/15/21: Pt reports sx of PTSD, unclear if clonidine has been helpful. Encouraged pt to attend to ADLs. 02/16/21: Abilify 5 mg HS Depakote ER 250 mg HS For now, continue Topiramate-if Depakote is more effective, will taper. 02/17/21 Change Abilify to a.m. dosing Discontinue Topiramate Increase Depakote to ER 500 mg HS Seroquel 50 mg tid prn Lorazepam 1 mg po q4 hours prn anxiety, panic 02/18/21 Continue current plan. 02/19/21 Pt reports no relief from headache nor increase in sleep. Discussed titration of Depakote to 750 mg with labs on 02/23/21-valproate, cbcd, chemp. Tentative COVID vaccine 02/24/21. 02/23/21 Increase Seroquel to 75 mg HS as sleep remains disrupted Neosporin to superficial scratches COVID Booster 02/24/21. Transition to Respite when appropriate 02/25/21 Discontinue Seroquel-pt finds it not helpful. Remeron 7.5 mg HS (believes it was more helpful with her sleep) Lamictal 25 mg HS If Lamictal is tolerated will begin Depakote tapering on 02/26/21. I spent 30 minutes with the patient and/or on the patient floor today, greater than?50% of which was spent counseling/coordinating care. Patient educated on: medication risk/benefits Informed Consent: understands and further education needed Reason for contiued inpatient stay Substantial Risk for: harm to self, inability to function and rapid decompensation
[2021-02-25 18:00] VITALS: BP 106/53; PULSE 94; TEMP 36.9; O2SAT 99
[2021-02-25 21:30] VITALS: BP 117/66; PULSE 75; TEMP 36.8; O2SAT 100
[2021-02-25] MEDS: Divalproex Sodium ER 250 MG TAB.ER.24H 750 MG PO (22:04)
[2021-02-25] MEDS: Ondansetron ODT 8 MG TAB.RAPDIS TRANSLINGU (22:04)
[2021-02-25] MEDS: hydrOXYzine HCL 50 MG TABLET PO (22:06)
[2021-02-25] MEDS: Mirtazapine 7.5 MG TABLET PO (22:07)
[2021-02-25] MEDS: lamoTRIgine 25 MG TABLET PO (22:07)
[2021-02-26 06:00] VITALS: BP 102/64; PULSE 60; RESP 14; TEMP 37; O2SAT 98
[2021-02-26] MEDS: cloNIDine HCL 0.1 MG TABLET PO ×2 (09:16→21:40)
[2021-02-26] MEDS: clonazePAM 0.5 MG TABLET PO ×2 (09:16→21:42)
[2021-02-26] MEDS: ARIPiprazole 5 MG TABLET PO (09:16)
--- NOTE | 2021-02-26 12:50 | P.PNPSI_ITS ---
Subjective Subjective Date of Service: 02/26/21 Reason For Visit: Psychosis Subjective Notes: Conditional Voluntary Healthcare Proxy: No Guardianship: No Medical Problems Affecting Mental Status: No Interim History: Reports ongoing sleep sx. Discussed increase in Remeron to 15 mg hs. Discharge planned for next dukn-[id number] of concerns with family no allowing her to return and chosing her brother over her. Alert, clear, articulate. Medication Compliance: Yes Side effects from medications: No Attending Groups: Yes Review of Systems Acute medical concerns: No Medical Review of Systems: unchanged Review of Systems Psychiatric: Reports abnormal sleep pattern, Reports anxiety, Reports depression, Reports hopelessness, Reports irritability and Reports suicidal ideation Mental Status Exam Mental Status Exam Patient Appearance: Appropriate Patient Orientation: Person, Place, Time and Situation Level of Consciousness: Alert Patient Behavior: Talkative, Cooperative and Good Eye Contact Mood Description: Depressed Affect Description: Flat Patient Cognition Impaired: No Ability to Follow Directions: Good Speech Pattern: Spontaneous Speech Memory Description: Intact Hallucinations: None Delusions: Not Present Perceptual Disturbances: Depersonalization and Derealization Thought Process: Rumination Thought Content: positive for Circumstantial, positive for Perseveration and positive for Suicidal Ideation Depressive Symptoms: Increased Anxiety, Insomnia, Increased Irritability, Difficulty Sleeping, Hopelessness, Isolating-Friends/Family, Unhappiness, Increased Fatigue, Thoughts of /Suicide, Low Self Esteem, Loss of Energy and Difficulty Concentrating Judgement: Fair Diagnostics Vital Signs (24Hr): Vital Signs - 24 hr 02/25/21 18:00 02/25/21 21:30 02/26/21 06:00 Temperature 98.4 F 98.2 F 98.6 F Pulse Rate 94 75 60 Respiratory Rate 14 Blood Pressure 106/53 L 117/66 102/64 Pulse Oximetry 99 100 98 Labs Results: 02/23/21 08:18 02/23/21 08:18 Imaging Radiology Impressions: ITS Impressions Head CT 01/25/21 11:49 IMPRESSION: 1. There are no acute intracranial bleeds or territorial infarcts. The study partially redemonstrates the fullness in the suprasellar cistern, better shown on the prior MRI scan. 2. There are no acute osseous or soft tissue abnormalities. Medications Medications Current Medications Al Hydroxide/Mg Hydroxide (Magnesium Hydrox/Alum Hydrox 30 Ml Oral.Susp) 30 ml PO Q6H PRN PRN Reason: Heartburn/Nausea Last Admin: 02/13/21 15:43 Dose: 30 ml Documented by: Aripiprazole (Aripiprazole 5 Mg Tablet) 5 mg PO DAILY [facility] Last Admin: 02/26/21 09:16 Dose: 5 mg Documented by: Clonazepam (Clonazepam 0.5 Mg Tablet) 0.5 mg PO BID [facility] Last Admin: 02/26/21 09:16 Dose: 0.5 mg Documented by: Clonidine HCl (Clonidine Hcl 0.1 Mg Tablet) 0.1 mg PO BID [facility]; Protocol Last Admin: 02/26/21 09:16 Dose: 0.1 mg Documented by: Divalproex Sodium (Divalproex Sodium Er 250 Mg Tab.Er.24h) 750 mg PO BEDTIME [facility] Last Admin: 02/25/21 22:04 Dose: 750 mg Documented by: Hydroxyzine HCl (Hydroxyzine Hcl 50 Mg Tablet) 50 mg PO BEDTIME [facility] Last Admin: 02/25/21 22:06 Dose: 50 mg Documented by: Hydroxyzine HCl (Hydroxyzine Hcl 25 Mg Tablet) 25 mg PO TID PRN PRN Reason: anxiety Last Admin: 02/25/21 04:03 Dose: 25 mg Documented by: Lamotrigine (Lamotrigine 25 Mg Tablet) 25 mg PO BEDTIME [facility] Last Admin: 02/25/21 22:07 Dose: 25 mg Documented by: Lorazepam (Lorazepam 2 Mg/Ml Vial) 1 mg IM BID PRN PRN Reason: Seizure activity Last Admin: 02/24/21 23:53 Dose: 1 mg Documented by: Lorazepam (Lorazepam 1 Mg Tablet) 1 mg PO Q4H PRN PRN Reason: Anxiety Last Admin: 02/21/21 22:00 Dose: 1 mg Documented by: Magnesium Hydroxide (Milk Of Magnesia 30 Ml Oral.Susp) 30 ml PO DAILY PRN PRN Reason: Constipation Mirtazapine (Mirtazapine 7.5 Mg Tablet) 7.5 mg PO BEDTIME [facility] Last Admin: 02/25/21 22:07 Dose: 7.5 mg Documented by: Neomycin/Polymyxin/Bacitracin (Neomy/Polymyx/Bacit/Ointment 14 Gm Tube) 1 gm TOPICAL BID [facility]; Protocol Last Admin: 02/26/21 09:16 Dose: Not Given Documented by: Ondansetron HCl (Ondansetron Odt 8 Mg Tab.Rapdis) 8 mg TRANSLINGU BEDTIME [facility] Last Admin: 02/25/21 22:04 Dose: 8 mg Documented by: Ondansetron HCl (Ondansetron Odt 4 Mg Tab.Rapdis) 4 mg TRANSLINGU DAILY PRN PRN Reason: Nausea Last Admin: 02/24/21 18:18 Dose: 4 mg Documented by: Allergies Allergies Allergy/AdvReac Type Severity Reaction Status Date / Time metoclopramide [From Reglan] Allergy Muscle Verified 01/08/21 20:46 cramps haloperidol [From Haldol] AdvReac Severe Dystonia Verified 01/08/21 20:46 sucralfate [From Carafate] AdvReac Severe vomiting Verified 01/08/21 20:46 band-aids AdvReac Intermediate skin Uncoded 02/04/21 17:52 irritation Assessment & Plan Assessment & Plan (1) PTSD (post-traumatic stress disorder): Status: Acute Code(s): F43.10 - Post-traumatic stress disorder, unspecified (2) Schizoaffective disorder, bipolar type: Status: Acute Code(s): F25.0 - Schizoaffective disorder, bipolar type Assessment and Plan: 25 yo female returns to after extensive medical evaluation of seizure activity. 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 Pt also with inability to swallow medications due to nausea, vomiting, abdominal pain. GI testing is negative thus far. Discussed with Delaney the next step in her treatment. Discussed possible conversion reactions secondary to PTSD which she agrees is a strong possiblity. Asked if she would consider referral to [place] if we were able and she declined. She is willing to trial a new out pt therapist (female only) and will do a 14 day Abilify po trial with IM Zofran with the plan to transition to [facility]. Plan: 1. Ensure tid with meals-vanilla only. 2. Ativan 1 mg IM prn seizure activity 3. Zofran 4 mg IM HS prior to Abilify dosing 4. Abilify 10 mg HS. Weekend Coverage: 01/24- Pt continues to have episodes of pseudoseizures in the evening, appears to be responding well to IM hydroxyzine 50 mg at bedtime. Will continue abilify PO trial with IM zofran. 01/25- Will discontinue hydroxyzine PO PRN, as pt prefers IM due to reported GI distress. Discussed with primary provider and will start abilify maintena 300 mg AM. Pt denies adverse effects on PO abilify, tolerating it well. Continues to have pseudoseizure in evening. Discussed with hospitalist, who recommended director staffing contact hospitalist, direct pt to bed, and continue to use hydroxyzine IM PRN or ativan IM PRN for relief. 01/26/21 Tentative Abilify Maintena IM 300 mg for 01/27/21. Dr. Christensen to consult with pt on 01/27 as well. 01/27/21 Hold Abilify PRITCHETT today s/p seizure. 01/28/21 Discontinue Abilify Maintena Remeron 7.5 mg HS 01/29/21 Klonopin 0.5 mg HS Continue Mirtazapine 01/30/21 Increase Zofran to 8 mg IM HS-pt request as she is having GI distress with new medications. Continue Klonopin/Mirtazapine trial 01/31 and 02/01/21: Ct Rx plan 02/02/21: Ct. current plan. Seizure activity with clearer precipitants Family meeting with pt 02/04 to discuss Abilify Maintena Trial Will provide added educational material in terms of how Abilify may assist pt in symptom mgt. 02/03/21 Seizure activity present Family meeting 02/04/21 Continue current med regime 02/04/21 Family meeting to discuss discharge planning. Pt beginning to discuss her traumatic experience with her brother to her parents. Parents to discuss what their next step is. Pt wants her brother to move from the family home. Tentative plan would be for pt to return to father's home as she cannot smoke cannabis in mother's partners home. Abilify 10 mg po 02/05 and with IM Maintena on 02/07. 02/05/21 Pt took initiative today to review meds and request changes from IM to PO to assist in her arms healing. Continue current plan of care. 02/06/21 Continue current plan of care 02/07/21 Abilify Maintena given Observe for adverse effects. 02/08/21 Continue current plan Pt considering a mood stabilizer for seizure mgt, headache mgt, mood-Will hold as Abilify is new. 02/09/21: Topiramate 25 mg daily Pt asks for second opinion regarding pituitary tumor Discharge planning. 02/10/21 Continue current plan. 02/11/21 No changes today in medications. Continue support, education, modulation work 02/12/21: Start trial of clonidine 0.1 mg BID, as pt is reporting urges to self harm, feeling triggered, has sx of PTSD. Reviewed risks and benefits. 02/13/21: Denies SE on clonidine, reports some improvement in sleep and hyperarousal, continues to endorse sx of PTSD. 02/14/21: Pt's appetite has improved somewhat and pt has been reporting benefit on medications, however says sleep was poor and she continues to endorse sx of PTSD. 02/15/21: Pt reports sx of PTSD, unclear if clonidine has been helpful. Encouraged pt to attend to ADLs. 02/16/21: Abilify 5 mg HS Depakote ER 250 mg HS For now, continue Topiramate-if Depakote is more effective, will taper. 02/17/21 Change Abilify to a.m. dosing Discontinue Topiramate Increase Depakote to ER 500 mg HS Seroquel 50 mg tid prn Lorazepam 1 mg po q4 hours prn anxiety, panic 02/18/21 Continue current plan. 02/19/21 Pt reports no relief from headache nor increase in sleep. Discussed titration of Depakote to 750 mg with labs on 02/23/21-valproate, cbcd, chemp. Tentative COVID vaccine 02/24/21. 02/23/21 Increase Seroquel to 75 mg HS as sleep remains disrupted Neosporin to superficial scratches COVID Booster 02/24/21. Transition to Respite when appropriate 02/25/21 Discontinue Seroquel-pt finds it not helpful. Remeron 7.5 mg HS (believes it was more helpful with her sleep) Lamictal 25 mg HS If Lamictal is tolerated will begin Depakote tapering on 02/26/21. 02/26/21 Increase Remeron to 15 mg hs I spent 30 minutes with the patient and/or on the patient floor today, greater than?50% of which was spent counseling/coordinating care. Patient educated on: medication risk/benefits Informed Consent: understands Reason for contiued inpatient stay Substantial Risk for: harm to self, inability to function and rapid decom pensation
[2021-02-26 18:00] VITALS: BP 108/57; PULSE 69; RESP 17; TEMP 36.4; O2SAT 98
[2021-02-26] MEDS: Ondansetron ODT 8 MG TAB.RAPDIS TRANSLINGU (20:54)
[2021-02-26] MEDS: hydrOXYzine HCL 50 MG TABLET PO (21:41)
[2021-02-26] MEDS: lamoTRIgine 25 MG TABLET PO (21:41)
[2021-02-26] MEDS: Divalproex Sodium ER 250 MG TAB.ER.24H 750 MG PO (21:42)
[2021-02-26] MEDS: Mirtazapine 15 MG TABLET PO (21:42)
[2021-02-27 06:00] VITALS: BP 126/80; PULSE 80; RESP 14; TEMP 36.8; O2SAT 96
[2021-02-27] MEDS: ARIPiprazole 5 MG TABLET PO (09:13)
[2021-02-27] MEDS: cloNIDine HCL 0.1 MG TABLET PO (09:13)
[2021-02-27] MEDS: clonazePAM 0.5 MG TABLET PO ×2 (09:13→22:21)
--- NOTE | 2021-02-27 17:04 | HO.PSYCHPN ---
Subjective Subjective Date of Service: 02/27/21 Reason For Visit: Psychosis Subjective Notes: Conditional Voluntary Healthcare Proxy: No Guardianship: No Medical Problems Affecting Mental Status: No Interim History: Preparing for discharge next week. Visable in milieu, spending time with a peer on Nintendo switch. No individual concerns for tw today. Medication Compliance: Yes Side effects from medications: No Attending Groups: No Review of Systems Acute medical concerns: No Medical Review of Systems: unchanged Review of Systems Psychiatric: Reports abnormal sleep pattern, Reports anxiety, Reports depression, Reports hopelessness, Reports irritability, Reports anhedonia and Reports suicidal ideation Mental Status Exam Mental Status Exam Patient Appearance: Appropriate Patient Orientation: Person, Place, Time and Situation Level of Consciousness: Alert Patient Behavior: Talkative, Cooperative and Good Eye Contact Mood Description: Depressed Affect Description: Flat Patient Cognition Impaired: No Ability to Follow Directions: Good Speech Pattern: Spontaneous Speech Memory Description: Intact Hallucinations: None Delusions: Not Present Perceptual Disturbances: Depersonalization and Derealization Thought Process: Rumination Thought Content: positive for Circumstantial, positive for Perseveration and positive for Suicidal Ideation Depressive Symptoms: Increased Anxiety, Insomnia, Increased Irritability, Difficulty Sleeping, Hopelessness, Isolating-Friends/Family, Unhappiness, Increased Fatigue, Thoughts of /Suicide, Low Self Esteem, Loss of Energy and Difficulty Concentrating Judgement: Fair Diagnostics Vital Signs (24Hr): Vital Signs - 24 hr 02/26/21 18:00 02/27/21 06:00 Temperature 97.5 F 98.2 F Pulse Rate 69 80 Respiratory Rate 17 14 Blood Pressure 108/57 L 126/80 Pulse Oximetry 98 96 Labs Results: 02/23/21 08:18 02/23/21 08:18 Imaging Radiology Impressions: ITS Impressions Head CT 01/25/21 11:49 IMPRESSION: 1. There are no acute intracranial bleeds or territorial infarcts. The study partially redemonstrates the fullness in the suprasellar cistern, better shown on the prior MRI scan. 2. There are no acute osseous or soft tissue abnormalities. Medications Medications Current Medications Al Hydroxide/Mg Hydroxide (Magnesium Hydrox/Alum Hydrox 30 Ml Oral.Susp) 30 ml PO Q6H PRN PRN Reason: Heartburn/Nausea Last Admin: 02/13/21 15:43 Dose: 30 ml Documented by: Aripiprazole (Aripiprazole 5 Mg Tablet) 5 mg PO DAILY [facility] Last Admin: 02/27/21 09:13 Dose: 5 mg Documented by: Clonazepam (Clonazepam 0.5 Mg Tablet) 0.5 mg PO BID [facility] Last Admin: 02/27/21 09:13 Dose: 0.5 mg Documented by: Clonidine HCl (Clonidine Hcl 0.1 Mg Tablet) 0.1 mg PO BID [facility]; Protocol Last Admin: 02/27/21 09:13 Dose: 0.1 mg Documented by: Divalproex Sodium (Divalproex Sodium Er 250 Mg Tab.Er.24h) 750 mg PO BEDTIME [facility] Last Admin: 02/26/21 21:42 Dose: 750 mg Documented by: Hydroxyzine HCl (Hydroxyzine Hcl 50 Mg Tablet) 50 mg PO BEDTIME [facility] Last Admin: 02/26/21 21:41 Dose: 50 mg Documented by: Hydroxyzine HCl (Hydroxyzine Hcl 25 Mg Tablet) 25 mg PO TID PRN PRN Reason: anxiety Last Admin: 02/25/21 04:03 Dose: 25 mg Documented by: Lamotrigine (Lamotrigine 25 Mg Tablet) 25 mg PO BEDTIME [facility] Last Admin: 02/26/21 21:41 Dose: 25 mg Documented by: Lorazepam (Lorazepam 2 Mg/Ml Vial) 1 mg IM BID PRN PRN Reason: Seizure activity Last Admin: 02/24/21 23:53 Dose: 1 mg Documented by: Lorazepam (Lorazepam 1 Mg Tablet) 1 mg PO Q4H PRN PRN Reason: Anxiety Last Admin: 02/21/21 22:00 Dose: 1 mg Documented by: Magnesium Hydroxide (Milk Of Magnesia 30 Ml Oral.Susp) 30 ml PO DAILY PRN PRN Reason: Constipation Mirtazapine (Mirtazapine 15 Mg Tablet) 15 mg PO BEDTIME [facility] Last Admin: 02/26/21 21:42 Dose: 15 mg Documented by: Neomycin/Polymyxin/Bacitracin (Neomy/Polymyx/Bacit/Ointment 14 Gm Tube) 1 gm TOPICAL BID [facility]; Protocol Last Admin: 02/27/21 09:13 Dose: Not Given Documented by: Ondansetron HCl (Ondansetron Odt 8 Mg Tab.Rapdis) 8 mg TRANSLINGU BEDTIME [facility] Last Admin: 02/26/21 20:54 Dose: 8 mg Documented by: Ondansetron HCl (Ondansetron Odt 4 Mg Tab.Rapdis) 4 mg TRANSLINGU DAILY PRN PRN Reason: Nausea Last Admin: 02/24/21 18:18 Dose: 4 mg Documented by: Allergies Allergies Allergy/AdvReac Type Severity Reaction Status Date / Time metoclopramide [From Reglan] Allergy Muscle Verified 01/08/21 20:46 cramps haloperidol [From Haldol] AdvReac Severe Dystonia Verified 01/08/21 20:46 sucralfate [From Carafate] AdvReac Severe vomiting Verified 01/08/21 20:46 band-aids AdvReac Intermediate skin Uncoded 02/04/21 17:52 irritation Assessment & Plan Assessment & Plan (1) PTSD (post-traumatic stress disorder): Status: Acute Code(s): F43.10 - Post-traumatic stress disorder, unspecified (2) Schizoaffective disorder, bipolar type: Status: Acute Code(s): F25.0 - Schizoaffective disorder, bipolar type Assessment and Plan: 25 yo female returns to after extensive medical evaluation of seizure activity. 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 Pt also with inability to swallow medications due to nausea, vomiting, abdominal pain. GI testing is negative thus far. Discussed with Delaney the next step in her treatment. Discussed possible conversion reactions secondary to PTSD which she agrees is a strong possiblity. Asked if she would consider referral to [facility] if we were able and she declined. She is willing to trial a new out pt therapist (female only) and will do a 14 day Abilify po trial with IM Zofran with the plan to transition to M[facility]. Plan: 1. Ensure tid with meals-vanilla only. 2. Ativan 1 mg IM prn seizure activity 3. Zofran 4 mg IM HS prior to Abilify dosing 4. Abilify 10 mg HS. Weekend Coverage: 01/24- Pt continues to have episodes of pseudoseizures in the evening, appears to be responding well to IM hydroxyzine 50 mg at bedtime. Will continue abilify PO trial with IM zofran. 01/25- Will discontinue hydroxyzine PO PRN, as pt prefers IM due to reported GI distress. Discussed with primary provider and will start abilify maintena 300 mg AM. Pt denies adverse effects on PO abilify, tolerating it well. Continues to have pseudoseizure in evening. Discussed with hospitalist, who recommended icu staff nurse contact hospitalist, direct pt to bed, and continue to use hydroxyzine IM PRN or ativan IM PRN for relief. 01/26/21 Tentative Abilify Maintena IM 300 mg for 01/27/21. Dr. Christensen to consult with pt on 01/27 as well. 01/27/21 Hold Abilify PRITCHETT today s/p seizure. 01/28/21 Discontinue Abilify Maintena Remeron 7.5 mg HS 01/29/21 Klonopin 0.5 mg HS Continue Mirtazapine 01/30/21 Increase Zofran to 8 mg IM HS-pt request as she is having GI distress with new medications. Continue Klonopin/Mirtazapine trial 01/31 and 02/01/21: Ct Rx plan 02/02/21: Ct. current plan. Seizure activity with clearer precipitants Family meeting with pt 02/04 to discuss Abilify Maintena Trial Will provide added educational material in terms of how Abilify may assist pt in symptom mgt. 02/03/21 Seizure activity present Family meeting 02/04/21 Continue current med regime 02/04/21 Family meeting to discuss discharge planning. Pt beginning to discuss her traumatic experience with her brother to her parents. Parents to discuss what their next step is. Pt wants her brother to move from the family home. Tentative plan would be for pt to return to father's home as she cannot smoke cannabis in mother's partners home. Abilify 10 mg po 02/05 and with IM Maintena on 02/07. 02/05/21 Pt took initiative today to review meds and request changes from IM to PO to assist in her arms healing. Continue current plan of care. 02/06/21 Continue current plan of care 02/07/21 Abilify Maintena given Observe for adverse effects. 02/08/21 Continue current plan Pt considering a mood stabilizer for seizure mgt, headache mgt, mood-Will hold as Abilify is new. 02/09/21: Topiramate 25 mg daily Pt asks for second opinion regarding pituitary tumor Discharge planning. 02/10/21 Continue current plan. 02/11/21 No changes today in medications. Continue support, education, modulation work 02/12/21: Start trial of clonidine 0.1 mg BID, as pt is reporting urges to self harm, feeling triggered, has sx of PTSD. Reviewed risks and benefits. 02/13/21: Denies SE on clonidine, reports some improvement in sleep and hyperarousal, continues to endorse sx of PTSD. 02/14/21: Pt's appetite has improved somewhat and pt has been reporting benefit on medications, however says sleep was poor and she continues to endorse sx of PTSD. 02/15/21: Pt reports sx of PTSD, unclear if clonidine has been helpful. Encouraged pt to attend to ADLs. 02/16/21: Abilify 5 mg HS Depakote ER 250 mg HS For now, continue Topiramate-if Depakote is more effective, will taper. 02/17/21 Change Abilify to a.m. dosing Discontinue Topiramate Increase Depakote to ER 500 mg HS Seroquel 50 mg tid prn Lorazepam 1 mg po q4 hours prn anxiety, panic 02/18/21 Continue current plan. 02/19/21 Pt reports no relief from headache nor increase in sleep. Discussed titration of Depakote to 750 mg with labs on 02/23/21-valproate, cbcd, chemp. Tentative COVID vaccine 02/24/21. 02/23/21 Increase Seroquel to 75 mg HS as sleep remains disrupted Neosporin to superficial scratches COVID Booster 02/24/21. Transition to Respite when appropriate 02/25/21 Discontinue Seroquel-pt finds it not helpful. Remeron 7.5 mg HS (believes it was more helpful with her sleep) Lamictal 25 mg HS If Lamictal is tolerated will begin Depakote tapering on 02/26/21. 02/26/21 Increase Remeron to 15 mg hs 02/27/21 Discharge planning and support for Delaney. I spent 15 minutes with the patient and/or on the patient floor today, greater than?50% of which was spent counseling/coordinating care. Patient educated on: medication risk/benefits Informed Consent: understands and further education needed Reason for contiued inpatient stay Substantial Risk for: harm to self and rapid decompensation
[2021-02-27 17:21] VITALS: BP 104/56; PULSE 66; RESP 16; TEMP 36.6; O2SAT 99
--- NOTE | 2021-02-27 17:22 | PC.NURSE ---
At approximately 17:10 this publicity writer was called to the OT room after staff reported some seizure like activity. PT was sitting in chair, slightly slouched without any seizure activity when I arrived. VS stable, BP 104/56, HR 66, T 98 O2 Sat 99% RA. PT able to follow short verbal commands and move from chair into wheelchair. PT brought to her room, shoes and jacket were removed and PT was placed in left lateral position. Of note, PT did not have any convulsion from the arrival of this publicity writer to the time this publicity writer left the room.
[2021-02-27] MEDS: Divalproex Sodium ER 250 MG TAB.ER.24H 750 MG PO (22:19)
[2021-02-27] MEDS: hydrOXYzine HCL 50 MG TABLET PO (22:19)
[2021-02-27] MEDS: Mirtazapine 15 MG TABLET PO (22:20)
[2021-02-27] MEDS: lamoTRIgine 25 MG TABLET PO (22:20)
[2021-02-27] MEDS: Ondansetron ODT 8 MG TAB.RAPDIS TRANSLINGU (22:21)
[2021-02-28] MEDS: hydrOXYzine HCL 25 MG TABLET PO ×2 (00:18→23:36)
[2021-02-28] MEDS: ARIPiprazole 5 MG TABLET PO (08:47)
[2021-02-28] MEDS: clonazePAM 0.5 MG TABLET PO ×2 (08:47→18:41)
[2021-02-28] MEDS: cloNIDine HCL 0.1 MG TABLET PO ×2 (10:10→18:41)
--- NOTE | 2021-02-28 12:26 | P.PNPSI_ITS ---
Subjective Subjective Date of Service: 02/28/21 Reason For Visit: Psychosis Subjective Notes: Conditional Voluntary Interim History: Pt pleasant on approach. Pt with bright affect. However, she reports that she is not ready for discharged, that she feels the same as when she came in. However, staff have noted that pt is much more visible, brighter affect. Pt reports chronic suicidal ideation but denies any plan or intent to hurt herself. She is eating and sleeping well. Medication Compliance: Yes Side effects from medications: No Review of Systems Review of Systems unchanged Constitutional: Reports headache(s) Reports headache(s) Reports behavioral changes, Reports headache(s) and Reports seizure-like activity (medical/neuro team report non-epileptic activity) Psychiatric: Reports abnormal sleep pattern, Reports anxiety, Reports behavioral changes, Reports change in appetite, Reports depression, Reports difficulty concentrating, Reports hopelessness, Reports irritability, Reports anhedonia, Reports mood swings, Reports paranoia, Reports suicidal ideation and Reports other (pseudoseizure) Mental Status Exam Mental Status Exam Narrative: Patient Appearance:?Appropriate Patient Orientation:?Person, Place, Time and Situation Level of Consciousness:?Alert Patient Behavior:?Talkative, Anxious and Good Eye Contact Mood Description:?Anxious, Labile and Apprehensive Affect Description:?Labile Patient Cognition Impaired:?No Ability to Follow Directions:?Good Speech Pattern:?Spontaneous Speech Memory Description:?Episodic Impaired Hallucinations:?None Delusions:?Paranoid Ideation Perceptual Disturbances:?Depersonalization and Derealization Thought Process:?Distracted and Rumination Thought Content:?positive for Circumstantial Depressive Symptoms:?Increased Anxiety, Diff. Making Decisions, Increased Irritability, Hopelessness, Unhappiness and Difficulty Concentrating Judgement:?Fair Diagnostics Vital Signs (24Hr): Vital Signs - 24 hr 02/28/21 19:05 03/01/21 06:00 Temperature 97.5 F 97.5 F Pulse Rate 94 77 Respiratory Rate 18 18 Blood Pressure 128/66 92/51 L Pulse Oximetry 100 100 Labs Results: 02/23/21 08:18 02/23/21 08:18 Imaging Radiology Impressions: ITS Impressions Head CT 01/25/21 11:49 IMPRESSION: 1. There are no acute intracranial bleeds or territorial infarcts. The study partially redemonstrates the fullness in the suprasellar cistern, better shown on the prior MRI scan. 2. There are no acute osseous or soft tissue abnormalities. Medications Medications Current Medications Al Hydroxide/Mg Hydroxide (Magnesium Hydrox/Alum Hydrox 30 Ml Oral.Susp) 30 ml PO Q6H PRN PRN Reason: Heartburn/Nausea Last Admin: 02/13/21 15:43 Dose: 30 ml Documented by: Aripiprazole (Aripiprazole 5 Mg Tablet) 5 mg PO DAILY [facility] Last Admin: 03/01/21 09:18 Dose: 5 mg Documented by: Clonazepam (Clonazepam 0.5 Mg Tablet) 0.5 mg PO BID [facility] Last Admin: 03/01/21 09:18 Dose: 0.5 mg Documented by: Clonidine HCl (Clonidine Hcl 0.1 Mg Tablet) 0.1 mg PO BID [facility]; Protocol Last Admin: 03/01/21 09:20 Dose: 0.1 mg Documented by: Divalproex Sodium (Divalproex Sodium Er 250 Mg Tab.Er.24h) 750 mg PO BEDTIME [facility] Last Admin: 02/28/21 18:41 Dose: 750 mg Documented by: Hydroxyzine HCl (Hydroxyzine Hcl 50 Mg Tablet) 50 mg PO BEDTIME [facility] Last Admin: 02/28/21 18:41 Dose: 50 mg Documented by: Hydroxyzine HCl (Hydroxyzine Hcl 25 Mg Tablet) 25 mg PO TID PRN PRN Reason: anxiety Last Admin: 02/28/21 23:36 Dose: 25 mg Documented by: Lamotrigine (Lamotrigine 25 Mg Tablet) 25 mg PO BEDTIME [facility] Last Admin: 02/28/21 18:41 Dose: 25 mg Documented by: Lorazepam (Lorazepam 2 Mg/Ml Vial) 1 mg IM BID PRN PRN Reason: Seizure activity Last Admin: 02/24/21 23:53 Dose: 1 mg Documented by: Lorazepam (Lorazepam 1 Mg Tablet) 1 mg PO Q4H PRN PRN Reason: Anxiety Last Admin: 03/01/21 00:03 Dose: 1 mg Documented by: Magnesium Hydroxide (Milk Of Magnesia 30 Ml Oral.Susp) 30 ml PO DAILY PRN PRN Reason: Constipation Mirtazapine (Mirtazapine 15 Mg Tablet) 15 mg PO BEDTIME [facility] Last Admin: 02/28/21 18:41 Dose: 15 mg Documented by: Neomycin/Polymyxin/Bacitracin (Neomy/Polymyx/Bacit/Ointment 14 Gm Tube) 1 gm TOPICAL BID [facility]; Protocol Last Admin: 03/01/21 10:54 Dose: Not Given Documented by: Ondansetron HCl (Ondansetron Odt 8 Mg Tab.Rapdis) 8 mg TRANSLINGU BEDTIME [facility] Last Admin: 02/28/21 18:41 Dose: 8 mg Documented by: Ondansetron HCl (Ondansetron Odt 4 Mg Tab.Rapdis) 4 mg TRANSLINGU DAILY PRN PRN Reason: Nausea Last Admin: 02/24/21 18:18 Dose: 4 mg Documented by: Allergies Allergies Allergy/AdvReac Type Severity Reaction Status Date / Time metoclopramide [From Reglan] Allergy Muscle Verified 01/08/21 20:46 cramps haloperidol [From Haldol] AdvReac Severe Dystonia Verified 01/08/21 20:46 sucralfate [From Carafate] AdvReac Severe vomiting Verified 01/08/21 20:46 band-aids AdvReac Intermediate skin Uncoded 02/04/21 17:52 irritation Assessment & Plan Assessment & Plan (1) PTSD (post-traumatic stress disorder): Status: Acute Code(s): F43.10 - Post-traumatic stress disorder, unspecified (2) Schizoaffective disorder, bipolar type: Status: Acute Code(s): F25.0 - Schizoaffective disorder, bipolar type Assessment and Plan: 25 yo female returns to after extensive medical evaluation of seizure activity. 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 Pt also with inability to swallow medications due to nausea, vomiting, abdominal pain. GI testing is negative thus far. Discussed with Delaney the next step in her treatment. Discussed possible conversion reactions secondary to PTSD which she agrees is a strong possiblity. Asked if she would consider referral to [facility] if we were able and she declined. She is willing to trial a new out pt therapist (female only) and will do a 14 day Abilify po trial with IM Zofran with the plan to transition to [facility]. Plan: 1. Ensure tid with meals-vanilla only. 2. Ativan 1 mg IM prn seizure activity 3. Zofran 4 mg IM HS prior to Abilify dosing 4. Abilify 10 mg HS. Weekend Coverage: 01/24- Pt continues to have episodes of pseudoseizures in the evening, appears to be responding well to IM hydroxyzine 50 mg at bedtime. Will continue abilify PO trial with IM zofran. 01/25- Will discontinue hydroxyzine PO PRN, as pt prefers IM due to reported GI distress. Discussed with primary provider and will start abilify maintena 300 mg AM. Pt denies adverse effects on PO abilify, tolerating it well. Continues to have pseudoseizure in evening. Discussed with hospitalist, who recommended staff development nurse contact hospitalist, direct pt to bed, and continue to use hydroxyzine IM PRN or ativan IM PRN for relief. 01/26/21 Tentative Abilify Maintena IM 300 mg for 01/27/21. Dr. Christensen to consult with pt on 01/27 as well. 01/27/21 Hold Abilify PRITCHETT today s/p seizure. 01/28/21 Discontinue Abilify Maintena Remeron 7.5 mg HS 01/29/21 Klonopin 0.5 mg HS Continue Mirtazapine 01/30/21 Increase Zofran to 8 mg IM HS-pt request as she is having GI distress with new medications. Continue Klonopin/Mirtazapine trial 01/31 and 02/01/21: Ct Rx plan 02/02/21: Ct. current plan. Seizure activity with clearer precipitants Family meeting with pt 02/04 to discuss Abilify Maintena Trial Will provide added educational material in terms of how Abilify may assist pt in symptom mgt. 02/03/21 Seizure activity present Family meeting 02/04/21 Continue current med regime 02/04/21 Family meeting to discuss discharge planning. Pt beginning to discuss her traumatic experience with her brother to her parents. Parents to discuss what their next step is. Pt wants her brother to move from the family home. Tentative plan would be for pt to return to father's home as she cannot smoke cannabis in mother's partners home. Abilify 10 mg po 02/05 and 17 with IM Maintena on 02/07. 02/05/21 Pt took initiative today to review meds and request changes from IM to PO to assist in her arms healing. Continue current plan of care. 02/06/21 Continue current plan of care 02/07/21 Zohra Peralta given Observe for adverse effects. 02/08/21 Continue current plan Pt considering a mood stabilizer for seizure mgt, headache mgt, mood-Will hold as Abilify is new. 02/09/21: Topiramate 25 mg daily Pt asks for second opinion regarding pituitary tumor Discharge planning. 02/10/21 Continue current plan. 02/11/21 No changes today in medications. Continue support, education, modulation work 02/12/21: Start trial of clonidine 0.1 mg BID, as pt is reporting urges to self harm, feeling triggered, has sx of PTSD. Reviewed risks and benefits. 02/13/21: Denies SE on clonidine, reports some improvement in sleep and hyperarousal, continues to endorse sx of PTSD. 02/14/21: Pt's appetite has improved somewhat and pt has been reporting benefit on medications, however says sleep was poor and she continues to endorse sx of PTSD. 02/15/21: Pt reports sx of PTSD, unclear if clonidine has been helpful. Encouraged pt to attend to ADLs. 02/16/21: Abilify 5 mg HS Depakote ER 250 mg HS For now, continue Topiramate-if Depakote is more effective, will taper. 02/17/21 Change Abilify to a.m. dosing Discontinue Topiramate Increase Depakote to ER 500 mg HS Seroquel 50 mg tid prn Lorazepam 1 mg po q4 hours prn anxiety, panic 02/18/21 Continue current plan. 02/19/21 Pt reports no relief from headache nor increase in sleep. Discussed titration of Depakote to 750 mg with labs on 02/23/21-valproate, cbcd, chemp. Tentative COVID vaccine 02/24/21. 02/23/21 Increase Seroquel to 75 mg HS as sleep remains disrupted Neosporin to superficial scratches COVID Booster 02/24/21. Transition to Respite when appropriate 02/25/21 Discontinue Seroquel-pt finds it not helpful. Remeron 7.5 mg HS (believes it was more helpful with her sleep) Lamictal 25 mg HS If Lamictal is tolerated will begin Depakote tapering on 02/26/21. 02/26/21 Increase Remeron to 15 mg hs 02/27/21 Discharge planning and support for Delaney. 02/28- no changes in medications. bright affect, visible. I spent minutes with the patient and/or on the patient floor today, greater than?50% of which was spent counseling/coordinating care. Reason for contiued inpatient stay Substantial Risk for: stable for discharge
[2021-02-28] MEDS: Mirtazapine 15 MG TABLET PO (18:41)
[2021-02-28] MEDS: Divalproex Sodium ER 250 MG TAB.ER.24H 750 MG PO (18:41)
[2021-02-28] MEDS: hydrOXYzine HCL 50 MG TABLET PO (18:41)
[2021-02-28] MEDS: lamoTRIgine 25 MG TABLET PO (18:41)
[2021-02-28] MEDS: Ondansetron ODT 8 MG TAB.RAPDIS TRANSLINGU (18:41)
[2021-02-28] MEDS: NeoMY/Polymyx/Bacit/Ointment 14 GM Tube TOPICAL (19:02)
[2021-02-28 19:05] VITALS: BP 128/66; PULSE 94; RESP 18; TEMP 36.4; O2SAT 100
[2021-03-01] MEDS: LORazepam 1 MG TABLET PO (00:03)
[2021-03-01 06:00] VITALS: BP 92/51; PULSE 77; RESP 18; TEMP 36.4; O2SAT 100
[2021-03-01] MEDS: ARIPiprazole 5 MG TABLET PO (09:18)
[2021-03-01] MEDS: clonazePAM 0.5 MG TABLET PO ×2 (09:18→18:53)
[2021-03-01] MEDS: cloNIDine HCL 0.1 MG TABLET PO ×2 (09:20→18:55)
--- NOTE | 2021-03-01 12:30 | HO.PSYCHPN ---
Subjective Subjective Date of Service: 03/01/21 Reason For Visit: Psychosis Subjective Notes: Conditional Voluntary Interim History: Pt seen in her room, playing with [employer]. Pt with bright affect. However, she reports that she is not ready for discharged, that she feels the same as when she came in. However, staff have noted that pt is much more visible, brighter affect. Pt reports chronic suicidal ideation but denies any plan or intent to hurt herself. She is eating and sleeping well. Review of Systems Review of Systems unchanged Constitutional: Reports headache(s) Reports headache(s) Reports behavioral changes, Reports headache(s) and Reports seizure-like activity (medical/neuro team report non-epileptic activity) Psychiatric: Reports abnormal sleep pattern, Reports anxiety, Reports behavioral changes, Reports change in appetite, Reports depression, Reports difficulty concentrating, Reports hopelessness, Reports irritability, Reports anhedonia, Reports mood swings, Reports paranoia, Reports suicidal ideation and Reports other (pseudoseizure) Mental Status Exam Mental Status Exam Narrative: Patient Appearance:?Appropriate Patient Orientation:?Person, Place, Time and Situation Level of Consciousness:?Alert Patient Behavior:?Talkative, Anxious and Good Eye Contact Mood Description:?Anxious, Labile and Apprehensive Affect Description:?Labile Patient Cognition Impaired:?No Ability to Follow Directions:?Good Speech Pattern:?Spontaneous Speech Memory Description:?Episodic Impaired Hallucinations:?None Delusions:?Paranoid Ideation Perceptual Disturbances:?Depersonalization and Derealization Thought Process:?Distracted and Rumination Thought Content:?positive for Circumstantial Depressive Symptoms:?Increased Anxiety, Diff. Making Decisions, Increased Irritability, Hopelessness, Unhappiness and Difficulty Concentrating Judgement:?Fair Diagnostics Vital Signs (24Hr): Vital Signs - 24 hr 02/28/21 19:05 03/01/21 06:00 Temperature 97.5 F 97.5 F Pulse Rate 94 77 Respiratory Rate 18 18 Blood Pressure 128/66 92/51 L Pulse Oximetry 100 100 Labs Results: 02/23/21 08:18 02/23/21 08:18 Imaging Radiology Impressions: ITS Impressions Head CT 01/25/21 11:49 IMPRESSION: 1. There are no acute intracranial bleeds or territorial infarcts. The study partially redemonstrates the fullness in the suprasellar cistern, better shown on the prior MRI scan. 2. There are no acute osseous or soft tissue abnormalities. Medications Medications Current Medications Al Hydroxide/Mg Hydroxide (Magnesium Hydrox/Alum Hydrox 30 Ml Oral.Susp) 30 ml PO Q6H PRN PRN Reason: Heartburn/Nausea Last Admin: 02/13/21 15:43 Dose: 30 ml Documented by: Aripiprazole (Aripiprazole 5 Mg Tablet) 5 mg PO DAILY [facility] Last Admin: 03/01/21 09:18 Dose: 5 mg Documented by: Clonazepam (Clonazepam 0.5 Mg Tablet) 0.5 mg PO BID [facility] [place] Last Admin: 03/01/21 09:18 Dose: 0.5 mg Documented by: Clonidine HCl (Clonidine Hcl 0.1 Mg Tablet) 0.1 mg PO BID [facility] [place]; Protocol Last Admin: 03/01/21 09:20 Dose: 0.1 mg Documented by: Divalproex Sodium (Divalproex Sodium Er 250 Mg Tab.Er.24h) 750 mg PO BEDTIME [facility] [place] Last Admin: 02/28/21 18:41 Dose: 750 mg Documented by: Hydroxyzine HCl (Hydroxyzine Hcl 50 Mg Tablet) 50 mg PO BEDTIME [facility] [place] Last Admin: 02/28/21 18:41 Dose: 50 mg Documented by: Hydroxyzine HCl (Hydroxyzine Hcl 25 Mg Tablet) 25 mg PO TID PRN PRN Reason: anxiety Last Admin: 02/28/21 23:36 Dose: 25 mg Documented by: Lamotrigine (Lamotrigine 25 Mg Tablet) 25 mg PO BEDTIME [facility] [place] Last Admin: 02/28/21 18:41 Dose: 25 mg Documented by: Lorazepam (Lorazepam 2 Mg/Ml Vial) 1 mg IM BID PRN PRN Reason: Seizure activity Last Admin: 02/24/21 23:53 Dose: 1 mg Documented by: Lorazepam (Lorazepam 1 Mg Tablet) 1 mg PO Q4H PRN PRN Reason: Anxiety Last Admin: 03/01/21 00:03 Dose: 1 mg Documented by: Magnesium Hydroxide (Milk Of Magnesia 30 Ml Oral.Susp) 30 ml PO DAILY PRN PRN Reason: Constipation Mirtazapine (Mirtazapine 15 Mg Tablet) 15 mg PO BEDTIME [facility] [place] Last Admin: 02/28/21 18:41 Dose: 15 mg Documented by: Neomycin/Polymyxin/Bacitracin (Neomy/Polymyx/Bacit/Ointment 14 Gm Tube) 1 gm TOPICAL BID [facility]; Protocol Last Admin: 03/01/21 10:54 Dose: Not Given Documented by: Ondansetron HCl (Ondansetron Odt 8 Mg Tab.Rapdis) 8 mg TRANSLINGU BEDTIME [facility] Last Admin: 02/28/21 18:41 Dose: 8 mg Documented by: Ondansetron HCl (Ondansetron Odt 4 Mg Tab.Rapdis) 4 mg TRANSLINGU DAILY PRN PRN Reason: Nausea Last Admin: 02/24/21 18:18 Dose: 4 mg Documented by: Allergies Allergies Allergy/AdvReac Type Severity Reaction Status Date / Time metoclopramide [From Reglan] Allergy Muscle Verified 01/08/21 20:46 cramps haloperidol [From Haldol] AdvReac Severe Dystonia Verified 01/08/21 20:46 sucralfate [From Carafate] AdvReac Severe vomiting Verified 01/08/21 20:46 band-aids AdvReac Intermediate skin Uncoded 02/04/21 17:52 irritation Assessment & Plan Assessment & Plan (1) PTSD (post-traumatic stress disorder): Status: Acute Code(s): F43.10 - Post-traumatic stress disorder, unspecified (2) Schizoaffective disorder, bipolar type: Status: Acute Code(s): F25.0 - Schizoaffective disorder, bipolar type Assessment and Plan: 25 yo female returns to after extensive medical evaluation of seizure activity. 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 Pt also with inability to swallow medications due to nausea, vomiting, abdominal pain. GI testing is negative thus far. Discussed with Delaney the next step in her treatment. Discussed possible conversion reactions secondary to PTSD which she agrees is a strong possiblity. Asked if she would consider referral to [place] if we were able and she declined. She is willing to trial a new out pt therapist (female only) and will do a 14 day Abilify po trial with IM Zofran with the plan to transition to [facility]. Plan: 1. Ensure tid with meals-vanilla only. 2. Ativan 1 mg IM prn seizure activity 3. Zofran 4 mg IM HS prior to Abilify dosing 4. Abilify 10 mg HS. Weekend Coverage: 01/24- Pt continues to have episodes of pseudoseizures in the evening, appears to be responding well to IM hydroxyzine 50 mg at bedtime. Will continue abilify PO trial with IM zofran. 01/25- Will discontinue hydroxyzine PO PRN, as pt prefers IM due to reported GI distress. Discussed with primary provider and will start abilify maintena 300 mg AM. Pt denies adverse effects on PO abilify, tolerating it well. Continues to have pseudoseizure in evening. Discussed with hospitalist, who recommended full time staff interpreter contact hospitalist, direct pt to bed, and continue to use hydroxyzine IM PRN or ativan IM PRN for relief. 01/26/21 Tentative Abilify Maintena IM 300 mg for 01/27/21. Dr. Christensen to consult with pt on 01/27 as well. 01/27/21 Hold Abilify PRITCHETT today s/p seizure. 01/28/21 Discontinue Abilify Maintena Remeron 7.5 mg HS 01/29/21 Klonopin 0.5 mg HS Continue Mirtazapine 01/30/21 Increase Zofran to 8 mg IM HS-pt request as she is having GI distress with new medications. Continue Klonopin/Mirtazapine trial 01/31 and 02/01/21: Ct Rx plan 02/02/21: Ct. current plan. Seizure activity with clearer precipitants Family meeting with pt 02/04 to discuss Abilify Maintena Trial Will provide added educational material in terms of how Abilify may assist pt in symptom mgt. 02/03/21 Seizure activity present Family meeting 02/04/21 Continue current med regime 02/04/21 Family meeting to discuss discharge planning. Pt beginning to discuss her traumatic experience with her brother to her parents. Parents to discuss what their next step is. Pt wants her brother to move from the family home. Tentative plan would be for pt to return to father's home as she cannot smoke cannabis in mother's partners home. Abilify 10 mg po 02/05 and 17 with IM Maintena on 02/07. 02/05/21 Pt took initiative today to review meds and request changes from IM to PO to assist in her arms healing. Continue current plan of care. 02/06/21 Continue current plan of care 02/07/21 Zohra Peralta given Observe for adverse effects. 02/08/21 Continue current plan Pt considering a mood stabilizer for seizure mgt, headache mgt, mood-Will hold as Abilify is new. 02/09/21: Topiramate 25 mg daily Pt asks for second opinion regarding pituitary tumor Discharge planning. 02/10/21 Continue current plan. 02/11/21 No changes today in medications. Continue support, education, modulation work 02/12/21: Start trial of clonidine 0.1 mg BID, as pt is reporting urges to self harm, feeling triggered, has sx of PTSD. Reviewed risks and benefits. 02/13/21: Denies SE on clonidine, reports some improvement in sleep and hyperarousal, continues to endorse sx of PTSD. 02/14/21: Pt's appetite has improved somewhat and pt has been reporting benefit on medications, however says sleep was poor and she continues to endorse sx of PTSD. 02/15/21: Pt reports sx of PTSD, unclear if clonidine has been helpful. Encouraged pt to attend to ADLs. 02/16/21: Abilify 5 mg HS Depakote ER 250 mg HS For now, continue Topiramate-if Depakote is more effective, will taper. 02/17/21 Change Abilify to a.m. dosing Discontinue Topiramate Increase Depakote to ER 500 mg HS Seroquel 50 mg tid prn Lorazepam 1 mg po q4 hours prn anxiety, panic 02/18/21 Continue current plan. 02/19/21 Pt reports no relief from headache nor increase in sleep. Discussed titration of Depakote to 750 mg with labs on 02/23/21-valproate, cbcd, chemp. Tentative COVID vaccine 02/24/21. 02/23/21 Increase Seroquel to 75 mg HS as sleep remains disrupted Neosporin to superficial scratches COVID Booster 02/24/21. Transition to Respite when appropriate 02/25/21 Discontinue Seroquel-pt finds it not helpful. Remeron 7.5 mg HS (believes it was more helpful with her sleep) Lamictal 25 mg HS If Lamictal is tolerated will begin Depakote tapering on 02/26/21. 02/26/21 Increase Remeron to 15 mg hs 02/27/21 Discharge planning and support for Delaney. 02/28- no changes in medications. bright affect, visible. I spent minutes with the patient and/or on the patient floor today, greater than?50% of which was spent counseling/coordinating care. Reason for contiued inpatient stay Substantial Risk for: stable for discharge
[2021-03-01] MEDS: Ondansetron ODT 8 MG TAB.RAPDIS TRANSLINGU (18:51)
[2021-03-01] MEDS: Divalproex Sodium ER 250 MG TAB.ER.24H 750 MG PO (18:53)
[2021-03-01] MEDS: hydrOXYzine HCL 50 MG TABLET PO (18:53)
[2021-03-01] MEDS: Mirtazapine 15 MG TABLET PO (18:54)
[2021-03-01] MEDS: lamoTRIgine 25 MG TABLET PO (18:54)
[2021-03-01] MEDS: NeoMY/Polymyx/Bacit/Ointment 14 GM Tube TOPICAL (18:55)
[2021-03-01 19:05] VITALS: BP 130/86; PULSE 101; RESP 18; TEMP 37; O2SAT 97
[2021-03-02 06:00] VITALS: BP 103/63; PULSE 96; RESP 14; TEMP 37.1; O2SAT 99
[2021-03-02] MEDS: ARIPiprazole 5 MG TABLET PO (08:54)
[2021-03-02] MEDS: cloNIDine HCL 0.1 MG TABLET PO ×2 (08:54→21:12)
[2021-03-02] MEDS: clonazePAM 0.5 MG TABLET PO ×2 (08:54→21:11)
--- NOTE | 2021-03-02 12:35 | P.PNPSI_ITS ---
Subjective Subjective Date of Service: 03/02/21 Reason For Visit: Psychosis Subjective Notes: Conditional Voluntary Healthcare Proxy: No Guardianship: No Medical Problems Affecting Mental Status: No Interim History: Preparing for discharge. Review of medications. Will begin Depakote tapering as she finds it has not been helpful for headache or mood mgt. Termination meeting. Medication Compliance: Yes Side effects from medications: No Attending Groups: Yes Review of Systems Acute medical concerns: No Medical Review of Systems: unchanged Review of Systems Psychiatric: Reports anxiety Mental Status Exam Mental Status Exam Patient Appearance: Appropriate Patient Orientation: Person, Place, Time and Situation Level of Consciousness: Alert Patient Behavior: Appropriate, Talkative, Cooperative and Good Eye Contact Mood Description: Constricted Affect Description: Constricted and Flat Patient Cognition Impaired: No Ability to Follow Directions: Good Speech Pattern: Spontaneous Speech Memory Description: Intact Hallucinations: None Delusions: Not Present Perceptual Disturbances: Depersonalization and Derealization Thought Process: Distracted and Rumination Thought Content: positive for Circumstantial Depressive Symptoms: Increased Anxiety and Thoughts of /Suicide (denies) Judgement: Fair Diagnostics Vital Signs (24Hr): Vital Signs - 24 hr 03/01/21 19:05 03/02/21 06:00 Temperature 98.6 F 98.7 F Pulse Rate 101 H 96 Respiratory Rate 18 14 Blood Pressure 130/86 103/63 Pulse Oximetry 97 99 Labs Results: 02/23/21 08:18 02/23/21 08:18 Imaging Radiology Impressions: ITS Impressions Head CT 01/25/21 11:49 IMPRESSION: 1. There are no acute intracranial bleeds or territorial infarcts. The study partially redemonstrates the fullness in the suprasellar cistern, better shown on the prior MRI scan. 2. There are no acute osseous or soft tissue abnormalities. Medications Medications Current Medications Al Hydroxide/Mg Hydroxide (Magnesium Hydrox/Alum Hydrox 30 Ml Oral.Susp) 30 ml PO Q6H PRN PRN Reason: Heartburn/Nausea Last Admin: 02/13/21 15:43 Dose: 30 ml Documented by: Aripiprazole (Aripiprazole 5 Mg Tablet) 5 mg PO DAILY [facility] Last Admin: 03/02/21 08:54 Dose: 5 mg Documented by: Clonazepam (Clonazepam 0.5 Mg Tablet) 0.5 mg PO BID [facility] Last Admin: 03/02/21 08:54 Dose: 0.5 mg Documented by: Clonidine HCl (Clonidine Hcl 0.1 Mg Tablet) 0.1 mg PO BID [facility]; Protocol Last Admin: 03/02/21 08:54 Dose: 0.1 mg Documented by: Divalproex Sodium (Divalproex Sodium Er 250 Mg Tab.Er.24h) 750 mg PO BEDTIME [facility] Last Admin: 03/01/21 18:53 Dose: 750 mg Documented by: Hydroxyzine HCl (Hydroxyzine Hcl 50 Mg Tablet) 50 mg PO BEDTIME [facility] Last Admin: 03/01/21 18:53 Dose: 50 mg Documented by: Hydroxyzine HCl (Hydroxyzine Hcl 25 Mg Tablet) 25 mg PO TID PRN PRN Reason: anxiety Last Admin: 02/28/21 23:36 Dose: 25 mg Documented by: Lamotrigine (Lamotrigine 25 Mg Tablet) 25 mg PO BEDTIME [facility] Last Admin: 03/01/21 18:54 Dose: 25 mg Documented by: Lorazepam (Lorazepam 2 Mg/Ml Vial) 1 mg IM BID PRN PRN Reason: Seizure activity Last Admin: 02/24/21 23:53 Dose: 1 mg Documented by: Lorazepam (Lorazepam 1 Mg Tablet) 1 mg PO Q4H PRN PRN Reason: Anxiety Last Admin: 03/01/21 00:03 Dose: 1 mg Documented by: Magnesium Hydroxide (Milk Of Magnesia 30 Ml Oral.Susp) 30 ml PO DAILY PRN PRN Reason: Constipation Mirtazapine (Mirtazapine 15 Mg Tablet) 15 mg PO BEDTIME [facility] Last Admin: 03/01/21 18:54 Dose: 15 mg Documented by: Neomycin/Polymyxin/Bacitracin (Neomy/Polymyx/Bacit/Ointment 14 Gm Tube) 1 gm TOPICAL BID [facility]; Protocol Last Admin: 03/02/21 09:06 Dose: Not Given Documented by: Ondansetron HCl (Ondansetron Odt 8 Mg Tab.Rapdis) 8 mg TRANSLINGU BEDTIME [facility] Last Admin: 03/01/21 18:51 Dose: 8 mg Documented by: Ondansetron HCl (Ondansetron Odt 4 Mg Tab.Rapdis) 4 mg TRANSLINGU DAILY PRN PRN Reason: Nausea Last Admin: 02/24/21 18:18 Dose: 4 mg Documented by: Allergies Allergies Allergy/AdvReac Type Severity Reaction Status Date / Time metoclopramide [From Reglan] Allergy Muscle Verified 01/08/21 20:46 cramps haloperidol [From Haldol] AdvReac Severe Dystonia Verified 01/08/21 20:46 sucralfate [From Carafate] AdvReac Severe vomiting Verified 01/08/21 20:46 band-aids AdvReac Intermediate skin Uncoded 02/04/21 17:52 irritation Assessment & Plan Assessment & Plan (1) PTSD (post-traumatic stress disorder): Status: Acute Code(s): F43.10 - Post-traumatic stress disorder, unspecified (2) Schizoaffective disorder, bipolar type: Status: Acute Code(s): F25.0 - Schizoaffective disorder, bipolar type Assessment and Plan: 25 yo female returns to after extensive medical evaluation of seizure activity. 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 Pt also with inability to swallow medications due to nausea, vomiting, abdominal pain. GI t esting is negative thus far. Discussed with Delaney the next step in her treatment. Discussed possible conversion reactions secondary to PTSD which she agrees is a strong possiblity. Asked if she would consider referral to [place] if we were able and she declined. She is willing to trial a new out pt therapist (female only) and will do a 14 day Abilify po trial with IM Zofran with the plan to transition to [facility]. Plan: 1. Ensure tid with meals-vanilla only. 2. Ativan 1 mg IM prn seizure activity 3. Zofran 4 mg IM HS prior to Abilify dosing 4. Abilify 10 mg HS. Weekend Coverage: 01/24- Pt continues to have episodes of pseudoseizures in the evening, appears to be responding well to IM hydroxyzine 50 mg at bedtime. Will continue abilify PO trial with IM zofran. 01/25- Will discontinue hydroxyzine PO PRN, as pt prefers IM due to reported GI distress. Discussed with primary provider and will start abilify maintena 300 mg AM. Pt denies adverse effects on PO abilify, tolerating it well. Continues to have pseudoseizure in evening. Discussed with hospitalist, who recommended icu staff nurse contact hospitalist, direct pt to bed, and continue to use hydroxyzine IM PRN or ativan IM PRN for relief. 01/26/21 Tentative Abilify Maintena IM 300 mg for 01/27/21. Dr. Christensen to consult with pt on 01/27 as well. 01/27/21 Hold Abilify PRITCHETT today s/p seizure. 01/28/21 Discontinue Abilify Maintena Remeron 7.5 mg HS 01/29/21 Klonopin 0.5 mg HS Continue Mirtazapine 01/30/21 Increase Zofran to 8 mg IM HS-pt request as she is having GI distress with new medications. Continue Klonopin/Mirtazapine trial 01/31 and 02/01/21: Ct Rx plan 02/02/21: Ct. current plan. Seizure activity with clearer precipitants Family meeting with pt 02/04 to discuss Abilify Maintena Trial Will provide added educational material in terms of how Abilify may assist pt in symptom mgt. 02/03/21 Seizure activity present Family meeting 02/04/21 Continue current med regime 02/04/21 Family meeting to discuss discharge planning. Pt beginning to discuss her traumatic experience with her brother to her parents. Parents to discuss what their next step is. Pt wants her brother to move from the family home. Tentative plan would be for pt to return to father's home as she cannot smoke cannabis in mother's partners home. Abilify 10 mg po 02/05 and with IM Maintena on 02/07. 02/05/21 Pt took initiative today to review meds and request changes from IM to PO to assist in her arms healing. Continue current plan of care. 02/06/21 Continue current plan of care 02/07/21 Abilify Maintena given Observe for adverse effects. 02/08/21 Continue current plan Pt considering a mood stabilizer for seizure mgt, headache mgt, mood-Will hold as Abilify is new. 02/09/21: Topiramate 25 mg daily Pt asks for second opinion regarding pituitary tumor Discharge planning. 02/10/21 Continue current plan. 02/11/21 No changes today in medications. Continue support, education, modulation work 02/12/21: Start trial of clonidine 0.1 mg BID, as pt is reporting urges to self harm, feeling triggered, has sx of PTSD. Reviewed risks and benefits. 02/13/21: Denies SE on clonidine, reports some improvement in sleep and hyperarousal, cont inues to endorse sx of PTSD. 02/14/21: Pt's appetite has improved somewhat and pt has been reporting benefit on medications, however says sleep was poor and she continues to endorse sx of PTSD. 02/15/21: Pt reports sx of PTSD, unclear if clonidine has been helpful. Encouraged pt to attend to ADLs. 02/16/21: Abilify 5 mg HS Depakote ER 250 mg HS For now, continue Topiramate-if Depakote is more effective, will taper. 02/17/21 Change Abilify to a.m. dosing Discontinue Topiramate Increase Depakote to ER 500 mg HS Seroquel 50 mg tid prn Lorazepam 1 mg po q4 hours prn anxiety, panic 02/18/21 Continue current plan. 02/19/21 Pt reports no relief from headache nor increase in sleep. Discussed titration of Depakote to 750 mg with labs on 02/23/21-valproate, cbcd, chemp. Tentative COVID vaccine 02/24/21. 02/23/21 Increase Seroquel to 75 mg HS as sleep remains disrupted Neosporin to superficial scratches COVID Booster 02/24/21. Transition to Respite when appropriate 02/25/21 Discontinue Seroquel-pt finds it not helpful. Remeron 7.5 mg HS (believes it was more helpful with her sleep) Lamictal 25 mg HS If Lamictal is tolerated will begin Depakote tapering on 02/26/21. 02/26/21 Increase Remeron to 15 mg hs 02/27/21 Discharge planning and support for Delaney. 02/28- no changes in medications. bright affect, visible. 03/02/21- Review of medications Depakote tapering Discharge 03/03/21. I spent 30 minutes with the patient and/or on the patient floor today, greater than?50% of which was spent counseling/coordinating care. Patient educated on: medication risk/benefits Informed Consent: understands Reason for contiued inpatient stay Substantial Risk for: stable for discharge
[2021-03-02 14:07] LABS: COVID-19 Test Negative (Negative)
--- NOTE | 2021-03-02 20:09 | PC.NURSE ---
Patient went to get her laundry out of the dryer and commented, I can't believe they want me to be taking Depakote with the fu*kng brain tumor I have . She further stated I'm going to talk to her [provider] in the morning .
[2021-03-02] MEDS: Ondansetron ODT 8 MG TAB.RAPDIS TRANSLINGU (20:11)
[2021-03-02] MEDS: hydrOXYzine HCL 50 MG TABLET PO (21:11)
[2021-03-02] MEDS: Divalproex Sodium ER 500 MG TAB.ER.24H PO (21:11)
[2021-03-02] MEDS: lamoTRIgine 25 MG TABLET PO (21:11)
[2021-03-02] MEDS: Mirtazapine 15 MG TABLET PO (21:12)
[2021-03-02 21:15] VITALS: BP 109/61; PULSE 73; TEMP 36.6; O2SAT 100
[2021-03-02] MEDS: LORazepam 1 MG TABLET PO (23:13)
[2021-03-03 05:43] VITALS: BP 94/52; PULSE 76; RESP 16; TEMP 36.5; O2SAT 96
[2021-03-03] MEDS: cloNIDine HCL 0.1 MG TABLET PO (09:53)
[2021-03-03] MEDS: ARIPiprazole 5 MG TABLET PO (09:53)
[2021-03-03] MEDS: clonazePAM 0.5 MG TABLET PO (09:53)
[2021-03-03] MEDS: NeoMY/Polymyx/Bacit/Ointment 14 GM Tube TOPICAL (09:56)
--- NOTE | 2021-03-04 11:49 | P.DS_ITS ---
DS: Providers Provider Date of Service: 03/03/21 Date of admission: 01/22/21 18:50 Date of discharge: 03/03/21 Primary care physician: Unknown Physician Admitting clinician: Joann White Attending physician on admission: Mat Christensen Consults: 02/04/21 17:52 Consult to Hospitalist Routine Consulting Provider: Hospitalist Reason For Exam: cellulitis upper arm-pt has daily injections Attending physician on discharge: Mat Christensen Discharging clinician: Joann White DS: Diagnosis Discharge Diagnosis (1) PTSD (post-traumatic stress disorder): Status: Acute (2) Schizoaffective disorder, bipolar type: Status: Acute DS: Medications Discharge Medications Home Medications: Previous Rx's Medication Instructions Recorded aripiprazole 300 mg intramuscular 300 mg IM QMONTH #1 ea 03/02/21 suspension,extended release (Abilify Maintena) aripiprazole 5 mg tablet (Abilify) 5 mg PO DAILY #30 tab 03/02/21 clonazepam 0.5 mg tablet 0.5 mg PO BID #60 tab 03/02/21 clonidine HCl 0.1 mg tablet 0.1 mg PO BID #60 tab 03/02/21 divalproex 250 mg tablet,extended 250 mg PO DAILY #3 tab 03/02/21 release 24 hr (Depakote ER) divalproex 500 mg tablet,extended 500 mg PO BEDTIME #3 tab 03/02/21 release 24 hr hydroxyzine HCl 25 mg tablet 25 mg PO TID PRN #90 tab 03/02/21 hydroxyzine HCl 50 mg tablet 50 mg PO BEDTIME #30 tab 03/02/21 lamotrigine 25 mg tablet 25 mg PO BEDTIME #30 tab 03/02/21 lorazepam 1 mg tablet 1 mg PO Q4H PRN #60 tab 03/02/21 mirtazapine 15 mg tablet 15 mg PO BEDTIME #30 tab 03/02/21 neomycin-bacitracn Zn-polymyx 3.5 1 g TOPICAL BID #1 g 03/02/21 mg-400 unit-5,000 unit/gram top oint (Triple Antibiotic) ondansetron 4 mg disintegrating 4 mg TRANSLINGUAL DAILY PRN #30 tab 03/02/21 tablet ondansetron 8 mg disintegrating 8 mg TRANSLINGUAL BEDTIME #30 tab 03/02/21 tablet Mental Status Exam Mental Status Exam Patient Appearance: Appropriate Patient Orientation: Person, Place, Time and Situation Level of Consciousness: Alert Patient Behavior: Appropriate, Talkative, Cooperative and Good Eye Contact Mood Description: Constricted Affect Description: Constricted and Flat Patient Cognition Impaired: No Ability to Follow Directions: Good Speech Pattern: Spontaneous Speech Memory Description: Intact Hallucinations: None Delusions: Not Present Perceptual Disturbances: Depersonalization and Derealization Thought Process: Distracted and Rumination Thought Content: positive for Circumstantial Depressive Symptoms: Increased Anxiety and Thoughts of /Suicide (denies) Judgement: Fair Data Data Completed and Pending Completed studies during hospitalization [Text1]: 03/02/21 13:33 COVID-19 ([facility]ANE) Negative COVID-19 Clin Com See Note Imaging Diagnostic Imaging Impressions Head CT 01/25/21 11:49 IMPRESSION: 1. There are no acute intracranial bleeds or territorial infarcts. The study partially redemonstrates the fullness in the suprasellar cistern, better shown on the prior MRI scan. 2. There are no acute osseous or soft tissue abnormalities. DS: Summary Hospital Course Hospital Course: Pt initially admitted 12/08/20 to adult psychiatry to address symptoms of PTSD, Schizoaffective Disorder, Bipolar type. Subsequent medical transfers due to seizure activity which medically the team reports are non-epileptic in origin. Pt was found to have a pituitary adenoma which at this time the recommendation is for monitoring via MRI every six months. Pt plans a second opinion in addition to monitoring. During this portion of the admission, pt was more tolerant of PO medication trials. Abilify Maintena was initiated and tolerated. Seizure activity continued, however decreased in frequency and intensity as Delaney was closer to discharge. She was involved in the milieu, continued with mood symptoms throughout, however, was willing and able to make some choices and decisions regarding her treatment plan to allow her to move forward. She accepted [facility] services along with an offer for respite admission. Abilify Maintena initial dosing was tolerated, she was able to add PO Abilify which she had originally refused as well. Klonopin was initiated for anxiety, as was Clonidine. Remeron was given for insomnia. Depakote was trialed with pt reporting no effect upon mood, headache mgt or seizure quality. This was in process of tapering and cross titrating with Lamictal upon discharge Time spent discussing smoking cessation with patient: 3 to 10 minutes Status at Discharge Functional status at discharge: independent ambulation Overall status at discharge: patient is progressing back to baseline Time Spent with Patient Time attestation: Total time spent providing and/or coordinating discharge services: 35 Time spent: Greater than 30 minutes Discharge Plan Discharge Patient Disposition: Xfer to Respite Facility Discharge Diagnosis: PTSD Schizoaffective Disorder, Bipolar Type Referrals: Sara Harding, TRANSITIONS MANAGER RN [Nurse Practitioner] - 1 Week (PROVIDER WASNT ANSWERING PHONE CALLS. A MESSAGE WAS LEFT FOR FOR A CALL BACK FOR A FOLLOW-UP APPOINTMENT ) Discharge Medications: New clonidine HCl 0.1 mg Tablet 0.1 mg PO BID Qty: 60 RF: 0 Triple Antibiotic 3.5mg-400 unit- 5,000 unit/gram Ointment 1 g topical BID Qty: 1 RF: 0 clonazepam 0.5 mg Tablet 0.5 mg PO BID Qty: 60 RF: 0 hydroxyzine HCl 50 mg Tablet 50 mg PO BEDTIME Qty: 30 RF: 0 ondansetron 8 mg Tablet,Disintegrating 8 mg translingual BEDTIME Qty: 30 RF: 0 lamotrigine 25 mg Tablet 25 mg PO BEDTIME Qty: 30 RF: 0 divalproex 500 mg Tablet Extended Release 24 Hr 500 mg PO BEDTIME Qty: 3 RF: 0 hydroxyzine HCl 25 mg Tablet 25 mg PO TID PRN (Reason: anxiety) Qty: 90 RF: 0 mirtazapine 15 mg Tablet 15 mg PO BEDTIME Qty: 30 RF: 0 lorazepam 1 mg Tablet 1 mg PO Q4H PRN (Reason: Anxiety) Qty: 60 RF: 0 ondansetron 4 mg Tablet,Disintegrating 4 mg translingual DAILY PRN (Reason: Nausea) Qty: 30 RF: 0 aripiprazole [Abilify] 5 mg Tablet 5 mg PO DAILY Qty: 30 RF: 0 Abilify Maintena 300 mg suspension,extended rel recon 300 mg IM QMONTH Qty: 1 RF: 0 divalproex [Depakote ER] 250 mg tablet extended release 24 hr 250 mg PO DAILY Qty: 3 RF: 0 Discontinued scopolamine base 1 mg over 3 days Patch 3 Day 1 patch TRANSDERMAL Q3D RF: 0 Hold Instructions: MD decision ondansetron 4 mg tablet,disintegrating 0.5 tab PO Q6-8H PRN (Reason: Nausea) RF: 0 lansoprazole 30 mg tablet,disintegrat, delay rel 30 mg PO DAILY RF: 0 bupropion HCl 300 mg tablet extended release 24 hr 1 tab PO DAILY RF: 0 Hold Instructions: MD shaikh L norgest/e.estradiol-e.estrad 0.15 mg-30 mcg (84)/10 mcg (7) tablets,dose pack,3 month 1 tab PO DAILY RF: 0 Hold Instructions: MD shaikh Discharge Orders: Discharge Order (Routine); Ordered 03/03/21 Ordered By: Joann White Diet: advance to usual diet Activity on Discharge: As tolerated Stand Alone Forms: Patient Portal Discharge page Care Plan Goals: Mood Stabilization Health Concerns: PTSD Schizoaffective Disorder, Bipolar Type Pituitary neoplasm IBS with food/medicine intolerances at times Plan of Treatment: Attend scheduled appointments Take medications as directed Zohra Peralta injection is due on 03/10/21 Follow up with speciality appointments- GI, Endocrine Assessment: non-psychotic, non-suicidal Discharge Date/Time: 03/03/21 14:25
== END 2021-03-03 14:25 | DRG 885 ==
PROVIDERS: Admitting Provider Psychiatry & Neurology Psychiatry; Visit Provider Clinical Nurse Specialist Psychiatric/Mental Health, Adult
DX: F25.0 Schizoaffective disorder, bipolar type (principal); F43.10 Post-traumatic stress disorder, unspecified; F44.5 Conversion disorder with seizures or convulsions; Z91.52 Personal history of nonsuicidal self-harm; Z20.822 Contact with and (suspected) exposure to COVID-19; Z79.899 Other long term (current) drug therapy
CPT/HCPCS: 36415; 70450; 80053; 80164; 82947; 85025; 87635; J0401; J1885; J2060; J2405

== ENCOUNTER 2021-03-11 14:18 | Emergency (ER) | payer OTHER, SELFPAY ==
--- NOTE | 2021-03-11 14:38 | ED_ITS ---
HPI - General Adult General Chief complaint: Seizure Stated complaint: reported seizure for 25 minutes Time Seen by Provider: 03/11/21 14:23 Source: patient and EMS Mode of arrival: EMS Limitations: no limitations History of Present Illness HPI narrative: this is a 25 years old of female was brought here by ambulance from a psychiatric facility ([facility]) for possible seizure. The facility states that she was seizing for about 20 minutes, she was given 2 mg of Versed IM by the EMS she had IV awake and alert in no distress no postictal. Patient has no complaining at this time she is awake and alert no focal. Patient was also utilized the [facility] discharge on January 21 the 2020 she was discharged with the diagnosis no known epileptic seizure, she was seen neurologist Dr. Tierney, she had the EEG which was normal, she had an LP which was unremarkable, the MRI of the brain showed pituitary micro adenoma. Onset (ago): hour(s) (1 h ago) Radiation: non-radiation Severity: mild Pain Consistency: intermittent Relieving factors: none Exacerbating factors: none Associated symptoms: denies other symptoms Related Data Previous Rx's Medication Instructions Recorded aripiprazole 300 mg intramuscular 300 mg IM QMONTH #1 ea 03/02/21 suspension,extended release (Abilify Maintena) aripiprazole 5 mg tablet (Abilify) 5 mg PO DAILY #30 tab 03/02/21 clonazepam 0.5 mg tablet 0.5 mg PO BID #60 tab 03/02/21 clonidine HCl 0.1 mg tablet 0.1 mg PO BID #60 tab 03/02/21 divalproex 250 mg tablet,extended 250 mg PO DAILY #3 tab 03/02/21 release 24 hr (Depakote ER) divalproex 500 mg tablet,extended 500 mg PO BEDTIME #3 tab 03/02/21 release 24 hr hydroxyzine HCl 25 mg tablet 25 mg PO TID PRN #90 tab 03/02/21 hydroxyzine HCl 50 mg tablet 50 mg PO BEDTIME #30 tab 03/02/21 lamotrigine 25 mg tablet 25 mg PO BEDTIME #30 tab 03/02/21 lorazepam 1 mg tablet 1 mg PO Q4H PRN #60 tab 03/02/21 mirtazapine 15 mg tablet 15 mg PO BEDTIME #30 tab 03/02/21 neomycin-bacitracn Zn-polymyx 3.5 1 g TOPICAL BID #1 g 03/02/21 mg-400 unit-5,000 unit/gram top oint (Triple Antibiotic) ondansetron 4 mg disintegrating 4 mg TRANSLINGUAL DAILY PRN #30 03/02/21 tab tablet ondansetron 8 mg disintegrating 8 mg TRANSLINGUAL BEDTIME #30 tab 03/02/21 tablet Allergies Allergy/AdvReac Type Severity Reaction Status Date / Time metoclopramide Allergy Muscle Verified 01/08/21 20:46 [From Reglan] cramps haloperidol [From AdvReac Severe Dystonia Verified 01/08/21 20:46 Haldol] sucralfate [From AdvReac Severe vomiting Verified 01/08/21 20:46 Carafate] band-aids AdvReac Intermediate skin Uncoded 02/04/21 17:52 irritation Review of Systems Verdana 4l Review of Systems: Verdana 4d There is no fever, no Verdana 4d vomiting, no diarrhea Verdana 4d Verdana 4l Eyes: Verdana 4d Verdana 4d Eyes: Verdana 4d Reports no additional eye complaints Verdana 4l Cardiovascular: Verdana 4d Cardiovascular: Verdana 4d Verdana 4d Reports no additional cardiovascular complaints Verdana 4l Neurologic: Verdana 4d Reports system reviewed and no additional complaints, except as documented PMFSH Past Medical History Medical History Anxiety Depression IBS (irritable bowel syndrome) PTSD (post-traumatic stress disorder) Schizoaffective disorder, bipolar type Schizoaffective disorder, depressive type Schizophrenia Schizophrenia Umbilical hernia Surgical History History of cholecystectomy Social History Social History Household Members: Family Household Members Other:: dad & brother Housing: House Do you presently have visiting nurse or other home services: No Unable to assess alcohol history related to: Unknown Patient Tobacco Use Status: Former Tobacco user Tobacco use type: Cigarette e-Cigarette/Vaping Use: Never Used Second Hand Smoke Exposure: No Substance Use Type: Marijuana Advance Directives: No Advance Directives Information Provided: No service: No Current occupational status: disabled Sexual orientation: Lesbian/Greer/Homosexual Physical Exam Verdana 4l Vital Signs: Verdana 4d Verdana 4d Vital Signs: Verdana 4d Verdana 4Bd Last Vital Signs Verdana 4d Road Equipment Operator New 4d Road Equipment Operator New 4d Temp 97.8 F 03/11/21 17:01 Road Equipment Operator New 4d Pulse 73 03/11/21 17:01 Road Equipment Operator New 4d Resp 18 03/11/21 17:01 BP 100/65 03/11/21 17:01 Pulse Ox 100 03/11/21 17:01 BMI result Body Mass Index 26.5 she is awake and alert in not acute distress Const: General: cooperative, comfortable and no acute distress Nutritional Appearance: average body habitus Orientation/consciousness: patient oriented x3 Limitations: no limitations HENMT: Head: Yes normal to inspection Face and sinus: Yes normal facial exam Neck: Neck: Yes normal visual inspection, Yes full ROM and Yes no lymphadenopathy Chest: Chest palpation & inspection: normal inspection of the chest Resp: Effort & Inspection: normal respiratory effort Auscultation: clear to auscultation bilaterally Cardio: Jugular venous distension: no JVD Rate: regular rate Rhythm: regular rhythm GI: Inspection: Yes normal to inspection Palpation (GI): Soft to palpation, not firm, nontender and no guarding : General: Yes no CVA tenderness Back/Spine/Pelvis: Back: no CVA tenderness Skin: General skin exam: no rashes or lesions noted Rashes: no rashes Neuro: General: patient oriented x3 Cranial nerves: Yes CN's II-XII intact bilaterally Course Reevaluation(s) Reevaluation #1: I spoke with Mag Santiago from the [facility] respite [phone] pt was sitting in the chair and she was shaking all over Reevaluation #2: she remains stable clinically no seizure observed, we are waiting for the blood work result anticipated discharge if the blood work okay Medical Decision Making MDM Narrative Medical decision making narrative: this is a 25 years old with psychiatric history and history of pseudo-seizure according to the medical record brought in for a possible seizure. We will get some blood work monitor the patient for a couple hours anticipate discharge Lab Data Result diagrams: 03/11/21 16:06 03/11/21 16:05 Labs: Lab Results 01/03/11/21 03/11/21 Range/Units 15:07 15:07 16:05 WBC (4.8-10.8) X10*3/uL RBC (4.20-5.50) X10*6/uL Hgb (12.0-16.0) g/dl Hct (37.0-47.0) % MCV (80.0-98.0) fL MCH (27.0-33.0) pg MCHC (31.0-35.0) g/dl RDW (11.0-16.0) % Plt Count (160-400) X10*3/uL MPV (9.4-12.3) fL Immature Gran % (0.0-0.4) % (Auto) Neut % (Auto) (45-73) % Lymph % (Auto) (20-40) % Thomas % (Auto) (2-11) % Eos % (Auto) (0-4) % Baso % (Auto) (0-2) % Lymph # (Auto) (1.2-4.9) X10*3/uL Thomas # (Auto) (0.1-1.2) X10*3/uL Eos # (Auto) (0.0-0.4) X10*3/uL Baso # (Auto) (0.0-0.2) X10*3/uL Abs Immat Gran (auto) (0.00-0.03) X10*3/uL Absolute Neuts (auto) (2.0-8.3) x10*3/uL Absolute Nucleated (0.0-0.012) RBC X10*3/uL Nucleated RBC % (0.0-0.2) /100WBC (auto) Sodium 137 (135-145) mmol/L Potassium 5.2 H (3.3-5.1) mmol/L Chloride 106 (96-108) mmol/L Carbon Dioxide 22 (22-29) mmol/L Anion Gap 14 (12-20) BUN 14 D (9-16) mg/dL Creatinine 0.79 (0.5-1.4) mg/dL Estim Creat Clear 100.7 Calc Estimated GFR > 60 Random Glucose 82 (60-115) mg/dL Calcium 9.8 (8.4-10.2) mg/dL Total Bilirubin 0.3 (0.0-1.0) mg/dL AST 25 D (5-31) U/L ALT 14 (0-31) U/L Alkaline Phosphatase 76 (39-117) U/L Total Protein 8.8 H D (6.5-8.0) g/dL Albumin 4.4 (3.5-5.0) g/dL Beta HCG, Quant < 2 mIU/mL Urine Color YELLOW Urine Appearance CLEAR Urine pH 5.5 (5.0-8.0) Ur Specific [place] <= 1.005 (1.005-1.025) Urine Protein NEG (NEG-TRACE) MG/DL Urine Glucose (UA) NEG (NEG) MG/DL Urine Ketones NEG (NEG) MG/DL Urine Blood NEG (NEG) Urine Nitrite NEG (NEG) Ur Leukocyte Esterase NEG (NEG) Urine RBC 0 (0) /HPF Urine WBC 0 (0-4) /HPF Ur Squamous Epith TRACE /LPF Cells Urine Bacteria TRACE /LPF Urine Opiates Screen Not Detected (Not Detect) Urine Fentanyl Screen Not Detected (Not Detect) Ur Barbiturates Not Detected (Not Detect) Screen Ur Phencyclidine Scrn Not Detected (Not Detect) Ur Amphetamines Not Detected (Not Detect) Screen U Benzodiazepines POSITIVE H (Not Detect) Scrn Urine Cocaine Screen Not Detected (Not Detect) U Marijuana (THC) Not Detected (Not Detect) Screen 03/11/21 Range/Units 16:06 WBC 3.8 L (4.8-10.8) X10*3/uL RBC 4.86 D (4.20-5.50) X10*6/uL Hgb 15.4 D (12.0-16.0) g/dl Hct 47.2 H D (37.0-47.0) % MCV 97.1 (80.0-98.0) fL MCH 31.7 (27.0-33.0) pg MCHC 32.6 (31.0-35.0) g/dl RDW 12.4 (11.0-16.0) % Plt Count 190 D (160-400) X10*3/uL MPV 9.4 (9.4-12.3) fL Immature Gran % (Auto) 0.0 (0.0-0.4) % Neut % (Auto) 54.6 (45-73) % Lymph % (Auto) 34.8 (20-40) % Thomas % (Auto) 8.8 (2-11) % Eos % (Auto) 1.3 (0-4) % Baso % (Auto) 0.5 (0-2) % Lymph # (Auto) 1.3 (1.2-4.9) X10*3/uL Thomas # (Auto) 0.3 (0.1-1.2) X10*3/uL Eos # (Auto) 0.1 (0.0-0.4) X10*3/uL Baso # (Auto) 0.0 (0.0-0.2) X10*3/uL Abs Immat Gran (auto) 0.00 (0.00-0.03) X10*3/uL Absolute Neuts (auto) 2.1 (2.0-8.3) x10*3/uL Absolute Nucleated RBC 0.000 (0.0-0.012) X10*3/uL Nucleated RBC % (auto) 0.0 (0.0-0.2) /100WBC Sodium (135-145) mmol/L Potassium (3.3-5.1) mmol/L Chloride (96-108) mmol/L Carbon Dioxide (22-29) mmol/L Anion Gap (12-20) BUN (9-16) mg/dL Creatinine (0.5-1.4) mg/dL Estim Creat Clear Calc Estimated GFR Random Glucose (60-115) mg/dL Calcium (8.4-10.2) mg/dL Total Bilirubin (0.0-1.0) mg/dL AST (5-31) U/L ALT (0-31) U/L Alkaline Phosphatase (39-117) U/L Total Protein (6.5-8.0) g/dL Albumin (3.5-5.0) g/dL Beta HCG, Quant mIU/mL Urine Color Urine Appearance Urine pH (5.0-8.0) Ur Specific [place] (1.005-1.025) Urine Protein (NEG-TRACE) MG/DL Urine Glucose (UA) (NEG) MG/DL Urine Ketones (NEG) MG/DL Urine Blood (NEG) Urine Nitrite (NEG) Ur Leukocyte Esterase (NEG) Urine RBC (0) /HPF Urine WBC (0-4) /HPF Ur Squamous Epith Cells /LPF Urine Bacteria /LPF Urine Opiates Screen (Not Detect) Urine Fentanyl Screen (Not Detect) Ur Barbiturates Screen (Not Detect) Ur Phencyclidine Scrn (Not Detect) Ur Amphetamines Screen (Not Detect) U Benzodiazepines Scrn (Not Detect) Urine Cocaine Screen (Not Detect) U Marijuana (THC) Screen (Not Detect) Discharge Plan Discharge Clinical Impression: Pseudoseizure Patient Disposition: Home, Self-Care Instructions: Recurrent Seizures in Adults (ED) Additional Instructions: follow-up with your primary care physician, return to emergency room if you worse, fever vomiting any concern Prescriptions: No Action clonidine HCl 0.1 mg Tablet 0.1 mg PO BID Qty: 60 0RF Protocol: Hold for SBP< HOLD for SBP < : 90 Triple Antibiotic 3.5mg-400 unit- 5,000 unit/gram Ointment 1 g topical BID Qty: 1 0RF Protocol: Apply to: Apply to: forearm clonazepam 0.5 mg Tablet 0.5 mg PO BID Qty: 60 0RF hydroxyzine HCl 50 mg Tablet 50 mg PO BEDTIME Qty: 30 0RF ondansetron 8 mg Tablet,Disintegrating 8 mg translingual BEDTIME Qty: 30 0RF lamotrigine 25 mg Tablet 25 mg PO BEDTIME Qty: 30 0RF divalproex 500 mg Tablet Extended Release 24 Hr 500 mg PO BEDTIME Qty: 3 0RF hydroxyzine HCl 25 mg Tablet 25 mg PO TID PRN (Reason: anxiety) Qty: 90 0RF mirtazapine 15 mg Tablet 15 mg PO BEDTIME Qty: 30 0RF lorazepam 1 mg Tablet 1 mg PO Q4H PRN (Reason: Anxiety) Qty: 60 0RF ondansetron 4 mg Tablet,Disintegrating 4 mg translingual DAILY PRN (Reason: Nausea) Qty: 30 0RF aripiprazole [Abilify] 5 mg Tablet 5 mg PO DAILY Qty: 30 0RF Abilify Maintena 300 mg suspension,extended rel recon 300 mg IM QMONTH Qty: 1 0RF Rx Instructions: Injection Due on 03/10/21. divalproex [Depakote ER] 250 mg tablet extended release 24 hr 250 mg PO DAILY Qty: 3 0RF Rx Instructions: Take Depakote ER 500 mg at bedtime for three days- Mar 03, , Take Depakote ER 250 mg at bedtime for three days-Mar 06, , 16 Discontinue after that. Referrals: Sara Harding, HEAD PORTER [Primary Care Provider] - 2 days Interventions: ED Discharge Assessment Last Done: 03/11/21 17:31 Discharge Date/Time: 03/11/21 17:31
[2021-03-11 14:52] VITALS: BP 121/74; PULSE 74; RESP 18; TEMP 36.6; O2SAT 100; BMI 26.5
[2021-03-11] MEDS: 0.9 % Sodium Chloride 1,000 ML 999 ML IVCONT (15:10)
[2021-03-11] MEDS: LORazepam 1 MG TABLET PO (15:10)
[2021-03-11 15:13] LABS: Appearance Urine CLEAR; Color Urine YELLOW; Glucose Urine UA NEG (NEG); Leukocyte Esterase Urine NEG (NEG); Nitrite Urine NEG (NEG); PH 5.5 (5.0-8.0); Specific Gravity - Urine <= 1.005 (1.005-1.025); Urine Blood NEG (NEG); Urine Ketones NEG (NEG); Urine Protein NEG (NEG-TRACE)
[2021-03-11 15:20] LABS: Bacteria Urine TRACE /LPF; RBC Urine 0 /HPF (0); Squamous Epithelial Cell Urine TRACE /LPF; WBC Urine 0 /HPF (0-4)
[2021-03-11 15:28] LABS: Amphetamine Screen Urine Not Detected (Not Detect); Barbiturates, Urine Not Detected (Not Detect); Benzodiazepines Screen Urine POSITIVE (Not Detect); Cannabinoid Screen Urine Not Detected (Not Detect); Cocaine Screen Urine Not Detected (Not Detect); Fentanyl, urine Not Detected (Not Detect); Opiate Screen Urine Not Detected (Not Detect); Phencyclidine Screen Urine Not Detected (Not Detect)
--- NOTE | 2021-03-11 16:06 | ED_ITS ---
HPI - Seizure General Chief Complaint: Seizure Stated Complaint: reported seizure for 25 minutes Time Seen by Provider: 03/11/21 14:23 Source: patient and EMS Mode of arrival: EMS Limitations: no limitations History of Present Illness Seizure History: Yes Related Data Previous Rx's Medication Instructions Recorded aripiprazole 300 mg intramuscular 300 mg IM QMONTH #1 ea 03/02/21 suspension,extended release (Abilify Maintena) aripiprazole 5 mg tablet (Abilify) 5 mg PO DAILY #30 tab 03/02/21 clonazepam 0.5 mg tablet 0.5 mg PO BID #60 tab 03/02/21 clonidine HCl 0.1 mg tablet 0.1 mg PO BID #60 tab 03/02/21 divalproex 250 mg tablet,extended 250 mg PO DAILY #3 tab 03/02/21 release 24 hr (Depakote ER) divalproex 500 mg tablet,extended 500 mg PO BEDTIME #3 tab 03/02/21 release 24 hr hydroxyzine HCl 25 mg tablet 25 mg PO TID PRN #90 tab 03/02/21 hydroxyzine HCl 50 mg tablet 50 mg PO BEDTIME #30 tab 03/02/21 lamotrigine 25 mg tablet 25 mg PO BEDTIME #30 tab 03/02/21 lorazepam 1 mg tablet 1 mg PO Q4H PRN #60 tab 03/02/21 mirtazapine 15 mg tablet 15 mg PO BEDTIME #30 tab 03/02/21 neomycin-bacitracn Zn-polymyx 3.5 1 g TOPICAL BID #1 g 03/02/21 mg-400 unit-5,000 unit/gram top oint (Triple Antibiotic) ondansetron 4 mg disintegrating 4 mg TRANSLINGUAL DAILY PRN #30 03/02/21 tab tablet ondansetron 8 mg disintegrating 8 mg TRANSLINGUAL BEDTIME #30 tab 03/02/21 tablet Allergies Allergy/AdvReac Type Severity Reaction Status Date / Time metoclopramide Allergy Muscle Verified 01/08/21 20:46 [From Reglan] cramps haloperidol [From AdvReac Severe Dystonia Verified 01/08/21 20:46 Haldol] sucralfate [From AdvReac Severe vomiting Verified 01/08/21 20:46 Carafate] band-aids AdvReac Intermediate skin Uncoded 02/04/21 17:52 irritation PMFSH Past Medical History Medical History Anxiety Depression IBS (irritable bowel syndrome) PTSD (post-traumatic stress disorder) Schizoaffective disorder, bipolar type Schizoaffective disorder, depressive type Schizophrenia Schizophrenia Umbilical hernia Surgical History History of cholecystectomy Social History Social History Household Members: Family Household Members Other:: dad & brother Housing: House Do you presently have visiting nurse or other home services: No Unable to assess alcohol history related to: Unknown Patient Tobacco Use Status: Former Tobacco user Tobacco use type: Cigarette e-Cigarette/Vaping Use: Never Used Second Hand Smoke Exposure: No Substance Use Type: Marijuana Advance Directives: No Advance Directives Information Provided: No service: No Current occupational status: disabled Sexual orientation: Lesbian/Greer/Homosexual Physical Exam Verdana 4l Vital Signs: Verdana 4d Verdana 4d Vital Signs: Verdana 4d Verdana 4Bd Last Vital Signs Verdana 4d Vessel Slag Worker New 4d Vessel Slag Worker New 4d Temp 97.8 F 03/11/21 14:52 Vessel Slag Worker New 4d Pulse 74 03/11/21 14:52 Vessel Slag Worker NewNew 4d Resp 18 03/11/21 14:52 BP 121/74 03/11/21 14:52 Pulse Ox 100 03/11/21 14:52 BMI result Body Mass Index 26.5 MDM - Seizure Lab Data Result diagrams: 03/11/21 16:06 03/11/21 16:05 Labs: Lab Results 03/11/21 03/11/21 03/11/21 Range/Units 15:07 15:07 16:06 WBC 3.8 L (4.8-10.8) X10*3/uL RBC 4.86 D (4.20-5.50) X10*6/uL Hgb 15.4 D (12.0-16.0) g/dl Hct 47.2 H D (37.0-47.0) % MCV 97.1 (80.0-98.0) fL MCH 31.7 (27.0-33.0) pg MCHC 32.6 (31.0-35.0) g/dl RDW 12.4 (11.0-16.0) % Plt Count 190 D (160-400) X10*3/uL MPV 9.4 (9.4-12.3) fL Immature Gran % 0.0 (0.0-0.4) % (Auto) Neut % (Auto) 54.6 (45-73) % Lymph % (Auto) 34.8 (20-40) % [place] % (Auto) 8.8 (2-11) % Eos % (Auto) 1.3 (0-4) % Baso % (Auto) 0.5 (0-2) % Lymph # (Auto) 1.3 (1.2-4.9) X10*3/uL [place] # (Auto) 0.3 (0.1-1.2) X10*3/uL Eos # (Auto) 0.1 (0.0-0.4) X10*3/uL Baso # (Auto) 0.0 (0.0-0.2) X10*3/uL Abs Immat Gran (auto) 0.00 (0.00-0.03) X10*3/uL Absolute Neuts (auto) 2.1 (2.0-8.3) x10*3/uL Absolute Nucleated 0.000 (0.0-0.012) RBC X10*3/uL Nucleated RBC % 0.0 (0.0-0.2) /100WBC (auto) Urine Color YELLOW Urine Appearance CLEAR Urine pH 5.5 (5.0-8.0) Ur Specific Only <= 1.005 (1.005-1.025) Urine Protein NEG (NEG-TRACE) MG/DL Urine Glucose (UA) NEG (NEG) MG/DL Urine Ketones NEG (NEG) MG/DL Urine Blood NEG (NEG) Urine Nitrite NEG (NEG) Ur Leukocyte Esterase NEG (NEG) Urine RBC 0 (0) /HPF Urine WBC 0 (0-4) /HPF Ur Squamous Epith TRACE /LPF Cells Urine Bacteria TRACE /LPF Urine Opiates Screen Not Detected (Not Detect) Urine Fentanyl Screen Not Detected (Not Detect) Ur Barbiturates Not Detected (Not Detect) Screen Ur Phencyclidine Scrn Not Detected (Not Detect) Ur Amphetamines Not Detected (Not Detect) Screen U Benzodiazepines POSITIVE H (Not Detect) Scrn Urine Cocaine Screen Not Detected (Not Detect) U Marijuana (THC) Not Detected (Not Detect) Screen Discharge Plan Discharge Clinical Impression: Pseudoseizure Patient Disposition: Home, Self-Care Instructions: Recurrent Seizures in Adults (ED) Additional Instructions: follow-up with your primary care physician, return to emergency room if you worse, fever vomiting any concern Prescriptions: No Action clonidine HCl 0.1 mg Tablet 0.1 mg PO BID Qty: 60 RF: 0 Triple Antibiotic 3.5mg-400 unit- 5,000 unit/gram Ointment 1 g topical BID Qty: 1 RF: 0 clonazepam 0.5 mg Tablet 0.5 mg PO BID Qty: 60 RF: 0 hydroxyzine HCl 50 mg Tablet 50 mg PO BEDTIME Qty: 30 RF: 0 ondansetron 8 mg Tablet,Disintegrating 8 mg translingual BEDTIME Qty: 30 RF: 0 lamotrigine 25 mg Tablet 25 mg PO BEDTIME Qty: 30 RF: 0 divalproex 500 mg Tablet Extended Release 24 Hr 500 mg PO BEDTIME Qty: 3 RF: 0 hydroxyzine HCl 25 mg Tablet 25 mg PO TID PRN (Reason: anxiety) Qty: 90 RF: 0 mirtazapine 15 mg Tablet 15 mg PO BEDTIME Qty: 30 RF: 0 lorazepam 1 mg Tablet 1 mg PO Q4H PRN (Reason: Anxiety) Qty: 60 RF: 0 ondansetron 4 mg Tablet,Disintegrating 4 mg translingual DAILY PRN (Reason: Nausea) Qty: 30 RF: 0 aripiprazole [Abilify] 5 mg Tablet 5 mg PO DAILY Qty: 30 RF: 0 Abilify Maintena 300 mg suspension,extended rel recon 300 mg IM QMONTH Qty: 1 RF: 0 divalproex [Depakote ER] 250 mg tablet extended release 24 hr 250 mg PO DAILY Qty: 3 RF: 0 Referrals: Sara Harding, I[facility] [Primary Care Provider] - 2 days
[2021-03-11 16:09] LABS: MANUAL DIFF FLAG NO
[2021-03-11 16:10] LABS: Basophils Percent Auto 0.5 % (0-2); Eosinophils Absolute Auto 0.1 X10*3/uL (0.0-0.4); Eosinophils Percent Auto 1.3 % (0-4); Hematocrit 47.2 % (37.0-47.0); Hemoglobin 15.4 g/dl (12.0-16.0); Lymphocytes Absolute Auto 1.3 X10*3/uL (1.2-4.9); Lymphocytes Percent Auto 34.8 % (20-40); Mean Corpuscular HGB Conc 32.6 g/dl (31.0-35.0); Mean Corpuscular Hemoglobin 31.7 pg (27.0-33.0); Mean Corpuscular Volume 97.1 fL (80.0-98.0); Mean Platelet Volume 9.4 fL (9.4-12.3); Monocytes Absolute Auto 0.3 X10*3/uL (0.1-1.2); Monocytes Percent Auto 8.8 % (2-11); Neutrophils Absolute Auto 2.1 x10*3/uL (2.0-8.3); Neutrophils Percent Auto 54.6 % (45-73); Platelet Count 190 X10*3/uL (160-400); Red Blood Count 4.86 X10*6/uL (4.20-5.50); Red Cell Distribution Width 12.4 % (11.0-16.0); White Blood Count 3.8 X10*3/uL (4.8-10.8)
[2021-03-11 16:29] LABS: Alanine Aminotransferase 14 U/L (0-31); Albumin Level 4.4 g/dL (3.5-5.0); Alkaline Phosphatase 76 U/L (39-117); Anion Gap 14 (12-20); Aspartate Amino Transferase 25 U/L (5-31); Bilirubin Total 0.3 mg/dL (0.0-1.0); Blood Urea Nitrogen 14 mg/dL (9-16); Calcium 9.8 mg/dL (8.4-10.2); Carbon Dioxide 22 mmol/L (22-29); Chloride 106 mmol/L (96-108); Creatinine Clr Calc Pharmacy 100.7; Estimated Glomerular Filt Rate > 60; Glucose Random 82 mg/dL (60-115); Potassium 5.2 mmol/L (3.3-5.1); Sodium 137 mmol/L (135-145); Total Protein 8.8 g/dL (6.5-8.0)
[2021-03-11 16:34] LABS: HCG Quantitative < 2 mIU/mL
[2021-03-11 17:01] VITALS: BP 100/65; PULSE 73; RESP 18; TEMP 36.6; O2SAT 100
== END 2021-03-11 17:31 | disposition home or self-care (01) ==
PROVIDERS: Emergency Provider Emergency Medicine; PCP Nurse Practitioner Family
DX: R56.9 Unspecified convulsions (principal); Z79.899 Other long term (current) drug therapy; Z87.891 Personal history of nicotine dependence
CPT/HCPCS: 36415; 80053; 80307; 81001; 84702; 85025; 96360; 99283; 99284

== ENCOUNTER 2021-03-24 15:47 | Inpatient (IN) | payer OTHER, SELFPAY ==
[2021-03-24 16:00] VITALS: BP 108/69; BP 108/73; PULSE 85; RESP 18; TEMP 36.8; O2SAT 100; BMI 25.8
--- NOTE | 2021-03-24 16:23 | ED_ITS ---
HPI - General Adult General Chief complaint: General Medical <RISHI Dhaliwal - Last Filed: 03/24/21 21:47> Stated complaint: pseudo seizures <RISHI Dhaliwal - Last Filed: 03/24/21 21:47> Time Seen by Provider: 03/24/21 16:05 <RISHI Dhaliwal - Last Filed: 03/24/21 21:47> Source: patient, EMS and old records reviewed <RISHI Dhaliwal - Last Filed: 03/24/21 21:47> Mode of arrival: EMS <RISHI Dhaliwal - Last Filed: 03/24/21 21:47> Limitations: no limitations <RISHI Dhaliwal - Last Filed: 03/24/21 21:47> History of Present Illness HPI narrative: 25 y/o female with history of nonepileptic psychogenic episodes, schizophrenia, pituitary microadenoma who presents to the ER for evaluation after she had pseudoseizures at [facility] facility. She reports having more of them recently. She does not remember what happened before the event today. EMS denies any post-ictal state and patient arrives AAO x3 with no physical complaints. She cannot say the frequency of her events but reports they have been increasing. She denies being on seizure medication. She reports increased stress. <RISHI Dhaliwal - Last Filed: 03/24/21 21:47> MD complaint: pseudoseizures <RISHI Dhaliwal - Last Filed: 03/24/21 21:47> Onset (ago): unknown <RISHI Dhaliwal - Last Filed: 03/24/21 21:47> Severity: similar to prior episodes <RISHI Dhaliwal - Last Filed: 03/24/21 21:47> Pain Consistency: intermittent <RISHI Dhaliwal - Last Filed: 03/24/21 21:47> Relieving factors: none <RISHI Dhaliwal - Last Filed: 03/24/21 21:47> Exacerbating factors: none <RISHI Dhaliwal - Last Filed: 03/24/21 21:47> Associated symptoms: denies other symptoms <RISHI Dhaliwal - Last Filed: 03/24/21 21:47> Treatments prior to arrival: none <RISHI Dhaliwal - Last Filed: 03/24/21 21:47> Related Data Home medications: Home Medications Medication Instructions Recorded Confirmed aripiprazole 5 mg tablet 1 tab PO DAILY 03/24/21 03/24/21 clonazepam 0.5 mg tablet 1 tab PO BID PRN 03/24/21 03/24/21 clonidine HCl 0.1 mg tablet 1 tab PO BID 03/24/21 03/24/21 hydroxyzine HCl 50 mg tablet 1 tab PO BEDTIME 03/24/21 03/24/21 lamotrigine 25 mg tablet 2 tab PO DAILY 03/24/21 03/24/21 mirtazapine 15 mg tablet 1 tab PO BEDTIME 03/24/21 03/24/21 olanzapine 15 mg disintegrating 1 tab PO BEDTIME 03/24/21 03/24/21 tablet Previous Rx's Medication Instructions Recorded aripiprazole 300 mg intramuscular 300 mg IM QMONTH #1 ea 03/02/21 suspension,extended release (Abilifneo Maintena) <RISHI Dhaliwal - Last Filed: 03/24/21 21:47> Allergies/adverse reactions: Allergies Allergy/AdvReac Type Severity Reaction Status Date / Time metoclopramide Allergy Muscle Verified 01/08/21 20:46 [From Reglan] cramps haloperidol [From AdvReac Severe Dystonia Verified 01/08/21 20:46 Haldol] sucralfate [From AdvReac Severe vomiting Verified 01/08/21 20:46 Carafate] band-aids AdvReac Intermediate skin Uncoded 02/04/21 17:52 irritation <RISHI Dhaliwal - Last Filed: 03/24/21 21:47> Review of Systems 2 Verdana 4l Review of Systems: Verdana 4d Verdana 4d Constitutional: No Fever, No Chills ENT/Mouth: No sore throat, No Rhinorrhea, No Swallowing Difficulty Eyes: No Eye Pain, No vision changes Cardiovascular: No Chest Pain, No SOB, No Orthopnea, No Edema Respiratory: No Cough, No Sputum, No Wheezing, No dyspnea Gastrointestinal: No Nausea, No Vomiting, No Diarrhea, No abdominal Pain Genitourinary: No Dysuria, No Urinary Frequency, No Hematuria Musculoskeletal: No joint pain, No Myalgias Skin: No Skin Lesions, No rash Neuro: No Weakness, No Numbness, No Dizziness, No Headache Psych: + Anxiety/Panic, + Depression, No SI Heme/Lymph: No Bruising, No Lymphadenopathy Endocrine: No Polyuria, No Polydipsia <RISHI Dhaliwal - Last Filed: 03/24/21 21:47> [facility] Past Medical History Medical History: Medical History Anxiety Depression IBS (irritable bowel syndrome) PTSD (post-traumatic stress disorder) Schizoaffective disorder, bipolar type Schizoaffective disorder, depressive type Schizophrenia Schizophrenia Umbilical hernia <RISHI Dhaliwal - Last Filed: 03/24/21 21:47> Surgical History: Surgical History History of cholecystectomy <RISHI Dhaliwal - Last Filed: 03/24/21 21:47> Social History Social History: Social History Household Members: Family Household Members Other:: dad & brother Housing: House Do you presently have visiting nurse or other home services: No Unable to assess alcohol history related to: Unknown Patient Tobacco Use Status: Former Tobacco user Tobacco use type: Cigarette e-Cigarette/Vaping Use: Never Used Second Hand Smoke Exposure: No Substance Use Type: Marijuana Advance Directives: No Advance Directives Information Provided: No service: No Current occupational status: disabled Sexual orientation: Lesbian/Greer/Homosexual <RISHI Dhaliwal - Last Filed: 03/24/21 21:47> Physical Exam Verdana 4l Vital Signs: Verdana 4d Verdana 4d Vital Signs: Verdana 4d Verdana 4Bd Last Vital Signs Verdana 4d Photonics Engineer New 4d Photonics Engineer New 4d Temp 98.2 F 03/25/21 05:57 Photonics Engineer New 4d Pulse 84 03/25/21 05:57 Photonics Engineer New 4d Resp 16 03/25/21 05:57 BP 98/56 L 03/25/21 05:57 Pulse Ox 99 03/25/21 05:57 BMI result Body Mass Index 25.8 <RISHI Dhaliwal - Last Filed: 03/24/21 21:47> Vital Signs: Last Vital Signs Temp 98.2 F 03/25/21 05:57 Pulse 84 03/25/21 05:57 Resp 16 03/25/21 05:57 BP 98/56 L 03/25/21 05:57 Pulse Ox 99 03/25/21 05:57 BMI result Body Mass Index 25.8 <RISHI Kearns - Last Filed: 03/25/21 10:24> Appearance: Alert. Oriented X3. No acute distress. Eyes: Pupils equal, round and reactive to light. EOMI, no nystagmus ENT: Pharynx normal. Neck: Normal inspection. Neck supple. CVS: Normal heart rate and rhythm. Pulses normal. Respiratory: No respiratory distress. Breath sounds normal. Abdomen: Soft and nontender. +BS x4 Skin: Skin warm and dry. Normal skin color. Normal skin turgor. No rashes. Extremities: No lower extremity edema. Normal inspection and ROM x4. Neuro/psych: Oriented X 3. No motor deficit. No sensory deficit. CN II-XII intact. Flat affect, limited responses to some questions with poor insight. not suicidal. denies AH/VH. <RISHI Dhaliwal - Last Filed: 03/24/21 21:47> Course Course Course Narrative: 25 y/o female with history of nonepileptic seizures, schizophrenia, pituitary microadenoma with recent CT and MRIs done last December and January who presents to the ER with increase frequency of pseudoseizures. [facility] they wanted to make sure her pituitary adenoma was not contributing to her seizures. She had a extensive workup during last M5 admission. She had a normal EEG during her ?seizure episodes? with no abnormal EEG waveforms. She was not discharged on any antiepileptic medications. [facility] is involved in her care however she does not have a therapist. Patient arrives to the ER alert and oriented without any physical complaints. No headache. No vision changes. Her pseudoseizures are not related to her pituitary microadeoma and she does not have a true seizure disorder. There is no need for CT scan or MRI at this time. She is stable for discharge back to [facility]. <RISHI Dhaliwal - Last Filed: 03/24/21 21:47> Reevaluation(s) Reevaluation #1: After d/w CARE team, per [facility] respite home they are requesting crisis evaluation and [facility] will need to approve her return. This cannot be done until tomorrow. She is not suicidal at this time. Will have CARE team see her and bas ic medical workup. <RISHI Dhaliwal - Last Filed: 03/24/21 21:47> Reevaluation #2: After hearing patient was not accepted back to [facility] patient found a soda can top and superficially cut her forearm. Local wound care performed. Patient transferred to [facility] with safety checks in place. Medical workup is unremarkable. Physician observation started at 18:04. Patient placed in physician observation because patient is awaiting [facility] evaluation for the possible need of inpatient psych admission. At the time observation was started patient's vital signs were stable. Patient is alert and oriented. Neuro exam is non-focal. CV: RRR and lungs are clear. Will continue to monitor. <IRSHI Dhaliwal - Last Filed: 03/24/21 21:47> Reevaluation #3: Patient demanding 8 mg zofran prior to her home meds or else she will get violently ill. She is agitated and yelling at staff. She picked up prescriptions for both 8 mg and 4 mg zofran in the last month. EKG with normal QTc. Will give dose of 8mg zofran now per patient request. Pending CARE team evaluation. <RISHI Dhaliwal - Last Filed: 03/24/21 21:47> Additional Reevaluation(s): Physician observation continued. Patient is not in any distress. Patient awaiting care team follow-up. Patient alert oriented x3. 03/25/2021 at 10:24 <RISHI Kearns - Last Filed: 03/25/21 10:24> Consultations Consultation #1: CARE team <RISHI Dhaliwal - Last Filed: 03/24/21 21:47> Medical Decision Making Lab Data Result diagrams: : 03/24/21 16:57 03/24/21 16:57 <RISHI Dhaliwal - Last Filed: 03/24/21 21:47> Labs: Lab Results 02/03/1403/24/21 03/24/21 Range/Units 16:51 16:57 16:57 WBC 5.0 (4.8-10.8) X10*3/uL RBC 4.32 (4.20-5.50) X10*6/uL Hgb 13.6 (12.0-16.0) g/dl Hct 41.7 (37.0-47.0) % MCV 96.5 (80.0-98.0) fL MCH 31.5 (27.0-33.0) pg MCHC 32.6 (31.0-35.0) g/dl RDW 12.4 (11.0-16.0) % Plt Count 480 H D (160-400) X10*3/uL MPV 8.5 L (9.4-12.3) fL Immature Gran % (Auto) 0.0 (0.0-0.4) % Neut % (Auto) 59.6 (45-73) % Lymph % (Auto) 32.6 (20-40) % [place] % (Auto) 6.0 (2-11) % Eos % (Auto) 1.2 (0-4) % Baso % (Auto) 0.6 (0-2) % Lymph # (Auto) 1.6 (1.2-4.9) X10*3/uL [place] # (Auto) 0.3 (0.1-1.2) X10*3/uL Eos # (Auto) 0.1 (0.0-0.4) X10*3/uL Baso # (Auto) 0.0 (0.0-0.2) X10*3/uL Abs Immat Gran (auto) 0.00 (0.00-0.03) X10*3/uL Absolute Neuts (auto) 3.0 (2.0-8.3) x10*3/uL Absolute Nucleated RBC 0.000 (0.0-0.012) X10*3/uL Nucleated RBC % (auto) 0.0 (0.0-0.2) /100WBC Sodium 140 (135-145) mmol/L Potassium 4.4 (3.3-5.1) mmol/L Chloride 103 (96-108) mmol/L Carbon Dioxide 29 (22-29) mmol/L Anion Gap 12 (12-20) BUN 12 (9-16) mg/dL Creatinine 0.78 (0.5-1.4) mg/dL Estim Creat Clear Calc 112.5 Estimated GFR > 60 Random Glucose 87 (60-115) mg/dL Calcium 10.4 H D (8.4-10.2) mg/dL Magnesium 2.2 (1.6-2.6) mg/dL Total Bilirubin 0.3 (0.0-1.0) mg/dL Direct Bilirubin 0.2 (0.0-0.5) mg/dL AST 17 (5-31) U/L ALT 16 (0-31) U/L Alkaline Phosphatase 81 (39-117) U/L Total Protein 8.8 H (6.5-8.0) g/dL Albumin 4.8 (3.5-5.0) g/dL Urine Color Urine Appearance Urine pH (5.0-8.0) Ur Specific [place] (1.005-1.025) Urine Protein (NEG-TRACE) MG/DL Urine Glucose (UA) (NEG) MG/DL Urine Ketones (NEG) MG/DL Urine Blood (NEG) Urine Nitrite (NEG) Ur Leukocyte Esterase (NEG) Urine Opiates Screen (Not Detect) Urine Fentanyl Screen (Not Detect) Ur Barbiturates Screen (Not Detect) Valproic Acid (50.0-100.0) mcg/mL Ur Phencyclidine Scrn (Not Detect) Ur Amphetamines Screen (Not Detect) U Benzodiazepines Scrn (Not Detect) Urine Cocaine Screen (Not Detect) U Marijuana (THC) Screen (Not Detect) Ethyl Alcohol mg/dL COVID-19 (SHANE) Negative (Negative) COVID-19 Clin Com See Note 03/24/21 03/24/21 03/24/21 Range/Units 16:57 16:57 18:34 WBC (4.8-10.8) X10*3/uL RBC (4.20-5.50) X10*6/uL Hgb (12.0-16.0) g/dl Hct (37.0-47.0) % MCV (80.0-98.0) fL MCH (27.0-33.0) pg MCHC (31.0-35.0) g/dl RDW (11.0-16.0) % Plt Count (160-400) X10*3/uL MPV (9.4-12.3) fL Immature Gran % (Auto) (0.0-0.4) % Neut % (Auto) (45-73) % Lymph % (Auto) (20-40) % [place] % (Auto) (2-11) % Eos % (Auto) (0-4) % Baso % (Auto) (0-2) % Lymph # (Auto) (1.2-4.9) X10*3/uL [place] # (Auto) (0.1-1.2) X10*3/uL Eos # (Auto) (0.0-0.4) X10*3/uL Baso # (Auto) (0.0-0.2) X10*3/uL Abs Immat Gran (auto) (0.00-0.03) X10*3/uL Absolute Neuts (auto) (2.0-8.3) x10*3/uL Absolute Nucleated RBC (0.0-0.012) X10*3/uL Nucleated RBC % (auto) (0.0-0.2) /100WBC Sodium (135-145) mmol/L Potassium (3.3-5.1) mmol/L Chloride (96-108) mmol/L Carbon Dioxide (22-29) mmol/L Anion Gap (12-20) BUN (9-16) mg/dL Creatinine (0.5-1.4) mg/dL Estim Creat Clear Calc Estimated GFR Random Glucose (60-115) mg/dL Calcium (8.4-10.2) mg/dL Magnesium (1.6-2.6) mg/dL Total Bilirubin (0.0-1.0) mg/dL Direct Bilirubin (0.0-0.5) mg/dL AST (5-31) U/L ALT (0-31) U/L Alkaline Phosphatase (39-117) U/L Total Protein (6.5-8.0) g/dL Albumin (3.5-5.0) g/dL Urine Color YELLOW Urine Appearance CLEAR Urine pH 6.0 (5.0-8.0) Ur Specific [place] 1.020 (1.005-1.025) Urine Protein NEG (NEG-TRACE) MG/DL Urine Glucose (UA) NEG (NEG) MG/DL Urine Ketones NEG (NEG) MG/DL Urine Blood NEG (NEG) Urine Nitrite NEG (NEG) Ur Leukocyte Esterase NEG (NEG) Urine Opiates Screen (Not Detect) Urine Fentanyl Screen (Not Detect) Ur Barbiturates Screen (Not Detect) Valproic Acid < 2.0 L (50.0-100.0) mcg/mL Ur Phencyclidine Scrn (Not Detect) Ur Amphetamines Screen (Not Detect) U Benzodiazepines Scrn (Not Detect) Urine Cocaine Screen (Not Detect) U Marijuana (THC) Screen (Not Detect) Ethyl Alcohol < 10 mg/dL COVID-19 (SHANE) (Negative) COVID-19 Clin Com 03/24/21 Range/Units 18:34 WBC (4.8-10.8) X10*3/uL RBC (4.20-5.50) X10*6/uL Hgb (12.0-16.0) g/dl Hct (37.0-47.0) % MCV (80.0-98.0) fL MCH (27.0-33.0) pg MCHC (31.0-35.0) g/dl RDW (11.0-16.0) % Plt Count (160-400) X10*3/uL MPV (9.4-12.3) fL Immature Gran % (Auto) (0.0-0.4) % Neut % (Auto) (45-73) % Lymph % (Auto) (20-40) % [place] % (Auto) (2-11) % Eos % (Auto) (0-4) % Baso % (Auto) (0-2) % Lymph # (Auto) (1.2-4.9) X10*3/uL [place] # (Auto) (0.1-1.2) X10*3/uL Eos # (Auto) (0.0-0.4) X10*3/uL Baso # (Auto) (0.0-0.2) X10*3/uL Abs Immat Gran (auto) (0.00-0.03) X10*3/uL Absolute Neuts (auto) (2.0-8.3) x10*3/uL Absolute Nucleated RBC (0.0-0.012) X10*3/uL Nucleated RBC % (auto) (0.0-0.2) /100WBC Sodium (135-145) mmol/L Potassium (3.3-5.1) mmol/L Chloride (96-108) mmol/L Carbon Dioxide (22-29) mmol/L Anion Gap (12-20) BUN (9-16) mg/dL Creatinine (0.5-1.4) mg/dL Estim Creat Clear Calc Estimated GFR Random Glucose (60-115) mg/dL Calcium (8.4-10.2) mg/dL Magnesium (1.6-2.6) mg/dL Total Bilirubin (0.0-1.0) mg/dL Direct Bilirubin (0.0-0.5) mg/dL AST (5-31) U/L ALT (0-31) U/L Alkaline Phosphatase (39-117) U/L Total Protein (6.5-8.0) g/dL Albumin (3.5-5.0) g/dL Urine Color Urine Appearance Urine pH (5.0-8.0) Ur Specific [place] (1.005-1.025) Urine Protein (NEG-TRACE) MG/DL Urine Glucose (UA) (NEG) MG/DL Urine Ketones (NEG) MG/DL Urine Blood (NEG) Urine Nitrite (NEG) Ur Leukocyte Esterase (NEG) Urine Opiates Screen Not Detected (Not Detect) Urine Fentanyl Screen Not Detected (Not Detect) Ur Barbiturates Screen Not Detected (Not Detect) Valproic Acid (50.0-100.0) mcg/mL Ur Phencyclidine Scrn Not Detected (Not Detect) Ur Amphetamines Screen Not Detected (Not Detect) U Benzodiazepines Scrn Not Detected (Not Detect) Urine Cocaine Screen Not Detected (Not Detect) U Marijuana (THC) Screen Not Detected (Not Detect) Ethyl Alcohol mg/dL COVID-19 (SHANE) (Negative) COVID-19 Clin Com <RISHI Dhaliwal - Last Filed: 03/24/21 21:47> Lab Results 03/24/21 03/24/21 03/24/21 Range/Units 16:51 16:57 16:57 WBC 5.0 (4.8-10.8) X10*3/uL RBC 4.32 (4.20-5.50) X10*6/uL Hgb 13.6 (12.0-16.0) g/dl Hct 41.7 (37.0-47.0) % MCV 96.5 (80.0-98.0) fL MCH 31.5 (27.0-33.0) pg MCHC 32.6 (31.0-35.0) g/dl RDW 12.4 (11.0-16.0) % Plt Count 480 H D (160-400) X10*3/uL MPV 8.5 L (9.4-12.3) fL Immature Gran % (Auto) 0.0 (0.0-0.4) % Neut % (Auto) 59.6 (45-73) % Lymph % (Auto) 32.6 (20-40) % [place] % (Auto) 6.0 (2-11) % Eos % (Auto) 1.2 (0-4) % Baso % (Auto) 0.6 (0-2) % Lymph # (Auto) 1.6 (1.2-4.9) X10*3/uL [place] # (Auto) 0.3 (0.1-1.2) X10*3/uL Eos # (Auto) 0.1 (0.0-0.4) X10*3/uL Baso # (Auto) 0.0 (0.0-0.2) X10*3/uL Abs Immat Gran (auto) 0.00 (0.00-0.03) X10*3/uL Absolute Neuts (auto) 3.0 (2.0-8.3) x10*3/uL Absolute Nucleated RBC 0.000 (0.0-0.012) X10*3/uL Nucleated RBC % (auto) 0.0 (0.0-0.2) /100WBC Sodium 140 (135-145) mmol/L Potassium 4.4 (3.3-5.1) mmol/L Chloride 103 (96-108) mmol/L Carbon Dioxide 29 (22-29) mmol/L Anion Gap 12 (12-20) BUN 12 (9-16) mg/dL Creatinine 0.78 (0.5-1.4) mg/dL Estim Creat Clear Calc 112.5 Estimated GFR > 60 Random Glucose 87 (60-115) mg/dL Calcium 10.4 H D (8.4-10.2) mg/dL Magnesium 2.2 (1.6-2.6) mg/dL Total Bilirubin 0.3 (0.0-1.0) mg/dL Direct Bilirubin 0.2 (0.0-0.5) mg/dL AST 17 (5-31) U/L ALT 16 (0-31) U/L Alkaline Phosphatase 81 (39-117) U/L Total Protein 8.8 H (6.5-8.0) g/dL Albumin 4.8 (3.5-5.0) g/dL Urine Color Urine Appearance Urine pH (5.0-8.0) Ur Specific [place] (1.005-1.025) Urine Protein (NEG-TRACE) MG/DL Urine Glucose (UA) (NEG) MG/DL Urine Ketones (NEG) MG/DL Urine Blood (NEG) Urine Nitrite (NEG) Ur Leukocyte Esterase (NEG) Urine Opiates Screen (Not Detect) Urine Fentanyl Screen (Not Detect) Ur Barbiturates Screen (Not Detect) Valproic Acid (50.0-100.0) mcg/mL Ur Phencyclidine Scrn (Not Detect) Ur Amphetamines Screen (Not Detect) U Benzodiazepines Scrn (Not Detect) Urine Cocaine Screen (Not Detect) U Marijuana (THC) Screen (Not Detect) Ethyl Alcohol mg/dL COVID-19 ([facility]ANE) Negative (Negative) COVID-19 Clin Com See Note 03/24/21 03/24/21 03/24/21 Range/Units 16:57 16:57 18:34 WBC (4.8-10.8) X10*3/uL RBC (4.20-5.50) X10*6/uL Hgb (12.0-16.0) g/dl Hct (37.0-47.0) % MCV (80.0-98.0) fL MCH (27.0-33.0) pg MCHC (31.0-35.0) g/dl RDW (11.0-16.0) % Plt Count (160-400) X10*3/uL MPV (9.4-12.3) fL Immature Gran % (Auto) (0.0-0.4) % Neut % (Auto) (45-73) % Lymph % (Auto) (20-40) % [place] % (Auto) (2-11) % Eos % (Auto) (0-4) % Baso % (Auto) (0-2) % Lymph # (Auto) (1.2-4.9) X10*3/uL [place] # (Auto) (0.1-1.2) X10*3/uL Eos # (Auto) (0.0-0.4) X10*3/uL Baso # (Auto) (0.0-0.2) X10*3/uL Abs Immat Gran (auto) (0.00-0.03) X10*3/uL Absolute Neuts (auto) (2.0-8.3) x10*3/uL Absolute Nucleated RBC (0.0-0.012) X10*3/uL Nucleated RBC % (auto) (0.0-0.2) /100WBC Sodium (135-145) mmol/L Potassium (3.3-5.1) mmol/L Chloride (96-108) mmol/L Carbon Dioxide (22-29) mmol/L Anion Gap (12-20) BUN (9-16) mg/dL Creatinine (0.5-1.4) mg/dL Estim Creat Clear Calc Estimated GFR Random Glucose (60-115) mg/dL Calcium (8.4-10.2) mg/dL Magnesium (1.6-2.6) mg/dL Total Bilirubin (0.0-1.0) mg/dL Direct Bilirubin (0.0-0.5) mg/dL AST (5-31) U/L ALT (0-31) U/L Alkaline Phosphatase (39-117) U/L Total Protein (6.5-8.0) g/dL Albumin (3.5-5.0) g/dL Urine Color YELLOW Urine Appearance CLEAR Urine pH 6.0 (5.0-8.0) Ur Specific [place] 1.020 (1.005-1.025) Urine Protein NEG (NEG-TRACE) MG/DL Urine Glucose (UA) NEG (NEG) MG/DL Urine Ketones NEG (NEG) MG/DL Urine Blood NEG (NEG) Urine Nitrite NEG (NEG) Ur Leukocyte Esterase NEG (NEG) Urine Opiates Screen (Not Detect) Urine Fentanyl Screen (Not Detect) Ur Barbiturates Screen (Not Detect) Valproic Acid < 2.0 L (50.0-100.0) mcg/mL Ur Phencyclidine Scrn (Not Detect) Ur Amphetamines Screen (Not Detect) U Benzodiazepines Scrn (Not Detect) Urine Cocaine Screen (Not Detect) U Marijuana (THC) Screen (Not Detect) Ethyl Alcohol < 10 mg/dL COVID-19 ([facility]ANE) (Negative) COVID-19 Clin Com 03/24/21 Range/Units 18:34 WBC (4.8-10.8) X10*3/uL RBC (4.20-5.50) X10*6/uL Hgb (12.0-16.0) g/dl Hct (37.0-47.0) % MCV (80.0-98.0) fL MCH (27.0-33.0) pg MCHC (31.0-35.0) g/dl RDW (11.0-16.0) % Plt Count (160-400) X10*3/uL MPV (9.4-12.3) fL Immature Gran % (Auto) (0.0-0.4) % Neut % (Auto) (45-73) % Lymph % (Auto) (20-40) % [place] % (Auto) (2-11) % Eos % (Auto) (0-4) % Baso % (Auto) (0-2) % Lymph # (Auto) (1.2-4.9) X10*3/uL [place] # (Auto) (0.1-1.2) X10*3/uL Eos # (Auto) (0.0-0.4) X10*3/uL Baso # (Auto) (0.0-0.2) X10*3/uL Abs Immat Gran (auto) (0.00-0.03) X10*3/uL Absolute Neuts (auto) (2.0-8.3) x10*3/uL Absolute Nucleated RBC (0.0-0.012) X10*3/uL Nucleated RBC % (auto) (0.0-0.2) /100WBC Sodium (135-145) mmol/L Potassium (3.3-5.1) mmol/L Chloride (96-108) mmol/L Carbon Dioxide (22-29) mmol/L Anion Gap (12-20) BUN (9-16) mg/dL Creatinine (0.5-1.4) mg/dL Estim Creat Clear Calc Estimated GFR Random Glucose (60-115) mg/dL Calcium (8.4-10.2) mg/dL Magnesium (1.6-2.6) mg/dL Total Bilirubin (0.0-1.0) mg/dL Direct Bilirubin (0.0-0.5) mg/dL AST (5-31) U/L ALT (0-31) U/L Alkaline Phosphatase (39-117) U/L Total Protein (6.5-8.0) g/dL Albumin (3.5-5.0) g/dL Urine Color Urine Appearance Urine pH (5.0-8.0) Ur Specific [place] (1.005-1.025) Urine Protein (NEG-TRACE) MG/DL Urine Glucose (UA) (NEG) MG/DL Urine Ketones (NEG) MG/DL Urine Blood (NEG) Urine Nitrite (NEG) Ur Leukocyte Esterase (NEG) Urine Opiates Screen Not Detected (Not Detect) Urine Fentanyl Screen Not Detected (Not Detect) Ur Barbiturates Screen Not Detected (Not Detect) Valproic Acid (50.0-100.0) mcg/mL Ur Phencyclidine Scrn Not Detected (Not Detect) Ur Amphetamines Screen Not Detected (Not Detect) U Benzodiazepines Scrn Not Detected (Not Detect) Urine Cocaine Screen Not Detected (Not Detect) U Marijuana (THC) Screen Not Detected (Not Detect) Ethyl Alcohol mg/dL COVID-19 ([facility]) (Negative) COVID-19 Clin Com <RISHI Kearns - Last Filed: 03/25/21 10:24> ECG Data Attestation: I personally reviewed and interpreted this ECG as follows: <RISHI Dhaliwal - Last Filed: 03/24/21 21:47> Interpretation: Normal EKG, HR 85, normal sinus rhythm, normal QTC, normal WI interval, no ST segment elevations or depressions. <RISHI Dhaliwal - Last Filed: 03/24/21 21:47> Discharge Plan Discharge Clinical Impression: Psychogenic nonepileptic seizure, Schizoaffective disorder, bipolar type <RISHI Dhaliwal - Last Filed: 03/24/21 21:47> Patient Disposition: Still a Patient <RISHI Dhaliwal - Last Filed: 03/24/21 21:47> Instructions: Nonepileptic Seizures (DC) <RISHI Dhaliwal - Last Filed: 03/24/21 21:47> Additional Instructions: Your history of nonepileptic seizures does not have correlation with your pituitary microadenoma. Recommend following up with your Psychiatrist and regular doctor. Stress can play a major role in nonepileptic seizure or pseudoseizures. Recommend following up with a therapist JULI. If you develop new or worsening symptoms call 911 or come back to the ER for further evaluation. <RISHI Dhaliwal - Last Filed: 03/24/21 21:47> Prescriptions: No Action Abilify Maintena 300 mg suspension,extended rel recon 300 mg IM QMONTH Qty: 1 0RF Rx Instructions: Injection Due on 03/10/21. clonidine HCl 0.1 mg tablet 1 tab PO BID 0RF clonazepam 0.5 mg tablet 1 tab PO BID PRN (Reason: Anxiety) 0RF aripiprazole 5 mg tablet 1 tab PO DAILY 0RF hydroxyzine HCl 50 mg tablet 1 tab PO BEDTIME 0RF lamotrigine 25 mg tablet 2 tab PO DAILY 0RF mirtazapine 15 mg tablet 1 tab PO BEDTIME 0RF olanzapine 15 mg tablet,disintegrating 1 tab PO BEDTIME 0RF <RISHI Dhaliwal - Last Filed: 03/24/21 21:47>
[2021-03-24 17:01] LABS: MANUAL DIFF FLAG NO
[2021-03-24 17:03] LABS: Basophils Percent Auto 0.6 % (0-2); Eosinophils Absolute Auto 0.1 X10*3/uL (0.0-0.4); Eosinophils Percent Auto 1.2 % (0-4); Hematocrit 41.7 % (37.0-47.0); Hemoglobin 13.6 g/dl (12.0-16.0); Lymphocytes Absolute Auto 1.6 X10*3/uL (1.2-4.9); Lymphocytes Percent Auto 32.6 % (20-40); Mean Corpuscular HGB Conc 32.6 g/dl (31.0-35.0); Mean Corpuscular Hemoglobin 31.5 pg (27.0-33.0); Mean Corpuscular Volume 96.5 fL (80.0-98.0); Mean Platelet Volume 8.5 fL (9.4-12.3); Monocytes Absolute Auto 0.3 X10*3/uL (0.1-1.2); Neutrophils Percent Auto 59.6 % (45-73); Platelet Count 480 X10*3/uL (160-400); Red Blood Count 4.32 X10*6/uL (4.20-5.50); Red Cell Distribution Width 12.4 % (11.0-16.0)
[2021-03-24 17:22] LABS: COVID-19 Test Negative (Negative)
[2021-03-24 17:26] LABS: Ethanol < 10 mg/dL
[2021-03-24 17:28] LABS: Alanine Aminotransferase 16 U/L (0-31); Albumin Level 4.8 g/dL (3.5-5.0); Alkaline Phosphatase 81 U/L (39-117); Anion Gap 12 (12-20); Aspartate Amino Transferase 17 U/L (5-31); Bilirubin Direct 0.2 mg/dL (0.0-0.5); Bilirubin Total 0.3 mg/dL (0.0-1.0); Blood Urea Nitrogen 12 mg/dL (9-16); Carbon Dioxide 29 mmol/L (22-29); Chloride 103 mmol/L (96-108); Creatinine Clr Calc Pharmacy 112.5; Estimated Glomerular Filt Rate > 60; Glucose Random 87 mg/dL (60-115); Magnesium 2.2 mg/dL (1.6-2.6); Potassium 4.4 mmol/L (3.3-5.1); Sodium 140 mmol/L (135-145); Total Protein 8.8 g/dL (6.5-8.0)
[2021-03-24 17:34] LABS: Calcium 10.4 mg/dL (8.4-10.2)
--- NOTE | 2021-03-24 18:07 | PC.NURSE ---
Patient alert and oriented x 3. social work faculty member came and said she had cut herself with soda can top cleaned and applied bacitracin and wrapped (multiple small cuts). Patient doesn't want to stay in ER. Patient denies any physical pain. Will continue to monitor.
[2021-03-24 18:45] LABS: Appearance Urine CLEAR; Color Urine YELLOW; Glucose Urine UA NEG (NEG); Leukocyte Esterase Urine NEG (NEG); Nitrite Urine NEG (NEG); Urine Blood NEG (NEG); Urine Ketones NEG (NEG); Urine Protein NEG (NEG-TRACE)
[2021-03-24 18:55] LABS: Amphetamine Screen Urine Not Detected (Not Detect); Barbiturates, Urine Not Detected (Not Detect); Benzodiazepines Screen Urine Not Detected (Not Detect); Cannabinoid Screen Urine Not Detected (Not Detect); Cocaine Screen Urine Not Detected (Not Detect); Fentanyl, urine Not Detected (Not Detect); Opiate Screen Urine Not Detected (Not Detect); Phencyclidine Screen Urine Not Detected (Not Detect)
[2021-03-24 19:37] LABS: Valproate < 2.0 mcg/mL (50.0-100.0)
--- NOTE | 2021-03-24 19:44 | MHC.CARE ---
CARE team evaluated pt who arrived to ED via ambulance from [facility] respite bed ([facility]) after experiencing a pseudoseizure at the program. Mag Santiago, rehabilitation supervisor at the respite program, reported that the pt is unable to return to the facility for medical reasons and stated that [facility] is advocating for another psychiatric admission. While in the ED and awaiting assessment, she inflicted superficial cuts to her left forearm with the cap of a soda can, sharing that she has been feeling overwhelmed and stressed, and that no one wants to help her. Pt was changed over and moved to the pod. Plan at this time is for tentative psychiatric admission, which will be discussed among the inpatient psychiatry clinical and social work teams in the morning.
[2021-03-24 20:07] VITALS: BP 119/69; PULSE 97; TEMP 37.1; O2SAT 99
[2021-03-24] MEDS: cloNIDine HCL 0.1 MG TABLET PO (20:50)
[2021-03-24] MEDS: clonazePAM 0.5 MG TABLET PO (20:50)
[2021-03-24] MEDS: hydrOXYzine HCL 50 MG TABLET PO (20:50)
[2021-03-24] MEDS: Mirtazapine 15 MG TABLET PO (20:50)
[2021-03-24] MEDS: Ondansetron ODT 4 MG TAB.RAPDIS TRANSLINGU ×2 (21:06→21:49)
--- NOTE | 2021-03-24 21:23 | ECG_ITS ---
Test Reason : med clearance Blood Pressure : / mmHG Vent. Rate : 086 BPM Atrial Rate : 086 BPM P-R Int : 158 ms QRS Dur : 074 ms QT Int : 364 ms P-R-T Axes : 051 049 033 degrees QTc Int : 435 ms Normal sinus rhythm Normal ECG When compared with ECG of 08-JAN-2021 23:20, No significant change was found Referred By: Anastasiya Arora Electronically Signed By:MARS KEVIN
--- NOTE | 2021-03-25 05:25 | PC.NURSE ---
Patient slept through the night, no distress observed/reported, patient was very particular about her medication, refused her Olanzapine, received Zofran 8 mg after EKG, patient was assessed by care team, no disposition updated, Re-Eval by care team, VSS, behavior non-concerning at this time, VSS, will continue to monitor.
[2021-03-25 05:57] VITALS: BP 98/56; PULSE 84; RESP 16; TEMP 36.8; O2SAT 99
--- NOTE | 2021-03-25 06:57 | PC.NURSE ---
patient appears to remain asleep at present respirations are even and unlabored patient appears in no distress
[2021-03-25] MEDS: cloNIDine HCL 0.1 MG TABLET PO ×2 (11:29→20:58)
[2021-03-25] MEDS: lamoTRIgine 25 MG TABLET 50 MG PO (11:29)
[2021-03-25] MEDS: ARIPiprazole 5 MG TABLET PO (11:30)
[2021-03-25 12:05] VITALS: BP 111/70; PULSE 89; TEMP 36; O2SAT 100
[2021-03-25 15:29] VITALS: BP 112/70; PULSE 87; TEMP 37; O2SAT 99
[2021-03-25 19:20] VITALS: BP 122/79; PULSE 120; RESP 18; TEMP 36.4; O2SAT 100
[2021-03-25] MEDS: hydrOXYzine HCL 50 MG TABLET PO (20:58)
[2021-03-25] MEDS: clonazePAM 0.5 MG TABLET PO (20:58)
[2021-03-25] MEDS: Mirtazapine 15 MG TABLET PO (20:58)
[2021-03-25 21:05] VITALS: BP 130/72; PULSE 107
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
[2021-03-26] MEDS: LORazepam 1 MG TABLET PO ×2 (00:32→23:20)
[2021-03-26 08:30] VITALS: BP 112/73; PULSE 87; TEMP 36.9
[2021-03-26] MEDS: ARIPiprazole 5 MG TABLET PO (09:23)
[2021-03-26] MEDS: lamoTRIgine 25 MG TABLET 50 MG PO (09:23)
[2021-03-26] MEDS: cloNIDine HCL 0.1 MG TABLET PO ×2 (09:23→20:36)
[2021-03-26] MEDS: Ondansetron ODT 4 MG TAB.RAPDIS TRANSLINGU (13:40)
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
[2021-03-26] MEDS: Magnesium Hydrox/Alum Hydrox 30 ML ORAL.SUSP PO (20:26)
[2021-03-26 20:29] VITALS: BP 125/67; PULSE 107; RESP 16; TEMP 37.4; O2SAT 97
[2021-03-26] MEDS: Ondansetron ODT 8 MG TAB.RAPDIS TRANSLINGU (20:35)
[2021-03-26] MEDS: Mirtazapine 15 MG TABLET PO (20:36)
[2021-03-26] MEDS: traZODone HCL 50 MG TABLET PO (20:36)
[2021-03-26] MEDS: hydrOXYzine HCL 50 MG TABLET PO (20:36)
[2021-03-26] MEDS: clonazePAM 0.5 MG TABLET PO (20:37)
[2021-03-27 08:45] VITALS: BP 103/62; PULSE 87; TEMP 36.8
[2021-03-27] MEDS: ARIPiprazole 10 MG TABLET PO (09:16)
[2021-03-27] MEDS: lamoTRIgine 25 MG TABLET 50 MG PO (09:16)
[2021-03-27] MEDS: cloNIDine HCL 0.1 MG TABLET PO ×2 (09:17→20:35)
[2021-03-27] MEDS: clonazePAM 0.5 MG TABLET PO ×2 (09:17→20:35)
--- NOTE | 2021-03-27 16:20 | HO.PSYCHPN ---
Subjective Subjective Date of Service: 03/27/21 Reason For Visit: conversion disorder Interim History: Patient seen and discussed with team. Patient evaluated this morning and upon interview pt is found in her bed, playing her [place] switch. She reports she has not had a pseudoseizure since admission. Utilizing PRN medications. Says respite was triggering due to peers being verbally aggressive. She had incident of vomiting but reports benefit on zophran for nausea. Discussed her provider, Joann Sosa scheduling a f/u for her for her pituitary adenoma. In the milieu, patient is safe but isolative in behavior. Denies SI/SIB/HI upon inquiry. Denies irritability or assaultive ideation. Says she feels safe. Medication Compliance: Yes Side effects from medications: No Attending Groups: Yes Review of Systems Acute medical concerns: No Medical Review of Systems: unchanged Mental Status Exam Mental Status Exam Narrative: Patient Appearance:?Appropriate Patient Orientation:?Person, Place, Time and Situation Level of Consciousness:?Alert Patient Behavior:?Appropriate, Talkative, Cooperative and Good Eye Contact Mood Description:?Depressed and Flat Affect Description:?Flat Patient Cognition Impaired:?No Ability to Follow Directions:?Good Speech Pattern:?Spontaneous Speech Memory Description:?Intact Hallucinations:?None Delusions:?Not Present Perceptual Disturbances:?Depersonalization and Derealization Thought Process:?Intact and Rumination Thought Content:?positive for Circumstantial and positive for Suicidal Ideation (denies) Depressive Symptoms:?Increased Anxiety, Insomnia and Difficulty Sleeping Judgment:?Good Diagnostics Vital Signs (24Hr): Vital Signs - 24 hr 03/26/21 20:29 03/27/21 08:45 Temperature 99.3 F 98.3 F Pulse Rate 107 H 87 Respiratory Rate 16 Blood Pressure 125/67 103/62 Pulse Oximetry 97 BMI result Body Mass Index 25.8 Labs Results: 03/24/21 16:57 03/24/21 16:57 Medications Medications Current Medications Al Hydroxide/Mg Hydroxide (Magnesium Hydrox/Alum Hydrox 30 Ml Oral.Susp) 30 ml PO Q6H PRN PRN Reason: Heartburn/Nausea Last Admin: 03/26/21 20:26 Dose: 30 ml Documented by: Aripiprazole (Aripiprazole 10 Mg Tablet) 10 mg PO DAILY [facility] Last Admin: 03/27/21 09:16 Dose: 10 mg Documented by: Clonazepam (Clonazepam 0.5 Mg Tablet) 0.5 mg PO BID [facility] Last Admin: 03/27/21 09:17 Dose: 0.5 mg Documented by: Clonidine HCl (Clonidine Hcl 0.1 Mg Tablet) 0.1 mg PO BID [facility]; Protocol Last Admin: 03/27/21 09:17 Dose: 0.1 mg Documented by: Hydroxyzine HCl (Hydroxyzine Hcl 50 Mg Tablet) 50 mg PO BEDTIME [facility] Last Admin: 03/26/21 20:36 Dose: 50 mg Documented by: Hydroxyzine HCl (Hydroxyzine Hcl 25 Mg Tablet) 25 mg PO BEDTIME PRN PRN Reason: Anxiety Lamotrigine (Lamotrigine 25 Mg Tablet) 50 mg PO DAILY [facility] Last Admin: 03/27/21 09:16 Dose: 50 mg Documented by: Lorazepam (Lorazepam 1 Mg Tablet) 1 mg PO Q4H PRN PRN Reason: agitation Last Admin: 03/26/21 23:20 Dose: 1 mg Documented by: Magnesium Hydroxide (Milk Of Magnesia 30 Ml Oral.Susp) 30 ml PO DAILY PRN PRN Reason: Constipation Mirtazapine (Mirtazapine 15 Mg Tablet) 15 mg PO BEDTIME [facility] Last Admin: 03/26/21 20:36 Dose: 15 mg Documented by: Ondansetron HCl (Ondansetron Odt 8 Mg Tab.Rapdis) 8 mg TRANSLINGU BEDTIME [facility] Last Admin: 03/26/21 20:35 Dose: 8 mg Documented by: Ondansetron HCl (Ondansetron Odt 4 Mg Tab.Rapdis) 4 mg TRANSLINGU DAILY PRN PRN Reason: Nausea Last Admin: 03/26/21 13:40 Dose: 4 mg Documented by: Trazodone HCl (Trazodone Hcl 50 Mg Tablet) 50 mg PO BEDTIME PRN PRN Reason: Insomnia Last Admin: 03/26/21 20:36 Dose: 50 mg Documented by: Allergies Allergies Allergy/AdvReac Type Severity Reaction Status Date / Time metoclopramide [From Reglan] Allergy Muscle Verified 01/08/21 20:46 cramps haloperidol [From Haldol] AdvReac Severe Dystonia Verified 01/08/21 20:46 sucralfate [From Carafate] AdvReac Severe vomiting Verified 01/08/21 20:46 band-aids AdvReac Intermediate skin Uncoded 02/04/21 17:52 irritation Assessment & Plan Assessment & Plan (1) PTSD (post-traumatic stress disorder): Status: Acute Code(s): F43.10 - Post-traumatic stress disorder, unspecified (2) Schizoaffective disorder, bipolar type: Status: Acute Code(s): F25.0 - Schizoaffective disorder, bipolar type (3) IBS (irritable bowel syndrome): Status: Acute Code(s): K58.9 - Irritable bowel syndrome without diarrhea Plan 25 yo female, history of PTSD, Schizoaffective Disorder, presents from respite with increasing pseudoseizure activity s/p COVID, needing to quarantine and not having many opportunities to process feelings due to quarantine. Pt discharged from respite as team noted increase in pseudoseizure activity and is wanting this symptom addressed. Discussed with pt and she agrees that the best way to address the symptom is ongoing psychotherapy, skill building with DBT focus, and participating in activites which increase her self-esteem and individuation. Pt is scheduled for a provider meeting next week so team may review housing options with her as [facility] Med regime reviewed and adjustments agreed to. Plan: Review of diagnostics Increase Abilify to 10 mg daily. Will increase maintena when due @ 04/10. Ensure with meals TID to assist with GI sx mgt. Transition to [facility] senior living hopefully in a brief time 03/27: no med changes, has flu with endo scheduled by primary provider for pituitary adenoma, utilizing zophran for nausea I spent minutes with the patient and/or on the patient floor today, greater than?50% of which was spent counseling/coordinating care. Reason for contiued inpatient stay Substantial Risk for: rapid decompensation and med/psych decompensation
[2021-03-27] MEDS: Mirtazapine 15 MG TABLET PO (20:35)
[2021-03-27] MEDS: hydrOXYzine HCL 50 MG TABLET PO (20:35)
[2021-03-27] MEDS: Ondansetron ODT 8 MG TAB.RAPDIS TRANSLINGU (20:35)
[2021-03-27] MEDS: traZODone HCL 50 MG TABLET PO (20:36)
[2021-03-27 20:43] VITALS: BP 103/66; PULSE 80; RESP 16; TEMP 36.4; O2SAT 96
[2021-03-28] MEDS: cloNIDine HCL 0.1 MG TABLET PO ×2 (08:05→20:59)
[2021-03-28] MEDS: lamoTRIgine 25 MG TABLET 50 MG PO (08:05)
[2021-03-28] MEDS: clonazePAM 0.5 MG TABLET PO ×2 (08:06→20:59)
[2021-03-28] MEDS: Ondansetron ODT 4 MG TAB.RAPDIS TRANSLINGU (08:06)
[2021-03-28] MEDS: ARIPiprazole 10 MG TABLET PO (08:06)
[2021-03-28 08:32] VITALS: BP 112/82; PULSE 102; RESP 14; TEMP 37.1; O2SAT 100
--- NOTE | 2021-03-28 11:54 | P.PNPSI_ITS ---
Subjective Subjective Date of Service: 03/28/21 Reason For Visit: conversion disorder Interim History: Patient seen and discussed with team. Patient evaluated this morning and upon interview pt reports she had Covid while at respite but denies residual sx. Says she had to move to a group room to sleep last night due to her roommate snoring. Trazodone helped with sleep onset but says she kept waking up. Did not attend groups today. In the milieu, patient is safe but withdrawn in behavior. Denies SI/SIB/HI upon inquiry. Denies irritability or assaultive ideation. Says she feels safe. Medication Compliance: Yes Side effects from medications: No Attending Groups: No Review of Systems Acute medical concerns: No Medical Review of Systems: unchanged Mental Status Exam Mental Status Exam Narrative: Patient Appearance:?Appropriate Patient Orientation:?Person, Place, Time and Situation Level of Consciousness:?Alert Patient Behavior:?Appropriate, Talkative, Cooperative and Good Eye Contact Mood Description:?Depressed and Flat Affect Description:?Flat Patient Cognition Impaired:?No Ability to Follow Directions:?Good Speech Pattern:?Spontaneous Speech Memory Description:?Intact Hallucinations:?None Delusions:?Not Present Perceptual Disturbances:?Depersonalization and Derealization Thought Process:?Intact and Rumination Thought Content:?positive for Circumstantial and positive for Suicidal Ideation (denies) Depressive Symptoms:?Increased Anxiety, Insomnia and Difficulty Sleeping Judgment:?Good Diagnostics Vital Signs (24Hr): Vital Signs - 24 hr 03/29/21 17:16 03/29/21 20:24 03/30/21 06:00 Temperature 98.8 F 97.6 F Pulse Rate 107 H 86 95 Respiratory Rate 18 14 Blood Pressure 110/75 119/84 110/61 Pulse Oximetry 97 95 BMI result Verdana 4 Body Mass Index Verdana 4 25.8 Verdana 4 Verdana 4 Labs Results: 03/24/21 16:57 03/24/21 16:57 Labs: Laboratory Results - last 48 hr 03/30/21 03/30/21 03/30/21 08:26 08:26 08:26 Estimat Average Glucose 97 Hemoglobin A1c % 5.0 Triglycerides 54 Cholesterol 176 D LDL Cholesterol, Calc 90 HDL Cholesterol 76 D Vitamin B12 620 Folate 17.2 TSH 2.60 Medications Medications Current Medications Al Hydroxide/Mg Hydroxide (Magnesium Hydrox/Alum Hydrox 30 Ml Oral.Susp) 30 ml PO Q6H PRN PRN Reason: Heartburn/Nausea Last Admin: 03/26/21 20:26 Dose: 30 ml Documented by: Aripiprazole (Aripiprazole 10 Mg Tablet) 10 mg PO DAILY [facility] Last Admin: 03/30/21 08:55 Dose: 10 mg Documented by: Clonazepam (Clonazepam 0.5 Mg Tablet) 0.5 mg PO BID [facility] Last Admin: 03/30/21 08:28 Dose: 0.5 mg Documented by: Clonidine HCl (Clonidine Hcl 0.1 Mg Tablet) 0.1 mg PO BID [facility]; Protocol Last Admin: 03/30/21 08:54 Dose: 0.1 mg Documented by: Hydroxyzine HCl (Hydroxyzine Hcl 50 Mg Tablet) 50 mg PO BEDTIME [facility] Last Admin: 03/29/21 20:12 Dose: 50 mg Documented by: Hydroxyzine HCl (Hydroxyzine Hcl 25 Mg Tablet) 25 mg PO Q6H PRN PRN Reason: Anxiety Last Admin: 03/29/21 14:35 Dose: 25 mg Documented by: Lamotrigine (Lamotrigine 25 Mg Tablet) 50 mg PO DAILY [facility] Last Admin: 03/30/21 08:54 Dose: 50 mg Documented by: Lorazepam (Lorazepam 1 Mg Tablet) 1 mg PO Q4H PRN PRN Reason: agitation Last Admin: 03/29/21 21:52 Dose: 1 mg Documented by: Magnesium Hydroxide (Milk Of Magnesia 30 Ml Oral.Susp) 30 ml PO DAILY PRN PRN Reason: Constipation Mirtazapine (Mirtazapine 15 Mg Tablet) 15 mg PO BEDTIME [facility] Last Admin: 03/29/21 20:12 Dose: 15 mg Documented by: Ondansetron HCl (Ondansetron Odt 8 Mg Tab.Rapdis) 8 mg TRANSLINGU BEDTIME [facility] Last Admin: 03/29/21 20:09 Dose: 8 mg Documented by: Ondansetron HCl (Ondansetron Odt 4 Mg Tab.Rapdis) 4 mg TRANSLINGU DAILY PRN PRN Reason: Nausea Last Admin: 03/30/21 08:28 Dose: 4 mg Documented by: Trazodone HCl (Trazodone Hcl 50 Mg Tablet) 50 mg PO BEDTIME [facility] Last Admin: 03/29/21 20:13 Dose: 50 mg Documented by: Allergies Allergies Allergy/AdvReac Type Severity Reaction Status Date / Time metoclopramide Allergy Muscle Verified 01/08/21 20:46 [From Reglan] cramps haloperidol [From AdvReac Severe Dystonia Verified 01/08/21 20:46 Haldol] sucralfate [From AdvReac Severe vomiting Verified 01/08/21 20:46 Carafate] band-aids AdvReac Intermediate skin Uncoded 02/04/21 17:52 irritation Assessment & Plan Assessment & Plan (1) PTSD (post-traumatic stress disorder): Status: Acute Code(s): F43.10 - Post-traumatic stress disorder, unspecified (2) Schizoaffective disorder, bipolar type: Status: Acute Code(s): F25.0 - Schizoaffective disorder, bipolar type (3) IBS (irritable bowel syndrome): Status: Acute Code(s): K58.9 - Irritable bowel syndrome without diarrhea Plan 25 yo female, history of PTSD, Schizoaffective Disorder, presents from respite with increasing pseudoseizure activity s/p COVID, needing to quarantine and not having many opportunities to process feelings due to quarantine. Pt discharged from respite as team noted increase in pseudoseizure activity and is wanting this symptom addressed. Discussed with pt and she agrees that the best way to address the symptom is ongoing psychotherapy, skill building with DBT focus, and participating in activites which increase her self-esteem and individuation. Pt is scheduled for a provider meeting next week so team may review housing options with her as [facility] Med regime reviewed and adjustments agreed to. Plan: Review of diagnostics Increase Abilify to 10 mg daily. Will increase maintena when due @ 04/10. Ensure with meals TID to assist with GI sx mgt. Transition to [facility] senior care hopefully in a brief time 03/27: no med changes, has flu with endo scheduled by primary provider for pituitary adenoma, utilizing zophran for nausea 03/28: increase vistaril to 25 mg Q6H PRN for anxiety, schedule trazodone 50 mg QHS for sleep due to reported benefit. No pseudo seizure today. Pt eating okay, no vomiting. I spent minutes with the patient and/or on the patient floor today, greater than?50% of which was spent counseling/coordinating care. Reason for contiued inpatient stay Substantial Risk for: rapid decompensation and med/psych decompensation
[2021-03-28] MEDS: LORazepam 1 MG TABLET PO ×2 (13:47→18:26)
[2021-03-28 17:00] VITALS: BP 114/82; PULSE 84; RESP 16; TEMP 36.8; O2SAT 99
[2021-03-28] MEDS: Ondansetron ODT 8 MG TAB.RAPDIS TRANSLINGU (20:57)
[2021-03-28] MEDS: traZODone HCL 50 MG TABLET PO (20:59)
[2021-03-28] MEDS: hydrOXYzine HCL 50 MG TABLET PO (20:59)
[2021-03-28] MEDS: Mirtazapine 15 MG TABLET PO (20:59)
[2021-03-28 21:12] VITALS: BP 118/68; PULSE 94
[2021-03-29] MEDS: clonazePAM 0.5 MG TABLET PO ×2 (08:30→20:12)
[2021-03-29] MEDS: Ondansetron ODT 4 MG TAB.RAPDIS TRANSLINGU (08:30)
[2021-03-29 09:48] VITALS: BP 112/66; PULSE 102; RESP 14; TEMP 36.6; O2SAT 100
[2021-03-29] MEDS: lamoTRIgine 25 MG TABLET 50 MG PO (09:49)
[2021-03-29] MEDS: cloNIDine HCL 0.1 MG TABLET PO ×2 (09:49→20:12)
[2021-03-29] MEDS: ARIPiprazole 10 MG TABLET PO (09:57)
[2021-03-29] MEDS: LORazepam 1 MG TABLET PO ×3 (11:27→21:52)
[2021-03-29] MEDS: hydrOXYzine HCL 25 MG TABLET PO (14:35)
--- NOTE | 2021-03-29 16:23 | P.PNPSI_ITS ---
Subjective Subjective Date of Service: 03/29/21 Reason For Visit: conversion disorder Interim History: Patient seen and discussed with team. Patient evaluated this morning and upon interview she reports she had a seizure last nightbut does not remember it. Has been in bed all day.Had an incident of superficial cutting last night with a fork, told her RN and gave up the fork. Still has headaches. Says her increase in vistaril to Q6H PRN kind of helped. Says trazodone has helped with sleep. [place] triggered today due to a peer being verbally aggressive on the unit., Also says her roommate screams, it makes me fucking scared. In the milieu, patient is safe but isolative in behavior. Denies SI/SIB/HI upon inquiry. Denies irritability or assaultive ideation. Says she feels safe. Medication Compliance: Yes Side effects from medications: No Attending Groups: Yes Review of Systems Acute medical concerns: No Medical Review of Systems: unchanged Mental Status Exam Mental Status Exam Narrative: Patient Appearance:?Appropriate Patient Orientation:?Person, Place, Time and Situation Level of Consciousness:?Alert Patient Behavior:?Appropriate, Talkative, Cooperative and Good Eye Contact Mood Description:?Depressed and Flat Affect Description:?Flat Patient Cognition Impaired:?No Ability to Follow Directions:?Good Speech Pattern:?Spontaneous Speech Memory Description:?Intact Hallucinations:?None Delusions:?Not Present Perceptual Disturbances:?Depersonalization and Derealization Thought Process:?Intact and Rumination Thought Content:?positive for Circumstantial and positive for Suicidal Ideation (denies) Depressive Symptoms:?Increased Anxiety, Insomnia and Difficulty Sleeping Judgment:?Good Diagnostics Vital Signs (24Hr): Vital Signs - 24 hr 03/28/21 17:00 03/28/21 21:12 03/29/21 09:48 Temperature 98.2 F 98 F Pulse Rate 84 94 102 H Respiratory Rate 16 14 Blood Pressure 114/82 118/68 112/66 Pulse Oximetry 99 100 BMI result Verdana 4 Body Mass Index Verdana 4 25.8 Verdana 4 Verdana 4 Labs Results: 03/24/21 16:57 03/24/21 16:57 Medications Medications Current Medications Al Hydroxide/Mg Hydroxide (Magnesium Hydrox/Alum Hydrox 30 Ml Oral.Susp) 30 ml PO Q6H PRN PRN Reason: Heartburn/Nausea Last Admin: 03/26/21 20:26 Dose: 30 ml Documented by: Aripiprazole (Aripiprazole 10 Mg Tablet) 10 mg PO DAILY [facility] Last Admin: 03/29/21 09:57 Dose: 10 mg Documented by: Clonazepam (Clonazepam 0.5 Mg Tablet) 0.5 mg PO BID [facility] Last Admin: 03/29/21 08:30 Dose: 0.5 mg Documented by: Clonidine HCl (Clonidine Hcl 0.1 Mg Tablet) 0.1 mg PO BID [facility]; Protocol Last Admin: 03/29/21 09:49 Dose: 0.1 mg Documented by: Hydroxyzine HCl (Hydroxyzine Hcl 50 Mg Tablet) 50 mg PO BEDTIME [facility] Last Admin: 03/28/21 20:59 Dose: 50 mg Documented by: Hydroxyzine HCl (Hydroxyzine Hcl 25 Mg Tablet) 25 mg PO Q6H PRN PRN Reason: Anxiety Last Admin: 03/29/21 14:35 Dose: 25 mg Documented by: Lamotrigine (Lamotrigine 25 Mg Tablet) 50 mg PO DAILY [facility] Last Admin: 03/29/21 09:49 Dose: 50 mg Documented by: Lorazepam (Lorazepam 1 Mg Tablet) 1 mg PO Q4H PRN PRN Reason: agitation Last Admin: 03/29/21 11:27 Dose: 1 mg Documented by: Magnesium Hydroxide (Milk Of Magnesia 30 Ml Oral.Susp) 30 ml PO DAILY PRN PRN Reason: Constipation Mirtazapine (Mirtazapine 15 Mg Tablet) 15 mg PO BEDTIME [facility] Last Admin: 03/28/21 20:59 Dose: 15 mg Documented by: Ondansetron HCl (Ondansetron Odt 8 Mg Tab.Rapdis) 8 mg TRANSLINGU BEDTIME [facility] Last Admin: 03/28/21 20:57 Dose: 8 mg Documented by: Ondansetron HCl (Ondansetron Odt 4 Mg Tab.Rapdis) 4 mg TRANSLINGU DAILY PRN PRN Reason: Nausea Last Admin: 03/29/21 08:30 Dose: 4 mg Documented by: Trazodone HCl (Trazodone Hcl 50 Mg Tablet) 50 mg PO BEDTIME [facility] Allergies Allergies Allergy/AdvReac Type Severity Reaction Status Date / Time metoclopramide Allergy Muscle Verified 01/08/21 20:46 [From Reglan] cramps haloperidol [From AdvReac Severe Dystonia Verified 01/08/21 20:46 Haldol] sucralfate [From AdvReac Severe vomiting Verified 01/08/21 20:46 Carafate] band-aids AdvReac Intermediate skin Uncoded 02/04/21 17:52 irritation Assessment & Plan Assessment & Plan (1) PTSD (post-traumatic stress disorder): Status: Acute Code(s): F43.10 - Post-traumatic stress disorder, unspecified (2) Schizoaffective disorder, bipolar type: Status: Acute Code(s): F25.0 - Schizoaffective disorder, bipolar type (3) IBS (irritable bowel syndrome): Status: Acute Code(s): K58.9 - Irritable bowel syndrome without diarrhea Plan 25 yo female, history of PTSD, Schizoaffective Disorder, presents from respite with increasing pseudoseizure activity s/p COVID, needing to quarantine and not having many opportunities to process feelings due to quarantine. Pt discharged from respite as team noted increase in pseudoseizure activity and is wanting this symptom addressed. Discussed with pt and she agrees that the best way to address the symptom is ongoing psychotherapy, skill building with DBT focus, and participating in activites which increase her self-esteem and individuation. Pt is scheduled for a provider meeting next week so team may review housing options with her as she was planning to move to a residential from respite. Med regime reviewed and adjustments agreed to. Plan: Review of diagnostics Increase Abilify to 10 mg daily. Will increase maintena when due @ 04/10. Ensure with meals TID to assist with GI sx mgt. Transition to [facility] residential hopefully in a brief time 03/27: no med changes, has flu with endo scheduled by primary provider for pituitary adenoma, utilizing zophran for nausea 03/28: increase vistaril to 25 mg Q6H PRN for anxiety, schedule trazodone 50 mg QHS for sleep due to reported benefit 03/29: no med changes, discussed DBT strategies for self harm urges I spent minutes with the patient and/or on the patient floor today, greater than?50% of which was spent counseling/coordinating care. Reason for contiued inpatient stay Substantial Risk for: rapid decompensation and med/psych decompensation
[2021-03-29 17:16] VITALS: BP 110/75; PULSE 107; RESP 18; TEMP 37.1; O2SAT 97
[2021-03-29] MEDS: Ondansetron ODT 8 MG TAB.RAPDIS TRANSLINGU (20:09)
[2021-03-29] MEDS: Mirtazapine 15 MG TABLET PO (20:12)
[2021-03-29] MEDS: hydrOXYzine HCL 50 MG TABLET PO (20:12)
[2021-03-29] MEDS: traZODone HCL 50 MG TABLET PO (20:13)
[2021-03-29 20:24] VITALS: BP 119/84; PULSE 86
[2021-03-30 06:00] VITALS: BP 110/61; PULSE 95; RESP 14; TEMP 36.4; O2SAT 95
[2021-03-30] MEDS: clonazePAM 0.5 MG TABLET PO ×2 (08:28→21:51)
[2021-03-30] MEDS: Ondansetron ODT 4 MG TAB.RAPDIS TRANSLINGU (08:28)
[2021-03-30 08:52] LABS: Estimated Average Glucose 97 mg/dL
[2021-03-30] MEDS: lamoTRIgine 25 MG TABLET 50 MG PO (08:54)
[2021-03-30] MEDS: cloNIDine HCL 0.1 MG TABLET PO ×2 (08:54→21:51)
[2021-03-30] MEDS: ARIPiprazole 10 MG TABLET PO (08:55)
[2021-03-30 09:16] LABS: Cholesterol 176 mg/dL; HDL Cholesterol 76 mg/dL; LDL Cholesterol Calculated 90 mg/dl; Triglycerides 54 mg/dL
[2021-03-30 10:06] LABS: Folate 17.2 ng/mL (> or = 4.0); Vitamin B12 620 pg/mL (200-900)
[2021-03-30] MEDS: LORazepam 1 MG TABLET PO ×2 (14:13→20:05)
--- NOTE | 2021-03-30 15:27 | HO.PSYCHPN ---
Subjective Subjective Date of Service: 03/30/21 Reason For Visit: conversion disorder Subjective Notes: Conditional Voluntary Interim History: Delaney is pleased that she will be seen for a second opinion regarding her pituitary adenoma at [facility] neuroendocrine clinic on 04/16/21 11am. Reivew of the weekend and how her emotions effect her actions, behavior and locus of control. She is identifying basis for seizure activity based upon environment. Had a triggering experience with a peer over the weekend, reminding her of an instance with her brother. Discussed her feelings of powerlessness. Medication Compliance: Yes Side effects from medications: No Attending Groups: Yes Review of Systems Acute medical concerns: No Medical Review of Systems: unchanged Review of Systems Psychiatric: Reports anxiety and Reports depression Mental Status Exam Mental Status Exam Patient Appearance: Appropriate Patient Orientation: Person, Place, Time and Situation Level of Consciousness: Alert Patient Behavior: Talkative and Good Eye Contact Mood Description: Depressed, Fearful (triggered by a peer on the unit) and Anxious Affect Description: Flat Patient Cognition Impaired: No Ability to Follow Directions: Good Speech Pattern: Spontaneous Speech Memory Description: Intact Hallucinations: None Delusions: Not Present Perceptual Disturbances: Depersonalization and Derealization Thought Process: Goal Oriented Thought Content: positive for Goal Oriented Depressive Symptoms: Increased Anxiety, Difficulty Sleeping, Hopelessness, Thoughts of /Suicide, Low Self Esteem and Difficulty Concentrating Judgement: Fair Diagnostics Vital Signs (24Hr): Vital Signs - 24 hr 03/29/21 17:16 03/29/21 20:24 03/30/21 06:00 Temperature 98.8 F 97.6 F Pulse Rate 107 H 86 95 Respiratory Rate 18 14 Blood Pressure 110/75 119/84 110/61 Pulse Oximetry 97 95 BMI result Body Mass Index 25.8 Labs Results: 03/24/21 16:57 03/24/21 16:57 Labs: Laboratory Results - last 48 hr 03/30/21 03/30/21 03/30/21 08:26 08:26 08:26 Estimat Average Glucose 97 Hemoglobin A1c % 5.0 Triglycerides 54 Cholesterol 176 D LDL Cholesterol, Calc 90 HDL Cholesterol 76 D Vitamin B12 620 Folate 17.2 TSH 2.60 Medications Medications Current Medications Al Hydroxide/Mg Hydroxide (Magnesium Hydrox/Alum Hydrox 30 Ml Oral.Susp) 30 ml PO Q6H PRN PRN Reason: Heartburn/Nausea Last Admin: 03/26/21 20:26 Dose: 30 ml Documented by: Aripiprazole (Aripiprazole 10 Mg Tablet) 10 mg PO DAILY [facility] Last Admin: 03/30/21 08:55 Dose: 10 mg Documented by: Clonazepam (Clonazepam 0.5 Mg Tablet) 0.5 mg PO BID [facility] Last Admin: 03/30/21 08:28 Dose: 0.5 mg Documented by: Clonidine HCl (Clonidine Hcl 0.1 Mg Tablet) 0.1 mg PO BID [facility]; Protocol Last Admin: 03/30/21 08:54 Dose: 0.1 mg Documented by: Hydroxyzine HCl (Hydroxyzine Hcl 50 Mg Tablet) 50 mg PO BEDTIME [facility] Last Admin: 03/29/21 20:12 Dose: 50 mg Documented by: Hydroxyzine HCl (Hydroxyzine Hcl 25 Mg Tablet) 25 mg PO Q6H PRN PRN Reason: Anxiety Last Admin: 03/29/21 14:35 Dose: 25 mg Documented by: Lamotrigine (Lamotrigine 25 Mg Tablet) 50 mg PO DAILY [facility] Last Admin: 03/30/21 08:54 Dose: 50 mg Documented by: Lorazepam (Lorazepam 1 Mg Tablet) 1 mg PO Q4H PRN PRN Reason: agitation Last Admin: 03/30/21 14:13 Dose: 1 mg Documented by: Magnesium Hydroxide (Milk Of Magnesia 30 Ml Oral.Susp) 30 ml PO DAILY PRN PRN Reason: Constipation Mirtazapine (Mirtazapine 15 Mg Tablet) 15 mg PO BEDTIME [facility] Last Admin: 03/29/21 20:12 Dose: 15 mg Documented by: Ondansetron HCl (Ondansetron Odt 8 Mg Tab.Rapdis) 8 mg TRANSLINGU BEDTIME [facility] Last Admin: 03/29/21 20:09 Dose: 8 mg Documented by: Ondansetron HCl (Ondansetron Odt 4 Mg Tab.Rapdis) 4 mg TRANSLINGU DAILY PRN PRN Reason: Nausea Last Admin: 03/30/21 08:28 Dose: 4 mg Documented by: Trazodone HCl (Trazodone Hcl 50 Mg Tablet) 50 mg PO BEDTIME [facility] Last Admin: 03/29/21 20:13 Dose: 50 mg Documented by: Allergies Allergies Allergy/AdvReac Type Severity Reaction Status Date / Time metoclopramide [From Reglan] Allergy Muscle Verified 01/08/21 20:46 cramps haloperidol [From Haldol] AdvReac Severe Dystonia Verified 01/08/21 20:46 sucralfate [From Carafate] AdvReac Severe vomiting Verified 01/08/21 20:46 band-aids AdvReac Intermediate skin Uncoded 02/04/21 17:52 irritation Assessment & Plan Assessment & Plan (1) PTSD (post-traumatic stress disorder): Status: Acute Code(s): F43.10 - Post-traumatic stress disorder, unspecified (2) Schizoaffective disorder, bipolar type: Status: Acute Code(s): F25.0 - Schizoaffective disorder, bipolar type (3) IBS (irritable bowel syndrome): Status: Acute Code(s): K58.9 - Irritable bowel syndrome without diarrhea Plan 25 yo female, history of PTSD, Schizoaffective Disorder, presents from respite with increasing pseudoseizure activity s/p COVID, needing to quarantine and not having many opportunities to process feelings due to quarantine. Pt discharged from respite as team noted increase in pseudoseizure activity and is wanting this symptom addressed. Discussed with pt and she agrees that the best way to address the symptom is ongoing psychotherapy, skill building with DBT focus, and participating in activites which increase her self-esteem and individuation. Pt is scheduled for a provider meeting next week so team may review housing options with her as she was planning to move to a nursing home from respite. Med regime reviewed and adjustments agreed to. Plan: Review of diagnostics Increase Abilify to 10 mg daily. Will increase maintena when due @ 04/10. Ensure with meals TID to assist with GI sx mgt. Transition to [facility] nursing home hopefully in a brief time 03/27: no med changes, has flu with endo scheduled by primary provider for pituitary adenoma, utilizing zophran for nausea 03/28: increase vistaril to 25 mg Q6H PRN for anxiety, schedule trazodone 50 mg QHS for sleep due to reported benefit. No pseudo seizure today. Pt eating okay, no vomiting. 03/30/21: Continue current plan of care. [facility] neuroendocrine appt 04/16 11am I spent 25minutes with the patient and/or on the patient floor today, greater than?50% of which was spent counseling/coordinating care. Patient educated on: medication risk/benefits and therapeutic strategies Informed Consent: understands and further education needed Reason for contiued inpatient stay Substantial Risk for: harm to self, inability to function and rapid decompensation
[2021-03-30] MEDS: hydrOXYzine HCL 25 MG TABLET PO (16:50)
[2021-03-30 18:00] VITALS: BP 129/63; PULSE 108; RESP 18; TEMP 37.6; O2SAT 100
[2021-03-30] MEDS: Ondansetron ODT 8 MG TAB.RAPDIS TRANSLINGU (21:49)
[2021-03-30] MEDS: traZODone HCL 50 MG TABLET PO (21:52)
[2021-03-30] MEDS: hydrOXYzine HCL 50 MG TABLET PO (21:52)
[2021-03-30] MEDS: Mirtazapine 15 MG TABLET PO (21:52)
[2021-03-31] MEDS: LORazepam 1 MG TABLET PO ×3 (03:19→22:50)
[2021-03-31 08:50] VITALS: BP 109/61; PULSE 92; TEMP 37.1
[2021-03-31] MEDS: lamoTRIgine 25 MG TABLET 50 MG PO (09:10)
[2021-03-31] MEDS: clonazePAM 0.5 MG TABLET PO ×2 (09:10→22:04)
[2021-03-31] MEDS: cloNIDine HCL 0.1 MG TABLET PO ×2 (09:10→22:03)
[2021-03-31] MEDS: ARIPiprazole 10 MG TABLET PO (09:10)
[2021-03-31] MEDS: Ondansetron ODT 4 MG TAB.RAPDIS TRANSLINGU (09:38)
--- NOTE | 2021-03-31 16:51 | P.PNPSI_ITS ---
Subjective Subjective Date of Service: 03/31/21 Reason For Visit: conversion disorder Subjective Notes: Conditional Voluntary Interim History: Team has moved pt closer to the nursing station as she had an interaction with a peer over the weekend which was triggering to a similiar experience she encountered with her brother. Provider meeting was postponed until 04/03 due to schedule conflicts with [facility] team. Isolative on the unit, however did attend a.m. creative group, meeting with team,- anxious about her next placement step. Sleep interrupted with unit noise. Reports depressive anxious sx. Medication Compliance: Yes Side effects from medications: No Attending Groups: Intermittent Review of Systems Acute medical concerns: No Medical Review of Systems: unchanged Review of Systems Psychiatric: Reports anxiety and Reports depression Mental Status Exam Mental Status Exam Patient Appearance: Appropriate Patient Orientation: Person, Place, Time and Situation Level of Consciousness: Alert Patient Behavior: Talkative and Good Eye Contact Mood Description: Depressed, Fearful (triggered by a peer on the unit) and Anxious Affect Description: Flat Patient Cognition Impaired: No Ability to Follow Directions: Good Speech Pattern: Spontaneous Speech Memory Description: Intact Hallucinations: None Delusions: Not Present Perceptual Disturbances: Depersonalization and Derealization Thought Process: Goal Oriented Thought Content: positive for Goal Oriented Depressive Symptoms: Increased Anxiety, Difficulty Sleeping, Hopelessness, Low Self Esteem and Difficulty Concentrating Judgement: Fair Diagnostics Vital Signs (24Hr): Vital Signs - 24 hr 03/30/21 18:00 03/31/21 08:50 Temperature 99.6 F 98.7 F Pulse Rate 108 H 92 Respiratory Rate 18 Blood Pressure 129/63 109/61 Pulse Oximetry 100 BMI result Body Mass Index 25.8 Labs Results: 03/24/21 16:57 03/24/21 16:57 Labs: Laboratory Results - last 48 hr 03/30/21 03/30/21 03/30/21 08:26 08:26 08:26 Estimat Average Glucose 97 Hemoglobin A1c % 5.0 Triglycerides 54 Cholesterol 176 D LDL Cholesterol, Calc 90 HDL Cholesterol 76 D Vitamin B12 620 Folate 17.2 TSH 2.60 Medications Medications Current Medications Al Hydroxide/Mg Hydroxide (Magnesium Hydrox/Alum Hydrox 30 Ml Oral.Susp) 30 ml PO Q6H PRN PRN Reason: Heartburn/Nausea Last Admin: 03/26/21 20:26 Dose: 30 ml Documented by: Aripiprazole (Aripiprazole 10 Mg Tablet) 10 mg PO DAILY [facility] Last Admin: 03/31/21 09:10 Dose: 10 mg Documented by: Clonazepam (Clonazepam 0.5 Mg Tablet) 0.5 mg PO BID [facility] Last Admin: 03/31/21 09:10 Dose: 0.5 mg Documented by: Clonidine HCl (Clonidine Hcl 0.1 Mg Tablet) 0.1 mg PO BID [facility]; Protocol Last Admin: 03/31/21 09:10 Dose: 0.1 mg Documented by: Hydroxyzine HCl (Hydroxyzine Hcl 50 Mg Tablet) 50 mg PO BEDTIME [facility] Last Admin: 03/30/21 21:52 Dose: 50 mg Documented by: Hydroxyzine HCl (Hydroxyzine Hcl 25 Mg Tablet) 25 mg PO Q6H PRN PRN Reason: Anxiety Last Admin: 03/30/21 16:50 Dose: 25 mg Documented by: Lamotrigine (Lamotrigine 25 Mg Tablet) 50 mg PO DAILY [facility] Last Admin: 03/31/21 09:10 Dose: 50 mg Documented by: Lorazepam (Lorazepam 1 Mg Tablet) 1 mg PO Q4H PRN PRN Reason: agitation Last Admin: 03/31/21 03:19 Dose: 1 mg Documented by: Magnesium Hydroxide (Milk Of Magnesia 30 Ml Oral.Susp) 30 ml PO DAILY PRN PRN Reason: Constipation Mirtazapine (Mirtazapine 15 Mg Tablet) 15 mg PO BEDTIME [facility] Last Admin: 03/30/21 21:52 Dose: 15 mg Documented by: Ondansetron HCl (Ondansetron Odt 8 Mg Tab.Rapdis) 8 mg TRANSLINGU BEDTIME [facility] Last Admin: 03/30/21 21:49 Dose: 8 mg Documented by: Ondansetron HCl (Ondansetron Odt 4 Mg Tab.Rapdis) 4 mg TRANSLINGU DAILY PRN PRN Reason: Nausea Last Admin: 03/31/21 09:38 Dose: 4 mg Documented by: Trazodone HCl (Trazodone Hcl 50 Mg Tablet) 50 mg PO BEDTIME [facility] Last Admin: 03/30/21 21:52 Dose: 50 mg Documented by: Allergies Allergies Allergy/AdvReac Type Severity Reaction Status Date / Time metoclopramide [From Reglan] Allergy Muscle Verified 01/08/21 20:46 cramps haloperidol [From Haldol] AdvReac Severe Dystonia Verified 01/08/21 20:46 sucralfate [From Carafate] AdvReac Severe vomiting Verified 01/08/21 20:46 band-aids AdvReac Intermediate skin Uncoded 02/04/21 17:52 irritation Assessment & Plan Assessment & Plan (1) PTSD (post-traumatic stress disorder): Status: Acute Code(s): F43.10 - Post-traumatic stress disorder, unspecified (2) Schizoaffective disorder, bipolar type: Status: Acute Code(s): F25.0 - Schizoaffective disorder, bipolar type (3) IBS (irritable bowel syndrome): Status: Acute Code(s): K58.9 - Irritable bowel syndrome without diarrhea Plan 25 yo female, history of PTSD, Schizoaffective Disorder, presents from respite with increasing pseudoseizure activity s/p COVID, needing to quarantine and not having many opportunities to process feelings due to quarantine. Pt discharged from respite as team noted increase in pseudoseizure activity and is wanting this symptom addressed. Discussed with pt and she agrees that the best way to address the symptom is ongoing psychotherapy, skill building with DBT focus, and participating in activites which increase her self-esteem and individuation. Pt is scheduled for a provider meeting next week so team may review housing options with her as [facility] Med regime reviewed and adjustments agreed to. Plan: Review of diagnostics Increase Abilify to 10 mg daily. Will increase maintena when due @ 04/10. Ensure with meals TID to assist with GI sx mgt. Transition to [facility] intermediate hopefully in a brief time 03/27: no med changes, has flu with endo scheduled by primary provider for pituitary adenoma, utilizing zophran for nausea 03/28: increase vistaril to 25 mg Q6H PRN for anxiety, schedule trazodone 50 mg QHS for sleep due to reported benefit. No pseudo seizure today. Pt eating okay, no vomiting. 03/31/21: Continue current plan of care. I spent 25 minutes with the patient and/or on the patient floor today, greater than?50% of which was spent counseling/coordinating care. Patient educated on: medication risk/benefits, therapeutic strategies and medical condition Informed Consent: understands and further education needed Reason for contiued inpatient stay Substantial Risk for: harm to self, inability to function and rapid decompensation
[2021-03-31 18:00] VITALS: BP 122/79; PULSE 103; RESP 16
[2021-03-31] MEDS: hydrOXYzine HCL 25 MG TABLET PO (18:46)
[2021-03-31] MEDS: Mirtazapine 15 MG TABLET PO (22:03)
[2021-03-31] MEDS: traZODone HCL 50 MG TABLET PO (22:03)
[2021-03-31] MEDS: Ondansetron ODT 8 MG TAB.RAPDIS TRANSLINGU (22:03)
--- NOTE | 2021-03-31 22:57 | PC.NURSE ---
PT admitted to this typewriter aligner that she superficially cut her right arm with a staple. Fresh superficial cuts visible on forearm, not actively bleeding. PT stated thoughts of her past were extremely overwhelming and she could not fight the urge to self harm. Ativan PO given as pt was visibly anxious, effect pendng. Discussed safety plan with pt and removed any objects in her room that could potentially used to harm herself.
[2021-04-01] MEDS: clonazePAM 0.5 MG TABLET PO ×2 (08:56→20:18)
[2021-04-01] MEDS: lamoTRIgine 25 MG TABLET 50 MG PO (08:56)
[2021-04-01] MEDS: cloNIDine HCL 0.1 MG TABLET PO ×2 (08:57→20:17)
[2021-04-01] MEDS: ARIPiprazole 10 MG TABLET PO (08:57)
[2021-04-01 09:00] VITALS: BP 114/70; PULSE 98; TEMP 36.6
[2021-04-01] MEDS: Ondansetron ODT 4 MG TAB.RAPDIS TRANSLINGU (09:53)
[2021-04-01] MEDS: hydrOXYzine HCL 25 MG TABLET PO ×2 (09:53→16:36)
[2021-04-01] MEDS: LORazepam 1 MG TABLET PO (14:07)
--- NOTE | 2021-04-01 17:15 | HO.PSYCHPN ---
Subjective Subjective Date of Service: 04/01/21 Reason For Visit: conversion disorder Interim History: Patient seen and discussed with team. Patient evaluated this morning and upon interview she reports she has not been sleeping, denies benefit on medication, attributes this to her roommate making noise at night. She went to art group. Continues to report struggling with flashbacks and headaches. She is future oriented, discussed upcoming [facility] meeting. Pt was able to disclose urges for self harm and gave me plastic utensils and straws she had in her room that she had thoughts of using for superficial cutting. Provided positive feedback for disclosure. In the milieu, patient is safe but isolative in behavior. Denies irritability or assaultive ideation. Says she feels safe. Medication Compliance: Yes Side effects from medications: No Attending Groups: Intermittent Review of Systems Acute medical concerns: No Medical Review of Systems: unchanged Mental Status Exam Mental Status Exam Narrative: Patient Appearance:?Appropriate Patient Orientation:?Person, Place and Time Level of Consciousness:?Alert Patient Behavior:?Appropriate, Talkative, Cooperative and Good Eye Contact Mood Description:?Flat Affect Description:?Flat Patient Cognition Impaired:?No Ability to Follow Directions:?Good Speech Pattern:?Spontaneous Speech Memory Description:?Intact Hallucinations:?None Delusions:?Not Present Perceptual Disturbances:?Depersonalization and Derealization Thought Process:?Distracted and Rumination Thought Content:?positive for Goal Oriented, positive for Perseveration and positive for Suicidal Ideation (denies) Depressive Symptoms:?Increased Anxiety, Difficulty Sleeping and Thoughts of /Suicide (denies) Judgement:?Fair Diagnostics Vital Signs (24Hr): Vital Signs - 24 hr 03/31/21 18:00 04/01/21 09:00 Temperature 98 F Pulse Rate 103 H 98 Respiratory Rate 16 Blood Pressure 122/79 114/70 BMI result Body Mass Index 25.8 Labs Results: 03/24/21 16:57 03/24/21 16:57 Medications Medications Current Medications Al Hydroxide/Mg Hydroxide (Magnesium Hydrox/Alum Hydrox 30 Ml Oral.Susp) 30 ml PO Q6H PRN PRN Reason: Heartburn/Nausea Last Admin: 03/26/21 20:26 Dose: 30 ml Documented by: Aripiprazole (Aripiprazole 10 Mg Tablet) 10 mg PO DAILY [facility] Last Admin: 04/01/21 08:57 Dose: 10 mg Documented by: Clonazepam (Clonazepam 0.5 Mg Tablet) 0.5 mg PO BID [facility] Last Admin: 04/01/21 08:56 Dose: 0.5 mg Documented by: Clonidine HCl (Clonidine Hcl 0.1 Mg Tablet) 0.1 mg PO BID [facility]; Protocol Last Admin: 04/01/21 08:57 Dose: 0.1 mg Documented by: Hydroxyzine HCl (Hydroxyzine Hcl 50 Mg Tablet) 50 mg PO BEDTIME [facility] Last Admin: 03/31/21 22:07 Dose: Not Given Documented by: Hydroxyzine HCl (Hydroxyzine Hcl 25 Mg Tablet) 25 mg PO Q6H PRN PRN Reason: Anxiety Last Admin: 04/01/21 16:36 Dose: 25 mg Documented by: Lamotrigine (Lamotrigine 25 Mg Tablet) 50 mg PO DAILY [facility] Last Admin: 04/01/21 08:56 Dose: 50 mg Documented by: Lorazepam (Lorazepam 1 Mg Tablet) 1 mg PO Q4H PRN PRN Reason: agitation Last Admin: 04/01/21 14:07 Dose: 1 mg Documented by: Magnesium Hydroxide (Milk Of Magnesia 30 Ml Oral.Susp) 30 ml PO DAILY PRN PRN Reason: Constipation Mirtazapine (Mirtazapine 15 Mg Tablet) 15 mg PO BEDTIME [facility] Last Admin: 03/31/21 22:03 Dose: 15 mg Documented by: Ondansetron HCl (Ondansetron Odt 8 Mg Tab.Rapdis) 8 mg TRANSLINGU BEDTIME [facility] Last Admin: 03/31/21 22:03 Dose: 8 mg Documented by: Ondansetron HCl (Ondansetron Odt 4 Mg Tab.Rapdis) 4 mg TRANSLINGU DAILY PRN PRN Reason: Nausea Last Admin: 04/01/21 09:53 Dose: 4 mg Documented by: Trazodone HCl (Trazodone Hcl 50 Mg Tablet) 50 mg PO BEDTIME [facility] Last Admin: 03/31/21 22:03 Dose: 50 mg Documented by: Allergies Allergies Allergy/AdvReac Type Severity Reaction Status Date / Time metoclopramide [From Reglan] Allergy Muscle Verified 01/08/21 20:46 cramps haloperidol [From Haldol] AdvReac Severe Dystonia Verified 01/08/21 20:46 sucralfate [From Carafate] AdvReac Severe vomiting Verified 01/08/21 20:46 band-aids AdvReac Intermediate skin Uncoded 02/04/21 17:52 irritation Assessment & Plan Assessment & Plan (1) PTSD (post-traumatic stress disorder): Status: Acute Code(s): F43.10 - Post-traumatic stress disorder, unspecified (2) Schizoaffective disorder, bipolar type: Status: Acute Code(s): F25.0 - Schizoaffective disorder, bipolar type (3) IBS (irritable bowel syndrome): Status: Acute Code(s): K58.9 - Irritable bowel syndrome without diarrhea Plan 25 yo female, history of PTSD, Schizoaffective Disorder, presents from respite with increasing pseudoseizure activity s/p COVID, needing to quarantine and not having many opportunities to process feelings due to quarantine. Pt discharged from respite as team noted increase in pseudoseizure activity and is wanting this symptom addressed. Discussed with pt and she agrees that the best way to address the symptom is ongoing psychotherapy, skill building with DBT focus, and participating in activites which increase her self-esteem and individuation. Pt is scheduled for a provider meeting next week so team may review housing options with her as she was planning to move to a usp from respite. Med regime reviewed and adjustments agreed to. Plan: Review of diagnostics Increase Abilify to 10 mg daily. Will increase maintena when due @ 04/10. Ensure with meals TID to assist with GI sx mgt. Transition to [facility] usp hopefully in a brief time 03/27: no med changes, has flu with endo scheduled by primary provider for pituitary adenoma, utilizing zophran for nausea 03/28: increase vistaril to 25 mg Q6H PRN for anxiety, schedule trazodone 50 mg QHS for sleep due to reported benefit. No pseudo seizure today. Pt eating okay, no vomiting. 03/31/21: Continue current plan of care. 04/01/21: Continue current medication, will trial an increase in trazodone to 100 mg QHS and monitor for benefit, eating okay today. I spent minutes with the patient and/or on the patient floor today, greater than?50% of which was spent counseling/coordinating care. Reason for contiued inpatient stay Substantial Risk for: rapid decompensation and med/psych decompensation
[2021-04-01 19:32] VITALS: BP 109/58; PULSE 106; TEMP 37; O2SAT 98
[2021-04-01] MEDS: Ondansetron ODT 8 MG TAB.RAPDIS TRANSLINGU (20:15)
[2021-04-01] MEDS: traZODone HCL 100 MG TABLET PO (20:17)
[2021-04-01] MEDS: hydrOXYzine HCL 50 MG TABLET PO (20:17)
[2021-04-01] MEDS: Mirtazapine 15 MG TABLET PO (20:17)
[2021-04-02 09:00] VITALS: BP 118/68; PULSE 108; TEMP 36.7
[2021-04-02] MEDS: clonazePAM 0.5 MG TABLET PO ×2 (09:13→20:39)
[2021-04-02] MEDS: cloNIDine HCL 0.1 MG TABLET PO (09:13)
[2021-04-02] MEDS: lamoTRIgine 25 MG TABLET 50 MG PO (09:13)
[2021-04-02] MEDS: ARIPiprazole 10 MG TABLET PO (09:13)
[2021-04-02] MEDS: LORazepam 1 MG TABLET PO ×2 (09:17→18:03)
[2021-04-02] MEDS: hydrOXYzine HCL 25 MG TABLET PO (11:07)
--- NOTE | 2021-04-02 14:28 | HO.PSYCHPN ---
Subjective Subjective Date of Service: 04/02/21 Reason For Visit: conversion disorder Interim History: Delaney today focused on sx of anxiety, panic, triggers as precipitants to cutting symptoms. Cutting has increased-partly she reports as she cannot think of other relief-producing interventions. Review of grounding ideas. Contracts for safety on the unit- cutting is just relief for me. Discussed decreasing Lorazepam and trialing [place], Trileptal, titration of Lamictal, Risperdal, Trilafon-she will consider. Medication Compliance: Yes Review of Systems Acute medical concerns: No Medical Review of Systems: unchanged Review of Systems Reports behavioral changes Psychiatric: Reports abnormal sleep pattern, Reports anxiety, Reports behavioral changes, Reports anhedonia, Reports suicidal ideation (denies) and Reports other (SIBS) Mental Status Exam Mental Status Exam Patient Appearance: Appropriate Patient Orientation: Person, Place and Time Level of Consciousness: Alert Patient Behavior: Appropriate, Talkative, Cooperative and Good Eye Contact Mood Description: Flat Affect Description: Flat Patient Cognition Impaired: No Ability to Follow Directions: Good Speech Pattern: Spontaneous Speech Memory Description: Intact Hallucinations: None Delusions: Not Present Perceptual Disturbances: Depersonalization and Derealization Thought Process: Distracted and Rumination Thought Content: positive for Goal Oriented, positive for Perseveration and positive for Suicidal Ideation (denies) Depressive Symptoms: Increased Anxiety, Difficulty Sleeping and Thoughts of /Suicide (denies) Judgement: Fair Diagnostics Vital Signs (24Hr): Vital Signs - 24 hr 04/01/21 19:32 04/02/21 09:00 Temperature 98.6 F 98.1 F Pulse Rate 106 H 108 H Blood Pressure 109/58 L 118/68 Pulse Oximetry 98 BMI result Body Mass Index 25.8 Labs Results: 03/24/21 16:57 03/24/21 16:57 Medications Medications Current Medications Al Hydroxide/Mg Hydroxide (Magnesium Hydrox/Alum Hydrox 30 Ml Oral.Susp) 30 ml PO Q6H PRN PRN Reason: Heartburn/Nausea Last Admin: 03/26/21 20:26 Dose: 30 ml Documented by: Aripiprazole (Aripiprazole 10 Mg Tablet) 10 mg PO DAILY [facility] Last Admin: 04/02/21 09:13 Dose: 10 mg Documented by: Clonazepam (Clonazepam 0.5 Mg Tablet) 0.5 mg PO BID [facility] Last Admin: 04/02/21 09:13 Dose: 0.5 mg Documented by: Clonidine HCl (Clonidine Hcl 0.1 Mg Tablet) 0.1 mg PO BID [facility]; Protocol Last Admin: 04/02/21 09:13 Dose: 0.1 mg Documented by: Hydroxyzine HCl (Hydroxyzine Hcl 50 Mg Tablet) 50 mg PO BEDTIME [facility] Last Admin: 04/01/21 20:17 Dose: 50 mg Documented by: Hydroxyzine HCl (Hydroxyzine Hcl 25 Mg Tablet) 25 mg PO Q6H PRN PRN Reason: Anxiety Last Admin: 04/02/21 11:07 Dose: 25 mg Documented by: Lamotrigine (Lamotrigine 25 Mg Tablet) 50 mg PO DAILY [facility] Last Admin: 04/02/21 09:13 Dose: 50 mg Documented by: Lorazepam (Lorazepam 1 Mg Tablet) 1 mg PO Q4H PRN PRN Reason: agitation Last Admin: 04/02/21 09:17 Dose: 1 mg Documented by: Magnesium Hydroxide (Milk Of Magnesia 30 Ml Oral.Susp) 30 ml PO DAILY PRN PRN Reason: Constipation Mirtazapine (Mirtazapine 15 Mg Tablet) 15 mg PO BEDTIME [facility] Last Admin: 04/01/21 20:17 Dose: 15 mg Documented by: Ondansetron HCl (Ondansetron Odt 8 Mg Tab.Rapdis) 8 mg TRANSLINGU BEDTIME [facility] Last Admin: 04/01/21 20:15 Dose: 8 mg Documented by: Ondansetron HCl (Ondansetron Odt 4 Mg Tab.Rapdis) 4 mg TRANSLINGU DAILY PRN PRN Reason: Nausea Last Admin: 04/01/21 09:53 Dose: 4 mg Documented by: Trazodone HCl (Trazodone Hcl 100 Mg Tablet) 100 mg PO BEDTIME [facility] Last Admin: 04/01/21 20:17 Dose: 100 mg Documented by: Allergies Allergies Allergy/AdvReac Type Severity Reaction Status Date / Time metoclopramide [From Reglan] Allergy Muscle Verified 01/08/21 20:46 cramps haloperidol [From Haldol] AdvReac Severe Dystonia Verified 01/08/21 20:46 sucralfate [From Carafate] AdvReac Severe vomiting Verified 01/08/21 20:46 band-aids AdvReac Intermediate skin Uncoded 02/04/21 17:52 irritation Assessment & Plan Assessment & Plan (1) PTSD (post-traumatic stress disorder): Status: Acute Code(s): F43.10 - Post-traumatic stress disorder, unspecified (2) Schizoaffective disorder, bipolar type: Status: Acute Code(s): F25.0 - Schizoaffective disorder, bipolar type (3) IBS (irritable bowel syndrome): Status: Acute Code(s): K58.9 - Irritable bowel syndrome without diarrhea Plan 25 yo female, history of PTSD, Schizoaffective Disorder, presents from respite with increasing pseudoseizure activity s/p COVID, needing to quarantine and not having many opportunities to process feelings due to quarantine. Pt discharged from respite as team noted increase in pseudoseizure activity and is wanting this symptom addressed. Discussed with pt and she agrees that the best way to address the symptom is ongoing psychotherapy, skill building with DBT focus, and participating in activites which increase her self-esteem and individuation. Pt is scheduled for a provider meeting next week so team may review housing options with her as [facility] Med regime reviewed and adjustments agreed to. Plan: Review of diagnostics Increase Abilify to 10 mg daily. Will increase maintena when due @ 04/10. Ensure with meals TID to assist with GI sx mgt. Transition to [facility] alf hopefully in a brief time 03/27: no med changes, has flu with endo scheduled by primary provider for pituitary adenoma, utilizing zophran for nausea 03/28: increase vistaril to 25 mg Q6H PRN for anxiety, schedule trazodone 50 mg QHS for sleep due to reported benefit. No pseudo seizure today. Pt eating okay, no vomiting. 03/31/21: Continue current plan of care. 04/02/21: Review of grounding and possible medicine assist with SIBS- discussion of [place], Risperdal, Trileptal, Lamictal titration and decreasing Lorazepam I spent 25 minutes with the patient and/or on the patient floor today, greater than?50% of which was spent counseling/coordinating care. Patient educated on: therapeutic strategies Informed Consent: understands and further education needed Reason for contiued inpatient stay Substantial Risk for: harm to self, inability to function and rapid decompensation
[2021-04-02 17:45] VITALS: BP 122/75; PULSE 120; RESP 18; TEMP 37.7; O2SAT 97
[2021-04-02] MEDS: Ondansetron ODT 8 MG TAB.RAPDIS TRANSLINGU (20:38)
[2021-04-02] MEDS: hydrOXYzine HCL 50 MG TABLET PO (20:38)
[2021-04-02] MEDS: traZODone HCL 100 MG TABLET PO (20:38)
[2021-04-02] MEDS: Prazosin HCL 1 MG CAPSULE 2 MG PO (20:39)
[2021-04-02] MEDS: Mirtazapine 15 MG TABLET PO (20:39)
[2021-04-02 20:43] VITALS: BP 121/63; PULSE 106
[2021-04-03 06:00] VITALS: BP 128/76; PULSE 88; RESP 14; TEMP 36.6; O2SAT 98
[2021-04-03] MEDS: clonazePAM 0.5 MG TABLET PO ×2 (08:07→19:47)
[2021-04-03] MEDS: Ondansetron ODT 4 MG TAB.RAPDIS TRANSLINGU (08:07)
[2021-04-03] MEDS: ARIPiprazole 10 MG TABLET PO (09:16)
[2021-04-03] MEDS: lamoTRIgine 25 MG TABLET 50 MG PO (09:16)
--- NOTE | 2021-04-03 10:44 | HO.PSYCHPN ---
Subjective Subjective Date of Service: 04/03/21 Reason For Visit: conversion disorder Interim History: Delaney initiated Prazosin 2 mg HS as she had discussed with Chanda Lechuga MERCHANDISE SUPERVISOR. Meeting with M5 team, [facility], evaluation of seizures during previous admission and interventions which we have found effective in assisting Delaney to express herself, feel heard and acknowledged and process concerns verbally vs cutting or seizure activity. Respite team reports 7 seizures from 03/03-03/16. Activity occurs when pt is not apparantly stressed (doing art, playing board games, during meds-episodes lasting 55 minutes plus without pt response). Respite reported pt's mood was good while there, no behaviors. Discussed pt's response to support on the unit. One seizure reported 2/5 since admission. Discussed activity being non-epileptic, stress and PTSD related and responsive to support and alliance. Respite expressed concern that seizures were due to untreated pituitary adenoma. Reviewed recommendations for imaging q 6 months as treatment plan for these and upcoming [facility] neuroendocrine and pituitary tumor clinic appt on 04/16 for consultation. Respite will be looking into interventions to put into place when she returns to [facility] out patient services. Medication Compliance: Yes Side effects from medications: No Attending Groups: Yes Review of Systems Acute medical concerns: No Medical Review of Systems: unchanged Review of Systems Psychiatric: Reports abnormal sleep pattern, Reports anxiety, Reports depression, Reports difficulty concentrating, Reports hopelessness, Reports anhedonia and Reports other (SIBS-scratching herself with a staple) Mental Status Exam Mental Status Exam Patient Appearance: Appropriate Patient Orientation: Person, Place and Time Level of Consciousness: Alert Patient Behavior: Appropriate, Talkative, Cooperative and Good Eye Contact Mood Description: Flat Affect Description: Flat Patient Cognition Impaired: No Ability to Follow Directions: Good Speech Pattern: Spontaneous Speech Memory Description: Intact Hallucinations: None Delusions: Not Present Perceptual Disturbances: Depersonalization and Derealization Thought Process: Distracted and Rumination Thought Content: positive for Goal Oriented, positive for Perseveration and positive for Suicidal Ideation (denies) Depressive Symptoms: Increased Anxiety, Difficulty Sleeping and Thoughts of /Suicide (denies) Judgement: Fair Diagnostics Vital Signs (24Hr): Vital Signs - 24 hr 04/02/21 17:45 04/02/21 20:43 Temperature 99.9 F Pulse Rate 120 H 106 H Respiratory Rate 18 Blood Pressure 122/75 121/63 Pulse Oximetry 97 BMI result Body Mass Index 25.8 Labs Results: 03/24/21 16:57 03/24/21 16:57 Medications Medications Current Medications Al Hydroxide/Mg Hydroxide (Magnesium Hydrox/Alum Hydrox 30 Ml Oral.Susp) 30 ml PO Q6H PRN PRN Reason: Heartburn/Nausea Last Admin: 03/26/21 20:26 Dose: 30 ml Documented by: Aripiprazole (Aripiprazole 10 Mg Tablet) 10 mg PO DAILY [facility] Last Admin: 04/03/21 09:16 Dose: 10 mg Documented by: Clonazepam (Clonazepam 0.5 Mg Tablet) 0.5 mg PO BID [facility] Last Admin: 04/03/21 08:07 Dose: 0.5 mg Documented by: Hydroxyzine HCl (Hydroxyzine Hcl 50 Mg Tablet) 50 mg PO BEDTIME [facility] Last Admin: 04/02/21 20:38 Dose: 50 mg Documented by: Hydroxyzine HCl (Hydroxyzine Hcl 25 Mg Tablet) 25 mg PO Q6H PRN PRN Reason: Anxiety Last Admin: 04/02/21 11:07 Dose: 25 mg Documented by: Lamotrigine (Lamotrigine 25 Mg Tablet) 50 mg PO DAILY [facility] Last Admin: 04/03/21 09:16 Dose: 50 mg Documented by: Lorazepam (Lorazepam 1 Mg Tablet) 1 mg PO Q4H PRN PRN Reason: agitation Last Admin: 04/02/21 18:03 Dose: 1 mg Documented by: Magnesium Hydroxide (Milk Of Magnesia 30 Ml Oral.Susp) 30 ml PO DAILY PRN PRN Reason: Constipation Mirtazapine (Mirtazapine 15 Mg Tablet) 15 mg PO BEDTIME [facility] Last Admin: 04/02/21 20:39 Dose: 15 mg Documented by: Ondansetron HCl (Ondansetron Odt 8 Mg Tab.Rapdis) 8 mg TRANSLINGU BEDTIME [facility] Last Admin: 04/02/21 20:38 Dose: 8 mg Documented by: Ondansetron HCl (Ondansetron Odt 4 Mg Tab.Rapdis) 4 mg TRANSLINGU DAILY PRN PRN Reason: Nausea Last Admin: 04/03/21 08:07 Dose: 4 mg Documented by: Prazosin HCl (Prazosin Hcl 1 Mg Capsule) 2 mg PO BEDTIME [facility]; Protocol Last Admin: 04/02/21 20:39 Dose: 2 mg Documented by: Trazodone HCl (Trazodone Hcl 100 Mg Tablet) 100 mg PO BEDTIME [facility] Last Admin: 04/02/21 20:38 Dose: 100 mg Documented by: Allergies Allergies Allergy/AdvReac Type Severity Reaction Status Date / Time metoclopramide [From Reglan] Allergy Muscle Verified 01/08/21 20:46 cramps haloperidol [From Haldol] AdvReac Severe Dystonia Verified 01/08/21 20:46 sucralfate [From Carafate] AdvReac Severe vomiting Verified 01/08/21 20:46 band-aids AdvReac Intermediate skin Uncoded 02/04/21 17:52 irritation Assessment & Plan Assessment & Plan (1) PTSD (post-traumatic stress disorder): Status: Acute Code(s): F43.10 - Post-traumatic stress disorder, unspecified (2) Schizoaffective disorder, bipolar type: Status: Acute Code(s): F25.0 - Schizoaffective disorder, bipolar type (3) IBS (irritable bowel syndrome): Status: Acute Code(s): K58.9 - Irritable bowel syndrome without diarrhea Plan 25 yo female, history of PTSD, Schizoaffective Disorder, presents from respite with increasing pseudoseizure activity s/p COVID, needing to quarantine and not having many opportunities to process feelings due to quarantine. Pt discharged from respite as team noted increase in pseudoseizure activity and is wanting this symptom addressed. Discussed with pt and she agrees that the best way to address the symptom is ongoing psychotherapy, skill building with DBT focus, and participating in activites which increase her self-esteem and individuation. Pt is scheduled for a provider meeting next week so team may review housing options with her as she was planning to move to a correction from respite. Med regime reviewed and adjustments agreed to. Plan: Review of diagnostics Increase Abilify to 10 mg daily. Will increase maintena when due @ 04/10. Ensure with meals TID to assist with GI sx mgt. Transition to [facility] correction hopefully in a brief time 03/27: no med changes, has flu with endo scheduled by primary provider for pituitary adenoma, utilizing zophran for nausea 03/28: increase vistaril to 25 mg Q6H PRN for anxiety, schedule trazodone 50 mg QHS for sleep due to reported benefit. No pseudo seizure today. Pt eating okay, no vomiting. 03/31/21: Continue current plan of care. 04/02/21: Review of grounding and possible medicine assist with SIBS- discussion of [place], Risperdal, Trileptal, Lamictal titration and decreasing Lorazepam 04/03/21: Continue current plan of care. I spent 60 minutes with the patient and/or on the patient floor today, greater than?50% of which was spent counseling/coordinating care. Reason for contiued inpatient stay Substantial Risk for: harm to self, inability to function and rapid decompensation
[2021-04-03 18:05] VITALS: BP 139/79; PULSE 110; RESP 18; TEMP 37.2; O2SAT 98
[2021-04-03] MEDS: LORazepam 1 MG TABLET PO ×2 (18:18→23:45)
[2021-04-03] MEDS: Mirtazapine 15 MG TABLET PO (19:47)
[2021-04-03] MEDS: hydrOXYzine HCL 50 MG TABLET PO (19:47)
[2021-04-03] MEDS: Ondansetron ODT 8 MG TAB.RAPDIS TRANSLINGU (19:48)
[2021-04-03] MEDS: Prazosin HCL 1 MG CAPSULE 2 MG PO ×2 (19:48→21:43)
[2021-04-03 19:56] VITALS: BP 133/77; PULSE 113
[2021-04-03] MEDS: traZODone HCL 100 MG TABLET PO (21:44)
[2021-04-04 08:30] VITALS: BP 112/75; PULSE 123; TEMP 37
[2021-04-04] MEDS: ARIPiprazole 10 MG TABLET PO (09:08)
[2021-04-04] MEDS: lamoTRIgine 25 MG TABLET 50 MG PO (09:08)
[2021-04-04] MEDS: clonazePAM 0.5 MG TABLET PO ×2 (09:08→21:18)
--- NOTE | 2021-04-04 11:50 | HO.PSYCHPN ---
Subjective Subjective Date of Service: 04/04/21 Reason For Visit: conversion disorder Interim History: Discussion with Delaney of meeting yesterday. She discussed her disappointment with not being assigned a intermediate-reviewed that this assignment may take time and is worth the time to find the best placement for her needs. Reivew of medications. Pt and Chanda Lechuga HAZARDOUS WASTE TECHNICIAN are titrating Prazosin. Discussed grounding, decreasing SIBS and medication options which may assist. Pt reports two pseudoseizures on 04/03-attempting to manage some of these symptoms independently as she has a clearer understanding of their origin. Apprehensive regarding [facility] [place]. Medication Compliance: Yes Side effects from medications: No Attending Groups: Yes Review of Systems Acute medical concerns: No Medical Review of Systems: unchanged Review of Systems Psychiatric: Reports abnormal sleep pattern, Reports anxiety, Reports depression, Reports difficulty concentrating, Reports hopelessness, Reports anhedonia and Reports other (SIBS-scratching herself with a staple) Mental Status Exam Mental Status Exam Patient Appearance: Appropriate Patient Orientation: Person, Place and Time Level of Consciousness: Alert Patient Behavior: Appropriate, Talkative, Cooperative and Good Eye Contact Mood Description: Flat Affect Description: Flat Patient Cognition Impaired: No Ability to Follow Directions: Good Speech Pattern: Spontaneous Speech Memory Description: Intact Hallucinations: None Delusions: Not Present Perceptual Disturbances: Depersonalization and Derealization Thought Process: Distracted and Rumination Thought Content: positive for Goal Oriented, positive for Perseveration and positive for Suicidal Ideation (denies) Depressive Symptoms: Increased Anxiety, Difficulty Sleeping and Thoughts of /Suicide (denies) Judgement: Fair Diagnostics Vital Signs (24Hr): Vital Signs - 24 hr 04/03/21 18:05 04/03/21 19:56 04/04/21 08:30 Temperature 98.9 F 98.6 F Pulse Rate 110 H 113 H 123 H Respiratory Rate 18 Blood Pressure 139/79 133/77 112/75 Pulse Oximetry 98 BMI result Body Mass Index 25.8 Labs Results: 03/24/21 16:57 03/24/21 16:57 Medications Medications Current Medications Al Hydroxide/Mg Hydroxide (Magnesium Hydrox/Alum Hydrox 30 Ml Oral.Susp) 30 ml PO Q6H PRN PRN Reason: Heartburn/Nausea Last Admin: 03/26/21 20:26 Dose: 30 ml Documented by: Aripiprazole (Aripiprazole 10 Mg Tablet) 10 mg PO DAILY [facility] Last Admin: 04/04/21 09:08 Dose: 10 mg Documented by: Clonazepam (Clonazepam 0.5 Mg Tablet) 0.5 mg PO BID [facility] Last Admin: 04/04/21 09:08 Dose: 0.5 mg Documented by: Hydroxyzine HCl (Hydroxyzine Hcl 50 Mg Tablet) 50 mg PO BEDTIME [facility] Last Admin: 04/03/21 19:47 Dose: 50 mg Documented by: Hydroxyzine HCl (Hydroxyzine Hcl 25 Mg Tablet) 25 mg PO Q6H PRN PRN Reason: Anxiety Last Admin: 04/02/21 11:07 Dose: 25 mg Documented by: Lamotrigine (Lamotrigine 25 Mg Tablet) 50 mg PO DAILY [facility] Last Admin: 04/04/21 09:08 Dose: 50 mg Documented by: Lorazepam (Lorazepam 1 Mg Tablet) 1 mg PO Q4H PRN PRN Reason: agitation Last Admin: 04/03/21 23:45 Dose: 1 mg Documented by: Magnesium Hydroxide (Milk Of Magnesia 30 Ml Oral.Susp) 30 ml PO DAILY PRN PRN Reason: Constipation Mirtazapine (Mirtazapine 15 Mg Tablet) 15 mg PO BEDTIME [facility] Last Admin: 04/03/21 19:47 Dose: 15 mg Documented by: Ondansetron HCl (Ondansetron Odt 8 Mg Tab.Rapdis) 8 mg TRANSLINGU BEDTIME [facility] Last Admin: 04/03/21 19:48 Dose: 8 mg Documented by: Ondansetron HCl (Ondansetron Odt 4 Mg Tab.Rapdis) 4 mg TRANSLINGU DAILY PRN PRN Reason: Nausea Last Admin: 04/03/21 08:07 Dose: 4 mg Documented by: Prazosin HCl (Prazosin Hcl 1 Mg Capsule) 4 mg PO BEDTIME [facility]; Protocol Last Admin: 04/03/21 21:46 Dose: Not Given Documented by: Trazodone HCl (Trazodone Hcl 100 Mg Tablet) 100 mg PO BEDTIME [facility] Last Admin: 04/03/21 21:44 Dose: 100 mg Documented by: Allergies Allergies Allergy/AdvReac Type Severity Reaction Status Date / Time metoclopramide [From Reglan] Allergy Muscle Verified 01/08/21 20:46 cramps haloperidol [From Haldol] AdvReac Severe Dystonia Verified 01/08/21 20:46 sucralfate [From Carafate] AdvReac Severe vomiting Verified 01/08/21 20:46 band-aids AdvReac Intermediate skin Uncoded 02/04/21 17:52 irritation Assessment & Plan Assessment & Plan (1) PTSD (post-traumatic stress disorder): Status: Acute Code(s): F43.10 - Post-traumatic stress disorder, unspecified (2) Schizoaffective disorder, bipolar type: Status: Acute Code(s): F25.0 - Schizoaffective disorder, bipolar type (3) IBS (irritable bowel syndrome): Status: Acute Code(s): K58.9 - Irritable bowel syndrome without diarrhea Plan 25 yo female, history of PTSD, Schizoaffective Disorder, presents from respite with increasing pseudoseizure activity s/p COVID, needing to quarantine and not having many opportunities to process feelings due to quarantine. Pt discharged from respite as team noted increase in pseudoseizure activity and is wanting this symptom addressed. Discussed with pt and she agrees that the best way to address the symptom is ongoing psychotherapy, skill building with DBT focus, and participating in activites which increase her self-esteem and individuation. Pt is scheduled for a provider meeting next week so team may review housing options with her as [facility] Med regime reviewed and adjustments agreed to. Plan: Review of diagnostics Increase Abilify to 10 mg daily. Will increase maintena when due @ 04/10. Ensure with meals TID to assist with GI sx mgt. Transition to [facility] intermediate hopefully in a brief time 03/27: no med changes, has flu with endo scheduled by primary provider for pituitary adenoma, utilizing zophran for nausea 03/28: increase vistaril to 25 mg Q6H PRN for anxiety, schedule trazodone 50 mg QHS for sleep due to reported benefit. No pseudo seizure today. Pt eating okay, no vomiting. 03/31/21: Continue current plan of care. 04/02/21: Review of grounding and possible medicine assist with SIBS- discussion of [place], Risperdal, Trileptal, Lamictal titration and decreasing Lorazepam 04/03/21: Continue current plan of care. 04/04/21: Increase Lamictal to 75 mg daily Risperdal 0.5 mg bid prn-grounding support to decrease SIBS I spent 25 minutes with the patient and/or on the patient floor today, greater than?50% of which was spent counseling/coordinating care. Patient educated on: medication risk/benefits and therapeutic strategies Informed Consent: understands and further education needed Reason for contiued inpatient stay Substantial Risk for: harm to self, inability to function and rapid decompensation
[2021-04-04 18:00] VITALS: BP 131/81; PULSE 106; RESP 16; TEMP 36.6; O2SAT 99
[2021-04-04] MEDS: Ondansetron ODT 8 MG TAB.RAPDIS TRANSLINGU (20:50)
[2021-04-04] MEDS: hydrOXYzine HCL 50 MG TABLET PO (21:18)
[2021-04-04] MEDS: traZODone HCL 100 MG TABLET PO (21:19)
[2021-04-04] MEDS: Prazosin HCL 1 MG CAPSULE 4 MG PO (21:19)
[2021-04-04] MEDS: Mirtazapine 15 MG TABLET PO (21:19)
[2021-04-04] MEDS: risperiDONE 0.5 MG TABLET PO (21:19)
[2021-04-05 06:00] VITALS: BP 112/62; PULSE 88; RESP 16; TEMP 36.6; O2SAT 98
[2021-04-05] MEDS: Ondansetron ODT 4 MG TAB.RAPDIS TRANSLINGU (08:39)
[2021-04-05 09:00] VITALS: BP 129/75; PULSE 116; TEMP 36.6
[2021-04-05] MEDS: ARIPiprazole 10 MG TABLET PO (09:16)
[2021-04-05] MEDS: clonazePAM 0.5 MG TABLET PO ×2 (09:16→22:48)
[2021-04-05] MEDS: lamoTRIgine 25 MG TABLET 75 MG PO (09:16)
--- NOTE | 2021-04-05 09:22 | HO.PSYCHPN ---
Subjective Subjective Date of Service: 04/05/21 Reason For Visit: conversion disorder Interim History: Pt reports adverse GI response to Prazosin. As a result we will discontinue. Pt trialing Risperdal prn for assist with grounding-reports poor sleep, however, reports that the milieu has been loud, noisy at night. Discussed anxiety about H/team meeting this week-hoping for an appropriate placement. Discussed wanting her own apartment-she has trialed this a few times in [place] with success and hopes to try it again-looking for more freedom, independence and ability to come and go. This led to a discussion of cannabis use. Outlined risks and possiblity that she is not achieving the response as she believes-immediate response is positive however what is the retirement response and effect upon mood. Discussion of use, supply, risks. Medication Compliance: Yes Side effects from medications: Yes (prazosin caused abdominal pain-we will discontinue) Attending Groups: Yes Review of Systems Acute medical concerns: No Medical Review of Systems: unchanged Review of Systems Psychiatric: Reports abnormal sleep pattern, Reports anxiety, Reports depression, Reports difficulty concentrating, Reports hopelessness, Reports anhedonia and Reports other (SIBS-scratching herself with a staple) Mental Status Exam Mental Status Exam Patient Appearance: Appropriate Patient Orientation: Person, Place and Time Level of Consciousness: Alert Patient Behavior: Appropriate, Talkative, Cooperative and Good Eye Contact Mood Description: Flat Affect Description: Flat Patient Cognition Impaired: No Ability to Follow Directions: Good Speech Pattern: Spontaneous Speech Memory Description: Intact Hallucinations: None Delusions: Not Present Perceptual Disturbances: Depersonalization and Derealization Thought Process: Distracted and Rumination Thought Content: positive for Goal Oriented, positive for Perseveration and positive for Suicidal Ideation (denies) Depressive Symptoms: Increased Anxiety, Difficulty Sleeping and Thoughts of /Suicide (denies) Judgement: Fair Diagnostics Vital Signs (24Hr): Vital Signs - 24 hr 04/04/21 18:00 04/05/21 06:00 Temperature 97.9 F 98 F Pulse Rate 106 H 88 Respiratory Rate 16 16 Blood Pressure 131/81 112/62 Pulse Oximetry 99 98 BMI result Body Mass Index 25.8 Labs Results: 03/24/21 16:57 03/24/21 16:57 Medications Medications Current Medications Al Hydroxide/Mg Hydroxide (Magnesium Hydrox/Alum Hydrox 30 Ml Oral.Susp) 30 ml PO Q6H PRN PRN Reason: Heartburn/Nausea Last Admin: 03/26/21 20:26 Dose: 30 ml Documented by: Aripiprazole (Aripiprazole 10 Mg Tablet) 10 mg PO DAILY [facility] Last Admin: 04/05/21 09:16 Dose: 10 mg Documented by: Clonazepam (Clonazepam 0.5 Mg Tablet) 0.5 mg PO BID [facility] Last Admin: 04/05/21 09:16 Dose: 0.5 mg Documented by: Hydroxyzine HCl (Hydroxyzine Hcl 50 Mg Tablet) 50 mg PO BEDTIME [facility] Last Admin: 04/04/21 21:18 Dose: 50 mg Documented by: Hydroxyzine HCl (Hydroxyzine Hcl 25 Mg Tablet) 25 mg PO Q6H PRN PRN Reason: Anxiety Last Admin: 04/02/21 11:07 Dose: 25 mg Documented by: Lamotrigine (Lamotrigine 25 Mg Tablet) 75 mg PO DAILY [facility] Last Admin: 04/05/21 09:16 Dose: 75 mg Documented by: Lorazepam (Lorazepam 1 Mg Tablet) 1 mg PO Q4H PRN PRN Reason: agitation Last Admin: 04/03/21 23:45 Dose: 1 mg Documented by: Magnesium Hydroxide (Milk Of Magnesia 30 Ml Oral.Susp) 30 ml PO DAILY PRN PRN Reason: Constipation Mirtazapine (Mirtazapine 15 Mg Tablet) 15 mg PO BEDTIME [facility] Last Admin: 04/04/21 21:19 Dose: 15 mg Documented by: Ondansetron HCl (Ondansetron Odt 8 Mg Tab.Rapdis) 8 mg TRANSLINGU BEDTIME [facility] Last Admin: 04/04/21 20:50 Dose: 8 mg Documented by: Ondansetron HCl (Ondansetron Odt 4 Mg Tab.Rapdis) 4 mg TRANSLINGU DAILY PRN PRN Reason: Nausea Last Admin: 04/05/21 08:39 Dose: 4 mg Documented by: Prazosin HCl (Prazosin Hcl 1 Mg Capsule) 4 mg PO BEDTIME [facility]; Protocol Last Admin: 04/04/21 21:19 Dose: 4 mg Documented by: Risperidone (Risperidone 0.5 Mg Tablet) 0.5 mg PO BID PRN PRN Reason: grounding Last Admin: 04/04/21 21:19 Dose: 0.5 mg Documented by: Trazodone HCl (Trazodone Hcl 100 Mg Tablet) 100 mg PO BEDTIME [facility] Last Admin: 04/04/21 21:19 Dose: 100 mg Documented by: Allergies Allergies Allergy/AdvReac Type Severity Reaction Status Date / Time metoclopramide [From Reglan] Allergy Muscle Verified 01/08/21 20:46 cramps haloperidol [From Haldol] AdvReac Severe Dystonia Verified 01/08/21 20:46 sucralfate [From Carafate] AdvReac Severe vomiting Verified 01/08/21 20:46 band-aids AdvReac Intermediate skin Uncoded 02/04/21 17:52 irritation Assessment & Plan Assessment & Plan (1) PTSD (post-traumatic stress disorder): Status: Acute Code(s): F43.10 - Post-traumatic stress disorder, unspecified (2) Schizoaffective disorder, bipolar type: Status: Acute Code(s): F25.0 - Schizoaffective disorder, bipolar type (3) IBS (irritable bowel syndrome): Status: Acute Code(s): K58.9 - Irritable bowel syndrome without diarrhea Plan 25 yo female, history of PTSD, Schizoaffective Disorder, presents from respite with increasing pseudoseizure activity s/p COVID, needing to quarantine and not having many opportunities to process feelings due to quarantine. Pt discharged from respite as team noted increase in pseudoseizure activity and is wanting this symptom addressed. Discussed with pt and she agrees that the best way to address the symptom is ongoing psychotherapy, skill building with DBT focus, and participating in activites which increase her self-esteem and individuation. Pt is scheduled for a provider meeting next week so team may review housing options with her as [place]. Med regime reviewed and adjustments agreed to. Plan: Review of diagnostics Increase Abilify to 10 mg daily. Will increase maintena when due @ 04/10. Ensure with meals TID to assist with GI sx mgt. [facility] to [facility] [place] 03/27: no med changes, has flu with endo scheduled by primary provider for pituitary adenoma, utilizing zophran for nausea 03/28: increase vistaril to 25 mg Q6H PRN for anxiety, schedule trazodone 50 mg QHS for sleep due to reported benefit. No pseudo seizure today. Pt eating okay, no vomiting. 03/31/21: Continue current plan of care. 04/02/21: Review of grounding and possible medicine assist with SIBS- discussion of [place], Risperdal, Trileptal, Lamictal titration and decreasing Lorazepam 04/03/21: Continue current plan of care. 04/04/21: Increase Lamictal to 75 mg daily Risperdal 0.5 mg bid prn-grounding support to decrease SIBS 04/05/21: Discontinue Prazosin-Delaney experienced abdominal pain with capsule dosing. I spent 25 minutes with the patient and/or on the patient floor today, greater than?50% of which was spent counseling/coordinating care. Patient educated on: medication risk/benefits, substance abuse and therapeutic strategies Informed Consent: understands and further education needed Reason for contiued inpatient stay Substantial Risk for: harm to self, inability to function and rapid decompensation
[2021-04-05] MEDS: Magnesium Hydrox/Alum Hydrox 30 ML ORAL.SUSP PO (11:29)
[2021-04-05 20:30] VITALS: BP 125/65; PULSE 121; TEMP 37.2
[2021-04-05] MEDS: Ondansetron ODT 8 MG TAB.RAPDIS TRANSLINGU (21:55)
[2021-04-05] MEDS: hydrOXYzine HCL 50 MG TABLET PO (22:48)
[2021-04-05] MEDS: Mirtazapine 15 MG TABLET PO (22:48)
[2021-04-05] MEDS: traZODone HCL 100 MG TABLET PO (22:48)
[2021-04-06 06:00] VITALS: BP 118/79; PULSE 102; RESP 18; TEMP 36.6; O2SAT 96
[2021-04-06 09:00] VITALS: BP 131/82; PULSE 120; TEMP 36.8
[2021-04-06] MEDS: clonazePAM 0.5 MG TABLET PO ×2 (09:13→21:27)
[2021-04-06] MEDS: risperiDONE 0.5 MG TABLET PO ×2 (09:13→18:37)
[2021-04-06] MEDS: lamoTRIgine 25 MG TABLET 75 MG PO (09:13)
[2021-04-06] MEDS: ARIPiprazole 10 MG TABLET PO (09:13)
[2021-04-06] MEDS: LORazepam 1 MG TABLET PO (10:47)
--- NOTE | 2021-04-06 15:41 | P.PNPSI_ITS ---
Subjective Subjective Date of Service: 04/06/21 Reason For Visit: conversion disorder Subjective Notes: Conditional Voluntary Interim History: Delaney reports a difficult night with room-mates agitation, smoking, and refusal of treatment. This experience coordinates with our discussion of 04/05 regarding adverse responses to cannabis as room-mate became more agitated after vaping. Delaney discussed her observations and reflected upon our previous discussion. She reports abdominal discomfort has decreased with cessation of Prazosin. Discussed referral to [facility]. Delaney declines at this time citing rationale being too long, too far away and not interested in their care plan. Agrees to review application/brochure and consider for the future. Called back to by nursing team after Delaney met with [facility] and they discussed diagnoses-primarily schizoaffective disorder. Delaney expressed significant anger. I don't have schizophrenia . Affirmed, discussed that this was a previous diagnoses from her out pt team with [facility], and [facility] initial diagnosis and we had PTSD as diagnosis #1 now and Schizoaffective Disorder as diagnosis #2. Discussed that as patients have progress and healing with PTSD, there is often symptom presentation of various symptoms of different psychiatric illness and OP team possibly did not have the time to begin to become aware of her history, responses, and course of care. Discussed keeping the diagnoses in place to assist with future treatment and course of care, symptom and medication management, and clearer knowledge of history and response, to improve treatment accuracy. She asks that schizoaffective disorder be removed from her chart- will respond at this time-education provided. Medication Compliance: Yes Side effects from medications: No Attending Groups: Yes Review of Systems Acute medical concerns: Yes Medical Review of Systems: unchanged Review of Systems Reports behavioral changes Psychiatric: Reports abnormal sleep pattern, Reports anxiety, Reports behavioral changes, Reports depression, Reports difficulty concentrating, Reports irritability, Reports anhedonia, Reports mood swings and Reports suicidal ideation (denies) Mental Status Exam Mental Status Exam Patient Appearance: Appropriate Patient Orientation: Person, Place, Time and Situation Level of Consciousness: Alert Patient Behavior: Appropriate, Talkative and Good Eye Contact Mood Description: Appropriate and Angry Affect Description: Constricted Patient Cognition Impaired: No Ability to Follow Directions: Good Speech Pattern: Spontaneous Speech Memory Description: Intact Hallucinations: None Perceptual Disturbances: Depersonalization and Derealization Thought Process: Intact Thought Content: positive for Intact Depressive Symptoms: Increased Anxiety, Insomnia, Increased Irritability and Dif ficulty Sleeping Judgement: Good Diagnostics Vital Signs (24Hr): Vital Signs - 24 hr 04/05/21 20:30 04/06/21 06:00 04/06/21 09:00 Temperature 98.9 F 97.9 F 98.3 F Pulse Rate 121 H 102 H 120 H Respiratory Rate 18 Blood Pressure 125/65 118/79 131/82 Pulse Oximetry 96 BMI result Body Mass Index 25.8 Labs Results: 03/24/21 16:57 03/24/21 16:57 Medications Medications Current Medications Al Hydroxide/Mg Hydroxide (Magnesium Hydrox/Alum Hydrox 30 Ml Oral.Susp) 30 ml PO Q6H PRN PRN Reason: Heartburn/Nausea Last Admin: 04/05/21 11:29 Dose: 30 ml Documented by: Aripiprazole (Aripiprazole 10 Mg Tablet) 10 mg PO DAILY [facility] Last Admin: 04/06/21 09:13 Dose: 10 mg Documented by: Clonazepam (Clonazepam 0.5 Mg Tablet) 0.5 mg PO BID [facility] Last Admin: 04/06/21 09:13 Dose: 0.5 mg Documented by: Hydroxyzine HCl (Hydroxyzine Hcl 50 Mg Tablet) 50 mg PO BEDTIME [facility] Last Admin: 04/05/21 22:48 Dose: 50 mg Documented by: Hydroxyzine HCl (Hydroxyzine Hcl 25 Mg Tablet) 25 mg PO Q6H PRN PRN Reason: Anxiety Last Admin: 04/02/21 11:07 Dose: 25 mg Documented by: Lamotrigine (Lamotrigine 25 Mg Tablet) 75 mg PO DAILY [facility] Last Admin: 04/06/21 09:13 Dose: 75 mg Documented by: Lorazepam (Lorazepam 1 Mg Tablet) 1 mg PO Q4H PRN PRN Reason: agitation Last Admin: 04/06/21 10:47 Dose: 1 mg Documented by: Magnesium Hydroxide (Milk Of Magnesia 30 Ml Oral.Susp) 30 ml PO DAILY PRN PRN Reason: Constipation Mirtazapine (Mirtazapine 15 Mg Tablet) 15 mg PO BEDTIME [facility] Last Admin: 04/05/21 22:48 Dose: 15 mg Documented by: Ondansetron HCl (Ondansetron Odt 8 Mg Tab.Rapdis) 8 mg TRANSLINGU BEDTIME [facility] Last Admin: 04/05/21 21:55 Dose: 8 mg Documented by: Ondansetron HCl (Ondansetron Odt 4 Mg Tab.Rapdis) 4 mg TRANSLINGU DAILY PRN PRN Reason: Nausea Last Admin: 04/05/21 08:39 Dose: 4 mg Documented by: Risperidone (Risperidone 0.5 Mg Tablet) 0.5 mg PO BID PRN PRN Reason: grounding Last Admin: 04/06/21 09:13 Dose: 0.5 mg Documented by: Trazodone HCl (Trazodone Hcl 100 Mg Tablet) 100 mg PO BEDTIME [facility] Last Admin: 04/05/21 22:48 Dose: 100 mg Documented by: Allergies Allergies Allergy/AdvReac Type Severity Reaction Status Date / Time metoclopramide [From Reglan] Allergy Muscle Verified 01/08/21 20:46 cramps haloperidol [From Haldol] AdvReac Severe Dystonia Verified 01/08/21 20:46 prazosin AdvReac Severe Abdominal Verified 04/05/21 10:55 Pain sucralfate [From Carafate] AdvReac Severe vomiting Verified 01/08/21 20:46 band-aids AdvReac Intermediate skin Uncoded 02/04/21 17:52 irritation Assessment & Plan Assessment & Plan (1) PTSD (post-traumatic stress disorder): Status: Acute Code(s): F43.10 - Post-traumatic stress disorder, unspecified (2) IBS (irritable bowel syndrome): Status: Acute Code(s): K58.9 - Irritable bowel syndrome without diarrhea (3) Pituitary neoplasm: Status: Acute Code(s): D49.7 - Neoplasm of unspecified behavior of endocrine glands and other parts of nervous system (4) Psychogenic nonepileptic seizure: Status: Acute Code(s): F44.5 - Conversion disorder with seizures or convulsions Plan 25 yo female, history of PTSD, hx of Schizoaffective Disorder, presents from respite with increasing pseudoseizure activity s/p COVID, needing to quarantine and not having many opportunities to process feelings due to quarantine. Pt discharged from respite as team noted increase in pseudoseizure activity and is wanting this symptom addressed. Discussed with pt and she agrees that the best way to address the symptom is ongoing psychotherapy, skill building with DBT focus, and participating in activites which increase her self-esteem and individuation. Pt is scheduled for a provider meeting next week so team may review housing options with her as she was planning to move to a residential from respite. Med regime reviewed and adjustments agreed to. Plan: Review of diagnostics Increase Abilify to 10 mg daily. Will increase maintena when due @ 04/10. Ensure with meals TID to assist with GI sx mgt. Transition to [facility] residential hopefully in a brief time 03/27: no med changes, has flu with endo scheduled by primary provider for pituitary adenoma, utilizing zophran for nausea 03/28: increase vistaril to 25 mg Q6H PRN for anxiety, schedule trazodone 50 mg QHS for sleep due to reported benefit. No pseudo seizure today. Pt eating okay, no vomiting. 03/31/21: Continue current plan of care. 04/02/21: Review of grounding and possible medicine assist with SIBS- discussion of [place], Risperdal, Trileptal, Lamictal titration and decreasing Lorazepam 04/03/21: Continue current plan of care. 04/04/21: Increase Lamictal to 75 mg daily Risperdal 0.5 mg bid prn-grounding support to decrease SIBS 04/05/21: Discontinue Prazosin-Delaney experienced abdominal pain with capsule dosing. 04/06/21: Evidence of self-advocay. Support pt in her healing. Discharge to respite tentatively this week. I spent 60 minutes with the patient and/or on the patient floor today, greater than?50% of which was spent counseling/coordinating care. Patient educated on: diagnosis, medication risk/benefits and therapeutic strategies Informed Consent: understands and further education needed Reason for contiued inpatient stay Substantial Risk for: harm to self and rapid decompensation
[2021-04-06] MEDS: hydrOXYzine HCL 25 MG TABLET PO (18:37)
[2021-04-06 21:10] VITALS: BP 132/84; PULSE 110; RESP 18; TEMP 36.7; O2SAT 98
[2021-04-06] MEDS: Ondansetron ODT 8 MG TAB.RAPDIS TRANSLINGU (21:25)
[2021-04-06] MEDS: traZODone HCL 100 MG TABLET PO (21:27)
[2021-04-06] MEDS: hydrOXYzine HCL 50 MG TABLET PO (21:27)
[2021-04-06] MEDS: Mirtazapine 15 MG TABLET PO (21:27)
[2021-04-07] MEDS: lamoTRIgine 25 MG TABLET 75 MG PO (09:02)
[2021-04-07] MEDS: clonazePAM 0.5 MG TABLET PO ×2 (09:03→21:57)
[2021-04-07] MEDS: ARIPiprazole 10 MG TABLET PO (09:03)
--- NOTE | 2021-04-07 17:42 | P.PNPSI_ITS ---
Subjective Subjective Date of Service: 04/07/21 Reason For Visit: conversion disorder Subjective Notes: Conditional Voluntary Healthcare Proxy: No Guardianship: No Medical Problems Affecting Mental Status: No Interim History: Given handouts on [facility] and [facility] having a PTSD indicator. No further questions for tw regarding diagnostic complexity. Anxious about 04/16 appt with [facility] and fears she will be unable to attend. Reports she slept last night. Medication Compliance: Yes Side effects from medications: No Attending Groups: Yes Review of Systems Acute medical concerns: No Medical Review of Systems: unchanged Review of Systems Psychiatric: Reports anxiety, Reports depression, Reports difficulty concentrating and Reports suicidal ideation (thoughts without plan, intent) Mental Status Exam Mental Status Exam Patient Appearance: Appropriate Patient Orientation: Person, Place, Time and Situation Level of Consciousness: Alert Patient Behavior: Talkative, Cooperative and Good Eye Contact Mood Description: Anxious and Apprehensive Affect Description: Flat Patient Cognition Impaired: No Ability to Follow Directions: Good Speech Pattern: Spontaneous Speech Memory Description: Intact Hallucinations: None Delusions: Not Present Perceptual Disturbances: Depersonalization and Derealization Thought Process: Rumination and Goal Oriented Thought Content: positive for Goal Oriented Depressive Symptoms: Increased Anxiety, Increased Irritability and Thoughts of /Suicide (passive SI without plan or intent) Abnormal Motor Activity Signs and Symptoms: Restlessness Judgement: Good Diagnostics Vital Signs (24Hr): Vital Signs - 24 hr 04/06/21 21:10 Temperature 98.0 F Pulse Rate 110 H Respiratory Rate 18 Blood Pressure 132/84 Pulse Oximetry 98 BMI result Body Mass Index 25.8 Labs Results: 03/24/21 16:57 03/24/21 16:57 Medications Medications Current Medications Al Hydroxide/Mg Hydroxide (Magnesium Hydrox/Alum Hydrox 30 Ml Oral.Susp) 30 ml PO Q6H PRN PRN Reason: Heartburn/Nausea Last Admin: 04/05/21 11:29 Dose: 30 ml Documented by: Aripiprazole (Aripiprazole 10 Mg Tablet) 10 mg PO DAILY [facility] Last Admin: 04/07/21 09:03 Dose: 10 mg Documented by: Clonazepam (Clonazepam 0.5 Mg Tablet) 0.5 mg PO BID [facility] Last Admin: 04/07/21 09:03 Dose: 0.5 mg Documented by: Hydroxyzine HCl (Hydroxyzine Hcl 50 Mg Tablet) 50 mg PO BEDTIME [facility] Last Admin: 04/06/21 21:27 Dose: 50 mg Documented by: Hydroxyzine HCl (Hydroxyzine Hcl 25 Mg Tablet) 25 mg PO Q6H PRN PRN Reason: Anxiety Last Admin: 04/06/21 18:37 Dose: 25 mg Documented by: Lamotrigine (Lamotrigine 25 Mg Tablet) 75 mg PO DAILY [facility] Last Admin: 04/07/21 09:02 Dose: 75 mg Documented by: Lorazepam (Lorazepam 1 Mg Tablet) 1 mg PO Q4H PRN PRN Reason: agitation Last Admin: 04/06/21 10:47 Dose: 1 mg Documented by: Magnesium Hydroxide (Milk Of Magnesia 30 Ml Oral.Susp) 30 ml PO DAILY PRN PRN Reason: Constipation Mirtazapine (Mirtazapine 15 Mg Tablet) 15 mg PO BEDTIME [facility] Last Admin: 04/06/21 21:27 Dose: 15 mg Documented by: Ondansetron HCl (Ondansetron Odt 8 Mg Tab.Rapdis) 8 mg TRANSLINGU BEDTIME [facility] Last Admin: 04/06/21 21:25 Dose: 8 mg Documented by: Ondansetron HCl (Ondansetron Odt 4 Mg Tab.Rapdis) 4 mg TRANSLINGU DAILY PRN PRN Reason: Nausea Last Admin: 04/05/21 08:39 Dose: 4 mg Documented by: Risperidone (Risperidone 0.5 Mg Tablet) 0.5 mg PO BID PRN PRN Reason: grounding Last Admin: 04/06/21 18:37 Dose: 0.5 mg Documented by: Trazodone HCl (Trazodone Hcl 100 Mg Tablet) 100 mg PO BEDTIME [facility] Last Admin: 04/06/21 21:27 Dose: 100 mg Documented by: Allergies Allergies Allergy/AdvReac Type Severity Reaction Status Date / Time metoclopramide [From Reglan] Allergy Muscle Verified 01/08/21 20:46 cramps haloperidol [From Haldol] AdvReac Severe Dystonia Verified 01/08/21 20:46 prazosin AdvReac Severe Abdominal Verified 04/05/21 10:55 Pain sucralfate [From Carafate] AdvReac Severe vomiting Verified 01/08/21 20:46 band-aids AdvReac Intermediate skin Uncoded 02/04/21 17:52 irritation Assessment & Plan Assessment & Plan (1) PTSD (post-traumatic stress disorder): Status: Acute Code(s): F43.10 - Post-traumatic stress disorder, unspecified (2) IBS (irritable bowel syndrome): Status: Acute Code(s): K58.9 - Irritable bowel syndrome without diarrhea (3) Pituitary neoplasm: Status: Acute Code(s): D49.7 - Neoplasm of unspecified behavior of endocrine glands and other parts of nervous system (4) Psychogenic nonepileptic seizure: Status: Acute Code(s): F44.5 - Conversion disorder with seizures or convulsions Plan 25 yo female, history of PTSD, hx of Schizoaffective Disorder, presents from respite with increasing pseudoseizure activity s/p COVID, needing to quarantine and not having many opportunities to process feelings due to quarantine. Pt discharged from respite as team noted increase in pseudoseizure activity and is wanting this symptom addressed. Discussed with pt and she agrees that the best way to address the symptom is ongoing psychotherapy, skill building with DBT focus, and participating in activites which increase her self-esteem and individuation. Pt is scheduled for a provider meeting next week so team may review housing options with her as [facility] Med regime reviewed and adjustments agreed to. Plan: Review of diagnostics Increase Abilify to 10 mg daily. Will increase maintena when due @ 04/10. Ensure with meals TID to assist with GI sx mgt. Transition to [facility] jail hopefully in a brief time 03/27: no med changes, has flu with endo scheduled by primary provider for pituitary adenoma, utilizing zophran for nausea 03/28: increase vistaril to 25 mg Q6H PRN for anxiety, schedule trazodone 50 mg QHS for sleep due to reported benefit. No pseudo seizure today. Pt eating okay, no vomiting. 03/31/21: Continue current plan of care. 04/02/21: Review of grounding and possible medicine assist with SIBS- discussion of [place], Risperdal, Trileptal, Lamictal titration and decreasing Lorazepam 04/03/21: Continue current plan of care. 04/04/21: Increase Lamictal to 75 mg daily Risperdal 0.5 mg bid prn-grounding support to decrease SIBS 04/05/21: Discontinue Prazosin-Delaney experienced abdominal pain with capsule dosing. 04/06/21: Evidence of self-advocay. Support pt in her healing. Discharge to respite tentatively this week. 04/07/21: Continue current plan. Abilify Maintena 400 mg IM-due 04/10/21. I spent 15 minutes with the patient and/or on the patient floor today, greater than?50% of which was spent counseling/coordinating care. Patient educated on: diagnosis, medication risk/benefits and therapeutic strategies Informed Consent: understands Reason for contiued inpatient stay Substantial Risk for: harm to self, inability to function and rapid decompensation
[2021-04-07 20:57] VITALS: BP 111/73; PULSE 114; RESP 18; TEMP 36.8
[2021-04-07] MEDS: Ondansetron ODT 8 MG TAB.RAPDIS TRANSLINGU (21:56)
[2021-04-07] MEDS: traZODone HCL 100 MG TABLET PO (21:57)
[2021-04-07] MEDS: risperiDONE 0.5 MG TABLET PO (21:57)
[2021-04-07] MEDS: hydrOXYzine HCL 50 MG TABLET PO (21:57)
[2021-04-07] MEDS: Mirtazapine 15 MG TABLET PO (21:57)
[2021-04-08 06:00] VITALS: BP 132/62; PULSE 90; RESP 18; TEMP 36.8; O2SAT 100
[2021-04-08] MEDS: ARIPiprazole 10 MG TABLET PO (09:14)
[2021-04-08] MEDS: lamoTRIgine 25 MG TABLET 75 MG PO (09:14)
[2021-04-08] MEDS: clonazePAM 0.5 MG TABLET PO ×2 (09:14→19:36)
--- NOTE | 2021-04-08 18:54 | HO.PSYCHPN ---
Subjective Subjective Date of Service: 04/08/21 Reason For Visit: conversion disorder Subjective Notes: Conditional Voluntary Interim History: Completed [facility] and information scanning for [facility] appt on 04/16. Delaney preparing for discharge to respite on 04/09. Abilify Maintena ordered from [facility]. Team will provide the injection for pt if it arrives prior to discharge. If it does not arrive, [facility] will deliver to respite on 04/10/21. Review of medications-discussed Remeron increase on discharge to 22.5 mg and prn Risperdal increase on discharge as well. Denies active SI. Working on SIB and transitioning to stronger coping skills. Medication Compliance: Yes Side effects from medications: No Attending Groups: Yes Review of Systems Acute medical concerns: No Medical Review of Systems: unchanged Review of Systems Reports behavioral changes Psychiatric: Reports abnormal sleep pattern, Reports anxiety, Reports behavioral changes, Reports depression, Reports hopelessness, Reports irritability, Reports anhedonia and Reports suicidal ideation (denies active SI plan or intent, SIB mgt she is working on.) Mental Status Exam Mental Status Exam Patient Appearance: Appropriate Patient Orientation: Person, Place, Time and Situation Level of Consciousness: Alert Patient Behavior: Talkative, Cooperative and Good Eye Contact Mood Description: Anxious and Apprehensive Affect Description: Flat Patient Cognition Impaired: No Ability to Follow Directions: Good Speech Pattern: Spontaneous Speech Memory Description: Intact Hallucinations: None Delusions: Not Present Perceptual Disturbances: Depersonalization and Derealization Thought Process: Rumination and Goal Oriented Thought Content: positive for Goal Oriented Depressive Symptoms: Increased Anxiety, Increased Irritability and Thoughts of /Suicide (Denies-working on SIB management) Abnormal Motor Activity Signs and Symptoms: Restlessness Judgement: Good Diagnostics Vital Signs (24Hr): Vital Signs - 24 hr 04/07/21 20:57 04/08/21 06:00 Temperature 98.3 F 98.2 F Pulse Rate 114 H 90 Respiratory Rate 18 18 Blood Pressure 111/73 132/62 Pulse Oximetry 100 BMI result Body Mass Index 25.8 Labs Results: 03/24/21 16:57 03/24/21 16:57 Medications Medications Current Medications Al Hydroxide/Mg Hydroxide (Magnesium Hydrox/Alum Hydrox 30 Ml Oral.Susp) 30 ml PO Q6H PRN PRN Reason: Heartburn/Nausea Last Admin: 04/05/21 11:29 Dose: 30 ml Documented by: Aripiprazole (Aripiprazole 10 Mg Tablet) 10 mg PO DAILY [facility] Last Admin: 04/08/21 09:14 Dose: 10 mg Documented by: Clonazepam (Clonazepam 0.5 Mg Tablet) 0.5 mg PO BID [facility] Last Admin: 04/08/21 09:14 Dose: 0.5 mg Documented by: Hydroxyzine HCl (Hydroxyzine Hcl 50 Mg Tablet) 50 mg PO BEDTIME [facility] Last Admin: 04/07/21 21:57 Dose: 50 mg Documented by: Hydroxyzine HCl (Hydroxyzine Hcl 25 Mg Tablet) 25 mg PO Q6H PRN PRN Reason: Anxiety Last Admin: 04/06/21 18:37 Dose: 25 mg Documented by: Lamotrigine (Lamotrigine 25 Mg Tablet) 75 mg PO DAILY [facility] Last Admin: 04/08/21 09:14 Dose: 75 mg Documented by: Lorazepam (Lorazepam 1 Mg Tablet) 1 mg PO BID PRN PRN Reason: agitation Magnesium Hydroxide (Milk Of Magnesia 30 Ml Oral.Susp) 30 ml PO DAILY PRN PRN Reason: Constipation Mirtazapine (Mirtazapine 15 Mg Tablet) 15 mg PO BEDTIME [facility] Last Admin: 04/07/21 21:57 Dose: 15 mg Documented by: Ondansetron HCl (Ondansetron Odt 8 Mg Tab.Rapdis) 8 mg TRANSLINGU BEDTIME [facility] Last Admin: 04/07/21 21:56 Dose: 8 mg Documented by: Ondansetron HCl (Ondansetron Odt 4 Mg Tab.Rapdis) 4 mg TRANSLINGU DAILY PRN PRN Reason: Nausea Last Admin: 04/05/21 08:39 Dose: 4 mg Documented by: Risperidone (Risperidone 0.5 Mg Tablet) 0.5 mg PO BID PRN PRN Reason: grounding Last Admin: 04/07/21 21:57 Dose: 0.5 mg Documented by: Trazodone HCl (Trazodone Hcl 100 Mg Tablet) 100 mg PO BEDTIME [facility] Last Admin: 04/07/21 21:57 Dose: 100 mg Documented by: Allergies Allergies Allergy/AdvReac Type Severity Reaction Status Date / Time metoclopramide [From Reglan] Allergy Muscle Verified 01/08/21 20:46 cramps haloperidol [From Haldol] AdvReac Severe Dystonia Verified 01/08/21 20:46 prazosin AdvReac Severe Abdominal Verified 04/05/21 10:55 Pain sucralfate [From Carafate] AdvReac Severe vomiting Verified 01/08/21 20:46 band-aids AdvReac Intermediate skin Uncoded 02/04/21 17:52 irritation Assessment & Plan Assessment & Plan (1) PTSD (post-traumatic stress disorder): Status: Acute Code(s): F43.10 - Post-traumatic stress disorder, unspecified (2) IBS (irritable bowel syndrome): Status: Acute Code(s): K58.9 - Irritable bowel syndrome without diarrhea (3) Pituitary neoplasm: Status: Acute Code(s): D49.7 - Neoplasm of unspecified behavior of endocrine glands and other parts of nervous system (4) Psychogenic nonepileptic seizure: Status: Acute Code(s): F44.5 - Conversion disorder with seizures or convulsions Plan 25 yo female, history of PTSD, hx of Schizoaffective Disorder, presents from respite with increasing pseudoseizure activity s/p COVID, needing to quarantine and not having many opportunities to process feelings due to quarantine. Pt discharged from respite as team noted increase in pseudoseizure activity and is wanting this symptom addressed. Discussed with pt and she agrees that the best way to address the symptom is ongoing psychotherapy, skill building with DBT focus, and participating in activites which increase her self-esteem and individuation. Pt is scheduled for a provider meeting next week so team may review housing options with her as she was [facility] Med regime reviewed and adjustments agreed to. Plan: Review of diagnostics Increase Abilify to 10 mg daily. Will increase maintena when due @ 04/10. Ensure with meals TID to assist with GI sx mgt. Transition to [facility] long-term hopefully in a brief time 03/27: no med changes, has flu with endo scheduled by primary provider for pituitary adenoma, utilizing zophran for nausea 03/28: increase vistaril to 25 mg Q6H PRN for anxiety, schedule trazodone 50 mg QHS for sleep due to reported benefit. No pseudo seizure today. Pt eating okay, no vomiting. 03/31/21: Continue current plan of care. 04/02/21: Review of grounding and possible medicine assist with SIBS- discussion of [place], Risperdal, Trileptal, Lamictal titration and decreasing Lorazepam 04/03/21: Continue current plan of care. 04/04/21: Increase Lamictal to 75 mg daily Risperdal 0.5 mg bid prn-grounding support to decrease SIBS 04/05/21: Discontinue Prazosin-Delaney experienced abdominal pain with capsule dosing. 04/06/21: Evidence of self-advocay. Support pt in her healing. Discharge to respite tentatively this week. 04/07/21: Continue current plan. Abilify Maintena 400 mg IM-due 04/10/21. 04/08/21: Discharge 04/09/21. I spent 20 minutes with the patient and/or on the patient floor today, greater than?50% of which was spent counseling/coordinating care. Patient educated on: therapeutic strategies Informed Consent: understands and further education needed Reason for contiued inpatient stay Substantial Risk for: stable for discharge
[2021-04-08] MEDS: risperiDONE 0.5 MG TABLET PO (19:36)
[2021-04-08] MEDS: Mirtazapine 15 MG TABLET PO (19:36)
[2021-04-08] MEDS: hydrOXYzine HCL 50 MG TABLET PO (19:36)
[2021-04-08] MEDS: Ondansetron ODT 8 MG TAB.RAPDIS TRANSLINGU (19:36)
[2021-04-08 20:00] VITALS: BP 126/67; PULSE 102; RESP 19; TEMP 36.4; O2SAT 100
[2021-04-08] MEDS: traZODone HCL 100 MG TABLET PO (22:19)
[2021-04-09 06:00] VITALS: BP 128/70; PULSE 104; RESP 18; TEMP 36.6; O2SAT 100
[2021-04-09] MEDS: Ondansetron ODT 4 MG TAB.RAPDIS TRANSLINGU (07:58)
[2021-04-09] MEDS: clonazePAM 0.5 MG TABLET PO (07:58)
[2021-04-09 08:12] VITALS: BP 124/71; PULSE 93; RESP 14; TEMP 36.8; O2SAT 97
[2021-04-09] MEDS: ARIPiprazole 10 MG TABLET PO (08:29)
[2021-04-09] MEDS: lamoTRIgine 25 MG TABLET 75 MG PO (08:29)
--- NOTE | 2021-04-09 15:44 | PM.PSYDC ---
DS: Providers Provider Date of Service: 04/09/21 Date of admission: 03/25/21 18:24 Date of discharge: 04/09/21 Primary care physician: Sara Harding NP Admitting clinician: Joann White Attending physician on admission: Mat Christensen Attending physician on discharge: Mat Christensen Discharging clinician: Joann White DS: Diagnosis Discharge Diagnosis (1) PTSD (post-traumatic stress disorder): Status: Acute (2) IBS (irritable bowel syndrome): Status: Acute (3) Pituitary neoplasm: Status: Acute (4) Psychogenic nonepileptic seizure: Status: Acute DS: Medications Discharge Medications Home Medications: Previous Rx's Medication Instructions Recorded aripiprazole 10 mg tablet 10 mg PO DAILY #30 tab 04/08/21 aripiprazole 400 mg intramuscular 400 mg IM QMONTH #1 ea 04/08/21 suspension,extended release (Abilify Maintena) clonazepam 0.5 mg tablet 1 tab PO BID PRN #60 tab 04/08/21 hydroxyzine HCl 25 mg tablet 25 mg PO Q6H PRN #120 tab 04/08/21 hydroxyzine HCl 50 mg tablet 1 tab PO BEDTIME #30 tab 04/08/21 lamotrigine 25 mg tablet 75 mg PO DAILY #90 tab 04/08/21 lorazepam 1 mg tablet 1 mg PO DAILY PRN #30 tab 04/08/21 mirtazapine 15 mg tablet 1 tab PO BEDTIME #30 tab 04/08/21 ondansetron 4 mg disintegrating 4 mg TRANSLINGUAL DAILY PRN #30 tab 04/08/21 tablet ondansetron 8 mg disintegrating 8 mg TRANSLINGUAL BEDTIME #30 tab 04/08/21 tablet risperidone 0.5 mg tablet 0.5 mg PO BID PRN #60 tab 04/08/21 trazodone 100 mg tablet 100 mg PO BEDTIME #30 tab 04/08/21 mirtazapine 45 mg tablet 22.5 mg PO BEDTIME #15 tab 04/09/21 risperidone 1 mg tablet (Risperdal) 1 mg PO BID PRN #30 tab 04/09/21 Mental Status Exam Mental Status Exam Patient Appearance: Appropriate Patient Orientation: Person, Place, Time and Situation Level of Consciousness: Alert Patient Behavior: Talkative, Cooperative and Good Eye Contact Mood Description: Anxious and Apprehensive Affect Description: Flat Patient Cognition Impaired: No Ability to Follow Directions: Good Speech Pattern: Spontaneous Speech Memory Description: Intact Hallucinations: None Delusions: Not Present Perceptual Disturbances: Depersonalization and Derealization Thought Process: Rumination and Goal Oriented Thought Content: positive for Goal Oriented Depressive Symptoms: Increased Anxiety, Increased Irritability and Thoughts of /Suicide (Denies-working on SIB management) Abnormal Motor Activity Signs and Symptoms: Restlessness Judgement: Good DS: Summary Hospital Course Hospital Course: Admission to adult psychiatry to address symptoms of PTSD, hx of schizoaffective disorder, psychogenic seizures and conversion symptoms in recovery from PTSD. Care plan, medicine regime and out patient plan of care prior to admission were reviewed. Education was provided regarding management of symptoms, medications and side effects. Nursing and social service worked with Delaney on collateral contacts, care planning, education regarding management of symptoms, medications and discharge planning. PRITCHETT Abilify Maintena will increase to 400 mg IM monthly along with PO Abilify. Lamictal and Risperdal were titrated. Delaney plans to return to respite as [facility] has a pending residential placement for her. Time spent discussing smoking cessation with patient: 3 to 10 minutes Status at Discharge Functional status at discharge: independent ambulation Overall status at discharge: patient is back to baseline Time Spent with Patient Time attestation: Total time spent providing and/or coordinating discharge services: Time spent: Greater than 30 minutes Discharge Plan Discharge Patient Disposition: Xfer to Respite Facility Discharge Diagnosis: PTSD Psychogenic nonepileptic seizure Pituitary Neoplasm IBS History of diagnosis of schizoaffective disorder, bipolar type Referrals: [facility] [Other] - 04/16/21 11:00 am [facility] Placement: GIANNA Gayle [Other] - 1 Week [facility] Kosher Butcher: Blanka Sesay ([place] [facility]) [Other] - 1 Week (*Call as needed) [employer] Specialist: Barbie Simpson ([facility]) [Other] - 1 Week (*Call as needed) Sara Harding NP [Primary Care Provider] - 04/14/21 11:15 am (in office) Discharge Medications: New Abilify Maintena 400 mg suspension,extended rel recon 400 mg IM QMONTH Qty: 1 0RF Label Comments: next dose due is 05/08/2021 ondansetron 8 mg Tablet,Disintegrating 8 mg translingual BEDTIME Qty: 30 0RF trazodone 100 mg Tablet 100 mg PO BEDTIME Qty: 30 0RF ondansetron 4 mg Tablet,Disintegrating 4 mg translingual DAILY PRN (Reason: Nausea) Qty: 30 0RF risperidone 0.5 mg Tablet 0.5 mg PO BID PRN (Reason: grounding) Qty: 60 0RF lorazepam 1 mg tablet 1 mg PO DAILY PRN (Reason: anxiety) Qty: 30 0RF Continued clonazepam 0.5 mg tablet 1 tab PO BID PRN (Reason: Anxiety) Qty: 60 0RF Discontinued Abilify Maintena 300 mg suspension,extended rel recon 300 mg IM QMONTH Qty: 1 0RF Rx Instructions: Injection Due on 03/10/21. clonidine HCl 0.1 mg tablet 1 tab PO BID 0RF aripiprazole 5 mg tablet 1 tab PO DAILY 0RF hydroxyzine HCl 50 mg tablet 1 tab PO BEDTIME 0RF lamotrigine 25 mg tablet 2 tab PO DAILY 0RF mirtazapine 15 mg tablet 1 tab PO BEDTIME 0RF olanzapine 15 mg tablet,disintegrating 1 tab PO BEDTIME 0RF No Action aripiprazole 10 mg tablet 1 tab PO DAILY 0RF hydroxyzine HCl 50 mg tablet 1 tab PO BEDTIME 0RF lamotrigine 100 mg tablet 100 mg PO BEDTIME 0RF mirtazapine 45 mg tablet 22.5 mg PO BEDTIME 0RF hydroxyzine HCl 25 mg tablet 25 mg PO TID PRN (Reason: Anxiety) 0RF risperidone [Risperdal] 1 mg tablet 1 mg PO BID 0RF Discharge Orders: Discharge Order (Routine); Ordered 04/09/21 Ordered By: Joann White Diet: advance to usual diet Activity on Discharge: As tolerated Stand Alone Forms: Patient Portal Discharge page, Community Support Activity Restrictions/Additional Instructions: Your history of nonepileptic seizures does not have correlation with your pituitary microadenoma. Recommend following up with your Psychiatrist and regular doctor. Stress can play a major role in nonepileptic seizure or pseudoseizures. Recommend following up with a therapist JULI. If you develop new or worsening symptoms call 911 or come back to the ER for further evaluation. Appointment 04/16/21 11 am [facility] [phone] , , [address] [place] [address]. Care Plan Goals: Mood stability Health Concerns: PTSD Psychogenic nonepileptic seizures Pituitary neoplasm IBS History of schizoaffective disorder, bipolar type Plan of Treatment: Attend scheduled appointments Take medications as indicated Work with [facility] on service allocation Assessment: non-psychotic Pt reports SI is always present, however no current active SI, no intent, no plan Patient Instructions: Nonepileptic Seizures (DC) Discharge Date/Time: 04/09/21 14:01
== END 2021-04-09 14:01 | DRG 885 ==
LOC: HO.ED 21:26 → HO.PM5 03-25 18:35
PROVIDERS: Physician Assistant; Admitting Provider Psychiatry & Neurology Psychiatry; Emergency Provider Emergency Medicine; PCP Nurse Practitioner Family; Visit Provider Clinical Nurse Specialist Psychiatric/Mental Health, Adult
DX: F25.0 Schizoaffective disorder, bipolar type (principal); F44.5 Conversion disorder with seizures or convulsions; D49.7 Neoplasm of unspecified behavior of endocrine glands and other parts of nervous system; Z86.16 Personal history of COVID-19; F43.10 Post-traumatic stress disorder, unspecified; K58.9 Irritable bowel syndrome, unspecified; Z20.822 Contact with and (suspected) exposure to COVID-19; Z87.891 Personal history of nicotine dependence; Z79.899 Other long term (current) drug therapy
CPT/HCPCS: 36415; 80048; 80061; 80076; 80164; 80307; 81003; 82077; 82607; 82746; 83036; 83735; 84443; 85025; 87635; 93005; 99285

== ENCOUNTER 2021-04-23 21:11 | Inpatient (IN) | payer OTHER, SELFPAY ==
--- NOTE | ~2021-04-23 | CT_ITS ---
EXAMINATION: CT HEAD WITHOUT CONTRAST CLINICAL INFORMATION: Pseudoseizure. COMPARISON: CT head from 01/25/2021. Brain MRI from 01/12/2021. TECHNIQUE: Contiguous axial imaging was performed from the skull base to vertex without intravenous administration of contrast. This CT examination was performed using dose optimization techniques as appropriate, variously including the following: *Automated exposure control. *Adjustment of mA and/or kV according to patient size (this includes techniques or standardized protocols for targeted exams where dose is matched to indication/reason for exam; i.e. extremities or head). *Use of iterative reconstruction technique. DLP: 681 mGy-cm FINDINGS: There is no evidence of acute intracranial hemorrhage or edematous territorial infarction. There is no abnormal attenuation within the brain parenchyma. Garcia-white matter differentiation is preserved. The ventricles are normal in size and configuration. No evidence for obstructive hydrocephalus. Redemonstrated 0.7 cm nodular lesion centered within the suprasellar cistern. No new abnormal mass effect or midline shift. No extra-axial fluid collections. No acute soft tissue or osseous abnormalities. The mastoid air cells and paranasal sinuses are clear. Rightward nasal septal deviation. CT/CT head/brain wo con IMPRESSION: 1. No evidence of acute intracranial hemorrhage or edematous territorial infarction. 2. Redemonstrated 0.7 cm nodular lesion centered within the suprasellar cistern.
[2021-04-23 21:16] VITALS: BP 140/64; PULSE 103; RESP 18; TEMP 36.4; O2SAT 100; BMI 29.8
[2021-04-23 21:47] LABS: Appearance Urine CLEAR; Color Urine YELLOW; Glucose Urine UA NEG (NEG); Leukocyte Esterase Urine NEG (NEG); Nitrite Urine NEG (NEG); Urine Blood NEG (NEG); Urine Ketones NEG (NEG); Urine Protein NEG (NEG-TRACE)
[2021-04-23 21:50] LABS: UPreg QC Valid YES; Urine Pregnancy NEGATIVE (NEGATIVE)
[2021-04-23 22:15] LABS: Amphetamine Screen Urine Not Detected (Not Detect); Barbiturates, Urine Not Detected (Not Detect); Benzodiazepines Screen Urine Not Detected (Not Detect); Cannabinoid Screen Urine Not Detected (Not Detect); Cocaine Screen Urine Not Detected (Not Detect); Fentanyl, urine Not Detected (Not Detect); Opiate Screen Urine Not Detected (Not Detect); Phencyclidine Screen Urine Not Detected (Not Detect)
[2021-04-23 22:23] LABS: COVID-19 Test Negative (Negative)
--- NOTE | 2021-04-24 00:06 | ED_ITS ---
HPI - Psych General Chief Complaint: Psychiatric Symptoms Stated Complaint: si Source: patient Mode of arrival: ambulatory Limitations: no limitations History of Present Illness HPI Narrative: 25-year-old female presents to the ED for left forearm self laceration. Patient coming from respite. Patient has had history of doing this before in the past. Patients would not say why she cut herself. Patient won't admit to trying to kill herself. Patient states compliant with the psych meds. Related Data Home Medications Medication Instructions Recorded Confirmed aripiprazole 10 mg tablet 1 tab PO DAILY 04/23/21 04/23/21 hydroxyzine HCl 25 mg tablet 25 mg PO TID PRN 04/23/21 04/23/21 hydroxyzine HCl 50 mg tablet 1 tab PO BEDTIME 04/23/21 04/23/21 lamotrigine 100 mg tablet 100 mg PO BEDTIME 04/23/21 04/23/21 mirtazapine 45 mg tablet 22.5 mg PO BEDTIME 04/23/21 04/23/21 risperidone 1 mg tablet (Risperdal) 1 mg PO BID 04/23/21 04/23/21 Previous Rx's Medication Instructions Recorded aripiprazole 400 mg intramuscular 400 mg IM QMONTH #1 ea 04/08/21 suspension,extended release (Abilifneo Maintena) clonazepam 0.5 mg tablet 1 tab PO BID PRN #60 tab 04/08/21 lorazepam 1 mg tablet 1 mg PO DAILY PRN #30 tab 04/08/21 ondansetron 4 mg disintegrating 4 mg TRANSLINGUAL DAILY PRN #30 tab 04/08/21 tablet ondansetron 8 mg disintegrating 8 mg TRANSLINGUAL BEDTIME #30 tab 04/08/21 tablet risperidone 0.5 mg tablet 0.5 mg PO BID PRN #60 tab 04/08/21 trazodone 100 mg tablet 100 mg PO BEDTIME #30 tab 04/08/21 Allergies Allergy/AdvReac Type Severity Reaction Status Date / Time metoclopramide [From Reglan] Allergy Muscle Verified 01/08/21 20:46 cramps haloperidol [From Haldol] AdvReac Severe Dystonia Verified 01/08/21 20:46 prazosin AdvReac Severe Abdominal Verified 04/05/21 10:55 Pain sucralfate [From Carafate] AdvReac Severe vomiting Verified 01/08/21 20:46 band-aids AdvReac Intermediate skin Uncoded 02/04/21 17:52 irritation Review of Systems Review of Systems: left arm self-laceration Yes all other systems are reviewed and are negative [facility] Past Medical History Medical History Anxiety Depression IBS (irritable bowel syndrome) PTSD (post-traumatic stress disorder) Schizoaffective disorder, bipolar type Schizoaffective disorder, depressive type Schizophrenia Schizophrenia Umbilical hernia Surgical History History of cholecystectomy Social History Social History Household Members: Unknown / Unable to assess Household Members Other:: dad & brother Housing: Other Housing Other:: respite Do you presently have visiting nurse or other home services: No Unable to assess alcohol history related to: Unknown Patient Tobacco Use Status: Former Tobacco user Tobacco use type: Cigarette e-Cigarette/Vaping Use: Never Used Second Hand Smoke Exposure: No Substance Use Type: Marijuana Advance Directives: No Advance Directives Information Provided: No Healthcare Proxy: No Guardian: No Patient : Yes service: No Current occupational status: disabled Sexual orientation: Straight/Heterosexual Physical Exam Vital Signs: Vital Signs: Last Vital Signs Temp 98.1 F 04/24/21 00:40 Pulse 90 04/24/21 00:40 Resp 17 04/24/21 00:40 BP 106/58 L 04/24/21 00:40 Pulse Ox 97 04/24/21 00:40 BMI result Body Mass Index 29.8 Const: General: cooperative, healthy appearing, comfortable, no acute distress, well developed, alert, awake and Physically active O rientation/consciousness: patient oriented x3 HENMT: Head: Yes normal to inspection, Yes No palpable skull fracture present, Yes normocephalic, Yes atraumatic and No abrasion Eyes: General: appearance normal, both eyes and all related structures Neck: Neck: Yes normal visual inspection, Yes full ROM, Yes no lymphadenopathy, Yes no meningeal signs, Yes trachea midline, Yes supple, No anterior neck swelling and No tender Chest: Chest palpation & inspection: normal inspection of the chest and normal palpation of entire chest wall Resp: Effort & Inspection: normal respiratory effort and able to speak in complete sentences Auscultation: clear to auscultation bilaterally Cardio: Jugular venous distension: no JVD Heart sounds: S1 normal heart sound present and S2 normal heart sound present GI: Inspection: Yes normal to inspection and No abdominal wall ecchymosis Palpation (GI): Soft to palpation, not firm, nontender, no guarding and not rigid : General: No CVA tenderness and Yes no CVA tenderness Back/Spine/Pelvis: Back: no CVA tenderness, No CVA tenderness and No back tenderness Skin: Trauma: laceration (very superificial lacerations on left forearm) left forearm linear Neuro: General: patient oriented x3, gait normal, no meningeal signs and CN's II-XI intact bilaterally Cranial nerves: Yes CN's II-XII intact bilaterally Extrem: General: Yes normal to inspection and Yes full ROM Psych: Appearance: grossly normal, well kempt and not disheveled Course Course Course Narrative: Care team initially evaluated patient. Evaluate patient in the morning for more information. UA ordered. Reevaluation(s) Reevaluation #1: Patient to be evaluated by care team in the morning MDM - Psych Lab Data Labs: Lab Results 04/23/21 04/23/21 04/23/21 Range/Units 21:37 21:37 21:38 Urine Color Urine Appearance Urine pH (5.0-8.0) Ur Specific [place] (1.005-1.025) Urine Protein (NEG-TRACE) MG/DL Urine Glucose (UA) (NEG) MG/DL Urine Ketones (NEG) MG/DL Urine Blood (NEG) Urine Nitrite (NEG) Ur Leukocyte Esterase (NEG) Urine Test NEGATIVE (NEGATIVE) Urine Opiates Screen Not Detected (Not Detect) Urine Fentanyl Screen Not Detected (Not Detect) Ur Barbiturates Screen Not Detected (Not Detect) Ur Phencyclidine Scrn Not Detected (Not Detect) Ur Amphetamines Screen Not Detected (Not Detect) U Benzodiazepines Scrn Not Detected (Not Detect) Urine Cocaine Screen Not Detected (Not Detect) U Marijuana (THC) Screen Not Detected (Not Detect) COVID-19 (SHANE) Negative (Negative) COVID-19 Clin Com See Note 04/23/21 Range/Units 21:38 Urine Color YELLOW Urine Appearance CLEAR Urine pH 7.0 (5.0-8.0) Ur Specific [place] 1.010 (1.005-1.025) Urine Protein NEG (NEG-TRACE) MG/DL Urine Glucose (UA) NEG (NEG) MG/DL Urine Ketones NEG (NEG) MG/DL Urine Blood NEG (NEG) Urine Nitrite NEG (NEG) Ur Leukocyte Esterase NEG (NEG) Urine Test (NEGATIVE) Urine Opiates Screen (Not Detect) Urine Fentanyl Screen (Not Detect) Ur Barbiturates Screen (Not Detect) Ur Phencyclidine Scrn (Not Detect) Ur Amphetamines Screen (Not Detect) U Benzodiazepines Scrn (Not Detect) Urine Cocaine Screen (Not Detect) U Marijuana (THC) Screen (Not Detect) COVID-19 (SHANE) (Negative) COVID-19 Clin Com Discharge Plan Discharge Clinical Impression: Depression Patient Disposition: Still a Patient Prescriptions: No Action Abilify Maintena 400 mg suspension,extended rel recon 400 mg IM QMONTH Qty: 1 0RF Label Comments: next dose due is 05/08/2021 ondansetron 8 mg Tablet,Disintegrating 8 mg translingual BEDTIME Qty: 30 0RF trazodone 100 mg Tablet 100 mg PO BEDTIME Qty: 30 0RF ondansetron 4 mg Tablet,Disintegrating 4 mg translingual DAILY PRN (Reason: Nausea) Qty: 30 0RF risperidone 0.5 mg Tablet 0.5 mg PO BID PRN (Reason: grounding) Qty: 60 0RF lorazepam 1 mg tablet 1 mg PO DAILY PRN (Reason: anxiety) Qty: 30 0RF clonazepam 0.5 mg tablet 1 tab PO BID PRN (Reason: Anxiety) Qty: 60 0RF aripiprazole 10 mg tablet 1 tab PO DAILY 0RF hydroxyzine HCl 50 mg tablet 1 tab PO BEDTIME 0RF lamotrigine 100 mg tablet 100 mg PO BEDTIME 0RF mirtazapine 45 mg tablet 22.5 mg PO BEDTIME 0RF hydroxyzine HCl 25 mg tablet 25 mg PO TID PRN (Reason: Anxiety) 0RF risperidone [Risperdal] 1 mg tablet 1 mg PO BID 0RF
[2021-04-24 00:40] VITALS: BP 106/58; PULSE 90; RESP 17; TEMP 36.7; O2SAT 97
--- NOTE | 2021-04-24 05:26 | PC.NURSE ---
Patient slept though the night,no distress observed/reported, behavior calm and quiet, med rec completed/provider approved/MAR updated, patient was assessed by Care Team and plan is to reevaluates in the morning with possible disposition of inpatient, VSS, HS medication not administered because patient had it at Respite before coming to ED, will continue to monitor.
[2021-04-24] MEDS: ARIPiprazole 10 MG TABLET PO (10:02)
[2021-04-24] MEDS: risperiDONE 1 MG TABLET PO ×2 (10:02→20:03)
--- NOTE | 2021-04-24 11:15 | PC.NURSE ---
pt alert and oriented, c/o headache but refused anything that was offered for her headache. pt admits SI denies HI. she states I want to do the same thing I did . pt seen by Chris from Care Team. will continue to monitor.
--- NOTE | 2021-04-24 13:34 | ECG_ITS ---
Test Reason : MED CLEARANCE Blood Pressure : / mmHG Vent. Rate : 091 BPM Atrial Rate : 091 BPM P-R Int : 146 ms QRS Dur : 078 ms QT Int : 362 ms P-R-T Axes : 050 049 037 degrees QTc Int : 445 ms Normal sinus rhythm Nonspecific T wave abnormality Abnormal ECG When compared with ECG of 24-MAR-2021 21:31, No significant change was found Referred By: Donald Chapman Electronically Signed By:Parveen Palma
[2021-04-24 14:21] LABS: Hematocrit 37.5 % (37.0-47.0); Hemoglobin 12.3 g/dl (12.0-16.0); Mean Corpuscular HGB Conc 32.8 g/dl (31.0-35.0); Mean Corpuscular Hemoglobin 31.1 pg (27.0-33.0); Mean Corpuscular Volume 94.7 fL (80.0-98.0); Mean Platelet Volume 8.1 fL (9.4-12.3); Platelet Count 450 X10*3/uL (160-400); Red Blood Count 3.96 X10*6/uL (4.20-5.50); Red Cell Distribution Width 13.2 % (11.0-16.0); White Blood Count 5.2 X10*3/uL (4.8-10.8)
[2021-04-24 17:31] VITALS: BMI 30.4
--- NOTE | 2021-04-24 18:04 | PC.NURSE ---
PATIENT IS ALERT AND ORIENTED X 3 VERBALIZED UNDERSTANDING OF REASON FOR ADMISSION ESCORTED TO ROOM 508-2 ESCORTED BY BY STAFF VIA WHEELCHAIR AND SECURITY WITH BELONGINGS
[2021-04-24 18:43] VITALS: BP 120/74; PULSE 105; RESP 16; TEMP 36.6; O2SAT 99
--- NOTE | 2021-04-24 19:16 | PC.ADMIT ---
Pt is a 25y/o female admitted on CV for SI with a plan. Pt has engaged in SIB and has reported to staff that she cannot contract for safety. Pt admitted for inpatient level of care for safety concerns relating to SI. Pt is alert and oriented X3. VSS, Covid negative, and Tox negative. Pt appears clean with stated age. Speech is regular with normal rhythm tone and ori. Pt endorses SI with a plan to cut herself with a razor. However denies HI/AH/VH. Pt reports feeling safe at her respite facility. Pt is contracted for safety, admission orders obtained.
[2021-04-24] MEDS: lamoTRIgine 100 MG TABLET PO (20:03)
[2021-04-24] MEDS: Mirtazapine 7.5 MG TABLET 22.5 MG PO (20:03)
[2021-04-24] MEDS: Ondansetron ODT 8 MG TAB.RAPDIS TRANSLINGU (20:03)
[2021-04-24] MEDS: hydrOXYzine HCL 50 MG TABLET PO (20:03)
[2021-04-24] MEDS: traZODone HCL 100 MG TABLET PO (20:03)
[2021-04-25 05:45] VITALS: BP 119/70; PULSE 97; TEMP 36.8; O2SAT 99
[2021-04-25 08:09] LABS: Estimated Average Glucose 97 mg/dL
[2021-04-25 08:18] LABS: Alanine Aminotransferase 11 U/L (0-31); Albumin Level 4.3 g/dL (3.5-5.0); Alkaline Phosphatase 73 U/L (39-117); Anion Gap 11 (12-20); Aspartate Amino Transferase 14 U/L (5-31); Bilirubin Total 0.4 mg/dL (0.0-1.0); Blood Urea Nitrogen 11 mg/dL (9-16); Calcium 9.9 mg/dL (8.4-10.2); Carbon Dioxide 31 mmol/L (22-29); Chloride 103 mmol/L (96-108); Cholesterol 205 mg/dL; Estimated Glomerular Filt Rate > 60; Glucose Fasting 86 mg/dL (60-99); HDL Cholesterol 98 mg/dL; LDL Cholesterol Calculated 98 mg/dl; Potassium 4.5 mmol/L (3.3-5.1); Sodium 140 mmol/L (135-145); Total Protein 7.5 g/dL (6.5-8.0); Triglycerides 49 mg/dL
[2021-04-25] MEDS: clonazePAM 0.5 MG TABLET PO (08:23)
[2021-04-25] MEDS: Ondansetron ODT 4 MG TAB.RAPDIS TRANSLINGU (08:23)
[2021-04-25 08:40] LABS: Free T4 (Free Thyroxine) 0.65 ng/dL (0.71-1.85); Thyroid Stimulating Hormone 6.32 uIU/mL (0.32-4.0)
[2021-04-25] MEDS: risperiDONE 1 MG TABLET PO ×2 (09:14→20:45)
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
[2021-04-25 19:33] VITALS: BP 121/59; PULSE 105; RESP 18; TEMP 36.6; O2SAT 99
[2021-04-25] MEDS: traZODone HCL 100 MG TABLET PO (20:45)
[2021-04-25] MEDS: Mirtazapine 7.5 MG TABLET 22.5 MG PO (20:45)
[2021-04-25] MEDS: lamoTRIgine 100 MG TABLET PO (20:45)
[2021-04-25] MEDS: Ondansetron ODT 8 MG TAB.RAPDIS TRANSLINGU (20:45)
[2021-04-25] MEDS: hydrOXYzine HCL 50 MG TABLET PO (20:46)
[2021-04-26 06:00] VITALS: BP 117/78; PULSE 98; TEMP 37; O2SAT 98
[2021-04-26] MEDS: Ondansetron ODT 4 MG TAB.RAPDIS TRANSLINGU (08:27)
[2021-04-26] MEDS: risperiDONE 1 MG TABLET PO ×2 (08:27→20:50)
[2021-04-26] MEDS: clonazePAM 0.5 MG TABLET PO ×2 (08:27→20:50)
[2021-04-26 08:41] LABS: Alanine Aminotransferase 10 U/L (0-31); Albumin Level 4.2 g/dL (3.5-5.0); Alkaline Phosphatase 71 U/L (39-117); Anion Gap 11 (12-20); Aspartate Amino Transferase 12 U/L (5-31); Bilirubin Total 0.3 mg/dL (0.0-1.0); Blood Urea Nitrogen 13 mg/dL (9-16); Calcium 9.8 mg/dL (8.4-10.2); Carbon Dioxide 29 mmol/L (22-29); Chloride 103 mmol/L (96-108); Cholesterol 200 mg/dL; Creatinine Clr Calc Pharmacy 111.5; Estimated Glomerular Filt Rate > 60; Glucose Fasting 91 mg/dL (60-99); HDL Cholesterol 96 mg/dL; LDL Cholesterol Calculated 97 mg/dl; Potassium 4.7 mmol/L (3.3-5.1); Sodium 138 mmol/L (135-145); Total Protein 7.3 g/dL (6.5-8.0); Triglycerides 35 mg/dL
[2021-04-26] MEDS: LORazepam 1 MG TABLET PO (16:30)
--- NOTE | 2021-04-26 17:33 | HO.PSYCHPN ---
Subjective Subjective Date of Service: 04/26/21 Reason For Visit: PTSD Interim History: Delaney had a pseudoseizure and she complained of a headache afterwards. She responded to reassurance. She asserts that she does not need to be in the hospital. Medication Compliance: Yes Side effects from medications: No Mental Status Exam Mental Status Exam Patient Appearance: Disheveled Patient Orientation: Person, Place, Time and Situation Level of Consciousness: Awake and Appropriate Patient Behavior: Guarded, Passive and Uncooperative Mood Description: Apathetic, Suspicious and Depressed Affect Description: Apathetic, Depressed and Blunted Patient Cognition Impaired: No Speech Pattern: Clear Hallucinations: None Delusions: Not Present Thought Process: Rumination Thought Content: positive for Goal Oriented, positive for Suicidal Ideation (Safe on unit) and negative for Homicidal Ideation Depressive Symptoms: Insomnia, Feelings of Worthlessness, Hopelessness and Thoughts of /Suicide Diagnostics Vital Signs (24Hr): Vital Signs - 24 hr 04/25/21 19:33 04/26/21 06:00 Temperature 97.9 F 98.6 F Pulse Rate 105 H 98 Respiratory Rate 18 Blood Pressure 121/59 L 117/78 Pulse Oximetry 99 98 BMI result Body Mass Index 30.4 Labs Results: 04/24/21 14:16 04/26/21 08:04 Labs: Laboratory Results - last 48 hr 04/25/21 04/25/21 04/26/21 07:20 07:20 08:04 Sodium 140 138 Potassium 4.5 4.7 Chloride 103 103 Carbon Dioxide 31 H 29 Anion Gap 11 L 11 L BUN 11 13 Creatinine 0.87 0.85 Estim Creat Clear Calc 109.0 111.5 Estimated GFR > 60 > 60 Fasting Glucose 86 91 Estimat Average Glucose 97 Hemoglobin A1c % 5.0 Calcium 9.9 9.8 Magnesium 2.0 Total Bilirubin 0.4 0.3 AST 14 12 ALT 11 10 Alkaline Phosphatase 73 71 Total Protein 7.5 7.3 Albumin 4.3 4.2 Triglycerides 49 35 Cholesterol 205 200 LDL Cholesterol, Calc 98 97 HDL Cholesterol 98 D 96 TSH 6.32 H Free T4 0.65 L Medications Medications Current Medications Acetaminophen (Acetaminophen 325 Mg Tablet) 650 mg PO Q6H PRN PRN Reason: Headache/Pain Mild Scale (1-3) Al Hydroxide/Mg Hydroxide (Magnesium Hydrox/Alum Hydrox 30 Ml Oral.Susp) 30 ml PO Q6H PRN PRN Reason: Heartburn/Nausea Aripiprazole (Aripiprazole Er 400 Mg Suser.Syr) 400 mg IM Q28D [facility] Aripiprazole (Aripiprazole 10 Mg Tablet) 10 mg PO DAILY [facility] Last Admin: 04/26/21 08:32 Dose: Not Given Documented by: Clonazepam (Clonazepam 0.5 Mg Tablet) 0.5 mg PO BID PRN PRN Reason: Anxiety Last Admin: 04/26/21 08:27 Dose: 0.5 mg Documented by: Hydroxyzine HCl (Hydroxyzine Hcl 25 Mg Tablet) 25 mg PO TID PRN PRN Reason: Anxiety Hydroxyzine HCl (Hydroxyzine Hcl 50 Mg Tablet) 50 mg PO BEDTIME [facility] Last Admin: 04/25/21 20:46 Dose: 50 mg Documented by: Hydroxyzine HCl (Hydroxyzine Hcl 25 Mg Tablet) 25 mg PO BEDTIME PRN PRN Reason: Anxiety Lamotrigine (Lamotrigine 100 Mg Tablet) 100 mg PO BEDTIME [facility] Last Admin: 04/25/21 20:45 Dose: 100 mg Documented by: Lorazepam (Lorazepam 1 Mg Tablet) 1 mg PO DAILY PRN PRN Reason: anxiety Last Admin: 04/26/21 16:30 Dose: 1 mg Documented by: Magnesium Hydroxide (Milk Of Magnesia 30 Ml Oral.Susp) 30 ml PO DAILY PRN PRN Reason: Constipation Magnesium Hydroxide (Milk Of Magnesia 30 Ml Oral.Susp) 30 ml PO DAILY PRN PRN Reason: Constipation Mirtazapine (Mirtazapine 7.5 Mg Tablet) 22.5 mg PO BEDTIME [facility] Last Admin: 04/25/21 20:45 Dose: 22.5 mg Documented by: Ondansetron HCl (Ondansetron Odt 4 Mg Tab.Rapdis) 4 mg TRANSLINGU DAILY PRN PRN Reason: Nausea Last Admin: 04/26/21 08:27 Dose: 4 mg Documented by: Ondansetron HCl (Ondansetron Odt 8 Mg Tab.Rapdis) 8 mg TRANSLINGU BEDTIME [facility] Last Admin: 04/25/21 20:45 Dose: 8 mg Documented by: Risperidone (Risperidone 1 Mg Tablet) 1 mg PO BID [facility] Last Admin: 04/26/21 08:27 Dose: 1 mg Documented by: Risperidone (Risperidone 0.5 Mg Tablet) 0.5 mg PO BID PRN PRN Reason: grounding Trazodone HCl (Trazodone Hcl 100 Mg Tablet) 100 mg PO BEDTIME [facility] Last Admin: 04/25/21 20:45 Dose: 100 mg Documented by: Allergies Allergies Allergy/AdvReac Type Severity Reaction Status Date / Time metoclopramide [From Reglan] Allergy Muscle Verified 01/08/21 20:46 cramps haloperidol [From Haldol] AdvReac Severe Dystonia Verified 01/08/21 20:46 prazosin AdvReac Severe Abdominal Verified 04/05/21 10:55 Pain sucralfate [From Carafate] AdvReac Severe vomiting Verified 01/08/21 20:46 band-aids AdvReac Intermediate skin Uncoded 02/04/21 17:52 irritation Assessment & Plan Assessment & Plan (1) PTSD (post-traumatic stress disorder): Status: Acute Code(s): F43.10 - Post-traumatic stress disorder, unspecified (2) Schizoaffective disorder, bipolar type: Code(s): F25.0 - Schizoaffective disorder, bipolar type (3) IBS (irritable bowel syndrome): Status: Acute Code(s): K58.9 - Irritable bowel syndrome without diarrhea Plan 25 yo female, history of PTSD, Schizoaffective Disorder, presents from respite with increasing SI. Plan: Review of diagnostics CT medications as per previous admission Collect collateral history Liase with respite I spent minutes with the patient and/or on the patient floor today, greater than?50% of which was spent counseling/coordinating care. Patient educated on: diagnosis and medication risk/benefits Informed Consent: further education needed Reason for contiued inpatient stay Substantial Risk for: rapid decompensation
[2021-04-26] MEDS: Ondansetron ODT 8 MG TAB.RAPDIS TRANSLINGU (20:48)
[2021-04-26] MEDS: lamoTRIgine 100 MG TABLET PO (20:50)
[2021-04-26] MEDS: hydrOXYzine HCL 50 MG TABLET PO (20:50)
[2021-04-26] MEDS: Mirtazapine 7.5 MG TABLET 22.5 MG PO (20:50)
[2021-04-26] MEDS: traZODone HCL 100 MG TABLET PO (20:50)
[2021-04-26 21:15] VITALS: BP 118/81; PULSE 120; RESP 17; TEMP 36.7; O2SAT 98
[2021-04-27 06:00] VITALS: BP 111/64; PULSE 94; RESP 18; TEMP 36.7; O2SAT 99
[2021-04-27] MEDS: risperiDONE 1 MG TABLET PO ×2 (08:06→22:03)
[2021-04-27] MEDS: Ondansetron ODT 4 MG TAB.RAPDIS TRANSLINGU (08:07)
[2021-04-27 08:33] LABS: Folate 17.3 ng/mL (> or = 4.0); Vitamin B12 545 pg/mL (200-900)
[2021-04-27] MEDS: LORazepam 1 MG TABLET PO (13:45)
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
[2021-04-27 22:00] VITALS: BP 117/70; PULSE 117; TEMP 36.7; O2SAT 99
[2021-04-27] MEDS: traZODone HCL 100 MG TABLET PO (22:04)
[2021-04-27] MEDS: hydrOXYzine HCL 50 MG TABLET PO (22:04)
[2021-04-27] MEDS: lamoTRIgine 100 MG TABLET PO (22:04)
[2021-04-27] MEDS: Mirtazapine 7.5 MG TABLET 22.5 MG PO (22:04)
[2021-04-27] MEDS: Ondansetron ODT 8 MG TAB.RAPDIS TRANSLINGU (22:06)
[2021-04-28 06:00] VITALS: BP 107/63; PULSE 95; RESP 16; TEMP 36.8; O2SAT 99
[2021-04-28] MEDS: risperiDONE 1 MG TABLET PO (08:46)
--- NOTE | 2021-04-28 13:23 | HO.PSYCHPN ---
Subjective Subjective Date of Service: 04/28/21 Reason For Visit: PTSD Subjective Notes: Conditional Voluntary Healthcare Proxy: No Guardianship: No Medical Problems Affecting Mental Status: No Interim History: Received a message from pt's mother requesting cancellation of consult with [facility] and requesting a call back to discuss medication regime. Discussed with pt. [facility] appt was made in January before pt changed her mind about attending [facility] appt-pt will allow this public relations writer to cancel it. At this time pt refuses permission for tw to discuss medications with family. Today, discussed moving forward with treatment-residential DBT programming, individual therapy and the potential benefits that both offer. Full review of meds with pt as well. Medication Compliance: No (asks to stop PO Abilify, but wants to increase Risperdal) Side effects from medications: No Attending Groups: Yes Review of Systems Acute medical concerns: No Medical Review of Systems: unchanged Review of Systems Reports behavioral changes Psychiatric: Reports anxiety, Reports behavioral changes, Reports depression, Reports difficulty concentrating, Reports hopelessness, Reports irritability, Reports anhedonia, Reports mood swings and Reports suicidal ideation Mental Status Exam Mental Status Exam Patient Appearance: Appropriate Patient Orientation: Person, Place, Time and Situation Level of Consciousness: Alert Patient Behavior: Talkative, Distractible, Good Eye Contact and Poor Eye Contact Mood Description: Depressed Affect Description: Flat Patient Cognition Impaired: No Ability to Follow Directions: Good Speech Pattern: Spontaneous Speech Memory Description: Intact Hallucinations: None Perceptual Disturbances: Depersonalization and Derealization Thought Process: Distracted and Rumination Thought Content: positive for Circumstantial and positive for Suicidal Ideation Depressive Symptoms: Increased Anxiety, Increased Irritability, Feelings of Guilt and Thoughts of /Suicide Judgement: Fair Diagnostics Vital Signs (24Hr): Vital Signs - 24 hr 04/27/21 22:00 04/28/21 06:00 Temperature 98.0 F 98.2 F Pulse Rate 117 H 95 Respiratory Rate 16 Blood Pressure 117/70 107/63 Pulse Oximetry 99 99 BMI result Body Mass Index 30.4 Labs Results: 04/24/21 14:16 04/26/21 08:04 Labs: Laboratory Results - last 48 hr 04/25/21 07:20 Vitamin B12 545 Folate 17.3 Medications Medications Current Medications Acetaminophen (Acetaminophen 325 Mg Tablet) 650 mg PO Q6H PRN PRN Reason: Headache/Pain Mild Scale (1-3) Al Hydroxide/Mg Hydroxide (Magnesium Hydrox/Alum Hydrox 30 Ml Oral.Susp) 30 ml PO Q6H PRN PRN Reason: Heartburn/Nausea Aripiprazole (Aripiprazole Er 400 Mg Suser.Syr) 400 mg IM Q28D [facility] Aripiprazole (Aripiprazole 10 Mg Tablet) 10 mg PO DAILY [facility] Last Admin: 04/28/21 08:48 Dose: Not Given Documented by: Clonazepam (Clonazepam 0.5 Mg Tablet) 0.5 mg PO BID PRN PRN Reason: Anxiety Last Admin: 04/26/21 20:50 Dose: 0.5 mg Documented by: Hydroxyzine HCl (Hydroxyzine Hcl 25 Mg Tablet) 25 mg PO TID PRN PRN Reason: Anxiety Hydroxyzine HCl (Hydroxyzine Hcl 50 Mg Tablet) 50 mg PO BEDTIME [facility] Last Admin: 04/27/21 22:04 Dose: 50 mg Documented by: Hydroxyzine HCl (Hydroxyzine Hcl 25 Mg Tablet) 25 mg PO BEDTIME PRN PRN Reason: Anxiety Lamotrigine (Lamotrigine 100 Mg Tablet) 100 mg PO BEDTIME [facility] Last Admin: 04/27/21 22:04 Dose: 100 mg Documented by: Lorazepam (Lorazepam 1 Mg Tablet) 1 mg PO DAILY PRN PRN Reason: anxiety Last Admin: 04/27/21 13:45 Dose: 1 mg Documented by: Magnesium Hydroxide (Milk Of Magnesia 30 Ml Oral.Susp) 30 ml PO DAILY PRN PRN Reason: Constipation Magnesium Hydroxide (Milk Of Magnesia 30 Ml Oral.Susp) 30 ml PO DAILY PRN PRN Reason: Constipation Mirtazapine (Mirtazapine 7.5 Mg Tablet) 22.5 mg PO BEDTIME [facility] Last Admin: 04/27/21 22:04 Dose: 22.5 mg Documented by: Ondansetron HCl (Ondansetron Odt 4 Mg Tab.Rapdis) 4 mg TRANSLINGU DAILY PRN PRN Reason: Nausea Last Admin: 04/27/21 08:07 Dose: 4 mg Documented by: Ondansetron HCl (Ondansetron Odt 8 Mg Tab.Rapdis) 8 mg TRANSLINGU BEDTIME [facility] Last Admin: 04/27/21 22:06 Dose: 8 mg Documented by: Risperidone (Risperidone 1 Mg Tablet) 1 mg PO BID [facility] Last Admin: 04/28/21 08:46 Dose: 1 mg Documented by: Risperidone (Risperidone 0.5 Mg Tablet) 0.5 mg PO BID PRN PRN Reason: grounding Trazodone HCl (Trazodone Hcl 100 Mg Tablet) 100 mg PO BEDTIME [facility] Last Admin: 04/27/21 22:04 Dose: 100 mg Documented by: Allergies Allergies Allergy/AdvReac Type Severity Reaction Status Date / Time metoclopramide [From Reglan] Allergy Muscle Verified 01/08/21 20:46 cramps haloperidol [From Haldol] AdvReac Severe Dystonia Verified 01/08/21 20:46 prazosin AdvReac Severe Abdominal Verified 04/05/21 10:55 Pain sucralfate [From Carafate] AdvReac Severe vomiting Verified 01/08/21 20:46 band-aids AdvReac Intermediate skin Uncoded 02/04/21 17:52 irritation Assessment & Plan Assessment & Plan (1) PTSD (post-traumatic stress disorder): Status: Acute Code(s): F43.10 - Post-traumatic stress disorder, unspecified (2) Schizoaffective disorder, bipolar type: Code(s): F25.0 - Schizoaffective disorder, bipolar type (3) IBS (irritable bowel syndrome): Status: Acute Code(s): K58.9 - Irritable bowel syndrome without diarrhea Plan 25 yo female, history of PTSD, Schizoaffective Disorder, presents from respite with increasing SI. Plan: Review of diagnostics CT medications as per previous admission Collect collateral history Liase with respite 04/27/21 Continue current regime Diagnostics for [facility] appt. Assist pt in distress tolerance. 04/28/21 Reports ongoing poor sleep, depression -Trazodone 300 mg HS (increased at [facility]) -Remeron 30 mg HS -Increase Risperdal to 2 mg bid (has stopped Abilify po-believes this may be more helpful) I spent minutes with the patient and/or on the patient floor today, greater than?50% of which was spent counseling/coordinating care. Patient educated on: medication risk/benefits and therapeutic strategies Informed Consent: understands and further education needed Reason for contiued inpatient stay Substantial Risk for: harm to self, inability to function and rapid decompensation
[2021-04-28] MEDS: LORazepam 1 MG TABLET PO (17:09)
[2021-04-28 18:00] VITALS: BP 107/72; PULSE 115; TEMP 36.3; O2SAT 99
[2021-04-28] MEDS: Ondansetron ODT 8 MG TAB.RAPDIS TRANSLINGU (21:23)
[2021-04-28] MEDS: Mirtazapine 30 MG TABLET PO (21:54)
[2021-04-28] MEDS: hydrOXYzine HCL 50 MG TABLET PO (21:55)
[2021-04-28] MEDS: risperiDONE 2 MG TABLET PO (21:55)
[2021-04-28] MEDS: traZODone HCL 100 MG TABLET 300 MG PO (21:55)
[2021-04-28] MEDS: lamoTRIgine 100 MG TABLET PO (21:55)
[2021-04-29 06:00] VITALS: BP 93/58; PULSE 81; RESP 16; TEMP 36.9; O2SAT 99
[2021-04-29] MEDS: risperiDONE 2 MG TABLET PO ×2 (09:17→21:20)
[2021-04-29] MEDS: clonazePAM 0.5 MG TABLET PO ×2 (11:53→18:43)
[2021-04-29] MEDS: hydrOXYzine HCL 25 MG TABLET PO ×2 (14:29→18:43)
[2021-04-29] MEDS: LORazepam 1 MG TABLET PO (17:13)
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
[2021-04-29 21:12] VITALS: BP 102/60; PULSE 129; RESP 18; TEMP 37.2; O2SAT 99
[2021-04-29] MEDS: traZODone HCL 100 MG TABLET 300 MG PO (21:19)
[2021-04-29] MEDS: hydrOXYzine HCL 50 MG TABLET PO (21:19)
[2021-04-29] MEDS: Mirtazapine 30 MG TABLET PO (21:19)
[2021-04-29] MEDS: lamoTRIgine 100 MG TABLET PO (21:20)
[2021-04-29] MEDS: Ondansetron ODT 8 MG TAB.RAPDIS TRANSLINGU (21:20)
[2021-04-29] MEDS: Diphth,Pertus(ACell),Tet Adult 0.5 ML SYRINGE IM (21:20)
[2021-04-29 22:22] VITALS: BP 113/71; PULSE 98; TEMP 37.1; O2SAT 98
--- NOTE | 2021-04-29 23:49 | PC.NURSE ---
Patient was sitting in the kitchen when another patient was yelling in the hallway. Patient apparently was upset with the activity in the hallway and began having a pseudoseizure around 2029. Patient's vital signs were taken and read temperature 99.1 temporal scan; bp 132/85 via automated bp machine , RR 24, Heart rate 145 manually. Patient's eyes fluttering and eyes rolled backwards, droolng noted. Rapid response was called. Rapid response team on M5 at 2034. Hospitalist evaluated patient and ordered Ativan 0.5 mg IM x 1 which was given in the left upper arm. Patient was transported to her room via wheelchair and placed in the rescue position on her bed. Staff monitored patient for 30 minutes. No further pseudoseizures noted.
[2021-04-30 07:00] VITALS: BMI 31.3
[2021-04-30] MEDS: risperiDONE 2 MG TABLET PO ×2 (09:15→20:17)
[2021-04-30 09:36] VITALS: BP 114/72; PULSE 96; TEMP 36.6; O2SAT 98
[2021-04-30] MEDS: hydrOXYzine HCL 25 MG TABLET PO (12:30)
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
[2021-04-30 19:38] VITALS: BP 138/72; PULSE 120; RESP 17; TEMP 36.6; O2SAT 100
[2021-04-30] MEDS: Ondansetron ODT 8 MG TAB.RAPDIS TRANSLINGU (20:14)
[2021-04-30] MEDS: lamoTRIgine 100 MG TABLET PO (20:17)
[2021-04-30] MEDS: hydrOXYzine HCL 50 MG TABLET PO (20:17)
[2021-04-30] MEDS: clonazePAM 1 MG TABLET PO (20:17)
[2021-04-30] MEDS: traZODone HCL 100 MG TABLET 300 MG PO (20:17)
[2021-04-30] MEDS: Mirtazapine 30 MG TABLET PO (20:17)
[2021-05-01 06:00] VITALS: BP 118/77; PULSE 102; RESP 18; TEMP 36.7; O2SAT 99
[2021-05-01] MEDS: Ondansetron ODT 4 MG TAB.RAPDIS TRANSLINGU (09:01)
[2021-05-01] MEDS: clonazePAM 0.5 MG TABLET PO (09:01)
[2021-05-01] MEDS: risperiDONE 2 MG TABLET PO ×2 (09:34→20:52)
--- NOTE | 2021-05-01 17:39 | P.PNPSI_ITS ---
Subjective Subjective Date of Service: 05/01/21 Reason For Visit: PTSD Subjective Notes: Conditional Voluntary Interim History: Discussed sleep and efficacy of Remeron/Trazodone increases. Delaney would like a bit more time to assess efficacy. Also discussed po Risperdal vs Abilify. She remains undecided as to the efficacy of these as well. Denies SE. Sleep is impr chilo she reports, however, she does report some daytime sleepiness--?Trazodone SE. Medication Compliance: Yes Side effects from medications: Yes (possible trazodone SE) Attending Groups: Yes Review of Systems Acute medical concerns: No Medical Review of Systems: unchanged Review of Systems Reports behavioral changes Psychiatric: Reports anxiety, Reports behavioral changes, Reports depression, Reports difficulty concentrating, Reports hopelessness, Reports irritability, Reports anhedonia, Reports mood swings and Reports suicidal ideation Mental Status Exam Mental Status Exam Patient Appearance: Appropriate Patient Orientation: Person, Place, Time and Situation Level of Consciousness: Alert Patient Behavior: Talkative, Distractible, Good Eye Contact and Poor Eye Contact Mood Description: Depressed Affect Description: Flat Patient Cognition Impaired: No Ability to Follow Directions: Good Speech Pattern: Spontaneous Speech Memory Description: Intact Hallucinations: None Perceptual Disturbances: Depersonalization and Derealization Thought Process: Distracted and Rumination Thought Content: positive for Circumstantial and positive for Suicidal Ideation Depressive Symptoms: Increased Anxiety, Increased Irritability, Feelings of Guilt and Thoughts of /Suicide Judgement: Fair Diagnostics Vital Signs (24Hr): Vital Signs - 24 hr 04/30/21 19:38 05/01/21 06:00 Temperature 97.9 F 98.0 F Pulse Rate 120 H 102 H Respiratory Rate 17 18 Blood Pressure 138/72 118/77 Pulse Oximetry 100 99 BMI result Body Mass Index 31.3 Labs Results: 04/24/21 14:16 04/26/21 08:04 Medications Medications Current Medications Al Hydroxide/Mg Hydroxide (Magnesium Hydrox/Alum Hydrox 30 Ml Oral.Susp) 30 ml PO Q6H PRN PRN Reason: Heartburn/Nausea Aripiprazole (Aripiprazole Er 400 Mg Suser.Syr) 400 mg IM Q28D [facility] Clonazepam (Clonazepam 0.5 Mg Tablet) 0.5 mg PO BID PRN PRN Reason: Anxiety Last Admin: 05/01/21 09:01 Dose: 0.5 mg Documented by: Clonazepam (Clonazepam 1 Mg Tablet) 1 mg PO BEDTIME PRN PRN Reason: insomnia Last Admin: 04/30/21 20:17 Dose: 1 mg Documented by: Hydroxyzine HCl (Hydroxyzine Hcl 25 Mg Tablet) 25 mg PO TID PRN PRN Reason: Anxiety Last Admin: 04/30/21 12:30 Dose: 25 mg Documented by: Hydroxyzine HCl (Hydroxyzine Hcl 50 Mg Tablet) 50 mg PO BEDTIME [facility] Last Admin: 04/30/21 20:17 Dose: 50 mg Documented by: Lamotrigine (Lamotrigine 100 Mg Tablet) 100 mg PO BEDTIME [facility] Last Admin: 04/30/21 20:17 Dose: 100 mg Documented by: Magnesium Hydroxide (Milk Of Magnesia 30 Ml Oral.Susp) 30 ml PO DAILY PRN PRN Reason: Constipation Mirtazapine (Mirtazapine 30 Mg Tablet) 30 mg PO BEDTIME [facility] Last Admin: 04/30/21 20:17 Dose: 30 mg Documented by: Ondansetron HCl (Ondansetron Odt 4 Mg Tab.Rapdis) 4 mg TRANSLINGU DAILY PRN PRN Reason: Nausea Last Admin: 05/01/21 09:01 Dose: 4 mg Documented by: Ondansetron HCl (Ondansetron Odt 8 Mg Tab.Rapdis) 8 mg TRANSLINGU BEDTIME [facility] Last Admin: 04/30/21 20:14 Dose: 8 mg Documented by: Risperidone (Risperidone 2 Mg Tablet) 2 mg PO BID [facility] Last Admin: 05/01/21 09:34 Dose: 2 mg Documented by: Trazodone HCl (Trazodone Hcl 100 Mg Tablet) 300 mg PO BEDTIME [facility] Last Admin: 04/30/21 20:17 Dose: 300 mg Documented by: Allergies Allergies Allergy/AdvReac Type Severity Reaction Status Date / Time metoclopramide [From Reglan] Allergy Muscle Verified 01/08/21 20:46 cramps haloperidol [From Haldol] AdvReac Severe Dystonia Verified 01/08/21 20:46 prazosin AdvReac Severe Abdominal Verified 04/05/21 10:55 Pain sucralfate [From Carafate] AdvReac Severe vomiting Verified 01/08/21 20:46 band-aids AdvReac Intermediate skin Uncoded 02/04/21 17:52 irritation Assessment & Plan Assessment & Plan (1) PTSD (post-traumatic stress disorder): Status: Acute Code(s): F43.10 - Post-traumatic stress disorder, unspecified (2) Schizoaffective disorder, bipolar type: Code(s): F25.0 - Schizoaffective disorder, bipolar type (3) IBS (irritable bowel syndrome): Status: Acute Code(s): K58.9 - Irritable bowel syndrome without diarrhea Plan 25 yo female, history of PTSD, Schizoaffective Disorder, presents from respite with increasing SI. Plan: Review of diagnostics CT medications as per previous admission Collect collateral history Liase with respite 04/27/21 Continue current regime Diagnostics for [facility] appt. Assist pt in distress tolerance. 04/29/21 Continue current regime. Tolerating changes made 04/28/21. Encourage pt to attend OP psychotherapy, DBT focused treatment to re-enforce skills for managing trauma work. 05/01/21 No changes in regime today. I spent minutes with the patient and/or on the patient floor today, greater than?50% of which was spent counseling/coordinating care. Patient educated on: diagnosis, medication risk/benefits and therapeutic strategies Informed Consent: understands and further education needed Reason for contiued inpatient stay Substantial Risk for: harm to self, inability to function and rapid dec ompensation
[2021-05-01] MEDS: Ondansetron ODT 8 MG TAB.RAPDIS TRANSLINGU (20:50)
[2021-05-01] MEDS: Mirtazapine 30 MG TABLET PO (20:52)
[2021-05-01] MEDS: hydrOXYzine HCL 50 MG TABLET PO (20:52)
[2021-05-01] MEDS: lamoTRIgine 100 MG TABLET PO (20:52)
[2021-05-01] MEDS: traZODone HCL 100 MG TABLET 300 MG PO (20:52)
[2021-05-01] MEDS: clonazePAM 1 MG TABLET PO (20:52)
[2021-05-02 06:00] VITALS: BP 95/61; PULSE 88; RESP 16; TEMP 36.6; O2SAT 98
[2021-05-02] MEDS: risperiDONE 2 MG TABLET PO ×2 (09:16→22:30)
[2021-05-02 18:00] VITALS: BP 126/72; PULSE 108; TEMP 36.9; O2SAT 98
[2021-05-02] MEDS: Ondansetron ODT 8 MG TAB.RAPDIS TRANSLINGU (21:58)
[2021-05-02 22:11] LABS: Follicle Stimulating Hormone 4.3 mIU/mL; Lutenizing Hormone 6.8 mIU/mL
[2021-05-02] MEDS: hydrOXYzine HCL 50 MG TABLET PO (22:27)
[2021-05-02] MEDS: lamoTRIgine 100 MG TABLET PO (22:27)
[2021-05-02] MEDS: Mirtazapine 30 MG TABLET PO (22:30)
[2021-05-02] MEDS: traZODone HCL 100 MG TABLET 300 MG PO (22:30)
--- NOTE | 2021-05-02 23:33 | HO.PSYCHPN ---
Subjective Subjective Date of Service: 05/02/21 Reason For Visit: PTSD Interim History: pt said she's having thoughts of hurting herself, superficially, though she says she has not done so; she says it helps her be distracted from other thoughts, though she does not reveal. She says she's having paranoid thoughts. She is not sure if she wants medications changed. Pt expresses gratitude for writers inquiry Mental Status Exam Mental Status Exam Narrative: Patient Appearance:?Appropriate Patient Orientation:?Person, Place, Time and Situation Level of Consciousness:?Alert Patient Behavior:?quiet, calm; minimal Eye Contact Mood Description:?Depressed Affect Description:?blunted Patient Cognition Impaired:?No Ability to Follow Directions:?Good Speech Pattern:?Spontaneous Speech Memory Description:?Intact Hallucinations:?None Perceptual Disturbances:?Depersonalization and Derealization Thought Process:?goal oriented, logical Thought Content:?no SI/HI but +for urges to superficially self harm Judgement:?Fair Diagnostics Vital Signs (24Hr): Vital Signs - 24 hr 05/02/21 06:00 Temperature 98 F Pulse Rate 88 Respiratory Rate 16 Blood Pressure 95/61 Pulse Oximetry 98 BMI result Body Mass Index 31.3 Labs Results: 04/24/21 14:16 04/26/21 08:04 Labs: Laboratory Results - last 48 hr 04/28/21 08:13 FSH 4.3 Luteinizing Hormone 6.8 Prolactin 8.0 Medications Medications Current Medications Al Hydroxide/Mg Hydroxide (Magnesium Hydrox/Alum Hydrox 30 Ml Oral.Susp) 30 ml PO Q6H PRN PRN Reason: Heartburn/Nausea Aripiprazole (Aripiprazole Er 400 Mg Suser.Syr) 400 mg IM Q28D [facility] Clonazepam (Clonazepam 0.5 Mg Tablet) 0.5 mg PO BID PRN PRN Reason: Anxiety Last Admin: 05/01/21 09:01 Dose: 0.5 mg Documented by: Clonazepam (Clonazepam 1 Mg Tablet) 1 mg PO BEDTIME PRN PRN Reason: insomnia Last Admin: 05/01/21 20:52 Dose: 1 mg Documented by: Hydroxyzine HCl (Hydroxyzine Hcl 25 Mg Tablet) 25 mg PO TID PRN PRN Reason: Anxiety Last Admin: 04/30/21 12:30 Dose: 25 mg Documented by: Hydroxyzine HCl (Hydroxyzine Hcl 50 Mg Tablet) 50 mg PO BEDTIME [facility] Last Admin: 05/02/21 22:27 Dose: 50 mg Documented by: Lamotrigine (Lamotrigine 100 Mg Tablet) 100 mg PO BEDTIME [facility] Last Admin: 05/02/21 22:27 Dose: 100 mg Documented by: Magnesium Hydroxide (Milk Of Magnesia 30 Ml Oral.Susp) 30 ml PO DAILY PRN PRN Reason: Constipation Mirtazapine (Mirtazapine 30 Mg Tablet) 30 mg PO BEDTIME [facility] Last Admin: 05/02/21 22:30 Dose: 30 mg Documented by: Ondansetron HCl (Ondansetron Odt 4 Mg Tab.Rapdis) 4 mg TRANSLINGU DAILY PRN PRN Reason: Nausea Last Admin: 05/01/21 09:01 Dose: 4 mg Documented by: Ondansetron HCl (Ondansetron Odt 8 Mg Tab.Rapdis) 8 mg TRANSLINGU BEDTIME [facility] Last Admin: 05/02/21 21:58 Dose: 8 mg Documented by: Risperidone (Risperidone 2 Mg Tablet) 2 mg PO BID [facility] Last Admin: 05/02/21 22:30 Dose: 2 mg Documented by: Trazodone HCl (Trazodone Hcl 100 Mg Tablet) 300 mg PO BEDTIME [facility] Last Admin: 05/02/21 22:30 Dose: 300 mg Documented by: Allergies Allergies Allergy/AdvReac Type Severity Reaction Status Date / Time metoclopramide [From Reglan] Allergy Muscle Verified 01/08/21 20:46 cramps haloperidol [From Haldol] AdvReac Severe Dystonia Verified 01/08/21 20:46 prazosin AdvReac Severe Abdominal Verified 04/05/21 10:55 Pain sucralfate [From Carafate] AdvReac Severe vomiting Verified 01/08/21 20:46 band-aids AdvReac Intermediate skin Uncoded 02/04/21 17:52 irritation Assessment & Plan Assessment & Plan (1) PTSD (post-traumatic stress disorder): Status: Acute Code(s): F43.10 - Post-traumatic stress disorder, unspecified (2) IBS (irritable bowel syndrome): Status: Acute Code(s): K58.9 - Irritable bowel syndrome without diarrhea Plan 25 yo female, history of PTSD, Schizoaffective Disorder, presents from respite with increasing SI. Plan: Review of diagnostics CT medications as per previous admission Collect collateral history Liase with respite 04/27/21 Continue current regime Diagnostics for [facility] appt. Assist pt in distress tolerance. 04/29/21 Continue current regime. Tolerating changes made 04/28/21. Encourage pt to attend OP psychotherapy, DBT focused treatment to re-enforce skills for managing trauma work. 04/30/21: Discussed trialing klonopin 1 mg QHS PRN for sleep aid, however also reviewed that benzodiazepines are not the medication of choice for PTSD. Will weigh risks and benefits upon trial. 05/02 pt depressed; urges to superficially self harm but able to keep herself from it Changes to Q5min checks for no med changes consulted Mariam who suggests dc risperdal and restart PO abilify I spent minutes with the patient and/or on the patient floor today, greater than?50% of which was spent counseling/coordinating care. Reason for contiued inpatient stay Substantial Risk for: rapid decompensation
[2021-05-03 06:00] VITALS: PULSE 89; RESP 16; TEMP 37.4; O2SAT 96
[2021-05-03] MEDS: risperiDONE 2 MG TABLET PO ×2 (10:07→20:14)
[2021-05-03 10:10] VITALS: BP 117/63; PULSE 99
--- NOTE | 2021-05-03 17:26 | HO.PSYCHPN ---
Subjective Subjective Date of Service: 05/03/21 Reason For Visit: PTSD Interim History: pt remains feeling depressed and says she feels shitty. Does not want to talk much; discussed meds with leader writer but says she would rather wait until [facility] [place] to which leader writer agrees. Mental Status Exam Mental Status Exam Narrative: Patient Appearance:?Appropriate Patient Orientation:?Person, Place, Time and Situation Level of Consciousness:?Alert Patient Behavior:?quiet, calm; minimal Eye Contact Mood Description:?Depressed, shitty Affect Description:?blunted Patient Cognition Impaired:?No Ability to Follow Directions:?Good Speech Pattern:?Spontaneous Speech Memory Description:?Intact Hallucinations:?None Perceptual Disturbances:?Depersonalization and Derealization Thought Process:?goal oriented, logical Thought Content:?passive SI; no HI but +for urges to superficially self harm Judgement:?Fair Diagnostics Vital Signs (24Hr): Vital Signs - 24 hr 05/02/21 18:00 05/03/21 06:00 05/03/21 10:10 Temperature 98.4 F 99.4 F Pulse Rate 108 H 89 99 Respiratory Rate 16 Blood Pressure 126/72 117/63 Pulse Oximetry 98 96 BMI result Body Mass Index 31.3 Labs Results: 04/24/21 14:16 04/26/21 08:04 Labs: Laboratory Results - last 48 hr 04/28/21 08:13 FSH 4.3 Luteinizing Hormone 6.8 Prolactin 8.0 Medications Medications Current Medications Al Hydroxide/Mg Hydroxide (Magnesium Hydrox/Alum Hydrox 30 Ml Oral.Susp) 30 ml PO Q6H PRN PRN Reason: Heartburn/Nausea Aripiprazole (Aripiprazole Er 400 Mg Suser.Syr) 400 mg IM Q28D [facility] Clonazepam (Clonazepam 0.5 Mg Tablet) 0.5 mg PO BID PRN PRN Reason: Anxiety Last Admin: 05/01/21 09:01 Dose: 0.5 mg Documented by: Clonazepam (Clonazepam 1 Mg Tablet) 1 mg PO BEDTIME PRN PRN Reason: insomnia Last Admin: 05/01/21 20:52 Dose: 1 mg Documented by: Hydroxyzine HCl (Hydroxyzine Hcl 25 Mg Tablet) 25 mg PO TID PRN PRN Reason: Anxiety Last Admin: 04/30/21 12:30 Dose: 25 mg Documented by: Hydroxyzine HCl (Hydroxyzine Hcl 50 Mg Tablet) 50 mg PO BEDTIME [facility] Last Admin: 05/02/21 22:27 Dose: 50 mg Documented by: Lamotrigine (Lamotrigine 100 Mg Tablet) 100 mg PO BEDTIME [facility] Last Admin: 05/02/21 22:27 Dose: 100 mg Documented by: Magnesium Hydroxide (Milk Of Magnesia 30 Ml Oral.Susp) 30 ml PO DAILY PRN PRN Reason: Constipation Mirtazapine (Mirtazapine 30 Mg Tablet) 30 mg PO BEDTIME [facility] Last Admin: 05/02/21 22:30 Dose: 30 mg Documented by: Ondansetron HCl (Ondansetron Odt 4 Mg Tab.Rapdis) 4 mg TRANSLINGU DAILY PRN PRN Reason: Nausea Last Admin: 05/01/21 09:01 Dose: 4 mg Documented by: Ondansetron HCl (Ondansetron Odt 8 Mg Tab.Rapdis) 8 mg TRANSLINGU BEDTIME [facility] Last Admin: 05/02/21 21:58 Dose: 8 mg Documented by: Risperidone (Risperidone 2 Mg Tablet) 2 mg PO BID [facility] Last Admin: 05/03/21 10:07 Dose: 2 mg Documented by: Trazodone HCl (Trazodone Hcl 100 Mg Tablet) 300 mg PO BEDTIME [facility] Last Admin: 05/02/21 22:30 Dose: 300 mg Documented by: Allergies Allergies Allergy/AdvReac Type Severity Reaction Status Date / Time metoclopramide [From Reglan] Allergy Muscle Verified 01/08/21 20:46 cramps haloperidol [From Haldol] AdvReac Severe Dystonia Verified 01/08/21 20:46 prazosin AdvReac Severe Abdominal Verified 04/05/21 10:55 Pain sucralfate [From Carafate] AdvReac Severe vomiting Verified 01/08/21 20:46 band-aids AdvReac Intermediate skin Uncoded 02/04/21 17:52 irritation Assessment & Plan Assessment & Plan (1) PTSD (post-traumatic stress disorder): Status: Acute Code(s): F43.10 - Post-traumatic stress disorder, unspecified (2) IBS (irritable bowel syndrome): Status: Acute Code(s): K58.9 - Irritable bowel syndrome without diarrhea Plan 25 yo female, history of PTSD, Schizoaffective Disorder, presents from respite with increasing SI. Plan: Review of diagnostics CT medications as per previous admission Collect collateral history Liase with respite 04/27/21 Continue current regime Diagnostics for [facility] appt. Assist pt in distress tolerance. 04/29/21 Continue current regime. Tolerating changes made 04/28/21. Encourage pt to attend OP psychotherapy, DBT focused treatment to re-enforce skills for managing trauma work. 04/30/21: Discussed trialing klonopin 1 mg QHS PRN for sleep aid, however also reviewed that benzodiazepines are not the medication of choice for PTSD. Will weigh risks and benefits upon trial. 05/03 no changes to med regimen remains on q5 I spent minutes with the patient and/or on the patient floor today, greater than?50% of which was spent counseling/coordinating care. Reason for contiued inpatient stay Substantial Risk for: rapid decompensation
[2021-05-03] MEDS: clonazePAM 0.5 MG TABLET PO (19:38)
[2021-05-03] MEDS: Ondansetron ODT 8 MG TAB.RAPDIS TRANSLINGU (20:13)
[2021-05-03] MEDS: traZODone HCL 100 MG TABLET 300 MG PO (20:14)
[2021-05-03] MEDS: hydrOXYzine HCL 50 MG TABLET PO (20:14)
[2021-05-03] MEDS: lamoTRIgine 100 MG TABLET PO (20:14)
[2021-05-03] MEDS: Mirtazapine 30 MG TABLET PO (20:15)
[2021-05-04 06:00] VITALS: BP 121/64; PULSE 94; RESP 18; TEMP 36.7; O2SAT 98
[2021-05-04] MEDS: risperiDONE 2 MG TABLET PO (09:16)
--- NOTE | 2021-05-04 16:23 | P.PNPSI_ITS ---
Subjective Subjective Date of Service: 05/04/21 Reason For Visit: PTSD Subjective Notes: Conditional Voluntary Healthcare Proxy: No Guardianship: No Medical Problems Affecting Mental Status: No Interim History: Delaney reports difficulties this weekend-increase in depressive sx, SI, SIBS. Also reports she could not sleep last evening/night due to flashbacks. Discussed change of Abilify to Risperdal and some of the properties that may be contributing. Discussed return to Abilify. Discussed upcoming Maintena IM due this week. Struggling with medications being called antipsychotic -discussed. Review of Corine and the various uses for different medications. Discussed changes which may be helpful in improving symptom management. Medication Compliance: Yes Side effects from medications: No Attending Groups: Intermittent Review of Systems Acute medical concerns: No Medical Review of Systems: unchanged Review of Systems Psychiatric: Reports abnormal sleep pattern, Reports anxiety, Reports depression, Reports hopelessness, Reports anhedonia, Reports mood swings and Reports suicidal ideation Mental Status Exam Mental Status Exam Patient Appearance: Appropriate Patient Orientation: Person, Place, Time and Situation Level of Consciousness: Alert Patient Behavior: Appropriate, Talkative, Cooperative, Fearful, Distractible and Good Eye Contact Mood Description: Depressed Affect Description: Flat Patient Cognition Impaired: No Ability to Follow Directions: Good Speech Pattern: Clear, Perseverating, Appropriate, Spontaneous Speech, Coherent and Soft-Spoken Memory Description: Intact Hallucinations: None Delusions: Not Present Perceptual Disturbances: Depersonalization and Derealization Thought Process: Rumination Thought Content: positive for Intact, positive for Perseveration and positive for Suicidal Ideation Depressive Symptoms: Insomnia, Difficulty Sleeping, Thoughts of /Suicide and Difficulty Concentrating Judgement: Fair Diagnostics Vital Signs (24Hr): Vital Signs - 24 hr 05/04/21 06:00 Temperature 98.1 F Pulse Rate 94 Respiratory Rate 18 Blood Pressure 121/64 Pulse Oximetry 98 BMI result Body Mass Index 31.3 Labs Results: 04/24/21 14:16 04/26/21 08:04 Labs: Laboratory Results - last 48 hr 04/28/21 08:13 FSH 4.3 Luteinizing Hormone 6.8 Prolactin 8.0 Medications Medications Current Medications Al Hydroxide/Mg Hydroxide (Magnesium Hydrox/Alum Hydrox 30 Ml Oral.Susp) 30 ml PO Q6H PRN PRN Reason: Heartburn/Nausea Aripiprazole (Aripiprazole Er 400 Mg Suser.Syr) 400 mg IM Q28D [facility] Clonidine HCl (Clonidine Hcl 0.1 Mg Tablet) 0.1 mg PO DAILY [facility]; Protocol Hydroxyzine HCl (Hydroxyzine Hcl 25 Mg Tablet) 25 mg PO TID PRN PRN Reason: Anxiety Last Admin: 04/30/21 12:30 Dose: 25 mg Documented by: Hydroxyzine HCl (Hydroxyzine Hcl 50 Mg Tablet) 50 mg PO BEDTIME [facility] Last Admin: 05/03/21 20:14 Dose: 50 mg Documented by: Lamotrigine (Lamotrigine 25 Mg Tablet) 125 mg PO BEDTIME [facility] Lorazepam (Lorazepam 1 Mg Tablet) 1 mg PO Q6H PRN PRN Reason: anxiety Magnesium Hydroxide (Milk Of Magnesia 30 Ml Oral.Susp) 30 ml PO DAILY PRN PRN Reason: Constipation Mirtazapine (Mirtazapine 7.5 Mg Tablet) 22.5 mg PO BEDTIME [facility] Ondansetron HCl (Ondansetron Odt 4 Mg Tab.Rapdis) 4 mg TRANSLINGU DAILY PRN PRN Reason: Nausea Last Admin: 05/01/21 09:01 Dose: 4 mg Documented by: Ondansetron HCl (Ondansetron Odt 8 Mg Tab.Rapdis) 8 mg TRANSLINGU BEDTIME [facility] Last Admin: 05/03/21 20:13 Dose: 8 mg Documented by: Quetiapine Fumarate (Quetiapine Fumarate 100 Mg Tablet) 100 mg PO BEDTIME PRN PRN Reason: insomnia Risperidone (Risperidone 1 Mg Tablet) 1 mg PO BID PRN PRN Reason: grounding support Trazodone HCl (Trazodone Hcl 100 Mg Tablet) 300 mg PO BEDTIME COUNTS INCLUDE 234 BEDS AT [facility] Last Admin: 05/03/21 20:14 Dose: 300 mg Documented by: Allergies Allergies Allergy/AdvReac Type Severity Reaction Status Date / Time metoclopramide [From Reglan] Allergy Muscle Verified 01/08/21 20:46 cramps haloperidol [From Haldol] AdvReac Severe Dystonia Verified 01/08/21 20:46 prazosin AdvReac Severe Abdominal Verified 04/05/21 10:55 Pain sucralfate [From Carafate] AdvReac Severe vomiting Verified 01/08/21 20:46 band-aids AdvReac Intermediate skin Uncoded 02/04/21 17:52 irritation Assessment & Plan Assessment & Plan (1) PTSD (post-traumatic stress disorder): Status: Acute Code(s): F43.10 - Post-traumatic stress disorder, unspecified (2) IBS (irritable bowel syndrome): Status: Acute Code(s): K58.9 - Irritable bowel syndrome without diarrhea Plan 25 yo female, history of PTSD, Schizoaffective Disorder, presents from respite with increasing SI. Plan: Review of diagnostics CT medications as per previous admission Collect collateral history Liase with respite 04/27/21 Continue current regime Diagnostics for [facility] appt. Assist pt in distress tolerance. 04/29/21 Continue current regime. Tolerating changes made 04/28/21. Encourage pt to attend OP psychotherapy, DBT focused treatment to re-enforce skills for managing trauma work. 04/30/21: Discussed trialing klonopin 1 mg QHS PRN for sleep aid, however also reviewed that benzodiazepines are not the medication of choice for PTSD. Will weigh risks and benefits upon trial. 05/03 no changes to med regimen remains on q5 05/04/21: Remeron taper to 22.5 mg HS Change Risperdal to prn Seroquel 100 mg hs prn for sleep/anxiety/agitation Increase Lamictal to 125 mg daily Clonidine 0.1 mg a.m. I spent minutes with the patient and/or on the patient floor today, greater than?50% of which was spent counseling/coordinating care. Patient educated on: diagnosis, medication risk/benefits and therapeutic strategies Informed Consent: understands and further education needed Reason for contiued inpatient stay Substantial Risk for: harm to self, inability to function and rapid decompensation
[2021-05-04] MEDS: hydrOXYzine HCL 25 MG TABLET PO (19:40)
[2021-05-04] MEDS: Ondansetron ODT 8 MG TAB.RAPDIS TRANSLINGU (21:07)
[2021-05-04] MEDS: lamoTRIgine 25 MG TABLET 125 MG PO (21:10)
[2021-05-04] MEDS: traZODone HCL 100 MG TABLET 300 MG PO (21:10)
[2021-05-04] MEDS: hydrOXYzine HCL 50 MG TABLET PO (21:11)
[2021-05-04] MEDS: QUEtiapine Fumarate 100 MG TABLET PO (21:11)
[2021-05-04] MEDS: Mirtazapine 7.5 MG TABLET 22.5 MG PO (21:11)
[2021-05-04 21:31] VITALS: BP 120/70; PULSE 123; RESP 16; TEMP 37; O2SAT 100
[2021-05-05 08:51] VITALS: BP 116/65; PULSE 82; RESP 16; TEMP 36.8; O2SAT 98
[2021-05-05] MEDS: cloNIDine HCL 0.1 MG TABLET PO (09:14)
--- NOTE | 2021-05-05 16:07 | P.PNPSI_ITS ---
Subjective Subjective Date of Service: 05/05/21 Reason For Visit: PTSD Subjective Notes: Conditional Voluntary Healthcare Proxy: No Guardianship: No Medical Problems Affecting Mental Status: No Interim History: Delaney reports she is tolerating medication changes without adverse effects. She reports some improvement in her sleep. Medication Compliance: Yes Side effects from medications: No Attending Groups: Intermittent Review of Systems Acute medical concerns: No Medical Review of Systems: unchanged Review of Systems Psychiatric: Reports abnormal sleep pattern, Reports anxiety, Reports depression, Reports hopelessness, Reports anhedonia, Reports mood swings and Reports suicidal ideation Mental Status Exam Mental Status Exam Patient Appearance: Appropriate Patient Orientation: Person, Place, Time and Situation Level of Consciousness: Alert Patient Behavior: Appropriate, Talkative, Cooperative, Fearful, Distractible and Good Eye Contact Mood Description: Depressed Affect Description: Flat Patient Cognition Impaired: No Ability to Follow Directions: Good Speech Pattern: Clear, Perseverating, Appropriate, Spontaneous Speech, Coherent and Soft-Spoken Memory Description: Intact Hallucinations: None Delusions: Not Present Perceptual Disturbances: Depersonalization and Derealization Thought Process: Rumination Thought Content: positive for Intact, positive for Perseveration and positive for Suicidal Ideation Depressive Symptoms: Insomnia, Difficulty Sleeping, Thoughts of /Suicide and Difficulty Concentrating Judgement: Fair Diagnostics Vital Signs (24Hr): Vital Signs - 24 hr 05/04/21 21:31 05/05/21 08:51 Temperature 98.6 F 98.2 F Pulse Rate 123 H 82 Respiratory Rate 16 16 Blood Pressure 120/70 116/65 Pulse Oximetry 100 98 BMI result Body Mass Index 31.3 Labs Results: 04/24/21 14:16 04/26/21 08:04 Medications Medications Current Medications Al Hydroxide/Mg Hydroxide (Magnesium Hydrox/Alum Hydrox 30 Ml Oral.Susp) 30 ml PO Q6H PRN PRN Reason: Heartburn/Nausea Aripiprazole (Aripiprazole Er 400 Mg Suser.Syr) 400 mg IM Q28D [facility] Clonidine HCl (Clonidine Hcl 0.1 Mg Tablet) 0.1 mg PO DAILY [facility]; Protocol Last Admin: 05/05/21 09:14 Dose: 0.1 mg Documented by: Hydroxyzine HCl (Hydroxyzine Hcl 25 Mg Tablet) 25 mg PO TID PRN PRN Reason: Anxiety Last Admin: 05/04/21 19:40 Dose: 25 mg Documented by: Hydroxyzine HCl (Hydroxyzine Hcl 50 Mg Tablet) 50 mg PO BEDTIME [facility] Last Admin: 05/04/21 21:11 Dose: 50 mg Documented by: Lamotrigine (Lamotrigine 25 Mg Tablet) 125 mg PO BEDTIME [facility] Last Admin: 05/04/21 21:10 Dose: 125 mg Documented by: Lorazepam (Lorazepam 1 Mg Tablet) 1 mg PO Q6H PRN PRN Reason: anxiety Magnesium Hydroxide (Milk Of Magnesia 30 Ml Oral.Susp) 30 ml PO DAILY PRN PRN Reason: Constipation Mirtazapine (Mirtazapine 7.5 Mg Tablet) 22.5 mg PO BEDTIME [facility] Last Admin: 05/04/21 21:11 Dose: 22.5 mg Documented by: Ondansetron HCl (Ondansetron Odt 4 Mg Tab.Rapdis) 4 mg TRANSLINGU DAILY PRN PRN Reason: Nausea Last Admin: 05/01/21 09:01 Dose: 4 mg Documented by: Ondansetron HCl (Ondansetron Odt 8 Mg Tab.Rapdis) 8 mg TRANSLINGU BEDTIME [facility] Last Admin: 05/04/21 21:07 Dose: 8 mg Documented by: Quetiapine Fumarate (Quetiapine Fumarate 100 Mg Tablet) 100 mg PO BEDTIME PRN PRN Reason: insomnia Last Admin: 05/04/21 21:11 Dose: 100 mg Documented by: Risperidone (Risperidone 1 Mg Tablet) 1 mg PO BID PRN PRN Reason: grounding support Trazodone HCl (Trazodone Hcl 100 Mg Tablet) 300 mg PO BEDTIME [facility] Last Admin: 05/04/21 21:10 Dose: 300 mg Documented by: Allergies Allergies Allergy/AdvReac Type Severity Reaction Status Date / Time metoclopramide [From Reglan] Allergy Muscle Verified 01/08/21 20:46 cramps haloperidol [From Haldol] AdvReac Severe Dystonia Verified 01/08/21 20:46 prazosin AdvReac Severe Abdominal Verified 04/05/21 10:55 Pain sucralfate [From Carafate] AdvReac Severe vomiting Verified 01/08/21 20:46 band-aids AdvReac Intermediate skin Uncoded 02/04/21 17:52 irritation Assessment & Plan Assessment & Plan (1) PTSD (post-traumatic stress disorder): Status: Acute Code(s): F43.10 - Post-traumatic stress disorder, unspecified (2) IBS (irritable bowel syndrome): Status: Acute Code(s): K58.9 - Irritable bowel syndrome without diarrhea Plan 25 yo female, history of PTSD, Schizoaffective Disorder, presents from respite with increasing SI. Plan: Review of diagnostics CT medications as per previous admission Collect collateral history Liase with respite 04/27/21 Continue current regime Diagnostics for [facility] appt. Assist pt in distress tolerance. 04/29/21 Continue current regime. Tolerating changes made 04/28/21. Encourage pt to attend OP psychotherapy, DBT focused treatment to re-enforce skills for managing trauma work. 04/30/21: Discussed trialing klonopin 1 mg QHS PRN for sleep aid, however also reviewed that benzodiazepines are not the medication of choice for PTSD. Will weigh risks and benefits upon trial. 05/03 no changes to med regimen remains on q5 05/05/21 Continue current regime I spent minutes with the patient and/or on the patient floor today, greater than?50% of which was spent counseling/coordinating care. Patient educated on: medication risk/benefits and therapeutic strategies Informed Consent: understands and further education needed Reason for contiued inpatient stay Substantial Risk for: harm to self, inability to function and rapid decompensation
[2021-05-05] MEDS: LORazepam 1 MG TABLET PO (20:07)
[2021-05-05] MEDS: Ondansetron ODT 8 MG TAB.RAPDIS TRANSLINGU (21:34)
[2021-05-05 22:00] VITALS: BP 118/82; PULSE 92; TEMP 36.6; O2SAT 99
[2021-05-05] MEDS: lamoTRIgine 25 MG TABLET 125 MG PO (22:15)
[2021-05-05] MEDS: Mirtazapine 7.5 MG TABLET 22.5 MG PO (22:15)
[2021-05-05] MEDS: hydrOXYzine HCL 50 MG TABLET PO (22:16)
[2021-05-05] MEDS: traZODone HCL 100 MG TABLET 300 MG PO (22:16)
[2021-05-05] MEDS: QUEtiapine Fumarate 100 MG TABLET PO (22:21)
[2021-05-06] MEDS: cloNIDine HCL 0.1 MG TABLET PO (09:11)
[2021-05-06 09:14] VITALS: BP 107/59; PULSE 86; RESP 18; TEMP 36.7; O2SAT 99
[2021-05-06] MEDS: risperiDONE 1 MG TABLET PO (14:17)
[2021-05-06] MEDS: LORazepam 1 MG TABLET PO (16:56)
--- NOTE | 2021-05-06 17:00 | HO.PSYCHPN ---
Subjective Subjective Date of Service: 05/06/21 Reason For Visit: PTSD Subjective Notes: Conditional Voluntary Healthcare Proxy: No Guardianship: No Medical Problems Affecting Mental Status: No Interim History: Delaney reports sleep is improved with Seroquel. She discussed feeling silenced. We reviewed how her voice is channelled in SIBS, SI, anger. Discussed alternative ways to express herself, possibly with improved feeling of being heard and responded to. Tolerating medication changes of 05/04, 05/05. Medication Compliance: Yes Side effects from medications: No Attending Groups: Yes Review of Systems Acute medical concerns: No Medical Review of Systems: unchanged Review of Systems Psychiatric: Reports abnormal sleep pattern, Reports anxiety, Reports depression, Reports hopelessness, Reports anhedonia, Reports mood swings and Reports suicidal ideation Mental Status Exam Mental Status Exam Patient Appearance: Appropriate Patient Orientation: Person, Place, Time and Situation Level of Consciousness: Alert Patient Behavior: Appropriate, Talkative, Cooperative, Fearful, Distractible and Good Eye Contact Mood Description: Depressed Affect Description: Flat Patient Cognition Impaired: No Ability to Follow Directions: Good Speech Pattern: Clear, Perseverating, Appropriate, Spontaneous Speech, Coherent and Soft-Spoken Memory Description: Intact Hallucinations: None Delusions: Not Present Perceptual Disturbances: Depersonalization and Derealization Thought Process: Rumination Thought Content: positive for Intact, positive for Perseveration and positive for Suicidal Ideation Depressive Symptoms: Insomnia, Difficulty Sleeping, Thoughts of /Suicide and Difficulty Concentrating Judgement: Fair Diagnostics Vital Signs (24Hr): Vital Signs - 24 hr 05/05/21 22:00 05/06/21 09:14 Temperature 97.8 F 98.1 F Pulse Rate 92 86 Respiratory Rate 18 Blood Pressure 118/82 107/59 L Pulse Oximetry 99 99 BMI result Body Mass Index 31.3 Labs Results: 04/24/21 14:16 04/26/21 08:04 Medications Medications Current Medications Al Hydroxide/Mg Hydroxide (Magnesium Hydrox/Alum Hydrox 30 Ml Oral.Susp) 30 ml PO Q6H PRN PRN Reason: Heartburn/Nausea Aripiprazole (Aripiprazole Er 400 Mg Suser.Syr) 400 mg IM Q28D [facility] Clonidine HCl (Clonidine Hcl 0.1 Mg Tablet) 0.1 mg PO DAILY FROILAN; Protocol Last Admin: 05/06/21 09:11 Dose: 0.1 mg Documented by: Hydroxyzine HCl (Hydroxyzine Hcl 25 Mg Tablet) 25 mg PO TID PRN PRN Reason: Anxiety Last Admin: 05/04/21 19:40 Dose: 25 mg Documented by: Hydroxyzine HCl (Hydroxyzine Hcl 50 Mg Tablet) 50 mg PO BEDTIME FRO[facility]AN Last Admin: 05/05/21 22:16 Dose: 50 mg Documented by: Lamotrigine (Lamotrigine 25 Mg Tablet) 125 mg PO BEDTIME FROILAN Last Admin: 05/05/21 22:15 Dose: 125 mg Documented by: Lorazepam (Lorazepam 1 Mg Tablet) 1 mg PO Q6H PRN PRN Reason: anxiety Last Admin: 05/06/21 16:56 Dose: 1 mg Documented by: Magnesium Hydroxide (Milk Of Magnesia 30 Ml Oral.Susp) 30 ml PO DAILY PRN PRN Reason: Constipation Mirtazapine (Mirtazapine 7.5 Mg Tablet) 22.5 mg PO BEDTIME [facility] Last Admin: 05/05/21 22:15 Dose: 22.5 mg Documented by: Ondansetron HCl (Ondansetron Odt 4 Mg Tab.Rapdis) 4 mg TRANSLINGU DAILY PRN PRN Reason: Nausea Last Admin: 05/01/21 09:01 Dose: 4 mg Documented by: Ondansetron HCl (Ondansetron Odt 8 Mg Tab.Rapdis) 8 mg TRANSLINGU BEDTIME [facility] Last Admin: 05/05/21 21:34 Dose: 8 mg Documented by: Quetiapine Fumarate (Quetiapine Fumarate 100 Mg Tablet) 100 mg PO BEDTIME PRN PRN Reason: insomnia Last Admin: 05/05/21 22:21 Dose: 100 mg Documented by: Risperidone (Risperidone 1 Mg Tablet) 1 mg PO BID PRN PRN Reason: grounding support Last Admin: 05/06/21 14:17 Dose: 1 mg Documented by: Trazodone HCl (Trazodone Hcl 100 Mg Tablet) 300 mg PO BEDTIME FRO[facility]AN Last Admin: 05/05/21 22:16 Dose: 300 mg Documented by: Allergies Allergies Allergy/AdvReac Type Severity Reaction Status Date / Time metoclopramide [From Reglan] Allergy Muscle Verified 01/08/21 20:46 cramps haloperidol [From Haldol] AdvReac Severe Dystonia Verified 01/08/21 20:46 prazosin AdvReac Severe Abdominal Verified 04/05/21 10:55 Pain sucralfate [From Carafate] AdvReac Severe vomiting Verified 01/08/21 20:46 band-aids AdvReac Intermediate skin Uncoded 02/04/21 17:52 irritation Assessment & Plan Assessment & Plan (1) PTSD (post-traumatic stress disorder): Status: Acute Code(s): F43.10 - Post-traumatic stress disorder, unspecified (2) IBS (irritable bowel syndrome): Status: Acute Code(s): K58.9 - Irritable bowel syndrome without diarrhea Plan 25 yo female, history of PTSD, Schizoaffective Disorder, presents from respite with increasing SI. Plan: Review of diagnostics CT medications as per previous admission Collect collateral history Liase with respite 04/27/21 Continue current regime Diagnostics for [facility] appt. Assist pt in distress tolerance. 04/29/21 Continue current regime. Tolerating changes made 04/28/21. Encourage pt to attend OP psychotherapy, DBT focused treatment to re-enforce skills for managing trauma work. 04/30/21: Discussed trialing klonopin 1 mg QHS PRN for sleep aid, however also reviewed that benzodiazepines are not the medication of choice for PTSD. Will weigh risks and benefits upon trial. 05/03 no changes to med regimen remains on q5 05/06/21 Continue current plan of care I spent minutes with the patient and/or on the patient floor today, greater than?50% of which was spent counseling/coordinating care. Patient educated on: medication risk/benefits and therapeutic strategies Informed Consent: further education needed Reason for contiued inpatient stay Substantial Risk for: harm to self, inability to function and rapid decompensation
[2021-05-06 20:10] VITALS: BP 120/73; PULSE 105; TEMP 36.6; O2SAT 99
[2021-05-06] MEDS: Ondansetron ODT 8 MG TAB.RAPDIS TRANSLINGU (20:23)
[2021-05-06] MEDS: traZODone HCL 100 MG TABLET 300 MG PO (20:34)
[2021-05-06] MEDS: Mirtazapine 7.5 MG TABLET 22.5 MG PO (20:34)
[2021-05-06] MEDS: hydrOXYzine HCL 50 MG TABLET PO (20:34)
[2021-05-06] MEDS: lamoTRIgine 25 MG TABLET 125 MG PO (20:34)
[2021-05-06] MEDS: QUEtiapine Fumarate 100 MG TABLET PO (20:43)
[2021-05-07] MEDS: cloNIDine HCL 0.1 MG TABLET PO (09:28)
[2021-05-07 09:30] VITALS: BP 100/57; PULSE 90; RESP 18; TEMP 36.6; O2SAT 100
--- NOTE | 2021-05-07 13:39 | HO.PSYCHPN ---
Subjective Subjective Date of Service: 05/07/21 Reason For Visit: PTSD Subjective Notes: Conditional Voluntary Healthcare Proxy: No Guardianship: No Medical Problems Affecting Mental Status: No Interim History: Review of rationale for Abilify use with PTSD sx. Discussion of the benefits of psychotherapy with PTSD. Discussion of Delaney's goals to move ahead in life without family and create her own family. Medication Compliance: Yes Side effects from medications: No Attending Groups: Intermittent Review of Systems Acute medical concerns: No Medical Review of Systems: unchanged Review of Systems Psychiatric: Reports abnormal sleep pattern, Reports anxiety, Reports depression, Reports hopelessness, Reports anhedonia, Reports mood swings and Reports suicidal ideation Mental Status Exam Mental Status Exam Patient Appearance: Appropriate Patient Orientation: Person, Place, Time and Situation Level of Consciousness: Alert Patient Behavior: Appropriate, Talkative, Cooperative, Fearful, Distractible and Good Eye Contact Mood Description: Depressed Affect Description: Flat Patient Cognition Impaired: No Ability to Follow Directions: Good Speech Pattern: Clear, Perseverating, Appropriate, Spontaneous Speech, Coherent and Soft-Spoken Memory Description: Intact Hallucinations: None Delusions: Not Present Perceptual Disturbances: Depersonalization and Derealization Thought Process: Rumination Thought Content: positive for Intact, positive for Perseveration and positive for Suicidal Ideation Depressive Symptoms: Insomnia, Difficulty Sleeping, Thoughts of /Suicide and Difficulty Concentrating Judgement: Fair Diagnostics Vital Signs (24Hr): Vital Signs - 24 hr 05/06/21 20:10 05/07/21 09:30 Temperature 98 F 97.8 F Pulse Rate 105 H 90 Respiratory Rate 18 Blood Pressure 120/73 100/57 L Pulse Oximetry 99 100 BMI result Body Mass Index 31.3 Labs Results: 04/24/21 14:16 04/26/21 08:04 Medications Medications Current Medications Al Hydroxide/Mg Hydroxide (Magnesium Hydrox/Alum Hydrox 30 Ml Oral.Susp) 30 ml PO Q6H PRN PRN Reason: Heartburn/Nausea Aripiprazole (Aripiprazole Er 400 Mg Suser.Syr) 400 mg IM Q28D [facility] Clonidine HCl (Clonidine Hcl 0.1 Mg Tablet) 0.1 mg PO DAILY FROIL[facility]; Protocol Last Admin: 05/07/21 09:28 Dose: 0.1 mg Documented by: Hydroxyzine HCl (Hydroxyzine Hcl 25 Mg Tablet) 25 mg PO TID PRN PRN Reason: Anxiety Last Admin: 05/04/21 19:40 Dose: 25 mg Documented by: Hydroxyzine HCl (Hydroxyzine Hcl 50 Mg Tablet) 50 mg PO BEDTIME [facility] Last Admin: 05/06/21 20:34 Dose: 50 mg Documented by: Lamotrigine (Lamotrigine 25 Mg Tablet) 125 mg PO BEDTIME [facility] Last Admin: 05/06/21 20:34 Dose: 125 mg Documented by: Lorazepam (Lorazepam 1 Mg Tablet) 1 mg PO Q6H PRN PRN Reason: anxiety Last Admin: 05/06/21 16:56 Dose: 1 mg Documented by: Magnesium Hydroxide (Milk Of Magnesia 30 Ml Oral.Susp) 30 ml PO DAILY PRN PRN Reason: Constipation Mirtazapine (Mirtazapine 7.5 Mg Tablet) 22.5 mg PO BEDTIME [facility] Last Admin: 05/06/21 20:34 Dose: 22.5 mg Documented by: Ondansetron HCl (Ondansetron Odt 4 Mg Tab.Rapdis) 4 mg TRANSLINGU DAILY PRN PRN Reason: Nausea Last Admin: 05/01/21 09:01 Dose: 4 mg Documented by: Ondansetron HCl (Ondansetron Odt 8 Mg Tab.Rapdis) 8 mg TRANSLINGU BEDTIME [facility] Last Admin: 05/06/21 20:23 Dose: 8 mg Documented by: Quetiapine Fumarate (Quetiapine Fumarate 100 Mg Tablet) 100 mg PO BEDTIME PRN PRN Reason: insomnia Last Admin: 05/06/21 20:43 Dose: 100 mg Documented by: Risperidone (Risperidone 1 Mg Tablet) 1 mg PO BID PRN PRN Reason: grounding support Last Admin: 05/06/21 14:17 Dose: 1 mg Documented by: Trazodone HCl (Trazodone Hcl 100 Mg Tablet) 300 mg PO BEDTIME FRO[facility] Last Admin: 05/06/21 20:34 Dose: 300 mg Documented by: Allergies Allergies Allergy/AdvReac Type Severity Reaction Status Date / Time metoclopramide [From Reglan] Allergy Muscle Verified 01/08/21 20:46 cramps haloperidol [From Haldol] AdvReac Severe Dystonia Verified 01/08/21 20:46 prazosin AdvReac Severe Abdominal Verified 04/05/21 10:55 Pain sucralfate [From Carafate] AdvReac Severe vomiting Verified 01/08/21 20:46 band-aids AdvReac Intermediate skin Uncoded 02/04/21 17:52 irritation Assessment & Plan Assessment & Plan (1) PTSD (post-traumatic stress disorder): Status: Acute Code(s): F43.10 - Post-traumatic stress disorder, unspecified (2) IBS (irritable bowel syndrome): Status: Acute Code(s): K58.9 - Irritable bowel syndrome without diarrhea Plan 25 yo female, history of PTSD, Schizoaffective Disorder, presents from respite with increasing SI. Plan: Review of diagnostics CT medications as per previous admission Collect collateral history Liase with respite 04/27/21 Continue current regime Diagnostics for [facility] appt. Assist pt in distress tolerance. 04/29/21 Continue current regime. Tolerating changes made 04/28/21. Encourage pt to attend OP psychotherapy, DBT focused treatment to re-enforce skills for managing trauma work. 04/30/21: Discussed trialing klonopin 1 mg QHS PRN for sleep aid, however also reviewed that benzodiazepines are not the medication of choice for PTSD. Will weigh risks and benefits upon trial. 05/03 no changes to med regimen remains on q5 05/06/21 Continue current plan of care 05/07/21 Continue current regime Encouraged to accept Abilify Maintana on 05/08/21. Discussion of chosing a therapist, interviewing potential therapists. Pt to consider. I spent minutes with the patient and/or on the patient floor today, greater than?50% of which was spent counseling/coordinating care. Patient educated on: medication risk/benefits and therapeutic strategies Informed Consent: understands and further education needed Reason for contiued inpatient stay Substantial Risk for: harm to self, inability to function and rapid decompensation
[2021-05-07] MEDS: risperiDONE 1 MG TABLET PO (17:17)
[2021-05-07] MEDS: LORazepam 1 MG TABLET PO (17:17)
[2021-05-07 17:19] VITALS: BP 130/75; PULSE 102; RESP 16; TEMP 37.2; O2SAT 99
[2021-05-07] MEDS: lamoTRIgine 25 MG TABLET 125 MG PO (20:46)
[2021-05-07] MEDS: Ondansetron ODT 8 MG TAB.RAPDIS TRANSLINGU (20:46)
[2021-05-07] MEDS: Mirtazapine 7.5 MG TABLET 22.5 MG PO (20:46)
[2021-05-07] MEDS: hydrOXYzine HCL 50 MG TABLET PO (20:47)
[2021-05-07] MEDS: traZODone HCL 100 MG TABLET 300 MG PO (20:47)
[2021-05-07 22:32] LABS: Estradiol Free 1.71 pg/mL; Estradiol, Ultrasensitive 91 pg/mL
[2021-05-08 09:10] VITALS: BP 104/56; PULSE 98; RESP 18; TEMP 36.4; O2SAT 98
[2021-05-08] MEDS: ARIPiprazole ER 400 MG SUSER.SYR IM (10:01)
[2021-05-08] MEDS: cloNIDine HCL 0.1 MG TABLET PO (10:16)
[2021-05-08 15:07] LABS: Cortisol, Free 0.95 mcg/dL
--- NOTE | 2021-05-08 15:42 | P.PNPSI_ITS ---
Subjective Subjective Date of Service: 05/08/21 Reason For Visit: PTSD Subjective Notes: Conditional Voluntary Healthcare Proxy: No Guardianship: No Medical Problems Affecting Mental Status: No Interim History: Accepted IM [facility] Jones this a.m., however states she was sleepy when she said yes and meant not to. Ongoing discussion of looking for a therapist today. She is considering. She is pleased with Seroquel assistance with sleep and discussed keeping a mood chart to track Abilify progress. Medication Compliance: Yes Side effects from medications: No Attending Groups: Yes Review of Systems Acute medical concerns: No Medical Review of Systems: unchanged Review of Systems Psychiatric: Reports abnormal sleep pattern, Reports anxiety, Reports depression, Reports hopelessness, Reports anhedonia, Reports mood swings and Reports suicidal ideation Mental Status Exam Mental Status Exam Patient Appearance: Appropriate Patient Orientation: Person, Place, Time and Situation Level of Consciousness: Alert Patient Behavior: Appropriate, Talkative, Cooperative, Fearful, Distractible and Good Eye Contact Mood Description: Depressed Affect Description: Flat Patient Cognition Impaired: No Ability to Follow Directions: Good Speech Pattern: Clear, Perseverating, Appropriate, Spontaneous Speech, Coherent and Soft-Spoken Memory Description: Intact Hallucinations: None Delusions: Not Present Perceptual Disturbances: Depersonalization and Derealization Thought Process: Rumination Thought Content: positive for Intact, positive for Perseveration and positive for Suicidal Ideation Depressive Symptoms: Insomnia, Difficulty Sleeping, Thoughts of /Suicide and Difficulty Concentrating Judgement: Fair Diagnostics Vital Signs (24Hr): Vital Signs - 24 hr 05/07/21 17:19 05/08/21 09:10 Temperature 98.9 F 97.6 F Pulse Rate 102 H 98 Respiratory Rate 16 18 Blood Pressure 130/75 104/56 L Pulse Oximetry 99 98 BMI result Body Mass Index 31.3 Labs Results: 04/24/21 14:16 04/26/21 08:04 Labs: Laboratory Results - last 48 hr 04/28/21 08:13 Free Estradiol 1.71 Total Estradiol 91 Free Cortisol 0.95 H Medications Medications Current Medications Al Hydroxide/Mg Hydroxide (Magnesium Hydrox/Alum Hydrox 30 Ml Oral.Susp) 30 ml PO Q6H PRN PRN Reason: Heartburn/Nausea Aripiprazole (Aripiprazole Er 400 Mg Suser.Syr) 400 mg IM Q28D [facility] Last Admin: 05/08/21 10:01 Dose: 400 mg Documented by: Clonidine HCl (Clonidine Hcl 0.1 Mg Tablet) 0.1 mg PO DAILY FROILAN; Protocol Last Admin: 05/08/21 10:16 Dose: 0.1 mg Documented by: Hydroxyzine HCl (Hydroxyzine Hcl 25 Mg Tablet) 25 mg PO TID PRN PRN Reason: Anxiety Last Admin: 05/04/21 19:40 Dose: 25 mg Documented by: Hydroxyzine HCl (Hydroxyzine Hcl 50 Mg Tablet) 50 mg PO BEDTIME FROILAN Last Admin: 05/07/21 20:47 Dose: 50 mg Documented by: Lamotrigine (Lamotrigine 25 Mg Tablet) 125 mg PO BEDTIME FROILAN Last Admin: 05/07/21 20:46 Dose: 125 mg Documented by: Lorazepam (Lorazepam 1 Mg Tablet) 1 mg PO Q6H PRN PRN Reason: anxiety Last Admin: 05/07/21 17:17 Dose: 1 mg Documented by: Magnesium Hydroxide (Milk Of Magnesia 30 Ml Oral.Susp) 30 ml PO DAILY PRN PRN Reason: Constipation Mirtazapine (Mirtazapine 7.5 Mg Tablet) 22.5 mg PO BEDTIME [facility] Last Admin: 05/07/21 20:46 Dose: 22.5 mg Documented by: Ondansetron HCl (Ondansetron Odt 4 Mg Tab.Rapdis) 4 mg TRANSLINGU DAILY PRN PRN Reason: Nausea Last Admin: 05/01/21 09:01 Dose: 4 mg Documented by: Ondansetron HCl (Ondansetron Odt 8 Mg Tab.Rapdis) 8 mg TRANSLINGU BEDTIME [facility]AN Last Admin: 05/07/21 20:46 Dose: 8 mg Documented by: Quetiapine Fumarate (Quetiapine Fumarate 100 Mg Tablet) 100 mg PO BEDTIME PRN PRN Reason: insomnia Last Admin: 05/06/21 20:43 Dose: 100 mg Documented by: Risperidone (Risperidone 1 Mg Tablet) 1 mg PO BID PRN PRN Reason: grounding support Last Admin: 05/07/21 17:17 Dose: 1 mg Documented by: Trazodone HCl (Trazodone Hcl 100 Mg Tablet) 300 mg PO BEDTIME [facility] Last Admin: 05/07/21 20:47 Dose: 300 mg Documented by: Allergies Allergies Allergy/AdvReac Type Severity Reaction Status Date / Time metoclopramide [From [facility]] Allergy Muscle Verified 01/08/21 20:46 cramps haloperidol [From Haldol] AdvReac Severe Dystonia Verified 01/08/21 20:46 prazosin AdvReac Severe Abdominal Verified 04/05/21 10:55 Pain sucralfate [From Carafate] AdvReac Severe vomiting Verified 01/08/21 20:46 band-aids AdvReac Intermediate skin Uncoded 02/04/21 17:52 irritation Assessment & Plan Assessment & Plan (1) PTSD (post-traumatic stress disorder): Status: Acute Code(s): F43.10 - Post-traumatic stress disorder, unspecified (2) IBS (irritable bowel syndrome): Status: Acute Code(s): K58.9 - Irritable bowel syndrome without diarrhea Plan 25 yo female, history of PTSD, Schizoaffective Disorder, presents from respite with increasing SI. Plan: Review of diagnostics CT medications as per previous admission Collect collateral history Liase with respite 04/27/21 Continue current regime Diagnostics for [facility] appt. Assist pt in distress tolerance. 04/29/21 Continue current regime. Tolerating changes made 04/28/21. Encourage pt to attend OP psychotherapy, DBT focused treatment to re-enforce skills for managing trauma work. 04/30/21: Discussed trialing klonopin 1 mg QHS PRN for sleep aid, however also reviewed that benzodiazepines are not the medication of choice for PTSD. Will weigh risks and benefits upon trial. 05/03 no changes to med regimen remains on q5 05/06/21 Continue current plan of care 05/07/21 Continue current regime Encouraged to accept Abilify Maintana on 05/08/21. Discussion of chosing a therapist, interviewing potential therapists. Pt to consider. 05/08/21 Schedule Seroquel at HS per pt request Mood charting to begin next week. I spent minutes with the patient and/or on the patient floor today, greater than?50% of which was spent counseling/coordinating care. Patient educated on: therapeutic strategies Informed Consent: understands and further education needed Reason for contiued inpatient stay Substantial Risk for: harm to self, inability to function and rapid decompensation
[2021-05-08 20:40] VITALS: BP 96/30; PULSE 99; TEMP 36.4
[2021-05-08] MEDS: lamoTRIgine 25 MG TABLET 125 MG PO (22:02)
[2021-05-08] MEDS: hydrOXYzine HCL 50 MG TABLET PO (22:03)
[2021-05-08] MEDS: Mirtazapine 7.5 MG TABLET 22.5 MG PO (22:04)
[2021-05-08] MEDS: Ondansetron ODT 8 MG TAB.RAPDIS TRANSLINGU (22:05)
[2021-05-08] MEDS: traZODone HCL 100 MG TABLET 300 MG PO (22:06)
[2021-05-08] MEDS: QUEtiapine Fumarate 100 MG TABLET PO (22:06)
--- NOTE | 2021-05-09 08:51 | HO.PSYCHPN ---
Subjective Subjective Date of Service: 05/09/21 Reason For Visit: PTSD Subjective Notes: Conditional Voluntary Medical Problems Affecting Mental Status: No Interim History: Patient was seen and discussed in rounds today. Records and plans were reviewed. She has been isolative. She did receive a dose of Abilify Maintena. No complaints or side effects. She continues to feel somewhat depressed. Eating and sleeping adequately. No complaints or side effects. No changes were made today Medication Compliance: Yes Side effects from medications: No Review of Systems Psychiatric: Reports abnormal sleep pattern, Reports anxiety, Reports depression, Reports hopelessness, Reports anhedonia, Reports mood swings and Reports suicidal ideation Diagnostics Vital Signs (24Hr): Vital Signs - 24 hr 05/08/21 09:10 05/08/21 20:40 Temperature 97.6 F 97.5 F Pulse Rate 98 99 Respiratory Rate 18 Blood Pressure 104/56 L 96/30 L Pulse Oximetry 98 BMI result Body Mass Index 31.3 Labs Results: 04/24/21 14:16 04/26/21 08:04 Labs: Laboratory Results - last 48 hr 04/28/21 08:13 Free Estradiol 1.71 Total Estradiol 91 Free Cortisol 0.95 H Medications Medications Current Medications Al Hydroxide/Mg Hydroxide (Magnesium Hydrox/Alum Hydrox 30 Ml Oral.Susp) 30 ml PO Q6H PRN PRN Reason: Heartburn/Nausea Aripiprazole (Aripiprazole Er 400 Mg Suser.Syr) 400 mg IM Q28D [facility] Last Admin: 05/08/21 10:01 Dose: 400 mg Documented by: Clonidine HCl (Clonidine Hcl 0.1 Mg Tablet) 0.1 mg PO DAILY FROILAN; Protocol Last Admin: 05/08/21 10:16 Dose: 0.1 mg Documented by: Hydroxyzine HCl (Hydroxyzine Hcl 25 Mg Tablet) 25 mg PO TID PRN PRN Reason: Anxiety Last Admin: 05/04/21 19:40 Dose: 25 mg Documented by: Hydroxyzine HCl (Hydroxyzine Hcl 50 Mg Tablet) 50 mg PO BEDTIME FROILAN Last Admin: 05/08/21 22:03 Dose: 50 mg Documented by: Lamotrigine (Lamotrigine 25 Mg Tablet) 125 mg PO BEDTIME FROILAN Last Admin: 05/08/21 22:02 Dose: 125 mg Documented by: Lorazepam (Lorazepam 1 Mg Tablet) 1 mg PO Q6H PRN PRN Reason: anxiety Last Admin: 05/07/21 17:17 Dose: 1 mg Documented by: Magnesium Hydroxide (Milk Of Magnesia 30 Ml Oral.Susp) 30 ml PO DAILY PRN PRN Reason: Constipation Mirtazapine (Mirtazapine 7.5 Mg Tablet) 22.5 mg PO BEDTIME FROILAN Last Admin: 05/08/21 22:04 Dose: 22.5 mg Documented by: Ondansetron HCl (Ondansetron Odt 4 Mg Tab.Rapdis) 4 mg TRANSLINGU DAILY PRN PRN Reason: Nausea Last Admin: 05/01/21 09:01 Dose: 4 mg Documented by: Ondansetron HCl (Ondansetron Odt 8 Mg Tab.Rapdis) 8 mg TRANSLINGU BEDTIME [facility]AN Last Admin: 05/08/21 22:05 Dose: 8 mg Documented by: Quetiapine Fumarate (Quetiapine Fumarate 100 Mg Tablet) 100 mg PO BEDTIME FROILAN Last Admin: 05/08/21 22:06 Dose: 100 mg Documented by: Risperidone (Risperidone 1 Mg Tablet) 1 mg PO BID PRN PRN Reason: grounding support Last Admin: 05/07/21 17:17 Dose: 1 mg Documented by: Trazodone HCl (Trazodone Hcl 100 Mg Tablet) 300 mg PO BEDTIME FROILAN Last Admin: 05/08/21 22:06 Dose: 300 mg Documented by: Allergies Allergies Allergy/AdvReac Type Severity Reaction Status Date / Time metoclopramide [From Reglan] Allergy Muscle Verified 01/08/21 20:46 cramps haloperidol [From Haldol] AdvReac Severe Dystonia Verified 01/08/21 20:46 prazosin AdvReac Severe Abdominal Verified 04/05/21 10:55 Pain sucralfate [From Carafate] AdvReac Severe vomiting Verified 01/08/21 20:46 band-aids AdvReac Intermediate skin Uncoded 02/04/21 17:52 irritation Assessment & Plan Assessment & Plan (1) PTSD (post-traumatic stress disorder): Status: Acute Code(s): F43.10 - Post-traumatic stress disorder, unspecified (2) IBS (irritable bowel syndrome): Status: Acute Code(s): K58.9 - Irritable bowel syndrome without diarrhea Plan 25 yo female, history of PTSD, Schizoaffective Disorder, presents from respite with increasing SI. Plan: Review of diagnostics CT medications as per previous admission Collect collateral history Liase with respite 04/27/21 Continue current regime Diagnostics for [facility] appt. Assist pt in distress tolerance. 04/29/21 Continue current regime. Tolerating changes made 04/28/21. Encourage pt to attend OP psychotherapy, DBT focused treatment to re-enforce skills for managing trauma work. 04/30/21: Discussed trialing klonopin 1 mg QHS PRN for sleep aid, however also reviewed that benzodiazepines are not the medication of choice for PTSD. Will weigh risks and benefits upon trial. 05/03 no changes to med regimen remains on q5 05/06/21 Continue current plan of care 05/07/21 Continue current regime Encouraged to accept Abilify Maintana on 05/08/21. Discussion of chosing a therapist, interviewing potential therapists. Pt to consider. 05/08/21 Schedule Seroquel at [facility] per pt request Mood charting to begin next week. 05/09/2021: Continue current regimen and plans. No changes were made today I spent minutes with the patient and/or on the patient floor today, greater than?50% of which was spent counseling/coordinating care. Reason for contiued inpatient stay Substantial Risk for: other
[2021-05-09] MEDS: cloNIDine HCL 0.1 MG TABLET PO (09:01)
[2021-05-09 09:02] VITALS: BP 100/57; PULSE 90; RESP 18; TEMP 36.2; O2SAT 99
[2021-05-09 17:50] VITALS: BP 103/57; PULSE 81; RESP 16; TEMP 37.2; O2SAT 99
[2021-05-09] MEDS: Ondansetron ODT 8 MG TAB.RAPDIS TRANSLINGU (20:08)
[2021-05-09] MEDS: hydrOXYzine HCL 50 MG TABLET PO (20:11)
[2021-05-09] MEDS: lamoTRIgine 25 MG TABLET 125 MG PO (20:11)
[2021-05-09] MEDS: QUEtiapine Fumarate 100 MG TABLET PO (20:11)
[2021-05-09] MEDS: Mirtazapine 7.5 MG TABLET 22.5 MG PO (20:11)
[2021-05-09] MEDS: traZODone HCL 100 MG TABLET 300 MG PO (20:12)
[2021-05-10] MEDS: cloNIDine HCL 0.1 MG TABLET PO (08:55)
[2021-05-10 08:59] VITALS: BP 129/58; PULSE 114; RESP 18; TEMP 36.7; O2SAT 99
--- NOTE | 2021-05-10 09:22 | HO.PSYCHPN ---
Subjective Subjective Date of Service: 05/10/21 Reason For Visit: PTSD Subjective Notes: Conditional Voluntary Interim History: Patient was seen and discussed in rounds today. Records were reviewed. She has been visible in but mostly isolative. She is exhibiting better affect with improvements. She is still anxious. She is med compliant. No complaints or side effects. Eating and sleeping adequately. No changes were made today Medication Compliance: Yes Side effects from medications: No Review of Systems Psychiatric: Reports abnormal sleep pattern, Reports anxiety, Reports depression, Reports hopelessness, Reports anhedonia, Reports mood swings and Reports suicidal ideation Mental Status Exam Mental Status Exam Patient Appearance: Appropriate Patient Orientation: Person, Place, Time and Situation Level of Consciousness: Alert Patient Behavior: Appropriate, Talkative, Cooperative, Fearful, Distractible and Good Eye Contact Mood Description: Depressed Affect Description: Flat Patient Cognition Impaired: No Ability to Follow Directions: Good Speech Pattern: Clear, Perseverating, Appropriate, Spontaneous Speech, Coherent and Soft-Spoken Memory Description: Intact Hallucinations: None Delusions: Not Present Perceptual Disturbances: Depersonalization and Derealization Thought Process: Rumination Thought Content: positive for Intact, positive for Perseveration and positive for Suicidal Ideation Depressive Symptoms: Insomnia, Difficulty Sleeping, Thoughts of /Suicide and Difficulty Concentrating Judgement: Fair Diagnostics Vital Signs (24Hr): Vital Signs - 24 hr 05/09/21 17:50 05/10/21 08:59 Temperature 99.0 F 98.0 F Pulse Rate 81 114 H Respiratory Rate 16 18 Blood Pressure 103/57 L 129/58 L Pulse Oximetry 99 99 BMI result Body Mass Index 31.3 Labs Results: 04/24/21 14:16 04/26/21 08:04 Labs: Laboratory Results - last 48 hr 04/28/21 08:13 Free Cortisol 0.95 H Medications Medications Current Medications Al Hydroxide/Mg Hydroxide (Magnesium Hydrox/Alum Hydrox 30 Ml Oral.Susp) 30 ml PO Q6H PRN PRN Reason: Heartburn/Nausea Aripiprazole (Aripiprazole Er 400 Mg Suser.Syr) 400 mg IM Q28D [facility] Last Admin: 05/08/21 10:01 Dose: 400 mg Documented by: Clonidine HCl (Clonidine Hcl 0.1 Mg Tablet) 0.1 mg PO DAILY [facility]; Protocol Last Admin: 05/10/21 08:55 Dose: 0.1 mg Documented by: Hydroxyzine HCl (Hydroxyzine Hcl 25 Mg Tablet) 25 mg PO TID PRN PRN Reason: Anxiety Last Admin: 05/04/21 19:40 Dose: 25 mg Documented by: Hydroxyzine HCl (Hydroxyzine Hcl 50 Mg Tablet) 50 mg PO BEDTIME [facility] Last Admin: 05/09/21 20:11 Dose: 50 mg Documented by: Lamotrigine (Lamotrigine 25 Mg Tablet) 125 mg PO BEDTIME [facility] Last Admin: 05/09/21 20:11 Dose: 125 mg Documented by: Lorazepam (Lorazepam 1 Mg Tablet) 1 mg PO Q6H PRN PRN Reason: anxiety Last Admin: 05/07/21 17:17 Dose: 1 mg Documented by: Magnesium Hydroxide (Milk Of Magnesia 30 Ml Oral.Susp) 30 ml PO DAILY PRN PRN Reason: Constipation Mirtazapine (Mirtazapine 7.5 Mg Tablet) 22.5 mg PO BEDTIME [facility] Last Admin: 05/09/21 20:11 Dose: 22.5 mg Documented by: Ondansetron HCl (Ondansetron Odt 4 Mg Tab.Rapdis) 4 mg TRANSLINGU DAILY PRN PRN Reason: Nausea Last Admin: 05/01/21 09:01 Dose: 4 mg Documented by: Ondansetron HCl (Ondansetron Odt 8 Mg Tab.Rapdis) 8 mg TRANSLINGU BEDTIME [facility] Last Admin: 05/09/21 20:08 Dose: 8 mg Documented by: Quetiapine Fumarate (Quetiapine Fumarate 100 Mg Tablet) 100 mg PO BEDTIME [facility] Last Admin: 05/09/21 20:11 Dose: 100 mg Documented by: Risperidone (Risperidone 1 Mg Tablet) 1 mg PO BID PRN PRN Reason: grounding support Last Admin: 05/07/21 17:17 Dose: 1 mg Documented by: Trazodone HCl (Trazodone Hcl 100 Mg Tablet) 300 mg PO BEDTIME [facility] Last Admin: 05/09/21 20:12 Dose: 300 mg Documented by: Allergies Allergies Allergy/AdvReac Type Severity Reaction Status Date / Time metoclopramide [From Reglan] Allergy Muscle Verified 01/08/21 20:46 cramps haloperidol [From Haldol] AdvReac Severe Dystonia Verified 01/08/21 20:46 prazosin AdvReac Severe Abdominal Verified 04/05/21 10:55 Pain sucralfate [From Carafate] AdvReac Severe vomiting Verified 01/08/21 20:46 band-aids AdvReac Intermediate skin Uncoded 02/04/21 17:52 irritation Assessment & Plan Assessment & Plan (1) PTSD (post-traumatic stress disorder): Status: Acute Code(s): F43.10 - Post-traumatic stress disorder, unspecified (2) IBS (irritable bowel syndrome): Status: Acute Code(s): K58.9 - Irritable bowel syndrome without diarrhea Plan 25 yo female, history of PTSD, Schizoaffective Disorder, presents from respite with increasing SI. Plan: Review of diagnostics CT medications as per previous admission Collect collateral history Liase with respite 04/27/21 Continue current regime Diagnostics for [facility] appt. Assist pt in distress tolerance. 04/29/21 Continue current regime. Tolerating changes made 04/28/21. Encourage pt to attend OP psychotherapy, DBT focused treatment to re-enforce skills for managing trauma work. 04/30/21: Discussed trialing klonopin 1 mg QHS PRN for sleep aid, however also reviewed that benzodiazepines are not the medication of choice for PTSD. Will weigh risks and benefits upon trial. 05/03 no changes to med regimen remains on q5 05/06/21 Continue current plan of care 05/07/21 Continue current regime Encouraged to accept Abilify Maintana on 05/08/21. Discussion of chosing a therapist, interviewing potential therapists. Pt to consider. 05/08/21 Schedule Seroquel at HS per pt request Mood charting to begin next week. 05/09/2021: Continue current regimen and plans. No changes were made today 05/10/2021: Continue current plans and regimen. No changes today I spent minutes with the patient and/or on the patient floor today, greater than?50% of which was spent counseling/coordinating care. Reason for contiued inpatient stay Substantial Risk for: other
[2021-05-10 20:25] VITALS: BP 125/65; PULSE 112; RESP 18; TEMP 36.4; O2SAT 100
[2021-05-10] MEDS: hydrOXYzine HCL 50 MG TABLET PO (20:47)
[2021-05-10] MEDS: Ondansetron ODT 8 MG TAB.RAPDIS TRANSLINGU (20:47)
[2021-05-10] MEDS: traZODone HCL 100 MG TABLET 300 MG PO (20:48)
[2021-05-10] MEDS: lamoTRIgine 25 MG TABLET 125 MG PO (20:48)
[2021-05-10] MEDS: Mirtazapine 7.5 MG TABLET 22.5 MG PO (20:48)
[2021-05-10] MEDS: QUEtiapine Fumarate 100 MG TABLET PO (20:48)
[2021-05-10] MEDS: LORazepam 1 MG TABLET PO (23:24)
--- NOTE | 2021-05-11 09:26 | PC.NURSE ---
Addendum entered by SCARLETT Ocampo 05/11/21 09:29: WRONG PATIENT. PT NEVER HAD A 3-DAY NOTICE. Original Note: Pt retracted 3-day notice on 05/11/2021. RN, and SW are all aware.
--- NOTE | 2021-05-11 11:05 | HO.PSYCHPN ---
Subjective Subjective Date of Service: 05/11/21 Reason For Visit: PTSD Interim History: Review of weekend symptoms, asks if we believe her to have autism. Noted that during the [employer] parade sx of increase sensitivity to sound, siren, music, yelling. Relates this to difficulties experienced in school, reviewed her IEP experiences with dyslexia and ADHD along with the sensory difficulties she has when showering. Medication Compliance: Yes Side effects from medications: No Attending Groups: Intermittent Review of Systems Acute medical concerns: No Medical Review of Systems: unchanged Review of Systems Psychiatric: Reports abnormal sleep pattern, Reports anxiety, Reports depression, Reports hopelessness, Reports irritability, Reports mood swings and Reports suicidal ideation Mental Status Exam Mental Status Exam Patient Appearance: Appropriate Patient Orientation: Person, Place, Time and Situation Level of Consciousness: Alert Patient Behavior: Talkative and Good Eye Contact Mood Description: Depressed Affect Description: Flat Patient Cognition Impaired: No Ability to Follow Directions: Good Speech Pattern: Spontaneous Speech Memory Description: Episodic Impaired Hallucinations: None Delusions: Paranoid Ideation Perceptual Disturbances: Depersonalization and Derealization Thought Process: Intact Thought Content: positive for Intact and positive for Suicidal Ideation Depressive Symptoms: Increased Anxiety, Insomnia, Difficulty Sleeping and Thoughts of /Suicide Judgement: Good Diagnostics Vital Signs (24Hr): Vital Signs - 24 hr 05/10/21 20:25 Temperature 97.6 F Pulse Rate 112 H Respiratory Rate 18 Blood Pressure 125/65 Pulse Oximetry 100 BMI result Body Mass Index 31.3 Labs Results: 04/24/21 14:16 04/26/21 08:04 Medications Medications Current Medications Al Hydroxide/Mg Hydroxide (Magnesium Hydrox/Alum Hydrox 30 Ml Oral.Susp) 30 ml PO Q6H PRN PRN Reason: Heartburn/Nausea Aripiprazole (Aripiprazole Er 400 Mg Suser.Syr) 400 mg IM Q28D [facility] Last Admin: 05/08/21 10:01 Dose: 400 mg Documented by: Clonidine HCl (Clonidine Hcl 0.1 Mg Tablet) 0.1 mg PO DAILY [facility]; Protocol Last Admin: 05/11/21 09:59 Dose: Not Given Documented by: Hydroxyzine HCl (Hydroxyzine Hcl 25 Mg Tablet) 25 mg PO TID PRN PRN Reason: Anxiety Last Admin: 05/04/21 19:40 Dose: 25 mg Documented by: Hydroxyzine HCl (Hydroxyzine Hcl 50 Mg Tablet) 50 mg PO BEDTIME [facility] Last Admin: 05/10/21 20:47 Dose: 50 mg Documented by: Lamotrigine (Lamotrigine 25 Mg Tablet) 125 mg PO BEDTIME [facility] Last Admin: 05/10/21 20:48 Dose: 125 mg Documented by: Lorazepam (Lorazepam 1 Mg Tablet) 1 mg PO Q6H PRN PRN Reason: anxiety Last Admin: 05/10/21 23:24 Dose: 1 mg Documented by: Magnesium Hydroxide (Milk Of Magnesia 30 Ml Oral.Susp) 30 ml PO DAILY PRN PRN Reason: Constipation Mirtazapine (Mirtazapine 7.5 Mg Tablet) 22.5 mg PO BEDTIME [facility] Last Admin: 05/10/21 20:48 Dose: 22.5 mg Documented by: Ondansetron HCl (Ondansetron Odt 4 Mg Tab.Rapdis) 4 mg TRANSLINGU DAILY PRN PRN Reason: Nausea Last Admin: 05/01/21 09:01 Dose: 4 mg Documented by: Ondansetron HCl (Ondansetron Odt 8 Mg Tab.Rapdis) 8 mg TRANSLINGU BEDTIME [facility] Last Admin: 05/10/21 20:47 Dose: 8 mg Documented by: Quetiapine Fumarate (Quetiapine Fumarate 100 Mg Tablet) 100 mg PO BEDTIME [facility] Last Admin: 05/10/21 20:48 Dose: 100 mg Documented by: Risperidone (Risperidone 1 Mg Tablet) 1 mg PO BID PRN PRN Reason: grounding support Last Admin: 05/07/21 17:17 Dose: 1 mg Documented by: Trazodone HCl (Trazodone Hcl 100 Mg Tablet) 300 mg PO BEDTIME [facility] Last Admin: 05/10/21 20:48 Dose: 300 mg Documented by: Allergies Allergies Allergy/AdvReac Type Severity Reaction Status Date / Time metoclopramide [From Reglan] Allergy Muscle Verified 01/08/21 20:46 cramps haloperidol [From Haldol] AdvReac Severe Dystonia Verified 01/08/21 20:46 prazosin AdvReac Severe Abdominal Verified 04/05/21 10:55 Pain sucralfate [From Carafate] AdvReac Severe vomiting Verified 01/08/21 20:46 band-aids AdvReac Intermediate skin Uncoded 12/15/21 17:52 irritation Assessment & Plan Assessment & Plan (1) PTSD (post-traumatic stress disorder): Status: Acute Code(s): F43.10 - Post-traumatic stress disorder, unspecified (2) IBS (irritable bowel syndrome): Status: Acute Code(s): K58.9 - Irritable bowel syndrome without diarrhea Plan 25 yo female, history of PTSD, Schizoaffective Disorder, presents from respite with increasing SI. Plan: Review of diagnostics CT medications as per previous admission Collect collateral history Liase with respite 04/27/21 Continue current regime Diagnostics for [facility] appt. Assist pt in distress tolerance. 04/29/21 Continue current regime. Tolerating changes made 04/28/21. Encourage pt to attend OP psychotherapy, DBT focused treatment to re-enforce skills for managing trauma work. 04/30/21: Discussed trialing klonopin 1 mg QHS PRN for sleep aid, however also reviewed that benzodiazepines are not the medication of choice for PTSD. Will weigh risks and benefits upon trial. 05/03 no changes to med regimen remains on q5 05/06/21 Continue current plan of care 05/07/21 Continue current regime Encouraged to accept Abilify Maintana on 05/08/21. Discussion of chosing a therapist, interviewing potential therapists. Pt to consider. 05/08/21 Schedule Seroquel at HS per pt request Mood charting to begin next week. 05/09/2021: Continue current regimen and plans. No changes were made today 05/10/2021: Continue current plans and regimen. No changes today 05/11/21: Continue current plan. Reports Seroquel is more helpful with sleep. Discussed pt concerns regarding autism. I spent minutes with the patient and/or on the patient floor today, greater than?50% of which was spent counseling/coordinating care. Patient educated on: diagnosis and therapeutic strategies Informed Consent: understands and further education needed Reason for contiued inpatient stay Substantial Risk for: harm to self and rapid decompensation
[2021-05-11] MEDS: cloNIDine HCL 0.1 MG TABLET PO (12:38)
[2021-05-11 18:00] VITALS: BP 109/63; PULSE 94; TEMP 36.8; O2SAT 100
[2021-05-11] MEDS: risperiDONE 1 MG TABLET PO (20:17)
[2021-05-11] MEDS: LORazepam 1 MG TABLET PO (20:17)
[2021-05-11] MEDS: Mirtazapine 7.5 MG TABLET 22.5 MG PO (21:46)
[2021-05-11] MEDS: QUEtiapine Fumarate 100 MG TABLET PO (21:46)
[2021-05-11] MEDS: Ondansetron ODT 8 MG TAB.RAPDIS TRANSLINGU (21:46)
[2021-05-11] MEDS: traZODone HCL 100 MG TABLET 300 MG PO (21:47)
[2021-05-11] MEDS: hydrOXYzine HCL 50 MG TABLET PO (21:47)
[2021-05-11] MEDS: lamoTRIgine 25 MG TABLET 125 MG PO (21:47)
[2021-05-12 06:00] VITALS: BP 99/51; PULSE 79; RESP 16; TEMP 36.5; O2SAT 99
[2021-05-12 09:25] VITALS: BP 105/60; PULSE 81; TEMP 37
[2021-05-12] MEDS: cloNIDine HCL 0.1 MG TABLET PO (09:25)
[2021-05-12] MEDS: LORazepam 1 MG TABLET PO (16:32)
--- NOTE | 2021-05-12 18:43 | HO.PSYCHPN ---
Subjective Subjective Date of Service: 05/12/21 Reason For Visit: PTSD Interim History: Delaney reports feeling tired today. She is attempting to nap when we met. Discussed possibly having a sleep study to further assess sleeping difficulties. She will consider. Finds Seroquel helpful for sleep, however, continues to struggle to have a sustained time of sleep each evening.. Medication Compliance: Yes Side effects from medications: No Attending Groups: Intermittent Review of Systems Acute medical concerns: No Medical Review of Systems: unchanged Review of Systems Psychiatric: Reports abnormal sleep pattern, Reports anxiety, Reports depression, Reports hopelessness, Reports irritability, Reports mood swings and Reports suicidal ideation Mental Status Exam Mental Status Exam Patient Appearance: Appropriate Patient Orientation: Person, Place, Time and Situation Level of Consciousness: Alert Patient Behavior: Talkative and Good Eye Contact Mood Description: Depressed Affect Description: Flat Patient Cognition Impaired: No Ability to Follow Directions: Good Speech Pattern: Spontaneous Speech Memory Description: Episodic Impaired Hallucinations: None Delusions: Paranoid Ideation Perceptual Disturbances: Depersonalization and Derealization Thought Process: Intact Thought Content: positive for Intact and positive for Suicidal Ideation Depressive Symptoms: Increased Anxiety, Insomnia, Difficulty Sleeping and Thoughts of /Suicide Judgement: Good Diagnostics Vital Signs (24Hr): Vital Signs - 24 hr 05/12/21 06:00 05/12/21 09:25 Temperature 97.7 F 98.6 F Pulse Rate 79 81 Respiratory Rate 16 Blood Pressure 99/51 L 105/60 Pulse Oximetry 99 BMI result Body Mass Index 31.3 Labs Results: 04/24/21 14:16 04/26/21 08:04 Medications Medications Current Medications Al Hydroxide/Mg Hydroxide (Magnesium Hydrox/Alum Hydrox 30 Ml Oral.Susp) 30 ml PO Q6H PRN PRN Reason: Heartburn/Nausea Aripiprazole (Aripiprazole Er 400 Mg Suser.Syr) 400 mg IM Q28D [facility] Last Admin: 05/08/21 10:01 Dose: 400 mg Documented by: Clonidine HCl (Clonidine Hcl 0.1 Mg Tablet) 0.1 mg PO DAILY [facility]; Protocol Last Admin: 05/12/21 09:25 Dose: 0.1 mg Documented by: Hydroxyzine HCl (Hydroxyzine Hcl 25 Mg Tablet) 25 mg PO TID PRN PRN Reason: Anxiety Last Admin: 05/04/21 19:40 Dose: 25 mg Documented by: Hydroxyzine HCl (Hydroxyzine Hcl 50 Mg Tablet) 50 mg PO BEDTIME [facility] Last Admin: 05/11/21 21:47 Dose: 50 mg Documented by: Lamotrigine (Lamotrigine 25 Mg Tablet) 125 mg PO BEDTIME [facility] Last Admin: 05/11/21 21:47 Dose: 125 mg Documented by: Lorazepam (Lorazepam 1 Mg Tablet) 1 mg PO Q6H PRN PRN Reason: anxiety Last Admin: 05/12/21 16:32 Dose: 1 mg Documented by: Magnesium Hydroxide (Milk Of Magnesia 30 Ml Oral.Susp) 30 ml PO DAILY PRN PRN Reason: Constipation Mirtazapine (Mirtazapine 7.5 Mg Tablet) 22.5 mg PO BEDTIME [facility] Last Admin: 05/11/21 21:46 Dose: 22.5 mg Documented by: Ondansetron HCl (Ondansetron Odt 4 Mg Tab.Rapdis) 4 mg TRANSLINGU DAILY PRN PRN Reason: Nausea Last Admin: 05/01/21 09:01 Dose: 4 mg Documented by: Ondansetron HCl (Ondansetron Odt 8 Mg Tab.Rapdis) 8 mg TRANSLINGU BEDTIME [facility] Last Admin: 05/11/21 21:46 Dose: 8 mg Documented by: Quetiapine Fumarate (Quetiapine Fumarate 100 Mg Tablet) 100 mg PO BEDTIME [facility] Last Admin: 05/11/21 21:46 Dose: 100 mg Documented by: Risperidone (Risperidone 1 Mg Tablet) 1 mg PO BID PRN PRN Reason: grounding support Last Admin: 05/11/21 20:17 Dose: 1 mg Documented by: Trazodone HCl (Trazodone Hcl 100 Mg Tablet) 300 mg PO BEDTIME [facility] Last Admin: 05/11/21 21:47 Dose: 300 mg Documented by: Allergies Allergies Allergy/AdvReac Type Severity Reaction Status Date / Time metoclopramide [From Reglan] Allergy Muscle Verified 01/08/21 20:46 cramps haloperidol [From Haldol] AdvReac Severe Dystonia Verified 01/08/21 20:46 prazosin AdvReac Severe Abdominal Verified 04/05/21 10:55 Pain sucralfate [From Carafate] AdvReac Severe vomiting Verified 01/08/21 20:46 band-aids AdvReac Intermediate skin Uncoded 02/04/21 17:52 irritation Assessment & Plan Assessment & Plan (1) PTSD (post-traumatic stress disorder): Status: Acute Code(s): F43.10 - Post-traumatic stress disorder, unspecified (2) IBS (irritable bowel syndrome): Status: Acute Code(s): K58.9 - Irritable bowel syndrome without diarrhea Plan 25 yo female, history of PTSD, Schizoaffective Disorder, presents from respite with increasing SI. Plan: Review of diagnostics CT medications as per previous admission Collect collateral history Liase with respite 04/27/21 Continue current regime Diagnostics for [facility] appt. Assist pt in distress tolerance. 04/29/21 Continue current regime. Tolerating changes made 04/28/21. Encourage pt to attend OP psychotherapy, DBT focused treatment to re-enforce skills for managing trauma work. 04/30/21: Discussed trialing klonopin 1 mg QHS PRN for sleep aid, however also reviewed that benzodiazepines are not the medication of choice for PTSD. Will weigh risks and benefits upon trial. 05/03 no changes to med regimen remains on q5 05/06/21 Continue current plan of care 05/07/21 Continue current regime Encouraged to accept Abilify Maintana on 05/08/21. Discussion of chosing a therapist, interviewing potential therapists. Pt to consider. 05/08/21 Schedule Seroquel at HS per pt request Mood charting to begin next week. 05/09/2021: Continue current regimen and plans. No changes were made today 05/10/2021: Continue current plans and regimen. No changes today 05/11/21: Continue current plan. Reports Seroquel is more helpful with sleep. Discussed pt concerns regarding autism. 05/12/21: Continue current plan of care. I spent minutes with the patient and/or on the patient floor today, greater than?50% of which was spent counseling/coordinating care. Patient educated on: medication risk/benefits, therapeutic strategies and medical condition Informed Consent: understands and further education needed Reason for contiued inpatient stay Substantial Risk for: harm to self and rapid decompensation
[2021-05-12] MEDS: traZODone HCL 100 MG TABLET 300 MG PO (21:21)
[2021-05-12] MEDS: hydrOXYzine HCL 50 MG TABLET PO (21:21)
[2021-05-12] MEDS: QUEtiapine Fumarate 100 MG TABLET PO (21:22)
[2021-05-12] MEDS: Mirtazapine 7.5 MG TABLET 22.5 MG PO (21:22)
[2021-05-12] MEDS: lamoTRIgine 25 MG TABLET 125 MG PO (21:22)
[2021-05-12] MEDS: Ondansetron ODT 8 MG TAB.RAPDIS TRANSLINGU (21:22)
[2021-05-12 21:50] VITALS: BP 119/80; PULSE 96; TEMP 36.7; O2SAT 99
[2021-05-13 09:05] VITALS: BP 105/60; PULSE 93; RESP 18; TEMP 36.6; O2SAT 98
[2021-05-13] MEDS: cloNIDine HCL 0.1 MG TABLET PO (09:07)
--- NOTE | 2021-05-13 10:41 | P.PNPSI_ITS ---
Subjective Subjective Date of Service: 05/13/21 Reason For Visit: PTSD Interim History: Discussed sleep issues and symptoms. Reports by history, Prazosin is effective, however, when taken, it was so effective, she awoke with a hyperactive startle and was frightened. Discussed, when possible sleeping closer to nursing station and if that would help with her ability to feel safe, observed and better able to tolerate the medication. She believes it would, and will consider. Discussed looking for a therapist and considering making another appt with the therapist she had cancelled with earlier this year. Discussed EMDR possibilities as well for the future. Medication Compliance: Yes Side effects from medications: No Attending Groups: Intermittent Review of Systems Acute medical concerns: No Medical Review of Systems: unchanged Review of Systems Psychiatric: Reports abnormal sleep pattern, Reports anxiety, Reports depression, Reports hopelessness, Reports irritability, Reports mood swings and Reports suicidal ideation Mental Status Exam Mental Status Exam Patient Appearance: Appropriate Patient Orientation: Person, Place, Time and Situation Level of Consciousness: Alert Patient Behavior: Talkative and Good Eye Contact Mood Description: Depressed Affect Description: Flat Patient Cognition Impaired: No Ability to Follow Directions: Good Speech Pattern: Spontaneous Speech Memory Description: Episodic Impaired Hallucinations: None Delusions: Paranoid Ideation Perceptual Disturbances: Depersonalization and Derealization Thought Process: Intact Thought Content: positive for Intact and positive for Suicidal Ideation Depressive Symptoms: Increased Anxiety, Insomnia, Difficulty Sleeping and Thoughts of /Suicide Judgement: Good Diagnostics Vital Signs (24Hr): Vital Signs - 24 hr 05/12/21 21:50 05/13/21 09:05 Temperature 98.1 F 97.9 F Pulse Rate 96 93 Respiratory Rate 18 Blood Pressure 119/80 105/60 Pulse Oximetry 99 98 BMI result Body Mass Index 31.3 Labs Results: 04/24/21 14:16 04/26/21 08:04 Medications Medications Current Medications Al Hydroxide/Mg Hydroxide (Magnesium Hydrox/Alum Hydrox 30 Ml Oral.Susp) 30 ml PO Q6H PRN PRN Reason: Heartburn/Nausea Aripiprazole (Aripiprazole Er 400 Mg Suser.Syr) 400 mg IM Q28D [facility] Last Admin: 05/08/21 10:01 Dose: 400 mg Documented by: Clonidine HCl (Clonidine Hcl 0.1 Mg Tablet) 0.1 mg PO DAILY [facility]; Protocol Last Admin: 05/13/21 09:07 Dose: 0.1 mg Documented by: Hydroxyzine HCl (Hydroxyzine Hcl 25 Mg Tablet) 25 mg PO TID PRN PRN Reason: Anxiety Last Admin: 05/04/21 19:40 Dose: 25 mg Documented by: Hydroxyzine HCl (Hydroxyzine Hcl 50 Mg Tablet) 50 mg PO BEDTIME [facility] Last Admin: 05/12/21 21:21 Dose: 50 mg Documented by: Lamotrigine (Lamotrigine 25 Mg Tablet) 125 mg PO BEDTIME [facility] Last Admin: 05/12/21 21:22 Dose: 125 mg Documented by: Lorazepam (Lorazepam 1 Mg Tablet) 1 mg PO Q6H PRN PRN Reason: anxiety Last Admin: 05/12/21 16:32 Dose: 1 mg Documented by: Magnesium Hydroxide (Milk Of Magnesia 30 Ml Oral.Susp) 30 ml PO DAILY PRN PRN Reason: Constipation Mirtazapine (Mirtazapine 7.5 Mg Tablet) 22.5 mg PO BEDTIME [facility] Last Admin: 05/12/21 21:22 Dose: 22.5 mg Documented by: Ondansetron HCl (Ondansetron Odt 4 Mg Tab.Rapdis) 4 mg TRANSLINGU DAILY PRN PRN Reason: Nausea Last Admin: 05/01/21 09:01 Dose: 4 mg Documented by: Ondansetron HCl (Ondansetron Odt 8 Mg Tab.Rapdis) 8 mg TRANSLINGU BEDTIME [facility] Last Admin: 05/12/21 21:22 Dose: 8 mg Documented by: Quetiapine Fumarate (Quetiapine Fumarate 100 Mg Tablet) 100 mg PO BEDTIME [facility] Last Admin: 05/12/21 21:22 Dose: 100 mg Documented by: Risperidone (Risperidone 1 Mg Tablet) 1 mg PO BID PRN PRN Reason: grounding support Last Admin: 05/11/21 20:17 Dose: 1 mg Documented by: Trazodone HCl (Trazodone Hcl 100 Mg Tablet) 300 mg PO BEDTIME [facility] Last Admin: 05/12/21 21:21 Dose: 300 mg Documented by: Allergies Allergies Allergy/AdvReac Type Severity Reaction Status Date / Time metoclopramide [From Reglan] Allergy Muscle Verified 01/08/21 20:46 cramps haloperidol [From Haldol] AdvReac Severe Dystonia Verified 01/08/21 20:46 prazosin AdvReac Severe Abdominal Verified 04/05/21 10:55 Pain sucralfate [From Carafate] AdvReac Severe vomiting Verified 01/08/21 20:46 band-aids AdvReac Intermediate skin Uncoded 02/04/21 17:52 irritation Assessment & Plan Assessment & Plan (1) PTSD (post-traumatic stress disorder): Status: Acute Code(s): F43.10 - Post-traumatic stress disorder, unspecified (2) IBS (irritable bowel syndrome): Status: Acute Code(s): K58.9 - Irritable bowel syndrome without diarrhea Plan 25 yo female, history of PTSD, Schizoaffective Disorder, presents from respite with increasing SI. Plan: Review of diagnostics CT medications as per previous admission Collect collateral history Liase with respite 04/27/21 Continue current regime Diagnostics for [facility] appt. Assist pt in distress tolerance. 04/29/21 Continue current regime. Tolerating changes made 04/28/21. Encourage pt to attend OP psychotherapy, DBT focused treatment to re-enforce skills for managing trauma work. 04/30/21: Discussed trialing klonopin 1 mg QHS PRN for sleep aid, however also reviewed that benzodiazepines are not the medication of choice for PTSD. Will weigh risks and benefits upon trial. 05/03 no changes to med regimen remains on q5 05/06/21 Continue current plan of care 05/07/21 Continue current regime Encouraged to accept Abilify Maintana on 05/08/21. Discussion of chosing a therapist, interviewing potential therapists. Pt to consider. 05/08/21 Schedule Seroquel at HS per pt request Mood charting to begin next week. 05/09/2021: Continue current regimen and plans. No changes were made today 05/10/2021: Continue current plans and regimen. No changes today 05/11/21: Continue current plan. Reports Seroquel is more helpful with sleep. Discussed pt concerns regarding autism. 05/12/21: Continue current plan of care. 05/13/21: Continue current plan of care. I spent minutes with the patient and/or on the patient floor today, greater than?50% of which was spent counseling/coordinating care. Informed Consent: understands Reason for contiued inpatient stay Substantial Risk for: harm to self and rapid decompensation
[2021-05-13] MEDS: Mirtazapine 7.5 MG TABLET 22.5 MG PO (20:41)
[2021-05-13] MEDS: lamoTRIgine 25 MG TABLET 125 MG PO (20:41)
[2021-05-13] MEDS: QUEtiapine Fumarate 100 MG TABLET PO (20:41)
[2021-05-13] MEDS: hydrOXYzine HCL 50 MG TABLET PO (20:41)
[2021-05-13] MEDS: traZODone HCL 100 MG TABLET 300 MG PO (20:41)
[2021-05-13] MEDS: Ondansetron ODT 8 MG TAB.RAPDIS TRANSLINGU (20:41)
[2021-05-13 20:55] VITALS: BP 119/71; PULSE 109; RESP 18; TEMP 36.6; O2SAT 99
[2021-05-14] MEDS: cloNIDine HCL 0.1 MG TABLET PO (09:41)
[2021-05-14 09:42] VITALS: BP 108/59; PULSE 84; RESP 18; TEMP 36.7; O2SAT 98
[2021-05-14] MEDS: LORazepam 1 MG TABLET PO (11:48)
[2021-05-14] MEDS: risperiDONE 1 MG TABLET PO (14:39)
[2021-05-14 18:00] VITALS: BP 109/68; PULSE 91; RESP 18; TEMP 36.5; O2SAT 98
--- NOTE | 2021-05-14 18:44 | HO.PSYCHPN ---
Subjective Subjective Date of Service: 05/14/21 Reason For Visit: PTSD Interim History: Reports an increase in insomnia due to room-mate snoring. Interested in sleeping in [address] when available as she feels safer if close to the team. Willing to trial Prazosin again as noted 05/13. Continued discussion regarding potential for attending out patient psychotherapy today. Medication Compliance: Yes Side effects from medications: No Attending Groups: Intermittent Review of Systems Acute medical concerns: No Medical Review of Systems: unchanged Review of Systems Psychiatric: Reports abnormal sleep pattern, Reports anxiety, Reports depression, Reports hopelessness, Reports irritability, Reports mood swings and Reports suicidal ideation Mental Status Exam Mental Status Exam Patient Appearance: Appropriate Patient Orientation: Person, Place, Time and Situation Level of Consciousness: Alert Patient Behavior: Talkative and Good Eye Contact Mood Description: Depressed Affect Description: Flat Patient Cognition Impaired: No Ability to Follow Directions: Good Speech Pattern: Spontaneous Speech Memory Description: Episodic Impaired Hallucinations: None Delusions: Paranoid Ideation Perceptual Disturbances: Depersonalization and Derealization Thought Process: Intact Thought Content: positive for Intact and positive for Suicidal Ideation Depressive Symptoms: Increased Anxiety, Insomnia, Difficulty Sleeping and Thoughts of /Suicide Judgement: Good Diagnostics Vital Signs (24Hr): Vital Signs - 24 hr 05/13/21 20:55 05/14/21 09:42 Temperature 97.8 F 98.1 F Pulse Rate 109 H 84 Respiratory Rate 18 18 Blood Pressure 119/71 108/59 L Pulse Oximetry 99 98 BMI result Body Mass Index 31.3 Labs Results: 04/24/21 14:16 04/26/21 08:04 Medications Medications Current Medications Al Hydroxide/Mg Hydroxide (Magnesium Hydrox/Alum Hydrox 30 Ml Oral.Susp) 30 ml PO Q6H PRN PRN Reason: Heartburn/Nausea Aripiprazole (Aripiprazole Er 400 Mg Suser.Syr) 400 mg IM Q28D [facility] Last Admin: 05/08/21 10:01 Dose: 400 mg Documented by: Clonidine HCl (Clonidine Hcl 0.1 Mg Tablet) 0.1 mg PO DAILY [facility]; Protocol Last Admin: 05/14/21 09:41 Dose: 0.1 mg Documented by: Hydroxyzine HCl (Hydroxyzine Hcl 25 Mg Tablet) 25 mg PO TID PRN PRN Reason: Anxiety Last Admin: 05/04/21 19:40 Dose: 25 mg Documented by: Hydroxyzine HCl (Hydroxyzine Hcl 50 Mg Tablet) 50 mg PO BEDTIME [facility] Last Admin: 05/13/21 20:41 Dose: 50 mg Documented by: Lamotrigine (Lamotrigine 25 Mg Tablet) 125 mg PO BEDTIME [facility] Last Admin: 05/13/21 20:41 Dose: 125 mg Documented by: Lorazepam (Lorazepam 1 Mg Tablet) 1 mg PO Q6H PRN PRN Reason: anxiety Last Admin: 05/14/21 11:48 Dose: 1 mg Documented by: Magnesium Hydroxide (Milk Of Magnesia 30 Ml Oral.Susp) 30 ml PO DAILY PRN PRN Reason: Constipation Mirtazapine (Mirtazapine 7.5 Mg Tablet) 22.5 mg PO BEDTIME [facility] Last Admin: 05/13/21 20:41 Dose: 22.5 mg Documented by: Ondansetron HCl (Ondansetron Odt 4 Mg Tab.Rapdis) 4 mg TRANSLINGU DAILY PRN PRN Reason: Nausea Last Admin: 05/01/21 09:01 Dose: 4 mg Documented by: Ondansetron HCl (Ondansetron Odt 8 Mg Tab.Rapdis) 8 mg TRANSLINGU BEDTIME [facility] Last Admin: 05/13/21 20:41 Dose: 8 mg Documented by: Quetiapine Fumarate (Quetiapine Fumarate 100 Mg Tablet) 100 mg PO BEDTIME [facility] Last Admin: 05/13/21 20:41 Dose: 100 mg Documented by: Risperidone (Risperidone 1 Mg Tablet) 1 mg PO BID PRN PRN Reason: grounding support Last Admin: 05/14/21 14:39 Dose: 1 mg Documented by: Trazodone HCl (Trazodone Hcl 100 Mg Tablet) 300 mg PO BEDTIME [facility] Last Admin: 05/13/21 20:41 Dose: 300 mg Documented by: Allergies Allergies Allergy/AdvReac Type Severity Reaction Status Date / Time metoclopramide [From Reglan] Allergy Muscle Verified 01/08/21 20:46 cramps haloperidol [From Haldol] AdvReac Severe Dystonia Verified 01/08/21 20:46 prazosin AdvReac Severe Abdominal Verified 04/05/21 10:55 Pain sucralfate [From Carafate] AdvReac Severe vomiting Verified 01/08/21 20:46 band-aids AdvReac Intermediate skin Uncoded 02/04/21 17:52 irritation Assessment & Plan Assessment & Plan (1) PTSD (post-traumatic stress disorder): Status: Acute Code(s): F43.10 - Post-traumatic stress disorder, unspecified (2) IBS (irritable bowel syndrome): Status: Acute Code(s): K58.9 - Irritable bowel syndrome without diarrhea Plan 25 yo female, history of PTSD, Schizoaffective Disorder, presents from respite with increasing SI. Plan: Review of diagnostics CT medications as per previous admission Collect collateral history Liase with respite 04/27/21 Continue current regime Diagnostics for [facility] appt. Assist pt in distress tolerance. 04/29/21 Continue current regime. Tolerating changes made 04/28/21. Encourage pt to attend OP psychotherapy, DBT focused treatment to re-enforce skills for managing trauma work. 04/30/21: Discussed trialing klonopin 1 mg QHS PRN for sleep aid, however also reviewed that benzodiazepines are not the medication of choice for PTSD. Will weigh risks and benefits upon trial. 05/03 no changes to med regimen remains on q5 05/06/21 Continue current plan of care 05/07/21 Continue current regime Encouraged to accept Abilify Maintana on 05/08/21. Discussion of chosing a therapist, interviewing potential therapists. Pt to consider. 05/08/21 Schedule Seroquel at HS per pt request Mood charting to begin next week. 05/09/2021: Continue current regimen and plans. No changes were made today 05/10/2021: Continue current plans and regimen. No changes today 05/11/21: Continue current plan. Reports Seroquel is more helpful with sleep. Discussed pt concerns regarding autism. 05/12/21: Continue current plan of care. 05/13/21: Continue current plan of care. 05/14/21: Pt is agreeable to OP psychotherapy. Hannah Proctor [facility] has reached out to former potential therapist via email to see if pt can go on the waiting list again. I spent minutes with the patient and/or on the patient floor today, greater than?50% of which was spent counseling/coordinating care. Patient educated on: therapeutic strategies Informed Consent: understands and further education needed Reason for contiued inpatient stay Substantial Risk for: harm to self, inability to function and rapid decompensation
[2021-05-14] MEDS: Ondansetron ODT 8 MG TAB.RAPDIS TRANSLINGU (20:12)
[2021-05-14] MEDS: traZODone HCL 100 MG TABLET 300 MG PO (20:18)
[2021-05-14] MEDS: hydrOXYzine HCL 50 MG TABLET PO (20:18)
[2021-05-14] MEDS: QUEtiapine Fumarate 100 MG TABLET PO (20:18)
[2021-05-14] MEDS: lamoTRIgine 25 MG TABLET 125 MG PO (20:18)
[2021-05-14] MEDS: Mirtazapine 7.5 MG TABLET 22.5 MG PO (20:18)
--- NOTE | 2021-05-15 | ECG_ITS ---
Test Reason : SEIZURES Blood Pressure : / mmHG Vent. Rate : 078 BPM Atrial Rate : 078 BPM P-R Int : 152 ms QRS Dur : 072 ms QT Int : 380 ms P-R-T Axes : 056 035 024 degrees QTc Int : 433 ms Normal sinus rhythm Normal ECG When compared with ECG of 24-APR-2021 14:13, No significant change was found Referred By: Joann White Electronically Signed By:MARILEE LOBATO MD
[2021-05-15] MEDS: LORazepam 1 MG TABLET PO ×2 (10:18→17:03)
[2021-05-15 11:14] VITALS: BP 104/54; PULSE 83; RESP 16; TEMP 36.3; O2SAT 96
[2021-05-15 11:44] LABS: MANUAL DIFF FLAG NO
[2021-05-15 11:46] LABS: Basophils Percent Auto 0.5 % (0-2); Eosinophils Absolute Auto 0.1 X10*3/uL (0.0-0.4); Eosinophils Percent Auto 1.2 % (0-4); Hematocrit 37.3 % (37.0-47.0); Hemoglobin 12.2 g/dl (12.0-16.0); Imm Gran Abs Auto 0.01 X10*3/uL (0.00-0.03); Imm Gran Pct Auto 0.2 % (0.0-0.4); Lymphocytes Absolute Auto 1.5 X10*3/uL (1.2-4.9); Lymphocytes Percent Auto 35.9 % (20-40); Mean Corpuscular HGB Conc 32.7 g/dl (31.0-35.0); Mean Corpuscular Hemoglobin 31.1 pg (27.0-33.0); Mean Corpuscular Volume 95.2 fL (80.0-98.0); Mean Platelet Volume 8.7 fL (9.4-12.3); Monocytes Absolute Auto 0.4 X10*3/uL (0.1-1.2); Monocytes Percent Auto 10.7 % (2-11); Neutrophils Absolute Auto 2.1 x10*3/uL (2.0-8.3); Neutrophils Percent Auto 51.5 % (45-73); Platelet Count 444 X10*3/uL (160-400); Red Blood Count 3.92 X10*6/uL (4.20-5.50); Red Cell Distribution Width 13.9 % (11.0-16.0); White Blood Count 4.1 X10*3/uL (4.8-10.8)
[2021-05-15 12:04] LABS: Alanine Aminotransferase 16 U/L (0-31); Albumin Level 4.1 g/dL (3.5-5.0); Alkaline Phosphatase 67 U/L (39-117); Anion Gap 12 (12-20); Aspartate Amino Transferase 14 U/L (5-31); Bilirubin Total 0.7 mg/dL (0.0-1.0); Blood Urea Nitrogen 15 mg/dL (9-16); Calcium 9.4 mg/dL (8.4-10.2); Carbon Dioxide 28 mmol/L (22-29); Chloride 102 mmol/L (96-108); Creatinine Clr Calc Pharmacy 123.2; Estimated Glomerular Filt Rate > 60; Glucose Random 89 mg/dL (60-115); Potassium 4.5 mmol/L (3.3-5.1); Sodium 137 mmol/L (135-145); Total Protein 7.3 g/dL (6.5-8.0)
--- NOTE | 2021-05-15 14:17 | HO.PSYCHPN ---
Subjective Subjective Date of Service: 05/15/21 Reason For Visit: PTSD Subjective Notes: Conditional Voluntary Healthcare Proxy: No Guardianship: No Medical Problems Affecting Mental Status: No Interim History: Delaney spent much of the day in bed, experiencing pseudoseizure symptoms. As these symptoms were lasting longer than our experience in the past, EKG, labs, hospitalist consult were completed. Discussed with Dr. Garcia-pt was standing on her bed when seen, able to balance, staring, able to bend her joints. CAT, EEG, and neurology follow up ordered. When seen by tw pt was resting in bed with eye mvts-she was non-verbal, but did respond to dialogue with soft facial gestures and increased attempts to listen/focus. Medication Compliance: Yes Side effects from medications: No Attending Groups: No Review of Systems Acute medical concerns: Yes Pseudoseizure activity Medical Review of Systems: unchanged Review of Systems Review of Systems Yes Unobtainable due to mental status Reports behavioral changes Psychiatric: Reports abnormal sleep pattern, Reports anxiety, Reports behavioral changes, Reports depression, Reports difficulty concentrating, Reports hopelessness, Reports anhedonia, Reports mood swings, Reports paranoia, Reports suicidal ideation and Reports other (pseudoseizure) Mental Status Exam Mental Status Exam Patient Appearance: Fatigued Patient Orientation: Person Level of Consciousness: Drowsy, Lethargic and Inappropriate (pseudoseizure sx present) Patient Behavior: Talkative (no verbal communication), Passive, Sedated, Confused and Poor Eye Contact Mood Description: Withdrawn Affect Description: Withdrawn Patient Cognition Impaired: Yes Ability to Follow Directions: Poor Speech Pattern: No Speech Memory Description: Remote Impaired, Immediate Impaired, Solar Power Installer Impaired, Episodic Impaired, Recent Impaired, Working Impaired and Semantic Impaired Hallucinations: None Delusions: Not Present Perceptual Disturbances: Depersonalization and Derealization Thought Process: Disoriented, Incoherent, Evasive and Confusion Thought Content: positive for Disoriented, positive for Poverty of Content and positive for Incoherent Depressive Symptoms: Insomnia and Difficulty Sleeping Abnormal Motor Activity Signs and Symptoms: Psychomotor Retardation Judgement: Poor Diagnostics Vital Signs (24Hr): Vital Signs - 24 hr 05/14/21 18:00 05/15/21 11:14 Temperature 97.7 F 97.4 F Pulse Rate 91 83 Respiratory Rate 18 16 Blood Pressure 109/68 104/54 L Pulse Oximetry 98 96 BMI result Body Mass Index 31.3 Labs Results: 05/15/21 11:24 05/15/21 11:24 Labs: Laboratory Results - last 48 hr 04/28/21 05/15/21 05/15/21 08:13 11:24 11:24 WBC 4.1 L RBC 3.92 L Hgb 12.2 Hct 37.3 MCV 95.2 MCH 31.1 MCHC 32.7 RDW 13.9 Plt Count 444 H MPV 8.7 L Immature Gran % (Auto) 0.2 Neut % (Auto) 51.5 Lymph % (Auto) 35.9 [place] % (Auto) 10.7 Eos % (Auto) 1.2 Baso % (Auto) 0.5 Lymph # (Auto) 1.5 [place] # (Auto) 0.4 Eos # (Auto) 0.1 Baso # (Auto) 0.0 Abs Immat Gran (auto) 0.01 Absolute Neuts (auto) 2.1 Absolute Nucleated RBC 0.000 Nucleated RBC % (auto) 0.0 Sodium 137 Potassium 4.5 Chloride 102 Carbon Dioxide 28 Anion Gap 12 BUN 15 Creatinine 0.78 Estim Creat Clear Calc 123.2 Estimated GFR > 60 Random Glucose 89 Calcium 9.4 Total Bilirubin 0.7 AST 14 ALT 16 Alkaline Phosphatase 67 Total Protein 7.3 Albumin 4.1 IGF Binding Protein-1 <5 L Medications Medications Current Medications Al Hydroxide/Mg Hydroxide (Magnesium Hydrox/Alum Hydrox 30 Ml Oral.Susp) 30 ml PO Q6H PRN PRN Reason: Heartburn/Nausea Aripiprazole (Aripiprazole Er 400 Mg Suser.Syr) 400 mg IM Q28D [facility] Last Admin: 05/08/21 10:01 Dose: 400 mg Documented by: Clonidine HCl (Clonidine Hcl 0.1 Mg Tablet) 0.1 mg PO DAILY [facility]; Protocol Last Admin: 05/15/21 11:28 Dose: Not Given Documented by: Hydroxyzine HCl (Hydroxyzine Hcl 25 Mg Tablet) 25 mg PO TID PRN PRN Reason: Anxiety Last Admin: 05/04/21 19:40 Dose: 25 mg Documented by: Hydroxyzine HCl (Hydroxyzine Hcl 50 Mg Tablet) 50 mg PO BEDTIME [facility] Last Admin: 05/14/21 20:18 Dose: 50 mg Documented by: Lamotrigine (Lamotrigine 25 Mg Tablet) 125 mg PO BEDTIME [facility] Last Admin: 05/14/21 20:18 Dose: 125 mg Documented by: Lorazepam (Lorazepam 1 Mg Tablet) 1 mg PO Q6H PRN PRN Reason: anxiety Last Admin: 05/15/21 10:18 Dose: 1 mg Documented by: Magnesium Hydroxide (Milk Of Magnesia 30 Ml Oral.Susp) 30 ml PO DAILY PRN PRN Reason: Constipation Mirtazapine (Mirtazapine 7.5 Mg Tablet) 22.5 mg PO BEDTIME [facility] Last Admin: 05/14/21 20:18 Dose: 22.5 mg Documented by: Ondansetron HCl (Ondansetron Odt 4 Mg Tab.Rapdis) 4 mg TRANSLINGU DAILY PRN PRN Reason: Nausea Last Admin: 05/01/21 09:01 Dose: 4 mg Documented by: Ondansetron HCl (Ondansetron Odt 8 Mg Tab.Rapdis) 8 mg TRANSLINGU BEDTIME [facility] Last Admin: 05/14/21 20:12 Dose: 8 mg Documented by: Quetiapine Fumarate (Quetiapine Fumarate 50 Mg Tablet) 50 mg PO BEDTIME PRN PRN Reason: anxiety, insomnia Trazodone HCl (Trazodone Hcl 100 Mg Tablet) 300 mg PO BEDTIME [facility] Last Admin: 05/14/21 20:18 Dose: 300 mg Documented by: Allergies Allergies Allergy/AdvReac Type Severity Reaction Status Date / Time metoclopramide [From Reglan] Allergy Muscle Verified 01/08/21 20:46 cramps haloperidol [From Haldol] AdvReac Severe Dystonia Verified 01/08/21 20:46 prazosin AdvReac Severe Abdominal Verified 04/05/21 10:55 Pain sucralfate [From Carafate] AdvReac Severe vomiting Verified 01/08/21 20:46 band-aids AdvReac Intermediate skin Uncoded 02/04/21 17:52 irritation Assessment & Plan Assessment & Plan (1) PTSD (post-traumatic stress disorder): Status: Acute Code(s): F43.10 - Post-traumatic stress disorder, unspecified (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 Plan: Review of diagnostics CT medications as per previous admission Collect collateral history Liase with respite 04/27/21 Continue current regime Diagnostics for [facility] appt. Assist pt in distress tolerance. 04/29/21 Continue current regime. Tolerating changes made 04/28/21. Encourage pt to attend OP psychotherapy, DBT focused treatment to re-enforce skills for managing trauma work. 04/30/21: Discussed trialing klonopin 1 mg QHS PRN for sleep aid, however also reviewed that benzodiazepines are not the medication of choice for PTSD. Will weigh risks and benefits upon trial. 05/03 no changes to med regimen remains on q5 05/06/21 Continue current plan of care 05/07/21 Continue current regime Encouraged to accept Abilify Maintana on 05/08/21. Discussion of chosing a therapist, interviewing potential therapists. Pt to consider. 05/08/21 Schedule Seroquel at HS per pt request Mood charting to begin next week. 05/09/2021: Continue current regimen and plans. No changes were made today 05/10/2021: Continue current plans and regimen. No changes today 05/11/21: Continue current plan. Reports Seroquel is more helpful with sleep. Discussed pt concerns regarding autism. 05/12/21: Continue current plan of care. 05/13/21: Continue current plan of care. 05/14/21: Pt is agreeable to OP psychotherapy. Hannah Proctor [facility] has reached out to former potential therapist via email to see if pt can go on the waiting list again. 05/15/21: Discontinue Mirtazapine Discontinue Seroquel 100 mg hs. Seroquel 50 mg hs prn Sertraline 25 mg daily EMDR, Neuropsych testing referrals initiated. 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 I spent minutes with the patient and/or on the patient floor today, greater than?50% of which was spent counseling/coordinating care. Informed Consent: does not understand Reason for contiued inpatient stay Substantial Risk for: harm to self, inability to function and rapid decompensation
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
[2021-05-15] MEDS: hydrOXYzine HCL 25 MG TABLET PO (17:03)
[2021-05-15 21:16] VITALS: BP 129/74; PULSE 116; RESP 16; TEMP 36.6; O2SAT 98
[2021-05-15] MEDS: Ondansetron ODT 8 MG TAB.RAPDIS TRANSLINGU (21:31)
[2021-05-15] MEDS: lamoTRIgine 25 MG TABLET 125 MG PO (21:32)
[2021-05-15] MEDS: Mirtazapine 7.5 MG TABLET 22.5 MG PO (21:34)
[2021-05-15] MEDS: traZODone HCL 100 MG TABLET 300 MG PO (21:34)
[2021-05-15] MEDS: hydrOXYzine HCL 50 MG TABLET PO (21:34)
[2021-05-15] MEDS: QUEtiapine Fumarate 50 MG TABLET PO (22:22)
[2021-05-15 22:47] LABS: Appearance Urine CLEAR; Color Urine YELLOW; Glucose Urine UA NEG (NEG); Leukocyte Esterase Urine NEG (NEG); Nitrite Urine NEG (NEG); Urine Blood NEG (NEG); Urine Ketones NEG (NEG); Urine Protein NEG (NEG-TRACE)
[2021-05-16 09:05] VITALS: BP 116/59; PULSE 92; TEMP 36.9
[2021-05-16] MEDS: cloNIDine HCL 0.1 MG TABLET PO (09:06)
[2021-05-16] MEDS: LORazepam 1 MG TABLET PO ×2 (09:07→15:39)
--- NOTE | 2021-05-16 18:42 | HO.PSYCHPN ---
Subjective Subjective Date of Service: 05/16/21 Reason For Visit: PTSD Interim History: Patient seen and discussed with team. corporate staff accountant report pt has been standing on her bed, despondent behavior, staring off. Patient evaluated today and upon interview she is found in her room, isolative, poor eye contact. Says she is having flashbacks. Reports she ate lunch. Says she doesnt remember the events from the last two days but over course of conversation she was able to remember playing Hiro with RN and that she ate lunch.?Says she feels safe. No SIB. Medication Compliance: Yes Side effects from medications: No Attending Groups: No Review of Systems Acute medical concerns: No Medical Review of Systems: unchanged Mental Status Exam Mental Status Exam Narrative: Patient Appearance:?Fatigued Patient Orientation:?Person Level of Consciousness:?Drowsy, Lethargic and Inappropriate (pseudoseizure sx present) Patient Behavior:?Talkative (no verbal communication), Passive, Sedated, Confused and Poor Eye Contact Mood Description:?Withdrawn Affect Description:?Withdrawn Patient Cognition Impaired:?Yes Ability to Follow Directions:?Poor Speech Pattern:?No Speech Memory Description:?Remote Impaired, Immediate Impaired, Shelter Impaired, Episodic Impaired, Recent Impaired, Working Impaired and Semantic Impaired Hallucinations:?None Delusions:?Not Present Perceptual Disturbances:?Depersonalization and Derealization Thought Process:?Disoriented, Incoherent, Evasive and Confusion Thought Content:?positive for Disoriented, positive for Poverty of Content and positive for Incoherent Depressive Symptoms:?Insomnia and Difficulty Sleeping Abnormal Motor Activity Signs and Symptoms:?Psychomotor Retardation Judgement:?Poor Diagnostics Vital Signs (24Hr): Vital Signs - 24 hr 05/17/21 08:30 05/17/21 19:41 Temperature 98.2 F 98.6 F Pulse Rate 97 92 Blood Pressure 106/63 90/51 L BMI result Body Mass Index 31.3 Labs Results: 05/15/21 11:24 05/15/21 11:24 Labs: Laboratory Results - last 48 hr 05/15/21 11:24 Prolactin 3.8 Imaging Radiology Impressions: ITS Impressions Head CT 05/15/21 16:53 IMPRESSION: 1. No evidence of acute intracranial hemorrhage or edematous territorial infarction. 2. Redemonstrated 0.7 cm nodular lesion centered within the suprasellar cistern. Medications Medications Current Medications Al Hydroxide/Mg Hydroxide (Magnesium Hydrox/Alum Hydrox 30 Ml Oral.Susp) 30 ml PO Q6H PRN PRN Reason: Heartburn/Nausea Aripiprazole (Aripiprazole Er 400 Mg Suser.Syr) 400 mg IM Q28D [facility] Last Admin: 05/08/21 10:01 Dose: 400 mg Documented by: Clonidine HCl (Clonidine Hcl 0.1 Mg Tablet) 0.1 mg PO DAILY FROILAN; Protocol Last Admin: 05/17/21 08:53 Dose: 0.1 mg Documented by: Hydroxyzine HCl (Hydroxyzine Hcl 25 Mg Tablet) 25 mg PO TID PRN PRN Reason: Anxiety Last Admin: 05/15/21 17:03 Dose: 25 mg Documented by: Hydroxyzine HCl (Hydroxyzine Hcl 50 Mg Tablet) 50 mg PO BEDTIME FROILAN Last Admin: 05/17/21 22:24 Dose: 50 mg Documented by: Lamotrigine (Lamotrigine 25 Mg Tablet) 125 mg PO BEDTIME [facility]AN Last Admin: 05/17/21 22:23 Dose: 125 mg Documented by: Lorazepam (Lorazepam 1 Mg Tablet) 1 mg PO Q6H PRN PRN Reason: anxiety Last Admin: 05/17/21 17:17 Dose: 1 mg Documented by: Magnesium Hydroxide (Milk Of Magnesia 30 Ml Oral.Susp) 30 ml PO DAILY PRN PRN Reason: Constipation Mirtazapine (Mirtazapine 7.5 Mg Tablet) 22.5 mg PO BEDTIME [facility]OILAN Last Admin: 05/17/21 22:23 Dose: 22.5 mg Documented by: Ondansetron HCl (Ondansetron Odt 4 Mg Tab.Rapdis) 4 mg TRANSLINGU DAILY PRN PRN Reason: Nausea Last Admin: 05/01/21 09:01 Dose: 4 mg Documented by: Ondansetron HCl (Ondansetron Odt 8 Mg Tab.Rapdis) 8 mg TRANSLINGU BEDTIME RFOILAN Last Admin: 05/17/21 22:23 Dose: 8 mg Documented by: Quetiapine Fumarate (Quetiapine Fumarate 50 Mg Tablet) 50 mg PO BEDTIME PRN PRN Reason: anxiety, insomnia Last Admin: 05/15/21 22:22 Dose: 50 mg Documented by: Trazodone HCl (Trazodone Hcl 100 Mg Tablet) 300 mg PO BEDTIME FROILAN Last Admin: 05/17/21 22:23 Dose: 300 mg Documented by: Allergies Allergies Allergy/AdvReac Type Severity Reaction Status Date / Time metoclopramide [From Reglan] Allergy Muscle Verified 01/08/21 20:46 cramps haloperidol [From Haldol] AdvReac Severe Dystonia Verified 01/08/21 20:46 prazosin AdvReac Severe Abdominal Verified 04/05/21 10:55 Pain sucralfate [From Carafate] AdvReac Severe vomiting Verified 01/08/21 20:46 band-aids AdvReac Intermediate skin Uncoded 02/04/21 17:52 irritation Assessment & Plan Assessment & Plan (1) PTSD (post-traumatic stress disorder): Status: Acute Code(s): F43.10 - Post-traumatic stress disorder, unspecified (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 Plan: Review of diagnostics CT medications as per previous admission Collect collateral history Liase with respite 04/27/21 Continue current regime Diagnostics for [facility] appt. Assist pt in distress tolerance. 04/29/21 Continue current regime. Tolerating changes made 04/28/21. Encourage pt to attend OP psychotherapy, DBT focused treatment to re-enforce skills for managing trauma work. 04/30/21: Discussed trialing klonopin 1 mg QHS PRN for sleep aid, however also reviewed that benzodiazepines are not the medication of choice for PTSD. Will weigh risks and benefits upon trial. 05/03 no changes to med regimen remains on q5 05/06/21 Continue current plan of care 05/07/21 Continue current regime Encouraged to accept Abilify Maintana on 05/08/21. Discussion of chosing a therapist, interviewing potential therapists. Pt to consider. 05/08/21 Schedule Seroquel at HS per pt request Mood charting to begin next week. 05/09/2021: Continue current regimen and plans. No changes were made today 05/10/2021: Continue current plans and regimen. No changes today 05/11/21: Continue current plan. Reports Seroquel is more helpful with sleep. Discussed pt concerns regarding autism. 05/12/21: Continue current plan of care. 05/13/21: Continue current plan of care. 05/14/21: Pt is agreeable to OP psychotherapy. Hannah Proctor [facility] has reached out to former potential therapist via email to see if pt can go on the waiting list again. 05/15/21: Discontinue Mirtazapine Discontinue Seroquel 100 mg hs. Seroquel 50 mg hs prn Sertraline 25 mg daily EMDR, Neuropsych testing referrals initiated. ?Consult with [facility] for dissociative seizures/PTSD Hospitalist consult much appreciated. 05/16/21: no medication changes I spent minutes with the patient and/or on the patient floor today, greater than?50% of which was spent counseling/coordinating care. Reason for contiued inpatient stay Substantial Risk for: med/psych decompensation
[2021-05-16 19:55] VITALS: BP 114/69; PULSE 98; TEMP 36.3; O2SAT 98
[2021-05-16] MEDS: Ondansetron ODT 8 MG TAB.RAPDIS TRANSLINGU (21:05)
[2021-05-16] MEDS: Mirtazapine 7.5 MG TABLET 22.5 MG PO (21:09)
[2021-05-16] MEDS: traZODone HCL 100 MG TABLET 300 MG PO (21:09)
[2021-05-16] MEDS: lamoTRIgine 25 MG TABLET 125 MG PO (21:10)
[2021-05-16] MEDS: hydrOXYzine HCL 50 MG TABLET PO (21:10)
[2021-05-17 08:30] VITALS: BP 106/63; PULSE 97; TEMP 36.8
[2021-05-17 08:32] LABS: Prolactin 3.8 ng/mL
[2021-05-17] MEDS: cloNIDine HCL 0.1 MG TABLET PO (08:53)
[2021-05-17] MEDS: LORazepam 1 MG TABLET PO (17:17)
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
[2021-05-17 19:41] VITALS: BP 90/51; PULSE 92; TEMP 37
[2021-05-17] MEDS: traZODone HCL 100 MG TABLET 300 MG PO (22:23)
[2021-05-17] MEDS: lamoTRIgine 25 MG TABLET 125 MG PO (22:23)
[2021-05-17] MEDS: Mirtazapine 7.5 MG TABLET 22.5 MG PO (22:23)
[2021-05-17] MEDS: Ondansetron ODT 8 MG TAB.RAPDIS TRANSLINGU (22:23)
[2021-05-17] MEDS: hydrOXYzine HCL 50 MG TABLET PO (22:24)
[2021-05-18 06:00] VITALS: PULSE 80; RESP 14; TEMP 36.6; O2SAT 98
[2021-05-18] MEDS: cloNIDine HCL 0.1 MG TABLET PO (09:23)
[2021-05-18] MEDS: LORazepam 1 MG TABLET PO ×2 (13:23→22:51)
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
[2021-05-18 19:55] VITALS: BP 128/65; PULSE 118; RESP 18; TEMP 36.6; O2SAT 98
[2021-05-18] MEDS: lamoTRIgine 25 MG TABLET 125 MG PO (21:38)
[2021-05-18] MEDS: Ondansetron ODT 8 MG TAB.RAPDIS TRANSLINGU (21:39)
[2021-05-18] MEDS: hydrOXYzine HCL 50 MG TABLET PO (21:39)
[2021-05-18] MEDS: traZODone HCL 100 MG TABLET 300 MG PO (21:40)
[2021-05-18] MEDS: QUEtiapine Fumarate 50 MG TABLET PO (21:45)
[2021-05-19 09:00] VITALS: BP 108/60; PULSE 98; RESP 16; TEMP 36.5; O2SAT 99
[2021-05-19] MEDS: cloNIDine HCL 0.1 MG TABLET PO (09:22)
[2021-05-19] MEDS: Sertraline HCL 25 MG TABLET PO (09:22)
[2021-05-19] MEDS: LORazepam 1 MG TABLET PO ×2 (11:13→22:20)
--- NOTE | 2021-05-19 18:27 | HO.PSYCHPN ---
Subjective Subjective Date of Service: 05/19/21 Reason For Visit: PTSD Interim History: No specific issues to discuss with tw today Delaney reports. She did ask some questions regarding sleep, medications and trauma which we discussed. We reviewed the medical clearance done on Tuesday when she had her seizure which was prolonged. Review of Systems Acute medical concerns: No Medical Review of Systems: unchanged Review of Systems Reports behavioral changes and Reports confusion Psychiatric: Reports anxiety, Reports behavioral changes, Reports confusion, Reports difficulty concentrating, Reports hopelessness, Reports anhedonia, Reports mood swings, Reports paranoia and Reports other (dissociative episodes/pseudoseizures) Mental Status Exam Mental Status Exam Patient Appearance: Disheveled Patient Orientation: Person, Place, Time and Situation Level of Consciousness: Alert Patient Behavior: Appropriate, Talkative, Cooperative and Good Eye Contact Mood Description: Withdrawn, Depressed, Anxious, Sad and Apprehensive Affect Description: Flat Patient Cognition Impaired: No Ability to Follow Directions: Good Speech Pattern: Clear, Appropriate, Spontaneous Speech and Soft-Spoken Memory Description: Episodic Impaired Hallucinations: None Delusions: Not Present Perceptual Disturbances: Depersonalization and Derealization Thought Process: Intact, Distracted and Rumination Thought Content: positive for [place], positive for Perseveration and positive for Suicidal Ideation (chronic) Depressive Symptoms: Insomnia, Difficulty Sleeping, Loss of Int. in Activity, Feelings of Worthlessness, Hopelessness, Feelings of Guilt, Unhappiness, Increased Fatigue, Thoughts of /Suicide, Low Self Esteem, Loss of Energy and Difficulty Concentrating Judgement: Good Diagnostics Vital Signs (24Hr): Vital Signs - 24 hr 05/18/21 19:55 05/19/21 09:00 Temperature 97.8 F 97.7 F Pulse Rate 118 H 98 Respiratory Rate 18 16 Blood Pressure 128/65 108/60 Pulse Oximetry 98 99 BMI result Body Mass Index 31.3 Labs Results: 05/15/21 11:24 05/15/21 11:24 Imaging Radiology Impressions: ITS Impressions Head CT 05/15/21 16:53 IMPRESSION: 1. No evidence of acute intracranial hemorrhage or edematous territorial infarction. 2. Redemonstrated 0.7 cm nodular lesion centered within the suprasellar cistern. Medications Medications Current Medications Al Hydroxide/Mg Hydroxide (Magnesium Hydrox/Alum Hydrox 30 Ml Oral.Susp) 30 ml PO Q6H PRN PRN Reason: Heartburn/Nausea Aripiprazole (Aripiprazole Er 400 Mg Suser.Syr) 400 mg IM Q28D [facility] Last Admin: 05/08/21 10:01 Dose: 400 mg Documented by: Clonidine HCl (Clonidine Hcl 0.1 Mg Tablet) 0.1 mg PO DAILY [facility]; Protocol Last Admin: 05/19/21 09:22 Dose: 0.1 mg Documented by: Hydroxyzine HCl (Hydroxyzine Hcl 25 Mg Tablet) 25 mg PO TID PRN PRN Reason: Anxiety Last Admin: 05/15/21 17:03 Dose: 25 mg Documented by: Hydroxyzine HCl (Hydroxyzine Hcl 50 Mg Tablet) 50 mg PO BEDTIME [facility] Last Admin: 05/18/21 21:39 Dose: 50 mg Documented by: Lamotrigine (Lamotrigine 25 Mg Tablet) 125 mg PO BEDTIME [facility] Last Admin: 05/18/21 21:38 Dose: 125 mg Documented by: Lorazepam (Lorazepam 1 Mg Tablet) 1 mg PO Q6H PRN PRN Reason: anxiety Last Admin: 05/19/21 11:13 Dose: 1 mg Documented by: Magnesium Hydroxide (Milk Of Magnesia 30 Ml Oral.Susp) 30 ml PO DAILY PRN PRN Reason: Constipation Ondansetron HCl (Ondansetron Odt 4 Mg Tab.Rapdis) 4 mg TRANSLINGU DAILY PRN PRN Reason: Nausea Last Admin: 05/01/21 09:01 Dose: 4 mg Documented by: Ondansetron HCl (Ondansetron Odt 8 Mg Tab.Rapdis) 8 mg TRANSLINGU BEDTIME [facility] Last Admin: 05/18/21 21:39 Dose: 8 mg Documented by: Quetiapine Fumarate (Quetiapine Fumarate 50 Mg Tablet) 50 mg PO BEDTIME PRN PRN Reason: anxiety, insomnia Last Admin: 05/18/21 21:45 Dose: 50 mg Documented by: Sertraline HCl (Sertraline Hcl 25 Mg Tablet) 25 mg PO DAILY [facility] Last Admin: 05/19/21 09:22 Dose: 25 mg Documented by: Trazodone HCl (Trazodone Hcl 100 Mg Tablet) 300 mg PO BEDTIME [facility] Last Admin: 05/18/21 21:40 Dose: 300 mg Documented by: Allergies Allergies Allergy/AdvReac Type Severity Reaction Status Date / Time metoclopramide [From Reglan] Allergy Muscle Verified 01/08/21 20:46 cramps haloperidol [From Haldol] AdvReac Severe Dystonia Verified 01/08/21 20:46 prazosin AdvReac Severe Abdominal Verified 04/05/21 10:55 Pain sucralfate [From Carafate] AdvReac Severe vomiting Verified 01/08/21 20:46 band-aids AdvReac Intermediate skin Uncoded 02/04/21 17:52 irritation Assessment & Plan Assessment & Plan (1) PTSD (post-traumatic stress disorder): Status: Acute Code(s): F43.10 - Post-traumatic stress disorder, unspecified (2) Psychogenic nonepileptic seizure: Status: Acute Code(s): F44.5 - Conversion disorder with seizures or convulsions Assessment and Plan: Young woman with complex underlying psychological and psychiatric history suffering from seizure-like episodes with normal EEG. It is important to understand that this type of episodes does not mean that patient is faking. Some recent sophisticated neuro sign to fix studies have suggested that there region is still in the brain though not of epileptic type. This type of syndrome seem to occur or effect people with prior history of psychological or emotional injury, more commonly of sexual type, but there also is likely an underlying cerebral tendency about which we do not have good understanding. Some functional MRI studies have only suggested some dysfunction but it is nature and what to do about it is not known. In awake, this condition is more difficult to treat than epilepsy and more difficult to manage. Probably the most effective treatment is some kind of psychological intervention but even that is marginally effective. In some patient it is a self-limiting disease and seems to disappear after a while. Presence of underlying psychiatric disease of a different nature especially of psychotic type makes things much more complicated. There is no particular pharmacological treatment for this condition but if her mood stabilizer is needed, a medicine like oxcarbazepine, lamotrigine or valproic acid can be used. Finally, there are many patients who have combination of nonepileptic spells and epilepsy, who could be help with this type of medications. Plan 05/18: Discussed changes recommended 05/15, Seroquel previously implemented due to potential to lower seizure threshold and participate in sx presentation. Pt agrees to Mirtazapine discontinuation and Sertraline initiation-states she does not recall discussing these on 05/15. Informed pt that this is the rationale for waiting to implement until today when she was clearer. 05/19/21: Continue current regime I spent minutes with the patient and/or on the patient floor today, greater than?50% of which was spent counseling/coordinating care. Patient educated on: therapeutic strategies and other (sleep) Informed Consent: understands and further education needed Reason for contiued inpatient stay Substantial Risk for: harm to self, inability to function and rapid decompensation
[2021-05-19 21:40] VITALS: BP 99/65; PULSE 98; TEMP 36.4; O2SAT 98
[2021-05-19] MEDS: Ondansetron ODT 8 MG TAB.RAPDIS TRANSLINGU (21:44)
[2021-05-19] MEDS: traZODone HCL 100 MG TABLET 300 MG PO (22:10)
[2021-05-19] MEDS: hydrOXYzine HCL 50 MG TABLET PO (22:14)
[2021-05-19] MEDS: lamoTRIgine 25 MG TABLET 125 MG PO (22:14)
[2021-05-20 08:22] VITALS: BP 100/60; PULSE 75; TEMP 36.9; O2SAT 97
[2021-05-20] MEDS: Sertraline HCL 25 MG TABLET PO (09:09)
[2021-05-20] MEDS: cloNIDine HCL 0.1 MG TABLET PO ×2 (09:09→20:48)
[2021-05-20] MEDS: Magnesium Hydrox/Alum Hydrox 30 ML ORAL.SUSP PO (16:53)
[2021-05-20] MEDS: hydrOXYzine HCL 25 MG TABLET PO (16:58)
[2021-05-20] MEDS: LORazepam 1 MG TABLET PO (16:58)
--- NOTE | 2021-05-20 17:46 | HO.PSYCHPN ---
Subjective Subjective Date of Service: 05/20/21 Reason For Visit: PTSD Interim History: Discussed mother's visit of 05/20. Discussed her concern that family will not tell her how her 5yo niece is and will not discuss her due to brother's refusal to allow pt to have information. Presents with brighter affect today. Ongoing review of sleep. Discussed trial of a dose of Clonidine at hs to assist with rest. She finds the a.m. dose helpful with anxiety. Also asks for Seroquel to be standing dose vs prn and it helps me to wake up feeling calmer and that feels good, the morning is better for me. Medication Compliance: Yes Side effects from medications: No Attending Groups: Yes Review of Systems Acute medical concerns: No Medical Review of Systems: unchanged Review of Systems Reports behavioral changes and Reports confusion Psychiatric: Reports anxiety, Reports behavioral changes, Reports confusion, Reports difficulty concentrating, Reports hopelessness, Reports anhedonia, Reports mood swings, Reports paranoia and Reports other (dissociative episodes/pseudoseizures) Mental Status Exam Mental Status Exam Patient Appearance: Disheveled Patient Orientation: Person, Place, Time and Situation Level of Consciousness: Alert Patient Behavior: Appropriate, Talkative, Cooperative and Good Eye Contact Mood Description: Withdrawn, Depressed, Anxious, Sad and Apprehensive Affect Description: Flat Patient Cognition Impaired: No Ability to Follow Directions: Good Speech Pattern: Clear, Appropriate, Spontaneous Speech and Soft-Spoken Memory Description: Episodic Impaired Hallucinations: None Delusions: Not Present Perceptual Disturbances: Depersonalization and Derealization Thought Process: Intact, Distracted and Rumination Thought Content: positive for [place], positive for [place] and positive for Suicidal Ideation (chronic) Depressive Symptoms: Insomnia, Difficulty Sleeping, Loss of Int. in Activity, Feelings of Worthlessness, Hopelessness, Feelings of Guilt, Unhappiness, Increased Fatigue, Thoughts of /Suicide, Low Self Esteem, Loss of Energy and Difficulty Concentrating Judgement: Good Diagnostics Vital Signs (24Hr): Vital Signs - 24 hr 05/19/21 21:40 05/20/21 08:22 Temperature 97.5 F 98.4 F Pulse Rate 98 75 Blood Pressure 99/65 100/60 Pulse Oximetry 98 97 BMI result Body Mass Index 31.3 Labs Results: 05/15/21 11:24 05/15/21 11:24 Imaging Radiology Impressions: ITS Impressions Head CT 05/15/21 16:53 IMPRESSION: 1. No evidence of acute intracranial hemorrhage or edematous territorial infarction. 2. Redemonstrated 0.7 cm nodular lesion centered within the suprasellar cistern. Medications Medications Current Medications Al Hydroxide/Mg Hydroxide (Magnesium Hydrox/Alum Hydrox 30 Ml Oral.Susp) 30 ml PO Q6H PRN PRN Reason: Heartburn/Nausea Last Admin: 05/20/21 16:53 Dose: 30 ml Documented by: Aripiprazole (Aripiprazole Er 400 Mg Suser.Syr) 400 mg IM Q28D [facility] Last Admin: 05/08/21 10:01 Dose: 400 mg Documented by: Clonidine HCl (Clonidine Hcl 0.1 Mg Tablet) 0.1 mg PO BID [facility]; Protocol Hydroxyzine HCl (Hydroxyzine Hcl 25 Mg Tablet) 25 mg PO TID PRN PRN Reason: Anxiety Last Admin: 05/20/21 16:58 Dose: 25 mg Documented by: Hydroxyzine HCl (Hydroxyzine Hcl 50 Mg Tablet) 50 mg PO BEDTIME [facility] Last Admin: 05/19/21 22:14 Dose: 50 mg Documented by: Lamotrigine (Lamotrigine 25 Mg Tablet) 125 mg PO BEDTIME [facility] Last Admin: 05/19/21 22:14 Dose: 125 mg Documented by: Lorazepam (Lorazepam 1 Mg Tablet) 1 mg PO Q6H PRN PRN Reason: anxiety Last Admin: 05/20/21 16:58 Dose: 1 mg Documented by: Magnesium Hydroxide (Milk Of Magnesia 30 Ml Oral.Susp) 30 ml PO DAILY PRN PRN Reason: Constipation Ondansetron HCl (Ondansetron Odt 4 Mg Tab.Rapdis) 4 mg TRANSLINGU DAILY PRN PRN Reason: Nausea Last Admin: 05/01/21 09:01 Dose: 4 mg Documented by: Ondansetron HCl (Ondansetron Odt 8 Mg Tab.Rapdis) 8 mg TRANSLINGU BEDTIME [facility] Last Admin: 05/19/21 21:44 Dose: 8 mg Documented by: Quetiapine Fumarate (Quetiapine Fumarate 50 Mg Tablet) 50 mg PO BEDTIME [facility] Sertraline HCl (Sertraline Hcl 25 Mg Tablet) 25 mg PO DAILY [facility] Last Admin: 05/20/21 09:09 Dose: 25 mg Documented by: Trazodone HCl (Trazodone Hcl 100 Mg Tablet) 300 mg PO BEDTIME [facility] Last Admin: 05/19/21 22:10 Dose: 300 mg Documented by: Allergies Allergies Allergy/AdvReac Type Severity Reaction Status Date / Time metoclopramide [From Reglan] Allergy Muscle Verified 01/08/21 20:46 cramps haloperidol [From Haldol] AdvReac Severe Dystonia Verified 01/08/21 20:46 prazosin AdvReac Severe Abdominal Verified 04/05/21 10:55 Pain sucralfate [From Carafate] AdvReac Severe vomiting Verified 01/08/21 20:46 band-aids AdvReac Intermediate skin Uncoded 02/04/21 17:52 irritation Assessment & Plan Assessment & Plan (1) PTSD (post-traumatic stress disorder): Status: Acute Code(s): F43.10 - Post-traumatic stress disorder, unspecified (2) Psychogenic nonepileptic seizure: Status: Acute Code(s): F44.5 - Conversion disorder with seizures or convulsions Assessment and Plan: Young woman with complex underlying psychological and psychiatric history suffering from seizure-like episodes with normal EEG. It is important to understand that this type of episodes does not mean that patient is faking. Some recent sophisticated neuro sign to fix studies have suggested that there region is still in the brain though not of epileptic type. This type of syndrome seem to occur or effect people with prior history of psychological or emotional injury, more commonly of sexual type, but there also is likely an underlying cerebral tendency about which we do not have good understanding. Some functional MRI studies have only suggested some dysfunction but it is nature and what to do about it is not known. In awake, this condition is more difficult to treat than epilepsy and more difficult to manage. Probably the most effective treatment is some kind of psychological intervention but even that is marginally effective. In some patient it is a self-limiting disease and seems to disappear after a while. Presence of underlying psychiatric disease of a different nature especially of psychotic type makes things much more complicated. There is no particular pharmacological treatment for this condition but if her mood stabilizer is needed, a medicine like oxcarbazepine, lamotrigine or valproic acid can be used. Finally, there are many patients who have combination of nonepileptic spells and epilepsy, who could be help with this type of medications. Plan 05/18: Discussed changes recommended 05/15, Seroquel previously implemented due to potential to lower seizure threshold and participate in sx presentation. Pt agrees to Mirtazapine discontinuation and Sertraline initiation-states she does not recall discussing these on 05/15. Informed pt that this is the rationale for waiting to implement until today when she was clearer. 05/20/32: Increase clonidine to 0.1 mg bid Change Seroquel 50 mg HS prn to standing per pt request. I spent minutes with the patient and/or on the patient floor today, greater than?50% of which was spent counseling/coordinating care. Patient educated on: medication risk/benefits and therapeutic strategies Informed Consent: understands and further education needed Reason for contiued inpatient stay Substantial Risk for: harm to self, inability to function and rapid decompensation
[2021-05-20 17:57] VITALS: BP 129/60; PULSE 91; RESP 18; TEMP 36.7; O2SAT 98
[2021-05-20] MEDS: Ondansetron ODT 4 MG TAB.RAPDIS TRANSLINGU (18:02)
[2021-05-20 20:47] VITALS: BP 116/60; PULSE 100
[2021-05-20] MEDS: Ondansetron ODT 8 MG TAB.RAPDIS TRANSLINGU (20:47)
[2021-05-20] MEDS: QUEtiapine Fumarate 50 MG TABLET PO (20:48)
[2021-05-20] MEDS: lamoTRIgine 25 MG TABLET 125 MG PO (20:48)
[2021-05-20] MEDS: hydrOXYzine HCL 50 MG TABLET PO (20:48)
[2021-05-20] MEDS: traZODone HCL 100 MG TABLET 300 MG PO (20:49)
[2021-05-21 08:58] VITALS: BP 118/65; PULSE 102; TEMP 36.6
[2021-05-21] MEDS: Sertraline HCL 25 MG TABLET PO (09:00)
[2021-05-21] MEDS: cloNIDine HCL 0.1 MG TABLET PO ×2 (09:00→20:33)
[2021-05-21] MEDS: Ondansetron ODT 4 MG TAB.RAPDIS TRANSLINGU (14:02)
--- NOTE | 2021-05-21 16:46 | P.PNPSI_ITS ---
Subjective Subjective Date of Service: 05/21/21 Reason For Visit: PTSD Interim History: Reports adverse GI effect from Sertraline. Agent discontinued. Pepcid added Today discussed upcoming eval by NAHOMI COOPER who specializes in DBT, Trauma. 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 Discussed. Medication Compliance: Yes Side effects from medications: Yes (?Sertraline-GI upset) Attending Groups: No Review of Systems Acute medical concerns: No Medical Review of Systems: unchanged Review of Systems Reports behavioral changes and Reports confusion Psychiatric: Reports anxiety, Reports behavioral changes, Reports confusion, Reports difficulty concentrating, Reports hopelessness, Reports anhedonia, Reports mood swings, Reports paranoia and Reports other (dissociative episodes/pseudoseizures) Mental Status Exam Mental Status Exam Patient Appearance: Disheveled Patient Orientation: Person, Place, Time and Situation Level of Consciousness: Alert Patient Behavior: Appropriate, Talkative, Cooperative and Good Eye Contact Mood Description: Withdrawn, Depressed, Anxious, Sad and Apprehensive Affect Description: Flat Patient Cognition Impaired: No Ability to Follow Directions: Good Speech Pattern: Clear, Appropriate, Spontaneous Speech and Soft-Spoken Memory Description: Episodic Impaired Hallucinations: None Delusions: Not Present Perceptual Disturbances: Depersonalization and Derealization Thought Process: Intact, Distracted and Rumination Thought Content: positive for [place], positive for [place] and positive for Suicidal Ideation (chronic) Depressive Symptoms: Insomnia, Difficulty Sleeping, Loss of Int. in Activity, Feelings of Worthlessness, Hopelessness, Feelings of Guilt, Unhappiness, I ncreased Fatigue, Thoughts of /Suicide, Low Self Esteem, Loss of Energy and Difficulty Concentrating Judgement: Good Diagnostics Vital Signs (24Hr): Vital Signs - 24 hr 05/20/21 17:57 05/20/21 20:47 05/21/21 08:58 Temperature 98.1 F 97.8 F Pulse Rate 91 100 102 H Respiratory Rate 18 Blood Pressure 129/60 116/60 118/65 Pulse Oximetry 98 BMI result Body Mass Index 31.3 Labs Results: 05/15/21 11:24 05/15/21 11:24 Imaging Radiology Impressions: ITS Impressions Head CT 05/15/21 16:53 IMPRESSION: 1. No evidence of acute intracranial hemorrhage or edematous territorial infarction. 2. Redemonstrated 0.7 cm nodular lesion centered within the suprasellar cistern. Medications Medications Current Medications Al Hydroxide/Mg Hydroxide (Magnesium Hydrox/Alum Hydrox 30 Ml Oral.Susp) 30 ml PO Q6H PRN PRN Reason: Heartburn/Nausea Last Admin: 05/20/21 16:53 Dose: 30 ml Documented by: Aripiprazole (Aripiprazole Er 400 Mg Suser.Syr) 400 mg IM Q28D [facility] Last Admin: 05/08/21 10:01 Dose: 400 mg Documented by: Clonidine HCl (Clonidine Hcl 0.1 Mg Tablet) 0.1 mg PO BID [facility]; Protocol Last Admin: 05/21/21 09:00 Dose: 0.1 mg Documented by: Famotidine (Famotidine 20 Mg Tablet) 20 mg PO DAILY [facility] Hydroxyzine HCl (Hydroxyzine Hcl 25 Mg Tablet) 25 mg PO TID PRN PRN Reason: Anxiety Last Admin: 05/20/21 16:58 Dose: 25 mg Documented by: Hydroxyzine HCl (Hydroxyzine Hcl 50 Mg Tablet) 50 mg PO BEDTIME [facility] Last Admin: 05/20/21 20:48 Dose: 50 mg Documented by: Lamotrigine (Lamotrigine 25 Mg Tablet) 125 mg PO BEDTIME [facility] Last Admin: 05/20/21 20:48 Dose: 125 mg Documented by: Lorazepam (Lorazepam 1 Mg Tablet) 1 mg PO Q6H PRN PRN Reason: anxiety Last Admin: 05/20/21 16:58 Dose: 1 mg Documented by: Magnesium Hydroxide (Milk Of Magnesia 30 Ml Oral.Susp) 30 ml PO DAILY PRN PRN Reason: Constipation Ondansetron HCl (Ondansetron Odt 4 Mg Tab.Rapdis) 4 mg TRANSLINGU DAILY PRN PRN Reason: Nausea Last Admin: 05/21/21 14:02 Dose: 4 mg Documented by: Ondansetron HCl (Ondansetron Odt 8 Mg Tab.Rapdis) 8 mg TRANSLINGU BEDTIME [facility] Last Admin: 05/20/21 20:47 Dose: 8 mg Documented by: Quetiapine Fumarate (Quetiapine Fumarate 50 Mg Tablet) 50 mg PO BEDTIME [facility] Last Admin: 05/20/21 20:48 Dose: 50 mg Documented by: Trazodone HCl (Trazodone Hcl 100 Mg Tablet) 300 mg PO BEDTIME [facility] Last Admin: 05/20/21 20:49 Dose: 300 mg Documented by: Allergies Allergies Allergy/AdvReac Type Severity Reaction Status Date / Time metoclopramide [From Reglan] Allergy Muscle Verified 01/08/21 20:46 cramps haloperidol [From Haldol] AdvReac Severe Dystonia Verified 01/08/21 20:46 prazosin AdvReac Severe Abdominal Verified 04/05/21 10:55 Pain sucralfate [From Carafate] AdvReac Severe vomiting Verified 01/08/21 20:46 band-aids AdvReac Intermediate skin Uncoded 02/04/21 17:52 irritation Assessment & Plan Assessment & Plan (1) PTSD (post-traumatic stress disorder): Status: Acute Code(s): F43.10 - Post-traumatic stress disorder, unspecified (2) Psychogenic nonepileptic seizure: Status: Acute Code(s): F44.5 - Conversion disorder with seizures or convulsions Assessment and Plan: Young woman with complex underlying psychological and psychiatric history suffering from seizure-like episodes with normal EEG. It is important to understand that this type of episodes does not mean that patient is faking. Some recent sophisticated neuro sign to fix studies have suggested that there region is still in the brain though not of epileptic type. This type of syndrome seem to occur or effect people with prior history of psychological or emotional injury, more commonly of sexual type, but there also is likely an underlying cerebral tendency about which we do not have good understanding. Some functional MRI studies have only suggested some dysfunction but it is nature and what to do about it is not known. In awake, this condition is more difficult to treat than epilepsy and more difficult to manage. Probably the most effective treatment is some kind of psychological intervention but even that is marginally effective. In some patient it is a self-limiting disease and seems to disappear after a while. Presence of underlying psychiatric disease of a different nature especially of psychotic type makes things much more complicated. There is no particular pharmacological treatment for this condition but if her mood stabilizer is needed, a medicine like oxcarbazepine, lamotrigine or valproic acid can be used. Finally, there are many patients who have combination of nonepileptic spells and epilepsy, who could be help with this type of medications. Plan 05/18: Discussed changes recommended 05/15, Seroquel previously implemented due to potential to lower seizure threshold and participate in sx presentation. Pt agrees to Mirtazapine discontinuation and Sertraline initiation-states she does not recall discussing these on 05/15. Informed pt that this is the rationale for waiting to implement until today when she was clearer. 05/20/21: Increase clonidine to 0.1 mg bid Change Seroquel 50 mg HS prn to standing per pt request. 05/21/21: Discontinue Sertraline- GI upset Pepcid trial to facilitate relief I spent minutes with the patient and/or on the patient floor today, greater than?50% of which was spent counseling/coordinating care. Patient educated on: medication risk/benefits and medical condition Informed Consent: understands and further education needed Reason for contiued inpatient stay Substantial Risk for: harm to self, inability to function and rapid decompensati on
[2021-05-21 18:00] VITALS: BP 115/59; PULSE 101; RESP 16; TEMP 36.4; O2SAT 99
[2021-05-21] MEDS: Ondansetron ODT 8 MG TAB.RAPDIS TRANSLINGU (20:32)
[2021-05-21] MEDS: hydrOXYzine HCL 50 MG TABLET PO (20:33)
[2021-05-21] MEDS: QUEtiapine Fumarate 50 MG TABLET PO (20:33)
[2021-05-21] MEDS: traZODone HCL 100 MG TABLET 300 MG PO (20:33)
[2021-05-21] MEDS: lamoTRIgine 25 MG TABLET 125 MG PO (20:33)
[2021-05-22 08:54] VITALS: BP 102/58; PULSE 89; TEMP 36.7
[2021-05-22] MEDS: Famotidine 20 MG TABLET PO ×2 (09:21→22:16)
[2021-05-22] MEDS: cloNIDine HCL 0.1 MG TABLET PO (09:21)
--- NOTE | 2021-05-22 16:36 | P.PNPSI_ITS ---
Subjective Subjective Date of Service: 05/22/21 Reason For Visit: PTSD Medical Problems Affecting Mental Status: No Interim History: Continues to experience GI distress. Denies vomiting, able to eat, no sx of blood in stool, urine. Reports Pepcid to be useful thus far. Discussed increase to BID dosing which she agrees. 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 Medication Compliance: Yes Side effects from medications: Yes (? Sertraline- GI distress) Attending Groups: No Review of Systems Acute medical concerns: No Medical Review of Systems: unchanged Review of Systems Reports behavioral changes and Reports confusion Psychiatric: Reports anxiety, Reports behavioral changes, Reports confusion, Reports difficulty concentrating, Reports hopelessness, Reports anhedonia, Reports mood swings, Reports paranoia and Reports other (dissociative episodes/pseudoseizures) Mental Status Exam Mental Status Exam Patient Appearance: Disheveled Patient Orientation: Person, Place, Time and Situation Level of Consciousness: Alert Patient Behavior: Appropriate, Talkative, Cooperative and Good Eye Contact Mood Description: Withdrawn, Depressed, Anxious, Sad and Apprehensive Affect Description: Flat Patient Cognition Impaired: No Ability to Follow Directions: Good Speech Pattern: Clear, Appropriate, Spontaneous Speech and Soft-Spoken Memory Description: Episodic Impaired Hallucinations: None Delusions: Not Present Perceptual Disturbances: Depersonalization and Derealization Thought Process: Intact, Distracted and Rumination Thought Content: positive for [place], positive for [place] and positive for Suicidal Ideation (chronic) Depressive Symptoms: Insomnia, Difficulty Sleeping, Loss of Int. in Activity, Feelings of Worthlessness, Hopelessness, Feelings of Guilt, Unhappiness, Increased Fatigue, Thoughts of /Suicide, Low Self Esteem, Loss of Energy and Difficulty Concentrating Judgement: Good Diagnostics Vital Signs (24Hr): Vital Signs - 24 hr 05/21/21 18:00 05/22/21 08:54 Temperature 97.6 F 98.1 F Pulse Rate 101 H 89 Respiratory Rate 16 Blood Pressure 115/59 L 102/58 L Pulse Oximetry 99 BMI result Body Mass Index 31.3 Labs Results: 05/15/21 11:24 05/15/21 11:24 Imaging Radiology Impressions: ITS Impressions Head CT 05/15/21 16:53 IMPRESSION: 1. No evidence of acute intracranial hemorrhage or edematous territorial infarction. 2. Redemonstrated 0.7 cm nodular lesion centered within the suprasellar cistern. Medications Medications Current Medications Al Hydroxide/Mg Hydroxide (Magnesium Hydrox/Alum Hydrox 30 Ml Oral.Susp) 30 ml PO Q6H PRN PRN Reason: Heartburn/Nausea Last Admin: 05/20/21 16:53 Dose: 30 ml Documented by: Aripiprazole (Aripiprazole Er 400 Mg Suser.Syr) 400 mg IM Q28D [facility] Last Admin: 05/08/21 10:01 Dose: 400 mg Documented by: Clonidine HCl (Clonidine Hcl 0.1 Mg Tablet) 0.1 mg PO BID [facility]; Protocol Last Admin: 05/22/21 09:21 Dose: 0.1 mg Documented by: Famotidine (Famotidine 20 Mg Tablet) 20 mg PO DAILY [facility] Last Admin: 05/22/21 09:21 Dose: 20 mg Documented by: Hydroxyzine HCl (Hydroxyzine Hcl 25 Mg Tablet) 25 mg PO TID PRN PRN Reason: Anxiety Last Admin: 05/20/21 16:58 Dose: 25 mg Documented by: Hydroxyzine HCl (Hydroxyzine Hcl 50 Mg Tablet) 50 mg PO BEDTIME [facility] Last Admin: 05/21/21 20:33 Dose: 50 mg Documented by: Lamotrigine (Lamotrigine 25 Mg Tablet) 125 mg PO BEDTIME [facility] Last Admin: 05/21/21 20:33 Dose: 125 mg Documented by: Lorazepam (Lorazepam 1 Mg Tablet) 1 mg PO Q6H PRN PRN Reason: anxiety Last Admin: 05/20/21 16:58 Dose: 1 mg Documented by: Magnesium Hydroxide (Milk Of Magnesia 30 Ml Oral.Susp) 30 ml PO DAILY PRN PRN Reason: Constipation Ondansetron HCl (Ondansetron Odt 4 Mg Tab.Rapdis) 4 mg TRANSLINGU DAILY PRN PRN Reason: Nausea Last Admin: 05/21/21 14:02 Dose: 4 mg Documented by: Ondansetron HCl (Ondansetron Odt 8 Mg Tab.Rapdis) 8 mg TRANSLINGU BEDTIME [facility] Last Admin: 05/21/21 20:32 Dose: 8 mg Documented by: Quetiapine Fumarate (Quetiapine Fumarate 50 Mg Tablet) 50 mg PO BEDTIME [facility] Last Admin: 05/21/21 20:33 Dose: 50 mg Documented by: Trazodone HCl (Trazodone Hcl 100 Mg Tablet) 300 mg PO BEDTIME [facility] Last Admin: 05/21/21 20:33 Dose: 300 mg Documented by: Allergies Allergies Allergy/AdvReac Type Severity Reaction Status Date / Time metoclopramide [From Reglan] Allergy Muscle Verified 01/08/21 20:46 cramps haloperidol [From Haldol] AdvReac Severe Dystonia Verified 01/08/21 20:46 prazosin AdvReac Severe Abdominal Verified 04/05/21 10:55 Pain sucralfate [From Carafate] AdvReac Severe vomiting Verified 01/08/21 20:46 band-aids AdvReac Intermediate skin Uncoded 02/04/21 17:52 irritation Assessment & Plan Assessment & Plan (1) PTSD (post-traumatic stress disorder): Status: Acute Code(s): F43.10 - Post-traumatic stress disorder, unspecified (2) Psychogenic nonepileptic seizure: Status: Acute Code(s): F44.5 - Conversion disorder with seizures or convulsions Assessment and Plan: Young woman with complex underlying psychological and psychiatric history suffering from seizure-like episodes with normal EEG. It is important to understand that this type of episodes does not mean that patient is faking. Some recent sophisticated neuro sign to fix studies have suggested that there region is still in the brain though not of epileptic type. This type of syndrome seem to occur or effect people with prior history of psychological or emotional injury, more commonly of sexual type, but there also is likely an underlying cerebral tendency about which we do not have good understanding. Dre e functional MRI studies have only suggested some dysfunction but it is nature and what to do about it is not known. In awake, this condition is more difficult to treat than epilepsy and more difficult to manage. Probably the most effective treatment is some kind of psychological intervention but even that is marginally effective. In some patient it is a self-limiting disease and seems to disappear after a while. Presence of underlying psychiatric disease of a different nature especially of psychotic type makes things much more complicated. There is no particular pharmacological treatment for this condition but if her mood stabilizer is needed, a medicine like oxcarbazepine, lamotrigine or valproic acid can be used. Finally, there are many patients who have combination of nonepileptic spells and epilepsy, who could be help with this type of medications. Plan 05/18: Discussed changes recommended 05/15, Seroquel previously implemented due to potential to lower seizure threshold and participate in sx presentation. Pt agrees to Mirtazapine discontinuation and Sertraline initiation-states she does not recall discussing these on 05/15. Informed pt that this is the rationale for waiting to implement until today when she was clearer. 05/20/21: Increase clonidine to 0.1 mg bid Change Seroquel 50 mg HS prn to standing per pt request. 05/21/21: Discontinue Sertraline- GI upset Pepcid trial to facilitate relief 05/22/21: Increase Pepcid to bid dosing. I spent minutes with the patient and/or on the patient floor today, greater than?50% of which was spent counseling/coordinating care. Patient educated on: medical condition Informed Consent: understands and further education needed Reason for contiued inpatient stay Substantial Risk for: harm to self, inability to function and rapid decompensation
[2021-05-22 18:00] VITALS: BP 98/56; PULSE 84; RESP 18; TEMP 36.7; O2SAT 96
[2021-05-22] MEDS: Ondansetron ODT 8 MG TAB.RAPDIS TRANSLINGU (21:57)
[2021-05-22] MEDS: traZODone HCL 100 MG TABLET 300 MG PO (22:16)
[2021-05-22] MEDS: lamoTRIgine 25 MG TABLET 125 MG PO (22:16)
[2021-05-22] MEDS: hydrOXYzine HCL 50 MG TABLET PO (22:16)
[2021-05-22] MEDS: QUEtiapine Fumarate 50 MG TABLET PO (22:17)
[2021-05-23] MEDS: Famotidine 20 MG TABLET PO ×2 (08:47→21:42)
[2021-05-23] MEDS: cloNIDine HCL 0.1 MG TABLET PO ×2 (09:21→21:42)
--- NOTE | 2021-05-23 17:02 | P.PNPSI_ITS ---
Subjective Subjective Date of Service: 05/23/21 Reason For Visit: PTSD Interim History: Patient seen and discussed. I feel the same Patient reports continued struggles with depression. She has not had any GI complaints today. When asked about SI she was vague about it. She denies any intent of self harm. Review of Systems Review of Systems No recent trauma. Yes all other systems are reviewed and are negative and Unobtainable due to mental status Reports behavioral changes and Reports confusion Psychiatric: Reports abnormal sleep pattern, Reports anxiety, Reports behavioral changes, Reports confusion, Reports depression, Reports difficulty concentrating, Reports hopelessness, Reports irritability, Reports anhedonia, Reports mood swings, Reports paranoia, Reports suicidal ideation and Reports other (dissociative episodes/pseudoseizures) Mental Status Exam Mental Status Exam Narrative: Patient Appearance:?Fatigued Patient Orientation:?Person Level of Consciousness:?Drowsy, Lethargic and Inappropriate (pseudoseizure sx present) Patient Behavior:?Talkative (no verbal communication), Passive, Sedated, Confused and Poor Eye Contact Mood Description:?Withdrawn Affect Description:?Withdrawn Patient Cognition Impaired:?Yes Ability to Follow Directions:?Poor Speech Pattern:?No Speech Memory Description:?Remote Impaired, Immediate Impaired, Long-Term Impaired, Episodic Impaired, Recent Impaired, Working Impaired and Semantic Impaired Hallucinations:?None Delusions:?Not Present Perceptual Disturbances:?Depersonalization and Derealization Thought Process:?Disoriented, Incoherent, Evasive and Confusion Thought Content:?positive for Disoriented, positive for Poverty of Content and positive for Incoherent Depressive Symptoms:?Insomnia and Difficulty Sleeping Abnormal Motor Activity Signs and Symptoms:?Psychomotor Retardation Judgement:?Poor Patient Appearance: Disheveled Patient Orientation: Person, Place, Time and Situation Level of Consciousness: Alert Patient Behavior: Appropriate, Talkative, Cooperative and Good Eye Contact Mood Description: Withdrawn, Depressed, Anxious, Sad and Apprehensive Affect Description: Flat Patient Cognition Impaired: No Ability to Follow Directions: Good Speech Pattern: Clear, Appropriate, Spontaneous Speech and Soft-Spoken Memory Description: Episodic Impaired Diagnostics Vital Signs (24Hr): Vital Signs - 24 hr 05/22/21 18:00 Temperature 98.1 F Pulse Rate 84 Respiratory Rate 18 Blood Pressure 98/56 L Pulse Oximetry 96 BMI result Body Mass Index 31.3 Labs Results: 05/15/21 11:24 05/15/21 11:24 Imaging Radiology Impressions: ITS Impressions Head CT 05/15/21 16:53 IMPRESSION: 1. No evidence of acute intracranial hemorrhage or edematous territorial infarction. 2. Redemonstrated 0.7 cm nodular lesion centered within the suprasellar cistern. Medications Medications Current Medications Al Hydroxide/Mg Hydroxide (Magnesium Hydrox/Alum Hydrox 30 Ml Oral.Susp) 30 ml PO Q6H PRN PRN Reason: Heartburn/Nausea Last Admin: 05/20/21 16:53 Dose: 30 ml Documented by: Aripiprazole (Aripiprazole Er 400 Mg Suser.Syr) 400 mg IM Q28D [facility] Last Admin: 05/08/21 10:01 Dose: 400 mg Documented by: Clonidine HCl (Clonidine Hcl 0.1 Mg Tablet) 0.1 mg PO BID [facility]; Protocol Last Admin: 05/23/21 09:21 Dose: 0.1 mg Documented by: Famotidine (Famotidine 20 Mg Tablet) 20 mg PO BID [facility] Last Admin: 05/23/21 08:47 Dose: 20 mg Documented by: Hydroxyzine HCl (Hydroxyzine Hcl 25 Mg Tablet) 25 mg PO TID PRN PRN Reason: Anxiety Last Admin: 05/20/21 16:58 Dose: 25 mg Documented by: Hydroxyzine HCl (Hydroxyzine Hcl 50 Mg Tablet) 50 mg PO BEDTIME [facility] Last Admin: 05/22/21 22:16 Dose: 50 mg Documented by: Lamotrigine (Lamotrigine 25 Mg Tablet) 125 mg PO BEDTIME [facility] Last Admin: 05/22/21 22:16 Dose: 125 mg Documented by: Lorazepam (Lorazepam 1 Mg Tablet) 1 mg PO Q6H PRN PRN Reason: anxiety Last Admin: 05/20/21 16:58 Dose: 1 mg Documented by: Magnesium Hydroxide (Milk Of Magnesia 30 Ml Oral.Susp) 30 ml PO DAILY PRN PRN Reason: Constipation Ondansetron HCl (Ondansetron Odt 4 Mg Tab.Rapdis) 4 mg TRANSLINGU DAILY PRN PRN Reason: Nausea Last Admin: 05/21/21 14:02 Dose: 4 mg Documented by: Ondansetron HCl (Ondansetron Odt 8 Mg Tab.Rapdis) 8 mg TRANSLINGU BEDTIME [facility] Last Admin: 05/22/21 21:57 Dose: 8 mg Documented by: Quetiapine Fumarate (Quetiapine Fumarate 50 Mg Tablet) 50 mg PO BEDTIME [facility] Last Admin: 05/22/21 22:17 Dose: 50 mg Documented by: Trazodone HCl (Trazodone Hcl 100 Mg Tablet) 300 mg PO BEDTIME [facility] Last Admin: 05/22/21 22:16 Dose: 300 mg Documented by: Allergies Allergies Allergy/AdvReac Type Severity Reaction Status Date / Time metoclopramide [From Reglan] Allergy Muscle Verified 01/08/21 20:46 cramps haloperidol [From Haldol] AdvReac Severe Dystonia Verified 01/08/21 20:46 prazosin AdvReac Severe Abdominal Verified 04/05/21 10:55 Pain sucralfate [From Carafate] AdvReac Severe vomiting Verified 01/08/21 20:46 band-aids AdvReac Intermediate skin Uncoded 02/04/21 17:52 irritation Assessment & Plan Assessment & Plan (1) PTSD (post-traumatic stress disorder): Status: Acute Code(s): F43.10 - Post-traumatic stress disorder, unspecified (2) Psychogenic nonepileptic seizure: Status: Acute Code(s): F44.5 - Conversion disorder with seizures or convulsions Assessment and Plan: Young woman with complex underlying psychological and psychiatric history suffering from seizure-like episodes with normal EEG. It is important to understand that this type of episodes does not mean that patient is faking. Some recent sophisticated neuro sign to fix studies have suggested that there region is still in the brain though not of epileptic type. This type of syndrome seem to occur or effect people with prior history of psychological or emotional injury, more commonly of sexual type, but there also is likely an underlying cerebral tendency about which we do not have good understanding. Some functional MRI studies have only suggested some dysfunction but it is nature and what to do about it is not known. In awake, this condition is more difficult to treat than epilepsy and more difficult to manage. Probably the most effective treatment is some kind of psychological intervention but even that is marginally effective. In some patient it is a self-limiting disease and seems to disappear after a while. Presence of underlying psychiatric disease of a different nature especially of psychotic type makes things much more complicated. There is no particular pharmacological treatment for this condition but if her mood stabilizer is needed, a medicine like oxcarbazepine, lamotrigine or valproic acid can be used. Finally, there are many patients who have combination of nonepileptic spells and epilepsy, who could be help with this type of medications. Plan 05/18: Discussed changes recommended 05/15, Seroquel previously implemented due to potential to lower seizure threshold and participate in sx presentation. Pt agrees to Mirtazapine discontinuation and Sertraline initiation-states she does not recall discussing these on 05/15. Informed pt that this is the rationale for waiting to implement until today when she was clearer. 05/20/21: Increase clonidine to 0.1 mg bid Change Seroquel 50 mg HS prn to standing per pt request. 05/21/21: Discontinue Sertraline- GI upset Pepcid trial to facilitate relief 05/22/21: Increase Pepcid to bid dosing. I spent minutes with the patient and/or on the patient floor today, greater than?50% of which was spent counseling/coordinating care. Reason for contiued inpatient stay Substantial Risk for: harm to self, inability to function and rapid decompensation
[2021-05-23 18:00] VITALS: BP 110/56; PULSE 96; RESP 16
[2021-05-23] MEDS: Ondansetron ODT 8 MG TAB.RAPDIS TRANSLINGU (21:22)
[2021-05-23] MEDS: traZODone HCL 100 MG TABLET 300 MG PO (21:42)
[2021-05-23] MEDS: lamoTRIgine 25 MG TABLET 125 MG PO (21:42)
[2021-05-23] MEDS: QUEtiapine Fumarate 50 MG TABLET PO (21:42)
[2021-05-23] MEDS: hydrOXYzine HCL 50 MG TABLET PO (21:42)
[2021-05-24] MEDS: cloNIDine HCL 0.1 MG TABLET PO ×2 (09:22→21:25)
[2021-05-24] MEDS: Famotidine 20 MG TABLET PO ×2 (09:22→21:25)
[2021-05-24] MEDS: LORazepam 1 MG TABLET PO ×2 (09:26→18:44)
--- NOTE | 2021-05-24 13:01 | HO.PSYCHPN ---
Subjective Subjective Date of Service: 05/24/21 Reason For Visit: PTSD Interim History: Patient seen and discussed. Patient reports difficulty with sleep initiation and maintenance. Says her thoughts race. She reports her mood continues to be the same. She shows some reactivity in her mood. She is depressed. She denies active SI or intent of self-harm. Agrees to melatonin and increase in Seroquel. Review of Systems Review of Systems No recent trauma. Yes all other systems are reviewed and are negative and Unobtainable due to mental status Reports behavioral changes and Reports confusion Psychiatric: Reports abnormal sleep pattern, Reports anxiety, Reports behavioral changes, Reports confusion, Reports depression, Reports difficulty concentrating, Reports hopelessness, Reports irritability, Reports anhedonia, Reports mood swings, Reports paranoia, Reports suicidal ideation and Reports other (dissociative episodes/pseudoseizures) Mental Status Exam Mental Status Exam Narrative: Patient Appearance:?Fatigued Patient Orientation:?x3 Level of Consciousness:?Alert Patient Behavior:? Passive and Poor Eye Contact Mood Description:?Withdrawn Affect Description:?Withdrawn Patient Cognition Impaired:?Yes Ability to Follow Directions:?good Speech Pattern:?No Speech Memory Description:?Remote Impaired, Immediate Impaired, Cna Hospice Impaired, Episodic Impaired, Recent Impaired, Working Impaired and Semantic Impaired Hallucinations:?None Delusions:?Not Present Perceptual Disturbances:?Depersonalization and Derealization Thought Process:?goal directed Thought Content: Poverty of Content Depressive Symptoms:?Insomnia and Difficulty Sleeping Abnormal Motor Activity Signs and Symptoms:?Psychomotor Retardation Judgement:?Poor Patient Appearance: Disheveled Patient Orientation: Person, Place, Time and Situation Level of Consciousness: Alert Patient Behavior: Appropriate, Talkative, Cooperative and Good Eye Contact Mood Description: Withdrawn, Depressed, Anxious, Sad and Apprehensive Affect Description: Flat Patient Cognition Impaired: No Ability to Follow Directions: Good Speech Pattern: Clear, Appropriate, Spontaneous Speech and Soft-Spoken Memory Description: Episodic Impaired Diagnostics Vital Signs (24Hr): Vital Signs - 24 hr 05/23/21 18:00 Pulse Rate 96 Respiratory Rate 16 Blood Pressure 110/56 L BMI result Body Mass Index 31.3 Labs Results: 05/15/21 11:24 05/15/21 11:24 Imaging Radiology Impressions: ITS Impressions Head CT 05/15/21 16:53 IMPRESSION: 1. No evidence of acute intracranial hemorrhage or edematous territorial infarction. 2. Redemonstrated 0.7 cm nodular lesion centered within the suprasellar cistern. Medications Medications Current Medications Al Hydroxide/Mg Hydroxide (Magnesium Hydrox/Alum Hydrox 30 Ml Oral.Susp) 30 ml PO Q6H PRN PRN Reason: Heartburn/Nausea Last Admin: 05/20/21 16:53 Dose: 30 ml Documented by: Aripiprazole (Aripiprazole Er 400 Mg Suser.Syr) 400 mg IM Q28D [facility] Last Admin: 05/08/21 10:01 Dose: 400 mg Documented by: Clonidine HCl (Clonidine Hcl 0.1 Mg Tablet) 0.1 mg PO BID [facility]; Protocol Last Admin: 05/24/21 09:22 Dose: 0.1 mg Documented by: Famotidine (Famotidine 20 Mg Tablet) 20 mg PO BID [facility] Last Admin: 05/24/21 09:22 Dose: 20 mg Documented by: Hydroxyzine HCl (Hydroxyzine Hcl 25 Mg Tablet) 25 mg PO TID PRN PRN Reason: Anxiety Last Admin: 05/20/21 16:58 Dose: 25 mg Documented by: Hydroxyzine HCl (Hydroxyzine Hcl 50 Mg Tablet) 50 mg PO BEDTIME [facility] Last Admin: 05/23/21 21:42 Dose: 50 mg Documented by: Lamotrigine (Lamotrigine 25 Mg Tablet) 125 mg PO BEDTIME [facility] Last Admin: 05/23/21 21:42 Dose: 125 mg Documented by: Lorazepam (Lorazepam 1 Mg Tablet) 1 mg PO Q6H PRN PRN Reason: anxiety Last Admin: 05/24/21 09:26 Dose: 1 mg Documented by: Magnesium Hydroxide (Milk Of Magnesia 30 Ml Oral.Susp) 30 ml PO DAILY PRN PRN Reason: Constipation Ondansetron HCl (Ondansetron Odt 4 Mg Tab.Rapdis) 4 mg TRANSLINGU DAILY PRN PRN Reason: Nausea Last Admin: 05/21/21 14:02 Dose: 4 mg Documented by: Ondansetron HCl (Ondansetron Odt 8 Mg Tab.Rapdis) 8 mg TRANSLINGU BEDTIME [facility] Last Admin: 05/23/21 21:22 Dose: 8 mg Documented by: Quetiapine Fumarate (Quetiapine Fumarate 50 Mg Tablet) 50 mg PO BEDTIME [facility] Last Admin: 05/23/21 21:42 Dose: 50 mg Documented by: Trazodone HCl (Trazodone Hcl 100 Mg Tablet) 300 mg PO BEDTIME [facility] Last Admin: 05/23/21 21:42 Dose: 300 mg Documented by: Allergies Allergies Allergy/AdvReac Type Severity Reaction Status Date / Time metoclopramide [From Reglan] Allergy Muscle Verified 01/08/21 20:46 cramps haloperidol [From Haldol] AdvReac Severe Dystonia Verified 01/08/21 20:46 prazosin AdvReac Severe Abdominal Verified 04/05/21 10:55 Pain sucralfate [From Carafate] AdvReac Severe vomiting Verified 01/08/21 20:46 band-aids AdvReac Intermediate skin Uncoded 02/04/21 17:52 irritation Assessment & Plan Assessment & Plan (1) PTSD (post-traumatic stress disorder): Status: Acute Code(s): F43.10 - Post-traumatic stress disorder, unspecified (2) Psychogenic nonepileptic seizure: Status: Acute Code(s): F44.5 - Conversion disorder with seizures or convulsions Assessment and Plan: Young woman with complex underlying psychological and psychiatric history suffering from seizure-like episodes with normal EEG. It is important to understand that this type of episodes does not mean that patient is faking. Some recent sophisticated neuro sign to fix studies have suggested that there region is still in the brain though not of epileptic type. This type of syndrome seem to occur or effect people with prior history of psychological or emotional injury, more commonly of sexual type, but there also is likely an underlying cerebral tendency about which we do not have good understanding. Some functional MRI studies have only suggested some dysfunction but it is nature and what to do about it is not known. In awake, this condition is more difficult to treat than epilepsy and more difficult to manage. Probably the most effective treatment is some kind of psychological intervention but even that is marginally effective. In some patient it is a self-limiting disease and seems to disappear after a while. Presence of underlying psychiatric disease of a different nature especially of psychotic type makes things much more complicated. There is no particular pharmacological treatment for this condition but if her mood stabilizer is needed, a medicine like oxcarbazepine, lamotrigine or valproic acid can be used. Finally, there are many patients who have combination of nonepileptic spells and epilepsy, who could be help with this type of medications. Plan 05/18: Discussed changes recommended 05/15, Seroquel previously implemented due to potential to lower seizure threshold and participate in sx presentation. Pt agrees to Mirtazapine discontinuation and Sertraline initiation-states she does not recall discussing these on 05/15. Informed pt that this is the rationale for waiting to implement until today when she was clearer. 05/20/21: Increase clonidine to 0.1 mg bid Change Seroquel 50 mg HS prn to standing per pt request. 05/21/21: Discontinue Sertraline- GI upset Pepcid trial to facilitate relief 05/22/21: Increase Pepcid to bid dosing. 05/24 Increase Seroquel to 100 mg HS and add Melatonin 6 mg HS I spent minutes with the patient and/or on the patient floor today, greater than?50% of which was spent counseling/coordinating care. Reason for contiued inpatient stay Substantial Risk for: inability to function and rapid decompensation
[2021-05-24 18:00] VITALS: BP 106/56; PULSE 94; TEMP 36.9
[2021-05-24] MEDS: hydrOXYzine HCL 50 MG TABLET PO (21:25)
[2021-05-24] MEDS: QUEtiapine Fumarate 100 MG TABLET PO (21:25)
[2021-05-24] MEDS: lamoTRIgine 25 MG TABLET 125 MG PO (21:26)
[2021-05-24] MEDS: Ondansetron ODT 8 MG TAB.RAPDIS TRANSLINGU (21:26)
[2021-05-24] MEDS: traZODone HCL 100 MG TABLET 300 MG PO (21:27)
[2021-05-24] MEDS: Melatonin 3 MG TABLET 6 MG PO (21:27)
[2021-05-25] MEDS: LORazepam 1 MG TABLET PO (01:57)
[2021-05-25] MEDS: hydrOXYzine HCL 25 MG TABLET PO (01:58)
[2021-05-25 06:00] VITALS: BP 100/55; PULSE 93; RESP 14; TEMP 36.5; O2SAT 98
[2021-05-25] MEDS: Famotidine 20 MG TABLET PO ×2 (08:48→21:00)
--- NOTE | 2021-05-25 14:40 | HO.PSYCHPN ---
Subjective Subjective Date of Service: 05/25/21 Reason For Visit: PTSD Subjective Notes: Conditional Voluntary Healthcare Proxy: No Guardianship: No Medical Problems Affecting Mental Status: No Interim History: Team reports anxiety regarding father's visit. Pt reports it was OK . We talked about the [facility] and filling out my forms. Seroquel increased, Melatonin added by weekend coverage which pt is tolerating. Reports current milieu is too stimulating. Discussed incident where she was sleeping last night and was awakened and asked to move to another unit at 12:30a.m. Expressed disbelief and upset regarding this request, having sleep interrupted and being asked to change treatment teams in the middle of the night. Review of [facility] upcoming appointments 1. June 29, 2021-Virtual appt with Dr. Moriah Tsai [phone] 9:15am. 2. July 29, 2021- Appt with Dr. Crandall 3. August 06, 2021-Appt with Dr. Chan (in person). Pt having some anticipatory anxiety regarding DBT consult on 06/01/21. Discussed concerns. 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 Will begin 05/26 with readings of fellow patients who have experienced similiar sx. Medication Compliance: Yes Side effects from medications: No (GI SE decreased since Sertraline discontinued) Attending Groups: Intermittent Review of Systems Acute medical concerns: No Medical Review of Systems: unchanged Review of Systems Psychiatric: Reports abnormal sleep pattern, Reports anxiety, Reports depression, Reports difficulty concentrating, Reports hopelessness, Reports irritability, Reports anhedonia, Reports mood swings, Reports paranoia and Reports suicidal ideation Mental Status Exam Mental Status Exam Patient Appearance: Appropriate Patient Orientation: Person, Place, Time and Situation Level of Consciousness: Alert Patient Behavior: Talkative and Good Eye Contact Mood Description: Depressed and Apprehensive Affect Description: Flat Patient Cognition Impaired: No Ability to Follow Directions: Good Speech Pattern: Spontaneous Speech Memory Description: Intact Hallucinations: None Delusions: Paranoid Ideation Perceptual Disturbances: Depersonalization and Derealization Thought Process: Distracted and Rumination Thought Content: positive for Perseveration and positive for Suicidal Ideation Depressive Symptoms: Increased Anxiety, Increased Irritability and Thoughts of /Suicide Judgement: Fair Diagnostics Vital Signs (24Hr): Vital Signs - 24 hr 05/24/21 18:00 05/25/21 06:00 Temperature 98.4 F 97.7 F Pulse Rate 94 93 Respiratory Rate 14 Blood Pressure 106/56 L 100/55 L Pulse Oximetry 98 BMI result Body Mass Index 31.3 Labs Results: 05/15/21 11:24 05/15/21 11:24 Imaging Radiology Impressions: ITS Impressions Head CT 05/15/21 16:53 IMPRESSION: 1. No evidence of acute intracranial hemorrhage or edematous territorial infarction. 2. Redemonstrated 0.7 cm nodular lesion centered within the suprasellar cistern. Medications Medications Current Medications Al Hydroxide/Mg Hydroxide (Magnesium Hydrox/Alum Hydrox 30 Ml Oral.Susp) 30 ml PO Q6H PRN PRN Reason: Heartburn/Nausea Last Admin: 05/20/21 16:53 Dose: 30 ml Documented by: Aripiprazole (Aripiprazole Er 400 Mg Suser.Syr) 400 mg IM Q28D [facility] Last Admin: 05/08/21 10:01 Dose: 400 mg Documented by: Clonidine HCl (Clonidine Hcl 0.1 Mg Tablet) 0.1 mg PO BID [facility]; Protocol Last Admin: 05/25/21 08:49 Dose: Not Given Documented by: Famotidine (Famotidine 20 Mg Tablet) 20 mg PO BID [facility] Last Admin: 05/25/21 08:48 Dose: 20 mg Documented by: Hydroxyzine HCl (Hydroxyzine Hcl 25 Mg Tablet) 25 mg PO TID PRN PRN Reason: Anxiety Last Admin: 05/25/21 01:58 Dose: 25 mg Documented by: Hydroxyzine HCl (Hydroxyzine Hcl 50 Mg Tablet) 50 mg PO BEDTIME [facility] Last Admin: 05/24/21 21:25 Dose: 50 mg Documented by: Lamotrigine (Lamotrigine 25 Mg Tablet) 125 mg PO BEDTIME [facility] Last Admin: 05/24/21 21:26 Dose: 125 mg Documented by: Lorazepam (Lorazepam 1 Mg Tablet) 1 mg PO Q6H PRN PRN Reason: anxiety Last Admin: 05/25/21 01:57 Dose: 1 mg Documented by: Magnesium Hydroxide (Milk Of Magnesia 30 Ml Oral.Susp) 30 ml PO DAILY PRN PRN Reason: Constipation Melatonin (Melatonin 3 Mg Tablet) 6 mg PO BEDTIME [facility] Last Admin: 05/24/21 21:27 Dose: 6 mg Documented by: Ondansetron HCl (Ondansetron Odt 4 Mg Tab.Rapdis) 4 mg TRANSLINGU DAILY PRN PRN Reason: Nausea Last Admin: 05/21/21 14:02 Dose: 4 mg Documented by: Ondansetron HCl (Ondansetron Odt 8 Mg Tab.Rapdis) 8 mg TRANSLINGU BEDTIME [facility] Last Admin: 05/24/21 21:26 Dose: 8 mg Documented by: Quetiapine Fumarate (Quetiapine Fumarate 100 Mg Tablet) 100 mg PO BEDTIME [facility] Last Admin: 05/24/21 21:25 Dose: 100 mg Documented by: Trazodone HCl (Trazodone Hcl 100 Mg Tablet) 300 mg PO BEDTIME [facility] Last Admin: 05/24/21 21:27 Dose: 300 mg Documented by: Allergies Allergies Allergy/AdvReac Type Severity Reaction Status Date / Time metoclopramide [From Reglan] Allergy Muscle Verified 01/08/21 20:46 cramps haloperidol [From Haldol] AdvReac Severe Dystonia Verified 01/08/21 20:46 prazosin AdvReac Severe Abdominal Verified 04/05/21 10:55 Pain sucralfate [From Carafate] AdvReac Severe vomiting Verified 01/08/21 20:46 band-aids AdvReac Intermediate skin Uncoded 02/04/21 17:52 irritation Assessment & Plan Assessment & Plan (1) PTSD (post-traumatic stress disorder): Status: Acute Code(s): F43.10 - Post-traumatic stress disorder, unspecified (2) Psychogenic nonepileptic seizure: Status: Acute Code(s): F44.5 - Conversion disorder with seizures or convulsions Assessment and Plan: Young woman with complex underlying psychological and psychiatric history suffering from seizure-like episodes with normal EEG. It is important to understand that this type of episodes does not mean that patient is faking. Some recent sophisticated neuro sign to fix studies have suggested that there region is still in the brain though not of epileptic type. This type of syndrome seem to occur or effect people with prior history of psychological or emotional injury, more commonly of sexual type, but there also is likely an underlying cerebral tendency about which we do not have good understanding. Some functional MRI studies have only suggested some dysfunction but it is nature and what to do about it is not known. In awake, this condition is more difficult to treat than epilepsy and more difficult to manage. Probably the most effective treatment is some kind of psychological intervention but even that is marginally effective. In some patient it is a self-limiting disease and seems to disappear after a while. Presence of underlying psychiatric disease of a different nature especially of psychotic type makes things much more complicated. There is no particular pharmacological treatment for this condition but if her mood stabilizer is needed, a medicine like oxcarbazepine, lamotrigine or valproic acid can be used. Finally, there are many patients who have combination of nonepileptic spells and epilepsy, who could be help with this type of medications. Plan 05/18: Discussed changes recommended 05/15, Seroquel previously implemented due to potential to lower seizure threshold and participate in sx presentation. Pt agrees to Mirtazapine discontinuation and Sertraline initiation-states she does not recall discussing these on 05/15. Informed pt that this is the rationale for waiting to implement until today when she was clearer. 05/20/21: Increase clonidine to 0.1 mg bid Change Seroquel 50 mg HS prn to standing per pt request. 05/21/21: Discontinue Sertraline- GI upset Pepcid trial to facilitate relief 05/22/21: Increase Pepcid to bid dosing. 05/24 Increase Seroquel to 100 mg HS and add Melatonin 6 mg HS 05/25/21: Continue current plan I spent minutes with the patient and/or on the patient floor today, greater than?50% of which was spent counseling/coordinating care. Patient educated on: medication risk/benefits and therapeutic strategies Informed Consent: understands Reason for contiued inpatient stay Substantial Risk for: harm to self, inability to function and rapid decompensation
[2021-05-25] MEDS: Ondansetron ODT 8 MG TAB.RAPDIS TRANSLINGU (20:19)
[2021-05-25 20:30] VITALS: BP 113/58; PULSE 111; TEMP 36.3; O2SAT 98
[2021-05-25] MEDS: hydrOXYzine HCL 50 MG TABLET PO (20:58)
[2021-05-25] MEDS: traZODone HCL 100 MG TABLET 300 MG PO (20:59)
[2021-05-25] MEDS: Melatonin 3 MG TABLET 6 MG PO (20:59)
[2021-05-25] MEDS: lamoTRIgine 25 MG TABLET 125 MG PO (20:59)
[2021-05-25] MEDS: cloNIDine HCL 0.1 MG TABLET PO (21:00)
[2021-05-25] MEDS: QUEtiapine Fumarate 100 MG TABLET PO (21:00)
[2021-05-26 08:30] VITALS: BP 109/58; PULSE 87; TEMP 36.7
[2021-05-26] MEDS: Famotidine 20 MG TABLET PO ×2 (09:07→22:03)
[2021-05-26] MEDS: cloNIDine HCL 0.1 MG TABLET PO ×2 (09:08→22:02)
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
[2021-05-26 18:00] VITALS: BP 107/58; PULSE 85; RESP 16; TEMP 36.8; O2SAT 99
[2021-05-26] MEDS: LORazepam 1 MG TABLET PO (18:06)
[2021-05-26] MEDS: Ondansetron ODT 8 MG TAB.RAPDIS TRANSLINGU (21:58)
[2021-05-26] MEDS: lamoTRIgine 25 MG TABLET 125 MG PO (21:59)
[2021-05-26] MEDS: traZODone HCL 100 MG TABLET 300 MG PO (22:00)
[2021-05-26] MEDS: Melatonin 3 MG TABLET 6 MG PO (22:01)
[2021-05-26] MEDS: hydrOXYzine HCL 50 MG TABLET PO (22:03)
[2021-05-26] MEDS: QUEtiapine Fumarate 100 MG TABLET PO (22:03)
[2021-05-27 09:00] VITALS: BP 111/69; PULSE 130; TEMP 36.6
[2021-05-27] MEDS: cloNIDine HCL 0.1 MG TABLET PO ×2 (09:10→22:20)
[2021-05-27] MEDS: LORazepam 1 MG TABLET PO (09:44)
[2021-05-27] MEDS: Famotidine 20 MG TABLET PO ×2 (11:52→22:20)
--- NOTE | 2021-05-27 17:36 | P.PNPSI_ITS ---
Subjective Subjective Date of Service: 05/27/21 Reason For Visit: PTSD Subjective Notes: Conditional Voluntary Healthcare Proxy: No Guardianship: No Medical Problems Affecting Mental Status: No Interim History: Visited by her father. Visable in the milieu and common areas today. No extended individual meeting with tw today. Denies current med SE or adverse responses Sleep is somewhat improved with Seroquel Review of pseudoseizure treatment material-pt is willing to begin work on this. Medication Compliance: Yes Side effects from medications: No Attending Groups: Intermittent Review of Systems Acute medical concerns: No Medical Review of Systems: unchanged Review of Systems Psychiatric: Reports abnormal sleep pattern, Reports anxiety, Reports depression, Reports difficulty concentrating, Reports hopelessness, Reports irritability, Reports anhedonia, Reports mood swings, Reports paranoia and Reports suicidal ideation Mental Status Exam Mental Status Exam Patient Appearance: Appropriate Patient Orientation: Person, Place, Time and Situation Level of Consciousness: Alert Patient Behavior: Talkative and Good Eye Contact Mood Description: Depressed and Apprehensive Affect Description: Flat Patient Cognition Impaired: No Ability to Follow Directions: Good Speech Pattern: Spontaneous Speech Memory Description: Intact Hallucinations: None Delusions: Paranoid Ideation Perceptual Disturbances: Depersonalization and Derealization Thought Process: Distracted and Rumination Thought Content: positive for Perseveration and positive for Suicidal Ideation Depressive Symptoms: Increased Anxiety, Increased Irritability and Thoughts of /Suicide Judgement: Fair Diagnostics Vital Signs (24Hr): Vital Signs - 24 hr 05/26/21 18:00 05/27/21 09:00 Temperature 98.2 F 97.8 F Pulse Rate 85 130 H Respiratory Rate 16 Blood Pressure 107/58 L 111/69 Pulse Oximetry 99 BMI result Body Mass Index 31.3 Labs Results: 05/15/21 11:24 05/15/21 11:24 Imaging Radiology Impressions: ITS Impressions Head CT 05/15/21 16:53 IMPRESSION: 1. No evidence of acute intracranial hemorrhage or edematous territorial infarction. 2. Redemonstrated 0.7 cm nodular lesion centered within the suprasellar cistern. Medications Medications Current Medications Al Hydroxide/Mg Hydroxide (Magnesium Hydrox/Alum Hydrox 30 Ml Oral.Susp) 30 ml PO Q6H PRN PRN Reason: Heartburn/Nausea Last Admin: 05/20/21 16:53 Dose: 30 ml Documented by: Aripiprazole (Aripiprazole Er 400 Mg Suser.Syr) 400 mg IM Q28D [facility] Last Admin: 05/08/21 10:01 Dose: 400 mg Documented by: Clonidine HCl (Clonidine Hcl 0.1 Mg Tablet) 0.1 mg PO BID [facility]; Protocol Last Admin: 05/27/21 09:10 Dose: 0.1 mg Documented by: Famotidine (Famotidine 20 Mg Tablet) 20 mg PO BID [facility] Last Admin: 05/27/21 11:52 Dose: 20 mg Documented by: Hydroxyzine HCl (Hydroxyzine Hcl 25 Mg Tablet) 25 mg PO TID PRN PRN Reason: Anxiety Last Admin: 05/25/21 01:58 Dose: 25 mg Documented by: Hydroxyzine HCl (Hydroxyzine Hcl 50 Mg Tablet) 50 mg PO BEDTIME [facility] Last Admin: 05/26/21 22:03 Dose: 50 mg Documented by: Lamotrigine (Lamotrigine 25 Mg Tablet) 125 mg PO BEDTIME [facility] Last Admin: 05/26/21 21:59 Dose: 125 mg Documented by: Lorazepam (Lorazepam 1 Mg Tablet) 1 mg PO Q6H PRN PRN Reason: anxiety Last Admin: 05/27/21 09:44 Dose: 1 mg Documented by: Magnesium Hydroxide (Milk Of Magnesia 30 Ml Oral.Susp) 30 ml PO DAILY PRN PRN Reason: Constipation Melatonin (Melatonin 3 Mg Tablet) 6 mg PO BEDTIME [facility] Last Admin: 05/26/21 22:01 Dose: 6 mg Documented by: Ondansetron HCl (Ondansetron Odt 4 Mg Tab.Rapdis) 4 mg TRANSLINGU DAILY PRN PRN Reason: Nausea Last Admin: 05/21/21 14:02 Dose: 4 mg Documented by: Ondansetron HCl (Ondansetron Odt 8 Mg Tab.Rapdis) 8 mg TRANSLINGU BEDTIME [facility] Last Admin: 05/26/21 21:58 Dose: 8 mg Documented by: Quetiapine Fumarate (Quetiapine Fumarate 100 Mg Tablet) 100 mg PO BEDTIME [facility] Last Admin: 05/26/21 22:03 Dose: 100 mg Documented by: Quetiapine Fumarate (Quetiapine Fumarate 50 Mg Tablet) 50 mg PO BID PRN PRN Reason: anxiety Trazodone HCl (Trazodone Hcl 100 Mg Tablet) 300 mg PO BEDTIME [facility] Last Admin: 05/26/21 22:00 Dose: 300 mg Documented by: Allergies Allergies Allergy/AdvReac Type Severity Reaction Status Date / Time metoclopramide [From Reglan] Allergy Muscle Verified 01/08/21 20:46 cramps haloperidol [From Haldol] AdvReac Severe Dystonia Verified 01/08/21 20:46 prazosin AdvReac Severe Abdominal Verified 04/05/21 10:55 Pain sertraline AdvReac Severe Gastrointestinal Verified 05/25/21 17:31 Upset sucralfate [From Carafate] AdvReac Severe vomiting Verified 01/08/21 20:46 band-aids AdvReac Intermediate skin Uncoded 02/04/21 17:52 irritation Assessment & Plan Assessment & Plan (1) PTSD (post-traumatic stress disorder): Status: Acute Code(s): F43.10 - Post-traumatic stress disorder, unspecified (2) Psychogenic nonepileptic seizure: Status: Acute Code(s): F44.5 - Conversion disorder with seizures or convulsions Assessment and Plan: Young woman with complex underlying psychological and psychiatric history suffering from seizure-like episodes with normal EEG. It is important to understand that this type of episodes does not mean that patient is faking. Some recent sophisticated neuro sign to fix studies have suggested that there region is still in the brain though not of epileptic type. This type of syndrome seem to occur or effect people with prior history of psychological or emotional injury, more commonly of sexual type, but there also is likely an underlying cerebral tendency about which we do not have good understanding. Some functional MRI studies have only suggested some dysfunction but it is nature and what to do about it is not known. In awake, this condition is more difficult to treat than epilepsy and more difficult to manage. Probably the most effective treatment is some kind of psychological intervention but even that is marginally effective. In some patient it is a self-limiting disease and seems to disappear after a while. Presence of underlying psychiatric disease of a different nature especially of psychotic type makes things much more complicated. There is no particular pharmacological treatment for this condition but if her mood stabilizer is needed, a medicine like oxcarbazepine, lamotrigine or valproic acid can be used. Finally, there are many patients who have combination of nonepileptic spells and epilepsy, who could be help with this type of medications. Plan 05/18: Discussed changes recommended 05/15, Seroquel previously implemented due to potential to lower seizure threshold and participate in sx presentation. Pt agrees to Mirtazapine discontinuation and Sertraline initiation-states she does not recall discussing these on 05/15. Informed pt that this is the rationale for waiting to implement until today when she was clearer. 05/20/21: Increase clonidine to 0.1 mg bid Change Seroquel 50 mg HS prn to standing per pt request. 05/21/21: Discontinue Sertraline- GI upset Pepcid trial to facilitate relief 05/22/21: Increase Pepcid to bid dosing. 05/24 Increase Seroquel to 100 mg HS and add Melatonin 6 mg HS 05/25/21: Continue current plan 05/26/21 Discussion of placing Sertraline on adverse respons list which she agrees with Seroquel prn added Formulating her list of questions for interview with Dr. Gonzalez - EMDR -His thoughts on why pseudoseizures are presenting -Best DBT skills-currently switch she reports is her best grounding resource. 05/27/21 Continue current plan I spent minutes with the patient and/or on the patient floor today, greater than?50% of which was spent counseling/coordinating care. Informed Consent: understands and further education needed Reason for contiued inpatient stay Substantial Risk for: harm to self, inability to function and rapid decompensation
[2021-05-27 18:00] VITALS: BP 128/75; PULSE 72; RESP 18; TEMP 36.8; O2SAT 98
[2021-05-27] MEDS: Ondansetron ODT 8 MG TAB.RAPDIS TRANSLINGU (21:56)
[2021-05-27] MEDS: lamoTRIgine 25 MG TABLET 125 MG PO (22:18)
[2021-05-27] MEDS: traZODone HCL 100 MG TABLET 300 MG PO (22:19)
[2021-05-27] MEDS: Melatonin 3 MG TABLET 6 MG PO (22:19)
[2021-05-27] MEDS: QUEtiapine Fumarate 100 MG TABLET PO (22:21)
[2021-05-27] MEDS: hydrOXYzine HCL 50 MG TABLET PO (22:21)
[2021-05-28 06:00] VITALS: BP 101/62; PULSE 105; RESP 14; TEMP 36.1; O2SAT 99
[2021-05-28] MEDS: Famotidine 20 MG TABLET PO ×2 (08:56→22:42)
[2021-05-28] MEDS: cloNIDine HCL 0.1 MG TABLET PO ×2 (08:56→22:40)
--- NOTE | 2021-05-28 13:26 | P.PNPSI_ITS ---
Subjective Subjective Date of Service: 05/28/21 Reason For Visit: PTSD Interim History: Delaney preparing for discharge to her assigned nursing home. Given first treatment program exercise for pseudoseizure mgt. Medication Compliance: Yes Side effects from medications: No Attending Groups: No Review of Systems Acute medical concerns: No Review of Systems Psychiatric: Reports abnormal sleep pattern, Reports anxiety, Reports depression, Reports difficulty concentrating, Reports hopelessness, Reports irritability, Reports anhedonia, Reports mood swings, Reports paranoia and Reports suicidal ideation Mental Status Exam Mental Status Exam Patient Appearance: Appropriate Patient Orientation: Person, Place, Time and Situation Level of Consciousness: Alert Patient Behavior: Talkative and Good Eye Contact Mood Description: Depressed and Apprehensive Affect Description: Flat Patient Cognition Impaired: No Ability to Follow Directions: Good Speech Pattern: Spontaneous Speech Memory Description: Intact Hallucinations: None Delusions: Paranoid Ideation Perceptual Disturbances: Depersonalization and Derealization Thought Process: Distracted and Rumination Thought Content: positive for Perseveration and positive for Suicidal Ideation Depressive Symptoms: Increased Anxiety, Increased Irritability and Thoughts of /Suicide Judgement: Fair Diagnostics Vital Signs (24Hr): Vital Signs - 24 hr 05/27/21 18:00 05/28/21 06:00 Temperature 98.2 F 97 F Pulse Rate 72 105 H Respiratory Rate 18 14 Blood Pressure 128/75 101/62 Pulse Oximetry 98 99 BMI result Body Mass Index 31.3 Labs Results: 05/15/21 11:24 05/15/21 11:24 Imaging Radiology Impressions: ITS Impressions Head CT 05/15/21 16:53 IMPRESSION: 1. No evidence of acute intracranial hemorrhage or edematous territorial infarction. 2. Redemonstrated 0.7 cm nodular lesion centered within the suprasellar cistern. Medications Medications Current Medications Al Hydroxide/Mg Hydroxide (Magnesium Hydrox/Alum Hydrox 30 Ml Oral.Susp) 30 ml PO Q6H PRN PRN Reason: Heartburn/Nausea Last Admin: 05/20/21 16:53 Dose: 30 ml Documented by: Aripiprazole (Aripiprazole Er 400 Mg Suser.Syr) 400 mg IM Q28D [facility] Last Admin: 05/08/21 10:01 Dose: 400 mg Documented by: Clonidine HCl (Clonidine Hcl 0.1 Mg Tablet) 0.1 mg PO BID [facility]; Protocol Last Admin: 05/28/21 08:56 Dose: 0.1 mg Documented by: Famotidine (Famotidine 20 Mg Tablet) 20 mg PO BID [facility] Last Admin: 05/28/21 08:56 Dose: 20 mg Documented by: Hydroxyzine HCl (Hydroxyzine Hcl 25 Mg Tablet) 25 mg PO TID PRN PRN Reason: Anxiety Last Admin: 05/25/21 01:58 Dose: 25 mg Documented by: Hydroxyzine HCl (Hydroxyzine Hcl 50 Mg Tablet) 50 mg PO BEDTIME [facility] Last Admin: 05/27/21 22:21 Dose: 50 mg Documented by: Lamotrigine (Lamotrigine 25 Mg Tablet) 125 mg PO BEDTIME [facility] Last Admin: 05/27/21 22:18 Dose: 125 mg Documented by: Lorazepam (Lorazepam 1 Mg Tablet) 1 mg PO Q6H PRN PRN Reason: anxiety Last Admin: 05/27/21 09:44 Dose: 1 mg Documented by: Magnesium Hydroxide (Milk Of Magnesia 30 Ml Oral.Susp) 30 ml PO DAILY PRN PRN Reason: Constipation Melatonin (Melatonin 3 Mg Tablet) 6 mg PO BEDTIME [facility] Last Admin: 05/27/21 22:19 Dose: 6 mg Documented by: Ondansetron HCl (Ondansetron Odt 4 Mg Tab.Rapdis) 4 mg TRANSLINGU DAILY PRN PRN Reason: Nausea Last Admin: 05/21/21 14:02 Dose: 4 mg Documented by: Ondansetron HCl (Ondansetron Odt 8 Mg Tab.Rapdis) 8 mg TRANSLINGU BEDTIME [facility] [place] Last Admin: 05/27/21 21:56 Dose: 8 mg Documented by: Quetiapine Fumarate (Quetiapine Fumarate 100 Mg Tablet) 100 mg PO BEDTIME [facility] [place] Last Admin: 05/27/21 22:21 Dose: 100 mg Documented by: Quetiapine Fumarate (Quetiapine Fumarate 50 Mg Tablet) 50 mg PO BID PRN PRN Reason: anxiety Trazodone HCl (Trazodone Hcl 100 Mg Tablet) 300 mg PO BEDTIME [facility] Last Admin: 05/27/21 22:19 Dose: 300 mg Documented by: Allergies Allergies Allergy/AdvReac Type Severity Reaction Status Date / Time metoclopramide [From Reglan] Allergy Muscle Verified 01/08/21 20:46 cramps haloperidol [From Haldol] AdvReac Severe Dystonia Verified 01/08/21 20:46 prazosin AdvReac Severe Abdominal Verified 04/05/21 10:55 Pain sertraline AdvReac Severe Gastrointestinal Verified 05/25/21 17:31 Upset sucralfate [From Carafate] AdvReac Severe vomiting Verified 01/08/21 20:46 band-aids AdvReac Intermediate skin Uncoded 02/04/21 17:52 irritation Assessment & Plan Assessment & Plan (1) PTSD (post-traumatic stress disorder): Status: Acute Code(s): F43.10 - Post-traumatic stress disorder, unspecified (2) Psychogenic nonepileptic seizure: Status: Acute Code(s): F44.5 - Conversion disorder with seizures or convulsions Assessment and Plan: Young woman with complex underlying psychological and psychiatric history suffering from seizure-like episodes with normal EEG. It is important to understand that this type of episodes does not mean that patient is faking. Some recent sophisticated neuro sign to fix studies have suggested that there region is still in the brain though not of epileptic type. This type of syndrome seem to occur or effect people with prior history of psychological or emotional injury, more commonly of sexual type, but there also is likely an underlying cerebral tendency about which we do not have good understanding. Some functional MRI studies have only suggested some dysfunction but it is nature and what to do about it is not known. In awake, this condition is more difficult to treat than epilepsy and more difficult to manage. Probably the most effective treatment is some kind of psychological intervention but even that is marginally effective. In some patient it is a self-limiting disease and seems to disappear after a while. Presence of underlying psychiatric disease of a different nature especially of psychotic type makes things much more compli cated. There is no particular pharmacological treatment for this condition but if her mood stabilizer is needed, a medicine like oxcarbazepine, lamotrigine or valproic acid can be used. Finally, there are many patients who have combination of nonepileptic spells and epilepsy, who could be help with this type of medications. Plan 05/18: Discussed changes recommended 05/15, Seroquel previously implemented due to potential to lower seizure threshold and participate in sx presentation. Pt agrees to Mirtazapine discontinuation and Sertraline initiation-states she does not recall discussing these on 05/15. Informed pt that this is the rationale for waiting to implement until today when she was clearer. 05/20/21: Increase clonidine to 0.1 mg bid Change Seroquel 50 mg HS prn to standing per pt request. 05/21/21: Discontinue Sertraline- GI upset Pepcid trial to facilitate relief 05/22/21: Increase Pepcid to bid dosing. 05/24 Increase Seroquel to 100 mg HS and add Melatonin 6 mg HS 05/25/21: Continue current plan 05/26/21 Discussion of placing Sertraline on adverse respons list which she agrees with Seroquel prn added Formulating her list of questions for interview with Dr. Gonzalez - EMDR -His thoughts on why pseudoseizures are presenting -Best DBT skills-currently switch she reports is her best grounding resource. 05/27/21 Continue current plan 05/28/21 Support in transition Initiation of pseudoseizure treatment plan/educational program- understanding seizures, and distinguishing situations, moods and thoughts. Review of seizure log. I spent minutes with the patient and/or on the patient floor today, greater than?50% of which was spent counseling/coordinating care. Patient educated on: therapeutic strategies Informed Consent: further education needed Reason for contiued inpatient stay Substantial Risk for: harm to self, inability to function and rapid decompensation
[2021-05-28] MEDS: LORazepam 1 MG TABLET PO (14:28)
[2021-05-28 18:00] VITALS: BP 115/63; PULSE 80; TEMP 36.6
[2021-05-28] MEDS: Ondansetron ODT 8 MG TAB.RAPDIS TRANSLINGU (22:41)
[2021-05-28] MEDS: hydrOXYzine HCL 50 MG TABLET PO (22:42)
[2021-05-28] MEDS: Melatonin 3 MG TABLET 6 MG PO (22:42)
[2021-05-28] MEDS: lamoTRIgine 25 MG TABLET 125 MG PO (22:42)
[2021-05-28] MEDS: QUEtiapine Fumarate 100 MG TABLET PO (22:43)
[2021-05-28] MEDS: traZODone HCL 100 MG TABLET 300 MG PO (22:43)
[2021-05-29 06:00] VITALS: BP 128/59; PULSE 115; RESP 14; TEMP 36.6; O2SAT 98
[2021-05-29] MEDS: Famotidine 20 MG TABLET PO ×2 (09:18→22:18)
[2021-05-29] MEDS: cloNIDine HCL 0.1 MG TABLET PO ×2 (09:18→22:18)
--- NOTE | 2021-05-29 17:57 | P.PNPSI_ITS ---
Subjective Subjective Date of Service: 05/29/21 Reason For Visit: PTSD Interim History: Pt asleep today when approached for meeting. Call from father with request to send further diagnostic results to [facility]. Faxed to neuroendocrine clinic Medication Compliance: Yes Side effects from medications: No Attending Groups: Yes Review of Systems Acute medical concerns: No Medical Review of Systems: unchanged Review of Systems Psychiatric: Reports abnormal sleep pattern, Reports anxiety, Reports depression, Reports difficulty concentrating, Reports hopelessness, Reports irritability, Reports anhedonia, Reports mood swings, Reports paranoia and Reports suicidal ideation Mental Status Exam Mental Status Exam Patient Appearance: Appropriate Patient Orientation: Person, Place, Time and Situation Level of Consciousness: Alert Patient Behavior: Talkative and Good Eye Contact Mood Description: Depressed and Apprehensive Affect Description: Flat Patient Cognition Impaired: No Ability to Follow Directions: Good Speech Pattern: Spontaneous Speech Memory Description: Intact Hallucinations: None Delusions: Paranoid Ideation Perceptual Disturbances: Depersonalization and Derealization Thought Process: Distracted and Rumination Thought Content: positive for Perseveration and positive for Suicidal Ideation Depressive Symptoms: Increased Anxiety, Increased Irritability and Thoughts of /Suicide Judgement: Fair Diagnostics Vital Signs (24Hr): Vital Signs - 24 hr 05/28/21 18:00 05/29/21 06:00 Temperature 98 F 98 F Pulse Rate 80 115 H Respiratory Rate 14 Blood Pressure 115/63 128/59 L Pulse Oximetry 98 BMI result Body Mass Index 31.3 Labs Results: 05/15/21 11:24 05/15/21 11:24 Imaging Radiology Impressions: ITS Impressions Head CT 05/15/21 16:53 IMPRESSION: 1. No evidence of acute intracranial hemorrhage or edematous territorial infarction. 2. Redemonstrated 0.7 cm nodular lesion centered within the suprasellar cistern. Medications Medications Current Medications Al Hydroxide/Mg Hydroxide (Magnesium Hydrox/Alum Hydrox 30 Ml Oral.Susp) 30 ml PO Q6H PRN PRN Reason: Heartburn/Nausea Last Admin: 05/20/21 16:53 Dose: 30 ml Documented by: Aripiprazole (Aripiprazole Er 400 Mg Suser.Syr) 400 mg IM Q28D [facility] Last Admin: 05/08/21 10:01 Dose: 400 mg Documented by: Clonidine HCl (Clonidine Hcl 0.1 Mg Tablet) 0.1 mg PO BID [facility]; Protocol Last Admin: 05/29/21 09:18 Dose: 0.1 mg Documented by: Famotidine (Famotidine 20 Mg Tablet) 20 mg PO BID [facility] Last Admin: 05/29/21 09:18 Dose: 20 mg Documented by: Hydroxyzine HCl (Hydroxyzine Hcl 25 Mg Tablet) 25 mg PO TID PRN PRN Reason: Anxiety Last Admin: 05/25/21 01:58 Dose: 25 mg Documented by: Hydroxyzine HCl (Hydroxyzine Hcl 50 Mg Tablet) 50 mg PO BEDTIME [facility] Last Admin: 05/28/21 22:42 Dose: 50 mg Documented by: Lamotrigine (Lamotrigine 25 Mg Tablet) 125 mg PO BEDTIME [facility] Last Admin: 05/28/21 22:42 Dose: 125 mg Documented by: Lorazepam (Lorazepam 1 Mg Tablet) 1 mg PO Q6H PRN PRN Reason: anxiety Last Admin: 05/28/21 14:28 Dose: 1 mg Documented by: Magnesium Hydroxide (Milk Of Magnesia 30 Ml Oral.Susp) 30 ml PO DAILY PRN PRN Reason: Constipation Melatonin (Melatonin 3 Mg Tablet) 6 mg PO BEDTIME [facility] Last Admin: 05/28/21 22:42 Dose: 6 mg Documented by: Ondansetron HCl (Ondansetron Odt 4 Mg Tab.Rapdis) 4 mg TRANSLINGU DAILY PRN PRN Reason: Nausea Last Admin: 05/21/21 14:02 Dose: 4 mg Documented by: Ondansetron HCl (Ondansetron Odt 8 Mg Tab.Rapdis) 8 mg TRANSLINGU BEDTIME [facility] Last Admin: 05/28/21 22:41 Dose: 8 mg Documented by: Quetiapine Fumarate (Quetiapine Fumarate 100 Mg Tablet) 100 mg PO BEDTIME [facility] Last Admin: 05/28/21 22:43 Dose: 100 mg Documented by: Quetiapine Fumarate (Quetiapine Fumarate 50 Mg Tablet) 50 mg PO BID PRN PRN Reason: anxiety Trazodone HCl (Trazodone Hcl 100 Mg Tablet) 300 mg PO BEDTIME [facility] Last Admin: 05/28/21 22:43 Dose: 300 mg Documented by: Allergies Allergies Allergy/AdvReac Type Severity Reaction Status Date / Time metoclopramide [From Reglan] Allergy Muscle Verified 01/08/21 20:46 cramps haloperidol [From Haldol] AdvReac Severe Dystonia Verified 01/08/21 20:46 prazosin AdvReac Severe Abdominal Verified 04/05/21 10:55 Pain sertraline AdvReac Severe Gastrointestinal Verified 05/25/21 17:31 Upset sucralfate [From Carafate] AdvReac Severe vomiting Verified 01/08/21 20:46 band-aids AdvReac Intermediate skin Uncoded 02/04/21 17:52 irritation Assessment & Plan Assessment & Plan (1) PTSD (post-traumatic stress disorder): Status: Acute Code(s): F43.10 - Post-traumatic stress disorder, unspecified (2) Psychogenic nonepileptic seizure: Status: Acute Code(s): F44.5 - Conversion disorder with seizures or convulsions Assessment and Plan: Young woman with complex underlying psychological and psychiatric history suffering from seizure-like episodes with normal EEG. It is important to understand that this type of episodes does not mean that patient is faking. Some recent sophisticated neuro sign to fix studies have suggested that there region is still in the brain though not of epileptic type. This type of syndrome seem to occur or effect people with prior history of psychological or emotional injury, more commonly of sexual type, but there also is likely an underlying cerebral tendency about which we do not have good understanding. Some functional MRI studies have only suggested some dysfunction but it is nature and what to do about it is not known. In awake, this condition is more difficult to treat than epilepsy and more difficult to manage. Probably the most effective treatment is some kind of psychological intervention but even that is marginally effective. In some patient it is a self-limiting disease and seems to disappear after a while. Presence of underlying psychiatric disease of a different nature especially of psychotic type makes things much more complicated. There is no particular pharmacological treatment for this condition but if her mood stabilizer is needed, a medicine like oxcarbazepine, lamotrigine or valproic acid can be used. Finally, there are many patients who have combination of nonepileptic spells and epilepsy, who could be help with this type of medications. Plan 05/18: Discussed changes recommended 05/15, Seroquel previously implemented due to potential to lower seizure threshold and participate in sx presentation. Pt agrees to Mirtazapine discontinuation and Sertraline initiation-states she does not recall discussing these on 3/25. Informed pt that this is the rationale for waiting to implement until today when she was clearer. 05/20/21: Increase clonidine to 0.1 mg bid Change Seroquel 50 mg HS prn to standing per pt request. 05/21/21: Discontinue Sertraline- GI upset Pepcid trial to facilitate relief 05/22/21: Increase Pepcid to bid dosing. 05/24 Increase Seroquel to 100 mg HS and add Melatonin 6 mg HS 05/25/21: Continue current plan 05/26/21 Discussion of placing Sertraline on adverse respons list which she agrees with Seroquel prn added Formulating her list of questions for interview with Dr. Gonzalez - EMDR -His thoughts on why pseudoseizures are presenting -Best DBT skills-currently switch she reports is her best grounding resource. 05/27/21 Continue current plan 05/28/21 Support in transition Initiation of pseudoseizure treatment plan/educational program-un derstanding seizures, and distinguishing situations, moods and thoughts. Review of seizure log. 05/29/21: Discharge planned for next week DBT consult 06/01/21 Continue pseudoseizure education I spent minutes with the patient and/or on the patient floor today, greater than?50% of which was spent counseling/coordinating care. Patient educated on: therapeutic strategies Informed Consent: further education needed Reason for contiued inpatient stay Substantial Risk for: harm to self, inability to function and rapid decompens ation
[2021-05-29 18:00] VITALS: BP 106/55; PULSE 94; TEMP 36.9
[2021-05-29] MEDS: Ondansetron ODT 8 MG TAB.RAPDIS TRANSLINGU (22:03)
[2021-05-29] MEDS: Melatonin 3 MG TABLET 6 MG PO (22:16)
[2021-05-29] MEDS: traZODone HCL 100 MG TABLET 300 MG PO (22:17)
[2021-05-29] MEDS: hydrOXYzine HCL 50 MG TABLET PO (22:17)
[2021-05-29] MEDS: lamoTRIgine 25 MG TABLET 125 MG PO (22:17)
[2021-05-29] MEDS: QUEtiapine Fumarate 100 MG TABLET PO (22:18)
[2021-05-30 06:30] VITALS: BP 98/51; PULSE 77; RESP 16; TEMP 36.7; O2SAT 97
[2021-05-30 09:00] VITALS: BP 113/61; PULSE 89; TEMP 36.6
[2021-05-30] MEDS: cloNIDine HCL 0.1 MG TABLET PO ×2 (09:38→20:58)
[2021-05-30] MEDS: Famotidine 20 MG TABLET PO ×2 (09:39→20:58)
--- NOTE | 2021-05-30 16:20 | P.PNPSI_ITS ---
Subjective Subjective Date of Service: 05/30/21 Reason For Visit: PTSD Interim History: Patient sitting calmly on a bed playing with a video game. She says she has okay... Not great but does not really want to talk says he has been having some trouble sleeping but does not want medication changes. She says she is safe Mental Status Exam Mental Status Exam Narrative: Patient Appearance:?Appropriate Patient Orientation:?Person, Place, Time and Situation Level of Consciousness:?Alert Patient Behavior:?reticent; adequate Eye Contact Mood Description:?Depressed Affect Description:?constricted Patient Cognition Impaired:?No Ability to Follow Directions:?Good Speech Pattern:?Spontaneous Speech Memory Description:?Intact Hallucinations:?None Delusions:?Paranoid Ideation Perceptual Disturbances:?Depersonalization and Derealization Thought Process:?Distracted and Rumination Thought Content: no HI; intermittent passive SI Depressive Symptoms:?Increased Anxiety, Increased Irritability and Thoughts of /Suicide Judgement:?Fair Diagnostics Vital Signs (24Hr): Vital Signs - 24 hr 05/29/21 18:00 05/30/21 06:30 05/30/21 09:00 Temperature 98.4 F 98.1 F 98 F Pulse Rate 94 77 89 Respiratory Rate 16 Blood Pressure 106/55 L 98/51 L 113/61 Pulse Oximetry 97 BMI result Body Mass Index 31.3 Labs Results: 05/15/21 11:24 05/15/21 11:24 Imaging Radiology Impressions: ITS Impressions Head CT 05/15/21 16:53 IMPRESSION: 1. No evidence of acute intracranial hemorrhage or edematous territorial infarction. 2. Redemonstrated 0.7 cm nodular lesion centered within the suprasellar cistern. Medications Medications Current Medications Al Hydroxide/Mg Hydroxide (Magnesium Hydrox/Alum Hydrox 30 Ml Oral.Susp) 30 ml PO Q6H PRN PRN Reason: Heartburn/Nausea Last Admin: 05/20/21 16:53 Dose: 30 ml Documented by: Aripiprazole (Aripiprazole Er 400 Mg Suser.Syr) 400 mg IM Q28D [facility] Last Admin: 05/08/21 10:01 Dose: 400 mg Documented by: Clonidine HCl (Clonidine Hcl 0.1 Mg Tablet) 0.1 mg PO BID [facility]; Protocol Last Admin: 05/30/21 09:38 Dose: 0.1 mg Documented by: Famotidine (Famotidine 20 Mg Tablet) 20 mg PO BID [facility] Last Admin: 05/30/21 09:39 Dose: 20 mg Documented by: Hydroxyzine HCl (Hydroxyzine Hcl 25 Mg Tablet) 25 mg PO TID PRN PRN Reason: Anxiety Last Admin: 05/25/21 01:58 Dose: 25 mg Documented by: Hydroxyzine HCl (Hydroxyzine Hcl 50 Mg Tablet) 50 mg PO BEDTIME [facility] Last Admin: 05/29/21 22:17 Dose: 50 mg Documented by: Lamotrigine (Lamotrigine 25 Mg Tablet) 125 mg PO BEDTIME [facility] Last Admin: 05/29/21 22:17 Dose: 125 mg Documented by: Lorazepam (Lorazepam 1 Mg Tablet) 1 mg PO Q6H PRN PRN Reason: anxiety Last Admin: 05/28/21 14:28 Dose: 1 mg Documented by: Magnesium Hydroxide (Milk Of Magnesia 30 Ml Oral.Susp) 30 ml PO DAILY PRN PRN Reason: Constipation Melatonin (Melatonin 3 Mg Tablet) 6 mg PO BEDTIME [facility] Last Admin: 05/29/21 22:16 Dose: 6 mg Documented by: Ondansetron HCl (Ondansetron Odt 4 Mg Tab.Rapdis) 4 mg TRANSLINGU DAILY PRN PRN Reason: Nausea Last Admin: 05/21/21 14:02 Dose: 4 mg Documented by: Ondansetron HCl (Ondansetron Odt 8 Mg Tab.Rapdis) 8 mg TRANSLINGU BEDTIME [facility] Last Admin: 05/29/21 22:03 Dose: 8 mg Documented by: Quetiapine Fumarate (Quetiapine Fumarate 100 Mg Tablet) 100 mg PO BEDTIME [facility] Last Admin: 05/29/21 22:18 Dose: 100 mg Documented by: Quetiapine Fumarate (Quetiapine Fumarate 50 Mg Tablet) 50 mg PO BID PRN PRN Reason: anxiety Trazodone HCl (Trazodone Hcl 100 Mg Tablet) 300 mg PO BEDTIME [facility] Last Admin: 05/29/21 22:17 Dose: 300 mg Documented by: Allergies Allergies Allergy/AdvReac Type Severity Reaction Status Date / Time metoclopramide [From Reglan] Allergy Muscle Verified 01/08/21 20:46 cramps haloperidol [From Haldol] AdvReac Severe Dystonia Verified 01/08/21 20:46 prazosin AdvReac Severe Abdominal Verified 04/05/21 10:55 Pain sertraline AdvReac Severe Gastrointestinal Verified 05/25/21 17:31 Upset sucralfate [From Carafate] AdvReac Severe vomiting Verified 01/08/21 20:46 band-aids AdvReac Intermediate skin Uncoded 02/04/21 17:52 irritation Assessment & Plan Assessment & Plan (1) PTSD (post-traumatic stress disorder): Status: Acute Code(s): F43.10 - Post-traumatic stress disorder, unspecified (2) Psychogenic nonepileptic seizure: Status: Acute Code(s): F44.5 - Conversion disorder with seizures or convulsions Assessment and Plan: Young woman with complex underlying psychological and psychiatric history suffering from seizure-like episodes with normal EEG. It is important to understand that this type of episodes does not mean that patient is faking. Some recent sophisticated neuro sign to fix studies have suggested that there region is still in the brain though not of epileptic type. This type of syndrome seem to occur or effect people with prior history of psychological or emotional injury, more commonly of sexual type, but there also is likely an underlying cerebral tendency about which we do not have good understanding. Some functional MRI studies have only suggested some dysfunction but it is nature and what to do about it is not known. In awake, this condition is more difficult to treat than epilepsy and more difficult to manage. Probably the most effective treatment is some kind of psychological intervention but even that is marginally effective. In some patient it is a self-limiting disease and seems to disappear after a while. Presence of underlying psychiatric disease of a different nature especially of psychotic type makes things much more complicated. There is no particular pharmacological treatment for this condition but if her mood stabilizer is needed, a medicine like oxcarbazepine, lamotrigine or valproic acid can be used. Finally, there are many patients who have combination of nonepileptic spells and epilepsy, who could be help with thi s type of medications. Plan 05/18: Discussed changes recommended 05/15, Seroquel previously implemented due to potential to lower seizure threshold and participate in sx presentation. Pt agrees to Mirtazapine discontinuation and Sertraline initiation-states she does not recall discussing these on 05/15. Informed pt that this is the rationale for waiting to implement until today when she was clearer. 05/20/21: Increase clonidine to 0.1 mg bid Change Seroquel 50 mg HS prn to standing per pt request. 05/21/21: Discontinue Sertraline- GI upset Pepcid trial to facilitate relief 05/22/21: Increase Pepcid to bid dosing. 05/24 Increase Seroquel to 100 mg HS and add Melatonin 6 mg HS 05/25/21: Continue current plan 05/26/21 Discussion of placing Sertraline on adverse respons list which she agrees with Seroquel prn added Formulating her list of questions for interview with Dr. Gonzalez - EMDR -His thoughts on why pseudoseizures are presenting -Best DBT skills-currently switch she reports is her best grounding resource. 05/27/21 Continue current plan 05/28/21 Support in transition Initiation of pseudoseizure treatment plan/educational program- understanding seizures, and distinguishing situations, moods and thoughts. Review of seizure log. 05/29/21: Discharge planned for next week DBT consult 06/01/21 Continue pseudoseizure education 05/30/21: Continue current treatment plan I spent minutes with the patient and/or on the patient floor today, greater than?50% of which was spent counseling/coordinating care. Reason for contiued inpatient stay Substantial Risk for: med/psych decompensation
[2021-05-30 18:00] VITALS: BP 112/68; PULSE 76; RESP 14
[2021-05-30] MEDS: Ondansetron ODT 8 MG TAB.RAPDIS TRANSLINGU (20:32)
[2021-05-30] MEDS: QUEtiapine Fumarate 100 MG TABLET PO (20:58)
[2021-05-30] MEDS: hydrOXYzine HCL 50 MG TABLET PO (20:58)
[2021-05-30] MEDS: traZODone HCL 100 MG TABLET 300 MG PO (20:58)
[2021-05-30] MEDS: lamoTRIgine 25 MG TABLET 125 MG PO (20:58)
[2021-05-30] MEDS: Melatonin 3 MG TABLET 6 MG PO (20:58)
[2021-05-31 08:45] VITALS: BP 106/55; PULSE 97; TEMP 37
[2021-05-31] MEDS: cloNIDine HCL 0.1 MG TABLET PO ×2 (09:29→22:19)
[2021-05-31] MEDS: Famotidine 20 MG TABLET PO ×2 (09:30→22:19)
--- NOTE | 2021-05-31 13:48 | HO.PSYCHPN ---
Subjective Subjective Date of Service: 05/31/21 Reason For Visit: PTSD Interim History: Patient more talkative today and interactive with sports book writer. She says i'm fine. Still not sleeping well. Discussed that she is going to a senior living next week that she is feeling ambivalent about it. Patient shared that she is watching a TV show on her 'switch; which she enjoys. Mental Status Exam Mental Status Exam Narrative: Patient Appearance:?Appropriate Patient Orientation:?Person, Place, Time and Situation Level of Consciousness:?Alert Patient Behavior:?freindlier; adequate Eye Contact Mood Description:? im fine Affect Description:?congruent, calmer Patient Cognition Impaired:?No Ability to Follow Directions:?Good Speech Pattern:?Spontaneous Speech Memory Description:?Intact Hallucinations:?None Delusions:?none expressed; hx of Paranoid Ideation Perceptual Disturbances:intermittent?Depersonalization and Derealization Thought Process: goal oriented and organized Thought Content: no HI; intermittent passive SI Judgement:?Fair Diagnostics Vital Signs (24Hr): Vital Signs - 24 hr 05/30/21 18:00 05/31/21 08:45 Temperature 98.6 F Pulse Rate 76 97 Respiratory Rate 14 Blood Pressure 112/68 106/55 L BMI result Body Mass Index 31.3 Labs Results: 05/15/21 11:24 05/15/21 11:24 Imaging Radiology Impressions: ITS Impressions Head CT 05/15/21 16:53 IMPRESSION: 1. No evidence of acute intracranial hemorrhage or edematous territorial infarction. 2. Redemonstrated 0.7 cm nodular lesion centered within the suprasellar cistern. Medications Medications Current Medications Al Hydroxide/Mg Hydroxide (Magnesium Hydrox/Alum Hydrox 30 Ml Oral.Susp) 30 ml PO Q6H PRN PRN Reason: Heartburn/Nausea Last Admin: 05/20/21 16:53 Dose: 30 ml Documented by: Aripiprazole (Aripiprazole Er 400 Mg Suser.Syr) 400 mg IM Q28D [facility] Last Admin: 05/08/21 10:01 Dose: 400 mg Documented by: Clonidine HCl (Clonidine Hcl 0.1 Mg Tablet) 0.1 mg PO BID [facility]; Protocol Last Admin: 05/31/21 09:29 Dose: 0.1 mg Documented by: Famotidine (Famotidine 20 Mg Tablet) 20 mg PO BID [facility] Last Admin: 05/31/21 09:30 Dose: 20 mg Documented by: Hydroxyzine HCl (Hydroxyzine Hcl 25 Mg Tablet) 25 mg PO TID PRN PRN Reason: Anxiety Last Admin: 05/25/21 01:58 Dose: 25 mg Documented by: Hydroxyzine HCl (Hydroxyzine Hcl 50 Mg Tablet) 50 mg PO BEDTIME [facility] Last Admin: 05/30/21 20:58 Dose: 50 mg Documented by: Lamotrigine (Lamotrigine 25 Mg Tablet) 125 mg PO BEDTIME [facility] Last Admin: 05/30/21 20:58 Dose: 125 mg Documented by: Lorazepam (Lorazepam 1 Mg Tablet) 1 mg PO Q6H PRN PRN Reason: anxiety Last Admin: 05/28/21 14:28 Dose: 1 mg Documented by: Magnesium Hydroxide (Milk Of Magnesia 30 Ml Oral.Susp) 30 ml PO DAILY PRN PRN Reason: Constipation Melatonin (Melatonin 3 Mg Tablet) 6 mg PO BEDTIME [facility] Last Admin: 05/30/21 20:58 Dose: 6 mg Documented by: Ondansetron HCl (Ondansetron Odt 4 Mg Tab.Rapdis) 4 mg TRANSLINGU DAILY PRN PRN Reason: Nausea Last Admin: 05/21/21 14:02 Dose: 4 mg Documented by: Ondansetron HCl (Ondansetron Odt 8 Mg Tab.Rapdis) 8 mg TRANSLINGU BEDTIME [facility] Last Admin: 05/30/21 20:32 Dose: 8 mg Documented by: Quetiapine Fumarate (Quetiapine Fumarate 100 Mg Tablet) 100 mg PO BEDTIME [facility] Last Admin: 05/30/21 20:58 Dose: 100 mg Documented by: Quetiapine Fumarate (Quetiapine Fumarate 50 Mg Tablet) 50 mg PO BID PRN PRN Reason: anxiety Trazodone HCl (Trazodone Hcl 100 Mg Tablet) 300 mg PO BEDTIME [facility] Last Admin: 05/30/21 20:58 Dose: 300 mg Documented by: Allergies Allergies Allergy/AdvReac Type Severity Reaction Status Date / Time metoclopramide [From Reglan] Allergy Muscle Verified 01/08/21 20:46 cramps haloperidol [From Haldol] AdvReac Severe Dystonia Verified 01/08/21 20:46 prazosin AdvReac Severe Abdominal Verified 04/05/21 10:55 Pain sertraline AdvReac Severe Gastrointestinal Verified 05/25/21 17:31 Upset sucralfate [From Carafate] AdvReac Severe vomiting Verified 01/08/21 20:46 band-aids AdvReac Intermediate skin Uncoded 02/04/21 17:52 irritation Assessment & Plan Assessment & Plan (1) PTSD (post-traumatic stress disorder): Status: Acute Code(s): F43.10 - Post-traumatic stress disorder, unspecified (2) Psychogenic nonepileptic seizure: Status: Acute Code(s): F44.5 - Conversion disorder with seizures or convulsions Assessment and Plan: Young woman with complex underlying psychological and psychiatric history suffering from seizure-like episodes with normal EEG. It is important to understand that this type of episodes does not mean that patient is faking. Some recent sophisticated neuro sign to fix studies have suggested that there region is still in the brain though not of epileptic type. This type of syndrome seem to occur or effect people with prior history of psychological or emotional injury, more commonly of sexual type, but there also is likely an underlying cerebral tendency about which we do not have good understanding. Some functional MRI studies have only suggested some dysfunction but it is nature and what to do about it is not known. In awake, this condition is more difficult to treat than epilepsy and more difficult to manage. Probably the most effective treatment is some kind of psychological intervention but even that is marginally effective. In some patient it is a self-limiting disease and seems to disappear after a while. Presence of underlying psychiatric disease of a different nature especially of psychotic type makes things much more complicated. There is no particular pharmacological treatment for this condition but if her mood stabilizer is needed, a medicine like oxcarbazepine, lamotrigine or valproic acid can be used. Finally, there are many patients who have combination of nonepileptic spells and epilepsy, who could be help with this type of medications. Plan 05/18: Discussed changes recommended 05/15, Seroquel previously implemented due to potential to lower seizure threshold and participate in sx presentation. Pt agrees to Mirtazapine discontinuation and Sertraline initiation-states she does not recall discussing these on 05/15. Informed pt that this is the rationale for waiting to implement until today when she was clearer. 05/20/21: Increase clonidine to 0.1 mg bid Change Seroquel 50 mg HS prn to standing per pt request. 05/21/21: Discontinue Sertraline- GI upset Pepcid trial to facilitate relief 05/22/21: Increase Pepcid to bid dosing. 05/24 Increase Seroquel to 100 mg HS and add Melatonin 6 mg HS 05/25/21: Continue current plan 05/26/21 Discussion of placing Sertraline on adverse respons list which she agrees with Seroquel prn added Formulating her list of questions for interview with Dr. Gonzalez - EMDR -His thoughts on why pseudoseizures are presenting -Best DBT skills-currently switch she reports is her best grounding resource. 05/27/21 Continue current plan 05/28/21 Support in transition Initiation of pseudoseizure treatment plan/educational program-understanding seizures, and distinguishing situations, moods and thoughts. Review of seizure log. 05/29/21: Discharge planned for next week DBT consult 06/01/21 Continue pseudoseizure education 05/30/21: Continue current treatment plan 05/31/21: Continue current treatment plan I spent minutes with the patient and/or on the patient floor today, greater than?50% of which was spent counseling/coordinating care. Patient educated on: therapeutic strategies Informed Consent: understands Reason for contiued inpatient stay Substantial Risk for: other
[2021-05-31 18:00] VITALS: BP 96/54; PULSE 82; RESP 18; TEMP 36.9; O2SAT 99
[2021-05-31] MEDS: Ondansetron ODT 8 MG TAB.RAPDIS TRANSLINGU (21:49)
[2021-05-31] MEDS: hydrOXYzine HCL 50 MG TABLET PO (22:19)
[2021-05-31] MEDS: lamoTRIgine 25 MG TABLET 125 MG PO (22:20)
[2021-05-31] MEDS: Melatonin 3 MG TABLET 6 MG PO (22:21)
[2021-05-31] MEDS: QUEtiapine Fumarate 100 MG TABLET PO (22:21)
[2021-05-31] MEDS: traZODone HCL 100 MG TABLET 300 MG PO (22:21)
[2021-06-01] MEDS: Famotidine 20 MG TABLET PO ×2 (08:56→22:19)
[2021-06-01] MEDS: cloNIDine HCL 0.1 MG TABLET PO ×2 (08:56→22:19)
[2021-06-01 09:00] VITALS: BP 102/58; PULSE 85; TEMP 37
[2021-06-01] MEDS: Magnesium Hydrox/Alum Hydrox 30 ML ORAL.SUSP PO (14:03)
--- NOTE | 2021-06-01 16:40 | HO.PSYCHPN ---
Subjective Subjective Date of Service: 06/01/21 Reason For Visit: PTSD Subjective Notes: Conditional Voluntary Healthcare Proxy: No Guardianship: No Medical Problems Affecting Mental Status: No Interim History: Met with Dr. Gonzalez of [facility] today via Zoom with treatment team from [facility], [facility], [facility], [facility]. Planning transfer to [facility] this week Pt found the meeting to be useful. She is looking forward to transfer. Labs faxed to pt's father at her request. Medication Compliance: Yes Side effects from medications: No Attending Groups: Intermittent Review of Systems Acute medical concerns: No Medical Review of Systems: unchanged Review of Systems Psychiatric: Reports abnormal sleep pattern, Reports anxiety, Reports depression and Reports suicidal ideation (denies) Mental Status Exam Mental Status Exam Patient Appearance: Appropriate Patient Orientation: Person, Place, Time and Situation Level of Consciousness: Alert Patient Behavior: Talkative and Good Eye Contact Mood Description: Withdrawn Affect Description: Withdrawn Patient Cognition Impaired: No Ability to Follow Directions: Good Speech Pattern: Spontaneous Speech Memory Description: Intact Hallucinations: None Delusions: Not Present Perceptual Disturbances: Depersonalization and Derealization Thought Process: Intact and Goal Oriented Thought Content: positive for Goal Oriented Depressive Symptoms: Insomnia, Difficulty Sleeping and Low Self Esteem Judgement: Good Diagnostics Vital Signs (24Hr): Vital Signs - 24 hr 05/31/21 18:00 06/01/21 09:00 Temperature 98.4 F 98.6 F Pulse Rate 82 85 Respiratory Rate 18 Blood Pressure 96/54 L 102/58 L Pulse Oximetry 99 BMI result Body Mass Index 31.3 Labs Results: 05/15/21 11:24 05/15/21 11:24 Imaging Radiology Impressions: ITS Impressions Head CT 05/15/21 16:53 IMPRESSION: 1. No evidence of acute intracranial hemorrhage or edematous territorial infarction. 2. Redemonstrated 0.7 cm nodular lesion centered within the suprasellar cistern. Medications Medications Current Medications Al Hydroxide/Mg Hydroxide (Magnesium Hydrox/Alum Hydrox 30 Ml Oral.Susp) 30 ml PO Q6H PRN PRN Reason: Heartburn/Nausea Last Admin: 06/01/21 14:03 Dose: 30 ml Documented by: Aripiprazole (Aripiprazole Er 400 Mg Suser.Syr) 400 mg IM Q28D [facility] Last Admin: 05/08/21 10:01 Dose: 400 mg Documented by: Clonidine HCl (Clonidine Hcl 0.1 Mg Tablet) 0.1 mg PO BID [facility]; Protocol Last Admin: 06/01/21 08:56 Dose: 0.1 mg Documented by: Famotidine (Famotidine 20 Mg Tablet) 20 mg PO BID [facility] Last Admin: 06/01/21 08:56 Dose: 20 mg Documented by: Hydroxyzine HCl (Hydroxyzine Hcl 25 Mg Tablet) 25 mg PO TID PRN PRN Reason: Anxiety Last Admin: 05/25/21 01:58 Dose: 25 mg Documented by: Hydroxyzine HCl (Hydroxyzine Hcl 50 Mg Tablet) 50 mg PO BEDTIME [facility] Last Admin: 05/31/21 22:19 Dose: 50 mg Documented by: Lamotrigine (Lamotrigine 25 Mg Tablet) 125 mg PO BEDTIME [facility] Last Admin: 05/31/21 22:20 Dose: 125 mg Documented by: Lorazepam (Lorazepam 1 Mg Tablet) 1 mg PO Q6H PRN PRN Reason: anxiety Last Admin: 05/28/21 14:28 Dose: 1 mg Documented by: Magnesium Hydroxide (Milk Of Magnesia 30 Ml Oral.Susp) 30 ml PO DAILY PRN PRN Reason: Constipation Melatonin (Melatonin 3 Mg Tablet) 6 mg PO BEDTIME [facility] Last Admin: 05/31/21 22:21 Dose: 6 mg Documented by: Ondansetron HCl (Ondansetron Odt 4 Mg Tab.Rapdis) 4 mg TRANSLINGU DAILY PRN PRN Reason: Nausea Last Admin: 05/21/21 14:02 Dose: 4 mg Documented by: Ondansetron HCl (Ondansetron Odt 8 Mg Tab.Rapdis) 8 mg TRANSLINGU BEDTIME [facility] Last Admin: 05/31/21 21:49 Dose: 8 mg Documented by: Quetiapine Fumarate (Quetiapine Fumarate 100 Mg Tablet) 100 mg PO BEDTIME [facility] Last Admin: 05/31/21 22:21 Dose: 100 mg Documented by: Quetiapine Fumarate (Quetiapine Fumarate 50 Mg Tablet) 50 mg PO BID PRN PRN Reason: anxiety Trazodone HCl (Trazodone Hcl 100 Mg Tablet) 300 mg PO BEDTIME [facility] Last Admin: 05/31/21 22:21 Dose: 300 mg Documented by: Allergies Allergies Allergy/AdvReac Type Severity Reaction Status Date / Time metoclopramide [From [facility]] Allergy Muscle Verified 01/08/21 20:46 cramps haloperidol [From Haldol] AdvReac Severe Dystonia Verified 01/08/21 20:46 prazosin AdvReac Severe Abdominal Verified 04/05/21 10:55 Pain sertraline AdvReac Severe Gastrointestinal Verified 05/25/21 17:31 Upset sucralfate [From Carafate] AdvReac Severe vomiting Verified 01/08/21 20:46 band-aids AdvReac Intermediate skin Uncoded 02/04/21 17:52 irritation Assessment & Plan Assessment & Plan (1) PTSD (post-traumatic stress disorder): Status: Acute Code(s): F43.10 - Post-traumatic stress disorder, unspecified (2) Psychogenic nonepileptic seizure: Status: Acute Code(s): F44.5 - Conversion disorder with seizures or convulsions Assessment and Plan: Young woman with complex underlying psychological and psychiatric history suffering from seizure-like episodes with normal EEG. It is important to understand that this type of episodes does not mean that patient is faking. Some recent sophisticated neuro sign to fix studies have suggested that there region is still in the brain though not of epileptic type. This type of syndrome seem to occur or effect people with prior history of psychological or emotional injury, more commonly of sexual type, but there also is likely an underlying cerebral tendency about which we do not have good understanding. Some functional MRI studies have only suggested some dysfunction but it is nature and what to do about it is not known. In awake, this condition is more difficult to treat than epilepsy and more difficult to manage. Probably the most effective treatment is some kind of psychological intervention but even that is marginally effective. In some patient it is a self-limiting disease and seems to disappear after a while. Presence of underlying psychiatric disease of a different nature especially of psychotic type makes things much more complicated. There is no particular pharmacological treatment for this condition but if her mood stabilizer is needed, a medicine like oxcarbazepine, lamotrigine or valproic acid can be used. Finally, there are many patients who have combination of nonepileptic spells and epilepsy, who could be help with this type of medications. Plan 05/18: Discussed changes recommended 05/15, Seroquel previously implemented due to potential to lower seizure threshold and participate in sx presentation. Pt agrees to Mirtazapine discontinuation and Sertraline initiation-states she does not recall discussing these on 05/15. Informed pt that this is the rationale for waiting to implement until today when she was clearer. 05/20/21: Increase clonidine to 0.1 mg bid Change Seroquel 50 mg HS prn to standing per pt request. 05/21/21: Discontinue Sertraline- GI upset Pepcid trial to facilitate relief 05/22/21: Increase Pepcid to bid dosing. 05/24 Increase Seroquel to 100 mg HS and add Melatonin 6 mg HS 05/25/21: Continue current plan 05/26/21 Discussion of placing Sertraline on adverse respons list which she agrees with Seroquel prn added Formulating her list of questions for interview with Dr. Gonzalez - EMDR -His thoughts on why pseudoseizures are presenting -Best DBT skills-currently switch she reports is her best grounding resource. 05/27/21 Continue current plan 05/28/21 Support in transition Initiation of pseudoseizure treatment plan/educational program-understanding seizures, and distinguishing situations, moods and thoughts. Review of seizure log. 05/29/21: Discharge planned for next week DBT consult 06/01/21 Continue pseudoseizure education 05/30/21: Continue current treatment plan 05/31/21: Continue current treatment plan 06/01/21: Support in transition I spent minutes with the patient and/or on the patient floor today, greater than?50% of which was spent counseling/coordinating care. Patient educated on: therapeutic strategies Informed Consent: understands and further education needed Reason for contiued inpatient stay Substantial Risk for: harm to self, inability to function and rapid decompensation
[2021-06-01] MEDS: Ondansetron ODT 8 MG TAB.RAPDIS TRANSLINGU (21:48)
[2021-06-01 22:05] VITALS: BP 113/72; PULSE 87; TEMP 37.1; O2SAT 97
[2021-06-01] MEDS: lamoTRIgine 25 MG TABLET 125 MG PO (22:19)
[2021-06-01] MEDS: Melatonin 3 MG TABLET 6 MG PO (22:19)
[2021-06-01] MEDS: hydrOXYzine HCL 50 MG TABLET PO (22:19)
[2021-06-01] MEDS: traZODone HCL 100 MG TABLET 300 MG PO (22:20)
[2021-06-01] MEDS: QUEtiapine Fumarate 100 MG TABLET PO (22:20)
[2021-06-02 05:29] VITALS: BP 126/67; PULSE 67; RESP 16; TEMP 36.6; O2SAT 100
[2021-06-02] MEDS: cloNIDine HCL 0.1 MG TABLET PO ×2 (09:00→21:58)
[2021-06-02] MEDS: Famotidine 20 MG TABLET PO ×2 (09:00→21:51)
[2021-06-02 09:02] VITALS: BP 118/59; PULSE 88; O2SAT 100
--- NOTE | 2021-06-02 14:51 | P.PNPSI_ITS ---
Subjective Subjective Date of Service: 06/02/21 Reason For Visit: PTSD Subjective Notes: Conditional Voluntary Healthcare Proxy: No Guardianship: No Medical Problems Affecting Mental Status: No Interim History: Met with residential team and reports this went very well. Apprehensive, but excited about upcoming discharge. Reports anxiety is 9/10 but depressive sx decreased 4/10 this afternoon after the meeting. Denies current issues or concerns today. Medication Compliance: Yes Side effects from medications: No Attending Groups: Yes Review of Systems Acute medical concerns: No Medical Review of Systems: unchanged Review of Systems Psychiatric: Reports anxiety, Reports depression, Reports mood swings and Reports suicidal ideation (intermittent, denies currently.) Mental Status Exam Mental Status Exam Patient Appearance: Appropriate Patient Orientation: Person, Place, Time and Situation Level of Consciousness: Alert Patient Behavior: Talkative and Good Eye Contact Mood Description: Appropriate Affect Description: Appropriate Patient Cognition Impaired: No Ability to Follow Directions: Good Speech Pattern: Spontaneous Speech Memory Description: Intact Hallucinations: None Delusions: Not Present Perceptual Disturbances: Depersonalization and Derealization Thought Process: Intact and Goal Oriented Thought Content: positive for Goal Oriented Depressive Symptoms: Insomnia, Difficulty Sleeping and Low Self Esteem Judgement: Good Diagnostics Vital Signs (24Hr): Vital Signs - 24 hr 06/01/21 22:05 06/02/21 05:29 06/02/21 09:02 Temperature 98.7 F 97.8 F Pulse Rate 87 67 88 Respiratory Rate 16 Blood Pressure 113/72 126/67 118/59 L Pulse Oximetry 97 100 100 BMI result Body Mass Index 31.3 Labs Results: 05/15/21 11:24 05/15/21 11:24 Imaging Radiology Impressions: ITS Impressions Head CT 05/15/21 16:53 IMPRESSION: 1. No evidence of acute intracranial hemorrhage or edematous territorial infarction. 2. Redemonstrated 0.7 cm nodular lesion centered within the suprasellar cistern. Medications Medications Current Medications Al Hydroxide/Mg Hydroxide (Magnesium Hydrox/Alum Hydrox 30 Ml Oral.Susp) 30 ml PO Q6H PRN PRN Reason: Heartburn/Nausea Last Admin: 06/01/21 14:03 Dose: 30 ml Documented by: Aripiprazole (Aripiprazole Er 400 Mg Suser.Syr) 400 mg IM Q28D [facility] Last Admin: 05/08/21 10:01 Dose: 400 mg Documented by: Clonidine HCl (Clonidine Hcl 0.1 Mg Tablet) 0.1 mg PO BID [facility]; Protocol Last Admin: 06/02/21 09:00 Dose: 0.1 mg Documented by: Famotidine (Famotidine 20 Mg Tablet) 20 mg PO BID [facility] Last Admin: 06/02/21 09:00 Dose: 20 mg Documented by: Hydroxyzine HCl (Hydroxyzine Hcl 25 Mg Tablet) 25 mg PO TID PRN PRN Reason: Anxiety Last Admin: 05/25/21 01:58 Dose: 25 mg Documented by: Hydroxyzine HCl (Hydroxyzine Hcl 50 Mg Tablet) 50 mg PO BEDTIME [facility] Last Admin: 06/01/21 22:19 Dose: 50 mg Documented by: Lamotrigine (Lamotrigine 25 Mg Tablet) 125 mg PO BEDTIME [facility] Last Admin: 06/01/21 22:19 Dose: 125 mg Documented by: Lorazepam (Lorazepam 1 Mg Tablet) 1 mg PO Q6H PRN PRN Reason: anxiety Last Admin: 05/28/21 14:28 Dose: 1 mg Documented by: Magnesium Hydroxide (Milk Of Magnesia 30 Ml Oral.Susp) 30 ml PO DAILY PRN PRN Reason: Constipation Melatonin (Melatonin 3 Mg Tablet) 6 mg PO BEDTIME [facility] Last Admin: 06/01/21 22:19 Dose: 6 mg Documented by: Ondansetron HCl (Ondansetron Odt 4 Mg Tab.Rapdis) 4 mg TRANSLINGU DAILY PRN PRN Reason: Nausea Last Admin: 05/21/21 14:02 Dose: 4 mg Documented by: Ondansetron HCl (Ondansetron Odt 8 Mg Tab.Rapdis) 8 mg TRANSLINGU BEDTIME [facility] Last Admin: 06/01/21 21:48 Dose: 8 mg Documented by: Quetiapine Fumarate (Quetiapine Fumarate 100 Mg Tablet) 100 mg PO BEDTIME [facility] Last Admin: 06/01/21 22:20 Dose: 100 mg Documented by: Quetiapine Fumarate (Quetiapine Fumarate 50 Mg Tablet) 50 mg PO BID PRN PRN Reason: anxiety Trazodone HCl (Trazodone Hcl 100 Mg Tablet) 300 mg PO BEDTIME [facility] Last Admin: 06/01/21 22:20 Dose: 300 mg Documented by: Allergies Allergies Allergy/AdvReac Type Severity Reaction Status Date / Time metoclopramide [From [facility]] Allergy Muscle Verified 01/08/21 20:46 cramps haloperidol [From Haldol] AdvReac Severe Dystonia Verified 01/08/21 20:46 prazosin AdvReac Severe Abdominal Verified 04/05/21 10:55 Pain sertraline AdvReac Severe Gastrointestinal Verified 05/25/21 17:31 Upset sucralfate [From Carafate] AdvReac Severe vomiting Verified 01/08/21 20:46 band-aids AdvReac Intermediate skin Uncoded 02/04/21 17:52 irritation Assessment & Plan Assessment & Plan (1) PTSD (post-traumatic stress disorder): Status: Acute Code(s): F43.10 - Post-traumatic stress disorder, unspecified (2) Psychogenic nonepileptic seizure: Status: Acute Code(s): F44.5 - Conversion disorder with seizures or convulsions Assessment and Plan: Young woman with complex underlying psychological and psychiatric history suffering from seizure-like episodes with normal EEG. It is important to understand that this type of episodes does not mean that patient is faking. Some recent sophisticated neuro sign to fix studies have suggested that there re gion is still in the brain though not of epileptic type. This type of syndrome seem to occur or effect people with prior history of psychological or emotional injury, more commonly of sexual type, but there also is likely an underlying cerebral tendency about which we do not have good understanding. Some functional MRI studies have only suggested some dysfunction but it is nature and what to do about it is not known. In awake, this condition is more difficult to treat than epilepsy and more difficult to manage. Probably the most effective treatment is some kind of psychological intervention but even that is marginally effective. In some patient it is a self-limiting disease and seems to disappear after a while. Presence of underlying psychiatric disease of a different nature especially of psychotic type makes things much more complicated. There is no particular pharmacological treatment for this condition but if her mood stabilizer is needed, a medicine like oxcarbazepine, lamotrigine or valproic acid can be used. Finally, there are many patients who have combination of nonepileptic spells and epilepsy, who could be help with this type of medications. Plan 05/18: Discussed changes recommended 05/15, Seroquel previously implemented due to potential to lower seizure threshold and participate in sx presentation. Pt agrees to Mirtazapine discontinuation and Sertraline initiation-states she does not recall discussing these on 05/15. Informed pt that this is the rationale for waiting to implement until today when she was clearer. 05/20/21: Increase clonidine to 0.1 mg bid Change Seroquel 50 mg HS prn to standing per pt request. 05/21/21: Discontinue Sertraline- GI upset Pepcid trial to facilitate relief 05/22/21: Increase Pepcid to bid dosing. 05/24 Increase Seroquel to 100 mg HS and add Melatonin 6 mg HS 05/25/21: Continue current plan 05/26/21 Discussion of placing Sertraline on adverse respons list which she agrees with Seroquel prn added Formulating her list of questions for interview with Dr. Gonzalez - EMDR -His thoughts on why pseudoseizures are presenting -Best DBT skills-currently switch she reports is her best grounding resource. 05/27/21 Continue current plan 05/28/21 Support in transition Initiation of pseudoseizure treatment plan/educational program- understanding seizures, and distinguishing situations, moods and thoughts. Review of seizure log. 05/29/21: Discharge planned for next week DBT consult 06/01/21 Continue pseudoseizure education 05/30/21: Continue current treatment plan 05/31/21: Continue current treatment plan 06/01/21: Support in transition 06/02/21: Continue current plan of care I spent minutes with the patient and/or on the patient floor today, greater than?50% of which was spent counseling/coordinating care. Patient educated on: therapeutic strategies Informed Consent: understands and further education needed Reason for contiued inpatient stay Substantial Risk for: harm to self, inability to function and rapid decompensation
[2021-06-02 21:45] VITALS: BP 130/67; PULSE 87; TEMP 37.1; O2SAT 99
[2021-06-02] MEDS: Ondansetron ODT 8 MG TAB.RAPDIS TRANSLINGU (21:51)
[2021-06-02] MEDS: lamoTRIgine 25 MG TABLET 125 MG PO (21:52)
[2021-06-02] MEDS: hydrOXYzine HCL 50 MG TABLET PO (21:52)
[2021-06-02] MEDS: QUEtiapine Fumarate 100 MG TABLET PO (21:54)
[2021-06-02] MEDS: traZODone HCL 100 MG TABLET 300 MG PO (21:56)
[2021-06-02] MEDS: Melatonin 3 MG TABLET 6 MG PO (21:58)
[2021-06-03] MEDS: Famotidine 20 MG TABLET PO ×2 (09:09→21:22)
[2021-06-03] MEDS: cloNIDine HCL 0.1 MG TABLET PO ×2 (09:09→21:22)
[2021-06-03 09:11] VITALS: BP 110/60; PULSE 110; RESP 18; TEMP 36.6; O2SAT 100
--- NOTE | 2021-06-03 17:35 | HO.PSYCHPN ---
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 She saw it in my records. Discussed PTSD triggers and primative responses that result at times when triggers are activated. Concerned about this symptom she was informed of. Discussed possible responses when triggers are activated. Pt asks to return to [facility] in addition to [facility] in an effort to manage symptoms with available resources. Medication Compliance: Yes Side effects from medications: No Attending Groups: Yes Review of Systems Acute medical concerns: No Medical Review of Systems: unchanged Review of Systems Psychiatric: Reports anxiety and Reports suicidal ideation (denies) Mental Status Exam Mental Status Exam Patient Appearance: Appropriate Patient Orientation: Person, Place, Time and Situation Level of Consciousness: Alert Patient Behavior: Talkative and Good Eye Contact Mood Description: Appropriate Affect Description: Appropriate Patient Cognition Impaired: No Ability to Follow Directions: Good Speech Pattern: Spontaneous Speech Memory Description: Intact Hallucinations: None Delusions: Not Present Perceptual Disturbances: Depersonalization and Derealization Thought Process: Intact and Goal Oriented Thought Content: positive for Goal Oriented Depressive Symptoms: Insomnia, Difficulty Sleeping and Low Self Esteem Judgement: Good Diagnostics Vital Signs (24Hr): Vital Signs - 24 hr 06/02/21 21:45 06/03/21 09:11 Temperature 98.8 F 97.9 F Pulse Rate 87 110 H Respiratory Rate 18 Blood Pressure 130/67 110/60 Pulse Oximetry 99 100 BMI result Body Mass Index 31.3 Labs Results: 05/15/21 11:24 05/15/21 11:24 Imaging Radiology Impressions: ITS Impressions Head CT 05/15/21 16:53 IMPRESSION: 1. No evidence of acute intracranial hemorrhage or edematous territorial infarction. 2. Redemonstrated 0.7 cm nodular lesion centered within the suprasellar cistern. Medications Medications Current Medications Al Hydroxide/Mg Hydroxide (Magnesium Hydrox/Alum Hydrox 30 Ml Oral.Susp) 30 ml PO Q6H PRN PRN Reason: Heartburn/Nausea Last Admin: 06/01/21 14:03 Dose: 30 ml Documented by: Aripiprazole (Aripiprazole Er 400 Mg Suser.Syr) 400 mg IM Q28D [facility] Last Admin: 05/08/21 10:01 Dose: 400 mg Documented by: Aripiprazole (Aripiprazole 10 Mg Tablet) 10 mg PO DAILY [facility] Clonidine HCl (Clonidine Hcl 0.1 Mg Tablet) 0.1 mg PO BID [facility]; Protocol Last Admin: 06/03/21 09:09 Dose: 0.1 mg Documented by: Famotidine (Famotidine 20 Mg Tablet) 20 mg PO BID [facility] Last Admin: 06/03/21 09:09 Dose: 20 mg Documented by: Hydroxyzine HCl (Hydroxyzine Hcl 25 Mg Tablet) 25 mg PO TID PRN PRN Reason: Anxiety Last Admin: 05/25/21 01:58 Dose: 25 mg Documented by: Hydroxyzine HCl (Hydroxyzine Hcl 50 Mg Tablet) 50 mg PO BEDTIME [facility] Last Admin: 06/02/21 21:52 Dose: 50 mg Documented by: Lamotrigine (Lamotrigine 25 Mg Tablet) 125 mg PO BEDTIME [facility] Last Admin: 06/02/21 21:52 Dose: 125 mg Documented by: Lorazepam (Lorazepam 1 Mg Tablet) 1 mg PO Q6H PRN PRN Reason: anxiety Last Admin: 05/28/21 14:28 Dose: 1 mg Documented by: Magnesium Hydroxide (Milk Of Magnesia 30 Ml Oral.Susp) 30 ml PO DAILY PRN PRN Reason: Constipation Melatonin (Melatonin 3 Mg Tablet) 6 mg PO BEDTIME [facility] Last Admin: 06/02/21 21:58 Dose: 6 mg Documented by: Ondansetron HCl (Ondansetron Odt 4 Mg Tab.Rapdis) 4 mg TRANSLINGU DAILY PRN PRN Reason: Nausea Last Admin: 05/21/21 14:02 Dose: 4 mg Documented by: Ondansetron HCl (Ondansetron Odt 8 Mg Tab.Rapdis) 8 mg TRANSLINGU BEDTIME [facility] Last Admin: 06/02/21 21:51 Dose: 8 mg Documented by: Quetiapine Fumarate (Quetiapine Fumarate 100 Mg Tablet) 100 mg PO BEDTIME [facility] Last Admin: 06/02/21 21:54 Dose: 100 mg Documented by: Quetiapine Fumarate (Quetiapine Fumarate 50 Mg Tablet) 50 mg PO BID PRN PRN Reason: anxiety Trazodone HCl (Trazodone Hcl 100 Mg Tablet) 300 mg PO BEDTIME [facility] Last Admin: 06/02/21 21:56 Dose: 300 mg Documented by: Allergies Allergies Allergy/AdvReac Type Severity Reaction Status Date / Time metoclopramide [From Reglan] Allergy Muscle Verified 01/08/21 20:46 cramps haloperidol [From Haldol] AdvReac Severe Dystonia Verified 01/08/21 20:46 prazosin AdvReac Severe Abdominal Verified 04/05/21 10:55 Pain sertraline AdvReac Severe Gastrointestinal Verified 05/25/21 17:31 Upset sucralfate [From Carafate] AdvReac Severe vomiting Verified 01/08/21 20:46 band-aids AdvReac Intermediate skin Uncoded 02/04/21 17:52 irritation Assessment & Plan Assessment & Plan (1) PTSD (post-traumatic stress disorder): Status: Acute Code(s): F43.10 - Post-traumatic stress disorder, unspecified (2) Psychogenic nonepileptic seizure: Status: Acute Code(s): F44.5 - Conversion disorder with seizures or convulsions Assessment and Plan: Young woman with complex underlying psychological and psychiatric history suffering from seizure-like episodes with normal EEG. It is important to understand that this type of episodes does not mean that patient is faking. Some recent sophisticated neuro sign to fix studies have suggested that there region is still in the brain though not of epileptic type. This type of syndrome seem to occur or effect people with prior history of psychological or emotional injury, more commonly of sexual type, but there also is likely an underlying cerebral tendency about which we do not have good understanding. Some functional MRI studies have only suggested some dysfunction but it is nature and what to do about it is not known. In awake, this condition is more difficult to treat than epilepsy and more difficult to manage. Probably the most effective treatment is some kind of psychological intervention but even that is marginally effective. In some patient it is a self-limiting disease and seems to disappear after a while. Presence of underlying psychiatric disease of a different nature especially of psychotic type makes things much more complicated. There is no particular pharmacological treatment for this condition but if her mood stabilizer is needed, a medicine like oxcarbazepine, lamotrigine or valproic acid can be used. Finally, there are many patients who have combination of nonepileptic spells and epilepsy, who could be help with this type of medications. Plan 05/18: Discussed changes recommended 05/15, Seroquel previously implemented due to potential to lower seizure threshold and participate in sx presentation. Pt agrees to Mirtazapine discontinuation and Sertraline initiation-states she does not recall discussing these on 05/15. Informed pt that this is the rationale for waiting to implement until today when she was clearer. 05/20/21: Increase clonidine to 0.1 mg bid Change Seroquel 50 mg HS prn to standing per pt request. 05/21/21: Discontinue Sertraline- GI upset Pepcid trial to facilitate relief 05/22/21: Increase Pepcid to bid dosing. 05/24 Increase Seroquel to 100 mg HS and add Melatonin 6 mg HS 05/25/21: Continue current plan 05/26/21 Discussion of placing Sertraline on adverse respons list which she agrees with Seroquel prn added Formulating her list of questions for interview with Dr. Gonzalez - EMDR -His thoughts on why pseudoseizures are presenting -Best DBT skills-currently switch she reports is her best grounding resource. 05/27/21 Continue current plan 05/28/21 Support in transition Initiation of pseudoseizure treatment plan/educational program-understanding seizures, and distinguishing situations, moods and thoughts. Review of seizure log. 05/29/21: Discharge planned for next week DBT consult 06/01/21 Continue pseudoseizure education 05/30/21: Continue current treatment plan 05/31/21: Continue current treatment plan 06/01/21: Support in transition 06/02/21: Continue current plan of care 06/03/21: Abilify 10 mg a.m. Support in discharge and transition. I spent minutes with the patient and/or on the patient floor today, greater than?50% of which was spent counseling/coordinating care. Patient educated on: medication risk/benefits Informed Consent: understands Reason for contiued inpatient stay Substantial Risk for: harm to self, inability to function and rapid decompensation
[2021-06-03] MEDS: Ondansetron ODT 8 MG TAB.RAPDIS TRANSLINGU (20:50)
[2021-06-03 21:19] VITALS: BP 110/63; PULSE 77; TEMP 36.8; O2SAT 98
[2021-06-03] MEDS: QUEtiapine Fumarate 100 MG TABLET PO (21:22)
[2021-06-03] MEDS: Melatonin 3 MG TABLET 6 MG PO (21:22)
[2021-06-03] MEDS: hydrOXYzine HCL 50 MG TABLET PO (21:22)
[2021-06-03] MEDS: traZODone HCL 100 MG TABLET 300 MG PO (21:22)
[2021-06-03] MEDS: lamoTRIgine 25 MG TABLET 125 MG PO (21:22)
[2021-06-04 09:15] VITALS: BP 108/58; PULSE 85; TEMP 36.9
[2021-06-04] MEDS: cloNIDine HCL 0.1 MG TABLET PO ×2 (09:16→21:59)
[2021-06-04] MEDS: Famotidine 20 MG TABLET PO ×2 (09:16→21:58)
[2021-06-04] MEDS: ARIPiprazole 10 MG TABLET PO (09:16)
--- NOTE | 2021-06-04 16:27 | P.PNPSI_ITS ---
Subjective Subjective Date of Service: 06/04/21 Reason For Visit: PTSD Subjective Notes: Conditional Voluntary Healthcare Proxy: No Guardianship: No Medical Problems Affecting Mental Status: No Interim History: Focusing on discharge and re-gaining freedom. Determined to drive her car. Discussed seizure activity (pseudo seizure) and driving restrictions. No restrictions found on pt via DMV registry. Pt wanting to visit friends and enjoy her freedom. Discussed being inpatient for so long and without the basic freedoms to do many things others take for granted and her anticipation and exci tement to get back to her life. Reports no adverse effects from Abilify PO dosing re-added to regime. Will take Maintena injection 06/06 in preparation for discharge 06/09. Medication Compliance: Yes Side effects from medications: No Attending Groups: Yes Review of Systems Acute medical concerns: No Medical Review of Systems: unchanged Review of Systems Psychiatric: Reports anxiety and Reports suicidal ideation (denies) Mental Status Exam Mental Status Exam Patient Appearance: Appropriate Patient Orientation: Person, Place, Time and Situation Level of Consciousness: Alert Patient Behavior: Talkative and Good Eye Contact Mood Description: Appropriate Affect Description: Appropriate Patient Cognition Impaired: No Ability to Follow Directions: Good Speech Pattern: Spontaneous Speech Memory Description: Intact Hallucinations: None Delusions: Not Present Perceptual Disturbances: Depersonalization and Derealization Thought Process: Intact and Goal Oriented Thought Content: positive for Goal Oriented Depressive Symptoms: Insomnia, Difficulty Sleeping and Low Self Esteem Judgement: Good Diagnostics Vital Signs (24Hr): Vital Signs - 24 hr 06/03/21 21:19 06/04/21 09:15 Temperature 98.2 F 98.4 F Pulse Rate 77 85 Blood Pressure 110/63 108/58 L Pulse Oximetry 98 BMI result Body Mass Index 31.3 Labs Results: 05/15/21 11:24 05/15/21 11:24 Imaging Radiology Impressions: ITS Impressions Head CT 05/15/21 16:53 IMPRESSION: 1. No evidence of acute intracranial hemorrhage or edematous territorial infarction. 2. Redemonstrated 0.7 cm nodular lesion centered within the suprasellar cistern. Medications Medications Current Medications Al Hydroxide/Mg Hydroxide (Magnesium Hydrox/Alum Hydrox 30 Ml Oral.Susp) 30 ml PO Q6H PRN PRN Reason: Heartburn/Nausea Last Admin: 06/01/21 14:03 Dose: 30 ml Documented by: Aripiprazole (Aripiprazole Er 400 Mg Suser.Syr) 400 mg IM Q28D [facility] Last Admin: 05/08/21 10:01 Dose: 400 mg Documented by: Aripiprazole (Aripiprazole 10 Mg Tablet) 10 mg PO DAILY [facility] Last Admin: 06/04/21 09:16 Dose: 10 mg Documented by: Clonidine HCl (Clonidine Hcl 0.1 Mg Tablet) 0.1 mg PO BID [facility]; Protocol Last Admin: 06/04/21 09:16 Dose: 0.1 mg Documented by: Famotidine (Famotidine 20 Mg Tablet) 20 mg PO BID [facility] Last Admin: 06/04/21 09:16 Dose: 20 mg Documented by: Hydroxyzine HCl (Hydroxyzine Hcl 25 Mg Tablet) 25 mg PO TID PRN PRN Reason: Anxiety Last Admin: 05/25/21 01:58 Dose: 25 mg Documented by: Hydroxyzine HCl (Hydroxyzine Hcl 50 Mg Tablet) 50 mg PO BEDTIME [facility] Last Admin: 06/03/21 21:22 Dose: 50 mg Documented by: Lamotrigine (Lamotrigine 25 Mg Tablet) 125 mg PO BEDTIME [facility] Last Admin: 06/03/21 21:22 Dose: 125 mg Documented by: Lorazepam (Lorazepam 1 Mg Tablet) 1 mg PO Q6H PRN PRN Reason: anxiety Last Admin: 05/28/21 14:28 Dose: 1 mg Documented by: Magnesium Hydroxide (Milk Of Magnesia 30 Ml Oral.Susp) 30 ml PO DAILY PRN PRN Reason: Constipation Melatonin (Melatonin 3 Mg Tablet) 6 mg PO BEDTIME [facility] Last Admin: 06/03/21 21:22 Dose: 6 mg Documented by: Ondansetron HCl (Ondansetron Odt 4 Mg Tab.Rapdis) 4 mg TRANSLINGU DAILY PRN PRN Reason: Nausea Last Admin: 05/21/21 14:02 Dose: 4 mg Documented by: Ondansetron HCl (Ondansetron Odt 8 Mg Tab.Rapdis) 8 mg TRANSLINGU BEDTIME [facility] Last Admin: 06/03/21 20:50 Dose: 8 mg Documented by: Quetiapine Fumarate (Quetiapine Fumarate 100 Mg Tablet) 100 mg PO BEDTIME [facility] Last Admin: 06/03/21 21:22 Dose: 100 mg Documented by: Quetiapine Fumarate (Quetiapine Fumarate 50 Mg Tablet) 50 mg PO BID PRN PRN Reason: anxiety Trazodone HCl (Trazodone Hcl 100 Mg Tablet) 300 mg PO BEDTIME [facility] Last Admin: 06/03/21 21:22 Dose: 300 mg Documented by: Allergies Allergies Allergy/AdvReac Type Severity Reaction Status Date / Time metoclopramide [From Reglan] Allergy Muscle Verified 01/08/21 20:46 cramps haloperidol [From Haldol] AdvReac Severe Dystonia Verified 01/08/21 20:46 prazosin AdvReac Severe Abdominal Verified 04/05/21 10:55 Pain sertraline AdvReac Severe Gastrointestinal Verified 05/25/21 17:31 Upset sucralfate [From Carafate] AdvReac Severe vomiting Verified 01/08/21 20:46 band-aids AdvReac Intermediate skin Uncoded 02/04/21 17:52 irritation Assessment & Plan Assessment & Plan (1) PTSD (post-traumatic stress disorder): Status: Acute Code(s): F43.10 - Post-traumatic stress disorder, unspecified (2) Psychogenic nonepileptic seizure: Status: Acute Code(s): F44.5 - Conversion disorder with seizures or convulsions Assessment and Plan: Young woman with complex underlying psychological and psychiatric history suffering from seizure-like episodes with normal EEG. It is important to understand that this type of episodes does not mean that patient is faking. Some recent sophisticated neuro sign to fix studies have suggested that there region is still in the brain though not of epileptic type. This type of syndrome seem to occur or effect people with prior history of psychological or emotional injury, more commonly of sexual type, but there also is likely an underlying cerebral tendency about which we do not have good understanding. Some functional MRI studies have only suggested some dysfunction but it is natur e and what to do about it is not known. In awake, this condition is more difficult to treat than epilepsy and more difficult to manage. Probably the most effective treatment is some kind of psychological intervention but even that is marginally effective. In some patient it is a self-limiting disease and seems to disappear after a while. Presence of underlying psychiatric disease of a different nature especially of psychotic type makes things much more complicated. There is no particular pharmacological treatment for this condition but if her mood stabilizer is needed, a medicine like oxcarbazepine, lamotrigine or valproic acid can be used. Finally, there are many patients who have combination of nonepileptic spells and epilepsy, who could be help with this type of medications. Plan 05/18: Discussed changes recommended 05/15, Seroquel previously implemented due to potential to lower seizure threshold and participate in sx presentation. Pt agrees to Mirtazapine discontinuation and Sertraline initiation-states she does not recall discussing these on 05/15. Informed pt that this is the rationale for waiting to implement until today when she was clearer. 05/20/21: Increase clonidine to 0.1 mg bid Change Seroquel 50 mg HS prn to standing per pt request. 05/21/21: Discontinue Sertraline- GI upset Pepcid trial to facilitate relief 05/22/21: Increase Pepcid to bid dosing. 05/24 Increase Seroquel to 100 mg HS and add Melatonin 6 mg HS 05/25/21: Continue current plan 05/26/21 Discussion of placing Sertraline on adverse respons list which she agrees with Seroquel prn added Formulating her list of questions for interview with Dr. Gonzalez - EMDR -His thoughts on why pseudoseizures are presenting -Best DBT skills-currently switch she reports is her best grounding resource. 05/27/21 Continue current plan 05/28/21 Support in transition Initiation of pseudoseizure treatment plan/educational program- understanding seizures, and distinguishing situations, moods and thoughts. Review of seizure log. 05/29/21: Discharge planned for next week DBT consult 06/01/21 Continue pseudoseizure education 05/30/21: Continue current treatment plan 05/31/21: Continue current treatment plan 06/01/21: Support in transition 06/02/21: Continue current plan of care 06/03/21: Abilify 10 mg a.m. Support in discharge and transition. 06/04/21: Continue current plan of care. Termination focus I spent minutes with the patient and/or on the patient floor today, greater than?50% of which was spent counseling/coordinating care. Patient educated on: therapeutic strategies Informed Consent: understands Reason for contiued inpatient stay Substantial Risk for: harm to self, inability to function and rapid decompensation
[2021-06-04 17:09] VITALS: BP 97/54; PULSE 70; RESP 18; TEMP 36.8; O2SAT 97
[2021-06-04] MEDS: lamoTRIgine 25 MG TABLET 125 MG PO (21:58)
[2021-06-04] MEDS: traZODone HCL 100 MG TABLET 300 MG PO (21:58)
[2021-06-04] MEDS: Melatonin 3 MG TABLET 6 MG PO (21:58)
[2021-06-04] MEDS: hydrOXYzine HCL 50 MG TABLET PO (21:58)
[2021-06-04] MEDS: Ondansetron ODT 8 MG TAB.RAPDIS TRANSLINGU (21:58)
[2021-06-04] MEDS: QUEtiapine Fumarate 100 MG TABLET PO (21:58)
[2021-06-05] MEDS: ARIPiprazole 10 MG TABLET PO (09:02)
[2021-06-05] MEDS: cloNIDine HCL 0.1 MG TABLET PO ×2 (09:02→22:08)
[2021-06-05] MEDS: Famotidine 20 MG TABLET PO ×2 (09:02→22:09)
[2021-06-05 09:04] VITALS: BP 111/66; PULSE 79; RESP 16; TEMP 36.7; O2SAT 100
[2021-06-05 17:08] VITALS: BP 123/64; PULSE 76; RESP 17; TEMP 36.6; O2SAT 100
[2021-06-05] MEDS: Ondansetron ODT 8 MG TAB.RAPDIS TRANSLINGU (22:07)
[2021-06-05] MEDS: QUEtiapine Fumarate 100 MG TABLET PO (22:08)
[2021-06-05] MEDS: traZODone HCL 100 MG TABLET 300 MG PO (22:08)
[2021-06-05] MEDS: hydrOXYzine HCL 50 MG TABLET PO (22:08)
[2021-06-05] MEDS: lamoTRIgine 25 MG TABLET 125 MG PO (22:08)
[2021-06-05] MEDS: Melatonin 3 MG TABLET 6 MG PO (22:09)
[2021-06-05 22:13] VITALS: BP 102/72; PULSE 95; RESP 18; TEMP 36.6; O2SAT 98
--- NOTE | 2021-06-05 23:25 | HO.PSYCHPN ---
Subjective Subjective Date of Service: 06/05/21 Reason For Visit: PTSD Interim History: Patient seen and discussed with team. Patient evaluated today and upon interview she reports her arm hurts, as she received abilify maintena today. Says she had good news today, which is that she will be able to drive her car when she discharges, also discussed SSDI paperwork. Pt denied SIB. Says she feels safe. In the milieu, patient is safe but isolative in behavior. Medication Compliance: Yes Side effects from medications: No Attending Groups: Yes Review of Systems Acute medical concerns: No Medical Review of Systems: unchanged Mental Status Exam Mental Status Exam Narrative: Patient Appearance:?Appropriate Patient Orientation:?Person, Place, Time and Situation Level of Consciousness:?Alert Patient Behavior:?Talkative and Good Eye Contact Mood Description:?Appropriate Affect Description:?Appropriate Patient Cognition Impaired:?No Ability to Follow Directions:?Good Speech Pattern:?Spontaneous Speech Memory Description:?Intact Hallucinations:?None Delusions:?Not Present Perceptual Disturbances:?Depersonalization and Derealization Thought Process:?Intact and Goal Oriented Thought Content:?positive for Goal Oriented Depressive Symptoms:?Insomnia, Difficulty Sleeping and Low Self Esteem Judgment:?Good Diagnostics Vital Signs (24Hr): Vital Signs - 24 hr 06/05/21 09:04 06/05/21 17:08 06/05/21 22:13 Temperature 98.0 F 97.9 F 97.8 F Pulse Rate 79 76 95 Respiratory Rate 16 17 18 Blood Pressure 111/66 123/64 102/72 Pulse Oximetry 100 100 98 BMI result Body Mass Index 31.3 Labs Results: 05/15/21 11:24 05/15/21 11:24 Imaging Radiology Impressions: ITS Impressions Head CT 05/15/21 16:53 IMPRESSION: 1. No evidence of acute intracranial hemorrhage or edematous territorial infarction. 2. Redemonstrated 0.7 cm nodular lesion centered within the suprasellar cistern. Medications Medications Current Medications Al Hydroxide/Mg Hydroxide (Magnesium Hydrox/Alum Hydrox 30 Ml Oral.Susp) 30 ml PO Q6H PRN PRN Reason: Heartburn/Nausea Last Admin: 06/01/21 14:03 Dose: 30 ml Documented by: Aripiprazole (Aripiprazole 10 Mg Tablet) 10 mg PO DAILY [facility] Last Admin: 06/05/21 09:02 Dose: 10 mg Documented by: Clonidine HCl (Clonidine Hcl 0.1 Mg Tablet) 0.1 mg PO BID [facility]; Protocol Last Admin: 06/05/21 22:08 Dose: 0.1 mg Documented by: Famotidine (Famotidine 20 Mg Tablet) 20 mg PO BID [facility] Last Admin: 06/05/21 22:09 Dose: 20 mg Documented by: Hydroxyzine HCl (Hydroxyzine Hcl 25 Mg Tablet) 25 mg PO TID PRN PRN Reason: Anxiety Last Admin: 05/25/21 01:58 Dose: 25 mg Documented by: Hydroxyzine HCl (Hydroxyzine Hcl 50 Mg Tablet) 50 mg PO BEDTIME [facility] Last Admin: 06/05/21 22:08 Dose: 50 mg Documented by: Lamotrigine (Lamotrigine 25 Mg Tablet) 25 mg PO BEDTIME [facility] Lamotrigine (Lamotrigine 100 Mg Tablet) 100 mg PO BEDTIME [facility] Lorazepam (Lorazepam 1 Mg Tablet) 1 mg PO Q6H PRN PRN Reason: anxiety Last Admin: 05/28/21 14:28 Dose: 1 mg Documented by: Magnesium Hydroxide (Milk Of Magnesia 30 Ml Oral.Susp) 30 ml PO DAILY PRN PRN Reason: Constipation Melatonin (Melatonin 3 Mg Tablet) 6 mg PO BEDTIME [facility] Last Admin: 06/05/21 22:09 Dose: 6 mg Documented by: Patient Own Med ( Aripiprazole Er 400 Mg Suser.Syr) 1 each IM Q28D [facility] Last Admin: 06/05/21 14:48 Dose: 1 each Documented by: Ondansetron HCl (Ondansetron Odt 4 Mg Tab.Rapdis) 4 mg TRANSLINGU DAILY PRN PRN Reason: Nausea Last Admin: 05/21/21 14:02 Dose: 4 mg Documented by: Ondansetron HCl (Ondansetron Odt 8 Mg Tab.Rapdis) 8 mg TRANSLINGU BEDTIME [facility] Last Admin: 06/05/21 22:07 Dose: 8 mg Documented by: Quetiapine Fumarate (Quetiapine Fumarate 100 Mg Tablet) 100 mg PO BEDTIME [facility] Last Admin: 06/05/21 22:08 Dose: 100 mg Documented by: Quetiapine Fumarate (Quetiapine Fumarate 50 Mg Tablet) 50 mg PO BID PRN PRN Reason: anxiety Trazodone HCl (Trazodone Hcl 100 Mg Tablet) 300 mg PO BEDTIME [facility] Last Admin: 06/05/21 22:08 Dose: 300 mg Documented by: Allergies Allergies Allergy/AdvReac Type Severity Reaction Status Date / Time metoclopramide [From Reglan] Allergy Muscle Verified 01/08/21 20:46 cramps haloperidol [From Haldol] AdvReac Severe Dystonia Verified 01/08/21 20:46 prazosin AdvReac Severe Abdominal Verified 04/05/21 10:55 Pain sertraline AdvReac Severe Gastrointestinal Verified 05/25/21 17:31 Upset sucralfate [From Carafate] AdvReac Severe vomiting Verified 01/08/21 20:46 band-aids AdvReac Intermediate skin Uncoded 02/04/21 17:52 irritation Assessment & Plan Assessment & Plan (1) PTSD (post-traumatic stress disorder): Status: Acute Code(s): F43.10 - Post-traumatic stress disorder, unspecified (2) Psychogenic nonepileptic seizure: Status: Acute Code(s): F44.5 - Conversion disorder with seizures or convulsions Assessment and Plan: Young woman with complex underlying psychological and psychiatric history suffering from seizure-like episodes with normal EEG. It is important to understand that this type of episodes does not mean that patient is faking. Some recent sophisticated neuro sign to fix studies have suggested that there region is still in the brain though not of epileptic type. This type of syndrome seem to occur or effect people with prior history of psychological or emotional injury, more commonly of sexual type, but there also is likely an underlying cerebral tendency about which we do not have good understanding. Some functional MRI studies have only suggested some dysfunction but it is nature and what to do about it is not known. In awake, this condition is more difficult to treat than epilepsy and more difficult to manage. Probably the most effective treatment is some kind of psychological intervention but even that is marginally effective. In some patient it is a self-limiting disease and seems to disappear after a while. Presence of underlying psychiatric disease of a different nature especially of psychotic type makes things much more complicated. There is no particular pharmacological treatment for this condition but if her mood stabilizer is needed, a medicine like oxcarbazepine, lamotrigine or valproic acid can be used. Finally, there are many patients who have combination of nonepileptic spells and epilepsy, who could be help with this type of medications. Plan 05/18: Discussed changes recommended 05/15, Seroquel previously implemented due to potential to lower seizure threshold and participate in sx presentation. Pt agrees to Mirtazapine discontinuation and Sertraline initiation-states she does not recall discussing these on 05/15. Informed pt that this is the rationale for waiting to implement until today when she was clearer. 05/20/21: Increase clonidine to 0.1 mg bid Change Seroquel 50 mg HS prn to standing per pt request. 05/21/21: Discontinue Sertraline- GI upset Pepcid trial to facilitate relief 05/22/21: Increase Pepcid to bid dosing. 05/24 Increase Seroquel to 100 mg HS and add Melatonin 6 mg HS 05/25/21: Continue current plan 05/26/21 Discussion of placing Sertraline on adverse respons list which she agrees with Seroquel prn added Formulating her list of questions for interview with Dr. Gonzalez - EMDR -His thoughts on why pseudoseizures are presenting -Best DBT skills-currently switch she reports is her best grounding resource. 05/27/21 Continue current plan 05/28/21 Support in transition Initiation of pseudoseizure treatment plan/educational program-understanding seizures, and distinguishing situations, moods and thoughts. Review of seizure log. 05/29/21: Discharge planned for next week DBT consult 06/01/21 Continue pseudoseizure education 05/30/21: Continue current treatment plan 05/31/21: Continue current treatment plan 06/01/21: Support in transition 06/02/21: Continue current plan of care 06/03/21: Abilify 10 mg a.m. Support in discharge and transition. 06/04/21: Continue current plan of care. Termination focus 06/05/21: continue medications unchanged. Received abilify maintena, tolerating medications. I spent minutes with the patient and/or on the patient floor today, greater than?50% of which was spent counseling/coordinating care. Patient educated on: medication risk/benefits Reason for contiued inpatient stay Substantial Risk for: harm to self and med/psych decompensation
[2021-06-06 08:06] VITALS: BP 99/58; PULSE 94; RESP 18; TEMP 36.9; O2SAT 99
[2021-06-06] MEDS: ARIPiprazole 10 MG TABLET PO (09:05)
[2021-06-06] MEDS: Famotidine 20 MG TABLET PO ×2 (09:05→22:11)
[2021-06-06] MEDS: cloNIDine HCL 0.1 MG TABLET PO ×2 (09:05→22:10)
--- NOTE | 2021-06-06 18:38 | P.PNPSI_ITS ---
Subjective Subjective Date of Service: 06/06/21 Reason For Visit: PTSD Interim History: Preparing for discharge. Discussed termination today and moving forward with her life. Denies SI at this time-thinking is moving toward reconnecting with important people in her life/friends/her dog/family. Medication Compliance: Yes Side effects from medications: No Attending Groups: Intermittent Review of Systems Acute medical concerns: No Medical Review of Systems: unchanged Mental Status Exam Mental Status Exam Narrative: Patient Appearance:?Appropriate Patient Orientation:?Person, Place, Time and Situation Level of Consciousness:?Alert Patient Behavior:?Talkative and Good Eye Contact Mood Description:?Appropriate Affect Description:?Appropriate Patient Cognition Impaired:?No Ability to Follow Directions:?Good Speech Pattern:?Spontaneous Speech Memory Description:?Intact Hallucinations:?None Delusions:?Not Present Perceptual Disturbances:?Depersonalization and Derealization Thought Process:?Intact and Goal Oriented Thought Content:?positive for Goal Oriented Depressive Symptoms:?Insomnia, Difficulty Sleeping and Low Self Esteem Judgment:?Good Diagnostics Vital Signs (24Hr): Vital Signs - 24 hr 06/05/21 22:13 06/06/21 08:06 Temperature 97.8 F 98.5 F Pulse Rate 95 94 Respiratory Rate 18 18 Blood Pressure 102/72 99/58 L Pulse Oximetry 98 99 BMI result Body Mass Index 31.3 Labs Results: 05/15/21 11:24 05/15/21 11:24 Imaging Radiology Impressions: ITS Impressions Head CT 05/15/21 16:53 IMPRESSION: 1. No evidence of acute intracranial hemorrhage or edematous territorial infarction. 2. Redemonstrated 0.7 cm nodular lesion centered within the suprasellar cistern. Medications Medications Current Medications Al Hydroxide/Mg Hydroxide (Magnesium Hydrox/Alum Hydrox 30 Ml Oral.Susp) 30 ml PO Q6H PRN PRN Reason: Heartburn/Nausea Last Admin: 06/01/21 14:03 Dose: 30 ml Documented by: Aripiprazole (Aripiprazole 10 Mg Tablet) 10 mg PO DAILY [facility] Last Admin: 06/06/21 09:05 Dose: 10 mg Documented by: Clonidine HCl (Clonidine Hcl 0.1 Mg Tablet) 0.1 mg PO BID [facility]; Protocol Last Admin: 06/06/21 09:05 Dose: 0.1 mg Documented by: Famotidine (Famotidine 20 Mg Tablet) 20 mg PO BID [facility] Last Admin: 06/06/21 09:05 Dose: 20 mg Documented by: Hydroxyzine HCl (Hydroxyzine Hcl 25 Mg Tablet) 25 mg PO TID PRN PRN Reason: Anxiety Last Admin: 05/25/21 01:58 Dose: 25 mg Documented by: Hydroxyzine HCl (Hydroxyzine Hcl 50 Mg Tablet) 50 mg PO BEDTIME [facility] Last Admin: 06/05/21 22:08 Dose: 50 mg Documented by: Lamotrigine (Lamotrigine 25 Mg Tablet) 25 mg PO BEDTIME [facility] Lamotrigine (Lamotrigine 100 Mg Tablet) 100 mg PO BEDTIME [facility] Lorazepam (Lorazepam 1 Mg Tablet) 1 mg PO Q6H PRN PRN Reason: anxiety Last Admin: 05/28/21 14:28 Dose: 1 mg Documented by: Magnesium Hydroxide (Milk Of Magnesia 30 Ml Oral.Susp) 30 ml PO DAILY PRN PRN Reason: Constipation Melatonin (Melatonin 3 Mg Tablet) 6 mg PO BEDTIME [facility] Last Admin: 06/05/21 22:09 Dose: 6 mg Documented by: Patient Own Med ( Aripiprazole Er 400 Mg Suser.Syr) 1 each IM Q28D [facility] Last Admin: 06/05/21 14:48 Dose: 1 each Documented by: Ondansetron HCl (Ondansetron Odt 4 Mg Tab.Rapdis) 4 mg TRANSLINGU DAILY PRN PRN Reason: Nausea Last Admin: 05/21/21 14:02 Dose: 4 mg Documented by: Ondansetron HCl (Ondansetron Odt 8 Mg Tab.Rapdis) 8 mg TRANSLINGU BEDTIME [facility] Last Admin: 06/05/21 22:07 Dose: 8 mg Documented by: Quetiapine Fumarate (Quetiapine Fumarate 100 Mg Tablet) 100 mg PO BEDTIME [facility] Last Admin: 06/05/21 22:08 Dose: 100 mg Documented by: Quetiapine Fumarate (Quetiapine Fumarate 50 Mg Tablet) 50 mg PO BID PRN PRN Reason: anxiety Trazodone HCl (Trazodone Hcl 100 Mg Tablet) 300 mg PO BEDTIME [facility] Last Admin: 06/05/21 22:08 Dose: 300 mg Documented by: Allergies Allergies Allergy/AdvReac Type Severity Reaction Status Date / Time metoclopramide [From Reglan] Allergy Muscle Verified 01/08/21 20:46 cramps haloperidol [From Haldol] AdvReac Severe Dystonia Verified 01/08/21 20:46 prazosin AdvReac Severe Abdominal Verified 04/05/21 10:55 Pain sertraline AdvReac Severe Gastrointestinal Verified 05/25/21 17:31 Upset sucralfate [From Carafate] AdvReac Severe vomiting Verified 01/08/21 20:46 band-aids AdvReac Intermediate skin Uncoded 02/04/21 17:52 irritation Assessment & Plan Assessment & Plan (1) PTSD (post-traumatic stress disorder): Status: Acute Code(s): F43.10 - Post-traumatic stress disorder, unspecified (2) Psychogenic nonepileptic seizure: Status: Acute Code(s): F44.5 - Conversion disorder with seizures or convulsions Assessment and Plan: Young woman with complex underlying psychological and psychiatric history suffering from seizure-like episodes with normal EEG. It is important to understand that this type of episodes does not mean that patient is faking. Some recent sophisticated neuro sign to fix studies have suggested that there region is still in the brain though not of epileptic type. This type of syndrome seem to occur or effect people with prior history of psychological or emotional injury, more commonly of sexual type, but there also is likely an underlying cerebral tendency about which we do not have good understanding. Some functional MRI studies have only suggested some dysfunction but it is nature and what to do about it is not known. In awake, this condition is more difficult to treat than epilepsy and more difficult to manage. Probably the most effective treatment is some kind of psychological intervention but even that is marginally effective. In some patient it is a self-limiting disease and seems to disappear after a while. Presence of underlying psychiatric disease of a different nature especially of psychotic type makes things much more complicated. There is no particular pharmacological treatment for this condition but if her mood stabilizer is needed, a medicine like oxcarbazepine, lamotrigine or valproic acid can be used. Finally, there are many patients who have combination of nonepileptic spells and epilepsy, who could be help with this type of medications. Plan 05/18: Discussed changes recommended 05/15, Seroquel previously implemented due to potential to lower seizure threshold and participate in sx presentation. Pt a grees to Mirtazapine discontinuation and Sertraline initiation-states she does not recall discussing these on 05/15. Informed pt that this is the rationale for waiting to implement until today when she was clearer. 05/20/21: Increase clonidine to 0.1 mg bid Change Seroquel 50 mg HS prn to standing per pt request. 05/21/21: Discontinue Sertraline- GI upset Pepcid trial to facilitate relief 05/22/21: Increase Pepcid to bid dosing. 05/24 Increase Seroquel to 100 mg HS and add Melatonin 6 mg HS 05/25/21: Continue current plan 05/26/21 Discussion of placing Sertraline on adverse respons list which she agrees with Seroquel prn added Formulating her list of questions for interview with Dr. Gonzalez - EMDR -His thoughts on why pseudoseizures are presenting -Best DBT skills-currently switch she reports is her best grounding resource. 05/27/21 Continue current plan 05/28/21 Support in transition Initiation of pseudoseizure treatment plan/educational program- understanding seizures, and distinguishing situations, moods and thoughts. Review of seizure log. 05/29/21: Discharge planned for next week DBT consult 06/01/21 Continue pseudoseizure education 05/30/21: Continue current treatment plan 05/31/21: Continue current treatment plan 06/01/21: Support in transition 06/02/21: Continue current plan of care 06/03/21: Abilify 10 mg a.m. Support in discharge and transition. 06/04/21: Continue current plan of care. Termination focus 06/05/21: continue medications unchanged. Received abilify maintena, tolerating medications. 06/06/21: Continue current plan. Support in transition. I spent minutes with the patient and/or on the patient floor today, greater than?50% of which was spent counseling/coordinating care. Patient educated on: therapeutic strategies Informed Consent: understands Reason for contiued inpatient stay Substantial Risk for: harm to self, inability to function and rapid decompensati on
[2021-06-06] MEDS: Ondansetron ODT 8 MG TAB.RAPDIS TRANSLINGU (21:22)
[2021-06-06] MEDS: lamoTRIgine 100 MG TABLET PO (22:11)
[2021-06-06] MEDS: lamoTRIgine 25 MG TABLET PO (22:11)
[2021-06-06] MEDS: hydrOXYzine HCL 50 MG TABLET PO (22:11)
[2021-06-06] MEDS: traZODone HCL 100 MG TABLET 300 MG PO (22:12)
[2021-06-06] MEDS: QUEtiapine Fumarate 100 MG TABLET PO (22:12)
[2021-06-06] MEDS: Melatonin 3 MG TABLET 6 MG PO (22:12)
[2021-06-06 22:28] VITALS: BP 118/71; PULSE 78; RESP 18; TEMP 36.6; O2SAT 97
[2021-06-07 10:00] VITALS: BP 108/61; PULSE 94; RESP 17; TEMP 36.8; O2SAT 99
[2021-06-07] MEDS: ARIPiprazole 10 MG TABLET PO (10:05)
[2021-06-07] MEDS: Famotidine 20 MG TABLET PO ×2 (10:05→21:58)
[2021-06-07] MEDS: cloNIDine HCL 0.1 MG TABLET PO ×2 (10:05→21:58)
[2021-06-07] MEDS: LORazepam 1 MG TABLET PO (15:20)
--- NOTE | 2021-06-07 15:38 | P.PNPSI_ITS ---
Subjective Subjective Date of Service: 06/08/21 Reason For Visit: PTSD Subjective Notes: Conditional Voluntary Healthcare Proxy: No Guardianship: No Medical Problems Affecting Mental Status: No Interim History: Discussed her discharge plans. Smiling, happy, looking forward to the future she reports and reconnecting to her life. A very positive attitude and affect which we have not seen. Medication Compliance: Yes Side effects from medications: No Attending Groups: Yes Mental Status Exam Mental Status Exam Narrative: Patient Appearance:?Appropriate Patient Orientation:?Person, Place, Time and Situation Level of Consciousness:?Alert Patient Behavior:?Talkative and Good Eye Contact Mood Description:?Appropriate Affect Description:?Appropriate Patient Cognition Impaired:?No Ability to Follow Directions:?Good Speech Pattern:?Spontaneous Speech Memory Description:?Intact Hallucinations:?None Delusions:?Not Present Perceptual Disturbances:?Depersonalization and Derealization Thought Process:?Intact and Goal Oriented Thought Content:?positive for Goal Oriented Depressive Symptoms:?Insomnia, Difficulty Sleeping and Low Self Esteem Judgment:?Good Diagnostics Vital Signs (24Hr): Vital Signs - 24 hr 06/06/21 22:28 06/07/21 10:00 Temperature 97.9 F 98.3 F Pulse Rate 78 94 Respiratory Rate 18 17 Blood Pressure 118/71 108/61 Pulse Oximetry 97 99 BMI result Body Mass Index 31.3 Labs Results: 05/15/21 11:24 05/15/21 11:24 Imaging Radiology Impressions: ITS Impressions Head CT 05/15/21 16:53 IMPRESSION: 1. No evidence of acute intracranial hemorrhage or edematous territorial infarction. 2. Redemonstrated 0.7 cm nodular lesion centered within the suprasellar cistern. Medications Medications Current Medications Al Hydroxide/Mg Hydroxide (Magnesium Hydrox/Alum Hydrox 30 Ml Oral.Susp) 30 ml PO Q6H PRN PRN Reason: Heartburn/Nausea Last Admin: 06/01/21 14:03 Dose: 30 ml Documented by: Aripiprazole (Aripiprazole 10 Mg Tablet) 10 mg PO DAILY [facility] Last Admin: 06/07/21 10:05 Dose: 10 mg Documented by: Clonidine HCl (Clonidine Hcl 0.1 Mg Tablet) 0.1 mg PO BID [facility]; Protocol Last Admin: 06/07/21 10:05 Dose: 0.1 mg Documented by: Famotidine (Famotidine 20 Mg Tablet) 20 mg PO BID [facility] Last Admin: 06/07/21 10:05 Dose: 20 mg Documented by: Hydroxyzine HCl (Hydroxyzine Hcl 25 Mg Tablet) 25 mg PO TID PRN PRN Reason: Anxiety Last Admin: 05/25/21 01:58 Dose: 25 mg Documented by: Hydroxyzine HCl (Hydroxyzine Hcl 50 Mg Tablet) 50 mg PO BEDTIME [facility] Last Admin: 06/06/21 22:11 Dose: 50 mg Documented by: Lamotrigine (Lamotrigine 25 Mg Tablet) 25 mg PO BEDTIME [facility] Last Admin: 06/06/21 22:11 Dose: 25 mg Documented by: Lamotrigine (Lamotrigine 100 Mg Tablet) 100 mg PO BEDTIME [facility] Last Admin: 06/06/21 22:11 Dose: 100 mg Documented by: Lorazepam (Lorazepam 1 Mg Tablet) 1 mg PO Q6H PRN PRN Reason: anxiety Last Admin: 06/07/21 15:20 Dose: 1 mg Documented by: Magnesium Hydroxide (Milk Of Magnesia 30 Ml Oral.Susp) 30 ml PO DAILY PRN PRN Reason: Constipation Melatonin (Melatonin 3 Mg Tablet) 6 mg PO BEDTIME [facility] Last Admin: 06/06/21 22:12 Dose: 6 mg Documented by: Patient Own Med ( Aripiprazole Er 400 Mg Suser.Syr) 1 each IM Q28D [facility] Last Admin: 06/05/21 14:48 Dose: 1 each Documented by: Ondansetron HCl (Ondansetron Odt 4 Mg Tab.Rapdis) 4 mg TRANSLINGU DAILY PRN PRN Reason: Nausea Last Admin: 05/21/21 14:02 Dose: 4 mg Documented by: Ondansetron HCl (Ondansetron Odt 8 Mg Tab.Rapdis) 8 mg TRANSLINGU BEDTIME [facility] Last Admin: 06/06/21 21:22 Dose: 8 mg Documented by: Quetiapine Fumarate (Quetiapine Fumarate 100 Mg Tablet) 100 mg PO BEDTIME [facility] Last Admin: 06/06/21 22:12 Dose: 100 mg Documented by: Quetiapine Fumarate (Quetiapine Fumarate 50 Mg Tablet) 50 mg PO BID PRN PRN Reason: anxiety Trazodone HCl (Trazodone Hcl 100 Mg Tablet) 300 mg PO BEDTIME [facility] Last Admin: 06/06/21 22:12 Dose: 300 mg Documented by: Allergies Allergies Allergy/AdvReac Type Severity Reaction Status Date / Time metoclopramide [From Reglan] Allergy Muscle Verified 01/08/21 20:46 cramps haloperidol [From Haldol] AdvReac Severe Dystonia Verified 01/08/21 20:46 prazosin AdvReac Severe Abdominal Verified 04/05/21 10:55 Pain sertraline AdvReac Severe Gastrointestinal Verified 05/25/21 17:31 Upset sucralfate [From Carafate] AdvReac Severe vomiting Verified 01/08/21 20:46 band-aids AdvReac Intermediate skin Uncoded 02/04/21 17:52 irritation Assessment & Plan Assessment & Plan (1) PTSD (post-traumatic stress disorder): Status: Acute Code(s): F43.10 - Post-traumatic stress disorder, unspecified (2) Psychogenic nonepileptic seizure: Status: Acute Code(s): F44.5 - Conversion disorder with seizures or convulsions Assessment and Plan: Young woman with complex underlying psychological and psychiatric history suffering from seizure-like episodes with normal EEG. It is important to under stand that this type of episodes does not mean that patient is faking. Some recent sophisticated neuro sign to fix studies have suggested that there region is still in the brain though not of epileptic type. This type of syndrome seem to occur or effect people with prior history of psychological or emotional injury, more commonly of sexual type, but there also is likely an underlying cerebral tendency about which we do not have good understanding. Some functional MRI studies have only suggested some dysfunction but it is nature and what to do about it is not known. In awake, this condition is more difficult to treat than epilepsy and more difficult to manage. Probably the most effective treatment is some kind of psychological intervention but even that is marginally effective. In some patient it is a self-limiting disease and seems to disappear after a while. Presence of underlying psychiatric disease of a different nature especially of psychotic type makes things much more complicated. There is no particular pharmacological treatment for this condition but if her mood stabil izer is needed, a medicine like oxcarbazepine, lamotrigine or valproic acid can be used. Finally, there are many patients who have combination of nonepileptic spells and epilepsy, who could be help with this type of medications. Plan 05/18: Discussed changes recommended 05/15, Seroquel previously implemented due to potential to lower seizure threshold and participate in sx presentation. Pt agrees to Mirtazapine discontinuation and Sertraline initiation-states she does not recall discussing these on 05/15. Informed pt that this is the rationale for waiting to implement until today when she was clearer. 05/20/21: Increase clonidine to 0.1 mg bid Change Seroquel 50 mg HS prn to standing per pt request. 05/21/21: Discontinue Sertraline- GI upset Pepcid trial to facilitate relief 05/22/21: Increase Pepcid to bid dosing. 05/24 Increase Seroquel to 100 mg HS and add Melatonin 6 mg HS 05/25/21: Continue current plan 05/26/21 Discussion of placing Sertraline on adverse respons list which she agrees with Seroquel prn added Formulating her list of questions for interview with Dr. Gonzalez - EMDR -His thoughts on why pseudoseizures are presenting -Best DBT skills-currently switch she reports is her best grounding resource. 05/27/21 Continue current plan 05/28/21 Support in transition Initiation of pseudoseizure treatment plan/educational program- understanding seizures, and distinguishing situations, moods and thoughts. Review of seizure log. 05/29/21: Discharge planned for next week DBT consult 06/01/21 Continue pseudoseizure education 05/30/21: Continue current treatment plan 05/31/21: Continue current treatment plan 06/01/21: Support in transition 06/02/21: Continue current plan of care 06/03/21: Abilify 10 mg a.m. Support in discharge and transition. 06/04/21: Continue current plan of care. Termination focus 06/05/21: continue medications unchanged. Received abilify maintena, tolerating medications. 06/06/21: Continue current plan. Support in transition. 06/07/21: Support in transition. I spent minutes with the patient and/or on the patient floor today, gre ater than?50% of which was spent counseling/coordinating care. Informed Consent: understands Reason for contiued inpatient stay Substantial Risk for: stable for discharge
[2021-06-07] MEDS: Ondansetron ODT 8 MG TAB.RAPDIS TRANSLINGU (21:47)
[2021-06-07 21:56] VITALS: BP 117/68; PULSE 100; RESP 18; TEMP 36.6; O2SAT 99
[2021-06-07] MEDS: lamoTRIgine 25 MG TABLET PO (21:57)
[2021-06-07] MEDS: QUEtiapine Fumarate 100 MG TABLET PO (21:57)
[2021-06-07] MEDS: hydrOXYzine HCL 50 MG TABLET PO (21:58)
[2021-06-07] MEDS: lamoTRIgine 100 MG TABLET PO (21:58)
[2021-06-07] MEDS: Melatonin 3 MG TABLET 6 MG PO (21:58)
[2021-06-07] MEDS: traZODone HCL 100 MG TABLET 300 MG PO (21:59)
[2021-06-08 08:30] VITALS: BP 107/66; PULSE 100; TEMP 36.6
[2021-06-08] MEDS: ARIPiprazole 10 MG TABLET PO (09:03)
[2021-06-08] MEDS: cloNIDine HCL 0.1 MG TABLET PO ×2 (09:03→22:14)
[2021-06-08] MEDS: Famotidine 20 MG TABLET PO ×2 (09:03→22:14)
[2021-06-08 18:00] VITALS: BP 102/62; PULSE 84; RESP 18; TEMP 36.9; O2SAT 98
--- NOTE | 2021-06-08 19:10 | P.PNPSI_ITS ---
Subjective Subjective Date of Service: 06/08/21 Reason For Visit: PTSD Interim History: I am on the countdown. Terminating with peers, team on the unit. Looking forward to discharge. Message from pt's mother. The parents do not want her to drive and ask for an MD note to support this. Medication Compliance: Yes Side effects from medications: No Attending Groups: Yes Review of Systems Acute medical concerns: No Medical Review of Systems: unchanged Mental Status Exam Mental Status Exam Narrative: Patient Appearance:?Appropriate Patient Orientation:?Person, Place, Time and Situation Level of Consciousness:?Alert Patient Behavior:?Talkative and Good Eye Contact Mood Description:?Appropriate Affect Description:?Appropriate Patient Cognition Impaired:?No Ability to Follow Directions:?Good Speech Pattern:?Spontaneous Speech Memory Description:?Intact Hallucinations:?None Delusions:?Not Present Perceptual Disturbances:?Depersonalization and Derealization Thought Process:?Intact and Goal Oriented Thought Content:?positive for Goal Oriented Depressive Symptoms:?Insomnia, Difficulty Sleeping and Low Self Esteem Judgment:?Good Diagnostics Vital Signs (24Hr): Vital Signs - 24 hr 06/07/21 21:56 06/08/21 08:30 Temperature 97.8 F 97.8 F Pulse Rate 100 100 Respiratory Rate 18 Blood Pressure 117/68 107/66 Pulse Oximetry 99 BMI result Body Mass Index 31.3 Labs Results: 05/15/21 11:24 05/15/21 11:24 Imaging Radiology Impressions: ITS Impressions Head CT 05/15/21 16:53 IMPRESSION: 1. No evidence of acute intracranial hemorrhage or edematous territorial infarction. 2. Redemonstrated 0.7 cm nodular lesion centered within the suprasellar cistern. Medications Medications Current Medications Al Hydroxide/Mg Hydroxide (Magnesium Hydrox/Alum Hydrox 30 Ml Oral.Susp) 30 ml PO Q6H PRN PRN Reason: Heartburn/Nausea Last Admin: 06/01/21 14:03 Dose: 30 ml Documented by: Aripiprazole (Aripiprazole 10 Mg Tablet) 10 mg PO DAILY [facility] Last Admin: 06/08/21 09:03 Dose: 10 mg Documented by: Clonidine HCl (Clonidine Hcl 0.1 Mg Tablet) 0.1 mg PO BID [facility]; Protocol Last Admin: 06/08/21 09:03 Dose: 0.1 mg Documented by: Famotidine (Famotidine 20 Mg Tablet) 20 mg PO BID [facility] Last Admin: 06/08/21 09:03 Dose: 20 mg Documented by: Hydroxyzine HCl (Hydroxyzine Hcl 25 Mg Tablet) 25 mg PO TID PRN PRN Reason: Anxiety Last Admin: 05/25/21 01:58 Dose: 25 mg Documented by: Hydroxyzine HCl (Hydroxyzine Hcl 50 Mg Tablet) 50 mg PO BEDTIME [facility] Last Admin: 06/07/21 21:58 Dose: 50 mg Documented by: Lamotrigine (Lamotrigine 25 Mg Tablet) 25 mg PO BEDTIME [facility] Last Admin: 06/07/21 21:57 Dose: 25 mg Documented by: Lamotrigine (Lamotrigine 100 Mg Tablet) 100 mg PO BEDTIME [facility] Last Admin: 06/07/21 21:58 Dose: 100 mg Documented by: Lorazepam (Lorazepam 1 Mg Tablet) 1 mg PO Q6H PRN PRN Reason: anxiety Last Admin: 06/07/21 15:20 Dose: 1 mg Documented by: Magnesium Hydroxide (Milk Of Magnesia 30 Ml Oral.Susp) 30 ml PO DAILY PRN PRN Reason: Constipation Melatonin (Melatonin 3 Mg Tablet) 6 mg PO BEDTIME [facility] Last Admin: 06/07/21 21:58 Dose: 6 mg Documented by: Patient Own Med ( Aripiprazole Er 400 Mg Suser.Syr) 1 each IM Q28D [facility] Last Admin: 06/05/21 14:48 Dose: 1 each Documented by: Ondansetron HCl (Ondansetron Odt 4 Mg Tab.Rapdis) 4 mg TRANSLINGU DAILY PRN PRN Reason: Nausea Last Admin: 05/21/21 14:02 Dose: 4 mg Documented by: Ondansetron HCl (Ondansetron Odt 8 Mg Tab.Rapdis) 8 mg TRANSLINGU BEDTIME [facility] Last Admin: 06/07/21 21:47 Dose: 8 mg Documented by: Quetiapine Fumarate (Quetiapine Fumarate 100 Mg Tablet) 100 mg PO BEDTIME [facility] Last Admin: 06/07/21 21:57 Dose: 100 mg Documented by: Quetiapine Fumarate (Quetiapine Fumarate 50 Mg Tablet) 50 mg PO BID PRN PRN Reason: anxiety Trazodone HCl (Trazodone Hcl 100 Mg Tablet) 300 mg PO BEDTIME [facility] Last Admin: 06/07/21 21:59 Dose: 300 mg Documented by: Allergies Allergies Allergy/AdvReac Type Severity Reaction Status Date / Time metoclopramide [From Reglan] Allergy Muscle Verified 01/08/21 20:46 cramps haloperidol [From Haldol] AdvReac Severe Dystonia Verified 01/08/21 20:46 prazosin AdvReac Severe Abdominal Verified 04/05/21 10:55 Pain sertraline AdvReac Severe Gastrointestinal Verified 05/25/21 17:31 Upset sucralfate [From Carafate] AdvReac Severe vomiting Verified 01/08/21 20:46 band-aids AdvReac Intermediate skin Uncoded 02/04/21 17:52 irritation Assessment & Plan Assessment & Plan (1) PTSD (post-traumatic stress disorder): Status: Acute Code(s): F43.10 - Post-traumatic stress disorder, unspecified (2) Psychogenic nonepileptic seizure: Status: Acute Code(s): F44.5 - Conversion disorder with seizures or convulsions Assessment and Plan: Young woman with complex underlying psychological and psychiatric history suffering from seizure-like episodes with normal EEG. It is important to understand that this type of episodes does not mean that patient is faking. Some recent sophisticated neuro sign to fix studies have suggested that there region is still in the brain though not of epileptic type. This type of syndrome seem to occur or effect people with prior history of psychological or emotional injury, more commonly of sexual type, but there also is likely an underlying cerebral tendency about which we do not have good understanding. Some functional MRI studies have only suggested some dysfunction but it is nature and what to do about it is not known. In awake, this condition is more difficult to treat than epilepsy and more difficult to manage. Probably the most effective treatment is some kind of psychological intervention but even that is marginally effective. In some patient it is a self-limiting disease and seems to disappear after a while. Presence of underlying psychiatric disease of a different nature especially of psychotic type makes things much more complicated. There is no particular pharmacological treatment for this condition but if her mood stabilizer is needed, a medicine like oxcarbazepine, lamotrigine or valproic acid can be used. Finally, there are many patients who have combination of nonepileptic spells and epilepsy, who could be help with this type of medications. Plan 05/18: Discussed changes recommended 05/15, Seroquel previously implemented due to potential to lower seizure threshold and participate in sx presentation. Pt agr ees to Mirtazapine discontinuation and Sertraline initiation-states she does not recall discussing these on 05/15. Informed pt that this is the rationale for waiting to implement until today when she was clearer. 05/20/21: Increase clonidine to 0.1 mg bid Change Seroquel 50 mg HS prn to standing per pt request. 05/21/21: Discontinue Sertraline- GI upset Pepcid trial to facilitate relief 05/22/21: Increase Pepcid to bid dosing. 05/24 Increase Seroquel to 100 mg HS and add Melatonin 6 mg HS 05/25/21: Continue current plan 05/26/21 Discussion of placing Sertraline on adverse respons list which she agrees with Seroquel prn added Formulating her list of questions for interview with Dr. Gonzalez - EMDR -His thoughts on why pseudoseizures are presenting -Best DBT skills-currently switch she reports is her best grounding resource. 05/27/21 Continue current plan 05/28/21 Support in transition Initiation of pseudoseizure treatment plan/educational program- understanding seizures, and distinguishing situations, moods and thoughts. Review of seizure log. 05/29/21: Discharge planned for next week DBT consult 06/01/21 Continue pseudoseizure education 05/30/21: Continue current treatment plan 05/31/21: Continue current treatment plan 06/01/21: Support in transition 06/02/21: Continue current plan of care 06/03/21: Abilify 10 mg a.m. Support in discharge and transition. 06/04/21: Continue current plan of care. Termination focus 06/05/21: continue medications unchanged. Received abilify maintena, tolerating medications. 06/06/21: Continue current plan. Support in transition. 06/07/21: Support in transition. 06/08/21: Discharge 06/09/21. I spent minutes with the patient and/or on the patient floor today, greater than?50% of which was spent counseling/coordinating care. Informed Consent: understands Reason for contiued inpatient stay Substantial Risk for: stable for discharge
[2021-06-08] MEDS: Ondansetron ODT 8 MG TAB.RAPDIS TRANSLINGU (21:51)
[2021-06-08] MEDS: traZODone HCL 100 MG TABLET 300 MG PO (22:15)
[2021-06-08] MEDS: lamoTRIgine 100 MG TABLET PO (22:15)
[2021-06-08] MEDS: hydrOXYzine HCL 50 MG TABLET PO (22:15)
[2021-06-08] MEDS: Melatonin 3 MG TABLET 6 MG PO (22:16)
[2021-06-08] MEDS: lamoTRIgine 25 MG TABLET PO (22:16)
[2021-06-08] MEDS: QUEtiapine Fumarate 100 MG TABLET PO (22:16)
[2021-06-09 08:30] VITALS: BP 109/58; PULSE 84; TEMP 36.7
[2021-06-09] MEDS: Famotidine 20 MG TABLET PO (09:23)
[2021-06-09] MEDS: cloNIDine HCL 0.1 MG TABLET PO (09:23)
[2021-06-09] MEDS: ARIPiprazole 10 MG TABLET PO (09:23)
--- NOTE | 2021-06-09 17:28 | P.PNPSI_ITS ---
Subjective Subjective Reason For Visit: PTSD Diagnostics Vital Signs (24Hr): Vital Signs - 24 hr 06/08/21 18:00 06/09/21 08:30 Temperature 98.4 F 98.1 F Pulse Rate 84 84 Respiratory Rate 18 Blood Pressure 102/62 109/58 L Pulse Oximetry 98 BMI result Body Mass Index 31.3 Labs Results: 05/15/21 11:24 05/15/21 11:24 Imaging Radiology Impressions: ITS Impressions Head CT 05/15/21 16:53 IMPRESSION: 1. No evidence of acute intracranial hemorrhage or edematous territorial infarction. 2. Redemonstrated 0.7 cm nodular lesion centered within the suprasellar cistern. Medications Allergies Allergies Allergy/AdvReac Type Severity Reaction Status Date / Time metoclopramide [From Reglan] Allergy Muscle Verified 01/08/21 20:46 cramps haloperidol [From Haldol] AdvReac Severe Dystonia Verified 01/08/21 20:46 prazosin AdvReac Severe Abdominal Verified 04/05/21 10:55 Pain sertraline AdvReac Severe Gastrointestinal Verified 05/25/21 17:31 Upset sucralfate [From Carafate] AdvReac Severe vomiting Verified 01/08/21 20:46 band-aids AdvReac Intermediate skin Uncoded 02/04/21 17:52 irritation Assessment & Plan Assessment & Plan (1) PTSD (post-traumatic stress disorder): Status: Acute Code(s): F43.10 - Post-traumatic stress disorder, unspecified (2) Psychogenic nonepileptic seizure: Status: Acute Code(s): F44.5 - Conversion disorder with seizures or convulsions Assessment and Plan: Young woman with complex underlying psychological and psychiatric history suffering from seizure-like episodes with normal EEG. It is important to understand that this type of episodes does not mean that patient is faking. Some recent sophisticated neuro sign to fix studies have suggested that there region is still in the brain though not of epileptic type. This type of syndrome seem to occur or effect people with prior history of psychological or emotional injury, more commonly of sexual type, but there also is likely an underlying cerebral tendency about which we do not have good understanding. Some functional MRI studies have only suggested some dysfunction but it is nature and what to do about it is not known. In awake, this condition is more difficult to treat than epilepsy and more difficult to manage. Probably the most effective treatment is some kind of psychological intervention but even that is marginally effective. In some patient it is a self-limiting disease and seems to disappear after a while. Presence of underlying psychiatric disease of a different nature especially of psychotic type makes things much more compli cated. There is no particular pharmacological treatment for this condition but if her mood stabilizer is needed, a medicine like oxcarbazepine, lamotrigine or valproic acid can be used. Finally, there are many patients who have combination of nonepileptic spells and epilepsy, who could be help with this type of medications. Plan 05/18: Discussed changes recommended 05/15, Seroquel previously implemented due to potential to lower seizure threshold and participate in sx presentation. Pt agrees to Mirtazapine discontinuation and Sertraline initiation-states she does not recall discussing these on 05/15. Informed pt that this is the rationale for waiting to implement until today when she was clearer. 05/20/21: Increase clonidine to 0.1 mg bid Change Seroquel 50 mg HS prn to standing per pt request. 05/21/21: Discontinue Sertraline- GI upset Pepcid trial to facilitate relief 05/22/21: Increase Pepcid to bid dosing. 05/24 Increase Seroquel to 100 mg HS and add Melatonin 6 mg HS 05/25/21: Continue current plan 05/26/21 Discussion of placing Sertraline on adverse respons list which she agrees with Seroquel prn added Formulating her list of questions for interview with Dr. Gonzalez - EMDR -His thoughts on why pseudoseizures are presenting -Best DBT skills-currently switch she reports is her best grounding resource. 05/27/21 Continue current plan 05/28/21 Support in transition Initiation of pseudoseizure treatment plan/educational program- understanding seizures, and distinguishing situations, moods and thoughts. Review of seizure log. 05/29/21: Discharge planned for next week DBT consult 06/01/21 Continue pseudoseizure education 05/30/21: Continue current treatment plan 05/31/21: Continue current treatment plan 06/01/21: Support in transition 06/02/21: Continue current plan of care 06/03/21: Abilify 10 mg a.m. Support in discharge and transition. 06/04/21: Continue current plan of care. Termination focus 06/05/21: continue medications unchanged. Received abilify maintena, tolerating medications. 06/06/21: Continue current plan. Support in transition. 06/07/21: Support in transition. 06/08/21: Discharge 06/09/21. I spent minutes with the patient and/or on the patient floor today, greater than?50% of which was spent counseling/coordinating care.
--- NOTE | 2021-06-12 09:52 | PM.PSYDC ---
DS: Providers Provider Date of Service: 06/09/21 Date of admission: 04/24/21 16:42 Date of discharge: 06/09/21 Primary care physician: Unknown Physician Admitting clinician: Chrissy Ibarra Attending physician on admission: Chrissy Ibarra Consults: 05/15/21 13:39 Consult to Hospitalist Routine Consulting Provider: Hospitalist Reason For Exam: Ext.sz act.this a.m.-hx pseudosz-poor resp-ativan 05/15/21 15:27 Consult to Neurology Routine Consulting Provider: [facility] Reason for consultation: pseudoseizure/increase in intensity/timing Has provider been notified: No Attending physician on discharge: Joann White Discharging clinician: Joann White DS: Diagnosis Discharge Diagnosis (1) PTSD (post-traumatic stress disorder): Status: Acute (2) Psychogenic nonepileptic seizure: Status: Acute DS: Medications Discharge Medications Home Medications: Previous Rx's Medication Instructions Recorded aripiprazole 400 mg intramuscular 400 mg IM QMONTH #1 ea 06/05/21 suspension,extended release (Abilify Maintena) Patient Own Medication 1 ea IM Q28D #0 06/09/21 aripiprazole 10 mg tablet 1 tab PO DAILY #30 tab 06/09/21 clonidine HCl 0.1 mg tablet 0.1 mg PO BID #60 tab 06/09/21 famotidine 20 mg tablet 20 mg PO BID #60 tab 06/09/21 hydroxyzine HCl 25 mg tablet 25 mg PO TID PRN #90 tab 06/09/21 hydroxyzine HCl 50 mg tablet 1 tab PO BEDTIME #30 tab 06/09/21 lamotrigine 100 mg tablet 100 mg PO BEDTIME #30 tab 06/09/21 lamotrigine 25 mg tablet 25 mg PO BEDTIME #30 tab 06/09/21 lorazepam 1 mg tablet 1 mg PO DAILY PRN #30 tab 06/09/21 melatonin 3 mg tablet 6 mg PO BEDTIME #60 tab 06/09/21 ondansetron 4 mg disintegrating 4 mg TRANSLINGUAL DAILY PRN #30 tab 06/09/21 tablet ondansetron 8 mg disintegrating 8 mg TRANSLINGUAL BEDTIME #30 tab 06/09/21 tablet quetiapine 100 mg tablet 100 mg PO BEDTIME #30 tab 06/09/21 quetiapine 50 mg tablet 50 mg PO BID PRN #60 tab 06/09/21 trazodone 100 mg tablet 300 mg PO BEDTIME #90 tab 06/09/21 Mental Status Exam Mental Status Exam Narrative: Patient Appearance:?Appropriate Patient Orientation:?Person, Place, Time and Situation Level of Consciousness:?Alert Patient Behavior:?Talkative and Good Eye Contact Mood Description:?Appropriate Affect Description:?Appropriate Patient Cognition Impaired:?No Ability to Follow Directions:?Good Speech Pattern:?Spontaneous Speech Memory Description:?Intact Hallucinations:?None Delusions:?Not Present Perceptual Disturbances:?Depersonalization and Derealization Thought Process:?Intact and Goal Oriented Thought Content:?positive for Goal Oriented Depressive Symptoms:?Insomnia, Difficulty Sleeping and Low Self Esteem Judgment:?Good Data Imaging Diagnostic Imaging Impressions Head CT 05/15/21 16:53 IMPRESSION: 1. No evidence of acute intracranial hemorrhage or edematous territorial infarction. 2. Redemonstrated 0.7 cm nodular lesion centered within the suprasellar cistern. DS: Summary Hospital Course Hospital Course: Admission to adult psychiatry on conditional voluntary status to address symptoms of PTSD, pseudoseizures. Care plan, medication regime and out patient plan of care prior to admission were reviewed. Education was provided regarding management of symptoms, medications and side effects. Nursing and 7th grade social studies teacher worked with Delaney on care planning, education regarding management of symptoms, medications and discharge planning. Pseudoseizure mgt was addressed with Delaney during this admission. [facility] worked with [facility] to organize a residential placement with [facility] Pt will follow up with [facility] neurology regarding pseudoseizure activity and MG for pituitary ademona treatment. Time spent discussing smoking cessation with patient: 3 to 10 minutes Status at Discharge Functional status at discharge: independent ambulation Overall status at discharge: patient is back to baseline Time Spent with Patient Time attestation: Total time spent providing and/or coordinating discharge services:35 Time spent: Greater than 30 minutes Discharge Plan Discharge Patient Disposition: Xfer Other Discharge Diagnosis: PTSD Pseudoseizure Recurrent Major Depression, Severe Irritable Bowel Syndrome Referrals: Neurosurgeon: Dr. Mamie Tsai ([facility]) [Other] - 06/29/21 9:15 am (Virtual ) Opthalmologist: Dr. Espinoza Slaughter ([facility]) [Other] - 07/29/21 11:00 am (In office ) Dr. Lon Queen ([facility]) [Other] - 08/06/21 2:00 pm Residential Placement: [facility] [place] [Other] - 1 Week ACCS Clinician: Barbie Simpson ([facility]) [Other] - 1 Week (Call for support as needed) [facility] Chief Counsel: Margret Sesay ([facility]) [Other] - 1 Week (Call for support as needed ) Dr. Mead ([facility]) [Other] - 06/11/21 11:15 am (Telehealth for medical marijuana re-certification- they will call to review your medications at 11 am) [facility] [Other] - 06/12/21 8:15 am (They will call your phone between 8:15am and 9:15am ) Issac Tierney MD [Physician] - 07/09/21 2:00 pm Sara Harding NP [Nurse Practitioner] - 07/01/21 11:15 am (IN OFFICE) Discharge Medications: New clonidine HCl 0.1 mg Tablet 0.1 mg PO BID Qty: 60 0RF Protocol: Hold for SBP< HOLD for SBP < : 90 melatonin 3 mg Tablet 6 mg PO BEDTIME Qty: 60 0RF quetiapine 100 mg Tablet 100 mg PO BEDTIME Qty: 30 0RF lamotrigine 25 mg Tablet 25 mg PO BEDTIME Qty: 30 0RF famotidine 20 mg Tablet 20 mg PO BID Qty: 60 0RF trazodone 100 mg Tablet 300 mg PO BEDTIME Qty: 90 0RF quetiapine 50 mg Tablet 50 mg PO BID PRN (Reason: anxiety) Qty: 60 0RF Patient Own Medication 1 ea IM Q28D Qty: 0 0RF Continued Abilify Maintena 400 mg suspension,extended rel recon 400 mg IM QMONTH Qty: 1 0RF hydroxyzine HCl 50 mg tablet 1 tab PO BEDTIME Qty: 30 0RF ondansetron 8 mg Tablet,Disintegrating 8 mg translingual BEDTIME Qty: 30 0RF lorazepam 1 mg tablet 1 mg PO DAILY PRN (Reason: anxiety) Qty: 30 0RF ondansetron 4 mg Tablet,Disintegrating 4 mg translingual DAILY PRN (Reason: Nausea) Qty: 30 0RF lamotrigine 100 mg tablet 100 mg PO BEDTIME Qty: 30 0RF aripiprazole 10 mg tablet 1 tab PO DAILY Qty: 30 0RF Changed hydroxyzine HCl 25 mg tablet 25 mg PO TID PRN (Reason: Anxiety) Qty: 90 0RF Discontinued trazodone 100 mg Tablet 100 mg PO BEDTIME Qty: 30 0RF risperidone 0.5 mg Tablet 0.5 mg PO BID PRN (Reason: grounding) Qty: 60 0RF clonazepam 0.5 mg tablet 1 tab PO BID PRN (Reason: Anxiety) Qty: 60 0RF mirtazapine 45 mg tablet 22.5 mg PO BEDTIME 0RF risperidone [Risperdal] 1 mg tablet 1 mg PO BID 0RF Discharge Orders: Discharge Order (Routine); Ordered 06/09/21 Ordered By: Joann White Diet: advance to usual diet Activity on Discharge: No Driving Stand Alone Forms: Patient Portal Discharge page, Community Support Care Plan Goals: Mood Stabilization Health Concerns: PTSD Psychogenic Seizures Recurrent Major Depression IBS Plan of Treatment: Take medications as directed Follow up with medical and psychiatric appointments At this time neurology has informed your parents that you should not drive. Follow up with [facility] for ongoing pituitary evaluation Assessment: non suicidal, non psychotic Discharge Date/Time: 06/09/21 13:43
== END 2021-06-09 13:43 | disposition other institution (70) | DRG 885 ==
LOC: HO.ED 04-24 11:43 → HO.PM5 04-24 16:49
PROVIDERS: Hospitalist; Physician Assistant; Psychiatry & Neurology Psychiatry; Admitting Provider Psychiatry & Neurology Psychiatry; Emergency Provider Student in an Organized Health Care Education/Training Program; Visit Provider Clinical Nurse Specialist Psychiatric/Mental Health, Adult
DX: F25.0 Schizoaffective disorder, bipolar type (principal); R45.851 Suicidal ideations; K58.9 Irritable bowel syndrome, unspecified; F43.10 Post-traumatic stress disorder, unspecified; F44.5 Conversion disorder with seizures or convulsions; Z20.822 Contact with and (suspected) exposure to COVID-19; Z91.52 Personal history of nonsuicidal self-harm; Z91.51 Personal history of suicidal behavior; Z87.891 Personal history of nicotine dependence; Z88.8 Allergy status to other drugs, medicaments and biological substances; Z79.899 Other long term (current) drug therapy
CPT/HCPCS: 36415; 70450; 80053; 80061; 80307; 81003; 81025; 82530; 82607; 82670; 82681; 82746; 83001; 83002; 83036; 83519; 83735; 84146; 84439; 84443; 85025; 85027; 87635; 90715; 93005; 99284; 99285; J0401

== ENCOUNTER 2021-09-12 20:19 | Emergency (ER) | payer OTHER, MEDICAID, SELFPAY ==
[2021-09-12 20:31] VITALS: BP 110/70; BP 129/66; PULSE 110; PULSE 97; RESP 16; TEMP 37.2; O2SAT 100; BMI 25.8
== END 2021-09-12 21:20 | disposition left against medical advice (07) ==
PROVIDERS: Emergency Provider Emergency Medicine
DX: S09.90XA Unspecified injury of head, initial encounter (principal); Y04.2XXA Assault by strike against or bumped into by another person, initial encounter; Y93.9 Activity, unspecified; Y92.9 Unspecified place or not applicable; Y99.9 Unspecified external cause status
CPT/HCPCS: 99281

== ENCOUNTER 2021-10-09 17:56 | Emergency (ER) | payer MEDICAID, SELFPAY ==
[2021-10-09 18:04] VITALS: BP 128/86; PULSE 75; RESP 19; TEMP 36.9; O2SAT 100
[2021-10-09 18:11] VITALS: BP 121/80; PULSE 75; O2SAT 98
[2021-10-09 18:23] VITALS: BP 128/86; PULSE 75; RESP 18; TEMP 36.9; O2SAT 100
--- NOTE | 2021-10-09 20:11 | PC.NURSE ---
pt called author into room to inform me that she would like to leave. Encouraged pt to stay for evaluation, as this is new for her. Patient refused, stated she was tired and that she has been here for hours and hasnt been seen. allowed pt to vent frustrations. Notified charge.
--- NOTE | 2021-10-09 21:33 | ED.GENADULT ---
HPI - General Adult General Chief complaint: Seizure Stated complaint: Sudo Seizure Time Seen by Provider: 10/09/21 20:21 Source: patient Mode of arrival: EMS Limitations: no limitations History of Present Illness HPI narrative: seizure like activity after having bad emotional day MD complaint: event - movement Onset (ago): minute(s) (just prior to arrival ) Location: head Severity: mild Relieving factors: none Exacerbating factors: other (life stress) Associated symptoms: denies other symptoms Treatments prior to arrival: none Related Data Previous Rx's Medication Instructions Recorded aripiprazole 400 mg intramuscular 400 mg IM QMONTH #1 ea 06/05/21 suspension,extended release (Abilify Maintena) Patient Own Medication 1 ea IM Q28D ##0 06/09/21 aripiprazole 10 mg tablet 1 tab PO DAILY #30 tabs 06/09/21 clonidine HCl 0.1 mg tablet 0.1 mg PO BID #60 tabs 06/09/21 famotidine 20 mg tablet 20 mg PO BID #60 tabs 06/09/21 hydroxyzine HCl 25 mg tablet 25 mg PO TID PRN Anxiety #90 tabs 06/09/21 hydroxyzine HCl 50 mg tablet 1 tab PO BEDTIME #30 tabs 06/09/21 lamotrigine 100 mg tablet 100 mg PO BEDTIME #30 tabs 06/09/21 lamotrigine 25 mg tablet 25 mg PO BEDTIME #30 tabs 06/09/21 lorazepam 1 mg tablet 1 mg PO DAILY PRN anxiety #30 tabs 06/09/21 melatonin 3 mg tablet 6 mg PO BEDTIME #60 tabs 06/09/21 ondansetron 4 mg disintegrating 4 mg translingual DAILY PRN Nausea 06/09/21 tablet #30 tabs ondansetron 8 mg disintegrating 8 mg translingual BEDTIME #30 tabs 06/09/21 tablet quetiapine 100 mg tablet 100 mg PO BEDTIME #30 tabs 06/09/21 quetiapine 50 mg tablet 50 mg PO BID PRN anxiety #60 tabs 06/09/21 trazodone 100 mg tablet 300 mg PO BEDTIME #90 tabs 06/09/21 aripiprazole 10 mg tablet (Abilify) 10 mg PO DAILY #30 tabs 07/07/21 aripiprazole 400 mg intramuscular 400 mg IM QMONTH #1 ea 07/07/21 suspension,extended release (Zohra Peralta) clonidine HCl 0.1 mg tablet 0.1 mg PO BID #60 tabs 07/07/21 famotidine 20 mg tablet 20 mg PO BID #60 tabs 07/07/21 hydroxyzine HCl 50 mg tablet 50 mg PO BEDTIME #30 tabs 07/07/21 lamotrigine 100 mg tablet 100 mg PO BEDTIME #30 tabs 07/07/21 (Lamictal) lamotrigine 25 mg tablet (Lamictal) 25 mg PO BEDTIME 30 days #30 tabs 07/07/21 melatonin 1 mg tablet 1 mg PO BEDTIME #30 tabs 07/07/21 melatonin 5 mg tablet 5 mg PO BEDTIME #30 tabs 07/07/21 ondansetron 4 mg disintegrating 4 mg PO DAILY PRN nausea #30 tabs 07/07/21 tablet ondansetron 8 mg disintegrating 8 mg PO BEDTIME #30 tabs 07/07/21 tablet quetiapine 100 mg tablet (Seroquel) 100 mg PO BEDTIME #30 tabs 07/07/21 quetiapine 50 mg tablet (Seroquel) 50 mg PO BID PRN anxiety #60 tabs 07/07/21 trazodone 300 mg tablet 300 mg PO BEDTIME PRN insomnia #30 07/07/21 tabs lorazepam 1 mg tablet 1 mg PO DAILY PRN anxiety #30 tabs 07/09/21 Allergies Allergy/AdvReac Type Severity Reaction Status Date / Time metoclopramide [From Reglan] Allergy Muscle Verified 01/08/21 20:46 cramps haloperidol [From Haldol] AdvReac Severe Dystonia Verified 01/08/21 20:46 prazosin AdvReac Severe Abdominal Verified 04/05/21 10:55 Pain sertraline AdvReac Severe Gastrointestinal Verified 05/25/21 17:31 Upset sucralfate [From Carafate] AdvReac Severe vomiting Verified 01/08/21 20:46 band-aids AdvReac Intermediate skin Uncoded 02/04/21 17:52 irritation Review of Systems Review of Systems: Constitutional : No Fever, No Chills ENT/Mouth : No Ear Pain, No Nasal Congestion, No sore throat Eyes: No Eye Pain, No Swelling, No Redness Cardiovascular : No Chest Pain, No SOB Respiratory : No Cough, No Sputum, No Dyspnea Gastrointestinal : No Nausea, No Vomiting, No Diarrhea, No Hematochezia, No Melena Genitourinary : No Dysuria, No Urinary Frequency, No Hematuria Musculoskeletal : No Myalgias Skin : No Skin Lesions, No rash Neuro : No Weakness, No Numbness, No Paresthesias, No Dizziness, No Headache Psych : positive Anxiety, positive Depression, no SI/HI All other systems reviewed and are negative [facility] Past Medical History Attestation statement: The following information was validated with the patient. Medical History Anxiety Depression IBS (irritable bowel syndrome) PTSD (post-traumatic stress disorder) Schizoaffective disorder, bipolar type Schizoaffective disorder, depressive type Schizophrenia Schizophrenia Umbilical hernia Surgical History History of cholecystectomy Social History Social History Household Members: Unknown / Unable to assess and Other Household Members Other:: Respite care facility Housing: Assisted Living Facility Housing Other:: respite Do you presently have visiting nurse or other home services: No Unable to assess alcohol history related to: Unknown Patient Tobacco Use Status: Former Tobacco user Tobacco use type: Cigarette e-Cigarette/Vaping Use: Never Used Second Hand Smoke Exposure: No Substance Use Type: Marijuana Advance Directives: No Advance Directives Information Provided: No service: No Current occupational status: disabled Sexual orientation: Lesbian/Greer/Homosexual Physical Exam ED Vital Signs: Vital Signs - 24 hr 10/09/21 18:04 10/09/21 18:23 Temperature 98.4 F 98.4 F Pulse Rate 75 75 Respiratory Rate 19 18 Blood Pressure 128/86 128/86 Pulse Oximetry 100 100 Oxygen Delivery Method Room Air Room Air BMI result Body Mass Index 0.0 Appearance: Alert. Oriented X3. No acute distress. Eyes: Pupils equal, round and reactive to light. ENT: Pharynx normal. Neck: Normal inspection. Neck supple. CVS: Normal heart rate and rhythm. Pulses normal. Respiratory: No respiratory distress. Breath sounds normal. Abdomen: Soft and nontender. Skin: Skin warm and dry. Normal skin color. Normal skin turgor. Extremities: No lower extremity edema. No calf ttp scars and scabbed over linear abrasions to both forearms Neuro: Oriented X 3. No motor deficit. No sensory deficit. Medical Decision Making MDM Narrative Medical decision making narrative: 26 yo female with hx of depression PTSD, schizophrenia, pituitary lesion, nonepileptic seizures here with c/o having a rough day but no SI, had an episode where she was watching TV then suspect she has another nonepileptic event - patient has incontinence no tongue biting. She states she feels fine now and wants to go home. She feels supported and can manage at the [place] [facility]. Discharge Plan Discharge Clinical Impression: Psychogenic nonepileptic seizure Patient Disposition: Home, Self-Care Instructions: Epilepsy (ED), Post Traumatic Stress Disorder (ED) Additional Instructions: return to ED for any worsening symptoms or concerns continue your medications and follow up with your doctors Prescriptions: No Action Abilify Maintena 400 mg suspension,extended rel recon 400 mg IM QMONTH Qty: 1 0RF clonidine HCl 0.1 mg Tablet 0.1 mg PO BID Qty: 60 0RF Protocol: Hold for SBP< HOLD for SBP < : 90 melatonin 3 mg Tablet 6 mg PO BEDTIME Qty: 60 0RF quetiapine 100 mg Tablet 100 mg PO BEDTIME Qty: 30 0RF lamotrigine 25 mg Tablet 25 mg PO BEDTIME Qty: 30 0RF famotidine 20 mg Tablet 20 mg PO BID Qty: 60 0RF trazodone 100 mg Tablet 300 mg PO BEDTIME Qty: 90 0RF quetiapine 50 mg Tablet 50 mg PO BID PRN (Reason: anxiety) Qty: 60 0RF Patient Own Medication 1 ea IM Q28D Qty: 0 0RF hydroxyzine HCl 50 mg tablet 1 tab PO BEDTIME Qty: 30 0RF ondansetron 8 mg Tablet,Disintegrating 8 mg translingual BEDTIME Qty: 30 0RF hydroxyzine HCl 25 mg tablet 25 mg PO TID PRN (Reason: Anxiety) Qty: 90 0RF lorazepam 1 mg tablet 1 mg PO DAILY PRN (Reason: anxiety) Qty: 30 0RF ondansetron 4 mg Tablet,Disintegrating 4 mg translingual DAILY PRN (Reason: Nausea) Qty: 30 0RF lamotrigine 100 mg tablet 100 mg PO BEDTIME Qty: 30 0RF aripiprazole 10 mg tablet 1 tab PO DAILY Qty: 30 0RF clonidine HCl 0.1 mg tablet 0.1 mg PO BID Qty: 60 0RF famotidine 20 mg tablet 20 mg PO BID Qty: 60 0RF lamotrigine [Lamictal] 100 mg tablet 100 mg PO BEDTIME Qty: 30 0RF lamotrigine [Lamictal] 25 mg tablet 25 mg PO BEDTIME 30 Days Qty: 30 0RF melatonin 5 mg tablet 5 mg PO BEDTIME Qty: 30 0RF melatonin 1 mg tablet 1 mg PO BEDTIME Qty: 30 0RF quetiapine [Seroquel] 100 mg tablet 100 mg PO BEDTIME Qty: 30 0RF quetiapine [Seroquel] 50 mg tablet 50 mg PO BID PRN (Reason: anxiety) Qty: 60 0RF trazodone 300 mg tablet 300 mg PO BEDTIME PRN (Reason: insomnia) Qty: 30 0RF Abilify Maintena 400 mg suspension,extended rel recon 400 mg IM QMONTH Qty: 1 0RF aripiprazole [Abilify] 10 mg tablet 10 mg PO DAILY Qty: 30 0RF hydroxyzine HCl 50 mg tablet 50 mg PO BEDTIME Qty: 30 0RF ondansetron 8 mg tablet,disintegrating 8 mg PO BEDTIME Qty: 30 0RF ondansetron 4 mg tablet,disintegrating 4 mg PO DAILY PRN (Reason: nausea) Qty: 30 0RF lorazepam 1 mg tablet 1 mg PO DAILY PRN (Reason: anxiety) Qty: 30 0RF
[2021-10-09 21:42] VITALS: BP 107/69; PULSE 83; O2SAT 96
== END 2021-10-09 21:57 | disposition home or self-care (01) ==
PROVIDERS: Emergency Provider Emergency Medicine; PCP Nurse Practitioner Family
DX: G40.409 Other generalized epilepsy and epileptic syndromes, not intractable, without status epilepticus (principal); F43.9 Reaction to severe stress, unspecified; Z79.899 Other long term (current) drug therapy; Z87.891 Personal history of nicotine dependence
CPT/HCPCS: 99282; 99283

== ENCOUNTER 2022-03-04 09:53 | Emergency (ER) | payer MEDICAID, OTHER, SELFPAY ==
[2022-03-04 10:17] VITALS: BP 126/80; PULSE 81; RESP 16; TEMP 36.7; O2SAT 98; BMI 29.2
--- NOTE | 2022-03-04 10:34 | ED_ITS ---
HPI - General Adult General Chief complaint: Psychiatric Symptoms <RISHI Mayberry Last Filed: 03/04/22 18:46> Stated complaint: Crisis <RISHI Mayberry Last Filed: 03/04/22 18:46> Time Seen by Provider: 03/04/22 10:33 <RISHI Mayberry Last Filed: 03/04/22 18:46> Source: patient <RISHI Mayberry Last Filed: 03/04/22 18:46> Mode of arrival: ambulatory <RISHI Mayberry Last Filed: 03/04/22 18:46> Limitations: no limitations <RISHI Mayberry Last Filed: 03/04/22 18:46> History of Present Illness HPI narrative: Patient is a 26 year old assigned female at with a history of PTSD and depression presenting to the emergency department today with suicidal ideation. Patient states that she has been having much more life stress and has felt suicidal. Patient denies any dizziness, lightheadedness, abdominal pain, nausea, vomiting, fever, chills, blurry vision, double vision, loss of vision, chest pain, difficulty breathing, shortness of breath, back pain, night sweats, pain with urination, increased urinary frequency, increased urinary urgency, blood in her urine or stool, syncope or a near syncopal episode, recent trauma or falls, bowel incontinence, bladder incontinence, bowel retention, bladder retention, or any other complaints at this time. <RISHI Mayberry - Last Filed: 03/04/22 18:46> Onset (ago): day(s) <RISHI Mayberry - Last Filed: 03/04/22 18:46> Severity: mild <RISHI Mayberry - Last Filed: 03/04/22 18:46> Relieving factors: none <RISHI Mayberry Last Filed: 03/04/22 18:46> Exacerbating factors: none <RISHI Mayberry Last Filed: 03/04/22 18:46> Associated symptoms: denies other symptoms <RISHI Mayberry Last Filed: 03/04/22 18:46> Related Data Home medications: Home Medications Medication Instructions Recorded Confirmed aripiprazole 10 mg tablet 1 tab PO QAM 03/04/22 03/04/22 ondansetron HCl 8 mg tablet 1 tab PO BEDTIME 03/04/22 03/04/22 <RISHI Mayberry Last Filed: 03/04/22 18:46> Allergies/adverse reactions: Allergies Allergy/AdvReac Type Severity Reaction Status Date / Time metoclopramide [From Reglan] Allergy Muscle Verified 01/08/21 20:46 cramps haloperidol [From Haldol] AdvReac Severe Dystonia Verified 01/08/21 20:46 prazosin AdvReac Severe Abdominal Verified 04/05/21 10:55 Pain sertraline AdvReac Severe Gastrointestinal Verified 05/25/21 17:31 Upset sucralfate [From Carafate] AdvReac Severe vomiting Verified 01/08/21 20:46 band-aids AdvReac Intermediate skin Uncoded 02/04/21 17:52 irritation <RISHI Mayberry Last Filed: 03/04/22 18:46> Review of Systems Constitutional: Constitutional: Reports no additional constitutional complaints, Denies chills, Denies fever(s) and Denies night sweats <RISHI Mayberry Last Filed: 03/04/22 18:46> Eyes: Eyes: Reports no additional eye complaints, Denies blurry vision, Denies change in vision, Denies diplopia, Denies eye discharge, Denies loss of vision and Denies eye pain <RISHI Mayberry Last Filed: 03/04/22 18:46> ENT: Denies dizziness <RISHI Mayberry Last Filed: 03/04/22 18:46> Cardiovascular: Cardiovascular: Reports no additional cardiovascular complaints, Denies chest pain, Denies lightheadedness, Denies Loss of Consciousness and Denies dyspnea <RISHI Mayberry Last Filed: 03/04/22 18:46> Respiratory: Respiratory: Reports no additional respiratory complaints and Denies dyspnea <RISHI Mayberry Last Filed: 03/04/22 18:46> Gastrointestinal: Gastrointestinal: Reports no additional gastrointestinal complaints, Denies abdominal pain, Denies melena, Denies hematochezia, Denies change in bowel habits and Denies change in stool character <RISHI Mayberry Last Filed: 03/04/22 18:46> Genitourinary: Genitourinary: Denies hematuria, Denies urinary frequency, Denies dysuria, Denies urinary incontinence, Denies urinary hesitancy and Denies urinary urgency <RISHI Mayberry - Last Filed: 03/04/22 18:46> Musculoskeletal: Musculoskeletal: Reports no additional musculoskeletal complaints, Denies numbness and Denies tingling <RISHI Mayberry - Last Filed: 03/04/22 18:46> Neurologic: Denies dizziness, Denies loss of vision, Denies numbness and Denies tingling <RISHI Mayberry - Last Filed: 03/04/22 18:46> Psychiatric: Psychiatric: Reports no additional psychiatric complaints and Reports suicidal ideation <RISHI Mayberry - Last Filed: 03/04/22 18:46> Endocrine: Endocrine: Reports no additional endocrine complaints <RISHI Mayberry - Last Filed: 03/04/22 18:46> Hematologic/Lymphatic: Hematologic/Lymphatic: Reports no additional hematologic/lymphatic complaints <RISHI Mayberry - Last Filed: 03/04/22 18:46> Allergic/Immunologic: Allergic/Immunologic: Reports no additional allergic/immunologic complaints <RISHI Mayberry - Last Filed: 03/04/22 18:46> PMFSH Past Medical History Attestation statement: The following information was validated with the patient. <RISHI Mayberry - Last Filed: 03/04/22 18:46> Source: old records reviewed and nursing notes reviewed <RISHI Mayberry - Last Filed: 03/04/22 18:46> Medical History: Medical History Anxiety Depression IBS (irritable bowel syndrome) PTSD (post-traumatic stress disorder) Schizoaffective disorder, bipolar type Schizoaffective disorder, depressive type Schizophrenia Schizophrenia Umbilical hernia <RISHI Mayberry - Last Filed: 03/04/22 18:46> Surgical History: Surgical History History of cholecystectomy <RISHI Mayberry - Last Filed: 03/04/22 18:46> Social History Social History: Social History Household Members: Unknown / Unable to assess and Other Household Members Other:: Respite care facility Housing: Assisted Living Facility Housing Other:: respite Do you presently have visiting nurse or other home services: No Unable to assess alcohol history related to: Unknown Alcohol intake: never Patient Tobacco Use Status: Former Tobacco user Tobacco use type: Cigarette Smoked in Last 30 Days: Yes e-Cigarette/Vaping Use: Never Used Second Hand Smoke Exposure: No Use of substances other than those prescribed or required for medical reasons: Yes Substance Use Type: Marijuana Substance Use Frequency: Daily Advance Directives: No Advance Directives Information Provided: No service: No Current occupational status: disabled Sexual orientation: Lesbian/Greer/Homosexual <RISHI Mayberry - Last Filed: 03/04/22 18:46> Physical Exam ED Vital Signs: Vital Signs - 24 hr 03/05/22 06:08 03/05/22 09:39 Temperature 98.2 F 98.1 F Pulse Rate 76 76 Respiratory Rate 16 Blood Pressure 124/78 110/67 Pulse Oximetry 99 99 Oxygen Delivery Method Room Air Room Air BMI result Body Mass Index 29.2 <RISHI Mayberry - Last Filed: 03/04/22 18:46> Vital Signs - 24 hr 03/05/22 06:08 03/05/22 09:39 Temperature 98.2 F 98.1 F Pulse Rate 76 76 Respiratory Rate 16 Blood Pressure 124/78 110/67 Pulse Oximetry 99 99 Oxygen Delivery Method Room Air Room Air BMI result Body Mass Index 29.2 <Chuck Braun MD - Last Filed: 03/05/22 10:30> Const General: cooperative, no acute distress, alert and awake <RISHI Mayberry - Last Filed: 03/04/22 18:46> Nutritional Appearance: well nourished <RISHI Mayberry - Last Filed: 03/04/22 18:46> Orientation/consciousness: patient oriented x3 <RISHI Mayberry - Last Filed: 03/04/22 18:46> Limitations: no limitations <RISHI Mayberry - Last Filed: 03/04/22 18:46> HENMT Head: Yes normal to inspection and Yes atraumatic <RISHI Mayberry - Last Filed: 03/04/22 18:46> Ears: hearing grossly normal bilaterally and external ears normal <RISHI Mayberry - Last Filed: 03/04/22 18:46> General nose exam: Normal external nose present, no nasal discharge noted and no epistaxis <RISHI Mayberry - Last Filed: 03/04/22 18:46> Face and sinus: Yes normal facial exam, No abrasion and No laceration <RISHI Mayberry - Last Filed: 03/04/22 18:46> Mouth: Normal oral and palatal mucosa present, no drooling and no muffled voice <Maddy Cesar PA - Last Filed: 03/04/22 18:46> Eyes General: appearance normal, both eyes and all related structures <RISHI Mayberry - Last Filed: 03/04/22 18:46> Periorbital: periorbital findings normal <RISHI Mayberry - Last Filed: 03/04/22 18:46> Eyelids: Yes eyelids normal <RISHI Mayberry - Last Filed: 03/04/22 18:46> Conjunctivae: conjunctivae normal <Maddy Cesar PA - Last Filed: 03/04/22 18:46> Pupils: Equal, round and reactive pupils present <RISHI Mayberry - Last Filed: 03/04/22 18:46> EOM: EOMs intact bilaterally <RISHI Mayberry - Last Filed: 03/04/22 18:46> Neck Neck: Yes normal visual inspection, Yes full ROM and Yes no lymphadenopathy <RISHI Mayberry - Last Filed: 03/04/22 18:46> Chest Chest palpation & inspection: normal inspection of the chest <RISHI Mayberry - Last Filed: 02/21 04/15 18:46> Resp Effort & Inspection: normal respiratory effort and able to speak in complete sentences <RISHI sIrael - Last Filed: 03/04/22 18:46> Auscultation: clear to auscultation bilaterally <RISHI Mayberry - Last Filed: 03/04/22 18:46> Cardio Rate: regular rate <RISHI Mayberry Last Filed: 03/04/22 18:46> Rhythm: regular rhythm <RISHI Mayberry Last Filed: 03/04/22 18:46> GI Inspection: Yes normal to inspection <Maddygene DuncanRISHI rollins - Last Filed: 03/04/22 18:46> Neuro General: patient oriented x3 and moves all extremities <Maddy DuncanRISHI rollins - Last Filed: 03/04/22 18:46> Cranial nerves: Yes Equal, round and reactive pupils present <Maddygene DuncanRISHI rollnis - Last Filed: 03/04/22 18:46> Cognition (Neuro): normal cognition <Maddygene DuncanRISHI rollins - Last Filed: 03/04/22 18:46> Motor exam (neuro): 5/5 motor strength present throughout <Maddygene DuncanRISHI rollins - Last Filed: 03/04/22 18:46> Sensory Exam: Normal double simultaneous stimulation for sensation <Maddy DuncanRISHI rollins - Last Filed: 03/04/22 18:46> Coordination: [id number] test normal <RISHI Mayberry - Last Filed: 03/04/22 18:46> Extrem General: Yes normal to inspection, Yes full ROM and Yes capillary refill normal <Maddygene DuncanRISHI rollins - Last Filed: 03/04/22 18:46> Psych Appearance: grossly normal <RISHI Mayberry - Last Filed: 03/04/22 18:46> Mental Status: mental status grossly normal <Maddygene DuncanRISHI rollins - Last Filed: 03/04/22 18:46> Affect: normal affect <RISHI Mayberry - Last Filed: 03/04/22 18:46> Attitude: cooperative <RISHI Mayberry - Last Filed: 03/04/22 18:46> Thought process: Normal thought process present <RISHI Mayberry - Last Filed: 03/04 18:46> Thought content: Suicidality present <RISHI Mayberry - Last Filed: 03/04/22 18:46> Insight: Good insight present (Psych) <RISHI Mayberry - Last Filed: 03/04/22 18:46> Course Reevaluation(s) Reevaluation #1: 26-year-old female from a [place] [facility] history of PTSD came in yesterday with SI, patient was evaluated by care team patient now decline SI or HI or hallucination. Patient feels safe to be discharged to the [place] [facility]. Patient vomited once in the morning now there is no nausea or vomiting. Physician observation to discontinue now. And will discharge back to the [place] [facility]. <Chuck Braun MD - Last Filed: 03/05/22 10:30> Time: 10:25 <Chuck Braun MD - Last Filed: 03/05/22 10:30> Medications Administered Generic Name Dose Route Start Last Admin Trade Name Freq PRN Reason Stop Dose Admin Nicotine Polacrilex 4 mg 03/04/22 19:51 03/04/22 20:00 Nicotine Polacrilex 2 Mg Gum BUCCAL 4 mg Q4H PRN Administration other smoking cessation <RISHI Mayberry - Last Filed: 03/04/22 18:46> Medications Administered Generic Name Dose Route Start Last Admin Trade Name Freq PRN Reason Stop Dose Admin Nicotine Polacrilex 4 mg 03/04/22 19:51 03/04/22 20:00 Nicotine Polacrilex 2 Mg Gum BUCCAL 4 mg Q4H PRN Administration other smoking cessation <Chuck Braun MD - Last Filed: 03/05/22 10:30> Medical Decision Making Medical Decision Making MDM Narrative: Patient is a 26 year old assigned female at with a history of PTSD presenting to the emergency department today with suicidal ideation. Patient's physical exam was unremarkable. Patient's blood work was unremarkable. CARE team evaluated the patient and recommended the patient be followed up on in the morning to decide on disposition. I explained my physical exam findings as well as all test results to the patient. I answered all questions asked by the patient. Patient will remain in POD until evaluated by CARE team on the morning of 03/05/2022. <RISHI Mayberry - Last Filed: 03/04/22 18:46> Differential Diagnosis Differential Diagnoses: The differential diagnosis associated with the presentation includes <RISHI Mayberry - Last Filed: 03/04/22 18:46> suicidal ideation <RISHI Mayberry - Last Filed: 03/04/22 18:46> Consult Healthcare Provider Management of the patient was discussed with: Behavioral Health Provider (recommended follow up on morning of 03/05/2022) <RISHI Mayberry - Last Filed: 03/04/22 18:46> Lab Data [facility] Lab Attestation statement: I reviewed the patient's lab results. <RISHI Mayberry - Last Filed: 03/04/22 18:46> Result Diagrams: 03/05/22 05:09 03/05/22 05:09 <RISHI Mayberry - Last Filed: 03/04/22 18:46> Labs: Lab Results 03/04/22 03/04/22 03/04/22 Range/Units 10:48 10:48 10:48 WBC (4.8-10.8) X10*3/uL RBC (4.20-5.50) X10*6/uL Hgb (12.0-16.0) g/dl Hct (37.0-47.0) % MCV (80.0-98.0) fL MCH (27.0-33.0) pg MCHC (31.0-35.0) g/dl RDW (11.0-16.0) % Plt Count (160-400) X10*3/uL MPV (9.4-12.3) fL Absolute Nucleated RBC (0.0-0.012) X10*3/uL Nucleated RBC % (auto) (0.0-0.2) /100WBC Sodium (135-145) mmol/L Potassium (3.3-5.1) mmol/L Chloride (96-108) mmol/L Carbon Dioxide (22-29) mmol/L Anion Gap (12-20) BUN (9-16) mg/dL Creatinine (0.5-1.4) mg/dL Estim Creat Clear Calc Estimated GFR Random Glucose (60-115) mg/dL Calcium (8.4-10.2) mg/dL Urine Color Yellow Urine Appearance Clear Urine pH 7.5 (5.0-9.0) Ur Specific [place] <= 1.005 (1.005-1.025) Urine Protein Negative (Neg-Trace) mg/dL Urine Glucose (UA) Negative (Negative) mg/dL Urine Ketones Negative (Negative) mg/dL Urine Blood Negative (Negative) Urine Nitrite Negative (Negative) Ur Leukocyte Esterase Negative (Negative) Urine Test NEGATIVE (NEGATIVE) Urine Opiates Screen Not Detected (Not Detect) Urine Fentanyl Screen POSITIVE H (Not Detect) Ur Barbiturates Screen Not Detected (Not Detect) Ur Phencyclidine Scrn Not Detected (Not Detect) Ur Amphetamines Screen Not Detected (Not Detect) U Benzodiazepines Scrn Not Detected (Not Detect) Urine Cocaine Screen Not Detected (Not Detect) U Marijuana (THC) Screen POSITIVE H (Not Detect) COVID-19 (SHANE) (Negative) COVID-19 Clin Com 03/04/22 03/05/22 03/05/22 Range/Units 10:49 05:09 05:09 WBC 5.0 (4.8-10.8) X10*3/uL RBC 3.90 L (4.20-5.50) X10*6/uL Hgb 12.1 (12.0-16.0) g/dl Hct 36.5 L (37.0-47.0) % MCV 93.6 (80.0-98.0) fL MCH 31.0 (27.0-33.0) pg MCHC 33.2 (31.0-35.0) g/dl RDW 13.2 (11.0-16.0) % Plt Count 464 H (160-400) X10*3/uL MPV 8.4 L (9.4-12.3) fL Absolute Nucleated RBC 0.000 (0.0-0.012) X10*3/uL Nucleated RBC % (auto) 0.0 (0.0-0.2) /100WBC Sodium 139 (135-145) mmol/L Potassium 4.2 (3.3-5.1) mmol/L Chloride 105 (96-108) mmol/L Carbon Dioxide 26 (22-29) mmol/L Anion Gap 12 (12-20) BUN 12 (9-16) mg/dL Creatinine 0.84 (0.5-1.4) mg/dL Estim Creat Clear Calc 109.5 Estimated GFR > 60 Random Glucose 88 (60-115) mg/dL Calcium 9.1 (8.4-10.2) mg/dL Urine Color Urine Appearance Urine pH (5.0-9.0) Ur Specific [place] (1.005-1.025) Urine Protein (Neg-Trace) mg/dL Urine Glucose (UA) (Negative) mg/dL Urine Ketones (Negative) mg/dL Urine Blood (Negative) Urine Nitrite (Negative) Ur Leukocyte Esterase (Negative) Urine Test (NEGATIVE) Urine Opiates Screen (Not Detect) Urine Fentanyl Screen (Not Detect) Ur Barbiturates Screen (Not Detect) Ur Phencyclidine Scrn (Not Detect) Ur Amphetamines Screen (Not Detect) U Benzodiazepines Scrn (Not Detect) Urine Cocaine Screen (Not Detect) U Marijuana (THC) Screen (Not Detect) COVID-19 (SHANE) Negative (Negative) COVID-19 Clin Com See Note <RISHI Mayberry - Last Filed: 03/04/22 18:46> Lab Results 03/04/22 03/04/22 03/04/22 Range/Units 10:48 10:48 10:48 WBC (4.8-10.8) X10*3/uL RBC (4.20-5.50) X10*6/uL Hgb (12.0-16.0) g/dl Hct (37.0-47.0) % MCV (80.0-98.0) fL MCH (27.0-33.0) pg MCHC (31.0-35.0) g/dl RDW (11.0-16.0) % Plt Count (160-400) X10*3/uL MPV (9.4-12.3) fL Absolute Nucleated RBC (0.0-0.012) X10*3/uL Nucleated RBC % (auto) (0.0-0.2) /100WBC Sodium (135-145) mmol/L Potassium (3.3-5.1) mmol/L Chloride (96-108) mmol/L Carbon Dioxide (22-29) mmol/L Anion Gap (12-20) BUN (9-16) mg/dL Creatinine (0.5-1.4) mg/dL Estim Creat Clear Calc Estimated GFR Random Glucose (60-115) mg/dL Calcium (8.4-10.2) mg/dL Urine Color Yellow Urine Appearance Clear Urine pH 7.5 (5.0-9.0) Ur Specific [place] <= 1.005 (1.005-1.025) Urine Protein Negative (Neg-Trace) mg/dL Urine Glucose (UA) Negative (Negative) mg/dL Urine Ketones Negative (Negative) mg/dL Urine Blood Negative (Negative) Urine Nitrite Negative (Negative) Ur Leukocyte Esterase Negative (Negative) Urine Test NEGATIVE (NEGATIVE) Urine Opiates Screen Not Detected (Not Detect) Urine Fentanyl Screen POSITIVE H (Not Detect) Ur Barbiturates Screen Not Detected (Not Detect) Ur Phencyclidine Scrn Not Detected (Not Detect) Ur Amphetamines Screen Not Detected (Not Detect) U Benzodiazepines Scrn Not Detected (Not Detect) Urine Cocaine Screen Not Detected (Not Detect) U Marijuana (THC) Screen POSITIVE H (Not Detect) COVID-19 (SHANE) (Negative) COVID-19 Clin Com 03/04/22 03/05/22 03/05/22 Range/Units 10:49 05:09 05:09 WBC 5.0 (4.8-10.8) X10*3/uL RBC 3.90 L (4.20-5.50) X10*6/uL Hgb 12.1 (12.0-16.0) g/dl Hct 36.5 L (37.0-47.0) % MCV 93.6 (80.0-98.0) fL MCH 31.0 (27.0-33.0) pg MCHC 33.2 (31.0-35.0) g/dl RDW 13.2 (11.0-16.0) % Plt Count 464 H (160-400) X10*3/uL MPV 8.4 L (9.4-12.3) fL Absolute Nucleated RBC 0.000 (0.0-0.012) X10*3/uL Nucleated RBC % (auto) 0.0 (0.0-0.2) /100WBC Sodium 139 (135-145) mmol/L Potassium 4.2 (3.3-5.1) mmol/L Chloride 105 (96-108) mmol/L Carbon Dioxide 26 (22-29) mmol/L Anion Gap 12 (12-20) BUN 12 (9-16) mg/dL Creatinine 0.84 (0.5-1.4) mg/dL Estim Creat Clear Calc 109.5 Estimated GFR > 60 Random Glucose 88 (60-115) mg/dL Calcium 9.1 (8.4-10.2) mg/dL Urine Color Urine Appearance Urine pH (5.0-9.0) Ur Specific [place] (1.005-1.025) Urine Protein (Neg-Trace) mg/dL Urine Glucose (UA) (Negative) mg/dL Urine Ketones (Negative) mg/dL Urine Blood (Negative) Urine Nitrite (Negative) Ur Leukocyte Esterase (Negative) Urine Test (NEGATIVE) Urine Opiates Screen (Not Detect) Urine Fentanyl Screen (Not Detect) Ur Barbiturates Screen (Not Detect) Ur Phencyclidine Scrn (Not Detect) Ur Amphetamines Screen (Not Detect) U Benzodiazepines Scrn (Not Detect) Urine Cocaine Screen (Not Detect) U Marijuana (THC) Screen (Not Detect) COVID-19 (SHANE) Negative (Negative) COVID-19 Clin Com See Note <Chuck Braun MD - Last Filed: 03/05/22 10:30> Discharge Plan Discharge Clinical Impression: Suicidal ideation, PTSD (post-traumatic stress disorder) <RISHI Mayberry - Last Filed: 03/04/22 18:46> Patient Disposition: Home, Self-Care <RISHI Mayberry - Last Filed: 03/04/22 18:46> Instructions: Post Traumatic Stress Disorder (ED) <RISHI Mayberry - Last Filed: 03/04/22 18:46> Prescriptions: No Action ondansetron HCl 8 mg tablet 1 tab PO BEDTIME aripiprazole 10 mg tablet 1 tab PO QAM <RISHI Mayberry - Last Filed: 03/04/22 18:46> Interventions: [place]-Suicide Risk Severity Scale Last Done: 03/04/22 10:52 <RISHI Mayberry - Last Filed: 03/04/22 18:46>
[2022-03-04 11:03] LABS: Appearance Urine Clear; Color Urine Yellow; Glucose Urine UA Negative (Negative); Leukocyte Esterase Urine Negative (Negative); Nitrite Urine Negative (Negative); PH 7.5 (5.0-9.0); Specific Gravity - Urine <= 1.005 (1.005-1.025); Urine Blood Negative (Negative); Urine Ketones Negative (Negative); Urine Protein Negative (Neg-Trace)
[2022-03-04 11:07] LABS: UPreg QC Valid YES; Urine Pregnancy NEGATIVE (NEGATIVE)
[2022-03-04 11:12] LABS: Amphetamine Screen Urine Not Detected (Not Detect); Barbiturates, Urine Not Detected (Not Detect); Benzodiazepines Screen Urine Not Detected (Not Detect); Cannabinoid Screen Urine POSITIVE (Not Detect); Cocaine Screen Urine Not Detected (Not Detect); Fentanyl, urine POSITIVE (Not Detect); Opiate Screen Urine Not Detected (Not Detect); Phencyclidine Screen Urine Not Detected (Not Detect)
[2022-03-04 11:18] LABS: COVID-19 Test Negative (Negative); IDNOW Serial# BCCEAD1C
--- NOTE | 2022-03-04 14:55 | MHC.CARE ---
patient is a bed search and will have LOC / MSU reassessed tomorrow
--- NOTE | 2022-03-04 16:22 | MHC.CARE ---
Spoke to Major, payroll accounting manager from [employer] [place] and informed him that pt will remain here for the night and be a f/u for tomorrow.
--- NOTE | 2022-03-04 16:55 | PC.NURSE ---
This patient began to strike her head against the wall during another patients verbal outburst. This RN went in to address the behavior with the patient. Care team also presented to her room to help with coping skills. pt is calmer now
--- NOTE | 2022-03-04 17:14 | MHC.CARE ---
CARE Team provides support and distraction to pt, who becomes reasonably upset when another pt is yelling for an extensive period of time. Pt engages in light, brief headbanging.
[2022-03-04] MEDS: Nicotine Polacrilex 2 MG GUM 4 MG BUCCAL (20:00)
[2022-03-05 05:14] LABS: Hematocrit 36.5 % (37.0-47.0); Hemoglobin 12.1 g/dl (12.0-16.0); Mean Corpuscular HGB Conc 33.2 g/dl (31.0-35.0); Mean Corpuscular Volume 93.6 fL (80.0-98.0); Mean Platelet Volume 8.4 fL (9.4-12.3); Platelet Count 464 X10*3/uL (160-400); Red Cell Distribution Width 13.2 % (11.0-16.0)
[2022-03-05 05:37] LABS: Anion Gap 12 (12-20); Blood Urea Nitrogen 12 mg/dL (9-16); Calcium 9.1 mg/dL (8.4-10.2); Carbon Dioxide 26 mmol/L (22-29); Chloride 105 mmol/L (96-108); Creatinine Clr Calc Pharmacy 109.5; Estimated Glomerular Filt Rate > 60; Glucose Random 88 mg/dL (60-115); Potassium 4.2 mmol/L (3.3-5.1); Sodium 139 mmol/L (135-145)
[2022-03-05 06:08] VITALS: BP 124/78; PULSE 76; RESP 16; TEMP 36.8; O2SAT 99
--- NOTE | 2022-03-05 06:13 | PC.NURSE ---
Patient slept through the night, no distress observed/reported, behavior appropriate and non concerning, med rec completed/pending provider's approval, VSS, patient is NICCI follow up by care team pending psych consult, awaiting care team consult in the morning, psych consult orered, will continue to monitor.
--- NOTE | 2022-03-05 07:28 | PC.NURSE ---
Report from ALPHONSO Mcfarland. Per report pt is to be re-evaluated today, appears to be sleeping on stretcher at this time, resp reg and even, NAD.
[2022-03-05 09:39] VITALS: BP 110/67; PULSE 76; TEMP 36.7; O2SAT 99
== END 2022-03-05 10:48 | disposition home or self-care (01) ==
PROVIDERS: Physician Assistant Medical; Emergency Provider Student in an Organized Health Care Education/Training Program; PCP Nurse Practitioner Family
DX: R45.851 Suicidal ideations (principal); F43.10 Post-traumatic stress disorder, unspecified; Z20.822 Contact with and (suspected) exposure to COVID-19; F25.0 Schizoaffective disorder, bipolar type; F41.9 Anxiety disorder, unspecified; F12.90 Cannabis use, unspecified, uncomplicated; Z87.891 Personal history of nicotine dependence; Z79.899 Other long term (current) drug therapy
CPT/HCPCS: 80048; 80307; 81003; 81025; 85027; 87635; 99285; S9485